=== PATIENT | male | born 1955 | race Caucasian/White ===

== ENCOUNTER → 2016-10-24 | Outpatient (CLI) | payer MEDICARE, OTHER ==
--- NOTE | 2016-10-24 15:46 | US ---
EXAMINATION TYPE: US bladder DATE OF EXAM: 10/24/2016 3:24 PM COMPARISON: US 2014 CLINICAL HISTORY: R35.0 FREQ URINATION. EXAM MEASUREMENTS: Post Void Residual Volume: 15.9 mL Color Doppler performed to assess ureteral jets. Bilateral Jets seen: small right jet was seen; prominent left jet seen Normal Post Void Residual (less than 50ml): Yes Incidental finding: prominent prostate is noted. IMPRESSION: 1. Prominent prostate. 2. Unremarkable incompletely distended urinary bladder.
== END | disposition home or self-care (01) ==
LOC: RADUSWWP 14:54
PROVIDERS: ATTEND Family Medicine
DX: R35.1 Nocturia (principal); R35.0 Frequency of micturition
CPT/HCPCS: 76857

== ENCOUNTER 2020-03-22 09:35 | Inpatient (IN) | payer MEDICARE ==
[2020-03-22 10:23] LABS: Basophils # (A) 0.1 k/uL (0-0.2); Basophils % (A) 1 %; Eosinophils # (A) 0.1 k/uL (0-0.7); Eosinophils % (A) 2 %; HCT 47.7 % (39.0-53.0); HGB 15.9 gm/dL (13.0-17.5); Lymphocytes # (A) 1.4 k/uL (1.0-4.8); Lymphocytes % (A) 19 %; MCH 34.4 pg (25.0-35.0); MCHC 33.3 g/dL (31.0-37.0); MCV 103.3 fL (80.0-100.0); Macrocytosis Slight; Mean Platelet Volume 6.8; Monocytes # (A) 0.5 k/uL (0-1.0); Monocytes % (A) 6 %; Neutrophils # (A) 5.4 k/uL (1.3-7.7); Neutrophils % (A) 71 %; Platelet Count 199 k/uL (150-450); RBC 4.61 m/uL (4.30-5.90); RDW 13.7 % (11.5-15.5); WBC 7.5 k/uL (3.8-10.6)
[2020-03-22 10:31] LABS: INR 1.1 (<1.2); Prothrombin Time 11.2 sec (9.0-12.0)
[2020-03-22 10:33] LABS: Calcium 9.5 mg/dL (8.4-10.2); Potassium 4.7 mmol/L (3.5-5.1)
--- NOTE | 2020-03-22 10:38 | XR ---
EXAMINATION TYPE: XR chest 2V DATE OF EXAM: 03/22/2020 COMPARISON: NONE HISTORY: Weakness. TECHNIQUE: Frontal and lateral views of the chest are obtained. FINDINGS: There is no focal air space opacity, pleural effusion, or pneumothorax seen. The cardiac silhouette size is enlarged. There is ectatic aortic knob causing right-sided tracheal deviation. Th e osseous structures are intact. IMPRESSION: Cardiomegaly without acute pulmonary process.
[2020-03-22] MEDS ORDERED: hydrALAZINE HCL 20 MG/ML 1 ML VIAL IVP STA (11:18)
[2020-03-22] MEDS ORDERED: amLODIPine 5 MG TAB PO STA (11:18)
[2020-03-22 11:20] LABS: Appearance,Urine Clear (Clear); Bacteria,Urine Rare /hpf; Bilirubin,Urine Negative (Negative); Blood,Urine Small (Negative); Color,Urine Yellow; Glucose,Urine (UA) Negative (Negative); Hyaline Casts,Urine 1 /lpf (0-2); Ketones,Urine Negative (Negative); Leukocyte Esterase,Urine Negative (Negative); Mucus,Urine Few /hpf; Nitrite,Urine Negative (Negative); Protein,Urine Trace (Negative); RBC,Urine 13 /hpf (0-5); Specific Gravity,Urine 1.023 (1.001-1.035); Squamous Epithelial Cell,Urine <1 /hpf (0-4); WBC,Urine 2 /hpf (0-5)
--- NOTE | 2020-03-22 11:23 | CT ---
EXAMINATION TYPE: CT brain wo con DATE OF EXAM: 03/22/2020 HISTORY: Off balance, AMS CT DLP: 1153.4 mGycm. Automated Exposure Control for Dose Reduction was Utilized. TECHNIQUE: CT scan of the head is performed without contrast. COMPARISON: None. FINDINGS: There is no acute intracranial hemorrhage or midline shift identified. There is diffuse v entricular and sulcal prominence consistent with diffuse age-related cerebral atrophy. Degree of vent ricular dilatation slightly out of proportion to degree of sulcal effacement. Fourth ventricle is not suspiciously prominent. Prominent CSF fossa inferiorly. Suspect evelyn cisterna magna. There is prominent nonspecific low-attenuation in the periventricular white matter. O ld lacunar infarct anterior medial left thalamus axial image 29. Hypoplastic left frontal sinus. The globes are intact and the visualized sinuses otherwise are clear. IMPRESSION: No acute intracranial hemorrhage or midline shift. There is mild to moderate diffuse ce rebral atrophy, cannot exclude underlying normal pressure hydrocephalus. Advanced nonspecific white matter changes present in the bases of proximal or proximal vessel ischemic change in patient this ag e. Other etiologies not excluded. Old anteromedial left thalamic lacunar infarct. Correlation with old outside CT or MRI would be beneficial to assess change.
--- NOTE | 2020-03-22 11:32 | ED ---
Weakness HPI - General Chief complaint: Weakness Stated complaint: off balance Time Seen by Provider: 03/22/20 09:47 Source: patient Mode of arrival: wheelchair Limitations: no limitations - History of Present Illness Initial comments: 64-year-old smoker with history of previous CVA, HTN presents emergency department today for chief complaint of off balance, bizarre behavior. Moist bedside states that patient seemed off balance today she states that he seemed wobbly when walking. She states that over the past week he has also been making bizarre comments that almost seems like he has dementia. She does not have specific examples very vague in detail she states does not appear lethargic patient has no complaints she states does not feel dizzy and nauseated [place] denies any vomiting or headaches. Patient denies any chest pain shortness of breath leg swelling patient denies visual changes or double vision. Patient is extremely hard of hearing but is able to read lips and answer questions appropriately. Patient family has no additional concerns. Patient pleasant appears in no distress on arrival. - Related Data Home Medications Medication Instructions Recorded Confirmed No Known Home Medications 03/22/20 03/22/20 Allergies Allergy/AdvReac Type Severity Reaction Status Date / Time No Known Allergies Allergy Verified 03/22/20 11:05 Review of Systems ROS Statement: Those systems with pertinent positive or pertinent negative responses have been documented in the HPI. ROS Other: All systems not noted in ROS Statement are negative. Past Medical History Past Medical History: Hypertension History of Any Multi-Drug Resistant Organisms: None Reported Past Surgical History: Unable to Obtain Past Psychological History: No Psychological Hx Reported Smoking Status: Current every day smoker Past Alcohol Use History: Rare Past Drug Use History: None Reported General Exam - General Exam Comments Initial Comments: General: The patient is awake and alert, in no distress Eye: +3 mm pupils are equal, round and reactive to light, extra-ocular movements are intact. No nystagmus. There is normal conjunctiva bilaterally. No signs of icterus. Ears, nose, mouth and throat: There are moist mucous membranes and no oral lesions. Neck: The neck is supple, there is no tenderness or JVD. Cardiovascular: There is a regular rate and rhythm. No murmur, rub or gallop is appreciated. Respiratory: Lungs are clear to auscultation, respirations are non-labored, breath sounds are equal. No wheezes, stridor, rales, or rhonchi. Gastrointestinal: Soft, non-distended, non-tender abdomen without masses or organomegaly noted. There is no rebound or guarding present. Musculoskeletal: Normal ROM, no tenderness. Strength 5/5 of the UE and LE equal in comparison b/l. Sensation intact of UE and LE b/l equal in comparison b/l. Radial pulses equal bilaterally 2+. Neurological: A&O x 3. CN II-XII intact grossly, There are no obvious motor or sensory deficits. Coordination appears grossly intact. Speech is normal. No pronator drift. Smooth and coordinated finger to nose, heel to ding. Skin: Skin is warm and dry and no rashes or lesions are noted. Psychiatric: Cooperative, appropriate mood & affect, normal judgment. Limitations: no limitations Course Vital Signs 03/22/20 03/22/20 03/22/20 09:36 11:18 12:00 Temperature 98.7 F Pulse Rate 80 72 77 Respiratory 16 18 18 Rate Blood Pressure 185/102 171/105 167/95 O2 Sat by Pulse 98 99 98 Oximetry Medical Decision Making - Medical Decision Making Labs stable. CT cannot rule out normal pressure hydrocephalus but otherwise no other definite findings aside from age related changed. Patient CXR clear. Lungs clear. Heart sounds within acceptable limits. No focal neurological deficits aside from patient appearing weakn/off balance with standing. UA within acceptable limits. Pt has no personal complaints. Patient case discussed with Dr. Sinclair who is agreeable to admission for neurological consultation. Ventricular rate 74 bpm, TN interval 186 pulse seconds, 2 taoist 72 ms, QT/QTC 386/428 ms. This is normal sinus there is no specific ST changes nonspecific T-wave abnormality. - Lab Data Result diagrams: 03/22/20 10:11 03/22/20 10:11 Lab Results 03/22/20 03/22/20 03/22/20 Range/Units 10:11 10:11 10:11 WBC 7.5 (3.8-10.6) k/uL RBC 4.61 (4.30-5.90) m/uL Hgb 15.9 (13.0-17.5) gm/dL Hct 47.7 (39.0-53.0) % MCV 103.3 H (80.0-100.0) fL MCH 34.4 (25.0-35.0) pg MCHC 33.3 (31.0-37.0) g/dL RDW 13.7 (11.5-15.5) % Plt Count 199 (150-450) k/uL Neutrophils % 71 % Lymphocytes % 19 % Monocytes % 6 % Eosinophils % 2 % Basophils % 1 % Neutrophils # 5.4 (1.3-7.7) k/uL Lymphocytes # 1.4 (1.0-4.8) k/uL Monocytes # 0.5 (0-1.0) k/uL Eosinophils # 0.1 (0-0.7) k/uL Basophils # 0.1 (0-0.2) k/uL Macrocytosis Slight PT 11.2 (9.0-12.0) sec INR 1.1 (<1.2) APTT 23.0 (22.0-30.0) sec Sodium (137-145) mmol/L Potassium (3.5-5.1) mmol/L Chloride (98-107) mmol/L Carbon Dioxide (22-30) mmol/L Anion Gap mmol/L BUN (9-20) mg/dL Creatinine (0.66-1.25) mg/dL Est GFR (CKD-EPI)AfAm (>60 ml/min/1.73 sqM) Est GFR (CKD-EPI)NonAf (>60 ml/min/1.73 sqM) Glucose (74-99) mg/dL Plasma Lactic Acid Kojo (0.7-2.0) mmol/L Calcium (8.4-10.2) mg/dL Magnesium (1.6-2.3) mg/dL Total Bilirubin (0.2-1.3) mg/dL AST (17-59) U/L ALT (4-49) U/L Alkaline Phosphatase (38-126) U/L Troponin I (0.000-0.034) ng/mL NT-Pro-B Natriuret Pep pg/mL Total Protein (6.3-8.2) g/dL Albumin (3.5-5.0) g/dL Urine Color Yellow Urine Appearance Clear (Clear) Urine pH 6.0 (5.0-8.0) Ur Specific [place] 1.023 (1.001-1.035) Urine Protein Trace H (Negative) Urine Glucose (UA) Negative (Negative) Urine Ketones Negative (Negative) Urine Blood Small H (Negative) Urine Nitrite Negative (Negative) Urine Bilirubin Negative (Negative) Urine Urobilinogen 6.0 (<2.0) mg/dL Ur Leukocyte Esterase Negative (Negative) Urine RBC 13 H (0-5) /hpf Urine WBC 2 (0-5) /hpf Ur Squamous Epith Cells <1 (0-4) /hpf Urine Bacteria Rare H (None) /hpf Hyaline Casts 1 (0-2) /lpf Urine Mucus Few H (None) /hpf 03/22/20 03/22/20 03/22/20 Range/Units 10:11 10:11 10:11 WBC (3.8-10.6) k/uL RBC (4.30-5.90) m/uL Hgb (13.0-17.5) gm/dL Hct (39.0-53.0) % MCV (80.0-100.0) fL MCH (25.0-35.0) pg MCHC (31.0-37.0) g/dL RDW (11.5-15.5) % Plt Count (150-450) k/uL Neutrophils % % Lymphocytes % % Monocytes % % Eosinophils % % Basophils % % Neutrophils # (1.3-7.7) k/uL Lymphocytes # (1.0-4.8) k/uL Monocytes # (0-1.0) k/uL Eosinophils # (0-0.7) k/uL Basophils # (0-0.2) k/uL Macrocytosis PT (9.0-12.0) sec INR (<1.2) APTT (22.0-30.0) sec Sodium 136 L (137-145) mmol/L Potassium 4.7 (3.5-5.1) mmol/L Chloride 105 (98-107) mmol/L Carbon Dioxide 26 (22-30) mmol/L Anion Gap 5 mmol/L BUN 20 (9-20) mg/dL Creatinine 1.15 (0.66-1.25) mg/dL Est GFR (CKD-EPI)AfAm 77 (>60 ml/min/1.73 sqM) Est GFR (CKD-EPI)NonAf 66 (>60 ml/min/1.73 sqM) Glucose 105 H (74-99) mg/dL Plasma Lactic Acid Kojo 0.8 (0.7-2.0) mmol/L Calcium 9.5 (8.4-10.2) mg/dL Magnesium 2.0 (1.6-2.3) mg/dL Total Bilirubin 1.0 (0.2-1.3) mg/dL AST 24 (17-59) U/L ALT 18 (4-49) U/L Alkaline Phosphatase 43 (38-126) U/L Troponin I <0.012 (0.000-0.034) ng/mL NT-Pro-B Natriuret Pep pg/mL Total Protein 7.0 (6.3-8.2) g/dL Albumin 4.0 (3.5-5.0) g/dL Urine Color Urine Appearance (Clear) Urine pH (5.0-8.0) Ur Specific [place] (1.001-1.035) Urine Protein (Negative) Urine Glucose (UA) (Negative) Urine Ketones (Negative) Urine Blood (Negative) Urine Nitrite (Negative) Urine Bilirubin (Negative) Urine Urobilinogen (<2.0) mg/dL Ur Leukocyte Esterase (Negative) Urine RBC (0-5) /hpf Urine WBC (0-5) /hpf Ur Squamous Epith Cells (0-4) /hpf Urine Bacteria (None) /hpf Hyaline Casts (0-2) /lpf Urine Mucus (None) /hpf 03/22/20 Range/Units 10:11 WBC (3.8-10.6) k/uL RBC (4.30-5.90) m/uL Hgb (13.0-17.5) gm/dL Hct (39.0-53.0) % MCV (80.0-100.0) fL MCH (25.0-35.0) pg MCHC (31.0-37.0) g/dL RDW (11.5-15.5) % Plt Count (150-450) k/uL Neutrophils % % Lymphocytes % % Monocytes % % Eosinophils % % Basophils % % Neutrophils # (1.3-7.7) k/uL Lymphocytes # (1.0-4.8) k/uL Monocytes # (0-1.0) k/uL Eosinophils # (0-0.7) k/uL Basophils # (0-0.2) k/uL Macrocytosis PT (9.0-12.0) sec INR (<1.2) APTT (22.0-30.0) sec Sodium (137-145) mmol/L Potassium (3.5-5.1) mmol/L Chloride (98-107) mmol/L Carbon Dioxide (22-30) mmol/L Anion Gap mmol/L BUN (9-20) mg/dL Creatinine (0.66-1.25) mg/dL Est GFR (CKD-EPI)AfAm (>60 ml/min/1.73 sqM) Est GFR (CKD-EPI)NonAf (>60 ml/min/1.73 sqM) Glucose (74-99) mg/dL Plasma Lactic Acid Kojo (0.7-2.0) mmol/L Calcium (8.4-10.2) mg/dL Magnesium (1.6-2.3) mg/dL Total Bilirubin (0.2-1.3) mg/dL AST (17-59) U/L ALT (4-49) U/L Alkaline Phosphatase (38-126) U/L Troponin I (0.000-0.034) ng/mL NT-Pro-B Natriuret Pep 104 pg/mL Total Protein (6.3-8.2) g/dL Albumin (3.5-5.0) g/dL Urine Color Urine Appearance (Clear) Urine pH (5.0-8.0) Ur Specific [place] (1.001-1.035) Urine Protein (Negative) Urine Glucose (UA) (Negative) Urine Ketones (Negative) Urine Blood (Negative) Urine Nitrite (Negative) Urine Bilirubin (Negative) Urine Urobilinogen (<2.0) mg/dL Ur Leukocyte Esterase (Negative) Urine RBC (0-5) /hpf Urine WBC (0-5) /hpf Ur Squamous Epith Cells (0-4) /hpf Urine Bacteria (None) /hpf Hyaline Casts (0-2) /lpf Urine Mucus (None) /hpf Disposition Clinical Impression: Generalized weakness, Altered mental status Disposition: ADMITTED IP TO THIS [facility] Condition: Stable Is patient prescribed a controlled substance at d/c from ED?: No Time of Disposition: 11:53 Decision to Admit Reason: Admit from EC Decision Date: 03/22/20 Decision Time: 11:53
[2020-03-22] MEDS ORDERED: NALOXONE 0.4 MG/ML 1 ML VIAL IV PRN (11:51)
[2020-03-22] MEDS: SODIUM CHLORIDE 0.9% 1,000 ML IV SCH (12:19)
[2020-03-22] MEDS ORDERED: NICOTINE 21MG/24HR PATCH TRANSDERM STA (12:22)
--- NOTE | 2020-03-22 17:26 | P.CNNES ---
History of Present Illness Consult date: 03/22/20 Requesting physician: Mariam Alcaraz Reason for Consult: Wobbly, acute behavioral changes past week. History of Present Illness: Patient is a 64-year-old male came to the hospital today at 9:30 AM for evaluation of balance issues, bizarre behavior. It was mentioned that patient was off balance today and was appearing wobbly when walking. Patient in the past week has been making bizarre commands that almost seems like has dementia. No dizziness or headache or nausea. Patient is extremely hard of hearing. Patient tells me that his balance has been off for last 3 days. Denies any focal symptoms. Patient states he had history of a stroke 3 years ago, that affected left side of the body. He feels his memory has been going downhill for last couple years. He is retired, lives with his . Patient's Vital signs on arrival was blood pressure 185/102, pulse rate 80, temperature 98.7. Computed tomography scan of head showed no acute intracranial hemorrhage or midline shift. There is mild to moderate diffuse cerebral atrophy, cannot exclude underlying normal pressure hydrocephalus. Advanced nonspecific white matter changes present. Old anterior medial left thalamic lacunar infarct. I reviewed the computed tomography scan on the computer, and agree with evidence of hydrocephalus. EKG shows normal sinus rhythm. Minimal voltage criteria for LVH. Chest x-ray showed cardiomegaly without acute pulmonary process. Patient's blood test shows normal CBC with elevated MCV 103.3, PT/PTT. Chem-20 is normal. UA showed 13 RBC and rare bacteria. Patient has smoked 1 pack per day for 20 years. Denies diabetes. Review of Systems As above in detail. Otherwise all 14 point review of systems reviewed and unremarkable. Patient does have some urgency. Patient denies any fever. Headaches states "not very often". Past Medical History Past Medical History: CVA/TIA, Hearing Disorder / Deafness, Hypertension, Renal Disease Additional Past Medical History / Comment(s): 2012 CVA with no residual, chronic kidney disease, occasional urinary incontinence/dribbles/frequent urination, occasional back pain. History of Any Multi-Drug Resistant Organisms: None Reported Past Surgical History: Appendectomy Additional Past Surgical History / Comment(s): colonoscopy Past Anesthesia/Blood Transfusion Reactions: No Reported Reaction Smoking Status: Current every day smoker - Past Family History Mother Family Medical History: Dementia, Hypertension Father Family Medical History: Cancer Additional Family Medical History / Comment(s): Lung cancer. Father was a smoker. Medications and Allergies Home Medications Medication Instructions Recorded Confirmed Type No Known Home Medications 03/22/20 03/22/20 History Allergies Allergy/AdvReac Type Severity Reaction Status Date / Time No Known Allergies Allergy Verified 03/22/20 11:05 Physical Examination - Vital Signs Vital Signs: Vital Signs Temp Pulse Pulse Pulse Resp BP BP 03/22/20 13:40 97.6 F 77 18 167/99 03/22/20 13:37 72 16 03/22/20 12:00 77 18 167/95 03/22/20 11:18 72 18 171/105 03/22/20 09:36 98.7 F 80 16 185/102 Pulse Ox 03/22/20 13:40 98 03/22/20 13:37 03/22/20 12:00 98 03/22/20 11:18 99 03/22/20 09:36 98 Intake and Output 03/21/20 03/22/20 03/22/20 22:59 06:59 14:59 Intake Total 780 Balance 780 Intake: Intake, IV Titration 60 Amount Sodium Chloride 0.9% 1, 60 000 ml @ 20 mls/hr IV . Q24H [facility] Rx#:[id number] Oral 720 Other: Voiding Method Bedside Commode Urinal # Voids 3 Weight 113.398 kg On examination patient is an elderly male, in no acute distress. Patient is alert and awake. He is very hard of hearing. Speech and language fu nctions are normal. Patient knows that it is March although states the year is 2021. He knows that he is in [facility] in [place]. Patient speaks with low volume. On cranial examination pupils are round and reacting to light, visual turner are full on confrontation extraocular muscles are intact with no nystagmus. Face is symmetric, tongue protrudes the midline. Palatal elevation and sensation normal. Hearing is severely decreased shoulder shrug normal on muscle strength testing there is no pronator drift and the strength is normal in arms and legs distally and proximally. Reflexes are 1 in the upper limbs, 3 at the knees 2 at ankles and plantars are up on the left but questionable up on the right. Sensory touch is equal. No ataxia for [id number] testing. Tone and bulk of muscles normal. Patient appears to have some truncal ataxia. According to the nursing report, when he sits on the edge of the bed, he tends to fall backwards. There is no obvious bruit, S1 and S2 audible abdomen soft nontender chest is clear. Peripheral pulses present. No edema Results - Laboratory Findings CBC and BMP: 03/22/20 10:11 03/22/20 10:11 Abnormal Lab Findings: Abnormal Labs 03/22/20 03/22/20 03/22/20 10:11 10:11 10:11 MCV 103.3 H Sodium 136 L Glucose 105 H Urine Protein Trace H Urine Blood Small H Urine RBC 13 H Urine Bacteria Rare H Urine Mucus Few H Assessment and Plan Assessment: * 64-year-old male admitted with a three-day history of gait imbalance, mental confusion. Computed tomography scan of the head revealed possibility of hydrocephalus. Rule out NPH. Rule out secondary causes. * Hypertension * Hard of hearing * Tobacco use Plan: * MRI of brain with and without contrast to evaluate for hydrocephalus, rule out mass. * Patient would need lumbar puncture with large volume tap, to assess if there is any clinical improvement. If his mentation and gait improves after lumbar puncture, then he would need neurosurgical consultation for consideration of ventricular paratonia shunt. We will also send spinal fluid to rule out any signs of infection. * EEG * B12, folate, TSH, A1c, RPR. * We will follow.
[2020-03-22 19:23] LABS: Hemoglobin A1C 5.3 % (4.0-6.0)
--- NOTE | 2020-03-22 21:37 | MR ---
EXAMINATION TYPE: MR brain wo con DATE OF EXAM: 03/22/2020 COMPARISON: None HISTORY: Hydrocephalus Multiplanar multiecho imaging of the brain was performed without contrast. There is enlargement of the lateral third and fourth ventricles. There is diffuse cerebral atrophy. T here is extensive increased signal in the periventricular white matter on the T2 and FLAIR images. Th ere is coalescent signal throughout the periventricular white matter. There is severe thinning of the corpus callosum. Diffusion images show no sign of an acute infarct. IMPRESSION: Moderately severe hydrocephalus with white matter signal changes consistent with transependymal edema and chronic small vessel ischemia.
[2020-03-22 23:11] LABS: Folate, Serum 2.8 ng/mL
[2020-03-23] MEDS: ASPIRIN 81 MG PO SCH (12:08)
[2020-03-23] MEDS ORDERED: LORazepam 2 MG/ML INJ IV STA (12:08)
[2020-03-23] MEDS: CLOPIDOGREL 75 MG TAB PO SCH (12:08)
[2020-03-23] MEDS: CYANOCOBALAMIN 1,000 MCG/ML 1 ML VIAL IM SCH (12:15)
[2020-03-23] MEDS: hydrALAZINE HCL 10 MG TAB PO SCH ×3 (14:38→22:24)
[2020-03-23] MEDS: SODIUM CHLORIDE 0.9% 1,000 ML IV SCH (14:39)
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
[2020-03-23] MEDS: FOLIC ACID 1 MG TAB PO SCH (16:37)
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
--- NOTE | 2020-03-23 16:55 | PN ---
PROGRESS NOTE CHIEF COMPLAINT: Mental status changes. HISTORY OF PRESENT ILLNESS: This gentleman remains awake and alert. His speech seems to be quite good. He is slightly confused, according to the family and he is more coherent than yesterday. I did not see him yesterday because I was not notified of his admission until this morning. PHYSICAL EXAMINATION: Chest is clear. Cardiac exam is normal. Abdomen is soft and nontender. Extremities are normal. Speech seems normal. He is alert to time, place, and person. He still has some weakness on the left. IMPRESSION: 1. Mental status changes. 2. Vascular dementia. 3. Hypertension. 4. Chronic obstructive pulmonary disease. 5. Presbycusis. PLAN: 1. Continue workup. 2. Control hypertension. 3. Physical, speech, and occupational therapies. 4. Discharge planning. MMKAITYL / IJN: [id number] /
[2020-03-23] MEDS: LORazepam 2 MG/ML INJ IV PRN (21:23)
[2020-03-24 11:04] LABS: Glucose,Whole Blood 97 mg/dL (75-99)
[2020-03-24] MEDS ORDERED: CLEVIDIPINE BUTYRATE 25 MG/50 ML VIAL IV ONE (11:22)
[2020-03-24] MEDS ORDERED: MIDAZOLAM 2 MG/2 ML VIAL ONE ×2 (11:25→11:30)
[2020-03-24] MEDS ORDERED: levETIRAcetam IV 1,000 MG in SALINE 1 100ML.BAG IVPB SCH (12:00)
[2020-03-24] MEDS ORDERED: ACYCLOVIR SODIUM 1,150 MG in SODIUM CHLORIDE 0.9% 250 ML IVPB SCH (12:00)
[2020-03-24] MEDS ORDERED: ACYCLOVIR SODIUM 1,000 MG in SODIUM CHLORIDE 0.9% 250 ML IVPB SCH (12:00)
[2020-03-24] MEDS ORDERED: ACETAMINOPHEN IV (For NPO) 1,000 MG in EMPTY BAG 1 BAG IVPB SCH (12:00)
[2020-03-24 12:01] VITALS: TEMP 100.7
[2020-03-24] MEDS: CYANOCOBALAMIN 1,000 MCG/ML 1 ML VIAL IM SCH (12:06)
[2020-03-24] MEDS: CLOPIDOGREL 75 MG TAB PO SCH (12:06)
[2020-03-24] MEDS: ASPIRIN 81 MG PO SCH (12:06)
[2020-03-24] MEDS: FOLIC ACID 1 MG TAB PO SCH (12:07)
[2020-03-24 12:49] LABS: Glucose,Whole Blood 96 mg/dL (75-99)
[2020-03-24] MEDS ORDERED: hydrALAZINE HCL 25 MG TAB PO SCH (13:00)
[2020-03-24] MEDS: hydrALAZINE HCL 10 MG TAB PO SCH (13:11)
[2020-03-24] MEDS ORDERED: CLEVIDIPINE BUTYRATE 25 MG in EMPTY BAG 1 BAG IV SCH (13:15)
[2020-03-24] MEDS: LORazepam 2 MG/ML INJ IV PRN (13:18)
[2020-03-24 13:59] LABS: Glucose,CSF 58 mg/dL (40-70); Total Protein,CSF 76 mg/dL (12-60)
[2020-03-24 14:05] LABS: Appearance,CSF Clear; CSF Tube Number 4; CSF Tube Volume 1.5; Nucleated Cells, CSF 1 u/L (0-5); Red Blood Cell,CSF 2 u/L (0-10)
[2020-03-24] MEDS: SODIUM CHLORIDE 0.9% 1,000 ML IV SCH (14:23)
--- NOTE | 2020-03-24 14:33 | P.CNPUL ---
History of Present Illness Consult date: 03/24/20 Chief complaint: altered mental status History of present illness: 64-year-old male patient who was admitted to the hospital because of an altered mental status. The patient apparently was off balance and he was having difficulties walking and an incentive was having balance issues and bizarre behavior. The patient denied having any headache. No neck stiffness. No focal neurological deficit. He has had a previous history of CVA around 3 years ago. This affected left side of his body. He is hard of hearing. The patient came into the hospital and he was hemodynamically stable. He was hypertensive initially. CAT scan of the brain showed no evidence of any tachycardia or hemorrhage or midline shift. There was mild to moderate diffuse cerebral atrophy and underlying normal pressure hydrocephalus was considered. He was seen by neurology. MRI of the brain was done that showed moderate to severe hydrocephalus with white matter signal changes consistent with transependymal edema and chronic small vessel ischemia.lumbar puncture was attempted by interventional radiology. This failure that the patient was quite restless and moving. Based on that, LP was not done. The patient a chest to the intensive care unit. Ultimately plan is to transfer this patient to [facility]. meanwhile, based on the diminished level of consciousness, the patient got transferred to the ICU. The patient will be started on IV acyclovir and Keppra pending results of the lumbar puncture and pending EEG. The patient was also started on Effexor for blood pressure control noting that the blood pressure was quite elevated.no history of head trauma. No history of substance abuse. Review of Systems ROS unobtainable: due to mental status Past Medical History Past Medical History: CVA/TIA, Hearing Disorder / Deafness, Hypertension Additional Past Medical History / Comment(s): 2013 CVA with no residual, occasional urinary incontinence/dribbles/frequent urination, occasional back pain. History of Any Multi-Drug Resistant Organisms: None Reported Past Surgical History: Appendectomy Additional Past Surgical History / Comment(s): colonoscopy Past Anesthesia/Blood Transfusion Reactions: No Reported Reaction Smoking Status: Current every day smoker - Past Family History Mother Family Medical History: Dementia, Hypertension Father Family Medical History: Cancer Additional Family Medical History / Comment(s): Lung cancer. Father was a smoker. Medications and Allergies Home Medications Medication Instructions Recorded Confirmed Type No Known Home Medications 03/22/20 03/22/20 History Allergies Allergy/AdvReac Type Severity Reaction Status Date / Time No Known Allergies Allergy Verified 03/22/20 11:05 Physical Exam Vitals: Vital Signs Temp Pulse Pulse Resp BP BP Pulse Ox 03/24/20 12:07 84 150/92 96 03/24/20 11:39 139/96 03/24/20 11:35 100.7 F H 100 16 184/86 178/85 98 03/24/20 00:00 104 H 85 24 03/23/20 20:42 24 03/23/20 20:41 104 H 24 170/101 94 L 03/23/20 16:29 100 22 160/94 94 L 03/23/20 15:00 70 22 144/100 95 Intake and Output 03/23/20 03/24/20 03/24/20 22:59 06:59 14:59 Intake Total 0 0 Balance 0 0 Intake: Intake, IV Titration 0 0 Amount Sodium Chloride 0.9% 1, 0 0 000 ml @ 20 mls/hr IV . Q24H [facility] Rx#:[id number] Other: Voiding Method Diaper Diaper Incontinent # Voids 0 0 # Bowel Movements 0 0 On examination patient is an elderly male, in no acute distress. patient is unresponsive. The patient is not following any commands. He is sometimes restless in bed and he thrashes. He cannot hold a conversation. He cannot speak. On cranial examination pupils are round and reacting to light, visual turner are full on confrontation extraocular muscles are intact with no nystagmus. Face is symmetric, tongue protrudes the midline. Palatal elevation and sensation normal. motor function cannot be assessed. The neurologic exam is nonfocal as the patient is moving all 4 extremities without any limitation. Reflexes are 1 in the upper limbs, 3 at the knees 2 at ankles and plantars are up on the left but questionable up on the right. Sensory touchcannot be assessed. gait cannot be assessed Tone and bulk of muscles normal. Head exam was generally normal. There was no scleral icterus or corneal arcus. Mucous membranes were moist. Neck was supple and without jugular venous distension, thyromegaly, or carotid bruits. Carotids were easily palpable bilaterally. There was no adenopathy. Lungs were clear to auscultation and percussion, and with normal diaphragmatic excursion. No wheezes or rales were noted. Cardiac exam revealed the PMI to be normally situated and sized. The rhythm was regular and no extrasystoles were noted during several minutes of auscultation. The first and second heart sounds were normal and physiologic splitting of the second heart sound was noted. There were no murmurs, rubs, clicks, or gallops. Abdominal exam revealed normal bowel sounds. The abdomen was soft, non-tender, and without masses, organomegaly, or appreciable enlargement of the abdominal aorta. Examination of the extremities revealed easily palpable radial, femoral and pedal pulses. There was no cyanosis, clubbing or edema. Examination of the skin revealed no evidence of significant rashes, suspicious appearing nevi or other concerning lesions. Results - Laboratory Findings CBC and BMP: 03/22/20 10:11 03/22/20 10:11 PT/INR, D-dimer PT 11.2 sec (9.0-12.0) 03/22/20 10:11 INR 1.1 (<1.2) 03/22/20 10:11 Abnormal lab findings: Abnormal Labs 03/22/20 03/22/20 03/22/20 10:11 10:11 10:11 MCV 103.3 H Sodium 136 L Glucose 105 H Urine Protein Trace H Urine Blood Small H Urine RBC 13 H Urine Bacteria Rare H Urine Mucus Few H CSF Total Protein 03/24/20 11:38 MCV Sodium Glucose Urine Protein Urine Blood Urine RBC Urine Bacteria Urine Mucus CSF Total Protein 76 H Assessment and Plan Plan: 1 altered mental status, on that investigation. The patient may have an underlying encephalitis and consider viral encephalitis. CAT scan of the brain and MRI of the brain showing hydrocephalus. Consider the possibility of normal pressure hydrocephalus. 2 Hypertension with elevated blood pressure 3 previous history of CVA, 2012 4 BPH 5 chronic back pain 6. Hearing impairment Plan Transfer the patient to the ICU for neurologic monitoring Lumbar puncture was done at the bedside. The patient was given a total of 4 mg of Versed and once he became more rested, a lumbar puncture wasn't without any complications. This will be sent for analysis. Agree on acyclovir Agree on Keppra Obtain an EEG throat positive seizure activity we'll utilize Cleviprex drip for blood pressure control for blood pressure control neurologist on the case. We'll continue to follow. Tentative plan is transfer this patient to [facility] for further neurologic investigation.
[2020-03-24 14:34] VITALS: BP 160/90; PULSE 90; RESP 21
[2020-03-24] MEDS ORDERED: THIAMINE 100 MG TAB PO SCH (15:00)
--- NOTE | 2020-03-24 15:11 | P.PCN ---
Date of Procedure: 03/24/20 Preoperative Diagnosis: altered mental status Postoperative Diagnosis: altered mental status Procedure(s) Performed: lumbar puncture Surgeon: Karyna Rodriguez Poultry Field Service Technician #1: Ana Nolan P[employer] Field Service Technician #2: Marimar Worthy Estimated Blood Loss (ml): 0 Pathology: other Condition: critical Disposition: ICU Indications for Procedure: altered mental status Operative Findings: PROCEDURE PERFORMED: Lumbar puncture. The procedure, benefits, risks including possible risks of infection were explained to the patient and his father, who is signing the consent form. Al ternatives were explained. They agreed to proceed with the lumbar puncture. Permit was signed and is on the chart. The indication was to rule out toxoplasmosis or any other DIE FITTER infection. DESCRIPTION: The area was prepped and draped in a sterile fashion. Lidocaine 1% of 5 mL was applied to the L3-L4 spinal space after the area had been prepped with Betadine three times. A 20-gauge spinal needle was then inserted into the L3-L4 space. Attempt was successful on the first try and 10 mLs of clear, colorless CSF were obtained. The spinal needle was then withdrawn and the area cleaned and dried and a Band-Aid applied to the clean, dry area. COMPLICATIONS: None. The patient was resting comfortably and tolerated the procedure well. ESTIMATED BLOOD LOSS: None. DISPOSITION: The patient was resting comfortably with nonlabored breathing and the incision was clean, dry, and intact. Labs and cultures were sent for the usual in addition to some extra tests that had been ordered.
--- NOTE | 2020-03-24 15:36 | EEG ---
ELECTROENCEPHALOGRAM REPORT DATE OF SERVICE: 03/24/2020 PREAMBLE: This is a 64-year-old male with history of altered mental status. This study is performed to evaluate for any epileptiform activity or encephalopathy. Patient was asleep during most of the study. EEG FINDINGS: This is a 21-channel routine EEG recording in a patient utilizing 10-20 international system with referential and bipolar montages. Background consists of moderately well developed, poorly regulated, moderate voltage activity in diffuse 1-2 hertz delta mixed with some 6 hertz theta activity. Background does not seem to be reactive to eye opening or closing. Intermittent right hemispheric sharply contoured waves were seen. No electrographic seizure was recorded. Photic driving response was not seen. IMPRESSION: This is an abnormal EEG due to: 1. Background slowing of moderate to severe degree. This is suggestive of generalized cerebral dysfunction as can be seen with toxic metabolic encephalopathy or due to diffuse structural brain abnormality. 2. Some sharply contoured right hemispheric waves were seen, which did not appear clearly epileptiform. Prolonged EEG is recommended to rule out underlying epileptiform activity. MMODL / IJN: [id number] / [facility] HOSPITALDesirae
--- NOTE | 2020-03-24 19:28 | P.PN ---
Subjective Progress Note Date: 03/24/20 Patient was seen for a follow-up. Patient continues to be very severely encephalopathic. Patient not following any commands. Patient was very lethargic. Gaze somewhat deviated to the left side. No seizures have been reported. Patient has received 0.5 mg of Ativan last night at 9:30 PM, nothing since then. Still very lethargic. Objective - Vital Signs Vital signs: Vital Signs Temp 100.7 F H 03/24/20 11:35 Pulse 90 03/24/20 14:00 Resp 21 03/24/20 14:00 BP 160/90 03/24/20 14:00 Pulse Ox 96 03/24/20 12:07 Intake & Output 03/23/20 03/24/20 03/24/20 18:59 06:59 18:59 Intake Total 0 3.133 Output Total 45 Balance 0 -41.867 Intake: Intake, IV Titration 0 3.133 Amount Clevidipine Butyrate 25 3.133 mg In Empty Bag 1 bag @ 1 MG/HR 2 mls/hr IV .Q24H [facility] Rx#:[id number] Sodium Chloride 0.9% 1, 0 000 ml @ 20 mls/hr IV . Q24H [facility] Rx#:[id number] Output: Urine 45 Other: Voiding Method Diaper Diaper Incontinent # Voids 4 0 # Bowel Movements 0 - Exam Patient is very lethargic, does not follow commands, or much opens eyes. Patient does grimace to painful stimuli. Pupils are round and reacting. Patient's gaze was noted to be deviated to the left side. Tone is equal bilaterally. Doesn't grimace to painful stimulation. Face appears symmetric. Muscle strength cannot be tested. Reflexes are symmetric and patient has bilateral Babinski. No obvious twitching or seizure activity noted. - Labs CBC & Chem 7: 03/22/20 10:11 03/22/20 10:11 Labs: Abnormal Lab Results - Last 24 Hours (Table) 03/24/20 Range/Units 11:38 CSF Total Protein 76 H (12-60) mg/dL Assessment and Plan Assessment: * Hydrocephalus, probable NPH. Rule out secondary causes. * Acute encephalopathy, progressively getting worse. Patient has developed low- grade fever. Rule out herpes encephalitis. * Hypertension * Hard of hearing * Tobacco use Plan: * A stat EEG was performed, which revealed background slowing of moderate to severe degree. This is suggestive of generalized cerebral dysfunction as can be seen with toxic metabolic encephalopathy, or due to diffuse structural brain abnormality. Some sharply contoured right hemispheric waves were seen, which did not appear clearly epileptiform. Prolonged EEG is recommended to rule out underlying epileptiform activity. Patient empirically started on Keppra 1000 mg twice a day. Patient also started on acyclovir 10 mg/kg IVPB every 8 hours, first dose stat to cover herpes encephalitis. * Lumbar puncture performed by Dr Rodriguez, which revealed 1 WBC, 2 RBC, glucose 58, protein 76. * MRI of brain without contrast revealed moderately severe hydrocephalus with white matter signal changes consistent with transependymal edema and chronic small vessel ischemia. * Recommend neurosurgical consultation. Patient to be transferred to [facility] for further care. * B12 is low 221, will start replacement, folate also very low 2.8, on replacement. TSH normal 0.800, A1c 5.3, RPR nonreactive. Empirically started thiamine 100 mg orally daily.
--- NOTE | 2020-03-25 21:04 | PN ---
PROGRESS NOTE DATE OF SERVICE: March 24, 2020. CHIEF COMPLAINT: Mental status changes. HISTORY OF PRESENT ILLNESS: This gentleman is quite lethargic this morning. He has been seen and evaluated by Neurology. Lumbar puncture was attempted without success because of his agitation. Planned again for this afternoon. Neurology is thinking about transferring him to a tertiary hospital to rule out and be possibly treated for high pressure hydrocephalus. It is more likely that this is low-pressure hydrocephalus. PHYSICAL EXAMINATION: Chest is clear. Cardiac exam is normal. He is difficult to arouse this morning. IMPRESSION: 1. Mental status changes. 2. Ischemic encephalopathy. 3. Vascular dementia. 4. Chronic obstructive pulmonary disease. 5. History of hypertension. PLAN: Continue to monitor and await results of spinal tap and further directions from Neurology. MMODL / IJN: [id number] /
--- NOTE | 2020-03-25 21:31 | DS ---
DISCHARGE SUMMARY DATE OF SERVICE: March 24, 2020. CHIEF COMPLAINT: Mental status changes and encephalopathy. HISTORY OF PRESENT ILLNESS AND PHYSICAL EXAMINATION: Details of this man's history and physical can be found in the initial workup. LABORATORY STUDIES: While he was in the hospital, he had laboratory studies, details of which can be found in the laboratory section of his chart. COURSE IN THE HOSPITAL: After admission, he was placed on bedrest and started on intravenous fluids. He was worked up for possible CVA. He was seen by Neurology. The CT demonstrated cerebral atrophy with enlarged ventricles. A lumbar puncture was attempted without success due to his agitation. Neurology felt that he should be transferred to the ICU. Apparently was there for several hours and arrangements were made for him to be transferred to a [facility] hospital. FINAL DIAGNOSES: 1. Acute mental status changes. 2. Ischemic encephalopathy. 3. Vascular dementia. 4. Atherosclerotic cardiovascular disease. 5. Hypertension. 6. Chronic obstructive pulmonary disease. 7. Presbycusis. OPERATIONS: None. CONSULTATIONS: Neurology and intensive medicine. MMODL / IJN: [id number] /
== END 2020-03-24 15:45 | disposition short-term general hospital (02) | DRG 71 ==
LOC: EC 09:35 → 6NMEDSUR 11:51 → OBSVTOIN 03-23 12:54 → 2SICU 03-24 12:39
PROVIDERS: ADMIT Family Medicine; ATTEND Family Medicine
PROC: 009U3ZX Drainage of Spinal Canal, Percutaneous Approach, Diagnostic (ICD-10-PCS; principal; 2020-03-24)
DX: G93.49 Other encephalopathy (principal); G91.9 Hydrocephalus, unspecified; F01.50 Vascular dementia, unspecified severity, without behavioral disturbance, psychotic disturbance, mood disturbance, and anxiety; I11.9 Hypertensive heart disease without heart failure; J44.9 Chronic obstructive pulmonary disease, unspecified; I69.334 Monoplegia of upper limb following cerebral infarction affecting left non-dominant side; E78.5 Hyperlipidemia, unspecified; H91.10 Presbycusis, unspecified ear; I25.10 Atherosclerotic heart disease of native coronary artery without angina pectoris; R40.2142 Coma scale, eyes open, spontaneous, at arrival to emergency department; R40.2362 Coma scale, best motor response, obeys commands, at arrival to emergency department; R40.2252 Coma scale, best verbal response, oriented, at arrival to emergency department; R26.89 Other abnormalities of gait and mobility; N40.1 Benign prostatic hyperplasia with lower urinary tract symptoms; N39.498 Other specified urinary incontinence; R35.0 Frequency of micturition; G89.29 Other chronic pain; M54.9 Dorsalgia, unspecified; F17.210 Nicotine dependence, cigarettes, uncomplicated; Z71.6 Tobacco abuse counseling; Z97.4 Presence of external hearing-aid; Z87.442 Personal history of urinary calculi; Z90.49 Acquired absence of other specified parts of digestive tract; Z87.19 Personal history of other diseases of the digestive system; Z87.448 Personal history of other diseases of urinary system; Z98.890 Other specified postprocedural states; Z82.49 Family history of ischemic heart disease and other diseases of the circulatory system; Z80.1 Family history of malignant neoplasm of trachea, bronchus and lung
CPT/HCPCS: 36415; 70450; 70551; 71046; 80053; 81001; 82607; 82746; 82945; 83036; 83605; 83735; 83880; 84157; 84443; 84484; 85025; 85610; 85730; 86592; 86780; 87070; 87205; 87252; 87327; 87496; 87498; 87529; 87798; 89050; 93005; 95819; 96374; 99285

== ENCOUNTER 2020-04-14 08:49 | Inpatient (IN) | payer MEDICARE ==
[2020-04-14] MEDS ORDERED: SODIUM CHLORIDE 0.9% 500 ML 500 ML IV ONE (08:53)
--- NOTE | 2020-04-14 09:07 | ED ---
General Adult HPI - General Stated complaint: Fall Time Seen by Provider: 04/14/20 08:49 Source: EMS, RN notes reviewed, old records reviewed - History of Present Illness Initial comments: This is a 64-year-old male who presents to the emergency department from the [facility]. Patient has a history of hydrocephalus and is typically at his baseline alert but not oriented at all. Patient was found on the floor who was a non-witnessed fall staff thought there might be a bump on the back of his head so they sent to the emergency department. Patient is unable to give us any history no staff came with the patient so the only history have is that he was found on the floor from an unwitnessed fall. - Related Data Home Medications Medication Instructions Recorded Confirmed Acetaminophen [Tylenol 8 Hour] 650 mg PEG/G-TUBE TID PRN 04/14/20 04/14/20 Aspirin [[place] Aspirin EC] 81 mg PEG/G-TUBE DAILY 04/14/20 04/14/20 Atorvastatin [Lipitor] 10 mg PEG/G-TUBE HS 04/14/20 04/14/20 Folic Acid 0.4 mg PEG/G-TUBE DAILY 04/14/20 04/14/20 Ipratropium-Albuterol Nebulize 3 ml INHALATION RT-Q4H PRN 04/14/20 04/14/20 [Duoneb 0.5 mg-3 mg/3 ml Soln] Jevity 1.5 Damián Liquid 1.5 box PEG/G-TUBE BID 04/14/20 04/14/20 Ondansetron HCl [Zofran] 4 mg PEG/G-TUBE Q6H PRN 04/14/20 04/14/20 Propranolol HCl 60 mg PEG/G-TUBE DAILY 04/14/20 04/14/20 QUEtiapine [SEROquel] 50 mg PEG/G-TUBE TID 04/14/20 04/14/20 Thiamine HCl [Vitamin B-1] 300 mg PEG/G-TUBE DAILY 04/14/20 04/14/20 amLODIPine [Norvasc] 10 mg PEG/G-TUBE DAILY 04/14/20 04/14/20 Allergies Allergy/AdvReac Type Severity Reaction Status Date / Time No Known Allergies Allergy Verified 03/22/20 11:05 Review of Systems ROS Statement: Those systems with pertinent positive or pertinent negative responses have been documented in the HPI. ROS Other: All systems not noted in ROS Statement are negative. Past Medical History Past Medical History: CVA/TIA, Hearing Disorder / Deafness, Hypertension Additional Past Medical History / Comment(s): 2013 CVA with no residual, occasional urinary incontinence/dribbles/frequent urination, occasional back pain. History of Any Multi-Drug Resistant Organisms: None Reported Past Surgical History: Appendectomy Additional Past Surgical History / Comment(s): colonoscopy Past Anesthesia/Blood Transfusion Reactions: No Reported Reaction Smoking Status: Current every day smoker - Past Family History Mother Family Medical History: Dementia, Hypertension Father Family Medical History: Cancer Additional Family Medical History / Comment(s): Lung cancer. Father was a smoker. General Exam - General Exam Comments Initial Comments: GENERAL: Patient is well-developed and well-nourished. Patient is nontoxic and well- hydrated and is in no acute distress. ENT: Neck is soft and supple. No significant lymphadenopathy is noted. Oropharynx is clear. Moist mucous membranes. Neck has full range of motion without eliciting any pain. EYES: The sclera were anicteric and conjunctiva were pink and moist. Extraocular movements were intact and pupils were equal round and reactive to light. Eyelids were unremarkable. PULMONARY: Unlabored respirations. Good breath sounds bilaterally. No audible rales rhonchi or wheezing was noted. CARDIOVASCULAR: There is a regular rate and rhythm without any murmurs gallops or rubs. ABDOMEN: Soft and nontender with normal bowel sounds. SKIN: Skin is clear with no lesions or rashes and otherwise unremarkable. NEUROLOGIC: Patient is alert and oriented 0. Cranial nerves II through XII are grossly intact. Motor and sensory are also intact. Normal speech, volume and content. Symmetrical smile. MUSCULOSKELETAL: Normal extremities with adequate strength and full range of motion. LYMPHATICS: No significant lymphadenopathy is noted PSYCHIATRIC: Normal psychiatric evaluation. Course Vital Signs 04/14/20 08:51 Temperature 99 F Pulse Rate 98 Respiratory 20 Rate Blood Pressure 153/94 O2 Sat by Pulse 95 Oximetry Medical Decision Making - Medical Decision Making EKG shows normal sinus rhythm at 90 bpm [place] interval is 164 QRS is 66 QT interval 340 QTC is 434. Patient's EKG shows no ST segment elevation or depression. CT of the brain and C-spine showed no acute abnormality. I spoke with Dr. Pate and he wanted to admit the patient for the leukocytosis as well as the hematuria. - Lab Data Result diagrams: 04/14/20 09:00 04/14/20 09:00 Lab Results 04/14/20 04/14/20 04/14/20 Range/Units 09:00 09:00 09:00 WBC 19.3 H (3.8-10.6) k/uL RBC 4.63 (4.30-5.90) m/uL Hgb 15.9 (13.0-17.5) gm/dL Hct 47.8 (39.0-53.0) % MCV 103.2 H (80.0-100.0) fL MCH 34.3 (25.0-35.0) pg MCHC 33.3 (31.0-37.0) g/dL RDW 13.8 (11.5-15.5) % Plt Count 217 (150-450) k/uL Neutrophils % 83 % Lymphocytes % 8 % Monocytes % 6 % Eosinophils % 3 % Basophils % 0 % Neutrophils # 16.0 H (1.3-7.7) k/uL Lymphocytes # 1.5 (1.0-4.8) k/uL Monocytes # 1.1 H (0-1.0) k/uL Eosinophils # 0.5 (0-0.7) k/uL Basophils # 0.1 (0-0.2) k/uL Macrocytosis Slight PT (9.0-12.0) sec INR (<1.2) APTT (22.0-30.0) sec Sodium 140 (137-145) mmol/L Potassium 5.4 H (3.5-5.1) mmol/L Chloride 107 (98-107) mmol/L Carbon Dioxide 26 (22-30) mmol/L Anion Gap 7 mmol/L BUN 36 H (9-20) mg/dL Creatinine 1.12 (0.66-1.25) mg/dL Est GFR (CKD-EPI)AfAm 79 (>60 ml/min/1.73 sqM) Est GFR (CKD-EPI)NonAf 68 (>60 ml/min/1.73 sqM) Glucose 163 H (74-99) mg/dL Calcium 9.7 (8.4-10.2) mg/dL Total Bilirubin 0.8 (0.2-1.3) mg/dL AST 29 (17-59) U/L ALT 48 (4-49) U/L Alkaline Phosphatase 90 (38-126) U/L Troponin I (0.000-0.034) ng/mL Total Protein 7.4 (6.3-8.2) g/dL Albumin 3.7 (3.5-5.0) g/dL Urine Color Yellow Urine Appearance Cloudy (Clear) Urine pH 5.0 (5.0-8.0) Ur Specific [place] 1.020 (1.001-1.035) Urine Protein 1+ H (Negative) Urine Glucose (UA) Negative (Negative) Urine Ketones Negative (Negative) Urine Blood Moderate H (Negative) Urine Nitrite Negative (Negative) Urine Bilirubin Negative (Negative) Urine Urobilinogen <2.0 (<2.0) mg/dL Ur Leukocyte Esterase Negative (Negative) Urine RBC >182 H (0-5) /hpf Urine WBC 2 (0-5) /hpf Urine Opiates Screen Not Detected (NotDetected) Ur Oxycodone Screen Not Detected (NotDetected) Urine Methadone Screen Not Detected (NotDetected) Ur Propoxyphene Screen Not Detected (NotDetected) Ur Barbiturates Screen Not Detected (NotDetected) U Tricyclic Antidepress Detected H (NotDetected) Ur Phencyclidine Scrn Not Detected (NotDetected) Ur Amphetamines Screen Not Detected (NotDetected) U Methamphetamines Scrn Not Detected (NotDetected) U Benzodiazepines Scrn Not Detected (NotDetected) Urine Cocaine Screen Not Detected (NotDetected) U Marijuana (THC) Screen Not Detected (NotDetected) 04/14/20 04/14/20 Range/Units 09:00 10:22 WBC (3.8-10.6) k/uL RBC (4.30-5.90) m/uL Hgb (13.0-17.5) gm/dL Hct (39.0-53.0) % MCV (80.0-100.0) fL MCH (25.0-35.0) pg MCHC (31.0-37.0) g/dL RDW (11.5-15.5) % Plt Count (150-450) k/uL Neutrophils % % Lymphocytes % % Monocytes % % Eosinophils % % Basophils % % Neutrophils # (1.3-7.7) k/uL Lymphocytes # (1.0-4.8) k/uL Monocytes # (0-1.0) k/uL Eosinophils # (0-0.7) k/uL Basophils # (0-0.2) k/uL Macrocytosis PT 10.6 (9.0-12.0) sec INR 1.0 (<1.2) APTT 23.9 (22.0-30.0) sec Sodium (137-145) mmol/L Potassium (3.5-5.1) mmol/L Chloride (98-107) mmol/L Carbon Dioxide (22-30) mmol/L Anion Gap mmol/L BUN (9-20) mg/dL Creatinine (0.66-1.25) mg/dL Est GFR (CKD-EPI)AfAm (>60 ml/min/1.73 sqM) Est GFR (CKD-EPI)NonAf (>60 ml/min/1.73 sqM) Glucose (74-99) mg/dL Calcium (8.4-10.2) mg/dL Total Bilirubin (0.2-1.3) mg/dL AST (17-59) U/L ALT (4-49) U/L Alkaline Phosphatase (38-126) U/L Troponin I <0.012 (0.000-0.034) ng/mL Total Protein (6.3-8.2) g/dL Albumin (3.5-5.0) g/dL Urine Color Urine Appearance (Clear) Urine pH (5.0-8.0) Ur Specific [place] (1.001-1.035) Urine Protein (Negative) Urine Glucose (UA) (Negative) Urine Ketones (Negative) Urine Blood (Negative) Urine Nitrite (Negative) Urine Bilirubin (Negative) Urine Urobilinogen (<2.0) mg/dL Ur Leukocyte Esterase (Negative) Urine RBC (0-5) /hpf Urine WBC (0-5) /hpf Urine Opiates Screen (NotDetected) Ur Oxycodone Screen (NotDetected) Urine Methadone Screen (NotDetected) Ur Propoxyphene Screen (NotDetected) Ur Barbiturates Screen (NotDetected) U Tricyclic Antidepress (NotDetected) Ur Phencyclidine Scrn (NotDetected) Ur Amphetamines Screen (NotDetected) U Methamphetamines Scrn (NotDetected) U Benzodiazepines Scrn (NotDetected) Urine Cocaine Screen (NotDetected) U Marijuana (THC) Screen (NotDetected) Disposition Clinical Impression: Fall, Hematuria, Leukocytosis Disposition: ADMITTED IP TO THIS HOSP Referrals: Khanh Sosa MD [Primary Care Provider] - 1-2 days Time of Disposition: 11:11
[2020-04-14 09:30] LABS: Appearance,Urine Cloudy (Clear); Bilirubin,Urine Negative (Negative); Blood,Urine Moderate (Negative); Color,Urine Yellow; Glucose,Urine (UA) Negative (Negative); Ketones,Urine Negative (Negative); Leukocyte Esterase,Urine Negative (Negative); Nitrite,Urine Negative (Negative); Protein,Urine 1+ (Negative); RBC,Urine >182 /hpf (0-5); Urobilinogen,Urine <2.0 mg/dL (<2.0); WBC,Urine 2 /hpf (0-5)
[2020-04-14 09:31] LABS: Albumin 3.7 g/dL (3.5-5.0); Calcium 9.7 mg/dL (8.4-10.2); Potassium 5.4 mmol/L (3.5-5.1); Total Bilirubin 0.8 mg/dL (0.2-1.3); Total Protein 7.4 g/dL (6.3-8.2)
[2020-04-14 09:36] LABS: Basophils # (A) 0.1 k/uL (0-0.2); Basophils % (A) 0 %; Eosinophils # (A) 0.5 k/uL (0-0.7); Eosinophils % (A) 3 %; HCT 47.8 % (39.0-53.0); HGB 15.9 gm/dL (13.0-17.5); Lymphocytes # (A) 1.5 k/uL (1.0-4.8); Lymphocytes % (A) 8 %; MCH 34.3 pg (25.0-35.0); MCHC 33.3 g/dL (31.0-37.0); MCV 103.2 fL (80.0-100.0); Macrocytosis Slight; Mean Platelet Volume 9.8; Monocytes # (A) 1.1 k/uL (0-1.0); Monocytes % (A) 6 %; Neutrophils % (A) 83 %; Platelet Count 217 k/uL (150-450); RBC 4.63 m/uL (4.30-5.90); RDW 13.8 % (11.5-15.5); WBC 19.3 k/uL (3.8-10.6)
[2020-04-14 09:42] LABS: Amphetamine Screen,Urine Not Detected (NotDetected); Barbiturate Screen,Urine Not Detected (NotDetected); Benzodiazepines Screen,Urine Not Detected (NotDetected); Cocaine Screen,Urine Not Detected (NotDetected); Methadone Screen, Urine Not Detected (NotDetected); Opiate Screen,Urine Not Detected (NotDetected); Oxycodone Screen, Urine Not Detected (NotDetected); Phencyclidine Screen,Urine Not Detected (NotDetected); Tricyclic Antidepressant,Urine Detected (NotDetected); Urn Cannabinoid Scrn Not Detected (NotDetected)
--- NOTE | 2020-04-14 09:44 | XR ---
EXAMINATION TYPE: XR chest 2V DATE OF EXAM: 04/14/2020 CLINICAL HISTORY: Altered mental status TECHNIQUE: Frontal and lateral views of the chest are obtained. COMPARISON: 03/22/2020 chest radiograph FINDINGS: Cardiac size normal with ectatic thoracic aorta. Mediastinal silhouette normal. Pulmonary vasculature is normal. There is no focal air space opacity, pleural effusion, or pneumothorax seen. T he osseous structures are intact. IMPRESSION: No acute cardiopulmonary process.
--- NOTE | 2020-04-14 10:14 | CT ---
EXAMINATION TYPE: CT brain cspine wo con DATE OF EXAM: 04/14/2020 COMPARISON: Prior CT 03/22/2020 HISTORY: Fall CT DLP: 1534 mGycm Automated exposure control for dose reduction was used. TECHNIQUE: CT scan of the head and cervical spine are performed without contrast. FINDINGS: The brain shows a stable appearance. Periventricular white matter shows patchy low attenua tion, there is lacunar infarct involving the thalamus on the left. Prominence of the ventricles is si milar. There is no acute intracranial hemorrhage, mass effect, or midline shift identified. The vent ricles and sulci are unchanged. The globes are intact and the visualized sinuses are clear. Cervical spine is visualized in its entirety from C1 through upper thoracic levels and demonstrates s atisfactory alignment without evidence of acute fracture or dislocation. Prevertebral soft tissue ap pears within normal limits. There is some motion on the exam. There is spondylosis, loss of disc heig ht C3-4 and C4-5, multilevel foraminal encroachment. The C1-C2 articulation is unremarkable. IMPRESSION: 1. There is no acute fracture or dislocation evident in the cervical spine. 2. No acute intracranial hemorrhage, mass effect, or midline shift is seen.
[2020-04-14 11:08] LABS: Partial Thromboplastin Time 23.9 sec (22.0-30.0); Prothrombin Time 10.6 sec (9.0-12.0)
[2020-04-14] MEDS ORDERED: SODIUM CHLORIDE 0.9% 1,000 ML IV ONE (11:11)
[2020-04-14] MEDS ORDERED: IPRATROPIUM-ALBUTEROL 3 ML NEB INHALATION PRN (16:28)
[2020-04-14] MEDS ORDERED: ONDANSETRON 4 MG TAB PEG/G-TUBE PRN (16:28)
[2020-04-14] MEDS ORDERED: ACETAMINOPHEN TAB 325 MG TAB PEG/G-TUBE PRN (16:28)
[2020-04-14] MEDS: amLODIPine 10 MG TAB PEG/G-TUBE SCH (17:47)
[2020-04-14] MEDS: FOLIC ACID 1 MG TAB PEG/G-TUBE SCH (17:47)
[2020-04-14] MEDS: ASPIRIN 81 MG PEG/G-TUBE SCH (17:47)
[2020-04-14] MEDS: QUEtiapine 50 MG TAB PEG/G-TUBE SCH ×2 (17:47→21:04)
[2020-04-14] MEDS: PROPRANOLOL 20 MG TAB PEG/G-TUBE SCH (18:09)
[2020-04-14] MEDS ORDERED: NON FORMULARY DRUG (Jevity 1.5 Cal Liquid 1,000 ML Liquid) PEG/G-TUBE SCH (21:00)
[2020-04-14] MEDS: ATORVASTATIN 10 MG TAB PEG/G-TUBE SCH (21:03)
[2020-04-15] MEDS: FOLIC ACID 1 MG TAB PEG/G-TUBE SCH (09:05)
[2020-04-15] MEDS: ASPIRIN 81 MG PEG/G-TUBE SCH (09:05)
[2020-04-15] MEDS: QUEtiapine 50 MG TAB PEG/G-TUBE SCH ×3 (09:05→21:03)
[2020-04-15] MEDS: THIAMINE 100 MG TAB PEG/G-TUBE SCH (09:05)
[2020-04-15] MEDS: amLODIPine 10 MG TAB PEG/G-TUBE SCH (09:05)
[2020-04-15] MEDS: PROPRANOLOL 20 MG TAB PEG/G-TUBE SCH (09:07)
[2020-04-15 13:43] LABS: Basophils # (A) 0.1 k/uL (0-0.2); Basophils % (A) 1 %; Eosinophils # (A) 0.4 k/uL (0-0.7); Eosinophils % (A) 4 %; HCT 40.1 % (39.0-53.0); HGB 13.7 gm/dL (13.0-17.5); Lymphocytes # (A) 1.7 k/uL (1.0-4.8); Lymphocytes % (A) 18 %; MCH 36.1 pg (25.0-35.0); MCHC 34.2 g/dL (31.0-37.0); MCV 105.7 fL (80.0-100.0); Macrocytosis Slight; Mean Platelet Volume 8.1; Monocytes # (A) 0.5 k/uL (0-1.0); Monocytes % (A) 6 %; Neutrophils # (A) 6.8 k/uL (1.3-7.7); Neutrophils % (A) 70 %; Platelet Count 230 k/uL (150-450); RDW 13.2 % (11.5-15.5); WBC 9.7 k/uL (3.8-10.6)
--- NOTE | 2020-04-15 16:03 | HP ---
HISTORY AND PHYSICAL CHIEF COMPLAINT: Encephalopathy, fall, leukocytosis, and hematuria. HISTORY OF PRESENT ILLNESS: This is another admission for this 64-year-old white male. He was recently admitted with sudden onset of dementia and delirium with a history of a previous CVA, hypertension, diabetes. At that time he was seen by neurology. Even though it was more probable that he had a low-pressure hydrocephalus, Neurology wanted him transferred to [facility]. He was treated there conservatively and eventually was discharged to rehab. He did not have high pressure hydrocephalus. He was returned to [facility] at a care home when he abruptly fell and was sent to the emergency room. It is not clear why he was sent. He did not have any injury. When he got to the emergency room, he was found to have an unexplained white count of around 19,000 with hematuria, which may have been from a previously indwelling catheter. He did not apparently have a seizure or hit his head and he had no other reported signs or symptoms of difficulty. REVIEW OF SYSTEMS: He cannot answer appropriately. Past medical history, family history and personal and social histories are either not obtainable or unchanged. PHYSICAL EXAMINATION: Blood pressure is 142/83 with a pulse of 89, respirations of 27. He is afebrile. In general, he appeared to be well developed, well nourished, in no acute distress. He was awake and alert, but he was difficult to communicate with. He is very hard of hearing and due to his dementia he is not appropriate. Head, ears, eyes, nose, mouth, and throat seemed to be normal. Carotids were normal. Chest demonstrated scattered rales, but was otherwise clear. The cardiac exam was normal sinus rhythm. The abdomen was soft and nontender. There was a feeding tube. Extremities were normal. Neurologically he had no focal deficits, but he was confused. IMPRESSION: 1. Fall, etiology unknown. 2. Leukocytosis, etiology unknown. 3. Hematuria. 4. Low-pressure hydrocephalus. 5. Dementia. 6. Delirium. 7. History of chronic obstructive pulmonary disease. 8. History of hypertension. PLAN: 1. Bed rest. 2. IV fluids. 3. Monitor his vital signs and neurologic status. MMODL / IJN: [id number] /
--- NOTE | 2020-04-15 16:06 | PN ---
PROGRESS NOTE CHIEF COMPLAINT: Fall with dementia, leukocytosis and hematuria. HISTORY OF PRESENT ILLNESS: This gentleman seems to be doing fairly well. He is awake and alert. He has had no other difficulties neurologically or with his vital signs. A catheter was placed and his urine is quite clear. REVIEW OF SYSTEMS: He cannot answer questions appropriately. PHYSICAL EXAMINATION: His color is good. Vital signs are normal. Chest is clear. Cardiac exam is normal. Abdomen is soft, nontender. IMPRESSION: 1. Fall. 2. Encephalopathy due to low-pressure hydrocephalus. 3. History of hypertension. 4. History of chronic obstructive pulmonary disease. PLAN: 1. Continue to monitor his urine for any further evidence of bleeding. 2. Follow his white blood cell count. 3. Physical therapy as well as occupational therapy and speech therapy. MMODL / IJN: [id number] /
--- NOTE | 2020-04-15 16:50 | XR ---
EXAMINATION TYPE: XR chest 2V DATE OF EXAM: 04/15/2020 COMPARISON: 04/14/2020 HISTORY: Cough TECHNIQUE: FINDINGS: Heart is normal. Lungs are clear of infiltrate. There is no heart failure. There are no hil ar masses. There is slight anterior wedging of mid thoracic vertebra with osteopenia. The pulmonary v ascularity is normal. IMPRESSION: No active cardiopulmonary disease. No change.
[2020-04-15 17:29] LABS: African American GFR (CKD) 90.5 (60.0-200.0); Albumin 3.1 g/dL (3.80-4.90); Albumin/Globulin Ratio 1.19 (1.60-3.17); Anion Gap 5.4 mmol/L (4.00-12.00); Calcium 8.4 mg/dL (8.7-10.3); Carbon Dioxide 28.6 mmol/L (21.6-31.8); Globulin 2.6 g/dL (1.6-3.3); Non-African American GFR(CKD) 78.1 (60.0-200.0); Potassium 4.8 mmol/L (3.5-5.5); Total Bilirubin 0.4 mg/dL (0.2-1.2); Total Protein 5.7 g/dL (6.2-8.2)
[2020-04-15] MEDS: ATORVASTATIN 10 MG TAB PEG/G-TUBE SCH (21:03)
[2020-04-16] MEDS: THIAMINE 100 MG TAB PEG/G-TUBE SCH ×2 (09:39→17:40)
[2020-04-16] MEDS: ASPIRIN 81 MG PEG/G-TUBE SCH (09:39)
[2020-04-16] MEDS: amLODIPine 10 MG TAB PEG/G-TUBE SCH (09:39)
[2020-04-16] MEDS: QUEtiapine 50 MG TAB PEG/G-TUBE SCH ×3 (09:39→22:48)
[2020-04-16] MEDS: FOLIC ACID 1 MG TAB PEG/G-TUBE SCH (09:40)
[2020-04-16] MEDS: PROPRANOLOL 20 MG TAB PEG/G-TUBE SCH (09:40)
--- NOTE | 2020-04-16 11:57 | PN ---
PROGRESS NOTE CHIEF COMPLAINT: Fall with hematuria, leukocytosis, encephalopathy. HISTORY OF PRESENT ILLNESS: This gentleman is stable at this time. Quinones catheter is in and there is no blood. He has had no other neurologic issues. His white count was high, but, now it is down significantly. LABORATORY STUDIES: His white count is down to 5600 with a hemoglobin of 8.4. BUN is 85, creatinine 1.9. His ammonia is slightly elevated. PHYSICAL EXAMINATION: He is awake and alert, but is confused, which is normal for him. Chest is clear. Cardiac exam is normal. Abdomen is soft, nontender. IMPRESSION: 1. Fall. 2. Leukocytosis. 3. Encephalopathy. 4. Vascular dementia with low-pressure hydrocephalus. 5. Hematuria. 6. Renal failure. PLAN: At this point, he could probably go back to the senior living tomorrow. MMROBERT / ROSELINEN: [id number] /
[2020-04-16] MEDS: ATORVASTATIN 10 MG TAB PEG/G-TUBE SCH (21:05)
[2020-04-17] MEDS: ASPIRIN 81 MG PEG/G-TUBE SCH (08:37)
[2020-04-17] MEDS: THIAMINE 100 MG TAB PEG/G-TUBE SCH (08:37)
[2020-04-17] MEDS: PROPRANOLOL 20 MG TAB PEG/G-TUBE SCH (08:38)
[2020-04-17] MEDS: FOLIC ACID 1 MG TAB PEG/G-TUBE SCH (08:38)
[2020-04-17] MEDS: amLODIPine 10 MG TAB PEG/G-TUBE SCH (08:38)
[2020-04-17] MEDS: QUEtiapine 50 MG TAB PEG/G-TUBE SCH ×3 (08:38→22:25)
--- NOTE | 2020-04-17 12:01 | DS ---
DISCHARGE SUMMARY CHIEF COMPLAINT: Syncope, leukocytosis, and hematuria. HISTORY OF PRESENT ILLNESS AND PHYSICAL EXAMINATION: Details of this man's history and physical can be found in the initial workup. LABORATORY STUDIES: While he was in a hospital he had laboratory studies, details of which can be found in the laboratory section of his chart. COURSE IN THE HOSPITAL: After admission he was placed on bedrest and he had no signs or symptoms related to trauma. He had no syncope and he had no development of focal neurologic deficits. He did demonstrate his profound dementia which has been going on for some time. In the hospital, hematuria cleared after catheter was inserted. White blood count came down to normal. He was stabilizing and doing well and it was felt [facility] and he will go back on his usual diet, activity, medication. Quinones catheter will be removed before discharge. FINAL DIAGNOSES: 1. Fall without trauma. 2. Vascular encephalopathy with low-pressure hydrocephalus. 3. History of hypertension. 4. History of COPD. 5. Hematuria, likely due to trauma. OPERATIONS: None. CONSULTATION: None. He is improved. MMODL / IJN: [id number] /
[2020-04-17] MEDS: ATORVASTATIN 10 MG TAB PEG/G-TUBE SCH (22:25)
[2020-04-18] MEDS: FOLIC ACID 1 MG TAB PEG/G-TUBE SCH (09:43)
[2020-04-18] MEDS: QUEtiapine 50 MG TAB PEG/G-TUBE SCH (09:43)
[2020-04-18] MEDS: amLODIPine 10 MG TAB PEG/G-TUBE SCH (09:44)
[2020-04-18] MEDS: THIAMINE 100 MG TAB PEG/G-TUBE SCH (09:44)
[2020-04-18] MEDS: ASPIRIN 81 MG PEG/G-TUBE SCH (09:44)
[2020-04-18] MEDS: PROPRANOLOL 20 MG TAB PEG/G-TUBE SCH (09:44)
[2020-04-18 12:36] VITALS: BP 127/77; PULSE 69; RESP 16; TEMP 98
[2020-04-18 13:31] VITALS: BMI 33.6
--- NOTE | 2020-04-19 13:49 | CDI ---
Documentation Clarification Form Date: 04/19/20 From: Eloisa Quiñonez CCS Phone: If you have a question about this query, please contact Carleen Hess, Production Proofreader at [phone] between 8am and 5pm. Admit Date: 04/17/20 Discharge Date:04/18/20 Patient Name: Jewel Mcintosh Visit Number: [id number] ATTENTION: The Clinical Documentation Specialists (CDI) and [facility] Coding Staff appreciate your assistance in clarifying documentation. Please respond to the clarification below the line at the bottom and electronically sign. The CDI & [facility] Coding staff will review the response and follow-up if needed. Please note: Queries are made part of the Legal Health Record. If you have any questions, please contact the author of this message via ITS. Dear Dr. Sosa, Renal failure was documented in the 04/16 Progress Note. History/Risk Factors: Hydrocephalus, Dementia, Hematuria, HTN, DM, COPD, Tobacco, Elevated WBC, PEG/ TF Clinical Indicators: Renal failure, Hematuria Current BUN/Cr/GFR: BUN 36, 32- Cr 1.12, 1.0- GFR 68, 78 Treatment: Monitor IVF: 500 ml IV 999 mls/hr In order to capture the severity of condition, please clarify if the condition signifies: Acute renal failure, Please specify etiology (if known): Acute kidney injury Acute on chronic renal failure CKD Stage 1 GFR >90 CKD Stage 2 GFR 60-89 CKD Stage 3 GFR 30-59 CKD Stage 4 GFR 15-29 CKD Stage 5 GFR <15 Chronic renal failure/Chronic Kidney disease (CKD) please stage (if known): CKD Stage 1 GFR >90 CKD Stage 2 GFR 60-89 CKD Stage 3 GFR 30-59 CKD Stage 4 GFR 15-29 CKD Stage 5 GFR <15 Other, please specify Unable to determine MTDD
--- NOTE | 2020-04-19 19:32 | PN ---
PROGRESS NOTE DATE OF SERVICE: 04/18/2020 CHIEF COMPLAINT: Fall with delirium and vascular dementia. HISTORY OF PRESENT ILLNESS: This gentleman is stable and is awaiting return to the custodial. PHYSICAL EXAMINATION: Her chest is clear. Cardiac exam is normal. Abdomen is soft, nontender. Extremities are normal. He is awake and alert. He is being fed through the PEG tube. IMPRESSION: 1. Vascular or ischemic encephalopathy with low-pressure hydrocephalus. 2. History of hypertension. 3. History of chronic obstructive pulmonary disease. PLAN: He awaits return to the custodial. MMODL / IJN: [id number] /
--- NOTE | 2020-04-25 20:57 | MISC ---
MISCELLANOUS REPORT Stage II CKD, chronic only. MMODL / IJN: [id number] /
== END 2020-04-18 14:01 | DRG 696 ==
LOC: EC 08:49 → 6NMEDSUR 11:27 → OBSVTOIN 04-17 07:27
PROVIDERS: ADMIT Family Medicine; ATTEND Family Medicine
PROC: 3E0G76Z Introduction of Nutritional Substance into Upper GI, Via Natural or Artificial Opening (ICD-10-PCS; principal; 2020-04-15)
DX: R31.9 Hematuria, unspecified (principal); Z43.1 Encounter for attention to gastrostomy; G91.2 (Idiopathic) normal pressure hydrocephalus; G93.49 Other encephalopathy; F01.50 Vascular dementia, unspecified severity, without behavioral disturbance, psychotic disturbance, mood disturbance, and anxiety; E11.9 Type 2 diabetes mellitus without complications; J44.9 Chronic obstructive pulmonary disease, unspecified; N18.2 Chronic kidney disease, stage 2 (mild); I10 Essential (primary) hypertension; R32 Unspecified urinary incontinence; D72.829 Elevated white blood cell count, unspecified; H91.90 Unspecified hearing loss, unspecified ear; F17.210 Nicotine dependence, cigarettes, uncomplicated; Z79.82 Long term (current) use of aspirin; Z79.899 Other long term (current) drug therapy; Z71.3 Dietary counseling and surveillance; Z86.73 Personal history of transient ischemic attack (TIA), and cerebral infarction without residual deficits; Z90.49 Acquired absence of other specified parts of digestive tract; Z87.19 Personal history of other diseases of the digestive system; Z98.890 Other specified postprocedural states; W19.XXXA Unspecified fall, initial encounter; Z82.49 Family history of ischemic heart disease and other diseases of the circulatory system; Z82.0 Family history of epilepsy and other diseases of the nervous system; Z80.1 Family history of malignant neoplasm of trachea, bronchus and lung
CPT/HCPCS: 36415; 70450; 71046; 72125; 80053; 80306; 81001; 84484; 85025; 85610; 85730; 93005; 96360; 96361; 99285

== ENCOUNTER 2020-04-19 11:33 | Emergency (ER) | payer MEDICARE ==
[2020-04-19 11:45] VITALS: RESP 20; TEMP 98.1
[2020-04-19 13:05] LABS: Appearance,Urine Cloudy (Clear); Bacteria,Urine Occasional /hpf; Bilirubin,Urine Negative (Negative); Blood,Urine Moderate (Negative); Color,Urine Yellow; Glucose,Urine (UA) Negative (Negative); Ketones,Urine Negative (Negative); Leukocyte Esterase,Urine Large (Negative); Mucus,Urine Occasional /hpf; Nitrite,Urine Positive (Negative); PH, Urine 6.5 (5.0-8.0); Protein,Urine Negative (Negative); RBC,Urine 29 /hpf (0-5); Specific Gravity,Urine 1.016 (1.001-1.035); Urobilinogen,Urine <2.0 mg/dL (<2.0); WBC,Urine 113 /hpf (0-5)
[2020-04-19] MEDS ORDERED: cefTRIAXone IN SWFI 1,000 MG/10 ML SYRINGE IVP STA (13:09)
--- NOTE | 2020-04-19 13:11 | ED ---
Male Urogenital HPI - General Chief complaint: Urogenital Stated complaint: urinary retention Time Seen by Provider: 04/19/20 11:37 Source: EMS Mode of arrival: EMS Limitations: altered mental status - History of Present Illness Initial comments: 64yo male with dementia, previous CVA currently residing at extended care facility presenting for urinary retention. Nursing staff, except for the catheter was removed yesterday. They state that this morning patient had 900 mL of urine in his bladder was unable to urinate. Nursing staff called EMS to transfer patient to the hospital for further evaluation and treatment. Otherwise denied noting any other abnormal behavior or concerns. Patient on arrival is pleasant, states he is not sure why he is here. History mostly obtained from nursing facility/ems. - Related Data Home Medications Medication Instructions Recorded Confirmed Acetaminophen [Tylenol 8 Hour] 650 mg PEG/G-TUBE TID PRN 04/14/20 04/14/20 Aspirin [[place] Aspirin EC] 81 mg PEG/G-TUBE DAILY 04/14/20 04/14/20 Atorvastatin [Lipitor] 10 mg PEG/G-TUBE HS 04/14/20 04/14/20 Folic Acid 0.4 mg PEG/G-TUBE DAILY 04/14/20 04/14/20 Ipratropium-Albuterol Nebulize 3 ml INHALATION RT-Q4H PRN 04/14/20 04/14/20 [Duoneb 0.5 mg-3 mg/3 ml Soln] Jevity 1.5 Damián Liquid 1.5 box PEG/G-TUBE BID 04/14/20 04/14/20 Ondansetron HCl [Zofran] 4 mg PEG/G-TUBE Q6H PRN 04/14/20 04/14/20 Propranolol HCl 60 mg PEG/G-TUBE DAILY 04/14/20 04/14/20 QUEtiapine [SEROquel] 50 mg PEG/G-TUBE TID 04/14/20 04/14/20 Thiamine HCl [Vitamin B-1] 300 mg PEG/G-TUBE DAILY 04/14/20 04/14/20 amLODIPine [Norvasc] 10 mg PEG/G-TUBE DAILY 04/14/20 04/14/20 Previous Rx's Medication Instructions Recorded Cephalexin [Keflex] 500 mg PO Q6HR 7 Days #28 cap 04/19/20 Allergies Allergy/AdvReac Type Severity Reaction Status Date / Time No Known Allergies Allergy Verified 03/22/20 11:05 Review of Systems ROS Statement: Those systems with pertinent positive or pertinent negative responses have been documented in the HPI. ROS Other: All systems not noted in ROS Statement are negative. Past Medical History Past Medical History: CVA/TIA, Hearing Disorder / Deafness, Hyperlipidemia, Hypertension, Prostate Disorder Additional Past Medical History / Comment(s): Pt recently admitted to [facility] on 03/23/20 with dicharge diagnosis of: AMS changes/ischemic encephalopathy/vascular dementia/CPD/ASHD/presbycusis. He had a LP performed and was transferred to [facility]. Discharge diagnosis from [facility] list: severe generalized intracranial leukoencephalopathy/cerebral ventriculomegaly/cerebral atrophy/neurogenic dysphagia/UTI/urinary retention/constipation/suspected dysautonomally, acute encephalopathy. [facility] states they were also told uncontrolled HTN/hydrocephalus/advance dementia/uti. Other hx: 2013 CVA without residual, [place] SUR bilaterally/speak in R ear, occasional urinary incontinence/frequency, CKD, nephrolithiasis, BPH, occasional back pain. History of Any Multi-Drug Resistant Organisms: None Reported Past Surgical History: Appendectomy Additional Past Surgical History / Comment(s): colonoscopy Past Anesthesia/Blood Transfusion Reactions: No Reported Reaction Past Psychological History: No Psychological Hx Reported Smoking Status: Former smoker Past Alcohol Use History: None Reported Past Drug Use History: None Reported - Past Family History Mother Family Medical History: Dementia, Hypertension Father Family Medical History: Cancer Additional Family Medical History / Comment(s): Lung cancer. Father was a smoker. General Exam - General Exam Comments Initial Comments: General: The patient is awake and alert, in no distress Eye: Pupils are equal, round and reactive to light, extra-ocular movements are intact. No nystagmus. There is normal conjunctiva bilaterally. No signs of icterus. Ears, nose, mouth and throat: There are moist mucous membranes and no oral lesions. Neck: The neck is supple, there is no tenderness or JVD. Cardiovascular: There is a regular rate and rhythm. No murmur, rub or gallop is appreciated. Respiratory: Lungs are clear to auscultation, respirations are non-labored, breath sounds are equal. No wheezes, stridor, rales, or rhonchi. Gastrointestinal: Soft, non-distended, non-tender abdomen without masses or organomegaly noted. There is no rebound or guarding present. Musculoskeletal: Normal ROM, no tenderness. Strength 5/5. Sensation intact. Radial pulses equal bilaterally 2+. Neurological: A&O x 1. CN II-XII intact, There are no obvious motor or sensory deficits. Coordination appears grossly intact. Speech is normal. Skin: Skin is warm and dry and no rashes or lesions are noted. Psychiatric: Cooperative Limitations: altered mental status Course Vital Signs 04/19/20 04/19/20 11:42 13:25 Temperature 98.1 F Pulse Rate 111 H 107 H Respiratory 20 20 Rate Blood Pressure 140/109 132/92 O2 Sat by Pulse 96 95 Oximetry Medical Decision Making - Medical Decision Making Quinones placed. UA concerning for infection. ABx initiated. Recommended urology f/u. Patient discharged apppearing well after discussing case with Dr. Monique - Lab Data Lab Results 04/19/20 Range/Units 11:56 Urine Color Yellow Urine Appearance Cloudy (Clear) Urine pH 6.5 (5.0-8.0) Ur Specific [place] 1.016 (1.001-1.035) Urine Protein Negative (Negative) Urine Glucose (UA) Negative (Negative) Urine Ketones Negative (Negative) Urine Blood Moderate H (Negative) Urine Nitrite Positive (Negative) Urine Bilirubin Negative (Negative) Urine Urobilinogen <2.0 (<2.0) mg/dL Ur Leukocyte Esterase Large H (Negative) Urine RBC 29 H (0-5) /hpf Urine WBC 113 H (0-5) /hpf Urine WBC Clumps Few H (None) /hpf Urine Bacteria Occasional H (None) /hpf Urine Mucus Occasional H (None) /hpf Disposition Clinical Impression: Urinary retention Disposition: HOME SELF-CARE Condition: Good Instructions (If sedation given, give patient instructions): Urinary Tract Infection in Men (ED) Additional Instructions: Please use medication as discussed. Please follow-up with family doctor in the next 2 days. Please return to emergency room if the symptoms increase or worsen or for any other concerns. Prescriptions: Cephalexin [Keflex] 500 mg PO Q6HR 7 Days #28 cap Is patient prescribed a controlled substance at d/c from ED?: No Referrals: Khanh Sosa MD [Primary Care Provider] - 1-2 days Time of Disposition: 13:11
[2020-04-19 13:26] VITALS: BP 132/92; PULSE 107
== END 2020-04-19 14:08 | disposition home or self-care (01) ==
LOC: EC 11:33
DX: R33.9 Retention of urine, unspecified (principal); E78.5 Hyperlipidemia, unspecified; N40.0 Benign prostatic hyperplasia without lower urinary tract symptoms; I25.10 Atherosclerotic heart disease of native coronary artery without angina pectoris; I12.9 Hypertensive chronic kidney disease with stage 1 through stage 4 chronic kidney disease, or unspecified chronic kidney disease; N18.9 Chronic kidney disease, unspecified; Z79.82 Long term (current) use of aspirin; Z79.899 Other long term (current) drug therapy; Z87.891 Personal history of nicotine dependence; Z86.73 Personal history of transient ischemic attack (TIA), and cerebral infarction without residual deficits
CPT/HCPCS: 99283; 96374; 51702; 81001; 87086; J0696; 87077; 87186

== ENCOUNTER 2020-04-27 16:45 | Emergency (ER) | payer MEDICARE ==
[2020-04-27 16:53] VITALS: RESP 18
--- NOTE | 2020-04-27 18:02 | ED ---
General Adult HPI - General Chief complaint: Recheck/Abnormal Lab/Rx Stated complaint: Dislodged Peg Tube Source: patient, family, EMS, RN notes reviewed, old records reviewed Mode of arrival: EMS Limitations: altered mental status, physical limitation - History of Present Illness Initial comments: 64 to male presenting with malfunctioning PEG tube. [facility], he is very hard of hearing, according to EMS patient's PEG tube was unable to be flushed. No reported fever. No pain complaints. Patient self has no complaints. - Related Data Home Medications Medication Instructions Recorded Confirmed Acetaminophen [Tylenol 8 Hour] 650 mg PEG/G-TUBE TID PRN 04/14/20 04/14/20 Aspirin [[place] Aspirin EC] 81 mg PEG/G-TUBE DAILY 04/14/20 04/14/20 Atorvastatin [Lipitor] 10 mg PEG/G-TUBE HS 04/14/20 04/14/20 Folic Acid 0.4 mg PEG/G-TUBE DAILY 04/14/20 04/14/20 Ipratropium-Albuterol Nebulize 3 ml INHALATION RT-Q4H PRN 04/14/20 04/14/20 [Duoneb 0.5 mg-3 mg/3 ml Soln] Jevity 1.5 Damián Liquid 1.5 box PEG/G-TUBE BID 04/14/20 04/14/20 Ondansetron HCl [Zofran] 4 mg PEG/G-TUBE Q6H PRN 04/14/20 04/14/20 Propranolol HCl 60 mg PEG/G-TUBE DAILY 04/14/20 04/14/20 QUEtiapine [SEROquel] 50 mg PEG/G-TUBE TID 04/14/20 04/14/20 Thiamine HCl [Vitamin B-1] 300 mg PEG/G-TUBE DAILY 04/14/20 04/14/20 amLODIPine [Norvasc] 10 mg PEG/G-TUBE DAILY 04/14/20 04/14/20 Previous Rx's Medication Instructions Recorded Cephalexin [Keflex] 500 mg PO Q6HR 7 Days #28 cap 04/19/20 Allergies Allergy/AdvReac Type Severity Reaction Status Date / Time No Known Allergies Allergy Verified 04/27/20 16:54 Review of Systems ROS Statement: Those systems with pertinent positive or pertinent negative responses have been documented in the HPI. ROS Other: All systems not noted in ROS Statement are negative. Past Medical History Past Medical History: CVA/TIA, Hearing Disorder / Deafness, Hyperlipidemia, Hypertension, Prostate Disorder Additional Past Medical History / Comment(s): Pt recently admitted to [facility] on 03/23/20 with dicharge diagnosis of: AMS changes/ischemic encephalopathy/vascular dementia/CPD/ASHD/presbycusis. He had a LP performed and was transferred to [facility]. Discharge diagnosis from [facility] list: severe generalized intracranial leukoencephalopathy/cerebral ventriculomegaly/cerebral atrophy/neurogenic dysphagia/UTI/urinary retention/constipation/suspected dysautonomally, acute encephalopathy. [facility] states they were also told uncontrolled HTN/hydrocephalus/advance dementia/uti. Other hx: 2013 CVA without residual, VIEJAS bilaterally/speak in R ear, occasional urinary incontinence/frequency, CKD, nephrolithiasis, BPH, occasional back pain. History of Any Multi-Drug Resistant Organisms: None Reported Past Surgical History: Appendectomy Additional Past Surgical History / Comment(s): colonoscopy Past Anesthesia/Blood Transfusion Reactions: No Reported Reaction Past Psychological History: No Psychological Hx Reported Smoking Status: Former smoker Past Alcohol Use History: None Reported Past Drug Use History: None Reported - Past Family History Mother Family Medical History: Dementia, Hypertension Father Family Medical History: Cancer Additional Family Medical History / Comment(s): Lung cancer. Father was a smoker. General Exam Limitations: altered mental status, physical limitation General appearance: alert, in no apparent distress Head exam: Present: atraumatic, normocephalic Eye exam: Present: normal appearance, PERRL ENT exam: Present: normal exam Neck exam: Present: normal inspection. Absent: tenderness, meningismus Respiratory exam: Present: normal lung sounds bilaterally. Absent: respiratory distress, wheezes Cardiovascular Exam: Present: regular rate, normal rhythm GI/Abdominal exam: Present: soft, other (Active has very mild circumferential erythema less than half a centimeter, no purulence. PEG tube appears in good position.). Absent: distended, tenderness, rebound, rigid Course Vital Signs 04/27/20 16:51 Temperature 99.1 F Pulse Rate 80 Respiratory 18 Rate Blood Pressure 156/92 O2 Sat by Pulse 97 Oximetry Medical Decision Making - Medical Decision Making 64 to male with nonfunctioning PEG tube. Multiple attempts are made to flush this PEG tube including warm water administration as well as soda. Ultimately PEG tube is unable to be flushed. PEG tube removed and found to have concretion. PEG tube is replaced with a 14-Bulgarian PRASHANTH tube. X-ray with contrast is obtained which shows no extravasation of contrast outside of the stomach. [facility]. Disposition Clinical Impression: PEG tube malfunction Disposition: HOME SELF-CARE Condition: Fair Instructions (If sedation given, give patient instructions): PEG Tube Insertion (DC), How to Use and Care for Your PEG Tube (ED) Is patient prescribed a controlled substance at d/c from ED?: No Referrals: Khanh Sosa MD [Primary Care Provider] - 1-2 days Time of Disposition: 18:34
--- NOTE | 2020-04-27 19:11 | XR ---
EXAMINATION TYPE: XR KUB single supine view DATE OF EXAM: 04/27/2020 6:48 PM CLINICAL HISTORY: NG tube placement TECHNIQUE: Single supine KUB image of the abdomen is obtained following 50 mL [id number]-370 G-tube injec tion. COMPARISON: None. FINDINGS: The contrast material opacifies the gastric tube and pools within the gastric fundus, with subtle partial opacification of the gastric body and antrum. There is no extraluminal contrast eviden t. Scattered gas is seen in non-distended small bowel loops. Gas and fecal material is seen in non-diste nded colon. There is no visceromegaly, pneumoperitoneum, or abnormal calcification appreciated. No acute skeletal findings. The visualized lung bases and pleural spaces are negative for acute findings. IMPRESSION: NEGATIVE EXAMINATION.
[2020-04-27 22:24] VITALS: BP 119/89; PULSE 98; TEMP 98
== END 2020-04-27 20:50 | disposition home or self-care (01) ==
LOC: EC 16:45
DX: K94.23 Gastrostomy malfunction (principal); S40.211A Abrasion of right shoulder, initial encounter; I12.9 Hypertensive chronic kidney disease with stage 1 through stage 4 chronic kidney disease, or unspecified chronic kidney disease; N18.9 Chronic kidney disease, unspecified; E78.5 Hyperlipidemia, unspecified; H91.93 Unspecified hearing loss, bilateral; Z79.899 Other long term (current) drug therapy; Z79.82 Long term (current) use of aspirin; Z86.73 Personal history of transient ischemic attack (TIA), and cerebral infarction without residual deficits; Z87.891 Personal history of nicotine dependence; W19.XXXA Unspecified fall, initial encounter
CPT/HCPCS: 74018; 99284; 43762; Q9967

== ENCOUNTER 2020-06-14 12:57 | Emergency (ER) | payer MEDICARE ==
[2020-06-14] MEDS ORDERED: LIDOCAINE URO-JET JELLY 2% 5 ML KIT URETHRAL ONE (13:23)
[2020-06-14 13:25] VITALS: PULSE 72; TEMP 98.9
--- NOTE | 2020-06-14 14:17 | ED ---
General Adult HPI - General Source: EMS, RN notes reviewed, old records reviewed Mode of arrival: EMS Limitations: no limitations <Jeanette Gagnon - Last Filed: 06/14/20 14:41> <Monique Boone - Last Filed: 06/19/20 19:07> - General Chief complaint: Recheck/Abnormal Lab/Rx Stated complaint: PEG tube problems Time Seen by Provider: 06/14/20 13:14 - History of Present Illness Initial comments: Patient 65-year-old male presents emergency department today from [facility] . Patient has a known diagnosis of COVID. He presents today for malfunctioning PEG tube. He reports that he had have this replaced a few months ago as it became blocked. senior living and attempted to unblock it with cola but was unsuccessful. Pt denies pain. (Jeanetet Gagnon) - Related Data Home Medications Medication Instructions Recorded Confirmed Atorvastatin [Lipitor] 10 mg PEG/G-TUBE HS 04/14/20 06/14/20 Folic Acid 0.4 mg PEG/G-TUBE DAILY 04/14/20 06/14/20 Ipratropium-Albuterol Nebulize 3 ml INHALATION RT-Q4H PRN 04/14/20 06/14/20 [Duoneb 0.5 mg-3 mg/3 ml Soln] Ondansetron HCl [Zofran] 4 mg PEG/G-TUBE Q6H PRN 04/14/20 06/14/20 Propranolol HCl 60 mg PEG/G-TUBE DAILY 04/14/20 06/14/20 QUEtiapine [SEROquel] 75 mg PEG/G-TUBE TID 04/14/20 06/14/20 Thiamine HCl [Vitamin B-1] 300 mg PEG/G-TUBE DAILY 04/14/20 06/14/20 amLODIPine [Norvasc] 10 mg PEG/G-TUBE DAILY 04/14/20 06/14/20 Acetaminophen Tab [Tylenol] 650 mg PEG/G-TUBE Q8H PRN 06/14/20 06/14/20 Aspirin 81 mg PEG/G-TUBE DAILY 06/14/20 06/14/20 Osmolite 1.5 1 dose PEG/G-TUBE QID@02,14,18,22 06/14/20 06/14/20 Z-Guard 1 applic TOPICAL BID 06/14/20 Allergies Allergy/AdvReac Type Severity Reaction Status Date / Time No Known Allergies Allergy Verified 06/14/20 13:52 Review of Systems ROS Other: All systems not noted in ROS Statement are negative. <Jeanette Gagnon - Last Filed: 06/14/20 14:41> ROS Other: All systems not noted in ROS Statement are negative. <DanielcleveMonique Josephine - Last Filed: 06/19/20 19:07> ROS Statement: Those systems with pertinent positive or pertinent negative responses have been documented in the HPI. Past Medical History Past Medical History: CVA/TIA, Hearing Disorder / Deafness, Hyperlipidemia, Hypertension, Prostate Disorder Additional Past Medical History / Comment(s): Pt recently admitted to [facility] on 03/23/20 with dicharge diagnosis of: AMS changes/ischemic encephalopathy/vascular dementia/CPD/ASHD/presbycusis. He had a LP performed and was transferred to [facility]. Discharge diagnosis from 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 [facility] states they were also told uncontrolled HTN/hydrocephalus/advance dementia/uti. 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 History of Any Multi-Drug Resistant Organisms: None Reported Past Surgical History: Appendectomy Additional Past Surgical History / Comment(s): colonoscopy Past Anesthesia/Blood Transfusion Reactions: No Reported Reaction Past Psychological History: No Psychological Hx Reported Smoking Status: Former smoker Past Alcohol Use History: None Reported Past Drug Use History: None Reported - Past Family History Mother Family Medical History: Dementia, Hypertension Father Family Medical History: Cancer Additional Family Medical History / Comment(s): Lung cancer. Father was a smoker. <Jeanette Gagnon - Last Filed: 06/14/20 14:41> General Exam Limitations: no limitations General appearance: alert, in no apparent distress Head exam: Present: atraumatic, normocephalic, normal inspection Eye exam: Present: normal appearance, PERRL, EOMI. Absent: scleral icterus, conjunctival injection, periorbital swelling ENT exam: Present: normal exam, mucous membranes moist Neck exam: Present: normal inspection. Absent: tenderness, meningismus, lymphadenopathy Respiratory exam: Present: normal lung sounds bilaterally. Absent: respiratory distress, wheezes, rales, rhonchi, stridor Cardiovascular Exam: Present: regular rate, normal rhythm, normal heart sounds. Absent: systolic murmur, diastolic murmur, rubs, gallop, clicks GI/Abdominal exam: Present: soft, normal bowel sounds, other (Patient has erythematous PEG tube site. The tube is obviously obstructed. Patient's PEG tube was removed without difficulty.). Absent: distended, tenderness, guarding, rebound, rigid Extremities exam: Present: normal inspection, full ROM, normal capillary refill. Absent: tenderness, pedal edema, joint swelling, calf tenderness Back exam: Present: normal inspection <Jeanette Gagnon - Last Filed: 06/14/20 14:41> - General Exam Comments Initial Comments: 65-year-old male. Alert and oriented. No distress. Patient is very hard of hearing. (Jeanette Gagnon) Course Vital Signs 06/14/20 06/14/20 13:20 16:27 Temperature 98.9 F Pulse Rate 72 Respiratory 20 18 Rate Blood Pressure 129/87 131/68 O2 Sat by Pulse 96 98 Oximetry Medical Decision Making - Radiology Data Radiology results: report reviewed <Jeanette Gagnon - Last Filed: 06/14/20 14:41> <Monique Boone - Last Filed: 06/19/20 19:07> - Medical Decision Making 65-year-old male presents for short stay for replacement for PEG tube. Patient resides at [facility] on the [place]. He has known diagnosis of: Covid, he Is not hypoxic. He otherwise appears well. He has had a few episodes of coughing. Patient has had this PEG tube in place for her years. He had 14-Sinhala PEG tube removed without difficulty and replaced with a new tube. Patient at this time had KUB showing no extravasation of contrast outside the stomach. Pt will be discharged back to [facility]. (Jeanette Gagnon) I was available for consultation in the emergency department. The history and physical exam were done by the midlevel provider. I was consulted for this patients care. I reviewed the case with the midlevel provider and based on their presentation of the patient, I agree with the assessment, medical decision making and plan of care as documented. Chart was dictated using [employer] dictation software. Attempts were made to correct any dictation errors however some typographical errors may persist. Patient was seen during a national state of emergency due to the Covid-19 pandemic. (Monique Boone) - Radiology Data X-ray does not show sensation of contrast signs symptoms. Patient's PEG tube is functioning well. (Jeanette Gagnon) Disposition Is patient prescribed a controlled substance at d/c from ED?: No Time of Disposition: 14:32 - Out of Hospital Transfer - Req. Specs Out of Hospital Transfer - Requested Specifics: Other Non-Acute ([facility] the [place]) <Jeanette Gagnon - Last Filed: 06/14/20 14:41> <Monique Boone - Last Filed: 06/19/20 19:07> Clinical Impression: PEG tube malfunction Disposition: DC/TRNS INTERMEDIATE CARE FAC Condition: Good Instructions (If sedation given, give patient instructions): How to Use and Care for Your PEG Tube (ED) Referrals: Khanh Sosa MD [Primary Care Provider] - 1-2 days
--- NOTE | 2020-06-14 15:01 | XR ---
EXAMINATION TYPE: XR KUB DATE OF EXAM: 06/14/2020 COMPARISON: 04/27/2020 INDICATION: PEG tube placement TECHNIQUE: Single view abdomen frontal projection FINDINGS: Contrast is within the stomach and duodenum and into the proximal most portion of the jejunum. There is a catheter present, balloon is not identified. This however does appear to be approximately 2.5 cm from the stomach. IMPRESSION: 1. Catheter is present on the left. Clear extension into the stomach however is not evident despite c ontrast being within the stomach and proximal duodenum and jejunum.
[2020-06-14 16:28] VITALS: BP 131/68; RESP 18
== END 2020-06-14 16:28 ==
LOC: EC 12:57
DX: K94.23 Gastrostomy malfunction (principal); U07.1 COVID-19; I12.9 Hypertensive chronic kidney disease with stage 1 through stage 4 chronic kidney disease, or unspecified chronic kidney disease; N18.9 Chronic kidney disease, unspecified; E78.5 Hyperlipidemia, unspecified; H91.93 Unspecified hearing loss, bilateral; Z79.899 Other long term (current) drug therapy; Z79.82 Long term (current) use of aspirin; Z86.73 Personal history of transient ischemic attack (TIA), and cerebral infarction without residual deficits; Z87.891 Personal history of nicotine dependence
CPT/HCPCS: 99285 ×2; 74018; Q9967

== ENCOUNTER 2020-06-25 08:25 | Emergency (ER) | payer MEDICARE ==
[2020-06-25 08:30] VITALS: RESP 16
--- NOTE | 2020-06-25 09:02 | ED ---
General Adult HPI - General Chief complaint: Recheck/Abnormal Lab/Rx Stated complaint: Peg tube blocked Time Seen by Provider: 06/25/20 08:26 Source: patient, RN notes reviewed, old records reviewed Mode of arrival: EMS Limitations: no limitations - History of Present Illness Initial comments: Patient is a 65-year-old male from [facility] care facility for complaints for blocked feeding tube. He's had this feeding tube placed for over a year and recently had have it replaced has month. Patient denies any pain or complaints at this time. - Related Data Home Medications Medication Instructions Recorded Confirmed Atorvastatin [Lipitor] 10 mg PEG/G-TUBE HS 04/14/20 06/14/20 Folic Acid 0.4 mg PEG/G-TUBE DAILY 04/14/20 06/14/20 Ipratropium-Albuterol Nebulize 3 ml INHALATION RT-Q4H PRN 04/14/20 06/14/20 [Duoneb 0.5 mg-3 mg/3 ml Soln] Ondansetron HCl [Zofran] 4 mg PEG/G-TUBE Q6H PRN 04/14/20 06/14/20 Propranolol HCl 60 mg PEG/G-TUBE DAILY 04/14/20 06/14/20 QUEtiapine [SEROquel] 75 mg PEG/G-TUBE TID 04/14/20 06/14/20 Thiamine HCl [Vitamin B-1] 300 mg PEG/G-TUBE DAILY 04/14/20 06/14/20 amLODIPine [Norvasc] 10 mg PEG/G-TUBE DAILY 04/14/20 06/14/20 Acetaminophen Tab [Tylenol] 650 mg PEG/G-TUBE Q8H PRN 06/14/20 06/14/20 Aspirin 81 mg PEG/G-TUBE DAILY 06/14/20 06/14/20 Osmolite 1.5 1 dose PEG/G-TUBE QID@02,14,18,22 06/14/20 06/14/20 Z-Guard 1 applic TOPICAL BID 06/14/20 Allergies Allergy/AdvReac Type Severity Reaction Status Date / Time No Known Allergies Allergy Verified 06/25/20 08:28 Review of Systems ROS Statement: Those systems with pertinent positive or pertinent negative responses have been documented in the HPI. ROS Other: All systems not noted in ROS Statement are negative. Past Medical History Past Medical History: CVA/TIA, Hearing Disorder / Deafness, Hyperlipidemia, Hypertension, Prostate Disorder Additional Past Medical History / Comment(s): Pt recently admitted to [facility] on 03/23/20 with dicharge diagnosis of: AMS changes/ischemic encephalopathy/vascular dementia/CPD/ASHD/presbycusis. He had a LP performed and was transferred to [facility]. Discharge diagnosis from [facility] list: severe generalized intracranial leukoencephalopathy/cerebral ventriculomegaly/cerebral atrophy/neurogenic dysphagia/UTI/urinary retention/constipation/suspected dysautonomally, acute encephalopathy. [facility] states they were also told uncontrolled HTN/hydrocephalus/advance dementia/uti. Other hx: 2013 CVA without residual, [place] bilaterally/speak in R ear, occasional urinary incontinence/frequency, CKD, nephrolithiasis, BPH, occasional back pain. History of Any Multi-Drug Resistant Organisms: None Reported Past Surgical History: Appendectomy Additional Past Surgical History / Comment(s): colonoscopy Past Anesthesia/Blood Transfusion Reactions: No Reported Reaction Past Psychological History: No Psychological Hx Reported Smoking Status: Former smoker Past Alcohol Use History: None Reported Past Drug Use History: None Reported - Past Family History Mother Family Medical History: Dementia, Hypertension Father Family Medical History: Cancer Additional Family Medical History / Comment(s): Lung cancer. Father was a smoker. General Exam - General Exam Comments Initial Comments: 65-year-old male. Alert and oriented 3. No distress. Limitations: no limitations General appearance: alert, in no apparent distress Head exam: Present: atraumatic, normocephalic, normal inspection Eye exam: Present: normal appearance, PERRL, EOMI. Absent: scleral icterus, conjunctival injection, periorbital swelling ENT exam: Present: normal exam, mucous membranes moist Neck exam: Present: normal inspection. Absent: tenderness, meningismus, lymphadenopathy Respiratory exam: Present: normal lung sounds bilaterally. Absent: respiratory distress, wheezes, rales, rhonchi, stridor Cardiovascular Exam: Present: regular rate, normal rhythm, normal heart sounds. Absent: systolic murmur, diastolic murmur, rubs, gallop, clicks GI/Abdominal exam: Present: soft, normal bowel sounds, other (Is minimal erythema surrounding PEG tube site. He is a 14-Moroccan PEG tube.). Absent: distended, tenderness, guarding, rebound, rigid Extremities exam: Present: normal inspection, full ROM, normal capillary refill. Absent: tenderness, pedal edema, joint swelling, calf tenderness Back exam: Present: normal inspection Neurological exam: Present: alert, oriented X3, CN II-XII intact Course Vital Signs 06/25/20 08:26 Temperature 98.2 F Pulse Rate 60 Respiratory 16 Rate Blood Pressure 143/80 O2 Sat by Pulse 96 Oximetry Procedures - Procedures Initial comment: Patient's PEG tube was replaced with another 14-Moroccan PEG tube. The original PEG tube was removed in 4 mL was removed from the catheter bag and Patient had no bleeding with removal.. No pain with replacement at this time and 4 mL of fluid was placed on the new catheter. Medical Decision Making - Medical Decision Making 65-year-old male presents for feeding tube replacement. He reports that is clogged. He's had this happen a few times in the past few months. Patient is a 14-Moroccan PEG tube. We did try to flush this initially however was continued to be blocked. Patient had replacement today with another 14-Moroccan PEG tube. This had minimal erythema around the PEG tube site but no significant severe induration or signs of cellulitis. Patient tolerated the procedure well. Patient's x-ray shows evidence of sigmoid appropriate placement of feeding tube. [facility] - Radiology Data Radiology results: report reviewed Appropriate placement of feeding tube noted. This is read by Dr. Estrada. Disposition Clinical Impression: PEG tube malfunction Disposition: HOME SELF-CARE Condition: Good Instructions (If sedation given, give patient instructions): PEG Tube Insertion (DC) Additional Instructions: Recommend following up with surgeon whom place the PEG tube, if continued malfunction and needing large size. Return to the emergency department if any alarming signs or symptoms occur. Is patient prescribed a controlled substance at d/c from ED?: No Referrals: Khanh Sosa MD [Primary Care Provider] - 1-2 days Time of Disposition: 09:12
--- NOTE | 2020-06-25 09:06 | XR ---
EXAMINATION TYPE: XR KUB DATE OF EXAM: 06/25/2020 COMPARISON: NONE HISTORY: gastrograffin feeding tube placement TECHNIQUE: Single supine KUB image of the abdomen is obtained quantitiy 35 ml Isovue 370 FINDINGS: Patient's feeding tube was injected. Contrast is seen within the stomach. There is no evidence for ex travasation. IMPRESSION: 1. Appropriate placement of feeding tube.
[2020-06-25 09:42] VITALS: BP 149/78; PULSE 89; TEMP 98
== END 2020-06-25 09:41 | disposition home or self-care (01) ==
LOC: EC 08:25
DX: K94.23 Gastrostomy malfunction (principal); E78.5 Hyperlipidemia, unspecified; I12.9 Hypertensive chronic kidney disease with stage 1 through stage 4 chronic kidney disease, or unspecified chronic kidney disease; Z79.899 Other long term (current) drug therapy; Z79.82 Long term (current) use of aspirin; Z86.73 Personal history of transient ischemic attack (TIA), and cerebral infarction without residual deficits; Z87.891 Personal history of nicotine dependence
CPT/HCPCS: 74018; 99284; 43762; Q9967

== ENCOUNTER 2020-06-26 10:10 | Emergency (ER) | payer MEDICARE ==
--- NOTE | 2020-06-26 11:04 | ED ---
General Adult HPI - General Chief complaint: Recheck/Abnormal Lab/Rx Stated complaint: PEG tube problem Time Seen by Provider: 06/26/20 10:28 Source: EMS Mode of arrival: EMS Limitations: physical limitation - History of Present Illness Initial comments: Dictation was produced using [employer] dictation software. please excuse any grammatical, word or spelling errors. This patient was cared for during a federal and state declared state of emergency secondary to Covid 19 Chief Complaint: 65-year-old male presents with clogged PEG tube History of Present Illness: And is a 65-year-old male he is brought in from [facility]. Patient's: Positive. Patient has a PEG tube. PEG tube was changed yesterday however got clogged again. Patient is a 14-Wallisian PEG tube. Staff sent him in for recurrent clogged PEG tube. They requested a larger PEG tube replaced. The ROS documented in this emergency department record has been reviewed and confirmed by me. Those systems with pertinent positive or negative responses have been documented in the HPI. All other systems are other negative and/or noncontributory. PHYSICAL EXAM: General Impression: Alert and oriented, not in acute distress HEENT: Normocephalic atraumatic, extra-ocular movements intact, pupils equal and reactive to light bilaterally, mucous membranes moist. Cardiovascular: Heart regular rate and rhythm Chest: Able to complete full sentences, no retractions, no tachypnea Abdomen: abdomen soft, non-tender, non-distended, no organomegaly, PEG tube in place Musculoskeletal: Pulses present and equal in all extremities, no peripheral edema Motor: no focal deficits noted Neurological: CN II-XII grossly intact, no focal motor or sensory deficits noted Skin: Intact with no visualized rashes ED course: 65-year-old male presents with clogged PEG tube. Vital signs upon arrival are within acceptable limits. PEG tube was placed with 16-Wallisian. X-ray shows good PEG tube placement. Patient discharged. - Related Data Home Medications Medication Instructions Recorded Confirmed Atorvastatin [Lipitor] 10 mg PEG/G-TUBE HS 04/14/20 06/14/20 Folic Acid 0.4 mg PEG/G-TUBE DAILY 04/14/20 06/14/20 Ipratropium-Albuterol Nebulize 3 ml INHALATION RT-Q4H PRN 04/14/20 06/14/20 [Duoneb 0.5 mg-3 mg/3 ml Soln] Ondansetron HCl [Zofran] 4 mg PEG/G-TUBE Q6H PRN 04/14/20 06/14/20 Propranolol HCl 60 mg PEG/G-TUBE DAILY 04/14/20 06/14/20 QUEtiapine [SEROquel] 75 mg PEG/G-TUBE TID 04/14/20 06/14/20 Thiamine HCl [Vitamin B-1] 300 mg PEG/G-TUBE DAILY 04/14/20 06/14/20 amLODIPine [Norvasc] 10 mg PEG/G-TUBE DAILY 04/14/20 06/14/20 Acetaminophen Tab [Tylenol] 650 mg PEG/G-TUBE Q8H PRN 06/14/20 06/14/20 Aspirin 81 mg PEG/G-TUBE DAILY 06/14/20 06/14/20 Osmolite 1.5 1 dose PEG/G-TUBE QID@02,14,18,22 06/14/20 06/14/20 Z-Guard 1 applic TOPICAL BID 06/14/20 Allergies Allergy/AdvReac Type Severity Reaction Status Date / Time No Known Allergies Allergy Verified 06/26/20 10:17 Review of Systems ROS Statement: Those systems with pertinent positive or pertinent negative responses have been documented in the HPI. ROS Other: All systems not noted in ROS Statement are negative. Past Medical History Past Medical History: CVA/TIA, Hearing Disorder / Deafness, Hyperlipidemia, Hypertension, Prostate Disorder Additional Past Medical History / Comment(s): Pt recently admitted to [facility] on 03/23/20 with dicharge diagnosis of: AMS changes/ischemic encephalopathy/vascular dementia/CPD/ASHD/presbycusis. He had a LP performed and was transferred to [facility]. Discharge diagnosis from [facility] list: severe generalized intracranial leukoencephalopathy/cerebral ventriculomegaly/cerebral atrophy/neurogenic dysphagia/UTI/urinary retention/constipation/suspected dysautonomally, acute encephalopathy. [facility] states they were also told uncontrolled HTN/hydrocephalus/advance dementia/uti. Other hx: 2012 CVA without residual, [place] bilaterally/speak in R ear, occasional urinary incontinence/frequency, CKD, nephrolithiasis, BPH, occasional back pain. History of Any Multi-Drug Resistant Organisms: None Reported Past Surgical History: Appendectomy Additional Past Surgical History / Comment(s): colonoscopy Past Anesthesia/Blood Transfusion Reactions: No Reported Reaction Past Psychological History: No Psychological Hx Reported Smoking Status: Former smoker Past Alcohol Use History: None Reported Past Drug Use History: None Reported - Past Family History Mother Family Medical History: Dementia, Hypertension Father Family Medical History: Cancer Additional Family Medical History / Comment(s): Lung cancer. Father was a smoker. General Exam Limitations: physical limitation Course Vital Signs 06/26/20 06/26/20 10:11 11:30 Temperature 98 F 98.1 F Pulse Rate 65 63 Respiratory 18 20 Rate Blood Pressure 122/80 127/89 O2 Sat by Pulse 96 Oximetry Disposition Clinical Impression: PEG tube malfunction Disposition: HOME SELF-CARE Condition: Good Instructions (If sedation given, give patient instructions): How to Use and Care for Your PEG Tube (ED) Additional Instructions: Please make sure that staff is adequately flushing and caring for your PEG tube to prevent recurrent clogging. Is patient prescribed a controlled substance at d/c from ED?: No Referrals: Khanh Sosa MD [Primary Care Provider] - 1-2 days Time of Disposition: 12:01
[2020-06-26 11:34] VITALS: BP 127/89; PULSE 63; RESP 20; TEMP 98.1
--- NOTE | 2020-06-26 11:52 | XR ---
EXAMINATION TYPE: XR abdomen 1V DATE OF EXAM: 06/26/2020 Comparison: 06/25/2020 Clinical History: 65-year-old male peg tube placement, PEGogram Findings: 50 mL Isovue 370 was injected through the patient's PEG tube to assess patency by the technologist. Contrast opacifies the gastric lumen and extends into the second portion of the duodenum. Oral contra st is present within the colon. No dilated small bowel loops. Impression: The previously injected contrast has made its way to the colon. Newly injected contrast into the ankit ent's PEG tube shows opacification of the stomach and second part of the duodenum.
== END 2020-06-26 13:16 | disposition home or self-care (01) ==
LOC: EC 10:10
DX: K94.23 Gastrostomy malfunction (principal); I12.9 Hypertensive chronic kidney disease with stage 1 through stage 4 chronic kidney disease, or unspecified chronic kidney disease; N18.9 Chronic kidney disease, unspecified; E78.5 Hyperlipidemia, unspecified; H91.93 Unspecified hearing loss, bilateral; Z79.899 Other long term (current) drug therapy; Z79.82 Long term (current) use of aspirin; Z87.891 Personal history of nicotine dependence; Z90.89 Acquired absence of other organs; Z86.73 Personal history of transient ischemic attack (TIA), and cerebral infarction without residual deficits
CPT/HCPCS: 74018; 99283; 43762; Q9967; 99284

== ENCOUNTER 2020-12-30 22:27 | Observation (INO) | payer MEDICARE ==
--- NOTE | 2020-12-30 23:17 | ED ---
Male Urogenital HPI - General Chief complaint: Urogenital Stated complaint: UTI Time Seen by Provider: 12/30/20 22:48 Source: patient, EMS Mode of arrival: EMS - Related Data Home Medications Medication Instructions Recorded Confirmed Atorvastatin [Lipitor] 10 mg PEG/G-TUBE HS 04/14/20 06/14/20 Folic Acid 0.4 mg PEG/G-TUBE DAILY 04/14/20 06/14/20 Ipratropium-Albuterol Nebulize 3 ml INHALATION RT-Q4H PRN 04/14/20 06/14/20 [Duoneb 0.5 mg-3 mg/3 ml Soln] Ondansetron HCl [Zofran] 4 mg PEG/G-TUBE Q6H PRN 04/14/20 06/14/20 Propranolol HCl 60 mg PEG/G-TUBE DAILY 04/14/20 06/14/20 QUEtiapine [SEROquel] 75 mg PEG/G-TUBE TID 04/14/20 06/14/20 Thiamine HCl [Vitamin B-1] 300 mg PEG/G-TUBE DAILY 04/14/20 06/14/20 amLODIPine [Norvasc] 10 mg PEG/G-TUBE DAILY 04/14/20 06/14/20 Acetaminophen Tab [Tylenol] 650 mg PEG/G-TUBE Q8H PRN 06/14/20 06/14/20 Aspirin 81 mg PEG/G-TUBE DAILY 06/14/20 06/14/20 Osmolite 1.5 1 dose PEG/G-TUBE QID@02,14,18,22 06/14/20 06/14/20 Z-Guard 1 applic TOPICAL BID 06/14/20 Allergies Allergy/AdvReac Type Severity Reaction Status Date / Time No Known Allergies Allergy Verified 06/26/20 10:17 Review of Systems ROS Statement: Those systems with pertinent positive or pertinent negative responses have been documented in the HPI. ROS Other: All systems not noted in ROS Statement are negative. Past Medical History Past Medical History: CVA/TIA, Hearing Disorder / Deafness, Hyperlipidemia, Hypertension, Prostate Disorder Additional Past Medical History / Comment(s): Pt recently admitted to [facility] on 03/23/20 with dicharge diagnosis of: AMS changes/ischemic encephalopathy/vascular dementia/CPD/ASHD/presbycusis. He had a LP performed and was transferred to [facility]. Discharge diagnosis from [facility] list: severe generalized intracranial leukoencephalopathy/cerebral ventriculomegaly/cerebral atrophy/neurogenic dysphagia/UTI/urinary retention/constipation/suspected dysautonomally, acute encephalopathy. [facility] states they were also told uncontrolled HTN/hydrocephalus/advance dementia/uti. Other hx: 2013 CVA without residual, [place] bilaterally/speak in R ear, occasional urinary incontinence/frequency, CKD, nephrolithiasis, BPH, occasional back pain. History of Any Multi-Drug Resistant Organisms: None Reported Past Surgical History: Appendectomy Additional Past Surgical History / Comment(s): colonoscopy Past Anesthesia/Blood Transfusion Reactions: No Reported Reaction Past Psychological History: No Psychological Hx Reported Smoking Status: Former smoker Past Alcohol Use History: None Reported Past Drug Use History: None Reported - Past Family History Mother Family Medical History: Dementia, Hypertension Father Family Medical History: Cancer Additional Family Medical History / Comment(s): Lung cancer. Father was a smoker. Course Vital Signs 12/30/20 22:29 Temperature 97.5 F L Pulse Rate 77 Respiratory 16 Rate Blood Pressure 123/70 O2 Sat by Pulse 97 Oximetry Medical Decision Making - Lab Data Result diagrams: 12/30/20 23:25 12/30/20 23:25 Lab Results 12/30/20 12/30/20 12/30/20 Range/Units 23:25 23:25 23:25 WBC 7.5 (3.8-10.6) k/uL RBC 4.25 L (4.30-5.90) m/uL Hgb 14.2 (13.0-17.5) gm/dL Hct 41.1 (39.0-53.0) % MCV 96.7 (80.0-100.0) fL MCH 33.4 (25.0-35.0) pg MCHC 34.5 (31.0-37.0) g/dL RDW 13.0 (11.5-15.5) % Plt Count 164 (150-450) k/uL MPV 7.7 Neutrophils % 58 % Lymphocytes % 26 % Monocytes % 8 % Eosinophils % 6 % Basophils % 1 % Neutrophils # 4.4 (1.3-7.7) k/uL Lymphocytes # 1.9 (1.0-4.8) k/uL Monocytes # 0.6 (0-1.0) k/uL Eosinophils # 0.5 (0-0.7) k/uL Basophils # 0.1 (0-0.2) k/uL Sodium 139 (137-145) mmol/L Potassium 4.7 (3.5-5.1) mmol/L Chloride 111 H (98-107) mmol/L Carbon Dioxide 22 (22-30) mmol/L Anion Gap 6 mmol/L BUN 24 H (9-20) mg/dL Creatinine 0.97 (0.66-1.25) mg/dL Est GFR (CKD-EPI)AfAm >90 (>60 ml/min/1.73 sqM) Est GFR (CKD-EPI)NonAf 81 (>60 ml/min/1.73 sqM) Glucose 95 (74-99) mg/dL Calcium 9.1 (8.4-10.2) mg/dL Phosphorus 3.2 (2.5-4.5) mg/dL Magnesium 1.9 (1.6-2.3) mg/dL Total Bilirubin 0.5 (0.2-1.3) mg/dL AST 22 (17-59) U/L ALT 13 (4-49) U/L Alkaline Phosphatase 41 (38-126) U/L Creatine Kinase 60 (55-170) U/L Total Protein 6.6 (6.3-8.2) g/dL Albumin 3.9 (3.5-5.0) g/dL Urine Color Yellow Urine Appearance Cloudy (Clear) Urine pH 7.0 (5.0-8.0) Ur Specific [place] 1.015 (1.001-1.035) Urine Protein 2+ H (Negative) Urine Glucose (UA) Negative (Negative) Urine Ketones Negative (Negative) Urine Blood Moderate H (Negative) Urine Nitrite Positive (Negative) Urine Bilirubin Negative (Negative) Urine Urobilinogen <2.0 (<2.0) mg/dL Ur Leukocyte Esterase Large H (Negative) Urine RBC 95 H (0-5) /hpf Urine WBC >182 H (0-5) /hpf Urine WBC Clumps Many H (None) /hpf Urine Bacteria Few H (None) /hpf - EKG Data -: EKG Interpreted by Me (EKG is sinus rhythm 75 AR 172 QRS 80 QTC 408) Disposition Clinical Impression: Generalized weakness, UTI (urinary tract infection), Urinary retention, Altered mental status Disposition: ADMITTED IP TO THIS HOSP Condition: Fair Is patient prescribed a controlled substance at d/c from ED?: No Referrals: Khanh Sosa MD [Primary Care Provider] - 1-2 days
[2020-12-30] MEDS ORDERED: HYDROmorphone 1 MG/ML 1 ML SYRINGE IVP STA (23:35)
[2020-12-30] MEDS ORDERED: LORazepam 2 MG/ML INJ IV STA (23:35)
[2020-12-30 23:46] LABS: Basophils # (A) 0.1 k/uL (0-0.2); Basophils % (A) 1 %; Eosinophils # (A) 0.5 k/uL (0-0.7); Eosinophils % (A) 6 %; HCT 41.1 % (39.0-53.0); HGB 14.2 gm/dL (13.0-17.5); Lymphocytes # (A) 1.9 k/uL (1.0-4.8); Lymphocytes % (A) 26 %; MCH 33.4 pg (25.0-35.0); MCHC 34.5 g/dL (31.0-37.0); MCV 96.7 fL (80.0-100.0); Mean Platelet Volume 7.7; Monocytes # (A) 0.6 k/uL (0-1.0); Monocytes % (A) 8 %; Neutrophils # (A) 4.4 k/uL (1.3-7.7); Neutrophils % (A) 58 %; Platelet Count 164 k/uL (150-450); RBC 4.25 m/uL (4.30-5.90); WBC 7.5 k/uL (3.8-10.6)
[2020-12-31] LABS: ALT 13 U/L (4-49); African American GFR (CKD) >90 (>60 ml/min/1.73 sqM); Albumin 3.9 g/dL (3.5-5.0); Anion Gap 6 mmol/L; Blood Urea Nitrogen 24 mg/dL (9-20); Calcium 9.1 mg/dL (8.4-10.2); Carbon Dioxide 22 mmol/L (22-30); Chloride 111 mmol/L (98-107); Creatine Kinase 60 U/L (55-170); Glucose 95 mg/dL (74-99); Non-African American GFR(CKD) 81 (>60 ml/min/1.73 sqM); Sodium 139 mmol/L (137-145); Total Bilirubin 0.5 mg/dL (0.2-1.3); Total Protein 6.6 g/dL (6.3-8.2)
[2020-12-31 00:04] LABS: AST 22 U/L (17-59); Alkaline Phosphatase 41 U/L (38-126); Appearance,Urine Cloudy (Clear); Bacteria,Urine Few /hpf; Bilirubin,Urine Negative (Negative); Blood,Urine Moderate (Negative); Color,Urine Yellow; Glucose,Urine (UA) Negative (Negative); Ketones,Urine Negative (Negative); Leukocyte Esterase,Urine Large (Negative); Magnesium 1.9 mg/dL (1.6-2.3); Nitrite,Urine Positive (Negative); Phosphorus 3.2 mg/dL (2.5-4.5); Potassium 4.7 mmol/L (3.5-5.1); Protein,Urine 2+ (Negative); RBC,Urine 95 /hpf (0-5); Specific Gravity,Urine 1.015 (1.001-1.035); Urobilinogen,Urine <2.0 mg/dL (<2.0); WBC,Urine >182 /hpf (0-5)
[2020-12-31] MEDS ORDERED: NALOXONE 0.4 MG/ML 1 ML VIAL IV PRN (01:37)
[2020-12-31] MEDS ORDERED: ONDANSETRON 4 MG/2 ML VIAL IVP PRN (01:37)
[2020-12-31] MEDS ORDERED: MORPHINE SULFATE 4 MG/ML SYRINGE IV PRN (01:37)
--- NOTE | 2020-12-31 13:25 | HP ---
HISTORY AND PHYSICAL CHIEF COMPLAINT: Mental status changes. HISTORY OF PRESENT ILLNESS: This is another admission for this 65-year-old white male, has a long history of severe hypertension, prior CVA and a more recent event about a year or so ago. He is now in a detention with dementia. He has an indwelling Quinones. Apparently he exhibited behavioral changes and was sent to the emergency room. It was felt that he had a urinary tract infection and his Quinones catheter was changed and he was started on antibiotics. REVIEW OF SYSTEMS: Is unreliable due to his dementia. Past medical history, family history and personal and social histories reveal that he is on atorvastatin, folic acid, propranolol, quetiapine, ( ), amlodipine and aspirin. He is not allergic to any medication. PHYSICAL EXAMINATION: Blood pressure 122/70, pulse 77, regular, respirations 16, temperature 97.5. In general, he appeared to be well developed, well nourished, and awake and alert, confused. Head, ears, eyes, nose, mouth and throat were normal. Chest is clear. Cardiac exam is normal. Abdomen is soft, nontender and extremities are normal. Neurologically, he is grossly intact, but confused, consistent with his dementia. Admitted to the hospital. DIAGNOSIS: 1. Urinary tract infection. 2. Indwelling Quinones catheter. 3. Atherosclerotic cardiovascular disease. 4. History of chronic obstructive pulmonary disease. 5. History of hypertension. 6. History of CVAs. PLAN: 1. Bedrest. 2. IV fluids. 3. Culture of the urine. 4. Replace Quinones catheter. 5. IV antibiotics. MMODL / IJN: [id number] /
[2020-12-31] MEDS: SODIUM CHLORIDE 0.9% 1,000 ML IV SCH (18:25)
[2020-12-31] MEDS ORDERED: LORazepam 2 MG/ML INJ IV STA (23:38)
[2021-01-01] MEDS: SODIUM CHLORIDE 0.9% 1,000 ML IV SCH (00:01)
[2021-01-01] MEDS ORDERED: HALOPERIDOL LACTATE 5 MG/ML 1 ML VIAL IM ONE (05:07)
--- NOTE | 2021-01-01 13:40 | DS ---
DISCHARGE SUMMARY CHIEF COMPLAINT: Mental status changes and delirium. HISTORY OF PRESENT ILLNESS AND PHYSICAL EXAMINATION: Details of this man's history and physical can be found in the initial workup. LABORATORY STUDIES: While he was in the hospital, he had laboratory studies, details of which can be found in the laboratory section of his chart. COURSE IN THE HOSPITAL: After admission, he was placed on bedrest, started on intravenous fluids and IV antibiotics. Quinones was replaced. He did well, but then he developed agitation and delirium during the night. He was stable enough it was felt he could go back to the alf on the . He will go there on his usual activity, diet and medications along with Augmentin 875 twice a day for 10 days. FINAL DIAGNOSES: 1. Urinary tract infection. 2. Delirium. 3. Post infarction dementia. 4. History of hypertension. 5. History of chronic obstructive pulmonary disease. 6. Delirium. OPERATIONS: None. CONSULTATION: None. He is improved. MMKAITYL / IJN: [id number] /
[2021-01-01 15:08] VITALS: BP 144/75; PULSE 85; RESP 17; TEMP 97.8
[2021-01-01] MEDS ORDERED: AMOXIC-POT CLAV 875-125MG 1 EACH TAB PO SCH (21:00)
== END 2021-01-01 18:20 ==
LOC: EC 22:27 → 4SSUR 12-31 01:37
PROVIDERS: ADMIT Family Medicine; ATTEND Family Medicine
DX: N39.0 Urinary tract infection, site not specified (principal); F01.50 Vascular dementia, unspecified severity, without behavioral disturbance, psychotic disturbance, mood disturbance, and anxiety; I10 Essential (primary) hypertension; J44.9 Chronic obstructive pulmonary disease, unspecified; I25.10 Atherosclerotic heart disease of native coronary artery without angina pectoris; E78.5 Hyperlipidemia, unspecified; H91.10 Presbycusis, unspecified ear; G93.89 Other specified disorders of brain; N42.9 Disorder of prostate, unspecified; Z79.82 Long term (current) use of aspirin; Z79.899 Other long term (current) drug therapy; Z87.891 Personal history of nicotine dependence; Z86.73 Personal history of transient ischemic attack (TIA), and cerebral infarction without residual deficits; Z80.1 Family history of malignant neoplasm of trachea, bronchus and lung; Z82.49 Family history of ischemic heart disease and other diseases of the circulatory system
CPT/HCPCS: 96376; 96366 ×2; 96372; 96365; 96375; 99285; 36415; 93005; 97162; 97166; 80053; 82550; 83735; 84100; 85025; 81001; 87086; 87635; G0378 ×2; J2060 ×2; J1630; J0696 ×3; J1170

== ENCOUNTER 2021-07-01 12:53 | Inpatient (IN) | payer MEDICARE ==
[2021-07-01] MEDS ORDERED: ACETAMINOPHEN TAB 500 MG TAB PO STA (13:02)
[2021-07-01] MEDS ORDERED: IBUPROFEN IV 600 MG in SODIUM CHLORIDE 0.9% 250 ML IV STA (13:02)
[2021-07-01] MEDS ORDERED: IPRATROPIUM-ALBUTEROL 3 ML NEB INHALATION STA (13:08)
--- NOTE | 2021-07-01 13:08 | ED ---
General Adult HPI - General Stated complaint: Catheter issue Time Seen by Provider: 07/01/21 12:53 Source: EMS, RN notes reviewed, old records reviewed - History of Present Illness Initial comments: This is a 66-year-old male who presents emergency Department via EMS from a alf. assisted sent him in because when they try to get his catheter out the patient refuses and it seemed to hurt him so they sent him to the emergency department. They also stated that when they try to urinate on the catheter they believe all he got was some pus. Patient is unable to give any history. At this time there is no other history available. - Related Data Home Medications Medication Instructions Recorded Confirmed Atorvastatin [Lipitor] 10 mg PO HS@2100 04/14/20 12/31/20 Folic Acid 0.4 mg PO DAILY@0904/14/20 12/31/20 Ipratropium-Albuterol Nebulize 3 ml INHALATION RT-Q4H PRN 04/14/20 12/31/20 [Duoneb 0.5 mg-3 mg/3 ml Soln] Ondansetron HCl [Zofran] 4 mg PO Q6H PRN 04/14/20 12/31/20 Propranolol HCl 60 mg PO DAILY@0900 04/14/20 12/31/20 Thiamine HCl [Vitamin B-1] 300 mg PO DAILY@0900 04/14/20 12/31/20 amLODIPine [Norvasc] 10 mg PO DAILY@0900 04/14/20 12/31/20 Acetaminophen Tab [Tylenol] 650 mg PO Q8H PRN 06/14/20 12/31/20 Aspirin 81 mg PO DAILY@0900 06/14/20 12/31/20 QUEtiapine [SEROquel] 25 mg PO TID@0900,1300,2100 12/31/20 12/31/20 Previous Rx's Medication Instructions Recorded Amoxic-Pot Clav 875-125Mg 1 each PO Q12HR #20 tab 01/01/21 [Augmentin 875-125] Allergies Allergy/AdvReac Type Severity Reaction Status Date / Time No Known Allergies Allergy Verified 12/31/20 07:53 Review of Systems ROS Statement: Those systems with pertinent positive or pertinent negative responses have been documented in the HPI. ROS Other: All systems not noted in ROS Statement are negative. Past Medical History Past Medical History: CVA/TIA, Hearing Disorder / Deafness, Hyperlipidemia, Hypertension, Prostate Disorder Additional Past Medical History / Comment(s): [facility] with dicharge diagnosis of: AMS changes/ischemic encephalopathy/vascular dementia/CPD/ASHD/presbycusis. He had a LP performed and was transferred to [facility]. Discharge diagnosis from [facility] list: severe generalized intracranial leukoencephalopathy/cerebral ventriculomegaly/cerebral atrophy/neurogenic dysphagia/UTI/urinary retention/constipation/suspected dysautonomally, acute encephalopathy. [facility] states they were also told uncontrolled HTN/hydrocephalu s/advance dementia/uti. Other hx: 2013 CVA without residual, [place] bilaterally/speak in R ear, occasional urinary incontinence/frequency, CKD, nephrolithiasis, BPH, occasional back pain. History of Any Multi-Drug Resistant Organisms: None Reported Past Surgical History: Appendectomy Additional Past Surgical History / Comment(s): colonoscopy Past Anesthesia/Blood Transfusion Reactions: No Reported Reaction Past Psychological History: No Psychological Hx Reported Smoking Status: Former smoker Past Alcohol Use History: None Reported Past Drug Use History: None Reported - Past Family History Mother Family Medical History: Dementia, Hypertension Father Family Medical History: Cancer Additional Family Medical History / Comment(s): Lung cancer. Father was a smoker. General Exam - General Exam Comments Initial Comments: GENERAL: Patient is well-developed and well-nourished. Patient is nontoxic and well-hydrated and is in no acute distress. ENT: Neck is soft and supple. No significant lymphadenopathy is noted. Oropharynx is clear. Moist mucous membranes. Neck has full range of motion without eliciting any pain. EYES: The sclera were anicteric and conjunctiva were pink and moist. Extraocular movements were intact and pupils were equal round and reactive to light. Eyelids were unremarkable. PULMONARY: Unlabored respirations. Good breath sounds bilaterally. No audible rales rhonchi or wheezing was noted. CARDIOVASCULAR: Patient has expiratory wheezing. ABDOMEN: Abdomen is tender in the suprapubic region and appears to be somewhat distended SKIN: Skin is clear with no lesions or rashes and otherwise unremarkable. NEUROLOGIC: Patient is alert and orientation cannot be assessed. Cranial nerves II through XII are grossly intact. MUSCULOSKELETAL: Patient moves his upper extremities with full range of motion but he does not understand because he is deaf and I can't get him to move his lower legs at this time. He does move all of them a little bilaterally but whether they're full range of motion I cannot tell at this time LYMPHATICS: No significant lymphadenopathy is noted PSYCHIATRIC: Unable to assess Course Vital Signs 07/01/21 07/01/21 07/01/21 12:56 13:43 13:55 Temperature 100.2 F H Pulse Rate 94 96 96 Respiratory 18 Rate Blood Pressure 142/91 O2 Sat by Pulse 96 Oximetry Medical Decision Making - Medical Decision Making EKG shows normal sinus rhythm at 93 bpm NE interval is 180 QRS is 72 QT interval 346 QTC is 4:30. Patient's EKG shows no ST segment elevation or depression. Dr. Limon came into the emergency department with the catheter as well as the urethral stone and place another catheter. I spoke with Dr. Pate and he agreed to admit the patient admitted the patient wrote admitting orders. Patient was assumed to have a urinary tract infection at the time the antibiotics were administered but we have yet to have a urin alysis results - Lab Data Result diagrams: 07/01/21 14:14 07/01/21 14:14 Lab Results 07/01/21 07/01/21 07/01/21 Range/Units 14:14 14:14 14:14 WBC 20.4 H (3.8-10.6) k/uL RBC 4.83 (4.30-5.90) m/uL Hgb 15.9 (13.0-17.5) gm/dL Hct 47.5 (39.0-53.0) % MCV 98.3 (80.0-100.0) fL MCH 32.9 (25.0-35.0) pg MCHC 33.4 (31.0-37.0) g/dL RDW 12.6 (11.5-15.5) % Plt Count 150 (150-450) k/uL MPV 8.1 Neutrophils % (Manual) 87 % Band Neuts % (Manual) 4 % Lymphocytes % (Manual) 4 % Monocytes % (Manual) 5 % Neutrophils # (Manual) 18.50 H (1.3-7.7) k/uL Lymphocytes # (Manual) 0.82 L (1.0-4.8) k/uL Monocytes # (Manual) 1.02 H (0-1.0) k/uL Nucleated RBCs 0 (0-0) /100 WBC Manual Slide Review Performed RBC Morphology Normal PT 12.0 (9.0-12.0) sec INR 1.1 (<1.2) APTT 23.8 (22.0-30.0) sec Sodium 134 L (137-145) mmol/L Potassium 5.7 H (3.5-5.1) mmol/L Chloride 102 (98-107) mmol/L Carbon Dioxide 19 L (22-30) mmol/L Anion Gap 13 mmol/L BUN 60 H (9-20) mg/dL Creatinine 4.36 H (0.66-1.25) mg/dL Est GFR (CKD-EPI)AfAm 15 (>60 ml/min/1.73 sqM) Est GFR (CKD-EPI)NonAf 13 (>60 ml/min/1.73 sqM) Glucose 178 H (74-99) mg/dL Plasma Lactic Acid [place] (0.7-2.0) mmol/L Calcium 9.1 (8.4-10.2) mg/dL Total Bilirubin 1.6 H (0.2-1.3) mg/dL AST 39 (17-59) U/L ALT 16 (4-49) U/L Alkaline Phosphatase 59 (38-126) U/L Total Protein 7.1 (6.3-8.2) g/dL Albumin 3.8 (3.5-5.0) g/dL 07/01/21 Range/Units 14:14 WBC (3.8-10.6) k/uL RBC (4.30-5.90) m/uL Hgb (13.0-17.5) gm/dL Hct (39.0-53.0) % MCV (80.0-100.0) fL MCH (25.0-35.0) pg MCHC (31.0-37.0) g/dL RDW (11.5-15.5) % Plt Count (150-450) k/uL MPV Neutrophils % (Manual) % Band Neuts % (Manual) % Lymphocytes % (Manual) % Monocytes % (Manual) % Neutrophils # (Manual) (1.3-7.7) k/uL Lymphocytes # (Manual) (1.0-4.8) k/uL Monocytes # (Manual) (0-1.0) k/uL Nucleated RBCs (0-0) /100 WBC Manual Slide Review RBC Morphology PT (9.0-12.0) sec INR (<1.2) APTT (22.0-30.0) sec Sodium (137-145) mmol/L Potassium (3.5-5.1) mmol/L Chloride (98-107) mmol/L Carbon Dioxide (22-30) mmol/L Anion Gap mmol/L BUN (9-20) mg/dL Creatinine (0.66-1.25) mg/dL Est GFR (CKD-EPI)AfAm (>60 ml/min/1.73 sqM) Est GFR (CKD-EPI)NonAf (>60 ml/min/1.73 sqM) Glucose (74-99) mg/dL Plasma Lactic Acid [place] 1.6 (0.7-2.0) mmol/L Calcium (8.4-10.2) mg/dL Total Bilirubin (0.2-1.3) mg/dL AST (17-59) U/L ALT (4-49) U/L Alkaline Phosphatase (38-126) U/L Total Protein (6.3-8.2) g/dL Albumin (3.5-5.0) g/dL Disposition Clinical Impression: Urethral stone, Malfunction of Quinones catheter, Urinary tract infection, Renal failure, acute Disposition: ADMITTED IP TO THIS HOSP Referrals: Khanh Sosa MD [Primary Care Provider] - 1-2 days Time of Disposition: 17:25
[2021-07-01] MEDS: SODIUM CHLORIDE 0.9% 500 ML 500 ML IV SCH ×2 (14:14→18:41)
[2021-07-01 14:37] LABS: INR 1.1 (<1.2); Partial Thromboplastin Time 23.8 sec (22.0-30.0)
[2021-07-01 14:39] LABS: Albumin 3.8 g/dL (3.5-5.0); Calcium 9.1 mg/dL (8.4-10.2); Total Bilirubin 1.6 mg/dL (0.2-1.3); Total Protein 7.1 g/dL (6.3-8.2)
[2021-07-01 14:43] LABS: HCT 47.5 % (39.0-53.0); HGB 15.9 gm/dL (13.0-17.5); MCH 32.9 pg (25.0-35.0); MCHC 33.4 g/dL (31.0-37.0); MCV 98.3 fL (80.0-100.0); Mean Platelet Volume 8.1; Platelet Count 150 k/uL (150-450); RBC 4.83 m/uL (4.30-5.90); RDW 12.6 % (11.5-15.5); WBC 20.4 k/uL (3.8-10.6)
[2021-07-01 14:51] LABS: Potassium 5.7 mmol/L (3.5-5.1)
[2021-07-01 14:53] LABS: Band Neutrophils % 4 %; Lymphocytes # (M) 0.82 k/uL (1.0-4.8); Monocytes # (M) 1.02 k/uL (0-1.0); Neutrophils % (M) 87 %; Nucleated Red Blood Cells 0 /100 WBC (0-0); Total Cells Counted 100
[2021-07-01] MEDS ORDERED: LORazepam 2 MG/ML INJ IV STA (15:16)
--- NOTE | 2021-07-01 16:21 | XR ---
EXAMINATION TYPE: XR chest 1V portable DATE OF EXAM: 07/01/2021 COMPARISON: Chest radiograph 04/15/2020 HISTORY: Fever TECHNIQUE: Single frontal view of the chest is obtained. FINDINGS: There is no focal air space opacity, pleural effusion, or pneumothorax seen. The cardiac silhouette size is within normal limits. The osseous structures are intact. IMPRESSION: No acute process.
--- NOTE | 2021-07-01 16:32 | CT ---
EXAMINATION TYPE: CT pelvis wo con DATE OF EXAM: 07/01/2021 COMPARISON: None available HISTORY: Unable to place catheter. TECHNIQUE: Multiple contiguous axial CT images of the pelvis were obtained without the administration of intravenous contrast. 2-D sagittal and coronal reformats were obtained. CT DLP: 921.1 mGycm Automated exposure control for dose reduction was used. FINDINGS: The penile catheter terminates within the mid penile urethra in the region of extensive dystrophic ca lcifications. There is dilatation of the remaining penile and posterior urethra to the level of the d ystrophic calcifications and catheter termination. Prostate appears severely enlarged. There is nonspecific calcification along the posterior aspect of the urinary bladder which may be within the urinary bladder lumen, along the urinary bladder wall, or associated with the prostate gland, which measures up to 3.1 cm in greatest dimension. Urinary bladder appears distended. Partially visualized rectum and sigmoid colons appear unremarkable. Partially visualized cecum appear s normal. There is fecal material outside the anus and within the gluteal cleft, as well as outside t he patient. There is partially visualized obstructing ureteral calculus within the mid left ureter measuring 5 mm and partially visualized left perinephric fat stranding inferiorly. IMPRESSION: 1. Penile catheter terminates within the mid penile urethra within the region of extensive dystrophic calcifications. There is dilatation of the remaining penile and posterior urethra to the level of th e calcifications and catheter termination. 2. Partially visualized 5 mm mid left ureteral calculus and partially visualized left perinephric fat stranding inferiorly. 3. Urinary bladder appears distended. Prostate gland appears severely enlarged. There is a 3.1 cm sebastian cification along the posterior aspect of the urinary bladder just left of midline, which may be withi n the urinary bladder lumen, urinary bladder wall, or the prostate gland.
[2021-07-01] MEDS ORDERED: cefTRIAXone IN SWFI 1,000 MG/10 ML SYRINGE IVP STA (16:39)
--- NOTE | 2021-07-01 17:08 | P.GSCN ---
History of Present Illness Consult date: 07/01/21 History of present illness: 66 yo male from an extended care facility with a chronic indwelling catheter. The facility was attempting to change the cath today because no urine output but were unable to do so. the er here at [facility] attempted but the cath wuldnt come. It is unknown when the last cath change was. The patient can give no history. I can see from the hospital records there was a cath change 12/2020. a ct scan of the pelvis shos the cath pulled to the bulbar urethra with alot of stone around the tip of the cath suggesting it hasnt been changed for some time. Review of Systems ROS unobtainable: due to mental status Past Medical History Past Medical History: CVA/TIA, Hearing Disorder / Deafness, Hyperlipidemia, Hypertension, Prostate Disorder Additional Past Medical History / Comment(s): Pt recently admitted to [facility] on 03/23/20 with dicharge diagnosis of: AMS changes/ischemic encephalopathy/vascular dementia/CPD/ASHD/presbycusis. He had a LP performed and was transferred to [facility]. Discharge diagnosis from [facility] list: severe generalized intracranial leukoencephalopathy/cerebral ventriculomegaly/cerebral atrophy/neurogenic dysphagia/UTI/urinary retention/constipation/suspected dysautonomally, acute encephalopathy. [facility] states they were also told uncontrolled HTN/hydrocephalus/advance dementia/uti. Other hx: 2013 CVA without residual, [place] bilaterally/speak in R ear, occasional urinary incontinence/frequency, CKD, nephrolithiasis, BPH, occasional back pain. History of Any Multi-Drug Resistant Organisms: None Reported Past Surgical History: Appendectomy Additional Past Surgical History / Comment(s): colonoscopy Past Anesthesia/Blood Transfusion Reactions: No Reported Reaction Past Psychological History: No Psychological Hx Reported Smoking Status: Former smoker Past Alcohol Use History: None Reported Past Drug Use History: None Reported - Past Family History Mother Family Medical History: Dementia, Hypertension Father Family Medical History: Cancer Additional Family Medical History / Comment(s): Lung cancer. Father was a smoker. Medications and Allergies Home Medications Medication Instructions Recorded Confirmed Type Atorvastatin [Lipitor] 10 mg PO HS@2100 04/14/20 12/31/20 History Folic Acid 0.4 mg PO DAILY@0900 04/14/20 12/31/20 History Ipratropium-Albuterol Nebulize 3 ml INHALATION RT-Q4H PRN 04/14/20 12/31/20 History [Duoneb 0.5 mg-3 mg/3 ml Soln] Ondansetron HCl [Zofran] 4 mg PO Q6H PRN 04/14/20 12/31/20 History Propranolol HCl 60 mg PO DAILY@0900 04/14/20 12/31/20 History Thiamine HCl [Vitamin B-1] 300 mg PO DAILY@0900 04/14/20 12/31/20 History amLODIPine [Norvasc] 10 mg PO DAILY@0900 04/14/20 12/31/20 History Acetaminophen Tab [Tylenol] 650 mg PO Q8H PRN 06/14/20 12/31/20 History Aspirin 81 mg PO DAILY@0900 06/14/20 12/31/20 History QUEtiapine [SEROquel] 25 mg PO TID@0900,1300,2100 12/31/20 12/31/20 History Amoxic-Pot Clav 875-125Mg 1 each PO Q12HR #20 tab 01/01/21 Rx [Augmentin 875-125] Allergies Allergy/AdvReac Type Severity Reaction Status Date / Time No Known Allergies Allergy Verified 12/31/20 07:53 Surgical - Exam Vital Signs Temp Pulse Resp BP Pulse Ox 100.2 F H 94 18 142/91 96 07/01/21 12:56 07/01/21 12:56 07/01/21 12:56 07/01/21 12:56 07/01/21 12:56 - General sedated uncooperative to stimulus well developed, well nourished - ENT decreased hearing - Respiratory normal respiratory effort - Cardiovascular Rhythm: regular - Abdomen bladder feels full Abdomen: soft - Genitourinary uncircumsized penis with indwelling cath out further than normally would be.. Questionable palpable calcification in the ure.thra palpated thru the perineum - Neurologic sedated combative Results - Labs 07/01/21 14:14 07/01/21 14:14 Abnormal Lab Results - Last 24 Hours (Table) 07/01/21 07/01/21 Range/Units 14:14 14:14 WBC 20.4 H (3.8-10.6) k/uL Neutrophils # (Manual) 18.50 H (1.3-7.7) k/uL Lymphocytes # (Manual) 0.82 L (1.0-4.8) k/uL Monocytes # (Manual) 1.02 H (0-1.0) k/uL Sodium 134 L (137-145) mmol/L Potassium 5.7 H (3.5-5.1) mmol/L Carbon Dioxide 19 L (22-30) mmol/L BUN 60 H (9-20) mg/dL Creatinine 4.36 H (0.66-1.25) mg/dL Glucose 178 H (74-99) mg/dL Total Bilirubin 1.6 H (0.2-1.3) mg/dL Diabetes panel 07/01/21 Range/Units 14:14 Sodium 134 L (137-145) mmol/L Potassium 5.7 H (3.5-5.1) mmol/L Chloride 102 (98-107) mmol/L Carbon Dioxide 19 L (22-30) mmol/L BUN 60 H (9-20) mg/dL Creatinine 4.36 H (0.66-1.25) mg/dL Glucose 178 H (74-99) mg/dL Calcium 9.1 (8.4-10.2) mg/dL AST 39 (17-59) U/L ALT 16 (4-49) U/L Alkaline Phosphatase 59 (38-126) U/L Total Protein 7.1 (6.3-8.2) g/dL Albumin 3.8 (3.5-5.0) g/dL Calcium panel 07/01/21 Range/Units 14:14 Calcium 9.1 (8.4-10.2) mg/dL Albumin 3.8 (3.5-5.0) g/dL Pituitary panel 07/01/21 Range/Units 14:14 Sodium 134 L (137-145) mmol/L Potassium 5.7 H (3.5-5.1) mmol/L Chloride 102 (98-107) mmol/L Carbon Dioxide 19 L (22-30) mmol/L BUN 60 H (9-20) mg/dL Creatinine 4.36 H (0.66-1.25) mg/dL Glucose 178 H (74-99) mg/dL Calcium 9.1 (8.4-10.2) mg/dL Adrenal panel 07/01/21 Range/Units 14:14 Sodium 134 L (137-145) mmol/L Potassium 5.7 H (3.5-5.1) mmol/L Chloride 102 (98-107) mmol/L Carbon Dioxide 19 L (22-30) mmol/L BUN 60 H (9-20) mg/dL Creatinine 4.36 H (0.66-1.25) mg/dL Glucose 178 H (74-99) mg/dL Calcium 9.1 (8.4-10.2) mg/dL Total Bilirubin 1.6 H (0.2-1.3) mg/dL AST 39 (17-59) U/L ALT 16 (4-49) U/L Alkaline Phosphatase 59 (38-126) U/L Total Protein 7.1 (6.3-8.2) g/dL Albumin 3.8 (3.5-5.0) g/dL - Imaging CT scan - pelvis: report reviewed, image reviewed Assessment and Plan Assessment: Impression: urine retention. Mental incapacity. multiple medical illnesses' Plan: cath removal and exchange
--- NOTE | 2021-07-01 17:18 | P.PCN ---
Date of Procedure: 07/01/21 Preoperative Diagnosis: urine retention, cath retention Postoperative Diagnosis: same secondary to catheter calcification Procedure(s) Performed: removal of old catheter[difficult]. dilation of urethra with f/f, placement of 12 fr cath with difficulty Anesthesia: none Indications for Procedure: The patient comes from an extended care facility where a catheter was being changed but the staff was unable to do so. The er staff here also couldnt change. A ct scan showed the cath in the bulbar urethra with alot of calcification around it. Description of Procedure: the patients cath is obviously not in the bladder based on the amount out of the urethra. It appears to be old. We continued tension I am able to remove the catheter. The balloon was broken and there is alot of calcium debris around the catheter. I then prep and drape the patient. With help from the nursing staff I attempt to pass a 16 coude tip cath. It fails due to obstruction in the bulbar urethra. I also fail with a 14 fr coude. I then pass a 5 fr spiral filiform thru the calcification in the urethra. I attach a 14 follower to displace the calcareous debris. I then am able to pass a 12 fr coude tip into the bladder with cludy urine return IOmpression: Difficult cath placement as described above. Stone in urethrand bladder. the patient will need an anesthetic cysto with laser litho to urethral and bladder stone in the future. He will be admitted for ivf and antibiotics due to his elevated wbc and urine retention
[2021-07-01] MEDS ORDERED: SODIUM CHLORIDE 0.9% 1,000 ML IV ONE (17:27)
[2021-07-01 19:28] LABS: Appearance,Urine Turbid (Clear); Color,Urine Brown
[2021-07-01 19:30] LABS: Bacteria,Urine Many /hpf; RBC,Urine >182 /hpf (0-5); WBC,Urine >182 /hpf (0-5)
[2021-07-01] MEDS ORDERED: ONDANSETRON 4 MG TAB PO PRN (22:13)
[2021-07-01] MEDS ORDERED: IPRATROPIUM-ALBUTEROL 3 ML NEB INHALATION PRN (22:13)
[2021-07-01] MEDS ORDERED: LORazepam 2 MG/ML INJ IV PRN (22:15)
[2021-07-01] MEDS: QUEtiapine 50 MG TAB PO SCH (22:36)
[2021-07-01] MEDS: QUEtiapine 25 MG TAB PO SCH (22:36)
[2021-07-02] MEDS: ASPIRIN 81 MG PO SCH (08:29)
[2021-07-02] MEDS: PROPRANOLOL 20 MG TAB PO SCH (08:29)
[2021-07-02] MEDS: QUEtiapine 50 MG TAB PO SCH ×3 (08:29→20:55)
[2021-07-02] MEDS: FOLIC ACID 1 MG TAB PO SCH (08:30)
[2021-07-02] MEDS: QUEtiapine 25 MG TAB PO SCH ×3 (08:30→20:55)
[2021-07-02] MEDS: THIAMINE 100 MG TAB PO SCH (08:30)
[2021-07-02] MEDS: amLODIPine 10 MG TAB PO SCH (08:31)
[2021-07-02] MEDS ORDERED: ACETAMINOPHEN TAB 325 MG TAB PO PRN (10:45)
[2021-07-02] MEDS: DEXTROSE 5%-0.45% NACL 1,000 ML IV SCH ×2 (11:09→20:55)
--- NOTE | 2021-07-02 15:53 | PN ---
PROGRESS NOTE CHIEF COMPLAINT: Sepsis. HISTORY OF PRESENT ILLNESS: This gentleman is awake and alert and seems to be doing well. Temperature has been down. PHYSICAL EXAMINATION: His chest is clear. The cardiac exam is normal. The abdomen is soft and nontender. IMPRESSION: 1. Obstructive uropathy. 2. Purulent urethritis. 3. Hypertension. 4. Previous cerebrovascular accident. PLAN: Continue with IV fluids and antibiotics. MMODL / IJN: [id number] /
--- NOTE | 2021-07-02 15:53 | HP ---
HISTORY AND PHYSICAL CHIEF COMPLAINT: Fever and urinary obstruction. HISTORY OF PRESENT ILLNESS: This is another admission for this 66-year-old white male with a history of post- infarct dementia. He has an indwelling Quinones catheter and apparently started to run a fever. Nurses at the half-way inspected him and found that he had purulent drainage around his indwelling Quinones. They attempted to remove it and could not, and he was sent to the hospital. At that point the catheter was able to be extracted and puslike discharge was admitted from the penis. Because of the patient's stroke and his dementia, he is not a good historian. Past medical history, family history, and personal and social histories reveal that he has had a history of severe hypertension in the past and a CVA. PHYSICAL EXAMINATION: Blood pressure is 142/85 with a pulse of 90, respirations of 30 and temperature of 100. In general he appeared to be in no acute distress. Skin color was normal. Skin was warm and dry. Head, ears, eyes, nose, mouth and throat were normal. The chest was clear. Cardiac exam was normal. The abdomen was soft and nontender. Quinones catheter was in place with a purulent discharge. Extremities were normal. Neurologically he is intact except for his dementia. He is admitted to the hospital with diagnoses: 1. Urethritis. 2. Infected Quinones catheter. 3. Obstructive uropathy. 4. Previous cerebrovascular accident. 5. Hypertension. PLAN: 1. Bedrest. 2. IV fluids. 3. IV antibiotics. 4. Consult with the Urology. JORGE / DESI: [id number] /
[2021-07-02] MEDS: ACETAMINOPHEN TAB 325 MG TAB PO PRN ×2 (16:04→20:54)
[2021-07-02] MEDS: ATORVASTATIN 10 MG TAB PO SCH (20:54)
[2021-07-03] MEDS: DEXTROSE 5%-0.45% NACL 1,000 ML IV SCH ×2 (04:37→13:15)
[2021-07-03] MEDS: QUEtiapine 25 MG TAB PO SCH ×3 (08:49→20:49)
[2021-07-03] MEDS: amLODIPine 10 MG TAB PO SCH (08:49)
[2021-07-03] MEDS: QUEtiapine 50 MG TAB PO SCH ×3 (08:49→20:49)
[2021-07-03] MEDS: FOLIC ACID 1 MG TAB PO SCH (08:49)
[2021-07-03] MEDS: THIAMINE 100 MG TAB PO SCH (08:49)
[2021-07-03] MEDS: ASPIRIN 81 MG PO SCH (08:50)
[2021-07-03] MEDS: PROPRANOLOL 20 MG TAB PO SCH (08:52)
[2021-07-03 11:44] LABS: Basophils % (A) 0 %; Eosinophils # (A) 0.1 k/uL (0-0.7); Eosinophils % (A) 1 %; HCT 42.1 % (39.0-53.0); HGB 13.9 gm/dL (13.0-17.5); Lymphocytes # (A) 0.6 k/uL (1.0-4.8); Lymphocytes % (A) 5 %; MCH 33.1 pg (25.0-35.0); MCV 100.4 fL (80.0-100.0); Mean Platelet Volume 8.8; Monocytes # (A) 0.5 k/uL (0-1.0); Monocytes % (A) 5 %; Neutrophils # (A) 9.2 k/uL (1.3-7.7); Neutrophils % (A) 87 %; Platelet Count 105 k/uL (150-450); RBC 4.19 m/uL (4.30-5.90); RDW 13.2 % (11.5-15.5); WBC 10.6 k/uL (3.8-10.6)
[2021-07-03 12:07] LABS: ALT 14 U/L (4-49); AST 25 U/L (17-59); African American GFR (CKD) 49 (>60 ml/min/1.73 sqM); Albumin 2.8 g/dL (3.5-5.0); Alkaline Phosphatase 68 U/L (38-126); Anion Gap 8 mmol/L; Blood Urea Nitrogen 38 mg/dL (9-20); Calcium 8.4 mg/dL (8.4-10.2); Carbon Dioxide 23 mmol/L (22-30); Chloride 108 mmol/L (98-107); Globulin 2.9 g/dL; Glucose 150 mg/dL (74-99); Non-African American GFR(CKD) 42 (>60 ml/min/1.73 sqM); Potassium 3.8 mmol/L (3.5-5.1); Sodium 139 mmol/L (137-145); Total Bilirubin 0.4 mg/dL (0.2-1.3); Total Protein 5.7 g/dL (6.3-8.2)
[2021-07-03] MEDS: ATORVASTATIN 10 MG TAB PO SCH (20:49)
--- NOTE | 2021-07-03 21:56 | P.PN ---
Progress Note - Text Progress Note Date: 07/03/21 No acute overnight event, mancia in place draining cloudy urine. Urine culture showing gram negative bacilli. -F/U on final urine culture -Well need outpatient cystolithalopaxy as an outpatient to address his bladder stones.
[2021-07-04] MEDS: DEXTROSE 5%-0.45% NACL 1,000 ML IV SCH ×3 (03:26→13:33)
[2021-07-04] MEDS: ASPIRIN 81 MG PO SCH (09:03)
[2021-07-04] MEDS: amLODIPine 10 MG TAB PO SCH (09:03)
[2021-07-04] MEDS: FOLIC ACID 1 MG TAB PO SCH (09:04)
[2021-07-04] MEDS: THIAMINE 100 MG TAB PO SCH (09:05)
[2021-07-04] MEDS: QUEtiapine 50 MG TAB PO SCH ×3 (09:05→20:10)
[2021-07-04] MEDS: QUEtiapine 25 MG TAB PO SCH ×3 (09:05→20:10)
[2021-07-04] MEDS: PROPRANOLOL 20 MG TAB PO SCH (09:05)
--- NOTE | 2021-07-04 14:56 | CDI ---
Documentation Clarification Form Date: 07/04/2021 02:33:32 PM From: Rebeca Xie RN CCDS Admit Date: 07/01/2021 05:29:00 PM Patient Name: Jewel Mcintosh Visit Number: [id number] Discharge Date: ATTENTION: The Clinical Documentation Specialists (CDI) and [facility] Coding Staff appreciate your assistance in clarifying documentation. Please respond to the clarification below the line at the bottom and electronically sign. The CDI & [facility] Coding staff will review the response and follow-up if needed. Please note: Queries are made part of the Legal Health Record. If you have any questions, please contact the author of this message via ITS. Dr. Khanh Sosa Sepsis is documented Medicine progress note, 07/02, but is not noted in subsequent documentation. Clarification is requested. History/Risk Factors: 66-year-old male presents to the ED via EMS from [facility] when the staff was unable to do a catheter exchange. Medical History : Chronic indwelling mancia catheter. 07/01, Urology consult. Clinical Indicators: VSS 07/01: B/P 142/91; HR 94; Temp 100.2 F Oral; RR 18; SpO2 96% room air LABS 07/01: Wbc 20.4; Neutrophils 18.50, UA: appearance turbid, Wbc>182, Wbc Clumps Many. UA Culture 07/01: Escherichia Coli Blood Culture 07/01: Escherichia Coli 07/01, Urology consult: It is unknown when the last cath exchange was. A ct scan of the pelvis shows the cath pulled to the bulbar urethra with a lot of stone around the tip of the cath suggesting it hasnt been changed in some time. 07/01, H&P: Infected mancia Catheter. Treatment: IV Fluids: 07/01 0.9NS 500cc/bolus x 2. Antibiotics 07/01 Ceftriaxone 2gm IVPB x 1; 07/01 Ceftriaxone 1,00Omg IVP x 1; 07/02 current Ceftriaxone 2gm IVPB Q24H. Please clarify if the [insert diagnosis] is: [ ] Sepsis POA confirmed, remains under treatment [ ] Sepsis POA confirmed, resolved [ ] Sepsis ruled out [ ] Other condition, please specify [ ] Unable to determine (Template Last Revised: September 2020) MTDD
--- NOTE | 2021-07-04 15:06 | CDI ---
Documentation Clarification Form Date: 07/04/2021 02:58:15 PM From: Rebeca Xie Admit Date: 07/01/2021 05:29:00 PM Patient Name: Jewel Mcintosh Visit Number: [id number] Discharge Date: ATTENTION: The Clinical Documentation Specialists (CDI) and [facility] Coding Staff appreciate your assistance in clarifying documentation. Please respond to the clarification below the line at the bottom and electronically sign. The CDI & [facility] Coding staff will review the response and follow-up if needed. Please note: Queries are made part of the Legal Health Record. If you have any questions, please contact the author of this message via ITS. Dr. Khanh Sosa Infected mancia catheter 07/02, H&P. Additional clarification regarding the infected mancia catheter is requested. History/Risk Factors: 66-year-old male presents to the ED via EMS [facility] when the staff was unable to do a catheter exchange. Medical History : Chronic indwelling mancia catheter and UTI 07/01, Urology consult. VSS 07/01: B/P 142/91; HR 94; Temp 100.2 F Oral; RR 18; SpO2 96% room air LABS 07/01: Wbc 20.4; Neutrophils 18.50, UA: appearance turbid, Wbc>182, Wbc Clumps Many. UA Culture 07/01: Escherichia Coli Blood Culture 07/01: Escherichia Coli 07/01, Urology consult: It is unknown when the last cath exchange was. A ct scan of the pelvis shows the cath pulled to the bulbar urethra with a lot of stone around the tip of the cath suggesting it hasnt been changed in some time. Treatment: 07/01 Ceftriaxone 2gm IVPB x 1; 07/01 Ceftriaxone 1,00Omg IVP x 1; 07/02 current Ceftriaxone 2gm IVPB Q24H. Procedure 07/01: Removal of old catheter [difficult]. Dilation of urethra with f/f, placement of 12 fr cath with difficulty. Urology Consult: Please clarify the infected mancia catheter, if known: [ ] UTI due Mancia catheter [ ] UTI not related to catheter [ ] Other condition, please specify [ ] Unable to determine (Template Last Revised: September 2020) MTDD
[2021-07-04] MEDS: ATORVASTATIN 10 MG TAB PO SCH (20:10)
[2021-07-05] MEDS: DEXTROSE 5%-0.45% NACL 1,000 ML IV SCH ×3 (04:34→12:26)
[2021-07-05] MEDS: FOLIC ACID 1 MG TAB PO SCH (08:49)
[2021-07-05] MEDS: QUEtiapine 25 MG TAB PO SCH ×2 (08:49→13:09)
[2021-07-05] MEDS: PROPRANOLOL 20 MG TAB PO SCH (08:49)
[2021-07-05] MEDS: QUEtiapine 50 MG TAB PO SCH ×2 (08:49→13:09)
[2021-07-05] MEDS: THIAMINE 100 MG TAB PO SCH (08:49)
[2021-07-05] MEDS: amLODIPine 10 MG TAB PO SCH (08:49)
[2021-07-05] MEDS: ASPIRIN 81 MG PO SCH (08:50)
[2021-07-05 12:50] VITALS: BP 124/72; PULSE 66; RESP 16; TEMP 98.2
--- NOTE | 2021-07-05 13:01 | DS ---
DISCHARGE SUMMARY CHIEF COMPLAINT: Fever, purulent urethral discharge and obstructive uropathy. HISTORY OF PRESENT ILLNESS AND PHYSICAL EXAMINATION: Details of this man's history and physical can be found in the initial workup. LABORATORY STUDIES: While he was in the hospital he had laboratory studies, details of which can be found in the laboratory section of his chart. COURSE IN THE HOSPITAL: After admission, he was placed on bedrest, started on intravenous fluids and IV antibiotics. He was seen by Urology and the catheter was removed. A fairly large amount of purulence was expressed. There was an obstruction in the Quinones catheter. It was replaced. He was started on IV antibiotics and did well. He was doing well and it was felt he could be returned to the custodial on July 05. He will go there on his usual activity, diet and medication along with Augmentin 875 twice a day for 10 days. FINAL DIAGNOSES: 1. Urethritis. 2. Obstructive uropathy. 3. Dehydration. 4. Post-infarction encephalopathy. 5. Hypertension. OPERATIONS: None. CONSULTATIONS: 1. Urology. 2. Infectious Disease. He is improved. MMODL / IJN: [id number] /
--- NOTE | 2021-07-05 19:11 | PN ---
PROGRESS NOTE DATE OF SERVICE: 07/03/2021. CHIEF COMPLAINT: Obstructive uropathy with urethritis, cystitis and sepsis. HISTORY OF PRESENT ILLNESS: This gentleman is doing well. Temperature has been down. Catheter is draining well. Antibiotics continue. PHYSICAL EXAMINATION: He is awake and alert. Chest is clear. Cardiac exam is normal. Abdomen is soft, nontender. IMPRESSION: Obstructive uropathy with purulent urethritis and cystitis. PLAN: Continue with IV fluids and antibiotics. He is doing well and will probably be able to go back to the long-term in the next few days. MMODL / IJN: [id number] /
--- NOTE | 2021-07-05 19:20 | PN ---
PROGRESS NOTE DATE OF SERVICE: 07/04/2021 CHIEF COMPLAINT: Septicemia secondary to purulent urethritis, cystitis and obstructive uropathy. HISTORY OF PRESENT ILLNESS: This gentleman continues to do well. He is not febrile and remains awake and alert. He is eating and antibiotics continue. PHYSICAL EXAM: Hydration and color good. Chest is clear. Cardiac exam is normal. Abdomen is soft, nontender. Quinones is in place. IMPRESSION: Septicemia secondary to obstructive uropathy and purulent urethritis. PLAN: Continue with IV antibiotics. He can probably go back to the custodial soon. MMODL / IJN: [id number] /
[2021-07-05] MEDS ORDERED: AMOXIC-POT CLAV 875-125MG 1 EACH TAB PO SCH (21:00)
--- NOTE | 2021-07-06 13:12 | MISC ---
MISCELLANOUS REPORT QUERY: Urinary tract infection due to Quinones catheter. JORGE / ROSELINEN: [id number] /
--- NOTE | 2021-07-06 13:12 | MISC ---
MISCELLANOUS REPORT QUERY: Sepsis confirmed. MMODL / IJN: [id number] /
== END 2021-07-05 15:07 | DRG 698 ==
LOC: EC 12:53 → EEVIPCON 12:53 → 5NMEDONC 17:29
PROVIDERS: ADMIT Family Medicine; ATTEND Family Medicine
DX: T83.511A Infection and inflammatory reaction due to indwelling urethral catheter, initial encounter (principal); A41.9 Sepsis, unspecified organism; B37.49 Other urogenital candidiasis; N17.9 Acute kidney failure, unspecified; G93.49 Other encephalopathy; E78.5 Hyperlipidemia, unspecified; E86.0 Dehydration; F01.50 Vascular dementia, unspecified severity, without behavioral disturbance, psychotic disturbance, mood disturbance, and anxiety; H91.10 Presbycusis, unspecified ear; I10 Essential (primary) hypertension; I25.10 Atherosclerotic heart disease of native coronary artery without angina pectoris; N13.9 Obstructive and reflux uropathy, unspecified; N21.0 Calculus in bladder; N21.1 Calculus in urethra; N30.90 Cystitis, unspecified without hematuria; N34.2 Other urethritis; Z80.1 Family history of malignant neoplasm of trachea, bronchus and lung; T83.091A Other mechanical complication of indwelling urethral catheter, initial encounter; Z20.822 Contact with and (suspected) exposure to COVID-19; Y84.6 Urinary catheterization as the cause of abnormal reaction of the patient, or of later complication, without mention of misadventure at the time of the procedure; Z79.82 Long term (current) use of aspirin; Z79.899 Other long term (current) drug therapy; Z82.49 Family history of ischemic heart disease and other diseases of the circulatory system; Z87.891 Personal history of nicotine dependence; I69.398 Other sequelae of cerebral infarction
CPT/HCPCS: 36415; 71045; 72192; 80053; 81001; 83605; 85025; 85610; 85730; 87040; 87077; 87086; 87186; 87635; 93005; 94640; 96365; 96366; 96375; 99285

== ENCOUNTER 2021-09-06 17:26 | Emergency (ER) | payer MEDICARE, OTHER ==
[2021-09-06 18:38] VITALS: RESP 16; TEMP 98.5
--- NOTE | 2021-09-06 18:44 | ED ---
Male Urogenital HPI - General Chief complaint: Urogenital Stated complaint: Hematuria Time Seen by Provider: 09/06/21 18:36 Source: EMS, RN notes reviewed Mode of arrival: EMS - History of Present Illness Initial comments: This is a pleasant 66-year-old male who arise from a local nursing facility for urinary retention. Apparently they are trying to replace the patient's chronic indwelling Quinnoes catheter and could not pass it. He then had some bleeding and has been unable to void since. The patient himself is actually complaining of no significant pain. Patient has a history of previous CVA, hypertension, hyperlipidemia, and BPH. Patient also has a remote history of acute renal failure. Patient denies any headache. No difficulty swallowing. No shortness breath or chest pain. No abdominal pain. No back pain. No fever or chills. No difficulty with bowel movements. No testicular pain. - Related Data Home Medications Medication Instructions Recorded Confirmed Atorvastatin [Lipitor] 10 mg PO HS@209904/14/20 09/06/21 Folic Acid 0.4 mg PO DAILY@89904/14/20 09/06/21 Ipratropium-Albuterol Nebulize 3 ml INHALATION RT-Q4H PRN 04/14/20 09/06/21 [Duoneb 0.5 mg-3 mg/3 ml Soln] Propranolol HCl 60 mg PO DAILY@89904/14/20 09/06/21 Thiamine HCl [Vitamin B-1] 300 mg PO DAILY@89904/14/20 09/06/21 amLODIPine [Norvasc] 10 mg PO DAILY@89904/14/20 09/06/21 ondansetron HCL [Zofran] 4 mg PO Q6H PRN 04/14/20 09/06/21 Acetaminophen Tab [Tylenol] 650 mg PO Q8H PRN 06/14/20 09/06/21 Aspirin 81 mg PO DAILY@89906/14/20 09/06/21 QUEtiapine [SEROquel] 25 mg PO TID@0900,1300,2100 12/31/20 09/06/21 QUEtiapine [SEROquel] 50 mg PO TID@0900,1300,2100 07/01/21 09/06/21 Previous Rx's Medication Instructions Recorded Cefdinir 300 mg PO Q12HR #14 cap 09/06/21 Allergies Allergy/AdvReac Type Severity Reaction Status Date / Time No Known Allergies Allergy Verified 09/06/21 19:01 Review of Systems ROS Statement: Those systems with pertinent positive or pertinent negative responses have been documented in the HPI. ROS Other: All systems not noted in ROS Statement are negative. Past Medical History Past Medical History: CVA/TIA, Hearing Disorder / Deafness, Hyperlipidemia, Hypertension, Prostate Disorder Additional Past Medical History / Comment(s): AMS changes/ischemic encephalopathy/vascular dementia/CPD/ASHD/presbycusis. He had a LP performed and was transferred to [facility]. Discharge diagnosis from [facility] list: severe generalized intracranial leukoencephalopathy/cerebral ventriculomegaly/cerebral atrophy/neurogenic dysphagia/UTI/urinary retention/constipation/suspected dysautonomally, acute encephalopathy. [facility] states they were also told uncontrolled HTN/hydrocephalus/advance dementia/uti. Other hx: 2012 CVA without residual, TELLER bilaterally/speak in R ear, occasional urinary incontinenc e/frequency, CKD, nephrolithiasis, BPH, occasional back pain. History of Any Multi-Drug Resistant Organisms: None Reported Past Surgical History: Appendectomy Additional Past Surgical History / Comment(s): colonoscopy Past Anesthesia/Blood Transfusion Reactions: No Reported Reaction Past Psychological History: No Psychological Hx Reported Smoking Status: Former smoker Past Alcohol Use History: None Reported Past Drug Use History: None Reported - Past Family History Mother Family Medical History: Dementia, Hypertension Father Family Medical History: Cancer Additional Family Medical History / Comment(s): Lung cancer. Father was a smoker. General Exam General appearance: alert, in no apparent distress Head exam: Present: atraumatic, normocephalic, normal inspection Eye exam: Present: normal appearance, PERRL, EOMI. Absent: scleral icterus, conjunctival injection, periorbital swelling ENT exam: Present: normal exam, mucous membranes moist Neck exam: Present: normal inspection. Absent: tenderness, meningismus, lymphadenopathy Respiratory exam: Present: normal lung sounds bilaterally. Absent: respiratory distress, wheezes, rales, rhonchi, stridor Cardiovascular Exam: Present: regular rate, normal rhythm, normal heart sounds. Absent: systolic murmur, diastolic murmur, rubs, gallop, clicks GI/Abdominal exam: Present: soft, normal bowel sounds. Absent: distended, tenderness, guarding, rebound, rigid Extremities exam: Present: normal inspection, full ROM, normal capillary refill. Absent: tenderness, pedal edema, joint swelling, calf tenderness Back exam: Present: normal inspection Neurological exam: Present: alert, CN II-XII intact, other (Patient very hard of hearing. Does not appear to be in any acute distress. Neurologically intact) Psychiatric exam: Present: normal affect, normal mood Skin exam: Present: warm, dry, intact, normal color. Absent: rash Course Vital Signs 09/06/21 09/06/21 17:42 22:00 Temperature 98.5 F Pulse Rate 78 65 Respiratory 16 16 Rate Blood Pressure 135/82 132/54 O2 Sat by Pulse 97 96 Oximetry Medical Decision Making - Medical Decision Making Patient presented with urinary retention secondary to having his chronic Quinones removed. We were able to pass a Quinones here. Patient's urinalysis did show evidence of infectious process. Urine culture was sent. I'm going to cover the patient with antibiotics. Was in no distress at discharge. He went after stable. Afebrile. Patient was told to return to the ER for any signs or symptoms worsen. Told to return immediately if any other problems arise. All questions answered. Treatment plan discussed. Patient in agreement Every effort has been made to ensure accuracy of this dictation. However, due to the limitations of electronic medical records and dictation devices, errors in charting still occur. - Lab Data Result diagrams: 09/06/21 19:28 09/06/21 19:18 Lab Results 09/06/21 09/06/21 09/06/21 Range/Units 19:18 19:18 19:18 WBC (3.8-10.6) k/uL RBC (4.30-5.90) m/uL Hgb (13.0-17.5) gm/dL Hct (39.0-53.0) % MCV (80.0-100.0) fL MCH (25.0-35.0) pg MCHC (31.0-37.0) g/dL RDW (11.5-15.5) % Plt Count (150-450) k/uL MPV Neutrophils % % Lymphocytes % % Monocytes % % Eosinophils % % Basophils % % Neutrophils # (1.3-7.7) k/uL Lymphocytes # (1.0-4.8) k/uL Monocytes # (0-1.0) k/uL Eosinophils # (0-0.7) k/uL Basophils # (0-0.2) k/uL PT 11.3 (9.0-12.0) sec INR 1.1 (<1.2) APTT 23.0 (22.0-30.0) sec Sodium 139 (137-145) mmol/L Potassium 4.4 (3.5-5.1) mmol/L Chloride 106 (98-107) mmol/L Carbon Dioxide 25 (22-30) mmol/L Anion Gap 8 mmol/L BUN 20 (9-20) mg/dL Creatinine 1.19 (0.66-1.25) mg/dL Est GFR (CKD-EPI)AfAm 72 (>60 ml/min/1.73 sqM) Est GFR (CKD-EPI)NonAf 63 (>60 ml/min/1.73 sqM) Glucose 100 H (74-99) mg/dL Calcium 9.1 (8.4-10.2) mg/dL Urine Color Red Urine Appearance Bloody (Clear) Urine RBC 59 H (0-5) /hpf Urine WBC 3 (0-5) /hpf Urine Bacteria Many H (None) /hpf 09/06/21 Range/Units 19:28 WBC 12.2 H (3.8-10.6) k/uL RBC 4.59 (4.30-5.90) m/uL Hgb 14.7 (13.0-17.5) gm/dL Hct 45.0 (39.0-53.0) % MCV 98.1 (80.0-100.0) fL MCH 32.0 (25.0-35.0) pg MCHC 32.6 (31.0-37.0) g/dL RDW 13.2 (11.5-15.5) % Plt Count 169 D (150-450) k/uL MPV 7.5 Neutrophils % 84 % Lymphocytes % 6 % Monocytes % 8 % Eosinophils % 2 % Basophils % 1 % Neutrophils # 10.2 H (1.3-7.7) k/uL Lymphocytes # 0.7 L (1.0-4.8) k/uL Monocytes # 1.0 (0-1.0) k/uL Eosinophils # 0.2 (0-0.7) k/uL Basophils # 0.1 (0-0.2) k/uL PT (9.0-12.0) sec INR (<1.2) APTT (22.0-30.0) sec Sodium (137-145) mmol/L Potassium (3.5-5.1) mmol/L Chloride (98-107) mmol/L Carbon Dioxide (22-30) mmol/L Anion Gap mmol/L BUN (9-20) mg/dL Creatinine (0.66-1.25) mg/dL Est GFR (CKD-EPI)AfAm (>60 ml/min/1.73 sqM) Est GFR (CKD-EPI)NonAf (>60 ml/min/1.73 sqM) Glucose (74-99) mg/dL Calcium (8.4-10.2) mg/dL Urine Color Urine Appearance (Clear) Urine RBC (0-5) /hpf Urine WBC (0-5) /hpf Urine Bacteria (None) /hpf Disposition Clinical Impression: Urinary retention, Quinones catheter problem, Urinary tract infection Disposition: HOME SELF-CARE Condition: Stable Instructions (If sedation given, give patient instructions): Urinary Retention in Men (ED), Urinary Tract Infection in Men (ED), Quinones Catheter Placement and Care (ED) Additional Instructions: Make sure the patient has his urine rechecked in a few days by the primary care physician. Continue the antibiotics until the urine culture is obtained. Follow-up with the urologist or the primary care physician within 48 hours. Follow-up with your regular physician as directed. Return to the ER immediately if any symptoms worsen, new symptoms arise, or any other problems develop. Prescriptions: Cefdinir 300 mg PO Q12HR #14 cap Is patient prescribed a controlled substance at d/c from ED?: No Referrals: Khanh Sosa MD [Primary Care Provider] - 1-2 days Time of Disposition: 21:31
[2021-09-06 19:54] LABS: Calcium 9.1 mg/dL (8.4-10.2); Potassium 4.4 mmol/L (3.5-5.1)
[2021-09-06 19:57] LABS: INR 1.1 (<1.2)
[2021-09-06 19:58] LABS: Prothrombin Time 11.3 sec (9.0-12.0)
[2021-09-06 20:01] LABS: Basophils # (A) 0.1 k/uL (0-0.2); Basophils % (A) 1 %; Eosinophils # (A) 0.2 k/uL (0-0.7); Eosinophils % (A) 2 %; HGB 14.7 gm/dL (13.0-17.5); Lymphocytes # (A) 0.7 k/uL (1.0-4.8); Lymphocytes % (A) 6 %; MCHC 32.6 g/dL (31.0-37.0); MCV 98.1 fL (80.0-100.0); Mean Platelet Volume 7.5; Monocytes % (A) 8 %; Neutrophils # (A) 10.2 k/uL (1.3-7.7); Neutrophils % (A) 84 %; RBC 4.59 m/uL (4.30-5.90); RDW 13.2 % (11.5-15.5); WBC 12.2 k/uL (3.8-10.6)
[2021-09-06 20:05] LABS: Bacteria,Urine Many /hpf; RBC,Urine 59 /hpf (0-5); WBC,Urine 3 /hpf (0-5)
[2021-09-06 20:07] LABS: Platelet Count 169 k/uL (150-450)
[2021-09-06 20:10] LABS: Appearance,Urine Bloody (Clear)
[2021-09-06 20:11] LABS: Color,Urine Red
[2021-09-06] MEDS ORDERED: CEFDINIR 300 MG CAP PO STA (21:29)
[2021-09-06 22:03] VITALS: BP 132/54; PULSE 65
== END 2021-09-06 22:35 | disposition home or self-care (01) ==
LOC: EC 17:26
DX: N39.0 Urinary tract infection, site not specified (principal); R31.9 Hematuria, unspecified; T83.098A Other mechanical complication of other urinary catheter, initial encounter; I10 Essential (primary) hypertension; E78.5 Hyperlipidemia, unspecified; Z87.891 Personal history of nicotine dependence; Z79.899 Other long term (current) drug therapy
CPT/HCPCS: 36415; 80048; 81001; 85025; 85610; 85730; 99283

== ENCOUNTER 2021-10-01 09:03 | Observation (INO) | payer MEDICARE, OTHER ==
[2021-10-01] MEDS ORDERED: SODIUM CHLORIDE 0.9% 1,000 ML IV ONE (09:40)
[2021-10-01 09:57] LABS: Basophils # (A) 0.1 k/uL (0-0.2); Basophils % (A) 1 %; Eosinophils # (A) 0.2 k/uL (0-0.7); Eosinophils % (A) 3 %; HCT 45.2 % (39.0-53.0); Lymphocytes # (A) 1.8 k/uL (1.0-4.8); Lymphocytes % (A) 21 %; MCH 32.7 pg (25.0-35.0); MCHC 33.1 g/dL (31.0-37.0); MCV 98.6 fL (80.0-100.0); Mean Platelet Volume 8.1; Monocytes # (A) 0.5 k/uL (0-1.0); Monocytes % (A) 6 %; Neutrophils # (A) 5.7 k/uL (1.3-7.7); Neutrophils % (A) 68 %; Platelet Count 188 k/uL (150-450); RBC 4.59 m/uL (4.30-5.90); RDW 13.5 % (11.5-15.5); WBC 8.3 k/uL (3.8-10.6)
[2021-10-01 09:58] LABS: Glucose,Whole Blood 96 mg/dL (75-99)
[2021-10-01 10:03] LABS: Lactic Acid, Venous 1.6 mmol/L (0.7-2.0)
[2021-10-01 10:08] LABS: Partial Thromboplastin Time 22.1 sec (22.0-30.0)
--- NOTE | 2021-10-01 10:15 | ED ---
General Adult HPI - General Chief complaint: Fall Stated complaint: Fall Time Seen by Provider: 10/01/21 09:13 Source: EMS, RN notes reviewed, old records reviewed Mode of arrival: EMS Limitations: language barrier, altered mental status - History of Present Illness Initial comments: Patient is a 66-year-old male with past medical history remarkable for dementia, hypertension, prostate disorder who presents emergency Department after being sent from his fdc over concern for possible injury. I think he may have a bump on the side. He is having some mild worsening gait, as he seems unsteady her EMS. Patient does have a chronically catheter in place. He otherwise is also hard of hearing. Otherwise has been acting normally. Patient denies any acute complaints at this time. - Related Data Home Medications Medication Instructions Recorded Confirmed Atorvastatin [Lipitor] 10 mg PO HS 04/14/20 10/01/21 Folic Acid 0.4 mg PO DAILY 04/14/20 10/01/21 Ipratropium-Albuterol Nebulize 3 ml INHALATION RT-Q4H PRN 04/14/20 10/01/21 [Duoneb 0.5 mg-3 mg/3 ml Soln] Propranolol HCl 60 mg PO DAILY 04/14/20 10/01/21 Thiamine HCl [Vitamin B-1] 300 mg PO DAILY 04/14/20 10/01/21 amLODIPine [Norvasc] 10 mg PO DAILY 04/14/20 10/01/21 ondansetron HCL [Zofran] 4 mg PO Q6H PRN 04/14/20 10/01/21 Acetaminophen Tab [Tylenol] 650 mg PO Q8H PRN 06/14/20 10/01/21 Aspirin 81 mg PO DAILY 06/14/20 10/01/21 QUEtiapine [SEROquel] 25 mg PO TID@0900,1300,2100 12/31/20 10/01/21 QUEtiapine [SEROquel] 50 mg PO TID@0900,1300,2100 07/01/21 10/01/21 Allergies Allergy/AdvReac Type Severity Reaction Status Date / Time No Known Allergies Allergy Verified 10/01/21 11:29 Review of Systems ROS Statement: Those systems with pertinent positive or pertinent negative responses have been documented in the HPI. Review of Systems: CONST: Denies fever EYES: Denies blurry vision ENT: Denies nasal congestion C/V: Denies Chest pain RESP: Denies shortness of breath GI: Denies abdominal pain : Denies dysuria SKIN: Denies rash. MSK: Denies joint pain. NEURO: Denies headache ROS Other: All systems not noted in ROS Statement are negative. Past Medical History Past Medical History: CVA/TIA, Hearing Disorder / Deafness, Hyperlipidemia, Hypertension, Prostate Disorder Additional Past Medical History / Comment(s): AMS changes/ischemic encephalopathy/vascular dementia/CPD/ASHD/presbycusis. He had a LP performed and was transferred to [facility]. Discharge diagnosis from [facility] list: severe generalized intracranial leukoencephalopathy/cerebral ventriculomegaly/cerebral atrophy/neurogenic dysphagia/UTI/urinary retention/constipation/suspected dysautonomally, acute encephalopathy. [facility] states they were also told uncontrolled HTN/hydrocephalus/advance dementia/uti. Other hx: 2013 CVA without residual, HO-CHUNK bilaterally/speak in R ear, occasional urinary incontinence/frequency, CKD, nephrolithiasis, BPH, occasional back pain. History of Any Multi-Drug Resistant Organisms: None Reported Past Surgical History: Appendectomy Additional Past Surgical History / Comment(s): colonoscopy Past Anesthesia/Blood Transfusion Reactions: No Reported Reaction Past Psychological History: No Psychological Hx Reported Smoking Status: Former smoker Past Alcohol Use History: None Reported Past Drug Use History: None Reported - Past Family History Mother Family Medical History: Dementia, Hypertension Father Family Medical History: Cancer Additional Family Medical History / Comment(s): Lung cancer. Father was a smoker. General Exam - General Exam Comments Initial Comments: General: Appears in no acute distress. HEAD: Normal with no signs of head trauma. EYES: PERRLA, EOMI, conjunctiva normal, no discharge. Pupils are 3 mm and equal bilaterally. ENT: Hearing grossly intact, normal oropharynx. RESPIRATORY: Clear breath sounds bilaterally. No wheezes, rales, or rhonchi. C/V: Regular rate and rhythm. S1 and S2 auscultated, no edema, peripheral pulses 2+ and intact throughout ABD: Abd is soft, nontender, nondistended EXT: Normal range of motion, no obvious deformity SKIN: No rashes or lesions observed on exposed skin. NEURO: Alert and oriented x 2-3. Cranial nerves II-XII intact. No focal sensory or strength deficits. NIH is 0. GCS is 15. Patient is hard of hearing, however does appear to be at his baseline per EMS Limitations: language barrier, altered mental status Course Vital Signs 10/01/21 09:08 Temperature 97.8 F Pulse Rate 74 Respiratory 16 Rate Blood Pressure 148/75 O2 Sat by Pulse 97 Oximetry Medical Decision Making - Medical Decision Making Based on the patient's presentation and physical exam, I'm concerned for possible fall. Cerebellar function appears to be within normal limits at this time for the patient. However patient does have dark urine as well as a chronically catheter. We will obtain a urinalysis in addition to additional altered mental status laboratory studies. This appeared to be mentally at his baseline at this time. He is a history of dementia. Patient also has a guardian who will be contacted and updated results return. EKG showed no signs of acute ischemia.Patient's chest x-ray reveals no acute cardiopulmonary process. CT brain reveals no acute intracranial process. There is no hemorrhage or midline shift. There is severe atrophy as well as chronic disease. No significant change from prior CTs. Laboratory studies were remarkable for a negative troponin. UDS is positive for TCAs. Urinalysis shows urinary tract infection. Remainder of the labs are unremarkable.I requested mancia catheter be replaced. On reevaluation, did update the patient. I would like to admit him to the hospital for antibiotics. Patient was in agreement with this plan. I discussed with the patient's PCP, Dr. Sosa who accepted the patient. Patient was admitted in stable condition. Patient's power of assistant district attorney was consulted and guardian, and is splinting 3 individuals. He was able to contact one that was out of state, however patient's guardian Mariluz Villalpando presented to the emergency department and I updated her and person. Her phone number is home: [phone]. . I answered all questions that she had. She did request a urology consult to evaluate the patient's Mancia catheter she is new to guardianship and is uncertain if the patient still requires it. I agreed to place his consult. They can evaluate the patient the morning. I updated her on the negative workup for the patient. He remained stable and within normal set this time. Vital signs have remained stable and within normal limits since he arrived. Patient was therefore admitted in stable condition. - Lab Data Result diagrams: 10/01/21 09:47 10/01/21 11:00 Lab Results 10/01/21 10/01/21 10/01/21 Range/Units 09:47 09:47 09:47 WBC 8.3 (3.8-10.6) k/uL RBC 4.59 (4.30-5.90) m/uL Hgb 15.0 (13.0-17.5) gm/dL Hct 45.2 (39.0-53.0) % MCV 98.6 (80.0-100.0) fL MCH 32.7 (25.0-35.0) pg MCHC 33.1 (31.0-37.0) g/dL RDW 13.5 (11.5-15.5) % Plt Count 188 (150-450) k/uL MPV 8.1 Neutrophils % 68 % Lymphocytes % 21 % Monocytes % 6 % Eosinophils % 3 % Basophils % 1 % Neutrophils # 5.7 (1.3-7.7) k/uL Lymphocytes # 1.8 (1.0-4.8) k/uL Monocytes # 0.5 (0-1.0) k/uL Eosinophils # 0.2 (0-0.7) k/uL Basophils # 0.1 (0-0.2) k/uL PT 11.0 (9.0-12.0) sec INR 1.0 (<1.2) APTT 22.1 (22.0-30.0) sec Sodium (137-145) mmol/L Potassium (3.5-5.1) mmol/L Chloride (98-107) mmol/L Carbon Dioxide (22-30) mmol/L Anion Gap mmol/L BUN (9-20) mg/dL Creatinine (0.66-1.25) mg/dL Est GFR (CKD-EPI)AfAm (>60 ml/min/1.73 sqM) Est GFR (CKD-EPI)NonAf (>60 ml/min/1.73 sqM) Glucose (74-99) mg/dL POC Glucose (mg/dL) (75-99) mg/dL POC Glu Crossing Guard ID Plasma Lactic Acid Kojo (0.7-2.0) mmol/L Calcium (8.4-10.2) mg/dL Total Bilirubin (0.2-1.3) mg/dL AST (17-59) U/L ALT (4-49) U/L Alkaline Phosphatase (38-126) U/L Ammonia (<30) umol/L Troponin I <0.012 (0.000-0.034) ng/mL Total Protein (6.3-8.2) g/dL Albumin (3.5-5.0) g/dL Urine Color Urine Appearance (Clear) Urine pH (5.0-8.0) Ur Specific [place] (1.001-1.035) Urine Protein (Negative) Urine Glucose (UA) (Negative) Urine Ketones (Negative) Urine Blood (Negative) Urine Nitrite (Negative) Urine Bilirubin (Negative) Urine Urobilinogen (<2.0) mg/dL Ur Leukocyte Esterase (Negative) Urine RBC (0-5) /hpf Urine WBC (0-5) /hpf Urine WBC Clumps (None) /hpf Amorphous Sediment (None) /hpf Urine Bacteria (None) /hpf Urine Opiates Screen (NotDetected) Ur Oxycodone Screen (NotDetected) Urine Methadone Screen (NotDetected) Ur Propoxyphene Screen (NotDetected) Ur Barbiturates Screen (NotDetected) U Tricyclic Antidepress (NotDetected) Ur Phencyclidine Scrn (NotDetected) Ur Amphetamines Screen (NotDetected) U Methamphetamines Scrn (NotDetected) U Benzodiazepines Scrn (NotDetected) Urine Cocaine Screen (NotDetected) U Marijuana (THC) Screen (NotDetected) Serum Alcohol mg/dL 10/01/21 10/01/21 10/01/21 Range/Units 09:47 09:56 10:09 WBC (3.8-10.6) k/uL RBC (4.30-5.90) m/uL Hgb (13.0-17.5) gm/dL Hct (39.0-53.0) % MCV (80.0-100.0) fL MCH (25.0-35.0) pg MCHC (31.0-37.0) g/dL RDW (11.5-15.5) % Plt Count (150-450) k/uL MPV Neutrophils % % Lymphocytes % % Monocytes % % Eosinophils % % Basophils % % Neutrophils # (1.3-7.7) k/uL Lymphocytes # (1.0-4.8) k/uL Monocytes # (0-1.0) k/uL Eosinophils # (0-0.7) k/uL Basophils # (0-0.2) k/uL PT (9.0-12.0) sec INR (<1.2) APTT (22.0-30.0) sec Sodium (137-145) mmol/L Potassium (3.5-5.1) mmol/L Chloride (98-107) mmol/L Carbon Dioxide (22-30) mmol/L Anion Gap mmol/L BUN (9-20) mg/dL Creatinine (0.66-1.25) mg/dL Est GFR (CKD-EPI)AfAm (>60 ml/min/1.73 sqM) Est GFR (CKD-EPI)NonAf (>60 ml/min/1.73 sqM) Glucose (74-99) mg/dL POC Glucose (mg/dL) 96 (75-99) mg/dL POC Glu Crossing Guard ID Effie Lemus Plasma Lactic Acid Kojo 1.6 (0.7-2.0) mmol/L Calcium (8.4-10.2) mg/dL Total Bilirubin (0.2-1.3) mg/dL AST (17-59) U/L ALT (4-49) U/L Alkaline Phosphatase (38-126) U/L Ammonia <9 (<30) umol/L Troponin I (0.000-0.034) ng/mL Total Protein (6.3-8.2) g/dL Albumin (3.5-5.0) g/dL Urine Color Yellow Urine Appearance Turbid (Clear) Urine pH 7.5 (5.0-8.0) Ur Specific [place] 1.016 (1.001-1.035) Urine Protein Trace H (Negative) Urine Glucose (UA) Negative (Negative) Urine Ketones Negative (Negative) Urine Blood Moderate H (Negative) Urine Nitrite Positive (Negative) Urine Bilirubin Negative (Negative) Urine Urobilinogen <2.0 (<2.0) mg/dL Ur Leukocyte Esterase Large H (Negative) Urine RBC >182 H (0-5) /hpf Urine WBC >182 H (0-5) /hpf Urine WBC Clumps Few H (None) /hpf Amorphous Sediment Few H (None) /hpf Urine Bacteria Occasional H (None) /hpf Urine Opiates Screen Not Detected (NotDetected) Ur Oxycodone Screen Not Detected (NotDetected) Urine Methadone Screen Not Detected (NotDetected) Ur Propoxyphene Screen Not Detected (NotDetected) Ur Barbiturates Screen Not Detected (NotDetected) U Tricyclic Antidepress Detected H (NotDetected) Ur Phencyclidine Scrn Not Detected (NotDetected) Ur Amphetamines Screen Not Detected (NotDetected) U Methamphetamines Scrn Not Detected (NotDetected) U Benzodiazepines Scrn Not Detected (NotDetected) Urine Cocaine Screen Not Detected (NotDetected) U Marijuana (THC) Screen Not Detected (NotDetected) Serum Alcohol mg/dL 10/01/21 Range/Units 11:00 WBC (3.8-10.6) k/uL RBC (4.30-5.90) m/uL Hgb (13.0-17.5) gm/dL Hct (39.0-53.0) % MCV (80.0-100.0) fL MCH (25.0-35.0) pg MCHC (31.0-37.0) g/dL RDW (11.5-15.5) % Plt Count (150-450) k/uL MPV Neutrophils % % Lymphocytes % % Monocytes % % Eosinophils % % Basophils % % Neutrophils # (1.3-7.7) k/uL Lymphocytes # (1.0-4.8) k/uL Monocytes # (0-1.0) k/uL Eosinophils # (0-0.7) k/uL Basophils # (0-0.2) k/uL PT (9.0-12.0) sec INR (<1.2) APTT (22.0-30.0) sec Sodium 139 (137-145) mmol/L Potassium 4.7 (3.5-5.1) mmol/L Chloride 107 (98-107) mmol/L Carbon Dioxide 25 (22-30) mmol/L Anion Gap 7 mmol/L BUN 19 (9-20) mg/dL Creatinine 1.17 (0.66-1.25) mg/dL Est GFR (CKD-EPI)AfAm 74 (>60 ml/min/1.73 sqM) Est GFR (CKD-EPI)NonAf 64 (>60 ml/min/1.73 sqM) Glucose 108 H (74-99) mg/dL POC Glucose (mg/dL) (75-99) mg/dL POC Glu Crossing Guard ID Plasma Lactic Acid Kojo (0.7-2.0) mmol/L Calcium 9.2 (8.4-10.2) mg/dL Total Bilirubin 0.7 (0.2-1.3) mg/dL AST 19 (17-59) U/L ALT 16 (4-49) U/L Alkaline Phosphatase 56 (38-126) U/L Ammonia (<30) umol/L Troponin I (0.000-0.034) ng/mL Total Protein 7.5 (6.3-8.2) g/dL Albumin 4.0 (3.5-5.0) g/dL Urine Color Urine Appearance (Clear) Urine pH (5.0-8.0) Ur Specific [place] (1.001-1.035) Urine Protein (Negative) Urine Glucose (UA) (Negative) Urine Ketones (Negative) Urine Blood (Negative) Urine Nitrite (Negative) Urine Bilirubin (Negative) Urine Urobilinogen (<2.0) mg/dL Ur Leukocyte Esterase (Negative) Urine RBC (0-5) /hpf Urine WBC (0-5) /hpf Urine WBC Clumps (None) /hpf Amorphous Sediment (None) /hpf Urine Bacteria (None) /hpf Urine Opiates Screen (NotDetected) Ur Oxycodone Screen (NotDetected) Urine Methadone Screen (NotDetected) Ur Propoxyphene Screen (NotDetected) Ur Barbiturates Screen (NotDetected) U Tricyclic Antidepress (NotDetected) Ur Phencyclidine Scrn (NotDetected) Ur Amphetamines Screen (NotDetected) U Methamphetamines Scrn (NotDetected) U Benzodiazepines Scrn (NotDetected) Urine Cocaine Screen (NotDetected) U Marijuana (THC) Screen (NotDetected) Serum Alcohol <10 mg/dL - EKG Data -: EKG Interpreted by Me EKG Comments: 12-lead Electrocardiogram Interpretation Note EKG was reviewed and interpreted by myself. 12-lead ECG performed at 0938 is interpreted by me as revealing normal sinus rhythm at a rate of 66 beats per minute. [place] is normal. SD interval is 210 ms, QRS duration is 81 ms, QTc is 370 ms.. There were no ST or T wave abnormalities to suggest myocardial ischemia or injury. R wave progression across the precordium was satisfactory. By my interpretation this EKG is non-diagnostic for acute ischemia. Disposition Clinical Impression: UTI (urinary tract infection), AMS (altered mental status), History of dementia, Mancia catheter in place Disposition: ADMITTED IP TO THIS HOSP Condition: Stable
[2021-10-01 10:26] LABS: Amorphous Sediment,Urine Few /hpf; Appearance,Urine Turbid (Clear); Bacteria,Urine Occasional /hpf; Bilirubin,Urine Negative (Negative); Blood,Urine Moderate (Negative); Color,Urine Yellow; Glucose,Urine (UA) Negative (Negative); Ketones,Urine Negative (Negative); Leukocyte Esterase,Urine Large (Negative); Nitrite,Urine Positive (Negative); PH, Urine 7.5 (5.0-8.0); Protein,Urine Trace (Negative); RBC,Urine >182 /hpf (0-5); Specific Gravity,Urine 1.016 (1.001-1.035); Urobilinogen,Urine <2.0 mg/dL (<2.0); WBC,Urine >182 /hpf (0-5)
--- NOTE | 2021-10-01 10:55 | CT ---
EXAMINATION TYPE: CT brain wo con DATE OF EXAM: 10/01/2021 HISTORY: AMS CT DLP: 1177.4 mGycm. Automated Exposure Control for Dose Reduction was Utilized. TECHNIQUE: CT scan of the head is performed without contrast. COMPARISON: CT brain April 14, 2020. FINDINGS: There is no acute intracranial hemorrhage or midline shift identified. There is mild-to-m oderate diffuse ventricular and sulcal prominence redemonstrated. Degree of ventricular dilatation re robert more prominent in degree of sulcal effacement. Fourth ventricle is not dilated. There is marked low-attenuation in the deep and periventricular white matter redemonstrated. Soft tissue density miguel ateral external peristalsis but reflects cerumen, correlate clinically with direct visual examination . The globes are intact and the visualized sinuses are clear. IMPRESSION: No acute intracranial hemorrhage or midline shift. There is mild to moderate diffuse ce rebral atrophy and severe nonspecific white matter changes favored product of chronic small vessel is chemic change in patient of this age. Possible mild to moderate underlying normal pressure hydroceph alus. No significant change from prior CT.
--- NOTE | 2021-10-01 10:57 | XR ---
EXAMINATION TYPE: XR chest 2V DATE OF EXAM: 10/01/2021 COMPARISON: X-ray dated 07/01/2021 HISTORY: Altered mental status TECHNIQUE: Frontal and lateral views of the chest are obtained. FINDINGS: Increased density of the lateral aspects of the midlung zones, likely artifactual from the overlying prominent chest wall soft tissue. Grossly unremarkable lungs otherwise. No sizable pleural effusion or definite pneumothorax. Slightly increased cardiac transverse diameter. Osteopenia. IMPRESSION: No definite acute pulmonary abnormality identified.
[2021-10-01 11:18] LABS: Amphetamine Screen,Urine Not Detected (NotDetected); Barbiturate Screen,Urine Not Detected (NotDetected); Benzodiazepines Screen,Urine Not Detected (NotDetected); Cocaine Screen,Urine Not Detected (NotDetected); Methadone Screen, Urine Not Detected (NotDetected); Opiate Screen,Urine Not Detected (NotDetected); Oxycodone Screen, Urine Not Detected (NotDetected); Phencyclidine Screen,Urine Not Detected (NotDetected); Tricyclic Antidepressant,Urine Detected (NotDetected); Urn Cannabinoid Scrn Not Detected (NotDetected)
[2021-10-01] MEDS ORDERED: SODIUM CHLORIDE 0.9% 1,000 ML IV STA (11:25)
[2021-10-01 11:39] LABS: ALT 16 U/L (4-49); AST 19 U/L (17-59); African American GFR (CKD) 74 (>60 ml/min/1.73 sqM); Alcohol <10 mg/dL; Alkaline Phosphatase 56 U/L (38-126); Anion Gap 7 mmol/L; Blood Urea Nitrogen 19 mg/dL (9-20); Calcium 9.2 mg/dL (8.4-10.2); Carbon Dioxide 25 mmol/L (22-30); Chloride 107 mmol/L (98-107); Glucose 108 mg/dL (74-99); Non-African American GFR(CKD) 64 (>60 ml/min/1.73 sqM); Potassium 4.7 mmol/L (3.5-5.1); Sodium 139 mmol/L (137-145); Total Bilirubin 0.7 mg/dL (0.2-1.3); Total Protein 7.5 g/dL (6.3-8.2)
[2021-10-01] MEDS ORDERED: SODIUM CHLORIDE 0.9% 1,000 ML IV SCH (11:45)
[2021-10-01] MEDS ORDERED: NALOXONE 0.4 MG/ML 1 ML VIAL IV PRN (11:45)
[2021-10-01] MEDS ORDERED: ONDANSETRON 4 MG TAB PO PRN (15:56)
--- NOTE | 2021-10-01 17:04 | HP ---
HISTORY AND PHYSICAL CHIEF COMPLAINT: Agitation and mental status changes. HISTORY OF PRESENT ILLNESS: This is another admission for this gentleman who comes from [facility]. He is there because of vascular dementia. He has had prior CVAs. He has a history of malignant hypertension. He is deaf. Apparently he was noted to be more lethargic than usual and was sent to the emergency room. He has an indwelling Quinones and frequently develops urethritis with systemic signs and symptoms. [facility]. REVIEW OF SYSTEMS: Unobtainable. Past medical history, family history, and personal and social histories are otherwise unremarkable or unchanged from his admission earlier this year. PHYSICAL EXAMINATION: Blood pressure is 142/90 with a pulse of 88, respirations of 35, and he had a temperature 99.2. In general he appeared to be well developed, well nourished, in no acute distress. He was slightly dehydrated. Head, ears, eyes, nose, mouth and throat were normal. Neck was supple. Neck veins were not distended. Chest was clear to auscultation and percussion. Cardiac exam demonstrated normal sinus rhythm. The abdomen was soft and nontender without any masses. Bowel sounds were present. Extremities were normal. Neurologically he was intact in terms of his sensorimotor exam, but he was demented. He had no focal sensorimotor findings. He is admitted to the hospital with the diagnoses: 1. Mental status changes. 2. Cystitis. 3. Urethritis. 4. Previous cerebrovascular accident. 5. Atherosclerotic central nervous system disease. 6. History of hypertension. PLAN: 1. Bedrest. 2. IV fluids. 3. IV antibiotics. MMODL / ROSELINEN: [id number] /
[2021-10-01] MEDS: QUEtiapine 25 MG TAB PO SCH (20:55)
[2021-10-01] MEDS: ATORVASTATIN 10 MG TAB PO SCH (20:55)
[2021-10-01] MEDS ORDERED: QUEtiapine 50 MG TAB PO SCH (21:00)
--- NOTE | 2021-10-02 07:43 | P.GSCN ---
History of Present Illness Consult date: 10/01/21 History of present illness: 66 yo male, resident of [facility] with vascular dementia. Admitted to hospital because of worsening mental status. Apparently the catheter is chronic. we have been asked to assess its status. I donot know when or why the catheter was placed. The patient is deaf and can give me no history. Review of Systems ROS unobtainable: due to mental status Past Medical History Past Medical History: CVA/TIA, Hearing Disorder / Deafness, Hyperlipidemia, Hyp ertension, Prostate Disorder Additional Past Medical History / Comment(s): AMS changes/ischemic encephalopathy/vascular dementia/CPD/ASHD/presbycusis. He had a LP performed a nd was transferred to [facility]. Discharge diagnosis from [facility] list: severe generalized intracranial leukoencephalopathy/cerebral ventriculomegaly/cerebral atrophy/neurogenic dysphagia/UTI/urinary retention/constipation/suspected dysautonomally, acute encephalopathy. [facility] states they were also told uncontr olled HTN/hydrocephalus/advance dementia/uti. Other hx: 2013 CVA without residual, [place] bilaterally/speak in R ear, occasional urinary incontinence/frequency, CKD, nephrolithiasis, BPH, occasional back pain. History of Any Multi-Drug Resistant Organisms: None Reported Past Surgical History: Appendectomy Additional Past Surgical History / Comment(s): colonoscopy Past Anesthesia/Blood Transfusion Reactions: No Reported Reaction Past Psychological History: No Psychological Hx Reported Smoking Status: Former smoker Past Alcohol Use History: None Reported Past Drug Use History: None Reported - Past Family History Mother Family Medical History: Dementia, Hypertension Father Family Medical History: Cancer Additional Family Medical History / Comment(s): Lung cancer. Father was a marysol. Medications and Allergies Home Medications Medication Instructions Recorded Confirmed Type Atorvastatin [Lipitor] 10 mg PO HS 04/14/20 10/01/21 History Folic Acid 0.4 mg PO DAILY 04/14/20 10/01/21 History Ipratropium-Albuterol Nebulize 3 ml INHALATION RT-Q4H PRN 04/14/20 10/01/21 History [Duoneb 0.5 mg-3 mg/3 ml Soln] Propranolol HCl 60 mg PO DAILY 04/14/20 10/01/21 History Thiamine HCl [Vitamin B-1] 300 mg PO DAILY 04/14/20 10/01/21 History amLODIPine [Norvasc] 10 mg PO DAILY 04/14/20 10/01/21 History ondansetron HCL [Zofran] 4 mg PO Q6H PRN 04/14/20 10/01/21 History Acetaminophen Tab [Tylenol] 650 mg PO Q8H PRN 06/14/20 10/01/21 History Aspirin 81 mg PO DAILY 06/14/20 10/01/21 History QUEtiapine [SEROquel] 25 mg PO TID@0900,1300,2100 12/31/20 10/01/21 History QUEtiapine [SEROquel] 50 mg PO TID@0900,1300,2100 07/01/21 10/01/21 History Allergies Allergy/AdvReac Type Severity Reaction Status Date / Time No Known Allergies Allergy Verified 10/01/21 11:29 Surgical - Exam Vital Signs Temp Pulse Resp BP Pulse Ox 97.8 F 74 16 148/75 97 10/01/21 09:08 10/01/21 09:08 10/01/21 09:08 10/01/21 09:08 10/01/21 09:08 - General well developed, well nourished, no distress - Eyes PERRL - ENT decreased hearing - Neck trachea midline - Respiratory normal expansion, normal respiratory effort - Cardiovascular Rhythm: regular - Abdomen Abdomen: soft, non tender - Genitourinary Indwelling catheter. Results - Labs 10/01/21 09:47 10/01/21 11:00 Abnormal Lab Results - Last 24 Hours (Table) 10/01/21 10/01/21 Range/Units 10:09 11:00 Glucose 108 H (74-99) mg/dL Urine Protein Trace H (Negative) Urine Blood Moderate H (Negative) Ur Leukocyte Esterase Large H (Negative) Urine RBC >182 H (0-5) /hpf Urine WBC >182 H (0-5) /hpf Urine WBC Clumps Few H (None) /hpf Amorphous Sediment Few H (None) /hpf Urine Bacteria Occasional H (None) /hpf U Tricyclic Antidepress Detected H (NotDetected) Microbiology - Last 24 Hours (Table) 10/01/21 10:09 Urine Culture - Preliminary Urine,Voided Diabetes panel 10/01/21 Range/Units 11:00 Sodium 139 (137-145) mmol/L Potassium 4.7 (3.5-5.1) mmol/L Chloride 107 (98-107) mmol/L Carbon Dioxide 25 (22-30) mmol/L BUN 19 (9-20) mg/dL Creatinine 1.17 (0.66-1.25) mg/dL Glucose 108 H (74-99) mg/dL Calcium 9.2 (8.4-10.2) mg/dL AST 19 (17-59) U/L ALT 16 (4-49) U/L Alkaline Phosphatase 56 (38-126) U/L Total Protein 7.5 (6.3-8.2) g/dL Albumin 4.0 (3.5-5.0) g/dL Calcium panel 10/01/21 Range/Units 11:00 Calcium 9.2 (8.4-10.2) mg/dL Albumin 4.0 (3.5-5.0) g/dL Pituitary panel 10/01/21 Range/Units 11:00 Sodium 139 (137-145) mmol/L Potassium 4.7 (3.5-5.1) mmol/L Chloride 107 (98-107) mmol/L Carbon Dioxide 25 (22-30) mmol/L BUN 19 (9-20) mg/dL Creatinine 1.17 (0.66-1.25) mg/dL Glucose 108 H (74-99) mg/dL Calcium 9.2 (8.4-10.2) mg/dL Adrenal panel 10/01/21 Range/Units 11:00 Sodium 139 (137-145) mmol/L Potassium 4.7 (3.5-5.1) mmol/L Chloride 107 (98-107) mmol/L Carbon Dioxide 25 (22-30) mmol/L BUN 19 (9-20) mg/dL Creatinine 1.17 (0.66-1.25) mg/dL Glucose 108 H (74-99) mg/dL Calcium 9.2 (8.4-10.2) mg/dL Total Bilirubin 0.7 (0.2-1.3) mg/dL AST 19 (17-59) U/L ALT 16 (4-49) U/L Alkaline Phosphatase 56 (38-126) U/L Total Protein 7.5 (6.3-8.2) g/dL Albumin 4.0 (3.5-5.0) g/dL Assessment and Plan Assessment: Impression: vascular dementia, chronic indwelling catheter for indeterminate reason. Recommendations: Given I can get no history from him and there is no other history of the chart I do not know why the catheter is in. The patient's legal guardian is questioning whether we can remove the catheter. I have no problem attempting this during the hospitalization to see if he can void. I will leave that up to the medical doctors based on the rest of his medical status.
[2021-10-02 09:12] LABS: Basophils # (A) 0.05 X 10*3/uL (0.00-0.10); Basophils % (A) 0.6 %; Eosinophils % (A) 3.6 %; HCT 41.4 % (39.6-50.0); HGB 13.5 g/dL (13.0-17.0); Immature Grans, Automated 0.5 %; Lymphocytes # (A) 2.31 X 10*3/uL (0.90-5.00); Lymphocytes % (A) 27.9 %; MCH 31.5 pg (27.0-32.0); MCHC 32.6 g/dL (32.0-37.0); MCV 96.7 fL (80.0-97.0); Mean Platelet Volume 10.1 fL (9.5-12.2); Monocytes # (A) 0.64 X 10*3/uL (0.20-1.00); Monocytes % (A) 7.7 %; NRBC Per 100 WBC 0 /100 WBCS (0.0-0.0); Neutrophils # (A) 4.94 X 10*3/uL (1.80-7.70); Neutrophils % (A) 59.7 %; Platelet Count 189 X 10*3/uL (140-440); RBC 4.28 X 10*6/uL (4.40-5.60); RDW 13.3 % (11.5-14.5); WBC 8.28 X 10*3/uL (4.50-10.00)
[2021-10-02] MEDS: amLODIPine 10 MG TAB PO SCH (09:19)
[2021-10-02] MEDS: ASPIRIN 81 MG PO SCH (09:19)
[2021-10-02] MEDS: QUEtiapine 25 MG TAB PO SCH ×3 (09:20→20:36)
[2021-10-02] MEDS: PROPRANOLOL 20 MG TAB PO SCH (09:20)
[2021-10-02] MEDS: THIAMINE 100 MG TAB PO SCH (09:21)
[2021-10-02 09:43] LABS: African American GFR (CKD) 71.6 (60.0-200.0); Albumin 3.8 g/dL (3.8-4.9); Albumin/Globulin Ratio 1.52 (1.60-3.17); Anion Gap 9.8 mmol/L (10.00-18.00); BUN/Creat Ratio 12.5 Ratio (12.00-20.00); Carbon Dioxide 25.2 mmol/L (20.0-27.5); Globulin 2.5 g/dL (1.6-3.3); Non-African American GFR(CKD) 61.8 (60.0-200.0); Potassium 4.5 mmol/L (3.5-5.5); Total Bilirubin 0.6 mg/dL (0.30-1.20); Total Protein 6.3 g/dL (6.2-8.2)
[2021-10-02] MEDS ORDERED: ACETAMINOPHEN TAB 325 MG TAB PO PRN (10:51)
[2021-10-02] MEDS ORDERED: IPRATROPIUM-ALBUTEROL 3 ML NEB INHALATION PRN (10:51)
--- NOTE | 2021-10-02 20:29 | PN ---
PROGRESS NOTE DATE OF SERVICE: 10/02/2021 CHIEF COMPLAINT: Urinary tract infection with fever. HISTORY OF PRESENT ILLNESS: This gentleman seems to be stable. Temperature is down. He is awake and alert. PHYSICAL EXAMINATION: His color and hydration are good. Chest is clear. Cardiac exam is normal. Abdomen is soft, nontender. IMPRESSION: 1. Urethritis and cystitis. 2. Previous cerebrovascular accident. 3. Possible sepsis. PLAN: Continue with IV fluids and antibiotics. MMODL / IJN: [id number] /
[2021-10-02] MEDS: ATORVASTATIN 10 MG TAB PO SCH (20:36)
[2021-10-03 03:43] VITALS: RESP 18
[2021-10-03 06:19] VITALS: TEMP 98.2
[2021-10-03] MEDS: QUEtiapine 25 MG TAB PO SCH ×2 (07:58→13:12)
[2021-10-03] MEDS: THIAMINE 100 MG TAB PO SCH (07:59)
[2021-10-03] MEDS: ASPIRIN 81 MG PO SCH (07:59)
[2021-10-03] MEDS: PROPRANOLOL 20 MG TAB PO SCH (07:59)
[2021-10-03] MEDS: amLODIPine 10 MG TAB PO SCH (07:59)
[2021-10-03] MEDS ORDERED: FOLIC ACID 1 MG TAB PO SCH (09:00)
[2021-10-03 13:36] VITALS: BP 111/71; PULSE 96
--- NOTE | 2021-10-03 14:01 | DS ---
DISCHARGE SUMMARY CHIEF COMPLAINT: Mental status changes, agitation, fever and infected Quinones catheter. HISTORY OF PRESENT ILLNESS AND PHYSICAL EXAMINATION: Details of this man's history and physical can be found in the initial workup. LABORATORY STUDIES: While he was in the hospital he had laboratory studies, details of which can be found in the laboratory section of his chart. COURSE IN THE HOSPITAL: After admission he was placed on bedrest, started intravenous fluids and IV antibiotics. Quinones catheter was changed. He remained essentially asymptomatic. He was doing well and it was felt that [facility] could [facility]. He will go there on his usual activity, diet and medication. Amoxil 250 t.i.d. will be added for 10 days. FINAL DIAGNOSIS: 1. Urethritis. 2. Previous cerebrovascular accident. 3. Neurogenic bladder. 4. History of hypertension. OPERATIONS: None. CONSULTATION: Urology. He is improved. MMODL / ROSELINEN: [id number] /
[2021-10-03] MEDS ORDERED: AMOXICILLIN 250 MG CAP PO SCH (16:00)
== END 2021-10-03 15:45 ==
LOC: EC 09:03 → 6NMEDSUR 11:45
PROVIDERS: ADMIT Family Medicine; ATTEND Family Medicine
DX: N34.2 Other urethritis (principal); N30.90 Cystitis, unspecified without hematuria; F01.50 Vascular dementia, unspecified severity, without behavioral disturbance, psychotic disturbance, mood disturbance, and anxiety; G93.49 Other encephalopathy; R41.82 Altered mental status, unspecified; H91.10 Presbycusis, unspecified ear; N31.9 Neuromuscular dysfunction of bladder, unspecified; I10 Essential (primary) hypertension; Y92.129 Unspecified place in nursing home as the place of occurrence of the external cause; Z86.73 Personal history of transient ischemic attack (TIA), and cerebral infarction without residual deficits; H91.90 Unspecified hearing loss, unspecified ear; E78.5 Hyperlipidemia, unspecified; N42.9 Disorder of prostate, unspecified; R29.6 Repeated falls; I25.10 Atherosclerotic heart disease of native coronary artery without angina pectoris; G93.89 Other specified disorders of brain; G31.9 Degenerative disease of nervous system, unspecified; R13.10 Dysphagia, unspecified; Z87.440 Personal history of urinary (tract) infections; N18.9 Chronic kidney disease, unspecified; N40.0 Benign prostatic hyperplasia without lower urinary tract symptoms; Z87.442 Personal history of urinary calculi; Z87.891 Personal history of nicotine dependence; Z81.8 Family history of other mental and behavioral disorders; Z82.49 Family history of ischemic heart disease and other diseases of the circulatory system; Z80.1 Family history of malignant neoplasm of trachea, bronchus and lung; Z90.49 Acquired absence of other specified parts of digestive tract; Z98.890 Other specified postprocedural states; Z79.82 Long term (current) use of aspirin; Z79.899 Other long term (current) drug therapy
CPT/HCPCS: 96361 ×3; 96366 ×2; 96365; 99285; 36415; 93005; 97162; 97166; 80053 ×2; 82140; 83605; 84484; 85025 ×2; 85610; 85730; 81001; 87040; 80306; 87086; 87077; 87186; 71046; 70450; G0378 ×3; G0480; J0696 ×3; 80320

== ENCOUNTER 2021-11-03 17:57 | Emergency (ER) | payer MEDICARE, OTHER ==
[2021-11-03 18:13] VITALS: RESP 18; TEMP 98.2
--- NOTE | 2021-11-03 18:23 | ED ---
General Adult HPI - General Chief complaint: Urogenital Stated complaint: Catheter placement Time Seen by Provider: 11/03/21 18:05 Source: patient, EMS, RN notes reviewed Mode of arrival: EMS Limitations: language barrier, altered mental status - History of Present Illness Initial comments: Patient is a pleasant 66-year-old male presenting to emergency department for Quinones catheter placement. Patient is very hard of hearing and provides no additional history. Patient denies other complaints. Patient was found today not having the catheter when he is supposed to have one secondary to history of urinary retention - Related Data Home Medications Medication Instructions Recorded Confirmed Atorvastatin [Lipitor] 10 mg PO HS 04/14/20 10/01/21 Folic Acid 0.4 mg PO DAILY 04/14/20 10/01/21 Ipratropium-Albuterol Nebulize 3 ml INHALATION RT-Q4H PRN 04/14/20 10/01/21 [Duoneb 0.5 mg-3 mg/3 ml Soln] Propranolol HCl 60 mg PO DAILY 04/14/20 10/01/21 Thiamine HCl [Vitamin B-1] 300 mg PO DAILY 04/14/20 10/01/21 amLODIPine [Norvasc] 10 mg PO DAILY 04/14/20 10/01/21 ondansetron HCL [Zofran] 4 mg PO Q6H PRN 04/14/20 10/01/21 Acetaminophen Tab [Tylenol] 650 mg PO Q8H PRN 06/14/20 10/01/21 Aspirin 81 mg PO DAILY 06/14/20 10/01/21 QUEtiapine [SEROquel] 25 mg PO TID@0900,1300,2100 12/31/20 10/01/21 QUEtiapine [SEROquel] 50 mg PO TID@0900,1300,2100 07/01/21 10/01/21 Previous Rx's Medication Instructions Recorded Amoxicillin 250 mg PO Q8HR #30 cap 10/03/21 Allergies Allergy/AdvReac Type Severity Reaction Status Date / Time No Known Allergies Allergy Verified 11/03/21 18:07 Review of Systems ROS Statement: Those systems with pertinent positive or pertinent negative responses have been documented in the HPI. Limitations: ROS unobtainable due to patients medical condition Genitourinary: Reports: as per HPI Past Medical History Past Medical History: CVA/TIA, Dementia, Hearing Disorder / Deafness, Hyperlipidemia, Hypertension, Prostate Disorder Additional Past Medical History / Comment(s): AMS changes/ischemic encephalopathy/vascular dementia/CPD/ASHD/presbycusis. He had a LP performed and was transferred to [facility]. Discharge diagnosis from [facility] list: severe generalized intracranial leukoencephalopathy/cerebral ventriculomegaly/cerebral atrophy/neurogenic dysphagia/UTI/urinary retention/constipation/suspected dysautonomally, acute encephalopathy. [facility] states they were also told uncontrolled HTN/hydrocephalus/advance dementia/uti. Other hx: 2013 CVA without residual, [place] bilaterally/speak in R ear, occasional urinary incontinence/frequency, CKD, nephrolithiasis, BPH, occasional back pain. History of Any Multi-Drug Resistant Organisms: None Reported Past Surgical History: Appendectomy Additional Past Surgical History / Comment(s): colonoscopy Past Anesthesia/Blood Transfusion Reactions: No Reported Reaction Past Psychological History: No Psychological Hx Reported Smoking Status: Former smoker Past Alcohol Use History: None Reported Past Drug Use History: None Reported - Past Family History Mother Family Medical History: Dementia, Hypertension Father Family Medical History: Cancer Additional Family Medical History / Comment(s): Lung cancer. Father was a smoker. General Exam Limitations: altered mental status General appearance: alert, in no apparent distress Head exam: Present: atraumatic Eye exam: Present: normal appearance Respiratory exam: Present: normal lung sounds bilaterally Cardiovascular Exam: Present: regular rate, normal rhythm GI/Abdominal exam: Present: soft. Absent: tenderness exam: Present: normal inspection Neurological exam: Present: alert Psychiatric exam: Present: normal affect, normal mood Skin exam: Present: normal color Course Vital Signs 11/03/21 18:03 Temperature 98.2 F Pulse Rate 69 Respiratory 18 Rate Blood Pressure 150/92 O2 Sat by Pulse 96 Oximetry Medical Decision Making - Medical Decision Making Quinones catheter placed by nursing staff without difficulty Disposition Clinical Impression: Urinary retention Disposition: HOME SELF-CARE Condition: Stable Instructions (If sedation given, give patient instructions): Urinary Retention in Men (ED) Additional Instructions: Please do follow-up with primary care physician within the next couple days for recheck. Return for problems with catheter, not passing urine, worsening symptoms or other concerns. Is patient prescribed a controlled substance at d/c from ED?: No Referrals: Lalo Tubbs MD [Primary Care Provider] - 1-2 days Time of Disposition: 18:22
[2021-11-03 18:53] VITALS: BP 141/83; PULSE 70
== END 2021-11-03 19:10 | disposition home or self-care (01) ==
LOC: EC 17:57
DX: R33.9 Retention of urine, unspecified (principal); I12.9 Hypertensive chronic kidney disease with stage 1 through stage 4 chronic kidney disease, or unspecified chronic kidney disease; N18.9 Chronic kidney disease, unspecified; E78.5 Hyperlipidemia, unspecified; I25.10 Atherosclerotic heart disease of native coronary artery without angina pectoris; F01.50 Vascular dementia, unspecified severity, without behavioral disturbance, psychotic disturbance, mood disturbance, and anxiety; Z79.82 Long term (current) use of aspirin; Z86.73 Personal history of transient ischemic attack (TIA), and cerebral infarction without residual deficits; Z87.891 Personal history of nicotine dependence
CPT/HCPCS: 51702; 99283

== ENCOUNTER 2022-04-11 09:24 | Emergency (ER) | payer MEDICARE, OTHER ==
[2022-04-11 09:30] VITALS: RESP 18; TEMP 98.6
--- NOTE | 2022-04-11 11:48 | ED ---
Male Urogenital HPI - General Chief complaint: Urogenital Stated complaint: Catheter placement Time Seen by Provider: 04/11/22 09:28 Source: patient, EMS, RN notes reviewed Mode of arrival: EMS Limitations: no limitations - History of Present Illness Initial comments: 66-year-old male presents to emergency department with chief complaint of needing Quinones catheter exchange. Patient was at [facility] on a blade seems fully There is unsure how long this is been on her reports of at least 2-3 months. Patient denies any fevers chills he states he has to urinate but unable to urinate secondary catheter not flowing. - Related Data Home Medications Medication Instructions Recorded Confirmed Atorvastatin [Lipitor] 10 mg PO HS 04/14/20 10/01/21 Folic Acid 0.4 mg PO DAILY 04/14/20 10/01/21 Ipratropium-Albuterol Nebulize 3 ml INHALATION RT-Q4H PRN 04/14/20 10/01/21 [Duoneb 0.5 mg-3 mg/3 ml Soln] Propranolol HCl [Inderal] 60 mg PO DAILY 04/14/20 10/01/21 Thiamine HCl [Vitamin B-1] 300 mg PO DAILY 04/14/20 10/01/21 amLODIPine [Norvasc] 10 mg PO DAILY 04/14/20 10/01/21 ondansetron HCL [Zofran] 4 mg PO Q6H PRN 04/14/20 10/01/21 Acetaminophen Tab [Tylenol] 650 mg PO Q8H PRN 06/14/20 10/01/21 Aspirin 81 mg PO DAILY 06/14/20 10/01/21 QUEtiapine [SEROquel] 25 mg PO TID@0900,1300,2100 12/31/20 10/01/21 QUEtiapine [SEROquel] 50 mg PO TID@0900,1300,2100 07/01/21 10/01/21 Previous Rx's Medication Instructions Recorded Amoxicillin 250 mg PO Q8HR #30 cap 10/03/21 Cephalexin [Keflex] 500 mg PO Q8HR #30 cap 04/11/22 Allergies Allergy/AdvReac Type Severity Reaction Status Date / Time No Known Allergies Allergy Verified 04/11/22 09:30 Review of Systems ROS Statement: Those systems with pertinent positive or pertinent negative responses have been documented in the HPI. ROS Other: All systems not noted in ROS Statement are negative. Past Medical History Past Medical History: CVA/TIA, Hearing Disorder / Deafness, Hyperlipidemia, Hypertension, Prostate Disorder Additional Past Medical History / Comment(s): AMS changes/ischemic encephalopathy/vascular dementia/CPD/ASHD/presbycusis. He had a LP performed and was transferred to [facility]. Discharge diagnosis from [facility] list: severe generalized intracranial leukoencephalopathy/cerebral ventriculomegaly/cerebral atrophy/neurogenic dysphagia/UTI/urinary retention/constipation/suspected dysautonomally, acute encephalopathy. [facility] states they were also told uncontrolled HTN/hydrocephalus/advance dementia/uti. Other hx: 2013 CVA without residual, [place] bilaterally/speak in R ear, occasional urinary incontinence/frequency, CKD, nephrolithiasis, BPH, occasional back pain. History of Any Multi-Drug Resistant Organisms: None Reported Past Surgical History: Appendectomy Additional Past Surgical History / Comment(s): colonoscopy Past Anesthesia/Blood Transfusion Reactions: No Reported Reaction Past Psychological History: No Psychological Hx Reported Smoking Status: Former smoker Past Alcohol Use History: None Reported Past Drug Use History: None Reported - Past Family History Mother Family Medical History: Dementia, Hypertension Father Family Medical History: Cancer Additional Family Medical History / Comment(s): Lung cancer. Father was a smoker. General Exam Limitations: no limitations General appearance: alert, in no apparent distress Head exam: Present: atraumatic, normocephalic, normal inspection Respiratory exam: Present: normal lung sounds bilaterally. Absent: respiratory distress, wheezes, rales, rhonchi, stridor Cardiovascular Exam: Present: regular rate, normal rhythm, normal heart sounds. Absent: systolic murmur, diastolic murmur, rubs, gallop, clicks GI/Abdominal exam: Present: soft, distended, tenderness, normal bowel sounds. Absent: guarding, rebound, rigid Course Vital Signs 04/11/22 04/11/22 09:26 12:49 Temperature 98.6 F Pulse Rate 82 80 Respiratory 18 18 Rate Blood Pressure 143/81 126/78 O2 Sat by Pulse 97 100 Oximetry Medical Decision Making - Medical Decision Making Quinones catheter was unable to be removed, multiple attempts, fluid was removed from ballom, appears to be calcified discussed with Dr. barnett who came and evaluated the patient and was able to pull the catheter and placed a catheter in the emergency department. Disposition Clinical Impression: Indwelling Quinones catheter calcification, Complication, blocked Quinones catheter Disposition: HOME SELF-CARE Condition: Stable Instructions (If sedation given, give patient instructions): Quinones Catheter Placement and Care (ED) Additional Instructions: Please return to the Emergency Department if symptoms worsen or any other concerns. Prescriptions: Cephalexin [Keflex] 500 mg PO Q8HR #30 cap Is patient prescribed a controlled substance at d/c from ED?: No Referrals: Lalo Tubbs MD [Primary Care Provider] - 1-2 days Time of Disposition: 11:48
--- NOTE | 2022-04-11 12:04 | P.GSCN ---
History of Present Illness Consult date: 04/11/22 Reason for Consult: Urinary retention, catheter malfunction History of present illness: This is a 66-year-old male with history of chronic urinary retention. [facility], thus he was transferred to the emergency department. The ER team attempted to remove the catheter but resistance was met. . Patient is a poor historian, a history could not be obtained. Patient was last seen by Dr. Blackwell while he was in the hospital in September for retention. It's unknown when the patient catheter was exchanged last Review of Systems ROS unobtainable: due to mental status Past Medical History Past Medical History: CVA/TIA, Hearing Disorder / Deafness, Hyperlipidemia, Hypertension, Prostate Disorder Additional Past Medical History / Comment(s): AMS changes/ischemic encephalopathy/vascular dementia/CPD/ASHD/presbycusis. He had a LP performed and was transferred to [facility]. Discharge diagnosis from [facility] list: severe generalized intracranial leukoencephalopathy/cerebral ventriculomegaly/cerebral atrophy/neurogenic dysphagia/UTI/urinary retention/constipation/suspected dysautonomally, acute encephalopathy. [facility] states they were also told uncontrolled HTN/hydrocephalus/advance dementia/uti. Other hx: 2012 CVA without residual, [place] bilaterally/speak in R ear, occasional urinary incontinen ce/frequency, CKD, nephrolithiasis, BPH, occasional back pain. History of Any Multi-Drug Resistant Organisms: None Reported Past Surgical History: Appendectomy Additional Past Surgical History / Comment(s): colonoscopy Past Anesthesia/Blood Transfusion Reactions: No Reported Reaction Past Psychological History: No Psychological Hx Reported Smoking Status: Former smoker Past Alcohol Use History: None Reported Past Drug Use History: None Reported - Past Family History Mother Family Medical History: Dementia, Hypertension Father Family Medical History: Cancer Additional Family Medical History / Comment(s): Lung cancer. Father was a smoker. Medications and Allergies Home Medications Medication Instructions Recorded Confirmed Type Atorvastatin [Lipitor] 10 mg PO HS 04/14/20 10/01/21 History Folic Acid 0.4 mg PO DAILY 04/14/20 10/01/21 History Ipratropium-Albuterol Nebulize 3 ml INHALATION RT-Q4H PRN 04/14/20 10/01/21 History [Duoneb 0.5 mg-3 mg/3 ml Soln] Propranolol HCl [Inderal] 60 mg PO DAILY 04/14/20 10/01/21 History Thiamine HCl [Vitamin B-1] 300 mg PO DAILY 04/14/20 10/01/21 History amLODIPine [Norvasc] 10 mg PO DAILY 04/14/20 10/01/21 History ondansetron HCL [Zofran] 4 mg PO Q6H PRN 04/14/20 10/01/21 History Acetaminophen Tab [Tylenol] 650 mg PO Q8H PRN 06/14/20 10/01/21 History Aspirin 81 mg PO DAILY 06/14/20 10/01/21 History QUEtiapine [SEROquel] 25 mg PO TID@0900,1300,2100 12/31/20 10/01/21 History QUEtiapine [SEROquel] 50 mg PO TID@0900,1300,2100 07/01/21 10/01/21 History Amoxicillin 250 mg PO Q8HR #30 cap 10/03/21 Rx Cephalexin [Keflex] 500 mg PO Q8HR #30 cap 04/11/22 Rx Allergies Allergy/AdvReac Type Severity Reaction Status Date / Time No Known Allergies Allergy Verified 04/11/22 09:30 Surgical - Exam Vital Signs Temp Pulse Resp BP Pulse Ox 98.6 F 82 18 143/81 97 04/11/22 09:26 04/11/22 09:26 04/11/22 09:26 04/11/22 09:26 04/11/22 09:26 - General no distress, moderate pain - ENT normal nares, normal mucosa - Respiratory normal expansion, normal respiratory effort - Abdomen Abdomen: soft, non tender - Psychiatric oriented to time, oriented to person, oriented to place Assessment and Plan Assessment: 66-year-old male with chronic urinary retention managed with a Quinones catheter. Attempted to remove the Quinones catheter by ED was unsuccessful to secondary to encrustation. I was able to remove the catheter, the catheter and the balloon was intact upon removal. -New 16-Bulgarian coud catheter was placed with return of cloudy urine -Continue with [facility] the [facility]
--- NOTE | 2022-04-11 12:05 | P.PCN ---
Date of Procedure: 04/11/22 Preoperative Diagnosis: Urinary retention Postoperative Diagnosis: Same Description of Procedure: The previous catheter was removed intact, there was encrustation on the catheter tip. A new 16-Turkish coud catheter was placed sterilly with return of cloudy urine. Balloon inflated with 10 mL. Patient tolerated procedure well
[2022-04-11 12:50] VITALS: BP 126/78; PULSE 80
== END 2022-04-11 12:50 | disposition home or self-care (01) ==
LOC: EC 09:24
DX: T83.098A Other mechanical complication of other urinary catheter, initial encounter (principal); I10 Essential (primary) hypertension; E78.5 Hyperlipidemia, unspecified; Z86.73 Personal history of transient ischemic attack (TIA), and cerebral infarction without residual deficits; Z87.891 Personal history of nicotine dependence; Z79.899 Other long term (current) drug therapy
CPT/HCPCS: 87086; 99283

== ENCOUNTER 2022-05-12 07:48 | Emergency (ER) | payer MEDICARE, OTHER ==
[2022-05-12 08:18] LABS: Appearance,Urine Turbid (Clear); Bacteria,Urine Rare /hpf; Bilirubin,Urine Negative (Negative); Blood,Urine Moderate (Negative); Color,Urine Yellow; Glucose,Urine (UA) Negative (Negative); Ketones,Urine Negative (Negative); Leukocyte Esterase,Urine Large (Negative); Mucus,Urine Occasional /hpf; Nitrite,Urine Negative (Negative); Protein,Urine 1+ (Negative); RBC,Urine 60 /hpf (0-5); Specific Gravity,Urine 1.014 (1.001-1.035); Urobilinogen,Urine <2.0 mg/dL (<2.0); WBC,Urine >182 /hpf (0-5)
--- NOTE | 2022-05-12 08:51 | ED ---
General Adult HPI - General Chief complaint: Urogenital Stated complaint: Cathater issues Time Seen by Provider: 05/12/22 07:55 Source: patient, RN notes reviewed, old records reviewed Mode of arrival: EMS Limitations: no limitations - History of Present Illness Initial comments: This is a 66-year-old male who has indwelling Quinones catheter in place. [facility] because he is on a schedule replacement. But they were unable to pull the catheter out so they sent the patient to the emergency department. Patient himself has no complaints. There's been no fever chills. There's been no abdominal pain is been no nausea vomiting diarrhea. - Related Data Home Medications Medication Instructions Recorded Confirmed Atorvastatin [Lipitor] 10 mg PO HS 04/14/20 10/01/21 Folic Acid 0.4 mg PO DAILY 04/14/20 10/01/21 Ipratropium-Albuterol Nebulize 3 ml INHALATION RT-Q4H PRN 04/14/20 10/01/21 [Duoneb 0.5 mg-3 mg/3 ml Soln] Propranolol HCl [Inderal] 60 mg PO DAILY 04/14/20 10/01/21 Thiamine HCl [Vitamin B-1] 300 mg PO DAILY 04/14/20 10/01/21 amLODIPine [Norvasc] 10 mg PO DAILY 04/14/20 10/01/21 ondansetron HCL [Zofran] 4 mg PO Q6H PRN 04/14/20 10/01/21 Acetaminophen Tab [Tylenol] 650 mg PO Q8H PRN 06/14/20 10/01/21 Aspirin 81 mg PO DAILY 06/14/20 10/01/21 QUEtiapine [SEROquel] 25 mg PO TID@0900,1300,2100 12/31/20 10/01/21 QUEtiapine [SEROquel] 50 mg PO TID@0900,1300,2100 07/01/21 10/01/21 Previous Rx's Medication Instructions Recorded Amoxicillin 250 mg PO Q8HR #30 cap 10/03/21 Cephalexin [Keflex] 500 mg PO Q8HR #30 cap 04/11/22 Sulfamethox-Tmp 800-160Mg [Bactrim 1 each PO Q12HR #14 tab 05/12/22 DS 800-160 mg] Allergies Allergy/AdvReac Type Severity Reaction Status Date / Time No Known Allergies Allergy Verified 05/12/22 07:59 Review of Systems ROS Statement: Those systems with pertinent positive or pertinent negative responses have been documented in the HPI. ROS Other: All systems not noted in ROS Statement are negative. Past Medical History Past Medical History: CVA/TIA, Hearing Disorder / Deafness, Hyperlipidemia, Hypertension, Prostate Disorder Additional Past Medical History / Comment(s): AMS changes/ischemic encephalopathy/vascular dementia/CPD/ASHD/presbycusis. He had a LP performed and was transferred to [facility]. Discharge diagnosis from [facility] list: severe generalized intracranial leukoencephalopathy/cerebral ventriculomegaly/cerebral atrophy/neurogenic dysphagia/UTI/urinary retention/constipation/suspected dysaut onomally, acute encephalopathy. [facility] states they were also told uncontrolled HTN/hydrocephalus/advance dementia/uti. Other hx: 2013 CVA without residual, [place] bilaterally/speak in R ear, occasional urinary incontinence/frequency, CKD, nephrolithiasis, BPH, occasional back pain. History of Any Multi-Drug Resistant Organisms: None Reported Past Surgical History: Appendectomy Additional Past Surgical History / Comment(s): colonoscopy Past Anesthesia/Blood Transfusion Reactions: No Reported Reaction Past Psychological History: No Psychological Hx Reported Smoking Status: Former smoker Past Alcohol Use History: None Reported Past Drug Use History: None Reported - Past Family History Mother Family Medical History: Dementia, Hypertension Father Family Medical History: Cancer Additional Family Medical History / Comment(s): Lung cancer. Father was a smoker. General Exam - General Exam Comments Initial Comments: GENERAL: Patient is well-developed and well-nourished. Patient is nontoxic and well- hydrated and is in no acute distress. ENT: Neck is soft and supple. EYES: The sclera were anicteric and conjunctiva were pink and moist. Extraocular movements were intact and pupils were equal round and reactive to light. Eyelids were unremarkable. SKIN: Skin is clear with no lesions or rashes and otherwise unremarkable. NEUROLOGIC: Patient is alert and oriented difficult to assess since he is so hard appearing. Cranial nerves II through XII are grossly intact. MUSCULOSKELETAL: Normal extremities with adequate strength and full range of motion. LYMPHATICS: No significant lymphadenopathy is noted PSYCHIATRIC: Normal psychiatric evaluation. Limitations: no limitations Course Vital Signs 05/12/22 07:56 Temperature 98.4 F Pulse Rate 78 Respiratory 16 Rate Blood Pressure 152/43 O2 Sat by Pulse 97 Oximetry Medical Decision Making - Medical Decision Making Patient has a urinary tract infection patient received 2 g of Rocephin. - Lab Data Lab Results 05/12/22 05/12/22 Range/Units 07:59 08:43 Urine Color Yellow Light Yellow Urine Appearance Turbid Cloudy (Clear) Urine pH 7.0 7.5 (5.0-8.0) Ur Specific [place] 1.014 1.011 (1.001-1.035) Urine Protein 1+ H 1+ H (Negative) Urine Glucose (UA) Negative Negative (Negative) Urine Ketones Negative Negative (Negative) Urine Blood Moderate H Moderate H (Negative) Urine Nitrite Negative Negative (Negative) Urine Bilirubin Negative Negative (Negative) Urine Urobilinogen <2.0 <2.0 (<2.0) mg/dL Ur Leukocyte Esterase Large H Large H (Negative) Urine RBC 60 H 64 H (0-5) /hpf Urine WBC >182 H >182 H (0-5) /hpf Urine WBC Clumps Many H Many H (None) /hpf Urine Bacteria Rare H (None) /hpf Urine Mucus Occasional H Rare H (None) /hpf Urine Yeast (Budding) Moderate H (None) /hpf Disposition Clinical Impression: Catheter (urine) change required, Urinary tract infection Disposition: HOME SELF-CARE Condition: Good Instructions (If sedation given, give patient instructions): Urinary Tract Infection in Men (ED) Prescriptions: Sulfamethox-Tmp 800-160Mg [Bactrim DS 800-160 mg] 1 each PO Q12HR #14 tab Is patient prescribed a controlled substance at d/c from ED?: No Referrals: Lalo Tubbs MD [Primary Care Provider] - 1-2 days Time of Disposition: 09:14
[2022-05-12 08:56] LABS: Appearance,Urine Cloudy (Clear); Bilirubin,Urine Negative (Negative); Blood,Urine Moderate (Negative); Budding Yeast,Urine Moderate /hpf; Color,Urine Light Yellow; Glucose,Urine (UA) Negative (Negative); Ketones,Urine Negative (Negative); Leukocyte Esterase,Urine Large (Negative); Mucus,Urine Rare /hpf; Nitrite,Urine Negative (Negative); PH, Urine 7.5 (5.0-8.0); Protein,Urine 1+ (Negative); RBC,Urine 64 /hpf (0-5); Specific Gravity,Urine 1.011 (1.001-1.035); Urobilinogen,Urine <2.0 mg/dL (<2.0); WBC,Urine >182 /hpf (0-5)
[2022-05-12] MEDS ORDERED: cefTRIAXone IN SWFI 1,000 MG/10 ML SYRINGE IVP STA (09:12)
[2022-05-12] MEDS ORDERED: cefTRIAXone 1,000 MG VIAL (IM USE) IM STA (09:18)
[2022-05-12 10:22] VITALS: BP 149/70; PULSE 71; RESP 18; TEMP 98
== END 2022-05-12 11:13 | disposition home or self-care (01) ==
LOC: EC 07:48
DX: T83.091A Other mechanical complication of indwelling urethral catheter, initial encounter (principal); N39.0 Urinary tract infection, site not specified; Z86.73 Personal history of transient ischemic attack (TIA), and cerebral infarction without residual deficits; E78.5 Hyperlipidemia, unspecified; I10 Essential (primary) hypertension; Z87.891 Personal history of nicotine dependence; Z79.82 Long term (current) use of aspirin; Z79.899 Other long term (current) drug therapy
CPT/HCPCS: 81001; 87086; 87077; 87186; 99284; 96372; J0696

== ENCOUNTER 2022-07-25 07:22 | Day surgery (SDC) | payer MEDICARE ==
[2022-07-22 11:46] VITALS: BMI 32.9
--- NOTE | 2022-07-25 06:40 | P.GSHP ---
History of Present Illness H&P Date: 07/25/22 Chief Complaint: Urinary retention The patient is a 67-year-old white male with known BPH. He sustained 2 previous strokes, in 2012 and 2019. Following the latter, he underwent placement of a feeding tube and an indwelling Quinones catheter is being used. Difficulty has been experienced removing the catheter due to bladder calculi. - Constitutional Constitutional: Denies chills, Denies fever - Genitourinary (Male) Genitourinary: Reports as per HPI Past Medical History Past Medical History: COPD, CVA/TIA, Dementia, Hearing Disorder / Deafness, Hyperlipidemia, Hypertension, Prostate Disorder Additional Past Medical History / Comment(s): AMS changes/ischemic encephalopathy/vascular dementia/CPD/ASHD/presbycusis. He had a LP performed and was transferred to [facility]. Discharge diagnosis from [facility] list: severe generalized intracranial leukoencephalopathy/cerebral ventriculomegaly/cerebral atrophy/neurogenic dysphagia/UTI/urinary retention/constipation/suspected dysautonomally, acute encephalopathy. [facility] states they were also told uncontrolled HTN/hydrocephalus/advance dementia/uti. Other hx: 2013 CVA without residual, [place] bilaterally/speak in R ear, occasional urinary incontinence/frequency, CKD, nephrolithiasis, BPH, occasional back pain. History of Any Multi-Drug Resistant Organisms: None Reported Past Surgical History: Appendectomy Additional Past Surgical History / Comment(s): colonoscopy Past Anesthesia/Blood Transfusion Reactions: No Reported Reaction Past Psychological History: Anxiety, Depression Additional Psychological History / Comment(s): Pt has legal guardians/document on chart. Pt currently at [facility]. He uses a walker occasionally. He takes his pills crushed. He is on aspiration and fall precautions. [facility] diagnosis list states psychiatric disorder. Smoking Status: Former smoker Past Alcohol Use History: None Reported Additional Past Alcohol Use History / Comment(s): Pt started smoking as a teen and was a ppd smoker. Pt has not smoked since 03/23/20. Past Drug Use History: None Reported - Past Family History Mother Family Medical History: Dementia, Hypertension Father Family Medical History: Cancer Additional Family Medical History / Comment(s): Lung cancer. Father was a smoker. Medications and Allergies Home Medications Medication Instructions Recorded Confirmed Type Atorvastatin [Lipitor] 10 mg PO HS 04/14/20 07/22/22 History Folic Acid 0.4 mg PO DAILY 04/14/20 07/22/22 History Propranolol HCl [Inderal] 60 mg PO DAILY 04/14/20 07/22/22 History Thiamine HCl [Vitamin B-1] 100 mg PO DAILY 04/14/20 07/22/22 History amLODIPine [Norvasc] 10 mg PO DAILY 04/14/20 07/22/22 History ondansetron HCL [Zofran] 4 mg PO Q8H PRN 04/14/20 07/22/22 History Acetaminophen Tab [Tylenol] 650 mg PO Q8H PRN 06/14/20 07/22/22 History Aspirin 81 mg PO DAILY 06/14/20 07/22/22 History QUEtiapine [SEROquel] 50 mg PO TID 07/01/21 07/22/22 History Allergies Allergy/AdvReac Type Severity Reaction Status Date / Time No Known Allergies Allergy Verified 07/22/22 11:28 Surgical - Exam - General well developed, well nourished, no distress - Respiratory normal respiratory effort - Abdomen Abdomen: soft, non tender, no guarding, no rigid, no rebound - Genitourinary normal penis with no external lesions, testicles non-tender - Psychiatric oriented to time, oriented to person, oriented to place, speech is normal, memory intact Assessment and Plan (1) Calculus in bladder Status: Acute Code(s): N21.0 - CALCULUS IN BLADDER SNOMED Code(s): 14836023 Plan: Cystoscopy with cystolithotripsy will be performed to remove any bladder calculi. The procedure has been reviewed with the patient. He is aware of potential risks, which include anesthesia, bleeding, infection, bladder perforation. Once he recovers, he will be given a voiding trial.
[~2022-07-25 07:22] MED LIST: DEXAMETHASONE SOD PHOSPHATE 4 MG/ML 1 ML VIAL IV ONE; GENTAMICIN 140 MG in SODIUM CHLORIDE 0.9% 100 ML IVPB PRN; HYDROmorphone 0.5 MG/0.5 ML SYRINGE IVP PRN; LACTATED RINGERS 1,000 ML IV SCH; LIDOCAINE 1% (10MG/ML) FOR IV START INTRADERMA PRN; MIDAZOLAM 2 MG/2 ML VIAL IV PRN; ONDANSETRON 4 MG/2 ML VIAL IVP ONE
[2022-07-25] MEDS ORDERED: LACTATED RINGERS 1,000 ML IV ONE ×2 (08:11→10:36)
[2022-07-25 08:22] LABS: Basophils # (A) 0.1 k/uL (0-0.2); Basophils % (A) 1 %; Eosinophils # (A) 0.2 k/uL (0-0.7); Eosinophils % (A) 3 %; HCT 42.2 % (39.0-53.0); HGB 14.4 gm/dL (13.0-17.5); Lymphocytes # (A) 1.3 k/uL (1.0-4.8); Lymphocytes % (A) 17 %; MCH 32.3 pg (25.0-35.0); MCHC 34.2 g/dL (31.0-37.0); MCV 94.6 fL (80.0-100.0); Mean Platelet Volume 7.4; Monocytes # (A) 0.7 k/uL (0-1.0); Monocytes % (A) 9 %; Neutrophils # (A) 5.3 k/uL (1.3-7.7); Neutrophils % (A) 69 %; Platelet Count 217 k/uL (150-450); RBC 4.46 m/uL (4.30-5.90); RDW 12.9 % (11.5-15.5); WBC 7.7 k/uL (3.8-10.6)
--- NOTE | 2022-07-25 08:28 | XR ---
EXAMINATION TYPE: XR KUB DATE OF EXAM: 07/25/2022 7:44 AM INDICATION: Patient age:Male; 67 years old; Reason for study: N21.0 bladder calculi; COMPARISON: 07/01/2021 TECHNIQUE: One radiographic view of the abdomen was obtained. FINDINGS: Large bladder stone projects over the pelvis measuring up to 4.1 x 2.3 cm. Degeneration juanito nges in the spine and hips. Nonspecific bowel gas pattern. IMPRESSION: 1. Large bladder stone. 2. Nonspecific bowel gas pattern without radiographic evidence for acute process.
[2022-07-25 08:30] LABS: Calcium 8.8 mg/dL (8.4-10.2); Potassium 4.1 mmol/L (3.5-5.1)
[2022-07-25] MEDS ORDERED: GLYCOPYRROLATE 0.2 MG/ML 2 ML VIAL ONE (09:38)
[2022-07-25] MEDS ORDERED: fentaNYL (PF) 50 MCG/ML 2 ML AMP ONE (09:38)
[2022-07-25] MEDS ORDERED: NEOSTIGMINE 1 MG/ML 10 ML VIAL ONE (09:38)
[2022-07-25] MEDS ORDERED: PROPOFOL 10 MG/ML 20 ML VIAL IV ONE (09:38)
[2022-07-25] MEDS ORDERED: LIDOCAINE 2% INJ 20 MG/ML (2 ML VIAL) ONE (09:38)
[2022-07-25] MEDS ORDERED: MIDAZOLAM 2 MG/2 ML VIAL ONE (09:38)
[2022-07-25] MEDS ORDERED: ROCURONIUM 10 MG/ML (5 ML VIAL) IV ONE (09:38)
--- NOTE | 2022-07-25 11:27 | P.OP ---
Date of Procedure: 07/25/22 Preoperative Diagnosis: Bladder calculi Postoperative Diagnosis: Same Procedure(s) Performed: Cystoscopy with cystolithotripsy, fulguration of bleeders Anesthesia: CARLENE Surgeon: Alex Sanford Estimated Blood Loss (ml): 20 Pathology: other (Bladder calculus fragments) Condition: stable Disposition: PACU Indications for Procedure: The patient is a 67-year-old white male with known BPH. He sustained 2 previous strokes, in 2012 and 2019. Following the latter, he underwent placement of a feeding tube and an indwelling Quinones catheter is being used. Difficulty has been experienced removing the catheter due to bladder calculi. Operative Findings: Multiple bladder calculi measuring up to 2 cm in size. Description of Procedure: The patient was taken to the operating room and placed in the dorsal lithotomy position, with legs supported in Mic stirrups. The Quinones catheter was removed. The tip of the Quinones catheter was heavily calcified. The external genitalia was prepped and draped sterilely. The 30 lens was used to introduce the 21-Bel[place] Conrad cystoscopic sheath through the urethra and into the bladder under direct vision. The urethra appeared normal. The prostate showed evidence of considerable lateral lobe enlargement which was visually occlusive. The bladder was examined in its entirety. The ureteral orifices appeared normal. Several calculi were seen measuring up to 2 cm in size. 2 of the calculi were visualized within the prostatic urethra. No tumors were seen. No diverticuli were seen. Using the 1000 micron Holmium laser probe, lithotripsy was performed. Lithotripsy was continued until all calculus fragments could be removed using the Ellik evacuator. Once this was completed, the bladder was inspected. There was no evidence of bladder perforation. Some oozing was seen from the prostatic urethra, particularly posteriorly on the right side. The Bugbee electrode was used to fulgurate these bleeders, attaining hemostasis. The cystoscope was removed, and an 18-[place] Quinones catheter was placed. The return was essentially clear. The patient tolerated the procedure well was taken to the recovery room in stable condition.
[2022-07-25 11:43] VITALS: RESP 16; TEMP 97.3
[2022-07-25 13:11] VITALS: PULSE 76
[2022-07-25 13:15] VITALS: BP 148/69
== END 2022-07-25 13:51 | disposition home or self-care (01) ==
LOC: OR 07:22
PROVIDERS: ATTEND Urology
DX: N21.0 Calculus in bladder (principal); R33.8 Other retention of urine; J44.9 Chronic obstructive pulmonary disease, unspecified; I25.10 Atherosclerotic heart disease of native coronary artery without angina pectoris; I12.9 Hypertensive chronic kidney disease with stage 1 through stage 4 chronic kidney disease, or unspecified chronic kidney disease; N18.9 Chronic kidney disease, unspecified; E78.5 Hyperlipidemia, unspecified; F01.50 Vascular dementia, unspecified severity, without behavioral disturbance, psychotic disturbance, mood disturbance, and anxiety; F41.9 Anxiety disorder, unspecified; F32.A Depression, unspecified; Z87.440 Personal history of urinary (tract) infections; Z86.73 Personal history of transient ischemic attack (TIA), and cerebral infarction without residual deficits; Z90.49 Acquired absence of other specified parts of digestive tract; Z87.891 Personal history of nicotine dependence; Z82.49 Family history of ischemic heart disease and other diseases of the circulatory system; Z80.1 Family history of malignant neoplasm of trachea, bronchus and lung; Z79.899 Other long term (current) drug therapy; Z79.82 Long term (current) use of aspirin
CPT/HCPCS: 80048; 85025; 82365; 74018; 52317; 52234; J2250; J1100; J2710; J0690; J2405; J3010; J1580; J2704; J2001

== ENCOUNTER 2023-02-19 23:25 | Inpatient (IN) | payer MEDICARE, OTHER ==
[2023-02-20 01:34] LABS: Basophils % (A) 0 %; Eosinophils # (A) 0.2 k/uL (0-0.7); Eosinophils % (A) 2 %; HCT 43.2 % (39.0-53.0); HGB 14.6 gm/dL (13.0-17.5); Lymphocytes # (A) 1.2 k/uL (1.0-4.8); Lymphocytes % (A) 13 %; MCH 32.5 pg (25.0-35.0); MCHC 33.7 g/dL (31.0-37.0); MCV 96.4 fL (80.0-100.0); Mean Platelet Volume 7.8; Monocytes # (A) 0.5 k/uL (0-1.0); Monocytes % (A) 6 %; Neutrophils # (A) 7.1 k/uL (1.3-7.7); Neutrophils % (A) 78 %; Platelet Count 210 k/uL (150-450); RBC 4.49 m/uL (4.30-5.90); RDW 12.8 % (11.5-15.5); WBC 9.1 k/uL (3.8-10.6)
--- NOTE | 2023-02-20 01:44 | ED ---
General Adult HPI - General Chief complaint: Fall Stated complaint: Fall Time Seen by Provider: 02/19/23 23:46 Source: EMS Mode of arrival: EMS Limitations: no limitations - History of Present Illness Initial comments: This is a 67-year-old male with an extensive past medical history including deafness, urinary retention, hypertension presents emergency department via EMS from his nursing facility for a unwitnessed, possible fall. The patient re portedly may have fallen and may have hit his head however this was on verified by EMS and the nursing facility. The patient is completely deaf and unable to communicate but was awake and alert. The patient was unable to provide any history and was difficult to obtain a history from even with writing out his questions. On evaluation, the patient did have abdominal distention and fullness as well as pain over the right femur however there was no obvious deformities noted. The patient cannot provide any further history at this time. - Related Data Home Medications Medication Instructions Recorded Confirmed Atorvastatin [Lipitor] 10 mg PO HS 04/14/20 07/22/22 Folic Acid 0.4 mg PO DAILY 04/14/20 07/22/22 Propranolol HCl [Inderal] 60 mg PO DAILY 04/14/20 07/22/22 Thiamine HCl [Vitamin B-1] 100 mg PO DAILY 04/14/20 07/22/22 amLODIPine [Norvasc] 10 mg PO DAILY 04/14/20 07/22/22 ondansetron HCL [Zofran] 4 mg PO Q8H PRN 04/14/20 07/22/22 Acetaminophen Tab [Tylenol] 650 mg PO Q8H PRN 06/14/20 07/22/22 Aspirin 81 mg PO DAILY 06/14/20 07/22/22 QUEtiapine [SEROquel] 50 mg PO TID 07/01/21 07/22/22 Previous Rx's Medication Instructions Recorded Sulfamethox-Tmp 800-160Mg [Bactrim 1 tab PO Q12HR #20 tab 07/25/22 DS 800-160 mg] Allergies Allergy/AdvReac Type Severity Reaction Status Date / Time No Known Allergies Allergy Verified 07/22/22 11:28 Review of Systems ROS Statement: Those systems with pertinent positive or pertinent negative responses have been documented in the HPI. ROS Other: All systems not noted in ROS Statement are negative. Past Medical History Past Medical History: COPD, CVA/TIA, Dementia, Hearing Disorder / Deafness, Hyperlipidemia, Hypertension, Prostate Disorder Additional Past Medical History / Comment(s): AMS changes/ischemic encephalopathy/vascular dementia/CPD/ASHD/presbycusis. He had a LP performed and was transferred to [facility]. Discharge diagnosis from [facility] list: severe generalized intracranial leukoencephalopathy/cerebral ventriculomegaly/cerebral atrophy/neurogenic dysphagia/UTI/urinary retention/constipation/suspected dysautonomally, acute encephalopathy. [facility] states they were also told uncontrolled HTN/hydrocephalus/advance dementia/uti. Other hx: 2013 CVA without residual, [place] bilaterally/speak in R ear, occasional urinary incontinence/frequency, CKD, nephrolithiasis, BPH, occasional back pain. History of Any Multi-Drug Resistant Organisms: None Reported Past Surgical History: Appendectomy Additional Past Surgical History / Comment(s): colonoscopy Past Anesthesia/Blood Transfusion Reactions: No Reported Reaction Past Psychological History: Anxiety, Depression Smoking Status: Former smoker Past Alcohol Use History: None Reported Past Drug Use History: None Reported - Past Family History Mother Family Medical History: Dementia, Hypertension Father Family Medical History: Cancer Additional Family Medical History / Comment(s): Lung cancer. Father was a smoker. General Exam Limitations: language barrier (Deaf), altered mental status (ANOx0, at baseline according to NH), physical limitation General appearance: alert, in no apparent distress, obese Head exam: Present: atraumatic, normocephalic, normal inspection Eye exam: Present: normal appearance, PERRL Pupils: Present: normal accommodation ENT exam: Present: normal exam, normal oropharynx, mucous membranes moist Neck exam: Present: normal inspection, full ROM Respiratory exam: Present: normal lung sounds bilaterally. Absent: respiratory distress, wheezes Cardiovascular Exam: Present: regular rate, normal rhythm, normal heart sounds GI/Abdominal exam: Present: soft, distended, tenderness (TTP in all quadrants) Extremities exam: Present: normal inspection, full ROM Back exam: Present: normal inspection, full ROM Neurological exam: Present: alert, oriented X3, CN II-XII intact Psychiatric exam: Present: normal affect, normal mood Skin exam: Present: warm, dry Course Vital Signs 02/20/23 02/20/23 02/20/23 00:00 01:00 02:08 Temperature 97.3 F L Pulse Rate 101 H 92 112 H Respiratory 18 18 18 Rate Blood Pressure 151/95 156/101 155/110 O2 Sat by Pulse 95 92 L 96 Oximetry 02/20/23 02/20/23 04:41 05:38 Temperature Pulse Rate 108 H 111 H Respiratory 19 19 Rate Blood Pressure 146/101 150/122 O2 Sat by Pulse 93 L 94 L Oximetry Medical Decision Making - Medical Decision Making Was pt. sent in by a medical professional or institution (, PA, CRUSHER AND BLENDER OPERATOR, urgent care, hospital, or prison...) When possible be specific @ -No Did you speak to anyone other than the patient for history (EMS, parent, family, police, friend...)? What history was obtained from this source @ -No Did you review nursing and triage notes (agree or disagree)? Why? @ -I reviewed and agree with nursing and triage notes Were old charts reviewed (outside hosp., previous admission, EMS record, old EKG, old radiological studies, urgent care reports/EKG's, prison records)? Report findings @ -No old charts were reviewed Differential Diagnosis (chest pain, altered mental status, abdominal pain women, abdominal pain men, vaginal bleeding, weakness, fever, dyspnea, syncope, headache, dizziness, GI bleed, back pain, seizure, CVA, palpatations, mental health)? @ -Acute urinary retention, hip fracture, closed head injury EKG interpreted by me (3pts min.). @ -As above X-rays interpreted by me (1pt min.). @ -X-ray of the right femur was obtained and was interpreted by myself showing valgus impacted right femoral neck fracture. There was remote right inferior pubic ramus fracture. Chest x-ray was obtained and was interpreted by myself showing low lung volumes a generalized hazy appearance CT interpreted by me (1pt min.). @ -CT head was obtained and was interpreted by myself showing no acute intracranial process. There was nonspecific white matter changes. There was no evidence of cervical spine fracture. There was however motion limited exam secondary to patient motion. CT of the abdomen and pelvis with contrast was obtained and was interpreted by myself showing valgus impacted right femoral neck fracture. There is positive megaly. . U/S interpreted by me (1pt. min.). @ -None done What testing was considered but not performed or refused? (CT, X-rays, U/S, labs)? Why? @ -None What meds were considered but not given or refused? Why? @ -None Did you discuss the management of the patient with other professionals (professionals i.e. , PA, CRUSHER AND BLENDER OPERATOR, lab, RT, psych nurse, social media strategist, oakes machine operator, teacher, home lending officer, keycase assembler)? Give summary @ -Yes, Dr. Walter was contacted regarding patient findings and agreed to accept the patient for admission. Was smoking cessation discussed for >3mins.? @ -No Was critical care preformed (if so, how long)? @ -No Were there social determinants of health that impacted care today? How? (Homelessness, low income, unemployed, alcoholism, drug addiction, tra nsportation, low edu. Level, literacy, decrease access to med. care, alf, rehab)? @ -No Was there de-escalation of care discussed even if they declined (Discuss DNR or withdrawal of care, Hospice)? DNR status @ -No What co-morbidities impacted this encounter? (DM, HTN, Smoking, COPD, CAD, Cancer, CVA, ARF, Chemo, Hep., AIDS, mental health diagnosis, sleep apnea, morbid obesity)? @ -Significant past medical history including clinical deafness, hypertension, and lipidemia Was patient admitted / discharged? Hospital course, mention meds given and route, prescriptions, significant lab abnormalities, going to OR and other pertinent info. @ -The patient was seen and evaluated emergency department. Physical exam, the patient was resting in bed, with difficulty with 3 indicating as the patient is deaf. Vital signs however were stable. The patient had some tenderness to palpation of the right femur and therefore imaging or laboratory workup was obtained. All laboratory workup was largely within normal limits and imaging showed right hip fracture. In order to get the imaging, the patient did receive multiple pain medications and Ativan to calm the patient down. Dr. Walter was contacted and accepted the patient for admission. She did request medicine on consult. The patient was admitted in stable condition. Undiagnosed new problem with uncertain prognosis? @ -No Drug Therapy requiring intensive monitoring for toxicity (Heparin, Nitro, Insulin, Cardizem)? @ -No Were any procedures done? @ -No Diagnosis/symptom? @ -Right hip fracture Acute, or Chronic, or Acute on Chronic? @ -Acute Uncomplicated (without systemic symptoms) or Complicated (systemic symptoms)? @ -Complicated Side effects of treatment? @ -No Exacerbation, Progression, or Severe Exacerbation? @ -No Poses a threat to life or bodily function? How? (Chest pain, [place], [place], pneumonia, PE, COPD, DKA, ARF, appy, cholecystitis, CVA, Diverticulitis, Homicidal, [place] fer[place], threat to staff... and all critical care pts) @ -No - Lab Data Result diagrams: 02/20/23 01:19 02/20/23 01:19 Lab Results 02/20/23 02/20/23 Range/Units 01:19 01:19 WBC 9.1 (3.8-10.6) k/uL RBC 4.49 (4.30-5.90) m/uL Hgb 14.6 (13.0-17.5) gm/dL Hct 43.2 (39.0-53.0) % MCV 96.4 (80.0-100.0) fL MCH 32.5 (25.0-35.0) pg MCHC 33.7 (31.0-37.0) g/dL RDW 12.8 (11.5-15.5) % Plt Count 210 (150-450) k/uL MPV 7.8 Neutrophils % 78 % Lymphocytes % 13 % Monocytes % 6 % Eosinophils % 2 % Basophils % 0 % Neutrophils # 7.1 (1.3-7.7) k/uL Lymphocytes # 1.2 (1.0-4.8) k/uL Monocytes # 0.5 (0-1.0) k/uL Eosinophils # 0.2 (0-0.7) k/uL Basophils # 0.0 (0-0.2) k/uL Sodium 137 (137-145) mmol/L Potassium 4.6 (3.5-5.1) mmol/L Chloride 104 (98-107) mmol/L Carbon Dioxide 26 (22-30) mmol/L Anion Gap 7 mmol/L BUN 25 H (9-20) mg/dL Creatinine 1.28 H (0.66-1.25) mg/dL Est GFR (CKD-EPI)AfAm 66 (>60 ml/min/1.73 sqM) Est GFR (CKD-EPI)NonAf 57 (>60 ml/min/1.73 sqM) Glucose 134 H (74-99) mg/dL Calcium 8.9 (8.4-10.2) mg/dL Magnesium 2.0 (1.6-2.3) mg/dL Total Bilirubin 0.7 (0.2-1.3) mg/dL AST 25 (17-59) U/L ALT 25 (4-49) U/L Alkaline Phosphatase 77 (38-126) U/L Total Protein 7.2 (6.3-8.2) g/dL Albumin 3.8 (3.5-5.0) g/dL Lipase 136 (23-300) U/L Disposition Clinical Impression: Closed right hip fracture Disposition: ADMITTED IP TO THIS [facility] Condition: Stable Is patient prescribed a controlled substance at d/c from ED?: No Referrals: Lalo Tubbs MD [Primary Care Provider] - 1-2 days Time of Disposition: 06:00 Decision to Admit Reason: Admit from EC Decision Date: 02/20/23 Decision Time: 06:00
[2023-02-20 01:51] LABS: ALT 25 U/L (4-49); AST 25 U/L (17-59); African American GFR (CKD) 66 (>60 ml/min/1.73 sqM); Albumin 3.8 g/dL (3.5-5.0); Alkaline Phosphatase 77 U/L (38-126); Anion Gap 7 mmol/L; Blood Urea Nitrogen 25 mg/dL (9-20); Calcium 8.9 mg/dL (8.4-10.2); Carbon Dioxide 26 mmol/L (22-30); Chloride 104 mmol/L (98-107); Glucose 134 mg/dL (74-99); Lipase 136 U/L (23-300); Non-African American GFR(CKD) 57 (>60 ml/min/1.73 sqM); Potassium 4.6 mmol/L (3.5-5.1); Sodium 137 mmol/L (137-145); Total Bilirubin 0.7 mg/dL (0.2-1.3); Total Protein 7.2 g/dL (6.3-8.2)
[2023-02-20] MEDS ORDERED: LORazepam 2 MG/ML INJ IV STA (02:18)
[2023-02-20] MEDS ORDERED: fentaNYL (PF) 50 MCG/ML 2 ML AMP IVP STA (02:18)
[2023-02-20] MEDS ORDERED: MORPHINE SULFATE 4 MG/ML SYRINGE IVP STA (05:20)
--- NOTE | 2023-02-20 05:53 | CT ---
EXAMINATION TYPE: CT brain cspine wo con CT DLP: mGycm, Automated exposure control for dose reduction was used. DATE OF EXAM: 02/20/2023 2:49 AM COMPARISON: 09/23/2021 CLINICAL INDICATION:Male, 67 years old with history of Trauma; TECHNIQUE: Brain: Multiple axial CT images of the brain were obtained without IV contrast. Cspine: Axial CT images from the skull base to the inferior aspect of T2 we obtained without intraven ous contrast. Coronal and sagittal reformatted images were also reviewed. FINDINGS: Brain: Extra-axial spaces: No abnormal extra-axial fluid collections. Ventricular system: Dilatation in proportion to cerebral atrophy. Cerebral parenchyma: Cerebral atrophy. No acute intraparenchymal hemorrhage or mass effect. The dee -white junction is well differentiated. Scattered hypoattenuating areas are seen within the white mat ter. Cerebellum: Unremarkable. Mass effect: No evidence of midline shift. Intracranial vasculature: unremarkable Soft tissues: Normal. Calvarium/osseous structures: No depressed skull fracture. Paranasal sinuses and mastoid air cells: Clear. Visualized orbits: Bilateral aphakia Cervical spine: Fracture: None. Osseous structures: Multilevel degenerative disc disease changes with endplate spurring and disc oste ophyte complex's. Vertebral alignment: Within normal limits. Spinal canal/Neural Foramina: Disc osteophyte complexes at C3-C4 and C4-C5. With at least mild spinal canal stenosis. No evidence for significant neural foraminal stenosis. Neck soft tissues: Prevertebral soft tissues are within normal limits. Other: The airway is patent. The lung apices are clear. Atherosclerosis of the carotid bifurcations. Mild paraseptal emphysema. IMPRESSION: Motion limited exam. 1. No acute intracranial process. 2. Nonspecific white matter changes, likely secondary to chronic small vessel ischemic disease. 3. No evidence of cervical spine fracture. 4. Mild multilevel degenerative disc disease.
--- NOTE | 2023-02-20 05:58 | CT ---
EXAMINATION TYPE: CT abdomen pelvis w con CT DLP: 3475 mGycm, Automated exposure control for dose reduction was used. DATE OF EXAM: 02/20/2023 2:51 AM COMPARISON: CT abdomen pelvis most recent from 07/01/2021 CLINICAL INDICATION:Male, 67 years old with history of Acute abdominal pain; TECHNIQUE: Axial CT of the abdomen and pelvis. Sagittal and coronal reformats were created on a [employer] workstation. Contrast used: mL of , 100 cc of Isovue 300. (none if empty) Oral contrast used: (none if empty) FINDINGS: LOWER CHEST: Unremarkable ABDOMEN LIVER: Unremarkable GALLBLADDER AND BILE DUCTS: Unremarkable. PANCREAS: Unremarkable. SPLEEN: Unremarkable. ADRENAL GLANDS: Unremarkable. KIDNEYS AND URETERS: No evidence of hydronephrosis or renal calculus. The ureters are unremarkable. PELVIS BLADDER: Unremarkable REPRODUCTIVE: Prostate is enlarged in size measuring 5.9 cm in transverse dimension. ABDOMEN & PELVIS STOMACH AND BOWEL: No evidence of bowel obstruction. PERITONEUM/RETROPERITONEUM: No evidence of pneumoperitoneum or free fluid. VASCULATURE: No evidence of aortic aneurysm. MUSCULOSKELETAL: Proximal right femoral neck fracture with out significant displacement. There is kapil zelalem impaction. Remote appearing right inferior pubic ramus fracture. LYMPH NODES: No gross evidence f or lymphadenopathy. SOFT TISSUE/ABDOMINAL WALL: Fat-containing inguinal hernias. Fat-containing umbilical hernia. IMPRESSION: 1. Valgus impacted right femoral neck fracture. 2. Prostatomegaly, correlate with serum PSA.
--- NOTE | 2023-02-20 05:59 | XR ---
EXAMINATION TYPE: XR femur RT DATE OF EXAM: 02/20/2023 3:03 AM INDICATION: Patient age:Male; 67 years old; Reason for study: Fall, trauma; COMPARISON: CT same day TECHNIQUE: The right femur was examined in Frontal and lateral projections. FINDINGS/IMPRESSION: Valgus impacted right femoral neck fracture. Injury of the osseous structures appear intact. Remote r ight inferior pubic ramus fracture.
--- NOTE | 2023-02-20 06:00 | XR ---
EXAMINATION TYPE: XR chest 1V DATE OF EXAM: 02/20/2023 3:03 AM COMPARISON: Chest radiographs from 09/23/2021 TECHNIQUE: XR chest 1V Frontal view of the chest. CLINICAL INDICATION:Male, 67 years old with history of Fall, trauma; FINDINGS: Lungs/Pleura: There is no evidence of pleural effusion, focal consolidation, or pneumothorax. Pulmonary vascularity: Unremarkable. Heart/mediastinum: Cardiomediastinal silhouette is enlarged and stable. Musculoskeletal: No acute osseous pathology. IMPRESSION: Low lung volumes with a generalized hazy appearance which could represent atelectasis versus pulmonar y edema correlate with serum BNP.
[2023-02-20] MEDS ORDERED: NALOXONE 0.4 MG/ML 1 ML VIAL IV PRN (06:08)
[2023-02-20 06:51] LABS: Appearance,Urine Clear (Clear); Bacteria,Urine Rare /hpf; Bilirubin,Urine Negative (Negative); Blood,Urine Large (Negative); Color,Urine Light Red; Glucose,Urine (UA) 2+ (Negative); Ketones,Urine Negative (Negative); Leukocyte Esterase,Urine Large (Negative); Nitrite,Urine Negative (Negative); Protein,Urine Trace (Negative); RBC,Urine >182 /hpf (0-5); Specific Gravity,Urine 1.029 (1.001-1.035); Squamous Epithelial Cell,Urine <1 /hpf (0-4); Urobilinogen,Urine <2.0 mg/dL (<2.0); WBC,Urine 55 /hpf (0-5)
[2023-02-20] MEDS ORDERED: HYDROcodone/APAP 5-325MG 1 EACH TAB PO PRN (08:03)
--- NOTE | 2023-02-20 09:13 | XR ---
EXAMINATION TYPE: XR Hip RT and AP Pelvis DATE OF EXAM: 02/20/2023 9:01 AM INDICATION: Patient age:Male; 67 years old; Reason for study: hip fracture; PHH. COMPARISON: Right femur radiograph 02/20/2023 CT abdomen pelvis 02/20/2023 TECHNIQUE: The right hip was examined in the frontal and lateral projections and a AP pelvis. FINDINGS: Acute valgus impacted right femoral neck fracture redemonstrated from prior CT. Remote righ t inferior pubic ramus fracture is better appreciated on prior CT. Prostate calcification. IMPRESSION: Acute valgus impacted right femoral neck fracture redemonstrated from prior CT today.
[2023-02-20] MEDS ORDERED: ONDANSETRON 4 MG/2 ML VIAL IVP PRN (09:42)
[2023-02-20] MEDS: MORPHINE SULFATE 4 MG/ML SYRINGE IVP PRN ×4 (10:08→22:45)
[2023-02-20 11:15] LABS: Partial Thromboplastin Time 24.7 sec (22.0-30.0)
--- NOTE | 2023-02-20 13:08 | P.HPOR ---
History of Present Illness H&P Date: 02/20/23 Patient is a 67-year-old male with multiple medical problems including prior CVA, vascular dementia, who is nonverbal but resides at a half-way that presented to [facility] emergency department today with complaints of right hip pain following a fall. Patient is nonverbal and history is unable to be obtained from the patient. History is obtained from nursing, and prior trading. Apparently the patient had an unwitnessed fall at his nursing facility. He was found to have pain in the right hip. X-rays and CT scan obtained in the emergency department revealed a right femoral neck fracture. Patient is admitted under the care of orthopedic surgery with a consult placed to internal medicine for preoperative medical evaluation. Patient is evaluated bedside in the emergency department this morning. He is nonverbal but appears uncomfortable. Past Medical History Past Medical History: COPD, CVA/TIA, Dementia, Hearing Disorder / Deafness, H yperlipidemia, Hypertension, Prostate Disorder Additional Past Medical History / Comment(s): AMS changes/ischemic encephalopathy/vascular dementia/CPD/ASHD/presbycusis. He had a LP performed and was transferred to [facility]. 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 [facility] states they were also told uncontrolled HTN/hydrocephalus/advance dementia/uti. Other hx: 2013 CVA without residual, [place] bilaterally/speak in R ear, occasional urinary incontinence/frequency, CKD, nephrolithiasis, BPH, occasional back pain. History of Any Multi-Drug Resistant Organisms: None Reported Past Surgical History: Appendectomy Additional Past Surgical History / Comment(s): colonoscopy Past Anesthesia/Blood Transfusion Reactions: No Reported Reaction Past Psychological History: Anxiety, Depression Smoking Status: Former smoker Past Alcohol Use History: None Reported Past Drug Use History: None Reported - Past Family History Mother Family Medical History: Dementia, Hypertension Father Family Medical History: Cancer Additional Family Medical History / Comment(s): Lung cancer. Father was a smoker. Medications and Allergies Home Medications Medication Instructions Recorded Confirmed Type Atorvastatin [Lipitor] 10 mg PO HS 04/14/20 02/20/23 History Folic Acid 0.4 mg PO DAILY 04/14/20 02/20/23 History Propranolol HCl [Inderal] 60 mg PO DAILY 04/14/20 02/20/23 History Thiamine HCl [Vitamin B-1] 100 mg PO DAILY 04/14/20 02/20/23 History amLODIPine [Norvasc] 10 mg PO DAILY 04/14/20 02/20/23 History Acetaminophen Tab [Tylenol] 650 mg PO Q8H PRN 06/14/20 02/20/23 History Aspirin 81 mg PO DAILY 06/14/20 02/20/23 History QUEtiapine [SEROquel] 100 mg PO TID@0900,1300,2100 02/20/23 02/20/23 History Sertraline [Zoloft] 25 mg PO DAILY 02/20/23 02/20/23 History Allergies Allergy/AdvReac Type Severity Reaction Status Date / Time No Known Allergies Allergy Verified 02/20/23 07:02 Physical Examination On examination, patient is lying on the gurney. He appears uncomfortable. His head appears normocephalic and atraumatic. His breathing appears nonlabored. On inspection of his bilateral upper extremities, there are no obvious deformities or signs of trauma. On inspection of the left lower extremity, no obvious deformities or signs of trauma. No pain with palpation of the left hip, thigh, knee, lower leg, ankle, foot. There is no pain with passive range of motion of the left hip. There is diffuse, severe pain with palpation of the right hip. No pain on palpation of the right knee, lower leg, ankle, foot. Severe pain with any attempts at logrolling of the right hip. The right lower extremity is warm and well perfused, the dorsalis pedis pulse easily palpable. Motor and sensory function is grossly intact. Results Right hip and pelvis x-ray 02/20/23: Acute right femoral neck fracture CT scan pelvis 02/20/23: Acute right femoral neck fracture - Labs Labs: Abnormal Lab Results - Last 24 Hours (Table) 02/20/23 02/20/23 Range/Units 01:19 06:27 BUN 25 H (9-20) mg/dL Creatinine 1.28 H (0.66-1.25) mg/dL Glucose 134 H (74-99) mg/dL Urine Protein Trace H (Negative) Urine Glucose (UA) 2+ H (Negative) Urine Blood Large H (Negative) Ur Leukocyte Esterase Large H (Negative) Urine RBC >182 H (0-5) /hpf Urine WBC 55 H (0-5) /hpf Urine WBC Clumps Few H (None) /hpf Urine Bacteria Rare H (None) /hpf H & H 02/20/23 Range/Units 01:19 Hgb 14.6 (13.0-17.5) gm/dL Hct 43.2 (39.0-53.0) % Coagulation 02/20/23 Range/Units 10:52 INR 1.0 (<1.2) Result Diagrams: 02/20/23 01:19 02/20/23 01:19 Assessment and Plan Assessment: Right acute femoral neck fracture Plan: - Clinical findings were discussed with the patient and his nurse. Recommend a right hip hemiarthroplasty for patient's right femoral neck fracture tomorrow. We will await evaluation by internal medicine to obtain preoperative medical clearance prior to surgery. Patient will be made NPO at midnight. Patient's guardian will be contacted to further discuss surgery to obtain consent. - Bed rest. Strict nonweightbearing right lower extremity. Pain management as needed. - NPO diet at midnight.
[2023-02-20] MEDS: QUEtiapine 100 MG TAB PO SCH ×2 (14:10→21:42)
--- NOTE | 2023-02-20 14:38 | P.CONS ---
History of Present Illness - Reason for Consult Consult date: 02/20/23 Medical management - History of Present Illness History of present illness; patient is a 67-year-old gentleman with past medical history significant for deafness, hypertension, urinary retention who presented to the ER from the [place] [facility] after a fall. Unable to obtain a detailed review of systems or history from the patient, most of the history is taken from EMR, according to records, patient had unwitnessed fall. Patient never lost consciousness. Patient was worked up in the ER. Initial lab work done in the ER showed wbCs 9.1, hemoglobin 14.6, platelet count 210, sodium 137 potassium 4.6, BUN 25, creatinine 1.28 CT head done showed no acute intra cranial process CT cervical spine showed no evidence of cervical spine fracture CT abdominal and pelvis done showed valgus impacted right femoral neck fracture, prostatomegaly X-ray femur showed right femoral neck fracture Chest x-ray done in the ER showed low lung volumes generalized hazy appearance could represent atelectasis REVIEW OF SYSTEMS: review of systems cannot be obtained because the patient a poor historian PHYSICAL EXAMINATION: GENERAL: The patient is alert , not in any acute distress. Well developed, well nourished. HEENT: Pupils are round and equally reacting to light. EOMI. No scleral icterus. No conjunctival pallor. Normocephalic, atraumatic. No pharyngeal erythema. No thyromegaly. CARDIOVASCULAR: S1 and S2 present. No murmurs, rubs, or gallops. PULMONARY: Chest is clear to auscultation, no wheezing or crackles. ABDOMEN: Soft, nontender, nondistended, normoactive bowel sounds. No palpable organomegaly. MUSCULOSKELETAL: Right hip externally rotated, tenderness EXTREMITIES: No cyanosis, clubbing, or pedal edema. NEUROLOGICAL: Gross neurological examination did not reveal any focal deficits. SKIN: No rashes. Assessment and plan right femoral neck fracture Fall Acute kidney injury hypertension Dementia Monitor vital signs Monitor CBC Monitor Ordered EKG Ordered troponin Continue pain management per orthopedics DVT prophylaxis per orthopedics Resume home meds Continue same treatment. Continue with symptomatic treatment. Resume home medication. Monitor labs and vitals. DVT and GI prophylaxis. Further recommendations as per clinical course of the patient Dictation was produced using [employer] dictation software. please excuse any grammatical, word or spelling errors. Past Medical History Past Medical History: COPD, CVA/TIA, Dementia, Hearing Disorder / Deafness, Hyperlipidemia, Hypertension, Prostate Disorder Additional Past Medical History / Comment(s): AMS changes/ischemic encephalopathy/vascular dementia/CPD/ASHD/presbycusis. He had a LP performed and was transferred to [facility]. Discharge diagnosis from [facility] list: severe generalized intracranial leukoencephalopathy/cerebral ventriculomegaly/cerebral atrophy/neurogenic dysphagia/UTI/urinary retention/constipation/suspected dysautonomally, acute encephalopathy. [facility] states they were also told uncontrolled HTN/hydrocephalus/advance dementia/uti. Other hx: 2013 CVA without residual, [place] bilaterally/speak in R ear, occasional urinary incontinence/frequency, CKD, nephrolithiasis, BPH, occasional back pain. History of Any Multi-Drug Resistant Organisms: None Reported Past Surgical History: Appendectomy Additional Past Surgical History / Comment(s): colonoscopy Past Anesthesia/Blood Transfusion Reactions: No Reported Reaction Past Psychological History: Anxiety, Depression Smoking Status: Former smoker Past Alcohol Use History: None Reported Past Drug Use History: None Reported - Past Family History Mother Family Medical History: Dementia, Hypertension Father Family Medical History: Cancer Additional Family Medical History / Comment(s): Lung cancer. Father was a smoker. Medications and Allergies Home Medications Medication Instructions Recorded Confirmed Type Atorvastatin [Lipitor] 10 mg PO HS 04/14/20 02/20/23 History Folic Acid 0.4 mg PO DAILY 04/14/20 02/20/23 History Propranolol HCl [Inderal] 60 mg PO DAILY 04/14/20 02/20/23 History Thiamine HCl [Vitamin B-1] 100 mg PO DAILY 04/14/20 02/20/23 History amLODIPine [Norvasc] 10 mg PO DAILY 04/14/20 02/20/23 History Acetaminophen Tab [Tylenol] 650 mg PO Q8H PRN 06/14/20 02/20/23 History Aspirin 81 mg PO DAILY 06/14/20 02/20/23 History QUEtiapine [SEROquel] 100 mg PO TID@0900,1300,2100 02/20/23 02/20/23 History Sertraline [Zoloft] 25 mg PO DAILY 02/20/23 02/20/23 History Allergies Allergy/AdvReac Type Severity Reaction Status Date / Time No Known Allergies Allergy Verified 02/20/23 07:02 Physical Exam Vitals: Vital Signs Temp Pulse Resp BP Pulse Ox 02/20/23 10:06 18 165/91 95 02/20/23 07:52 98.1 F 100 18 156/102 92 L 02/20/23 06:36 106 H 19 151/105 92 L 02/20/23 05:38 111 H 19 150/122 94 L 02/20/23 04:41 108 H 19 146/101 93 L 02/20/23 02:08 97.3 F L 112 H 18 155/110 96 02/20/23 01:00 92 18 156/101 92 L 02/20/23 00:00 101 H 18 151/95 95 Intake and Output 02/19/23 02/20/23 02/20/23 22:59 06:59 14:59 Other: Weight 117.934 kg Results CBC & Chem 7: 02/20/23 01:19 02/20/23 01:19 Labs: Abnormal Lab Results - Last 24 Hours (Table) 02/20/23 02/20/23 Range/Units 01:19 06:27 BUN 25 H (9-20) mg/dL Creatinine 1.28 H (0.66-1.25) mg/dL Glucose 134 H (74-99) mg/dL Urine Protein Trace H (Negative) Urine Glucose (UA) 2+ H (Negative) Urine Blood Large H (Negative) Ur Leukocyte Esterase Large H (Negative) Urine RBC >182 H (0-5) /hpf Urine WBC 55 H (0-5) /hpf Urine WBC Clumps Few H (None) /hpf Urine Bacteria Rare H (None) /hpf
[2023-02-20] MEDS: ATORVASTATIN 10 MG TAB PO SCH (21:42)
[2023-02-21] MEDS ORDERED: TRANEXAMIC ACID 1,000 MG in SODIUM CHLORIDE 0.9% 100 ML IVPB PRN ×4 (06:00)
[2023-02-21] MEDS: MORPHINE SULFATE 4 MG/ML SYRINGE IVP PRN ×2 (06:09→10:16)
[2023-02-21] MEDS: FOLIC ACID 1 MG TAB PO SCH (09:16)
[2023-02-21] MEDS: THIAMINE 100 MG TAB PO SCH (09:16)
[2023-02-21] MEDS: QUEtiapine 100 MG TAB PO SCH ×3 (09:57→21:39)
[2023-02-21] MEDS: SERTRALINE 25 MG TAB PO SCH (09:58)
[2023-02-21] MEDS ORDERED: SODIUM CHLORIDE 0.9% 1,000 ML IV SCH (10:00)
[2023-02-21] MEDS ORDERED: IV FLUID CONTINUATION 1,000 ML IV ONE (10:30)
[2023-02-21] MEDS ORDERED: LACTATED RINGERS 1,000 ML IV ONE (10:30)
[2023-02-21] MEDS ORDERED: ONDANSETRON 4 MG/2 ML VIAL IVP ONE (10:47)
[2023-02-21] MEDS ORDERED: NEOSTIGMINE 1 MG/ML 10 ML VIAL ONE (10:48)
[2023-02-21] MEDS ORDERED: DEXAMETHASONE SOD PHOSPHATE 4 MG/ML 1 ML VIAL IVP ONE (10:48)
[2023-02-21] MEDS ORDERED: ROCURONIUM 10 MG/ML (5 ML VIAL) IV ONE (10:48)
[2023-02-21] MEDS ORDERED: ESMOLOL 100 MG/10 ML VIAL ONE (10:48)
[2023-02-21] MEDS ORDERED: hydrALAZINE HCL 20 MG/ML 1 ML VIAL ONE (10:48)
[2023-02-21] MEDS ORDERED: LIDOCAINE 2% INJ 20 MG/ML (2 ML VIAL) ONE (10:48)
[2023-02-21] MEDS ORDERED: TRANEXAMIC 1,000 MG/100ML-NACL PREMIX BAG ONE (10:48)
[2023-02-21] MEDS ORDERED: GLYCOPYRROLATE 0.2 MG/ML 2 ML VIAL ONE (10:48)
[2023-02-21] MEDS ORDERED: PROPOFOL 10 MG/ML 20 ML VIAL IV ONE (10:48)
[2023-02-21] MEDS ORDERED: fentaNYL (PF) 50 MCG/ML 2 ML AMP ONE (10:48)
[2023-02-21] MEDS: ROPIVACAINE/EPI/CLONIDINE/KET 50 ML SYRINGE MISCELLANE PRN ×2 (11:41→12:45)
--- NOTE | 2023-02-21 12:17 | P.PN ---
Subjective Progress Note Date: 02/21/23 patient is a 67-year-old gentleman with past medical history significant for deafness, hypertension, urinary retention who presented to the ER from the alf after a fall. Unable to obtain a detailed review of systems or history from the patient, most of the history is taken from EMR, according to records, patient had unwitnessed fall. Patient never lost consciousness. Patie nt was worked up in the ER. Initial lab work done in the ER showed wbCs 9.1, hemoglobin 14.6, platelet count 210, sodium 137 potassium 4.6, BUN 25, creatinine 1.28 CT head done showed no acute intra cranial process CT cervical spine showed no evidence of cervical spine fracture CT abdominal and pelvis done showed valgus impacted right femoral neck fracture, prostatomegaly X-ray femur showed right femoral neck fracture Chest x-ray done in the ER showed low lung volumes generalized hazy appearance could represent atelectasis 02/21. Patient seen and examined. Troponin and proBNP are normal. EKG reviewed, no evidence of any ST segment elevation or T-wave inversions. Patient is medically cleared for surgery with moderate risk of complications. Patient is not the best historian, he refuses to answer REVIEW OF SYSTEMS: Review of systems cannot be obtained because of patient's current mental status PHYSICAL EXAMINATION: GENERAL: The patient is alert , not in any acute distress. Well developed, well nourished. HEENT: Pupils are round and equally reacting to light. EOMI. No scleral icterus. No conjunctival pallor. Normocephalic, atraumatic. No pharyngeal erythema. No thyromegaly. CARDIOVASCULAR: S1 and S2 present. No murmurs, rubs, or gallops. PULMONARY: Chest is clear to auscultation, no wheezing or crackles. ABDOMEN: Soft, nontender, nondistended, normoactive bowel sounds. No palpable organomegaly. MUSCULOSKELETAL: Right hip tenderness, externally rotated EXTREMITIES: No cyanosis, clubbing, or pedal edema. NEUROLOGICAL: Gross neurological examination did not reveal any focal deficits. SKIN: No rashes. Assessment and plan right femoral neck fracture Fall Acute kidney injury hypertension Dementia Monitor vital signs Monitor CBC Monitor CMP Continue IV fluids Continue pain management per orthopedics DVT prophylaxis per orthopedics Troponin and proBNP are normal. EKG reviewed, no evidence of any ST segment e levation or T-wave inversions. Patient is medically cleared for surgery with moderate risk of complications. Labs and medication were reviewed.. Continue same treatment. Continue with symptomatic treatment. Resume home medication. Monitor labs and vitals. DVT and GI prophylaxis. Further recommendations as per clinical course of the patient Dictation was produced using [employer] dictation software. please excuse any grammatical, word or spelling errors. Objective - Vital Signs Vital signs: Vital Signs Temp 99.8 F H 02/21/23 10:33 Pulse 107 H 02/21/23 10:35 Resp 21 02/21/23 10:35 BP 164/97 02/21/23 10:33 Pulse Ox 94 L 02/21/23 10:35 FiO2 Intake & Output 02/20/23 02/21/23 02/21/23 18:59 06:59 18:59 Intake Total 50 Output Total 200 500 Balance -200 -500 50 Weight 117.934 kg Intake: IV 50 Output: Urine 200 500 Other: Voiding Method Indwelling Catheter Indwelling Catheter - Labs CBC & Chem 7: 02/20/23 01:19 02/20/23 01:19
[2023-02-21] MEDS ORDERED: hydrOXYzine pamoate 25 MG CAP PO PRN (13:21)
--- NOTE | 2023-02-21 13:21 | P.OP ---
Date of Procedure: 02/21/23 Preoperative Diagnosis: 1. Right displaced subcapital femoral neck fracture 2. Dementia 3. Legally deaf 4. COPD, former smoker 5. History of stroke 6. BMI 37 Postoperative Diagnosis: Same Procedure(s) Performed: Right direct anterior hip hemiarthroplasty Implants: Aidan accolade C size #5 standard offset, 54 mm outer diameter bipolar head, 28 mm inner diameter +0 bipolar head Anesthesia: GETA Surgeon: Alonso Roy History Card Clerk #1: Don Godwin Estimated Blood Loss (ml): 200 IV fluids (ml): 600 Urine output (ml): 200 Pathology: none sent Condition: stable Disposition: PACU Indications for Procedure: I met with the patient and their family to discuss treatment options. The patient has a displaced femoral neck fracture and based on their age, activity level, and medical comorbidities I recommended a hip hemiarthroplasty to facilitate early mobilization. My recommendation was to perform the hemiarthroplasty through a direct anterior approach to help lower the risk of dislocation and improve postoperative recovery and use cemented fixation of the femoral component to reduce the risk of fracture and postoperative thigh pain. We discussed the potential risks and complications of a hemiarthroplasty for displaced femoral neck fracture at length. Risks discussed include are certainly not limited to risks from anesthesia, superficial infection requiring local wound care and possibly surgical debridement, deep periprosthetic joint infection and the treatment for this, damage to local blood vessels or nerves particularly the lateral femoral cutaneous nerve, intraoperative fracture, postoperative periprosthetic fracture, leg length discrepancy, hip dislocation, aseptic loosening, groin pain, thigh pain, progression of arthritis requiring conversion to total hip arthroplasty, complications related to cementing the component, an inability to regain preinjury level of function, DVT, PE, acute coronary event, stroke, pneumonia, urinary tract infection, failure to thrive, and possibly . The patient and their family understand that while these are the most common complications other less common complications are possible. They provided their verbal and written consent to go forward with surgery. Operative Findings: Displaced subcapital femoral neck fracture with large hemarthrosis consistent with an acute femoral neck fracture Description of Procedure: The patient was identified in the preoperative holding area and the correct hip was marked with my initials. I reviewed the procedure and consent with the patient. All of their questions were answered. The patient was then brought back into the operating room by anesthesia. While on the [facility] anesthesia was administered by the anesthesia team. Preoperative antibiotics and tranexamic acid were also given. After the patient was under anesthesia I examined their ankles to determine their preoperative leg length discrepancy. The skin over the anterior aspect of the hip was shaved to remove hair over the site of planned incision. Both feet and ankles were padded with webril and boots for the [place] were applied. The patient was then carefully transferred onto the [place] table. A perineal post was immediately placed. The arms were placed on arm holders and were well-padded. Both boots were secured to the spars on the [place] table. The patient was positioned so that the pelvis was centered over the post. Nonsterile drapes were applied. A timeout was performed identifying the correct patient, operative extremity, and procedure. At this point fluoroscopy was brought in to take preoperative images of the pelvis and operative hip. A metallic bar was used to create a bi-ischial line for use as a reference to leg length adjustments during the procedure. Global offset was also measured on both the operative and nonoperative leg. Fluoroscopy was then brought out and a pre-scrub using a chlorhexidine scrub brush was performed. The operative limb was then prepped and draped in the standard sterile fashion. An anterior longitudinal incision was made lateral and distal to the ASIS. The skin and subcutaneous tissues were incised sharply. The underlying tensor fascia was identified and incised in its midportion. The fascia was dissected free from the underlying muscle and the muscle belly was retracted. A blunt tipped cobra retractor was placed over the superior neck under the muscle fibers of the gluteus minimus. The deep enveloping fascia of the tensor was incised. The anterior leash of vessels were then identified and cauterized. The fascia between the rectus and the capsule was then incised and the pre-capsular fat was excised. A second Cobra was placed inferior to the neck. The interval between the rectus and iliocapsularis and the hip capsule was developed and a retractor was placed carefully over the anterior rim of the acetabulum. A T-shaped anterior capsulotomy was performed. A hemarthrosis consistent with a femoral neck fracture was identified. The superior capsular leaflet was left in place in the inferior capsular flap was excised. The Cobra retractors were placed intracapsularly. A displaced femoral neck fracture was then identified. We then made a femoral neck osteotomy according to preoperative and intraoperative templating and confirmed the level of the osteotomy using fluoroscopic imaging. The femoral head was removed, passed off to the back table, and sized. The superior capsular flap was excised. On inspection of the acetabulum there were minimal degenerative changes with intact cartilage. Attention was then turned to the femur. The remnant dorsal lateral capsule was excised. The short external rotators were visible and protected. A bone hook was used to confirm appropriate translation of the trochanter away from the acetabulum. The leg was then extended and adducted and the bone hook was used to elevate the femur for broaching. A box osteotome and blunt tipped canal sound was then utilized to gain access to the femoral canal. We then sequentially broached the femur in appropriate anteversion until torsional stability was achieved and the implant was felt to have reached the appropriate size to allow trialing. The neck cut was brought flush to the trial broach with a calcar planar. A trial neck and head were then placed onto the broach and the hip was atraumatically reduced under direct visualization. External rotation to 90 was performed to assess stability. Fluoroscopy was brought in. An AP and lateral fluoroscopic image of the proximal femur was obtained to assess position and fill of the trial broach. An AP of the pelvis was then obtained and matched to the preoperative image taken. A bi-ischial bar was then placed and measurements were taken to assess changes in length and offset. The hip was then carefully dislocated, the proximal femur was exposed, and the trial implants were removed. The proximal femur was then prepared for cementing. The canal was thoroughly irrigated with pulsatile lavage to remove blood and marrow contents. A cement restrictor was placed to a depth just distal to the tip of the final implant. Epinephrine-soaked gauze was then packed into the proximal femur. 2 bags of cement with antibiotics were then mixed using a centrifuge and placed into a cement gun. Anesthesia was notified that cementing was about to commence to make sure the patient was appropriately ventilated and hydrated. Once the cement had reached appropriate consistency, the cement gun was used to fill the canal in a retrograde fashion starting at the restrictor. Cement was then pressurized into the canal with a blue tipped audio visual collections coordinator. The stem was then carefully introduced into the cement taking care to guide the implant into appropriate version. The stem was held in position until the cement had fully set. All extra cement was removed while the cement was hardening. The trunnion was cleansed and the final head was tapped into place to engage the Tolentino taper. The acetabulum was irrigated and visualized to be free of debris. The hip was carefully reduced. Stability was checked clinically with external rotation to 90 and there was no evidence of instability. Final fluoroscopic images were taken. The wound was then thoroughly irrigated with Irrisept. 3 L of sterile saline was irrigated through the wound using pulsatile lavage. Local anesthetic cocktail was injected into the soft tissues around the surgical field. The wound was then closed in layers. A sterile dressing was placed over the surgical incision. The drapes were taken down and the patient was carefully transferred off of the [place] table. Following removal of the boots the leg lengths felt acceptable. The patient was then taken to recovery room having tolerated the procedure well. Don Godwin PA-C was required as a skilled accounts receivable assistant for patient positioning, surgical exposure, retraction, placement of implants, and closure of the surgical wound. PLAN: The patient can weight-bear as tolerated on the operative extremity. 2 doses of postoperative antibiotics and will discharge the patient home on doxycycline given his hygiene status and obesity. DVT prophylaxis with aspirin 81 mg twice a day based on preoperative risk stratification. Physical therapy for gait training.
[2023-02-21] MEDS ORDERED: LACTATED RINGERS 1,000 ML IV SCH (13:30)
--- NOTE | 2023-02-21 14:10 | FL ---
Fluoroscopy INDICATION: Pain FINDINGS: Fluoroscopy time: 27 seconds. Total dose area product (DAP) in uGy*m?, mGy*cm? (or similar): 1.4987 Images obtained: 0. IMPRESSIONS: 1. Documentation of fluoroscopy.
--- NOTE | 2023-02-21 14:27 | XR ---
Fluoroscopy INDICATION: Pain FINDINGS: Fluoroscopy time: 27 seconds. Total dose area product (DAP) in uGy*m?, mGy*cm? (or similar): 1.4987 Images obtained: 7. IMPRESSIONS: 1. Documentation of fluoroscopy.
[2023-02-21 15:17] LABS: Glucose,Whole Blood 213 mg/dL (70-110)
[2023-02-21] MEDS ORDERED: METOPROLOL TARTRATE 5 MG/5 ML VIAL IVP ONE (15:28)
[2023-02-21 15:59] LABS: HCT 45.3 % (39.0-53.0); HGB 14.2 gm/dL (13.0-17.5); Hypochromasia Moderate; MCH 32.1 pg (25.0-35.0); MCHC 31.4 g/dL (31.0-37.0); Macrocytosis Slight; Mean Platelet Volume 7.9; Platelet Count 299 k/uL (150-450); RBC 4.44 m/uL (4.30-5.90); RDW 12.9 % (11.5-15.5); WBC 27.6 k/uL (3.8-10.6)
[2023-02-21 16:08] LABS: AST 37 U/L (17-59); African American GFR (CKD) 43 (>60 ml/min/1.73 sqM); Albumin 3.7 g/dL (3.5-5.0); Albumin/Globulin Ratio 1.1; Alkaline Phosphatase 90 U/L (38-126); Anion Gap 22 mmol/L; Blood Urea Nitrogen 24 mg/dL (9-20); Calcium 8.8 mg/dL (8.4-10.2); Carbon Dioxide 14 mmol/L (22-30); Chloride 106 mmol/L (98-107); Globulin 3.4 g/dL; Glucose 226 mg/dL (74-99); Non-African American GFR(CKD) 37 (>60 ml/min/1.73 sqM); Potassium 4.6 mmol/L (3.5-5.1); Sodium 142 mmol/L (137-145); Total Bilirubin 0.7 mg/dL (0.2-1.3); Total Protein 7.1 g/dL (6.3-8.2)
[2023-02-21 16:11] LABS: Glucose,Whole Blood 218 mg/dL (70-110)
[2023-02-21] MEDS: LACTATED RINGERS 1,000 ML IV SCH ×3 (16:12→17:18)
[2023-02-21] MEDS ORDERED: NALOXONE 0.4 MG/ML 1 ML VIAL IV PRN (16:17)
[2023-02-21 16:18] LABS: ALT 41 U/L (4-49)
[2023-02-21 16:22] LABS: MCV 102.2 fL (80.0-100.0)
[2023-02-21 16:45] LABS: ABG Base Excess -7.6 mmol/L; ABG HCO3 20 mmol/L (21-25); ABG Oxygen Saturation 99.1 % (94-97); ABG PCO2 44 mmHg (35-45); ABG PH 7.26 (7.35-7.45); ABG PO2 276 mmHg (83-108); ABG TCO2 21 mmol/L (19-24); Allen Test Performed? Yes
--- NOTE | 2023-02-21 16:45 | XR ---
EXAMINATION TYPE: XR chest 1V portable DATE OF EXAM: 02/21/2023 4:39 PM COMPARISON: Chest radiographs from TECHNIQUE: XR chest 1V portable Frontal view of the chest. CLINICAL INDICATION:Male, 67 years old with history of Tube placement; FINDINGS: Lungs/Pleura: There is no evidence of pleural effusion, focal consolidation, or pneumothorax. Pulmonary vascularity: Pulmonary vascular congestion. Heart/mediastinum: Cardiomediastinal silhouette is unremarkable. Musculoskeletal: No acute osseous pathology. Other findings: None Lines/Tubes: Endotracheal tube with distal tip 5.4 cm above the ritesh. Nasogastric tube with its distal tip and side-port projecting under the diaphragm. IMPRESSION: 1. Support tubes in appropriate position. 2. Pulmonary vascular congestion.
--- NOTE | 2023-02-21 17:05 | P.PN ---
Progress Note - Text Progress Note Date: 02/21/23 Anesthesiology Update After surgery and recovery room upon getting the patient ready for transfer to floor, the patient appeared to have a seizure with extension of the left side of the body contraction of the right side of the body. This occurred about 1508 hrs. At this time patient appeared to have some respiratory distress and increase in respiratory rate to the mid 30s. Increased work of breathing. Heart rate also jumped to the 140s. Patient was unresponsive at this time. Assisted ventilations were given via Ambu bag for a few minutes and then patient was placed on a simple mask. Patient main obtained 92-94% on 5-7 L simple mask. Still nonresponsive to verbal stimuli minimally responsive to physical stimulus. New IV was started labs were drawn. Blood sugar was over 200. EKG was sinus tachycardia. Metoprolol 2.5 mg was given heart rate came down to 105- 110. With the increased oxygen requirement and requiring simple mask to maintain a stat over 90 decision was made to elevate level of care. JESUS was then paged and then charge nurse Cony came to the recovery room. Decision was made to intubate for airway protection and then transferred to the ICU. LUHA aware, family aware, Manuela aware. Report given to nurse
[2023-02-21 17:23] LABS: Magnesium 2.3 mg/dL (1.6-2.3)
[2023-02-21] MEDS: PANTOPRAZOLE 40 MG/10 ML VIAL IV SCH (18:54)
[2023-02-21] MEDS: IPRATROPIUM-ALBUTEROL 3 ML NEB INHALATION SCH ×2 (20:14→23:18)
[2023-02-21] MEDS: ATORVASTATIN 10 MG TAB PO SCH (21:39)
[2023-02-21] MEDS: SENNOSIDES-DOCUSATE SODIUM 1 EACH TAB PO SCH (21:39)
[2023-02-21] MEDS: CHLORHEXIDINE GLUCONATE 15 ML CUP MUCOUS MEM SCH (21:40)
[2023-02-21] MEDS: ASPIRIN 81 MG PO SCH (21:40)
[2023-02-21] MEDS: levETIRAcetam IV 500 MG/5 ML VIAL IVP SCH (21:40)
[2023-02-21 22:44] LABS: Glucose,Whole Blood 150 mg/dL (70-110)
[2023-02-22 00:17] LABS: Glucose,Whole Blood 167 mg/dL (70-110)
[2023-02-22] MEDS: INSULIN ASPART (NovoLOG) 100 UNIT/ML VIAL SQ SCH ×4 (00:59→17:57)
[2023-02-22 04:27] LABS: Basophils % (A) 0 %; Eosinophils # (A) 0.2 k/uL (0-0.7); Eosinophils % (A) 1 %; HCT 38.6 % (39.0-53.0); HGB 12.6 gm/dL (13.0-17.5); Lymphocytes # (A) 0.9 k/uL (1.0-4.8); Lymphocytes % (A) 6 %; MCHC 32.5 g/dL (31.0-37.0); MCV 98.4 fL (80.0-100.0); Monocytes # (A) 1.2 k/uL (0-1.0); Monocytes % (A) 7 %; Neutrophils # (A) 13.1 k/uL (1.3-7.7); Neutrophils % (A) 85 %; Platelet Count 170 k/uL (150-450); RBC 3.93 m/uL (4.30-5.90); RDW 13.1 % (11.5-15.5); WBC 15.5 k/uL (3.8-10.6)
[2023-02-22] MEDS: IPRATROPIUM-ALBUTEROL 3 ML NEB INHALATION SCH ×6 (04:29→20:16)
[2023-02-22 04:55] LABS: ALT 20 U/L (4-49); AST 27 U/L (17-59); African American GFR (CKD) 44 (>60 ml/min/1.73 sqM); Albumin 2.8 g/dL (3.5-5.0); Alkaline Phosphatase 71 U/L (38-126); Anion Gap 7 mmol/L; Blood Urea Nitrogen 34 mg/dL (9-20); Calcium 8.2 mg/dL (8.4-10.2); Carbon Dioxide 23 mmol/L (22-30); Chloride 105 mmol/L (98-107); Glucose 146 mg/dL (74-99); Magnesium 2.6 mg/dL (1.6-2.3); Non-African American GFR(CKD) 38 (>60 ml/min/1.73 sqM); Potassium 4.6 mmol/L (3.5-5.1); Sodium 135 mmol/L (137-145); Total Bilirubin 0.4 mg/dL (0.2-1.3); Total Protein 5.8 g/dL (6.3-8.2)
[2023-02-22 06:07] LABS: Glucose,Whole Blood 151 mg/dL (70-110)
[2023-02-22 06:13] LABS: ABG Base Excess -0.3 mmol/L; ABG HCO3 25 mmol/L (21-25); ABG Oxygen Saturation 98.9 % (94-97); ABG PCO2 44 mmHg (35-45); ABG PH 7.36 (7.35-7.45); ABG PO2 156 mmHg (83-108); ABG TCO2 26 mmol/L (19-24); Allen Test Performed? Yes
[2023-02-22] MEDS: LACTATED RINGERS 1,000 ML IV SCH ×2 (06:17→18:33)
--- NOTE | 2023-02-22 07:01 | XR ---
EXAMINATION TYPE: XR chest 1V portable DATE OF EXAM: 02/22/2023 5:28 AM COMPARISON: Chest radiographs from TECHNIQUE: XR chest 1V portable Portable AP radiograph of the chest. CLINICAL INDICATION:Male, 67 years old with history of Tube placement; FINDINGS: Patient is rotated which limits evaluation. Lungs/Pleura: There is no evidence of pleural effusion, focal consolidation, or pneumothorax. Chroni c senescent parenchymal change. Pulmonary vascularity: Mild pulmonary vascular congestion. Heart/mediastinum: Cardiomediastinal silhouette is prominent in size. Musculoskeletal: No acute osseous pathology. Other findings: None Lines/Tubes: Stable position of endotracheal and enteric tubes. IMPRESSION: 1. Stable position of support tubes. 2. Mild pulmonary vascular congestion.
--- NOTE | 2023-02-22 08:27 | P.PN ---
Subjective Progress Note Date: 02/22/23 Events from yesterday postoperatively noted as well as discussion with nurse at bedside. Following an uncomplicated surgery the patient became tachypneic in the recovery room prior to transfer to the floor. He was also suspected to have had a seizure. Given his respiratory distress decision was made by anesthesia to intubate the patient and transfer him to the ICU. He is been intubated and sedated overnight. No acute events overnight per nursing. This morning the patient remains intubated and sedated on a ventilator. Objective - Vital Signs Vital signs: Vital Signs Temp 97.8 F 02/22/23 04:00 Pulse 75 02/22/23 08:00 Resp 14 02/22/23 07:00 BP 108/72 02/22/23 07:00 Pulse Ox 97 02/22/23 07:00 FiO2 40 02/22/23 07:42 Intake & Output 02/21/23 02/22/23 02/22/23 18:59 06:59 18:59 Intake Total 785 1076.709 75 Output Total 430 447 45 Balance 355 629.709 30 Weight 117.934 kg 113.7 kg Intake: IV 785 930 75 Invasive Line 1 10 30 Lactated Ringers 1,000 ml 75 900 75 @ 75 mls/hr IV .[id number] SKINNY Rx#:[id number] Intake, IV Titration 146.709 Amount propofoL 1,000 mg In 146.709 Empty Bag 1 bag @ 15 MCG/ KG/MIN 10.614 mls/hr IV . [id number] [facility]INNY Rx#:[id number] Output: Urine 230 447 45 Estimated Blood Loss 200 Other: Voiding Method Indwelling Catheter Indwelling Catheter - Exam The patient is intubated and sedated in his bed in the ICU. A focused exam of the right lower extremity was conducted. On inspection there is a clean- appearing dressing over the anterior aspect of the hip. There is no strikethrough or drainage. His thigh is mildly swollen and soft. Distally there is a palpable pulse in the right foot. - Labs CBC & Chem 7: 02/22/23 04:06 02/22/23 04:06 Labs: Abnormal Lab Results - Last 24 Hours (Table) 02/21/23 02/21/23 02/21/23 Range/Units 15:15 15:23 15:23 WBC 27.6 H (3.8-10.6) k/uL RBC (4.30-5.90) m/uL Hgb (13.0-17.5) gm/dL Hct (39.0-53.0) % MCV 102.2 H D (80.0-100.0) fL Neutrophils # (1.3-7.7) k/uL Lymphocytes # (1.0-4.8) k/uL Monocytes # (0-1.0) k/uL ABG pH (7.35-7.45) ABG pO2 (83-108) mmHg ABG HCO3 (21-25) mmol/L ABG Total CO2 (19-24) mmol/L ABG O2 Saturation (94-97) % Sodium (137-145) mmol/L Carbon Dioxide 14 L (22-30) mmol/L BUN 24 H (9-20) mg/dL Creatinine 1.82 H (0.66-1.25) mg/dL Glucose 226 H (74-99) mg/dL POC Glucose (mg/dL) 213 H (70-110) mg/dL Calcium (8.4-10.2) mg/dL Magnesium (1.6-2.3) mg/dL Total Protein (6.3-8.2) g/dL Albumin (3.5-5.0) g/dL 02/21/23 02/21/23 02/21/23 Range/Units 16:09 16:43 22:42 WBC (3.8-10.6) k/uL RBC (4.30-5.90) m/uL Hgb (13.0-17.5) gm/dL Hct (39.0-53.0) % MCV (80.0-100.0) fL Neutrophils # (1.3-7.7) k/uL Lymphocytes # (1.0-4.8) k/uL Monocytes # (0-1.0) k/uL ABG pH 7.26 L (7.35-7.45) ABG pO2 276 H (83-108) mmHg ABG HCO3 20 L (21-25) mmol/L ABG Total CO2 (19-24) mmol/L ABG O2 Saturation 99.1 H (94-97) % Sodium (137-145) mmol/L Carbon Dioxide (22-30) mmol/L BUN (9-20) mg/dL Creatinine (0.66-1.25) mg/dL Glucose (74-99) mg/dL POC Glucose (mg/dL) 218 H 150 H (70-110) mg/dL Calcium (8.4-10.2) mg/dL Magnesium (1.6-2.3) mg/dL Total Protein (6.3-8.2) g/dL Albumin (3.5-5.0) g/dL 02/22/23 02/22/23 02/22/23 Range/Units 00:16 04:06 04:06 WBC 15.5 H (3.8-10.6) k/uL RBC 3.93 L (4.30-5.90) m/uL Hgb 12.6 L (13.0-17.5) gm/dL Hct 38.6 L (39.0-53.0) % MCV (80.0-100.0) fL Neutrophils # 13.1 H (1.3-7.7) k/uL Lymphocytes # 0.9 L (1.0-4.8) k/uL Monocytes # 1.2 H (0-1.0) k/uL ABG pH (7.35-7.45) ABG pO2 (83-108) mmHg ABG HCO3 (21-25) mmol/L ABG Total CO2 (19-24) mmol/L ABG O2 Saturation (94-97) % Sodium 135 L (137-145) mmol/L Carbon Dioxide (22-30) mmol/L BUN 34 H (9-20) mg/dL Creatinine 1.78 H (0.66-1.25) mg/dL Glucose 146 H (74-99) mg/dL POC Glucose (mg/dL) 167 H (70-110) mg/dL Calcium 8.2 L (8.4-10.2) mg/dL Magnesium 2.6 H (1.6-2.3) mg/dL Total Protein 5.8 L (6.3-8.2) g/dL Albumin 2.8 L (3.5-5.0) g/dL 02/22/23 02/22/23 Range/Units 06:06 06:12 WBC (3.8-10.6) k/uL RBC (4.30-5.90) m/uL Hgb (13.0-17.5) gm/dL Hct (39.0-53.0) % MCV (80.0-100.0) fL Neutrophils # (1.3-7.7) k/uL Lymphocytes # (1.0-4.8) k/uL Monocytes # (0-1.0) k/uL ABG pH (7.35-7.45) ABG pO2 156 H (83-108) mmHg ABG HCO3 (21-25) mmol/L ABG Total CO2 26 H (19-24) mmol/L ABG O2 Saturation 98.9 H (94-97) % Sodium (137-145) mmol/L Carbon Dioxide (22-30) mmol/L BUN (9-20) mg/dL Creatinine (0.66-1.25) mg/dL Glucose (74-99) mg/dL POC Glucose (mg/dL) 151 H (70-110) mg/dL Calcium (8.4-10.2) mg/dL Magnesium (1.6-2.3) mg/dL Total Protein (6.3-8.2) g/dL Albumin (3.5-5.0) g/dL Assessment and Plan Assessment: Postoperative day #1 status post right hip hemiarthroplasty Multiple medical problems Acute postoperative respiratory distress requiring intubation and transfer to the ICU Plan: 1. Weightbearing as tolerated right lower extremity 2. Leave dressing in place 3. 2 doses postoperative Ancef 4. We have ordered aspirin for DVT prophylaxis but given the patient's multiple medical problems and current respiratory status will defer to internal medicine if they would like stronger anticoagulation 5. Given the patient's multiple pre-existing medical issues as well as his current medical state and likely need for longer hospitalization, I would like the patient transferred to internal medicine to take over as primary service. We will continue to follow while the patient is in the hospital.
[2023-02-22] MEDS: CHLORHEXIDINE GLUCONATE 15 ML CUP MUCOUS MEM SCH (09:03)
[2023-02-22] MEDS: levETIRAcetam IV 500 MG/5 ML VIAL IVP SCH ×2 (09:03→21:18)
[2023-02-22] MEDS: PANTOPRAZOLE 40 MG/10 ML VIAL IV SCH (09:03)
[2023-02-22] MEDS: FOLIC ACID 1 MG TAB PO SCH (09:04)
[2023-02-22] MEDS: ASPIRIN 81 MG PO SCH ×2 (09:04→21:18)
[2023-02-22] MEDS: THIAMINE 100 MG TAB PO SCH (09:04)
[2023-02-22] MEDS: QUEtiapine 100 MG TAB PO SCH ×3 (09:04→22:50)
[2023-02-22] MEDS: SERTRALINE 25 MG TAB PO SCH (09:04)
--- NOTE | 2023-02-22 09:50 | P.CNPUL ---
History of Present Illness Consult date: 02/22/23 Requesting physician: Alonso Roy Reason for consult: other Chief complaint: Respiratory failure. History of present illness: Pulmonary consult dated 02/22/2023. 67-year-old male seen in the emergency department, on February 19, having [facility], repeat CBC, and having a right hip fracture. The patient is postop day #1, right hip hemiarthroplasty. The patient was successfully extubated in the recovery area, but had a mental status change, and required reintubation according to anesthesia. The patient was transferred to the intensive care unit, for further monitoring and management. [facility]. The patient is quite limited, mostly in a wheelchair, and very hard of hearing or . The patient can do basic activities of daily living, but cannot shower himself. He spends most of his days in a wheelchair. Current vent settings include assist control, rate 14, tidal volume 450, FiO2 40%, and PEEP of 5. Arterial blood gases on 50% showed pO2 156, pCO2 44, pH is 7.36. The patient's on propofol at 25 mcg/kg/m, lactated Ringer's at 75 mL an hour, and vital high protein at 10 mL an hour. We will attempt a daily interruption of sedation. The respiratory therapist may or may not be able to get weaning parameters. He certainly will get a cuff leak. The patient should also probably have a blood gas prior to extubation. White count 15.5, hemoglobin 12.6, hematocrit 38.6, and platelet count 170,000. Sodium 135, potassium 4.6, chlorides 105, CO2 23, BUN 34, and the creatinine is 1.78. Chest x-ray shows very mild pulmonary vascular congestion. Review of Systems No review of systems could be obtained. The patient is essentially nonverbal at this time given the fact he is getting oral endotracheal tube, and is sedated. No history could be obtained from the anesthesiologist other than the fact that the patient was alert and oriented 2, initially, and then had a mental status change, requiring reintubation. Past Medical History Past Medical History: COPD, CVA/TIA, Dementia, Hearing Disorder / Deafness, Hyperlipidemia, Hypertension, Prostate Disorder Additional Past Medical History / Comment(s): AMS changes/ischemic encephalopathy/vascular dementia/CPD/ASHD/presbycusis. He had a LP performed and was transferred to [facility]. 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 [facility] states they were also told unco ntrolled HTN/hydrocephalus/advance dementia/uti. Other hx: 2013 CVA without residual, [place] bilaterally/speak in R ear, occasional urinary incontinence/frequency, CKD, nephrolithiasis, BPH, occasional back pain. History of Any Multi-Drug Resistant Organisms: None Reported Past Surgical History: Appendectomy Additional Past Surgical History / Comment(s): colonoscopy, urology surgery Past Anesthesia/Blood Transfusion Reactions: No Reported Reaction Past Psychological History: Anxiety, Depression Additional Psychological History / Comment(s): Pt has legal guardians/document on chart. Pt currently at [facility]. He uses a walker occasionally. He takes his pills crushed. He is on aspiration and fall precautions. [facility] diagnosis list states psychiatric disorder. Smoking Status: Former smoker Past Alcohol Use History: None Reported Additional Past Alcohol Use History / Comment(s): Pt started smoking as a teen and was a ppd smoker. Pt has not smoked since 03/23/20. Past Drug Use History: None Reported - Past Family History Mother Family Medical History: Dementia, Hypertension Father Family Medical History: Cancer Additional Family Medical History / Comment(s): Lung cancer. Father was a smoker. Medications and Allergies Home Medications Medication Instructions Recorded Confirmed Type Atorvastatin [Lipitor] 10 mg PO HS 04/14/20 02/20/23 History Folic Acid 0.4 mg PO DAILY 04/14/20 02/20/23 History Propranolol HCl [Inderal] 60 mg PO DAILY 04/14/20 02/20/23 History Thiamine HCl [Vitamin B-1] 100 mg PO DAILY 04/14/20 02/20/23 History amLODIPine [Norvasc] 10 mg PO DAILY 04/14/20 02/20/23 History Acetaminophen Tab [Tylenol] 650 mg PO Q8H PRN 06/14/20 02/20/23 History Aspirin 81 mg PO DAILY 06/14/20 02/20/23 History QUEtiapine [SEROquel] 100 mg PO TID@0900,1300,2100 02/20/23 02/20/23 History Sertraline [Zoloft] 25 mg PO DAILY 02/20/23 02/20/23 History Aspirin 81 mg PO BID 30 Days #60 tab 02/21/23 Rx Docusate [Colace] 100 mg PO BID #60 capsule 02/21/23 Rx Doxycycline Monohydrate 100 mg PO BID 14 Days #28 cap 02/21/23 Rx HYDROcodone/APAP 5-325MG [[place] 1 tab PO Q6HR PRN 7 Days #28 tab 02/21/23 Rx 5-325] Omeprazole 40 mg PO DAILY 30 Days #30 cap 02/21/23 Rx Allergies Allergy/AdvReac Type Severity Reaction Status Date / Time No Known Allergies Allergy Verified 02/20/23 07:02 Physical Exam Osteopathic Statement: *. No significant issues noted on an osteopathic structural exam other than those noted in the History and Physical/Consult. Vitals: Vital Signs Temp Pulse Pulse Pulse Resp BP BP 02/22/23 09:30 86 14 02/22/23 09:00 85 14 124/75 02/22/23 08:30 85 14 121/82 02/22/23 08:00 97.6 F 81 14 107/71 02/22/23 07:50 75 02/22/23 07:42 02/22/23 07:30 75 14 120/74 02/22/23 07:00 77 14 108/72 02/22/23 06:45 77 14 108/72 02/22/23 06:30 76 14 108/78 02/22/23 06:15 77 14 108/78 02/22/23 06:00 77 11 L 124/76 02/22/23 05:45 78 11 L 124/76 02/22/23 05:30 79 11 L 110/66 02/22/23 05:15 78 11 L 110/66 02/22/23 05:00 78 10 L 107/70 02/22/23 04:45 78 11 L 107/70 02/22/23 04:38 75 02/22/23 04:30 74 11 L 111/72 02/22/23 04:15 77 14 111/72 02/22/23 04:00 97.8 F 78 14 111/74 02/22/23 03:45 80 14 119/82 02/22/23 03:30 79 14 02/22/23 03:15 85 14 109/72 02/22/23 03:00 76 14 107/72 02/22/23 02:45 80 12 105/70 02/22/23 02:30 80 12 104/71 02/22/23 02:15 79 14 108/72 02/22/23 02:00 81 14 106/73 02/22/23 01:45 82 14 108/70 02/22/23 01:30 82 14 105/72 02/22/23 01:15 81 14 106/74 02/22/23 01:00 84 14 108/74 02/22/23 00:45 84 14 110/72 02/22/23 00:30 84 13 106/73 02/22/23 00:15 85 12 107/72 02/22/23 00:00 98.3 F 86 14 107/75 02/21/23 23:45 87 14 110/74 02/21/23 23:30 86 14 108/72 02/21/23 23:27 85 02/21/23 23:19 84 02/21/23 23:15 84 14 107/76 02/21/23 23:00 85 14 112/74 02/21/23 22:45 84 14 109/74 02/21/23 22:38 86 12 109/74 02/21/23 22:30 87 12 108/76 02/21/23 22:15 87 10 L 105/72 02/21/23 22:00 88 10 L 112/76 02/21/23 21:45 88 12 111/72 02/21/23 21:30 88 11 L 109/73 02/21/23 21:15 88 11 L 102/75 02/21/23 21:00 89 11 L 116/72 02/21/23 20:45 90 12 113/71 02/21/23 20:30 89 10 L 106/72 02/21/23 20:28 86 02/21/23 20:19 02/21/23 20:18 86 02/21/23 20:15 87 14 122/81 02/21/23 20:00 98.1 F 90 14 123/84 02/21/23 19:45 86 14 115/77 02/21/23 19:30 88 14 113/76 02/21/23 19:15 87 12 119/81 08/18/23 19:00 93 14 108/74 08/18/23 18:49 02/21/23 18:45 90 14 113/73 02/21/23 18:30 91 14 127/84 02/21/23 18:15 101 H 14 115/76 02/21/23 18:00 96 14 111/74 02/21/23 17:45 98 14 108/73 02/21/23 17:30 99 14 106/71 02/21/23 17:15 100 14 105/70 02/21/23 17:00 102 H 11 L 105/66 02/21/23 16:49 02/21/23 16:45 104 H 12 99/68 02/21/23 16:30 112 H 14 109/73 02/21/23 16:18 02/21/23 16:15 98.9 F 118 H 17 156/87 02/21/23 15:43 99.3 F 02/21/23 15:30 110 H 27 H 98/52 02/21/23 15:00 107 H 17 140/66 02/21/23 14:30 112 H 17 158/65 02/21/23 14:16 118 H 15 147/77 02/21/23 14:00 117 H 16 135/74 02/21/23 13:45 120 H 16 129/68 02/21/23 13:33 125 H 16 132/70 02/21/23 13:21 98.7 F 118 H 14 134/74 02/21/23 10:35 107 H 21 02/21/23 10:33 99.8 F H 112 H 20 164/97 Pulse Ox FiO2 02/22/23 09:30 97 02/22/23 09:00 97 02/22/23 08:30 97 02/22/23 08:00 97 40 02/22/23 07:50 02/22/23 07:42 40 02/22/23 07:30 97 02/22/23 07:00 97 02/22/23 06:45 97 02/22/23 06:30 02/22/23 06:15 98 40 02/22/23 06:00 98 02/22/23 05:45 97 02/22/23 05:30 98 02/22/23 05:15 97 02/22/23 05:00 98 02/22/23 04:45 98 02/22/23 04:38 08/19/23 04:30 50 02/22/23 04:15 98 02/22/23 04:00 98 50 02/22/23 03:45 02/22/23 03:30 98 02/22/23 03:15 02/22/23 03:00 02/22/23 02:45 02/22/23 02:30 97 02/22/23 02:15 02/22/23 02:00 97 02/22/23 01:45 97 02/22/23 01:30 97 02/22/23 01:15 97 02/22/23 01:00 97 02/22/23 00:45 97 02/22/23 00:30 97 02/22/23 00:15 97 02/22/23 00:00 97 50 02/21/23 23:45 97 02/21/23 23:30 97 02/21/23 23:27 02/21/23 23:19 50 02/21/23 23:15 97 02/21/23 23:00 97 02/21/23 22:45 97 02/21/23 22:38 97 02/21/23 22:30 97 02/21/23 22:15 97 02/21/23 22:00 97 02/21/23 21:45 97 02/21/23 21:30 97 02/21/23 21:15 97 02/21/23 21:00 97 02/21/23 20:45 97 02/21/23 20:30 97 02/21/23 20:28 02/21/23 20:19 50 02/21/23 20:18 02/21/23 20:15 97 02/21/23 20:00 97 50 02/21/23 19:45 97 02/21/23 19:30 97 02/21/23 19:15 97 02/21/23 19:00 96 02/21/23 18:49 50 02/21/23 18:45 96 02/21/23 18:30 97 02/21/23 18:15 98 02/21/23 18:00 98 02/21/23 17:45 98 02/21/23 17:30 98 02/21/23 17:15 98 02/21/23 17:00 98 60 02/21/23 16:49 50 02/21/23 16:45 98 100 02/21/23 16:30 97 100 02/21/23 16:18 100 02/21/23 16:15 98 100 02/21/23 15:43 02/21/23 15:30 94 L 02/21/23 15:00 92 L 02/21/23 14:30 91 L 02/21/23 14:16 96 02/21/23 14:00 96 02/21/23 13:45 96 02/21/23 13:33 96 02/21/23 13:21 96 02/21/23 10:35 94 L 02/21/23 10:33 88 L Intake and Output 02/21/23 02/22/23 02/22/23 22:59 06:59 14:59 Intake Total 510.630 701.079 235 Output Total 162 315 165 Balance 348.630 386.079 70 Intake: IV 445 620 235 Invasive Line 1 20 20 10 Lactated Ringers 1,000 ml 375 600 225 @ 75 mls/hr IV .[id number] [facility] Rx#:[id number] Intake, IV Titration 65.630 81.079 Amount propofoL 1,000 mg In 65.630 81.079 Empty Bag 1 bag @ 15 MCG/ KG/MIN 10.614 mls/hr IV . [id number] [facility] Rx#:[id number] Output: Urine 162 315 165 Other: Voiding Method Indwelling Catheter Indwelling Catheter Indwelling Catheter Weight 113.7 kg No acute distress, sedated, with an orally placed endotracheal tube and NG tube. HEENT examination is grossly unremarkable. Neck supple. Full range of motion. No adenopathy thyromegaly or neck vein distention. Cardiovascular examination reveals regular rhythm rate. S1-S2 normal. No S3 or S4. No discernible murmur noted. Heart rate is 86 bpm. Heart sounds are distant. Lungs reveal scattered bilateral rhonchi. No wheezes or crackles. Breath sounds are equal bilaterally. Saturations are 97%. Abdomen soft, without bowel sounds. No masses or tenderness. Extremities are intact. No cyanosis clubbing or edema. Skin is without rash or lesion. Neurologic examination cannot be adequately evaluated. Results - Laboratory Findings CBC and BMP: 02/22/23 04:06 02/22/23 04:06 ABG ABG pH 7.36 (7.35-7.45) 02/22/23 06:12 ABG pCO2 44 mmHg (35-45) 02/22/23 06:12 ABG pO2 156 mmHg (83-108) H 02/22/23 06:12 ABG O2 Saturation 98.9 % (94-97) H 02/22/23 06:12 PT/INR, D-dimer PT 11.0 sec (9.0-12.0) 02/20/23 10:52 INR 1.0 (<1.2) 02/20/23 10:52 Abnormal lab findings: Abnormal Labs 02/20/23 02/20/23 02/21/23 01:19 06:27 15:15 WBC RBC Hgb Hct MCV Neutrophils # Lymphocytes # Monocytes # ABG pH ABG pO2 ABG HCO3 ABG Total CO2 ABG O2 Saturation Sodium Carbon Dioxide BUN 25 H Creatinine 1.28 H Glucose 134 H POC Glucose (mg/dL) 213 H Calcium Magnesium Total Protein Albumin Urine Protein Trace H Urine Glucose (UA) 2+ H Urine Blood Large H Ur Leukocyte Esterase Large H Urine RBC >182 H Urine WBC 55 H Urine WBC Clumps Few H Urine Bacteria Rare H 02/21/23 02/21/23 02/21/23 15:23 15:23 16:09 WBC 27.6 H RBC Hgb Hct MCV 102.2 H D Neutrophils # Lymphocytes # Monocytes # ABG pH ABG pO2 ABG HCO3 ABG Total CO2 ABG O2 Saturation Sodium Carbon Dioxide 14 L BUN 24 H Creatinine 1.82 H Glucose 226 H POC Glucose (mg/dL) 218 H Calcium Magnesium Total Protein Albumin Urine Protein Urine Glucose (UA) Urine Blood Ur Leukocyte Esterase Urine RBC Urine WBC Urine WBC Clumps Urine Bacteria 02/21/23 02/21/23 02/22/23 16:43 22:42 00:16 WBC RBC Hgb Hct MCV Neutrophils # Lymphocytes # Monocytes # ABG pH 7.26 L ABG pO2 276 H ABG HCO3 20 L ABG Total CO2 ABG O2 Saturation 99.1 H Sodium Carbon Dioxide BUN Creatinine Glucose POC Glucose (mg/dL) 150 H 167 H Calcium Magnesium Total Protein Albumin Urine Protein Urine Glucose (UA) Urine Blood Ur Leukocyte Esterase Urine RBC Urine WBC Urine WBC Clumps Urine Bacteria 02/22/23 02/22/23 02/22/23 04:06 04:06 06:06 WBC 15.5 H RBC 3.93 L Hgb 12.6 L Hct 38.6 L MCV Neutrophils # 13.1 H Lymphocytes # 0.9 L Monocytes # 1.2 H ABG pH ABG pO2 ABG HCO3 ABG Total CO2 ABG O2 Saturation Sodium 135 L Carbon Dioxide BUN 34 H Creatinine 1.78 H Glucose 146 H POC Glucose (mg/dL) 151 H Calcium 8.2 L Magnesium 2.6 H Total Protein 5.8 L Albumin 2.8 L Urine Protein Urine Glucose (UA) Urine Blood Ur Leukocyte Esterase Urine RBC Urine WBC Urine WBC Clumps Urine Bacteria 02/22/23 06:12 WBC RBC Hgb Hct MCV Neutrophils # Lymphocytes # Monocytes # ABG pH ABG pO2 156 H ABG HCO3 ABG Total CO2 26 H ABG O2 Saturation 98.9 H Sodium Carbon Dioxide BUN Creatinine Glucose POC Glucose (mg/dL) Calcium Magnesium Total Protein Albumin Urine Protein Urine Glucose (UA) Urine Blood Ur Leukocyte Esterase Urine RBC Urine WBC Urine WBC Clumps Urine Bacteria - Diagnostic Findings Chest x-ray: image reviewed Assessment and Plan Assessment: Postop day #1, status post right hip hemiarthroplasty, secondary to fall. Post extubation mental status change, in the recovery area, requiring reintubation, 02/21/2023. History of COPD. History of CVA. History of dementia. Deafness. Hyperlipidemia. Hypertension. History of multiple medical problems and comorbidities. Plan: Plan dated 02/22/2023. The patient will have a daily interruption of sedation, and possibly a spontaneous breathing trial. I'm not sure what parameters will be able to achieve from this patient. We will try a cuff leak for sure. The patient should benefit from a blood gas prior to extubation. It may be that we just take a chance and extubate him, rather than prolonged weaning attempts. In addition, we talked to his caretakers, and determined that the patient should be a DO NOT RESUSCITATE. Additional recommendations and suggestions are forthcoming. Prognosis is certainly guarded. Labs, x-rays, and medications are all reviewed. Time with Patient: Greater than 30
[2023-02-22] MEDS: DEXMEDETOMIDINE/0.9% NACL(PMX) 400 MCG in EMPTY BAG 1 BAG IV SCH (10:09)
[2023-02-22] MEDS: HYDROmorphone 0.5 MG/0.5 ML SYRINGE IVP PRN ×3 (10:10→18:33)
[2023-02-22 11:20] LABS: Glucose,Whole Blood 139 mg/dL (70-110)
--- NOTE | 2023-02-22 12:19 | P.CNNES ---
History of Present Illness Consult date: 02/22/23 Requesting physician: Adeel Valencia Reason for Consult: New onset witnessed seizure History of Present Illness: Patient is a 67-year-old male came to the hospital by ambulance on 02/19/2023 As per EMS flow sheet, when they arrived, patient was in the bed, and according to [facility] staff, patient fell unwitnessed and was found behind his door which was sharp. Patient is very hard of hearing and and unable to communicate, unless handwritten notes are made. Patient complained of pain in the right groin and upper right thigh area. Patient unable to ambulate although prior to 4 was capable. Patient's vitals at the scene was blood pressure 147/85, pulse rate 97, respiration 14, saturation 95%. CT head and cervical spine showed no acute process. Nonspecific white matter changes, likely secondary to chronic small vessel ischemic disease. No evidence of cervical spine fracture. Mild multilevel degenerative disc disease. I personally review CT head, agree with the findings. Significant small vessel disease, but there is some prominence of the ventricles, concern for possible NPH. There is possible chronic hypodensity in the left thalamus, which was present also in the CT head from 10/01/2021. CT of abdomen and pelvis showed valgus impacted right femoral neck fracture. Prostatomegaly. Correlate with serum PSA. Patient's blood test shows a BBC 15.5, hemoglobin 12.6, platelets 170. Sodium 135 potassium 4.6, BUN 34, creatinine 1.78. Hepatic panel is normal. UA shows large amount of leukocyte esterase and 55 WBC. Patient underwent right hip surgery yesterday, was extubated post surgery. P selvin was getting unhooked to go back to the floor when suddenly at around 3:08 PM, he clenched his hands and arms and grimaced his face. After 15 seconds he relaxed and became blue in color. Anesthesia was called stat and patient hooked back up to vital signs. Patient was reintubated. Patient was started on Keppra 500 mg twice a day. No further seizures have been reported. No previous hist ory of seizures. Home medications include thiamine 100 mg, amlodipine 10 mg, propranolol, folic acid, Lipitor 10 mg, aspirin 81 mg, Seroquel 100 mg 3 times a day and Zoloft 25 mg daily. Patient has been seen by myself on 03/22/2024 probable NPH. Patient also had encephalopathy at that time, low-grade fever, hypertension. EEG revealed background slowing of moderate to severe degree. Lumbar puncture revealed WBC 1, RBC 2, glucose 58 and protein 76. Patient was transferred to [facility] for hydrocephalus. B12 was low 221, started on replacement, folic acid. RPR nonreactive. Apparently patient has not received any ventriculoperitoneal shunting. Discharge diagnosis from [facility] list: severe generalized intracranial leukoencephalopathy/cerebral ventriculomegaly/cerebral atrophy/neurogenic dysphagia/UTI/urinary retention/constipation/suspected dysautonomally, acute encephalopathy. [facility] states they were also told uncontrolled HTN/hydrocephalus/advance dementia/uti. Other hx: 2013 CVA without residual deficits. Patient was considered not a candidate for ventriculoperitoneal shunting it appears. Family states that since then, he has been residing in the [facility]. Initially he had some dysphagia, but that he recovered. He was able to eat and swallow. He still has retained catheter. Review of Systems ROS unobtainable: due to endotracheal tube, due to mental status Past Medical History Past Medical History: COPD, CVA/TIA, Dementia, Hearing Disorder / Deafness, Hyperlipidemia, Hypertension, Prostate Disorder Additional Past Medical History / Comment(s): AMS changes/ischemic encephalopathy/vascular dementia/CPD/ASHD/presbycusis. He had a LP performed and was transferred to [facility]. Discharge diagnosis from [facility] list: severe generalized intracranial leukoencephalopathy/cerebral ventriculomegaly/cerebral atrophy/neurogenic dysphagia/UTI/urinary retention/constipation/suspected dysautonomally, acute encephalopathy. [facility] states they were also told uncontrol led HTN/hydrocephalus/advance dementia/uti. Other hx: 2013 CVA without residual, TAKOTNA bilaterally/speak in R ear, occasional urinary incontinence/frequency, CKD, nephrolithiasis, BPH, occasional back pain. History of Any Multi-Drug Resistant Organisms: None Reported Past Surgical History: Appendectomy Additional Past Surgical History / Comment(s): colonoscopy, urology surgery Past Anesthesia/Blood Transfusion Reactions: No Reported Reaction Past Psychological History: Anxiety, Depression Additional Psychological History / Comment(s): Pt has legal guardians/document on chart. Pt currently at [facility]. He uses a walker occasionally. He takes his pills crushed. He is on aspiration and fall precautions. [facility] diagnosis list states psychiatric disorder. Smoking Status: Former smoker Past Alcohol Use History: None Reported Additional Past Alcohol Use History / Comment(s): Pt started smoking as a teen and was a ppd smoker. Pt has not smoked since 03/23/20. Past Drug Use History: None Reported - Past Family History Mother Family Medical History: Dementia, Hypertension Father Family Medical History: Cancer Additional Family Medical History / Comment(s): Lung cancer. Father was a smoker. Medications and Allergies Home Medications Medication Instructions Recorded Confirmed Type Atorvastatin [Lipitor] 10 mg PO HS 04/14/20 02/20/23 History Folic Acid 0.4 mg PO DAILY 04/14/20 02/20/23 History Propranolol HCl [Inderal] 60 mg PO DAILY 04/14/20 02/20/23 History Thiamine HCl [Vitamin B-1] 100 mg PO DAILY 04/14/20 02/20/23 History amLODIPine [Norvasc] 10 mg PO DAILY 04/14/20 02/20/23 History Acetaminophen Tab [Tylenol] 650 mg PO Q8H PRN 06/14/20 02/20/23 History Aspirin 81 mg PO DAILY 06/14/20 02/20/23 History QUEtiapine [SEROquel] 100 mg PO TID@0900,1300,2100 02/20/23 02/20/23 History Sertraline [Zoloft] 25 mg PO DAILY 02/20/23 02/20/23 History Aspirin 81 mg PO BID 30 Days #60 tab 02/21/23 Rx Docusate [Colace] 100 mg PO BID #60 capsule 02/21/23 Rx Doxycycline Monohydrate 100 mg PO BID 14 Days #28 cap 02/21/23 Rx HYDROcodone/APAP 5-325MG [[place] 1 tab PO Q6HR PRN 7 Days #28 tab 02/21/23 Rx 5-325] Omeprazole 40 mg PO DAILY 30 Days #30 cap 02/21/23 Rx Allergies Allergy/AdvReac Type Severity Reaction Status Date / Time No Known Allergies Allergy Verified 02/20/23 07:02 Physical Examination - Vital Signs Vital Signs: Vital Signs Temp Pulse Pulse Resp BP BP Pulse Ox 02/22/23 10:29 02/22/23 10:00 84 18 112/74 97 02/22/23 09:30 86 14 97 02/22/23 09:00 85 14 124/75 97 02/22/23 08:30 85 14 121/82 97 02/22/23 08:00 97.6 F 81 14 107/71 97 02/22/23 07:50 75 02/22/23 07:42 02/22/23 07:30 75 14 120/74 97 02/22/23 07:00 77 14 108/72 97 02/22/23 06:45 77 14 108/72 97 02/22/23 06:30 76 14 108/78 02/22/23 06:15 77 14 108/78 98 02/22/23 06:00 77 11 L 124/76 98 02/22/23 05:45 78 11 L 124/76 97 02/22/23 05:30 79 11 L 110/66 98 02/22/23 05:15 78 11 L 110/66 97 02/22/23 05:00 78 10 L 107/70 98 02/22/23 04:45 78 11 L 107/70 98 02/22/23 04:38 75 02/22/23 04:30 74 11 L 111/72 02/22/23 04:15 77 14 111/72 98 02/22/23 04:00 97.8 F 78 14 111/74 98 02/22/23 03:45 80 14 119/82 02/22/23 03:30 79 14 98 02/22/23 03:15 85 14 109/72 02/22/23 03:00 76 14 107/72 02/22/23 02:45 80 12 105/70 02/22/23 02:30 80 12 104/71 97 02/22/23 02:15 79 14 108/72 02/22/23 02:00 81 14 106/73 97 02/22/23 01:45 82 14 108/70 97 02/22/23 01:30 82 14 105/72 97 02/22/23 01:15 81 14 106/74 97 02/22/23 01:00 84 14 108/74 97 02/22/23 00:45 84 14 110/72 97 02/22/23 00:30 84 13 106/73 97 02/22/23 00:15 85 12 107/72 97 02/22/23 00:00 98.3 F 86 14 107/75 97 02/21/23 23:45 87 14 110/74 97 02/21/23 23:30 86 14 108/72 97 02/21/23 23:27 85 02/21/23 23:19 84 02/21/23 23:15 84 14 107/76 97 02/21/23 23:00 85 14 112/74 97 02/21/23 22:45 84 14 109/74 97 02/21/23 22:38 86 12 109/74 97 02/21/23 22:30 87 12 108/76 97 02/21/23 22:15 87 10 L 105/72 97 02/21/23 22:00 88 10 L 112/76 97 02/21/23 21:45 88 12 111/72 97 02/21/23 21:30 88 11 L 109/73 97 02/21/23 21:15 88 11 L 102/75 97 02/21/23 21:00 89 11 L 116/72 97 02/21/23 20:45 90 12 113/71 97 02/21/23 20:30 89 10 L 106/72 97 02/21/23 20:28 86 02/21/23 20:19 02/21/23 20:18 86 02/21/23 20:15 87 14 122/81 97 02/21/23 20:00 98.1 F 90 14 123/84 97 02/21/23 19:45 86 14 115/77 97 02/21/23 19:30 88 14 113/76 97 02/21/23 19:15 87 12 119/81 97 02/21/23 19:00 93 14 108/74 96 02/21/23 18:49 02/21/23 18:45 90 14 113/73 96 02/21/23 18:30 91 14 127/84 97 02/21/23 18:15 101 H 14 115/76 98 02/21/23 18:00 96 14 111/74 98 02/21/23 17:45 98 14 108/73 98 02/21/23 17:30 99 14 106/71 98 02/21/23 17:15 100 14 105/70 98 02/21/23 17:00 102 H 11 L 105/66 98 02/21/23 16:49 02/21/23 16:45 104 H 12 99/68 98 02/21/23 16:30 112 H 14 109/73 97 02/21/23 16:18 02/21/23 16:15 98.9 F 118 H 17 156/87 98 02/21/23 15:43 99.3 F 02/21/23 15:30 110 H 27 H 98/52 94 L 02/21/23 15:00 107 H 17 140/66 92 L 02/21/23 14:30 112 H 17 158/65 91 L 02/21/23 14:16 118 H 15 147/77 96 02/21/23 14:00 117 H 16 135/74 96 02/21/23 13:45 120 H 16 129/68 96 02/21/23 13:33 125 H 16 132/70 96 02/21/23 13:21 98.7 F 118 H 14 134/74 96 FiO2 02/22/23 10:29 40 02/22/23 10:00 02/22/23 09:30 02/22/23 09:00 02/22/23 08:30 02/22/23 08:00 40 02/22/23 07:50 02/22/23 07:42 40 02/22/23 07:30 02/22/23 07:00 02/22/23 06:45 02/22/23 06:30 02/22/23 06:15 40 02/22/23 06:00 02/22/23 05:45 02/22/23 05:30 02/22/23 05:15 02/22/23 05:00 02/22/23 04:45 02/22/23 04:38 02/22/23 04:30 50 02/22/23 04:15 02/22/23 04:00 50 02/22/23 03:45 02/22/23 03:30 02/22/23 03:15 02/22/23 03:00 02/22/23 02:45 02/22/23 02:30 02/22/23 02:15 02/22/23 02:00 02/22/23 01:45 02/22/23 01:30 02/22/23 01:15 02/22/23 01:00 02/22/23 00:45 02/22/23 00:30 02/22/23 00:15 02/22/23 00:00 50 02/21/23 23:45 02/21/23 23:30 02/21/23 23:27 02/21/23 23:19 50 02/21/23 23:15 02/21/23 23:00 02/21/23 22:45 02/21/23 22:38 02/21/23 22:30 02/21/23 22:15 02/21/23 22:00 02/21/23 21:45 02/21/23 21:30 02/21/23 21:15 02/21/23 21:00 02/21/23 20:45 02/21/23 20:30 02/21/23 20:28 02/21/23 20:19 50 02/21/23 20:18 02/21/23 20:15 02/21/23 20:00 50 02/21/23 19:45 02/21/23 19:30 02/21/23 19:15 02/21/23 19:00 02/21/23 18:49 50 02/21/23 18:45 02/21/23 18:30 02/21/23 18:15 02/21/23 18:00 02/21/23 17:45 02/21/23 17:30 02/21/23 17:15 02/21/23 17:00 60 02/21/23 16:49 50 02/21/23 16:45 100 02/21/23 16:30 100 02/21/23 16:18 100 02/21/23 16:15 100 02/21/23 15:43 02/21/23 15:30 02/21/23 15:00 02/21/23 14:30 02/21/23 14:16 02/21/23 14:00 02/21/23 13:45 02/21/23 13:33 02/21/23 13:21 Intake and Output 02/21/23 02/22/23 02/22/23 22:59 06:59 14:59 Intake Total 510.630 701.079 415.246 Output Total 162 315 210 Balance 348.630 386.079 205.246 Intake: IV 445 620 310 Invasive Line 1 20 20 10 Lactated Ringers 1,000 ml 375 600 300 @ 75 mls/hr IV .[id number] [facility] Rx#:[id number] Intake, IV Titration 65.630 81.079 105.246 Amount Dexmedetomidine/0.9% NaCl 2.179 (Pmx) 400 mcg In Empty Bag 1 bag @ 0.2 MCG/KG/HR 5.685 mls/hr IV .[id number] [facility] Rx#:[id number] propofoL 1,000 mg In 65.630 81.079 103.067 Empty Bag 1 bag @ 15 MCG/ KG/MIN 10.614 mls/hr IV . [id number] [facility] Rx#:[id number] Output: Urine 162 315 210 Other: Voiding Method Indwelling Catheter Indwelling Catheter Indwelling Catheter Weight 113.7 kg 113.7 kg Patient is an elderly male, in no acute distress. His intubated. Patient is off sedation since 10:37 AM. Prior to that he was on propofol 25 mcg/kg per minute. Precedex was also discontinued at 11:20 AM. Current time is 12:10 PM. Patient was slightly somnolent, but did wake up on calling his name. He then became quite alert and awake. He was moving both upper extremities very well, trying to sit up. Speech and language functions cannot be assessed. Patient is very hard of hearing. He was able to understand directions much better on a writing board. Other speech functions cannot be assessed. Attention, concentration is impaired and fund of knowledge cannot be assessed. No obvious seizure type activity noted. On cranial nerve examination, pupils are equal, round and reacting to light, visual turner cannot be assessed, although he does blink to visual threat bilaterally. Extraocular muscles are intact with no nystagmus. Face is symmetric, lower cranial nerves cannot be assessed because patient is intubated. Patient is very hard of hearing. On muscle strength testing, patient strength is very normal in both hands. 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 He does wiggle his toes, but more withdrawal response to plantar stimulation bilaterally. Deep tendon reflexes are symmetric 1+ in the biceps, 1+ brachioradialis, 2+ at the knees, plantar is possible down on the right, up on the left. Sensory to touch is equal. Cerebellar functions cannot be assessed because of patient being on 2 point restraint. Tone and bulk of muscles normal. Gait deferred.. On general examination, there is no carotid bruit or murmur, S1-S2 audible. Chest is clear on consultation. Abdomen is soft nontender. No organomegaly, bowel sounds present. Peripheral pulses are present. No edema. Patient does have some dry skin, and some darkening of the skin of the feet. Results - Laboratory Findings CBC and BMP: 02/22/23 04:06 02/22/23 04:06 Abnormal Lab Findings: Abnormal Labs 02/20/23 02/20/23 02/21/23 01:19 06:27 15:15 WBC RBC Hgb Hct MCV Neutrophils # Lymphocytes # Monocytes # ABG pH ABG pO2 ABG HCO3 ABG Total CO2 ABG O2 Saturation Sodium Carbon Dioxide BUN 25 H Creatinine 1.28 H Glucose 134 H POC Glucose (mg/dL) 213 H Calcium Magnesium Total Protein Albumin Urine Protein Trace H Urine Glucose (UA) 2+ H Urine Blood Large H Ur Leukocyte Esterase Large H Urine RBC >182 H Urine WBC 55 H Urine WBC Clumps Few H Urine Bacteria Rare H 02/21/23 02/21/23 02/21/23 15:23 15:23 16:09 WBC 27.6 H RBC Hgb Hct MCV 102.2 H D Neutrophils # Lymphocytes # Monocytes # ABG pH ABG pO2 ABG HCO3 ABG Total CO2 ABG O2 Saturation Sodium Carbon Dioxide 14 L BUN 24 H Creatinine 1.82 H Glucose 226 H POC Glucose (mg/dL) 218 H Calcium Magnesium Total Protein Albumin Urine Protein Urine Glucose (UA) Urine Blood Ur Leukocyte Esterase Urine RBC Urine WBC Urine WBC Clumps Urine Bacteria 02/21/23 02/21/23 02/22/23 16:43 22:42 00:16 WBC RBC Hgb Hct MCV Neutrophils # Lymphocytes # Monocytes # ABG pH 7.26 L ABG pO2 276 H ABG HCO3 20 L ABG Total CO2 ABG O2 Saturation 99.1 H Sodium Carbon Dioxide BUN Creatinine Glucose POC Glucose (mg/dL) 150 H 167 H Calcium Magnesium Total Protein Albumin Urine Protein Urine Glucose (UA) Urine Blood Ur Leukocyte Esterase Urine RBC Urine WBC Urine WBC Clumps Urine Bacteria 02/22/23 02/22/23 02/22/23 04:06 04:06 06:06 WBC 15.5 H RBC 3.93 L Hgb 12.6 L Hct 38.6 L MCV Neutrophils # 13.1 H Lymphocytes # 0.9 L Monocytes # 1.2 H ABG pH ABG pO2 ABG HCO3 ABG Total CO2 ABG O2 Saturation Sodium 135 L Carbon Dioxide BUN 34 H Creatinine 1.78 H Glucose 146 H POC Glucose (mg/dL) 151 H Calcium 8.2 L Magnesium 2.6 H Total Protein 5.8 L Albumin 2.8 L Urine Protein Urine Glucose (UA) Urine Blood Ur Leukocyte Esterase Urine RBC Urine WBC Urine WBC Clumps Urine Bacteria 02/22/23 06:12 WBC RBC Hgb Hct MCV Neutrophils # Lymphocytes # Monocytes # ABG pH ABG pO2 156 H ABG HCO3 ABG Total CO2 26 H ABG O2 Saturation 98.9 H Sodium Carbon Dioxide BUN Creatinine Glucose POC Glucose (mg/dL) Calcium Magnesium Total Protein Albumin Urine Protein Urine Glucose (UA) Urine Blood Ur Leukocyte Esterase Urine RBC Urine WBC Urine WBC Clumps Urine Bacteria Assessment and Plan Assessment: * New-onset seizure occurred postoperatively, unclear cause * Status post fall with right femoral neck fracture, status post arthroplasty * Abnormal CT head, with evidence of possible NPH. * Rule out UTI, earlier temperature 100.1, but now afebrile. * Acute renal insufficiency * Dementia * COPD * Hyperlipidemia * History of CVA * Hypertension * Hard of hearing * History of tobacco use. Plan: * Patient has been started on Keppra 500 mg twice a day, which will be continued for now. * Check EEG. * If the EEG does not reveal any epileptiform activity, we will rapidly taper off Keppra. Otherwise may continue Keppra if EEG shows epileptiform activity. * Patient is being considered for extubation. * Neurology will follow clinically. * Discussed with patient's nurse and patient's family in detail. Thank you for the consult.
[2023-02-22 13:05] LABS: ABG HCO3 25 mmol/L (21-25); ABG Oxygen Saturation 97.8 % (94-97); ABG PCO2 42 mmHg (35-45); ABG PH 7.38 (7.35-7.45); ABG PO2 103 mmHg (83-108); ABG TCO2 26 mmol/L (19-24); Allen Test Performed? Yes
--- NOTE | 2023-02-22 14:53 | P.PN ---
Subjective Progress Note Date: 02/22/23 patient is a 67-year-old gentleman with past medical history significant for deafness, hypertension, urinary retention who presented to the ER from the senior care after a fall. Unable to obtain a detailed review of systems or history from the patient, most of the history is taken from EMR, according to records, patient had unwitnessed fall. Patient never lost consciousness. Patie nt was worked up in the ER. Initial lab work done in the ER showed wbCs 9.1, hemoglobin 14.6, platelet count 210, sodium 137 potassium 4.6, BUN 25, creatinine 1.28 CT head done showed no acute intra cranial process CT cervical spine showed no evidence of cervical spine fracture CT abdominal and pelvis done showed valgus impacted right femoral neck fracture, prostatomegaly X-ray femur showed right femoral neck fracture Chest x-ray done in the ER showed low lung volumes generalized hazy appearance could represent atelectasis 02/21. Patient seen and examined. Troponin and proBNP are normal. EKG reviewed, no evidence of any ST segment elevation or T-wave inversions. Patient is medically cleared for surgery with moderate risk of complications. Patient is not the best historian, he refuses to answer 02/22. Patient seen and examined. Currently in ICU, intubated. Patient had surgery done yesterday, postoperatively patient developed mental status changes requiring intubation. REVIEW OF SYSTEMS: Review of systems cannot be obtained because of patient's being intubated PHYSICAL EXAMINATION: GENERAL: The patient is intubated HEENT: Pupils are round and equally reacting to light. EOMI. No scleral icterus. No conjunctival pallor. Normocephalic, atraumatic. No pharyngeal erythema. No thyromegaly. CARDIOVASCULAR: S1 and S2 present. No murmurs, rubs, or gallops. PULMONARY: Chest is clear to auscultation, no wheezing or crackles. ABDOMEN: Soft, nontender, nondistended, normoactive bowel sounds. No palpable organomegaly. MUSCULOSKELETAL: Right hip tenderness, externally rotated EXTREMITIES: No cyanosis, clubbing, or pedal edema. NEUROLOGICAL: Intubated SKIN: No rashes. Assessment and plan right femoral neck fracture status post right hip hemiarthroplasty on 02/21 Post extubation mental status change, in the recovery area, requiring reintubation, 02/21/2023. History of COPD. History of CVA. History of dementia. Deafness. Hyperlipidemia. Hypertension. Fall Acute kidney injury hypertension Monitor vital signs Monitor CBC Monitor CMP Continue vent management per ICU Aggressive bronchopulmonary hygiene Continue IV fluids EEG ordered Continue pain management per orthopedics DVT prophylaxis per orthopedics Critical care following Neurology consulted Labs and medication were reviewed.. Continue same treatment. Continue with symptomatic treatment. Resume home medication. Monitor labs and vitals. DVT and GI prophylaxis. Further recommendations as per clinical course of the patient Dictation was produced using [employer] dictation software. please excuse any grammatical, word or spelling errors. Objective - Vital Signs Vital signs: Vital Signs Temp 97.6 F 02/22/23 08:00 Pulse 86 02/22/23 09:30 Resp 14 02/22/23 09:30 BP 124/75 02/22/23 09:00 Pulse Ox 97 02/22/23 09:30 FiO2 40 02/22/23 08:00 Intake & Output 02/21/23 02/22/23 02/22/23 18:59 06:59 18:59 Intake Total 785 1076.709 335 Output Total 430 447 165 Balance 355 629.709 170 Weight 117.934 kg 113.7 kg Intake: IV 785 930 235 Invasive Line 1 10 30 10 Lactated Ringers 1,000 ml 75 900 225 @ 75 mls/hr IV .[id number] [facility] Rx#:[id number] Intake, IV Titration 146.709 100 Amount propofoL 1,000 mg In 146.709 100 Empty Bag 1 bag @ 15 MCG/ KG/MIN 10.614 mls/hr IV . [id number] [facility] Rx#:[id number] Output: Urine 230 447 165 Estimated Blood Loss 200 Other: Voiding Method Indwelling Catheter Indwelling Catheter Indwelling Catheter - Labs CBC & Chem 7: 02/22/23 04:06 02/22/23 04:06 Labs: Abnormal Lab Results - Last 24 Hours (Table) 02/21/23 02/21/23 02/21/23 Range/Units 15:15 15:23 15:23 WBC 27.6 H (3.8-10.6) k/uL RBC (4.30-5.90) m/uL Hgb (13.0-17.5) gm/dL Hct (39.0-53.0) % MCV 102.2 H D (80.0-100.0) fL Neutrophils # (1.3-7.7) k/uL Lymphocytes # (1.0-4.8) k/uL Monocytes # (0-1.0) k/uL ABG pH (7.35-7.45) ABG pO2 (83-108) mmHg ABG HCO3 (21-25) mmol/L ABG Total CO2 (19-24) mmol/L ABG O2 Saturation (94-97) % Sodium (137-145) mmol/L Carbon Dioxide 14 L (22-30) mmol/L BUN 24 H (9-20) mg/dL Creatinine 1.82 H (0.66-1.25) mg/dL Glucose 226 H (74-99) mg/dL POC Glucose (mg/dL) 213 H (70-110) mg/dL Calcium (8.4-10.2) mg/dL Magnesium (1.6-2.3) mg/dL Total Protein (6.3-8.2) g/dL Albumin (3.5-5.0) g/dL 02/21/23 02/21/23 02/21/23 Range/Units 16:09 16:43 22:42 WBC (3.8-10.6) k/uL RBC (4.30-5.90) m/uL Hgb (13.0-17.5) gm/dL Hct (39.0-53.0) % MCV (80.0-100.0) fL Neutrophils # (1.3-7.7) k/uL Lymphocytes # (1.0-4.8) k/uL Monocytes # (0-1.0) k/uL ABG pH 7.26 L (7.35-7.45) ABG pO2 276 H (83-108) mmHg ABG HCO3 20 L (21-25) mmol/L ABG Total CO2 (19-24) mmol/L ABG O2 Saturation 99.1 H (94-97) % Sodium (137-145) mmol/L Carbon Dioxide (22-30) mmol/L BUN (9-20) mg/dL Creatinine (0.66-1.25) mg/dL Glucose (74-99) mg/dL POC Glucose (mg/dL) 218 H 150 H (70-110) mg/dL Calcium (8.4-10.2) mg/dL Magnesium (1.6-2.3) mg/dL Total Protein (6.3-8.2) g/dL Albumin (3.5-5.0) g/dL 02/22/23 02/22/23 02/22/23 Range/Units 00:16 04:06 04:06 WBC 15.5 H (3.8-10.6) k/uL RBC 3.93 L (4.30-5.90) m/uL Hgb 12.6 L (13.0-17.5) gm/dL Hct 38.6 L (39.0-53.0) % MCV (80.0-100.0) fL Neutrophils # 13.1 H (1.3-7.7) k/uL Lymphocytes # 0.9 L (1.0-4.8) k/uL Monocytes # 1.2 H (0-1.0) k/uL ABG pH (7.35-7.45) ABG pO2 (83-108) mmHg ABG HCO3 (21-25) mmol/L ABG Total CO2 (19-24) mmol/L ABG O2 Saturation (94-97) % Sodium 135 L (137-145) mmol/L Carbon Dioxide (22-30) mmol/L BUN 34 H (9-20) mg/dL Creatinine 1.78 H (0.66-1.25) mg/dL Glucose 146 H (74-99) mg/dL POC Glucose (mg/dL) 167 H (70-110) mg/dL Calcium 8.2 L (8.4-10.2) mg/dL Magnesium 2.6 H (1.6-2.3) mg/dL Total Protein 5.8 L (6.3-8.2) g/dL Albumin 2.8 L (3.5-5.0) g/dL 02/22/23 02/22/23 Range/Units 06:06 06:12 WBC (3.8-10.6) k/uL RBC (4.30-5.90) m/uL Hgb (13.0-17.5) gm/dL Hct (39.0-53.0) % MCV (80.0-100.0) fL Neutrophils # (1.3-7.7) k/uL Lymphocytes # (1.0-4.8) k/uL Monocytes # (0-1.0) k/uL ABG pH (7.35-7.45) ABG pO2 156 H (83-108) mmHg ABG HCO3 (21-25) mmol/L ABG Total CO2 26 H (19-24) mmol/L ABG O2 Saturation 98.9 H (94-97) % Sodium (137-145) mmol/L Carbon Dioxide (22-30) mmol/L BUN (9-20) mg/dL Creatinine (0.66-1.25) mg/dL Glucose (74-99) mg/dL POC Glucose (mg/dL) 151 H (70-110) mg/dL Calcium (8.4-10.2) mg/dL Magnesium (1.6-2.3) mg/dL Total Protein (6.3-8.2) g/dL Albumin (3.5-5.0) g/dL
[2023-02-22 17:45] LABS: Glucose,Whole Blood 120 mg/dL (70-110)
[2023-02-22] MEDS: SENNOSIDES-DOCUSATE SODIUM 1 EACH TAB PO SCH (21:15)
[2023-02-22] MEDS: ATORVASTATIN 10 MG TAB PO SCH (21:16)
[2023-02-23 00:11] LABS: Glucose,Whole Blood 125 mg/dL (70-110)
[2023-02-23] MEDS: INSULIN ASPART (NovoLOG) 100 UNIT/ML VIAL SQ SCH ×6 (01:31→21:34)
[2023-02-23] MEDS: DEXMEDETOMIDINE/0.9% NACL(PMX) 400 MCG in EMPTY BAG 1 BAG IV SCH (01:31)
[2023-02-23] MEDS: HYDROmorphone 0.5 MG/0.5 ML SYRINGE IVP PRN ×4 (03:07→15:10)
[2023-02-23 05:37] LABS: Basophils % (A) 0 %; Eosinophils # (A) 0.6 k/uL (0-0.7); Eosinophils % (A) 5 %; HGB 11.5 gm/dL (13.0-17.5); Lymphocytes # (A) 1.3 k/uL (1.0-4.8); Lymphocytes % (A) 11 %; MCH 32.4 pg (25.0-35.0); MCHC 32.9 g/dL (31.0-37.0); MCV 98.4 fL (80.0-100.0); Monocytes # (A) 0.9 k/uL (0-1.0); Monocytes % (A) 8 %; Neutrophils # (A) 8.2 k/uL (1.3-7.7); Neutrophils % (A) 74 %; Platelet Count 157 k/uL (150-450); RBC 3.56 m/uL (4.30-5.90); RDW 13.1 % (11.5-15.5); WBC 11.1 k/uL (3.8-10.6)
[2023-02-23 05:47] LABS: African American GFR (CKD) 51 (>60 ml/min/1.73 sqM); Anion Gap 8 mmol/L; Blood Urea Nitrogen 34 mg/dL (9-20); Calcium 8.2 mg/dL (8.4-10.2); Carbon Dioxide 24 mmol/L (22-30); Chloride 106 mmol/L (98-107); Glucose 129 mg/dL (74-99); Non-African American GFR(CKD) 44 (>60 ml/min/1.73 sqM); Potassium 4.7 mmol/L (3.5-5.1); Sodium 138 mmol/L (137-145)
[2023-02-23 06:24] LABS: Glucose,Whole Blood 138 mg/dL (70-110)
[2023-02-23] MEDS: LACTATED RINGERS 1,000 ML IV SCH (07:08)
[2023-02-23] MEDS: levETIRAcetam IV 500 MG/5 ML VIAL IVP SCH ×2 (07:33→21:33)
[2023-02-23] MEDS: PANTOPRAZOLE 40 MG/10 ML VIAL IV SCH (07:34)
[2023-02-23] MEDS: IPRATROPIUM-ALBUTEROL 3 ML NEB INHALATION SCH ×4 (07:38→20:51)
--- NOTE | 2023-02-23 08:01 | P.PN ---
Subjective Progress Note Date: 02/23/23 Patient's course was reviewed with the nurse was at bedside. The patient was extubated yesterday. No acute events overnight. Objective - Vital Signs Vital signs: Vital Signs Temp 98.4 F 02/23/23 04:00 Pulse 86 02/23/23 07:00 Resp 12 02/23/23 07:00 BP 137/84 02/23/23 07:00 Pulse Ox 95 02/23/23 07:00 FiO2 40 02/22/23 12:00 Intake & Output 02/22/23 02/23/23 02/23/23 18:59 06:59 18:59 Intake Total 1120.100 950.609 160 Output Total 710 585 115 Balance 410.100 365.609 45 Weight 113.7 kg 117.3 kg Intake: IV 1005 855 160 Invasive Line 1 30 30 10 Lactated Ringers 1,000 ml 975 825 150 @ 75 mls/hr IV .[id number] [facility] Rx#:[id number] Intake, IV Titration 115.100 95.609 Amount Dexmedetomidine/0.9% NaCl 12.033 95.609 (Pmx) 400 mcg In Empty Bag 1 bag @ 0.2 MCG/KG/HR 5.685 mls/hr IV .[id number] [facility] Rx#:[id number] propofoL 1,000 mg In 103.067 Empty Bag 1 bag @ 15 MCG/ KG/MIN 10.614 mls/hr IV . [id number] [facility] Rx#:[id number] Output: Urine 710 585 115 Other: Voiding Method Indwelling Catheter Indwelling Catheter - Exam The patient is sleeping in his bed. He is arousable and appears to be at his baseline mental status. On inspection of the right hip there is a clean dressing over the anterior aspect of the hip. There is no drainage or strike through. His thigh is soft and compressible. He has some pain with passive range of motion of the hip. - Labs CBC & Chem 7: 02/23/23 04:50 02/23/23 04:50 Labs: Abnormal Lab Results - Last 24 Hours (Table) 02/22/23 02/22/23 02/22/23 Range/Units 11:17 13:03 17:42 WBC (3.8-10.6) k/uL RBC (4.30-5.90) m/uL Hgb (13.0-17.5) gm/dL Hct (39.0-53.0) % Neutrophils # (1.3-7.7) k/uL ABG Total CO2 26 H (19-24) mmol/L ABG O2 Saturation 97.8 H (94-97) % BUN (9-20) mg/dL Creatinine (0.66-1.25) mg/dL Glucose (74-99) mg/dL POC Glucose (mg/dL) 139 H 120 H (70-110) mg/dL Calcium (8.4-10.2) mg/dL 02/23/23 02/23/23 02/23/23 Range/Units 00:10 04:50 04:50 WBC 11.1 H (3.8-10.6) k/uL RBC 3.56 L (4.30-5.90) m/uL Hgb 11.5 L (13.0-17.5) gm/dL Hct 35.0 L (39.0-53.0) % Neutrophils # 8.2 H (1.3-7.7) k/uL ABG Total CO2 (19-24) mmol/L ABG O2 Saturation (94-97) % BUN 34 H (9-20) mg/dL Creatinine 1.58 H (0.66-1.25) mg/dL Glucose 129 H (74-99) mg/dL POC Glucose (mg/dL) 125 H (70-110) mg/dL Calcium 8.2 L (8.4-10.2) mg/dL 02/23/23 Range/Units 06:23 WBC (3.8-10.6) k/uL RBC (4.30-5.90) m/uL Hgb (13.0-17.5) gm/dL Hct (39.0-53.0) % Neutrophils # (1.3-7.7) k/uL ABG Total CO2 (19-24) mmol/L ABG O2 Saturation (94-97) % BUN (9-20) mg/dL Creatinine (0.66-1.25) mg/dL Glucose (74-99) mg/dL POC Glucose (mg/dL) 138 H (70-110) mg/dL Calcium (8.4-10.2) mg/dL Assessment and Plan Assessment: Postoperative day 2 status post right direct anterior hip hemiarthroplasty Multiple medical problems Plan: Continue treatment as outlined yesterday. Leave surgical dressing in place. If the patient is able, I would recommend mobilization to a chair. I appreciate ICU, neurology and internal medicine's assistance with perioperative medical management, particularly taking the patient over as primary service. We will continue to follow while the patient is an inpatient.
[2023-02-23] MEDS ORDERED: ACETAMINOPHEN IV (For NPO) 1,000 MG in EMPTY BAG 1 BAG IVPB PRN (08:07)
--- NOTE | 2023-02-23 09:49 | P.PN ---
Subjective Progress Note Date: 02/23/23 Principal diagnosis: Respiratory failure. Pulmonary consult dated 02/22/2023. 67-year-old male seen in the emergency department, on February 19, having fallen at the group home, repeat CBC, and having a right hip fracture. The patient is postop day #1, right hip hemiarthroplasty. The patient was successfully extubated in the recovery area, but had a mental status change, and required reintubation according to anesthesia. The patient was transferred to the intensive care unit, for further monitoring and management. The patient has been resident at the group home for 3 years. The patient is quite limited, mostly in a wheelchair, and very hard of hearing or . The patient can do basic activities of daily living, but cannot shower himself. He spends most of his days in a wheelchair. Current vent settings include assist control, rate 14, tidal volume 450, FiO2 40%, and PEEP of 5. Arterial blood gases on 50% showed pO2 156, pCO2 44, pH is 7.36. The patient's on propofol at 25 mcg/kg/m, lactated Ringer's at 75 mL an hour, and vital high protein at 10 mL an hour. We will attempt a daily interruption of sedation. The respiratory therapist may or may not be able to get weaning parameters. He certainly will get a cuff leak. The patient should also probably have a blood gas prior to extubation. White count 15.5, hemoglobin 12.6, hematocrit 38.6, and platelet count 170,000. Sodium 135, potassium 4.6, chlorides 105, CO2 23, BUN 34, and the creatinine is 1.78. Chest x-ray shows very mild pulmonary vascular congestion. Progress note dated 02/23/2023. 67-year-old male who is postop day #2, status post right hip hemiarthroplasty. After surgery, the patient had issues with his respiratory status, and had to be reintubated. The patient was successfully extubated yesterday. He still in the intensive care unit, room 266. He's currently on 2 L by nasal cannula. He is getting lactated Ringer's at 75 mL an hour. He was on dexmedetomidine after extubation, until about 6:00 this morning. He never required BiPAP after extubation. White count 11.1, hemoglobin 1.5, hematocrit 35, and platelet count normal. Sodium 138, potassium 4.7, chlorides 106, CO2 24, BUN 34, and creatinine 1.5 . Calcium is 8.2. No chest x-ray today. Objective - Vital Signs Vital signs: Vital Signs Temp 99.4 F 02/23/23 08:00 Pulse 83 02/23/23 08:00 Resp 19 02/23/23 08:00 BP 129/66 02/23/23 09:00 Pulse Ox 96 02/23/23 09:00 FiO2 40 02/22/23 12:00 Intake & Output 02/22/23 02/23/23 02/23/23 18:59 06:59 18:59 Intake Total 1120.100 950.609 160 Output Total 710 585 115 Balance 410.100 365.609 45 Weight 113.7 kg 117.3 kg Intake: IV 1005 855 160 Invasive Line 1 30 30 10 Lactated Ringers 1,000 ml 975 825 150 @ 75 mls/hr IV .[id number] [facility] Rx#:[id number] Intake, IV Titration 115.100 95.609 Amount Dexmedetomidine/0.9% NaCl 12.033 95.609 (Pmx) 400 mcg In Empty Bag 1 bag @ 0.2 MCG/KG/HR 5.685 mls/hr IV .[id number] [facility] Rx#:[id number] propofoL 1,000 mg In 103.067 Empty Bag 1 bag @ 15 MCG/ KG/MIN 10.614 mls/hr IV . [id number] [facility] Rx#:[id number] Output: Urine 710 585 115 Other: Voiding Method Indwelling Catheter Indwelling Catheter Indwelling Catheter - Exam No acute distress, currently on 2 L nasal cannula. Saturations are excellent. HEENT examination is grossly unremarkable. Mucous membranes are moist. No oral lesions. Neck supple. Full range of motion. No adenopathy thyromegaly or neck vein distention. Cardiovascular examination reveals regular rhythm rate. S1-S2 normal. No S3 or S4. No discernible murmur noted. Heart rate 83 bpm. Heart sounds are distant. Lungs reveal mostly clear breath sounds. Scattered rhonchi. No wheezes or crackles. 2 L saturation is 96%. Abdomen soft bowel sounds are heard. No masses or tenderness. Extremities are intact. No cyanosis clubbing or edema. Skin is without rash or lesion. Neurologic examination is brief but nonfocal. - Labs CBC & Chem 7: 02/23/23 04:50 02/23/23 04:50 Labs: Abnormal Lab Results - Last 24 Hours (Table) 02/22/23 02/22/23 02/22/23 Range/Units 11:17 13:03 17:42 WBC (3.8-10.6) k/uL RBC (4.30-5.90) m/uL Hgb (13.0-17.5) gm/dL Hct (39.0-53.0) % Neutrophils # (1.3-7.7) k/uL ABG Total CO2 26 H (19-24) mmol/L ABG O2 Saturation 97.8 H (94-97) % BUN (9-20) mg/dL Creatinine (0.66-1.25) mg/dL Glucose (74-99) mg/dL POC Glucose (mg/dL) 139 H 120 H (70-110) mg/dL Calcium (8.4-10.2) mg/dL 02/23/23 02/23/23 02/23/23 Range/Units 00:10 04:50 04:50 WBC 11.1 H (3.8-10.6) k/uL RBC 3.56 L (4.30-5.90) m/uL Hgb 11.5 L (13.0-17.5) gm/dL Hct 35.0 L (39.0-53.0) % Neutrophils # 8.2 H (1.3-7.7) k/uL ABG Total CO2 (19-24) mmol/L ABG O2 Saturation (94-97) % BUN 34 H (9-20) mg/dL Creatinine 1.58 H (0.66-1.25) mg/dL Glucose 129 H (74-99) mg/dL POC Glucose (mg/dL) 125 H (70-110) mg/dL Calcium 8.2 L (8.4-10.2) mg/dL 02/23/23 Range/Units 06:23 WBC (3.8-10.6) k/uL RBC (4.30-5.90) m/uL Hgb (13.0-17.5) gm/dL Hct (39.0-53.0) % Neutrophils # (1.3-7.7) k/uL ABG Total CO2 (19-24) mmol/L ABG O2 Saturation (94-97) % BUN (9-20) mg/dL Creatinine (0.66-1.25) mg/dL Glucose (74-99) mg/dL POC Glucose (mg/dL) 138 H (70-110) mg/dL Calcium (8.4-10.2) mg/dL Microbiology - Last 24 Hours (Table) 02/21/23 20:15 Urine Culture - Final Urine,Catheterized Assessment and Plan Assessment: Postop day #2, status post right hip hemiarthroplasty, secondary to fall. Post extubation mental status change, in the recovery area, requiring reintubation, 02/21/2023. History of COPD. History of CVA. History of dementia. Deafness. Hyperlipidemia. Hypertension. History of multiple medical problems and comorbidities. Plan: Plan dated 02/22/2023. The patient will have a daily interruption of sedation, and possibly a spontaneous breathing trial. I'm not sure what parameters will be able to achieve from this patient. We will try a cuff leak for sure. The patient should benefit from a blood gas prior to extubation. It may be that we just take a chance and extubate him, rather than prolonged weaning attempts. In addition, we talked to his caretakers, and determined that the patient should be a DO NOT RESUSCITATE. Additional recommendations and suggestions are fo rthcoming. Prognosis is certainly guarded. Labs, x-rays, and medications are all reviewed. Progress note dated 02/23/2023. The patient is currently on oxygen at 2 L. The patient was successfully extubated yesterday. He was extubated to dexmedetomidine, but that was turned off at 6 AM. The patient is getting lactated Ringer's at 75 mL an hour. Labs, x-rays, medications unit. The patient's overall prognosis remains very guarded. The patient is a DO NOT RESUSCITATE. We did clarify that with the family members yesterday, and his medical decision-maker's. Time with Patient: Greater than 30
[2023-02-23] MEDS: QUEtiapine 100 MG TAB PO SCH ×3 (10:47→21:33)
[2023-02-23] MEDS: SERTRALINE 25 MG TAB PO SCH (10:47)
[2023-02-23] MEDS: ASPIRIN 81 MG PO SCH ×2 (10:55→21:34)
[2023-02-23] MEDS: THIAMINE 100 MG TAB PO SCH (10:55)
[2023-02-23] MEDS: FOLIC ACID 1 MG TAB PO SCH (10:55)
--- NOTE | 2023-02-23 13:07 | P.PN ---
Subjective Progress Note Date: 02/23/23 patient is a 67-year-old gentleman with past medical history significant for deafness, hypertension, urinary retention who [facility]. Unable to obtain a detailed review of systems or history from the patient, most of the history is taken from EMR, according to records, patient had unwitnessed fall. Patient never lost consciousness. Patie nt was worked up in the ER. Initial lab work done in the ER showed wbCs 9.1, hemoglobin 14.6, platelet count 210, sodium 137 potassium 4.6, BUN 25, creatinine 1.28 CT head done showed no acute intra cranial process CT cervical spine showed no evidence of cervical spine fracture CT abdominal and pelvis done showed valgus impacted right femoral neck fracture, prostatomegaly X-ray femur showed right femoral neck fracture Chest x-ray done in the ER showed low lung volumes generalized hazy appearance could represent atelectasis 02/21. Patient seen and examined. Troponin and proBNP are normal. EKG reviewed, no evidence of any ST segment elevation or T-wave inversions. Patient is medically cleared for surgery with moderate risk of complications. Patient is not the best historian, he refuses to answer 02/22. Patient seen and examined. Currently in ICU, intubated. Patient had surgery done yesterday, postoperatively patient developed mental status changes requiring intubation. 02/23. Patient seen and examined. Patient extubated, currently on room air. Not the best of historian. REVIEW OF SYSTEMS: Review of systems cannot be obtained because of patient's being intubated PHYSICAL EXAMINATION: GENERAL: The patient is alert HEENT: Pupils are round and equally reacting to light. EOMI. No scleral icterus. No conjunctival pallor. Normocephalic, atraumatic. No pharyngeal erythema. No thyromegaly. CARDIOVASCULAR: S1 and S2 present. No murmurs, rubs, or gallops. PULMONARY: Chest is clear to auscultation, no wheezing or crackles. ABDOMEN: Soft, nontender, nondistended, normoactive bowel sounds. No palpable organomegaly. MUSCULOSKELETAL: Right hip tenderness, externally rotated EXTREMITIES: No cyanosis, clubbing, or pedal edema. NEUROLOGICAL: Moving all extremities SKIN: No rashes. Assessment and plan right femoral neck fracture status post right hip hemiarthroplasty on 02/21 Post extubation mental status change, in the recovery area, requiring reintubation, 02/21/2023. History of COPD. History of CVA. History of dementia. Deafness. Hyperlipidemia. Hypertension. Fall Acute kidney injury hypertension Monitor vital signs Monitor CBC Monitor CMP Aggressive bronchopulmonary hygiene Continue IV fluids EEG ordered Continue pain management per orthopedics DVT prophylaxis per orthopedics Critical care following Neurology following Orthopedic following Labs and medication were reviewed.. Continue same treatment. Continue with symptomatic treatment. Resume home medication. Monitor labs and vitals. DVT and GI prophylaxis. Further recommendations as per clinical course of the patient Dictation was produced using [employer] dictation software. please excuse any grammatical, word or spelling errors. Objective - Vital Signs Vital signs: Vital Signs Temp 99.4 F 02/23/23 08:00 Pulse 83 02/23/23 08:00 Resp 19 02/23/23 08:00 BP 129/66 02/23/23 09:00 Pulse Ox 96 02/23/23 09:00 FiO2 40 02/22/23 12:00 Intake & Output 02/22/23 02/23/23 02/23/23 18:59 06:59 18:59 Intake Total 1120.100 950.609 170 Output Total 710 585 115 Balance 410.100 365.609 55 Weight 113.7 kg 117.3 kg Intake: IV 1005 855 170 Invasive Line 1 30 30 20 Lactated Ringers 1,000 ml 975 825 150 @ 75 mls/hr IV .[id number] [facility] Rx#:[id number] Intake, IV Titration 115.100 95.609 Amount Dexmedetomidine/0.9% NaCl 12.033 95.609 (Pmx) 400 mcg In Empty Bag 1 bag @ 0.2 MCG/KG/HR 5.685 mls/hr IV .[id number] [facility] Rx#:[id number] propofoL 1,000 mg In 103.067 Empty Bag 1 bag @ 15 MCG/ KG/MIN 10.614 mls/hr IV . [id number] [facility] Rx#:[id number] Output: Urine 710 585 115 Other: Voiding Method Indwelling Catheter Indwelling Catheter Indwelling Catheter - Labs CBC & Chem 7: 02/23/23 04:50 02/23/23 04:50 Labs: Abnormal Lab Results - Last 24 Hours (Table) 02/22/23 02/22/23 02/23/23 Range/Units 13:03 17:42 00:10 WBC (3.8-10.6) k/uL RBC (4.30-5.90) m/uL Hgb (13.0-17.5) gm/dL Hct (39.0-53.0) % Neutrophils # (1.3-7.7) k/uL ABG Total CO2 26 H (19-24) mmol/L ABG O2 Saturation 97.8 H (94-97) % BUN (9-20) mg/dL Creatinine (0.66-1.25) mg/dL Glucose (74-99) mg/dL POC Glucose (mg/dL) 120 H 125 H (70-110) mg/dL Calcium (8.4-10.2) mg/dL 02/23/23 02/23/23 02/23/23 Range/Units 04:50 04:50 06:23 WBC 11.1 H (3.8-10.6) k/uL RBC 3.56 L (4.30-5.90) m/uL Hgb 11.5 L (13.0-17.5) gm/dL Hct 35.0 L (39.0-53.0) % Neutrophils # 8.2 H (1.3-7.7) k/uL ABG Total CO2 (19-24) mmol/L ABG O2 Saturation (94-97) % BUN 34 H (9-20) mg/dL Creatinine 1.58 H (0.66-1.25) mg/dL Glucose 129 H (74-99) mg/dL POC Glucose (mg/dL) 138 H (70-110) mg/dL Calcium 8.2 L (8.4-10.2) mg/dL Microbiology - Last 24 Hours (Table) 02/21/23 20:15 Urine Culture - Final Urine,Catheterized
[2023-02-23 21:28] LABS: Glucose,Whole Blood 109 mg/dL (70-110)
[2023-02-23] MEDS: ATORVASTATIN 10 MG TAB PO SCH (21:33)
[2023-02-23] MEDS: SENNOSIDES-DOCUSATE SODIUM 1 EACH TAB PO SCH (21:33)
[2023-02-24 04:25] LABS: Basophils % (A) 0 %; Eosinophils # (A) 0.5 k/uL (0-0.7); Eosinophils % (A) 6 %; HCT 33.8 % (39.0-53.0); HGB 11.2 gm/dL (13.0-17.5); Lymphocytes # (A) 1.3 k/uL (1.0-4.8); Lymphocytes % (A) 15 %; MCH 32.6 pg (25.0-35.0); MCV 98.7 fL (80.0-100.0); Mean Platelet Volume 7.8; Monocytes # (A) 0.6 k/uL (0-1.0); Monocytes % (A) 7 %; Neutrophils # (A) 6.3 k/uL (1.3-7.7); Neutrophils % (A) 70 %; Platelet Count 158 k/uL (150-450); RBC 3.43 m/uL (4.30-5.90); RDW 13.1 % (11.5-15.5)
[2023-02-24 04:43] LABS: African American GFR (CKD) 76 (>60 ml/min/1.73 sqM); Blood Urea Nitrogen 29 mg/dL (9-20); Calcium 8.3 mg/dL (8.4-10.2); Carbon Dioxide 25 mmol/L (22-30); Glucose 102 mg/dL (74-99); Non-African American GFR(CKD) 66 (>60 ml/min/1.73 sqM)
[2023-02-24 05:23] LABS: Anion Gap 7 mmol/L; Chloride 106 mmol/L (98-107); Potassium 3.9 mmol/L (3.5-5.1); Sodium 138 mmol/L (137-145)
[2023-02-24 06:52] LABS: Glucose,Whole Blood 113 mg/dL (70-110)
[2023-02-24] MEDS: INSULIN ASPART (NovoLOG) 100 UNIT/ML VIAL SQ SCH ×4 (07:31→20:36)
[2023-02-24] MEDS: LACTATED RINGERS 1,000 ML IV SCH ×2 (07:42→12:09)
[2023-02-24] MEDS: IPRATROPIUM-ALBUTEROL 3 ML NEB INHALATION SCH ×4 (08:19→19:22)
[2023-02-24] MEDS: PANTOPRAZOLE 40 MG/10 ML VIAL IV SCH (09:21)
[2023-02-24] MEDS: levETIRAcetam IV 500 MG/5 ML VIAL IVP SCH (09:21)
[2023-02-24] MEDS: FOLIC ACID 1 MG TAB PO SCH (09:21)
[2023-02-24] MEDS: ASPIRIN 81 MG PO SCH ×2 (09:22→20:25)
[2023-02-24] MEDS: QUEtiapine 100 MG TAB PO SCH ×3 (09:22→20:25)
[2023-02-24] MEDS: SERTRALINE 25 MG TAB PO SCH (09:22)
[2023-02-24] MEDS: THIAMINE 100 MG TAB PO SCH (09:22)
[2023-02-24] MEDS ORDERED: MAGNESIUM HYDROXIDE 2,400 MG/30 ML CUP PO PRN (09:47)
--- NOTE | 2023-02-24 09:48 | P.PN ---
Subjective Progress Note Date: 02/24/23 67-year-old male seen in the emergency department, on February 19, having fallen at the [facility], repeat CBC, and having a right hip fracture. The patient is postop day #1, right hip hemiarthroplasty. The patient was successfully extubated in the recovery area, but had a mental status change, and required reintubation according to anesthesia. The patient was transferred to the intensive care unit, for further monitoring and management. The [facility] has been resident [facility] the [facility] for 3 years. The patient is quite limited, mostly in a wheelchair, and very hard of hearing or . The patient can do basic activities of daily living, but cannot shower himself. He spends most of his days in a wheelchair. Current vent settings include assist control, rate 14, tidal volume 450, FiO2 40%, and PEEP of 5. Arterial blood gases on 50% showed pO2 156, pCO2 44, pH is 7.36. The patient's on propofol at 25 mcg/kg/m, lactated Ringer's at 75 mL an hour, and vital high protein at 10 mL an hour. We will attempt a daily interruption of sedation. The respiratory therapist may or may not be able to get weaning parameters. He certainly will get a cuff leak. The patient should also probably have a blood gas prior to extubation. White count 15.5, hemoglobin 12.6, hematocrit 38.6, and platelet count 170,000. Sodium 135, potassium 4.6, chlorides 105, CO2 23, BUN 34, and the creatinine is 1.78. Chest x-ray shows very mild pulmonary vascular congestion. Progress note dated 02/23/2023. 67-year-old male who is postop day #2, status post right hip hemiarthroplasty. After surgery, the patient had issues with his respiratory status, and had to be reintubated. The patient was successfully extubated yesterday. He still in the intensive care unit, room 266. He's currently on 2 L by nasal cannula. He is getting lactated Ringer's at 75 mL an hour. He was on dexmedetomidine after extubation, until about 6:00 this morning. He never required BiPAP after extubation. White count 11.1, hemoglobin 1.5, hematocrit 35, and platelet count normal. Sodium 138, potassium 4.7, chlorides 106, CO2 24, BUN 34, and creatinine 1.5 . Calcium is 8.2. No chest x-ray today. On today's evaluation of a 2022, the patient is postop day #3. The patient is extubated and the patient is seizure-free. Is postop day #3 following his right hip hemiarthroplasty. He is doing well. Is hemodynamically stable. He is on room air oxygen. He is tolerating diet. He is communicating. No sig nificant education at this point in time he has a sitter at the bedside. He has obvious difficulties with healing and clinical deafness. His white cell count today's of 9 with a hemoglobin of 11.2 and a platelet count of 158. BUN is at 29 with a creatinine of 1.1 and his sodium level is at 138 and the glucose is 102. His surgical one-sided dry clean and intact. His current blood pressure is 162/92 and his current cardiac rhythm is sinus. EEG was completed today. The patient is on IV Keppra. Objective - Vital Signs Vital signs: Vital Signs Temp 98.3 F 02/24/23 08:00 Pulse 93 02/24/23 08:00 Resp 20 02/24/23 08:00 BP 164/92 02/24/23 08:00 Pulse Ox 94 L 02/24/23 08:14 FiO2 40 02/22/23 12:00 Intake & Output 02/23/23 02/24/23 02/24/23 18:59 06:59 18:59 Intake Total 930 825 225 Output Total 565 850 350 Balance 365 -25 -125 Weight 116 kg Intake: IV 930 825 225 Invasive Line 1 30 Lactated Ringers 1,000 ml 900 825 225 @ 75 mls/hr IV .[id number] [facility] Rx#:[id number] Output: Urine 565 850 350 Other: Voiding Method Indwelling Catheter Indwelling Catheter - Exam No acute distress, currently on RA . No signs of any respiratory distress, very difficult to medicate with the patient has the patient is a deaf HEENT examination is grossly unremarkable. Mucous membranes are moist. No oral lesions. Neck supple. Full range of motion. No adenopathy thyromegaly or neck vein distention. Cardiac exam revealed the PMI to be normally situated and sized. The rhythm was regular and no extrasystoles were noted during several minutes of auscultation. The first and second heart sounds were normal and physiologic splitting of the second heart sound was noted. There were no murmurs, rubs, clicks, or gallops. Lungs reveal mostly clear breath sounds. Scattered rhonchi. No wheezes or crackles. Abdominal exam revealed normal bowel sounds. The abdomen was soft, non-tender, and without masses, organomegaly, or appreciable enlargement of the abdominal aorta. Extremities are intact. No cyanosis clubbing or edema. The surgical wound on the right side is currently clean and intact. Skin is without rash or lesion. Neurologic examination is brief but nonfocal. - Labs CBC & Chem 7: 02/24/23 03:56 02/24/23 03:56 Labs: Abnormal Lab Results - Last 24 Hours (Table) 02/24/23 02/24/23 02/24/23 Range/Units 03:56 03:56 06:51 RBC 3.43 L (4.30-5.90) m/uL Hgb 11.2 L (13.0-17.5) gm/dL Hct 33.8 L (39.0-53.0) % BUN 29 H (9-20) mg/dL Glucose 102 H (74-99) mg/dL POC Glucose (mg/dL) 113 H (70-110) mg/dL Calcium 8.3 L (8.4-10.2) mg/dL Microbiology - Last 24 Hours (Table) 02/21/23 20:15 Urine Culture - Final Urine,Catheterized Assessment and Plan Plan: Postop day #3, status post right hip hemiarthroplasty, secondary to fall. Post extubation mental status change, in the recovery area, requiring reintubation, 02/21/2023. Single episode of seizure, being worked up by neurology. EEG was completed today and the patient is currently on IV Keppra. No focal neurological deficits. History of COPD. History of CVA. History of dementia. Deafness. Hyperlipidemia. Hypertension. History of multiple medical problems and comorbidities. Plan: Clinically stable Hemodynamically stable Currently on room air oxygen and utilizing an incentive spirometer Pain is under adequate control We'll give him milk of magnesia along with senna 2 facilitate his bowel movement Lovenox 40 mg subcu for DVT prophylaxis The wound over the right hip is dry clean and intact Start Norvasc 10 mg by mouth daily for a tighter blood pressure control Rest of the medications was reviewed. Continue Keppra per neurology pending EEG results
[2023-02-24] MEDS: ENOXAPARIN 40 MG/0.4 ML SYRINGE SQ SCH (09:53)
[2023-02-24] MEDS: amLODIPine 10 MG TAB PO SCH (09:53)
--- NOTE | 2023-02-24 10:21 | P.PN ---
Subjective Progress Note Date: 02/23/23 Patient was seen for a follow-up. Patient has been extubated. Patient is laying comfortably in the bed. Offers no complaints. Patient is on 2 point restraints. States he is feeling "okay". Denies dizziness. Denies headache. Objective - Vital Signs Vital signs: Vital Signs Temp 98.3 F 02/24/23 08:00 Pulse 93 02/24/23 08:00 Resp 20 02/24/23 08:00 BP 164/92 02/24/23 08:00 Pulse Ox 94 L 02/24/23 08:14 FiO2 40 02/22/23 12:00 Intake & Output 02/23/23 02/24/23 02/24/23 18:59 06:59 18:59 Intake Total 930 825 225 Output Total 565 850 350 Balance 365 -25 -125 Weight 116 kg Intake: IV 930 825 225 Invasive Line 1 30 Lactated Ringers 1,000 ml 900 825 225 @ 75 mls/hr IV .[id number] [facility] Rx#:[id number] Output: Urine 565 850 350 Other: Voiding Method Indwelling Catheter Indwelling Catheter - Exam Exam as above. Patient did not cooperate with examination in detail. Operations Intelligence Superintendent are equal. - Labs CBC & Chem 7: 02/24/23 03:56 02/24/23 03:56 Labs: Abnormal Lab Results - Last 24 Hours (Table) 02/24/23 02/24/23 02/24/23 Range/Units 03:56 03:56 06:51 RBC 3.43 L (4.30-5.90) m/uL Hgb 11.2 L (13.0-17.5) gm/dL Hct 33.8 L (39.0-53.0) % BUN 29 H (9-20) mg/dL Glucose 102 H (74-99) mg/dL POC Glucose (mg/dL) 113 H (70-110) mg/dL Calcium 8.3 L (8.4-10.2) mg/dL Microbiology - Last 24 Hours (Table) 02/21/23 20:15 Urine Culture - Final Urine,Catheterized Assessment and Plan Assessment: * New-onset seizure occurred postoperatively, unclear cause * Status post fall with right femoral neck fracture, status post arthroplasty * Abnormal CT head, with evidence of possible NPH. * Rule out UTI, earlier temperature 100.1, but now afebrile. * Acute renal insufficiency * Dementia * COPD * Hyperlipidemia * History of CVA * Hypertension * Hard of hearing * History of tobacco use. Plan: * Patient has been started on Keppra 500 mg twice a day, which will be continued for now. * Await EEG. * If the EEG does not reveal any epileptiform activity, we will rapidly taper off Keppra. Otherwise may continue Keppra if EEG shows epileptiform activity. * Patient is status post extubation doing well. * Neurology will follow clinically.
[2023-02-24 11:26] LABS: Glucose,Whole Blood 99 mg/dL (70-110)
[2023-02-24 13:39] VITALS: BMI 35.6
--- NOTE | 2023-02-24 14:38 | P.PN ---
Subjective Progress Note Date: 02/24/23 Patient was seen for a follow-up. Patient is laying comfortably in the bed. Denies any headache. No further seizures reported. Sitter was also present. Objective - Vital Signs Vital signs: Vital Signs Temp 98.3 F 02/24/23 12:00 Pulse 91 02/24/23 12:00 Resp 18 02/24/23 12:00 BP 135/76 02/24/23 12:00 Pulse Ox 94 L 02/24/23 12:00 FiO2 40 02/22/23 12:00 Intake & Output 02/23/23 02/24/23 02/24/23 18:59 06:59 18:59 Intake Total 930 825 525 Output Total 565 850 685 Balance 365 -25 -160 Weight 116 kg 116 kg Intake: IV 930 825 525 Invasive Line 1 30 Lactated Ringers 1,000 ml 900 825 525 @ 75 mls/hr IV .[id number] Rx#:[id number] Output: Urine 565 850 685 Other: Voiding Method Indwelling Catheter Indwelling Catheter Indwelling Catheter - Exam Patient keeps his eyes closed. He does wake up on calling his name, and speaks appropriately. 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 Pupils are equal, round and reacting, face is symmetric. Patient moves his feet. - Labs CBC & Chem 7: 02/24/23 03:56 02/24/23 03:56 Labs: Abnormal Lab Results - Last 24 Hours (Table) 02/24/23 02/24/23 02/24/23 Range/Units 03:56 03:56 06:51 RBC 3.43 L (4.30-5.90) m/uL Hgb 11.2 L (13.0-17.5) gm/dL Hct 33.8 L (39.0-53.0) % BUN 29 H (9-20) mg/dL Glucose 102 H (74-99) mg/dL POC Glucose (mg/dL) 113 H (70-110) mg/dL Calcium 8.3 L (8.4-10.2) mg/dL Assessment and Plan Assessment: * New-onset seizure occurred postoperatively, unclear cause * Status post fall with right femoral neck fracture, status post arthroplasty * Abnormal CT head, with evidence of possible NPH. * Rule out UTI, earlier temperature 100.1, but now afebrile. * Acute renal insufficiency * Dementia * COPD * Hyperlipidemia * History of CVA * Hypertension * Hard of hearing * History of tobacco use. Plan: * Patient has not had any further seizures. * EEG was performed, which was abnormal due to background slowing and disorganization suggestive of moderate encephalopathy. No epileptiform activity was seen. * We will decrease Keppra down to 250 mg twice a day for 3 days and then stop. * Other medical management as per IM and other specialties. * Neurology will follow clinically.
--- NOTE | 2023-02-24 14:41 | EEG ---
ELECTROENCEPHALOGRAM REPORT PREAMBLE: This is a 67-year-old male with new onset seizure. EEG FINDINGS: This is a 21-channel digital EEG recorded with video component, utilizing 10/20 international system with referential and bipolar montages. Background consists of well-developed, but somewhat disorganized background consists of mixed frequencies of some alpha, and some theta and some sporadic delta activity in bihemispheric region. Background does not seem to be reactive to eye opening or closing. Photic stimulation or hyperventilation was not done. Different stages of sleep were not seen. No focal or generalized epileptiform activity was seen. IMPRESSION: This is an abnormal EEG due to background slowing and disorganization of moderate degree. This is suggestive of generalized cerebral dysfunction as can be seen with various causes of toxic metabolic encephalopathy. Clinical correlation is recommended. No epileptiform activity was seen. MMODL / IJN: [id number] / MTDD
[2023-02-24 18:04] LABS: Glucose,Whole Blood 119 mg/dL (70-110)
[2023-02-24] MEDS ORDERED: ACETAMINOPHEN TAB 325 MG TAB PO PRN (18:56)
--- NOTE | 2023-02-24 20:10 | P.PN ---
Subjective Progress Note Date: 02/24/23 patient is a 67-year-old gentleman with past medical history significant for deafness, hypertension, urinary retention who presented to the ER from the assisted after a fall. Unable to obtain a detailed review of systems or history from the patient, most of the history is taken from EMR, according to records, patient had unwitnessed fall. Patient never lost consciousness. Patient was worked up in the ER. Initial lab work done in the ER showed wbCs 9.1, hemoglobin 14.6, platelet count 210, sodium 137 potassium 4.6, BUN 25, creatinine 1.28 CT head done showed no acute intra cranial process CT cervical spine showed no evidence of cervical spine fracture CT abdominal and pelvis done showed valgus impacted right femoral neck fracture, prostatomegaly X-ray femur showed right femoral neck fracture Chest x-ray done in the ER showed low lung volumes generalized hazy appearance could represent atelectasis 02/21. Patient seen and examined. Troponin and proBNP are normal. EKG reviewed, no evidence of any ST segment elevation or T-wave inversions. Patient is medically cleared for surgery with moderate risk of complications. Patient is not the best historian, he refuses to answer 02/22. Patient seen and examined. Currently in ICU, intubated. Patient had surgery done yesterday, postoperatively patient developed mental status changes requiring intubation. 02/23. Patient seen and examined. Patient extubated, currently on room air. Not the best of historian. 02/24/2023 Patient is seen and evaluated in follow-up today continues to be in the ICU was recently extubated yesterday and doing well on room air. Patient was noted to have an episode of seizure-like postoperatively after right hip hemiarthroplasty and remains in the ICU. EEG is ordered and pending with neurology following closely undergoing further neurological workup. Patient continues on IV Keppra and will continue. Patient does have manager security and safety at the bedside as patient is known to have dementia. Patient is currently afebrile with no reported chest pain or shortness of breath. Tolerating diet with no reported nausea or vomiting. Recommend PT/OT therapy evaluation. REVIEW OF SYSTEMS: Review of systems cannot be obtained as patient remains lethargic PHYSICAL EXAMINATION: GENERAL: The patient is lethargic although arousable, well-developed, well- nourished, obese HEENT: Pupils are round and equally reacting to light. EOMI. No scleral icterus. No conjunctival pallor. Normocephalic, atraumatic. No pharyngeal erythema. No thyromegaly. CARDIOVASCULAR: S1 and S2 present. No murmurs, rubs, or gallops. PULMONARY: Chest is clear to auscultation, no wheezing or crackles. ABDOMEN: Soft, nontender, nondistended, normoactive bowel sounds. No palpable organomegaly. MUSCULOSKELETAL: Right hip surgical site dressing is dry and intact with no significant swelling or erythema noted EXTREMITIES: No cyanosis, clubbing, or pedal edema. NEUROLOGICAL: Moving all extremities SKIN: No rashes. Assessment: right femoral neck fracture from a fall, status post right hip hemiarthroplasty on 02/21 Post extubation mental status change, in the recovery area, requiring reintubation, 02/21/2023. Successfully extubated on 02/23/2023 Acute episode of seizure, new onset, neurology following History of COPD. not in exacerbation Chronic kidney disease history History of CVA. History of dementia. Deafness. Hyperlipidemia. Hypertension. Plan: Patient remains in the ICU and was recently extubated yesterday successfully Patient with sitter at bedside for safety as patient does have dementia Neurology following and patient is maintained on IV Keppra and the dose is being decreased and monitor for any further seizure-like activity. EEG is ordered for today. Patient lives at an [facility] and will be returning there once stabilized discharge Orthopedics following and patient is status post right hip hemiarthroplasty. Right surgical site is dry and intact with continued surgical dressing Follow-up on repeat labs in the a.m. The impression and plan of care has been dictated by Christianne Gonzales, Nurse Practitioner as directed. MD Aleyda I have performed a history and examination and MDM of this patient, discussed the same with the dictator, and agree with the dictator's assessment and plan as written ,documented as a scribe. Based on total visit time, I have performed more than 50% of the visit. Objective - Vital Signs Vital signs: Vital Signs Temp 98.3 F 02/24/23 08:00 Pulse 93 02/24/23 08:00 Resp 20 02/24/23 08:00 BP 164/92 02/24/23 08:00 Pulse Ox 94 L 02/24/23 08:14 FiO2 40 02/22/23 12:00 Intake & Output 02/23/23 02/24/23 02/24/23 18:59 06:59 18:59 Intake Total 930 825 225 Output Total 565 850 350 Balance 365 -25 -125 Weight 116 kg Intake: IV 930 825 225 Invasive Line 1 30 Lactated Ringers 1,000 ml 900 825 225 @ 75 mls/hr IV .[id number] [facility] Rx#:[id number] Output: Urine 565 850 350 Other: Voiding Method Indwelling Catheter Indwelling Catheter - Labs CBC & Chem 7: 02/24/23 03:56 02/24/23 03:56 Labs: Abnormal Lab Results - Last 24 Hours (Table) 02/24/23 02/24/23 02/24/23 Range/Units 03:56 03:56 06:51 RBC 3.43 L (4.30-5.90) m/uL Hgb 11.2 L (13.0-17.5) gm/dL Hct 33.8 L (39.0-53.0) % BUN 29 H (9-20) mg/dL Glucose 102 H (74-99) mg/dL POC Glucose (mg/dL) 113 H (70-110) mg/dL Calcium 8.3 L (8.4-10.2) mg/dL Microbiology - Last 24 Hours (Table) 02/21/23 20:15 Urine Culture - Final Urine,Catheterized
[2023-02-24 20:12] LABS: Glucose,Whole Blood 147 mg/dL (70-110)
[2023-02-24] MEDS: SENNOSIDES-DOCUSATE SODIUM 1 EACH TAB PO SCH (20:25)
[2023-02-24] MEDS: ATORVASTATIN 10 MG TAB PO SCH (20:25)
[2023-02-24] MEDS: levETIRAcetam 250 MG TAB PO SCH (20:25)
[2023-02-25] MEDS: LACTATED RINGERS 1,000 ML IV SCH ×2 (02:34→15:12)
[2023-02-25 06:33] LABS: Glucose,Whole Blood 112 mg/dL (70-110)
[2023-02-25] MEDS: INSULIN ASPART (NovoLOG) 100 UNIT/ML VIAL SQ SCH ×2 (06:33→12:19)
[2023-02-25 06:50] LABS: Basophils % (A) 0 %; Eosinophils # (A) 0.5 k/uL (0-0.7); Eosinophils % (A) 5 %; HCT 35.6 % (39.0-53.0); HGB 11.8 gm/dL (13.0-17.5); Lymphocytes # (A) 1.1 k/uL (1.0-4.8); Lymphocytes % (A) 12 %; MCH 32.5 pg (25.0-35.0); MCHC 33.3 g/dL (31.0-37.0); MCV 97.7 fL (80.0-100.0); Mean Platelet Volume 8.1; Monocytes # (A) 0.6 k/uL (0-1.0); Monocytes % (A) 7 %; Neutrophils # (A) 6.7 k/uL (1.3-7.7); Neutrophils % (A) 74 %; Platelet Count 191 k/uL (150-450); RBC 3.64 m/uL (4.30-5.90); RDW 13.1 % (11.5-15.5); WBC 8.9 k/uL (3.8-10.6)
[2023-02-25 07:03] LABS: ALT 19 U/L (4-49); AST 26 U/L (17-59); African American GFR (CKD) 87 (>60 ml/min/1.73 sqM); Albumin 2.9 g/dL (3.5-5.0); Alkaline Phosphatase 65 U/L (38-126); Anion Gap 5 mmol/L; Blood Urea Nitrogen 22 mg/dL (9-20); Calcium 8.3 mg/dL (8.4-10.2); Carbon Dioxide 28 mmol/L (22-30); Chloride 106 mmol/L (98-107); Glucose 118 mg/dL (74-99); Non-African American GFR(CKD) 75 (>60 ml/min/1.73 sqM); Potassium 4.2 mmol/L (3.5-5.1); Sodium 139 mmol/L (137-145); Total Bilirubin 0.7 mg/dL (0.2-1.3); Total Protein 5.9 g/dL (6.3-8.2)
[2023-02-25] MEDS: IPRATROPIUM-ALBUTEROL 3 ML NEB INHALATION SCH ×3 (09:04→15:50)
[2023-02-25 09:28] VITALS: BP 151/78; RESP 16; TEMP 98.7
[2023-02-25] MEDS: PANTOPRAZOLE 40 MG/10 ML VIAL IV SCH (09:28)
[2023-02-25] MEDS: FOLIC ACID 1 MG TAB PO SCH (09:28)
[2023-02-25] MEDS: amLODIPine 10 MG TAB PO SCH (09:28)
[2023-02-25] MEDS: ENOXAPARIN 40 MG/0.4 ML SYRINGE SQ SCH (09:28)
[2023-02-25] MEDS: ASPIRIN 81 MG PO SCH (09:28)
[2023-02-25] MEDS: THIAMINE 100 MG TAB PO SCH (09:29)
[2023-02-25] MEDS: levETIRAcetam 250 MG TAB PO SCH (09:29)
[2023-02-25] MEDS: QUEtiapine 100 MG TAB PO SCH ×2 (09:29→12:44)
[2023-02-25] MEDS: SERTRALINE 25 MG TAB PO SCH (09:29)
--- NOTE | 2023-02-25 10:02 | P.PN ---
Subjective Progress Note Date: 02/25/23 67-year-old male seen in the emergency department, on February 19, [facility], repeat CBC, and having a right hip fracture. The patient is postop day #1, right hip hemiarthroplasty. The patient was successfully extubated in the recovery area, but had a mental status change, and required reintubation according to anesthesia. The patient was transferred to the intensive care unit, for further monitoring and management. [facility]. The patient is quite limited, mostly in a wheelchair, and very hard of hearing or . The patient can do basic activities of daily living, but cannot shower himself. He spends most of his days in a wheelchair. Current vent settings include assist control, rate 14, tidal volume 450, FiO2 40%, and PEEP of 5. Arterial blood gases on 50% showed pO2 156, pCO2 44, pH is 7.36. The patient's on propofol at 25 mcg/kg/m, lactated Ringer's at 75 mL an hour, and vital high protein at 10 mL an hour. We will attempt a daily interruption of sedation. The respiratory therapist may or may not be able to get weaning parameters. He certainly will get a cuff leak. The patient should also probably have a blood gas prior to extubation. White count 15.5, hemoglobin 12.6, hematocrit 38.6, and platelet count 170,000. Sodium 135, potassium 4.6, chlorides 105, CO2 23, BUN 34, and the creatinine is 1.78. Chest x-ray shows very mild pulmonary vascular congestion. Progress note dated 02/23/2023. 67-year-old male who is postop day #2, status post right hip hemiarthroplasty. After surgery, the patient had issues with his respiratory status, and had to be reintubated. The patient was successfully extubated yesterday. He still in the intensive care unit, room 266. He's currently on 2 L by nasal cannula. He is getting lactated Ringer's at 75 mL an hour. He was on dexmedetomidine after extubation, until about 6:00 this morning. He never required BiPAP after extubation. White count 11.1, hemoglobin 1.5, hematocrit 35, and platelet count normal. Sodium 138, potassium 4.7, chlorides 106, CO2 24, BUN 34, and creatinine 1.5 . Calcium is 8.2. No chest x-ray today. On today's evaluation of a 2022, the patient is postop day #3. The patient is extubated and the patient is seizure-free. Is postop day #3 following his right hip hemiarthroplasty. He is doing well. Is hemodynamically stable. He is on room air oxygen. He is tolerating diet. He is communicating. No sig nificant education at this point in time he has a sitter at the bedside. He has obvious difficulties with healing and clinical deafness. His white cell count today's of 9 with a hemoglobin of 11.2 and a platelet count of 158. BUN is at 29 with a creatinine of 1.1 and his sodium level is at 138 and the glucose is 102. His surgical one-sided dry clean and intact. His current blood pressure is 162/92 and his current cardiac rhythm is sinus. EEG was completed today. The patient is on IV Keppra. On 2022, the patient is postop day #4 following his right hip hemiarthroplasty. The patient is still in the intensive care unit. The patient is clinically deaf and it's particularly care with the patient. There is still a sitter the bedside. The patient remains on room air oxygen. No signs of any significant respiratory distress. No issues with pain. No issues with agitation. The blood work from today shows edematous count 8.9 with a hemoglobin of 11.8 and a platelet count of 191. BUN is 22 with a creatinine of 1 and a sodium level is at 139 with a potassium level of 4.2. Glucose at 118. Calcium level is at 8.3. LFTs are normal. There is medications include Lovenox for DVT prophylaxis 40 mg subcu. The patient is also on an aspirin. Dilaudid for pain control. The patient remains on Keppra for seizures and is currently on to 50 mg by mouth twice a day. Rest of the medications were noted. Objective - Vital Signs Vital signs: Vital Signs Temp 98.7 F 02/25/23 09:00 Pulse 81 02/25/23 09:00 Resp 16 02/25/23 09:00 BP 151/78 02/25/23 09:00 Pulse Ox 98 02/25/23 09:00 FiO2 40 02/22/23 12:00 Intake & Output 02/24/23 02/25/23 02/25/23 18:59 06:59 18:59 Intake Total 825 925 300 Output Total 1160 950 385 Balance -335 -25 -85 Weight 116 kg 115 kg Intake: IV 825 825 150 Lactated Ringers 1,000 ml 825 825 150 @ 75 mls/hr IV .[id number] [facility] Rx#:[id number] Oral 100 150 Output: Urine 1160 950 385 Other: Voiding Method Indwelling Catheter Indwelling Catheter # Bowel Movements 1 1 - Exam No acute distress, currently on RA . No signs of any respiratory distress, naomie y difficult to medicate with the patient has the patient is a deaf HEENT examination is grossly unremarkable. Mucous membranes are moist. No oral lesions. Neck supple. Full range of motion. No adenopathy thyromegaly or neck vein distention. Cardiac exam revealed the PMI to be normally situated and sized. The rhythm was regular and no extrasystoles were noted during several minutes of auscultation. The first and second heart sounds were normal and physiologic splitting of the second heart sound was noted. There were no murmurs, rubs, clicks, or gallops. Lungs reveal mostly clear breath sounds. Scattered rhonchi. No wheezes or crackles. Abdominal exam revealed normal bowel sounds. The abdomen was soft, non-tender, and without masses, organomegaly, or appreciable enlargement of the abdominal aorta. Extremities are intact. No cyanosis clubbing or edema. The surgical wound on the right side is currently clean and intact. Skin is without rash or lesion. Neurologic examination is brief but nonfocal. - Labs CBC & Chem 7: 02/25/23 06:34 02/25/23 06:34 Labs: Abnormal Lab Results - Last 24 Hours (Table) 02/24/23 02/24/23 02/25/23 Range/Units 18:03 20:11 06:32 RBC (4.30-5.90) m/uL Hgb (13.0-17.5) gm/dL Hct (39.0-53.0) % BUN (9-20) mg/dL Glucose (74-99) mg/dL POC Glucose (mg/dL) 119 H 147 H 112 H (70-110) mg/dL Calcium (8.4-10.2) mg/dL Total Protein (6.3-8.2) g/dL Albumin (3.5-5.0) g/dL 02/25/23 02/25/23 Range/Units 06:34 06:34 RBC 3.64 L (4.30-5.90) m/uL Hgb 11.8 L (13.0-17.5) gm/dL Hct 35.6 L (39.0-53.0) % BUN 22 H (9-20) mg/dL Glucose 118 H (74-99) mg/dL POC Glucose (mg/dL) (70-110) mg/dL Calcium 8.3 L (8.4-10.2) mg/dL Total Protein 5.9 L (6.3-8.2) g/dL Albumin 2.9 L (3.5-5.0) g/dL Assessment and Plan Plan: Postop day #7, status post right hip hemiarthroplasty, secondary to fall. Post extubation mental status change, in the recovery area, requiring reintubation, 02/21/2023. Single episode of seizure, being worked up by neurology. EEG was completed today and the patient is currently on po Keppra. No focal neurological deficits. EEG was completed is no seizure activity History of COPD. History of CVA. History of dementia. Deafness. Hyperlipidemia. Hypertension. History of multiple medical problems and comorbidities. Plan: Clinically stable Hemodynamically stable Currently on room air oxygen and utilizing an incentive spirometer Pain is under adequate control We'll give him milk of magnesia along with senna 2 facilitate his bowel movement Lovenox 40 mg subcu for DVT prophylaxis The wound over the right hip is dry clean and intact COntinue Norvasc 10 mg by mouth daily for a tighter blood pressure control Rest of the medications was reviewed. Continue Keppra Results of the EEG was noted Transferred to a medical surgical floor
[2023-02-25 11:36] LABS: Glucose,Whole Blood 120 mg/dL (70-110)
[2023-02-25 14:23] VITALS: PULSE 92
[2023-02-25] MEDS ORDERED: TAMSULOSIN 0.4 MG CAP.ER.24H PO STA (14:59)
--- NOTE | 2023-02-25 15:13 | P.DS ---
Providers Date of admission: 02/20/23 06:08 Expected date of discharge: 02/25/23 Attending physician: Ric Diaz MD Consults: 02/20/23 06:08 Consult Physician Routine Consulting Provider: Leroy Cassidy Consult Reason/Comments: Medical clearance Do you want consulting provider notified?: Yes, Notify in am 02/21/23 17:04 Consult Physician Routine Consulting Provider: Adeel Valencia Consult Reason/Comments: icu management Do you want consulting provider notified?: Already Contacted 02/21/23 18:43 Consult Physician Urgent Consulting Provider: Sixto Valencia Consult Reason/Comments: New onset witnessed seizure Do you want consulting provider notified?: Already Contacted Primary care physician: Lalo Tubbs Hospital Course: Final diagnosis right femoral neck fracture from a fall, status post right hip hemiarthroplasty on 02/21 Post extubation mental status change, in the recovery area, requiring reintubation, 02/21/2023. Successfully extubated on 02/23/2023 Acute episode of seizure, new onset, neurology following, no further episodes History of COPD. not in exacerbation Chronic kidney disease history History of CVA. History of dementia. Deafness. Hyperlipidemia. Hypertension. Discharge disposition Patient is being discharged in a stable condition with guarded prognosis to [facility] on the [address]. Patient will follow-up with Dr. Tubbs in the outpatient setting upon discharge. Patient is to continue with Flomax daily for the next few days and monitor for any signs of urinary retention. Patient follow-up with orthopedics outpatient as scheduled. Total time taken is greater than 35 minutes. Hospital course This is a 67-year-old male who was recently admitted admitted under orthopedic services for right hip fracture. Patient underwent right hip hemiarthroplasty and was orthopedically cleared. Patient developed some altered mentation after surgery requiring reintubation within the ICU. Patient was successfully extubated and was also noted to have one acute episode of seizure with neurology undergoing workup. Patient was continued on Keppra low-dose which has been titrated and no further seizure-like activity. Patient did have an abnormal EEG with some background slowing with no epileptiform discharges noted. Patient has been cleared by consultations for discharge to [facility]. Please refer to other consultation notes for further HPI. Currently no reports of chest pain, shortness of breath, or palpitations. Patient is afebrile. No reports of nausea or vomiting and patient is tolerating diet. Had indwelling Quinones catheter removed today and due to void, I have added Flomax 0.4 mg daily and would recommend continuing for the next 1 week. Monitor for any retention and may require straight catheterization if bladder scan is over 400. Patient had indwelling Quinones catheter for surgical procedure. Patient will be going to [facility] on the [place] today. Physical exam: Gen: This is a 67-year-old male who is awake, alert and oriented 1-2, baseline, dementia, well-developed, well-nourished, obese, deaf HEENT: Head is atraumatic, normocephalic. Pupils equal, round. Sclerae is anicteric. NECK: Supple. No JVD. No lymphadenopathy. No thyromegaly. LUNGS: Diminished breath sounds bilaterally with some scattered rhonchi. No intercostal retractions. HEART: Regular rate and rhythm. No murmur. ABDOMEN: Soft. Obese Bowel sounds are present. No masses. No tenderness. EXTREMITIES: No pedal edema. No calf tenderness. Right hip surgical dressing dry and intact NEUROLOGICAL: Patient is awake, alert and oriented x1-2. Cranial nerves 2 through 12 are grossly intact. Diffusely weak Please refer to medication reconciliation sheet for a list of medications. The impression and plan of care has been dictated by Christianne Gonzales, Nurse Practitioner as directed. Dr. Josh MD I have performed a history and examination and MDM of this patient, discussed the same with the dictator, and agree with the dictator's assessment and plan as written ,documented as a scribe. Based on total visit time, I have performed more than 50% of the visit. Patient Condition at Discharge: Stable Plan - Discharge Summary Discharge Rx Participant: No New Discharge Prescriptions: New HYDROcodone/APAP 5-325MG [[place] 5-325] 1 tab PO Q6HR PRN 7 Days #28 tab PRN Reason: Pain Doxycycline Monohydrate 100 mg PO BID 14 Days #28 cap Omeprazole 40 mg PO DAILY 30 Days #30 cap Ipratropium-Albuterol Nebulize [Duoneb 0.5 mg-3 mg/3 ml Soln] 3 ml INHALATION RT-QID each Tamsulosin [Flomax] 0.4 mg PO DAILY 7 Days #7 cap Enoxaparin [Lovenox] 40 mg SQ DAILY each Docusate [Colace] 100 mg PO BID #60 capsule Sennosides-Docusate Sodium [Senokot-S] 2 each PO HS tab Continue Thiamine HCl [Vitamin B-1] 100 mg PO DAILY amLODIPine [Norvasc] 10 mg PO DAILY Folic Acid 0.4 mg PO DAILY Atorvastatin [Lipitor] 10 mg PO HS Acetaminophen Tab [Tylenol] 650 mg PO Q8H PRN PRN Reason: Pain Aspirin 81 mg PO DAILY QUEtiapine [SEROquel] 100 mg PO TID@0900,1300,2100 Sertraline [Zoloft] 25 mg PO DAILY Discontinued Propranolol HCl [Inderal] 60 mg PO DAILY Discharge Medication List Atorvastatin [Lipitor] 10 mg PO HS 04/14/20 [History] Folic Acid 0.4 mg PO DAILY 04/14/20 [History] Thiamine HCl [Vitamin B-1] 100 mg PO DAILY 04/14/20 [History] amLODIPine [Norvasc] 10 mg PO DAILY 04/14/20 [History] Acetaminophen Tab [Tylenol] 650 mg PO Q8H PRN 06/14/20 [History] Aspirin 81 mg PO DAILY 06/14/20 [History] QUEtiapine [SEROquel] 100 mg PO TID@0900,1300,2100 02/20/23 [History] Sertraline [Zoloft] 25 mg PO DAILY 02/20/23 [History] Docusate [Colace] 100 mg PO BID #60 capsule 02/21/23 [Rx] Doxycycline Monohydrate 100 mg PO BID 14 Days #28 cap 02/21/23 [Rx] HYDROcodone/APAP 5-325MG [[place] 5-325] 1 tab PO Q6HR PRN 7 Days #28 tab 02/21/23 [Rx] Omeprazole 40 mg PO DAILY 30 Days #30 cap 02/21/23 [Rx] Enoxaparin [Lovenox] 40 mg SQ DAILY each 02/25/23 [Rx] Ipratropium-Albuterol Nebulize [Duoneb 0.5 mg-3 mg/3 ml Soln] 3 ml INHALATION RT-QID each 02/25/23 [Rx] Sennosides-Docusate Sodium [Senokot-S] 2 each PO HS tab 02/25/23 [Rx] Tamsulosin [Flomax] 0.4 mg PO DAILY 7 Days #7 cap 02/25/23 [Rx] Follow up Appointment(s)/Referral(s): Lalo Tubbs MD [Primary Care Provider] - 1-2 days Alonso Roy MD [Medical Doctor] - 2 Weeks Activity/Diet/Wound Care/Special Instructions: Orthopedic instructions: Weight bear to tolerance on operative extremity with a walker. Up with assistance only. Fall precautions. Keep operative dressing in place until follow-up appointment in the office. Call the office if dressing becomes saturated or falls off. May shower over dressing. Take pain medication as needed. Take aspirin 81mg twice a day x 4 weeks for bl ood clot prevention. Take antibiotics as prescribed. Follow-up in the office in two weeks at [facility]. Call the office with any questions or concerns, Discharge Disposition: TRANSFER TO SNF/ECF
== END 2023-02-25 16:26 | DRG 521 ==
LOC: EC 23:25 → 4SSUR 02-20 06:08 → 2SICU 02-21 15:54
PROVIDERS: ADMIT Internal Medicine; ATTEND Internal Medicine
PROC: 0SRR0J9 Replacement of Right Hip Joint, Femoral Surface with Synthetic Substitute, Cemented, Open Approach (ICD-10-PCS; principal; 2023-02-21 10:00)
DX: S72.011A Unspecified intracapsular fracture of right femur, initial encounter for closed fracture (principal); J96.90 Respiratory failure, unspecified, unspecified whether with hypoxia or hypercapnia; N17.9 Acute kidney failure, unspecified; K57.92 Diverticulitis of intestine, part unspecified, without perforation or abscess without bleeding; G93.49 Other encephalopathy; G91.9 Hydrocephalus, unspecified; F01.53 Vascular dementia, unspecified severity, with mood disturbance; W19.XXXA Unspecified fall, initial encounter; Z66 Do not resuscitate; N40.0 Benign prostatic hyperplasia without lower urinary tract symptoms; I25.10 Atherosclerotic heart disease of native coronary artery without angina pectoris; I10 Essential (primary) hypertension; K59.00 Constipation, unspecified; E78.5 Hyperlipidemia, unspecified; R13.19 Other dysphagia; R56.9 Unspecified convulsions; J44.9 Chronic obstructive pulmonary disease, unspecified; H91.3 Deaf nonspeaking, not elsewhere classified; Y92.129 Unspecified place in nursing home as the place of occurrence of the external cause; Z68.37 Body mass index [BMI] 37.0-37.9, adult; Z78.1 Physical restraint status; Z79.82 Long term (current) use of aspirin; Z79.899 Other long term (current) drug therapy; Z80.1 Family history of malignant neoplasm of trachea, bronchus and lung; Z82.49 Family history of ischemic heart disease and other diseases of the circulatory system; Z86.73 Personal history of transient ischemic attack (TIA), and cerebral infarction without residual deficits; Z87.891 Personal history of nicotine dependence
CPT/HCPCS: 36415; 36600; 51702; 51798; 70450; 71045; 72125; 73501; 73502; 74177; 80048; 80053; 81001; 82805; 83690; 83735; 83880; 84484; 85025; 85027; 85610; 85730; 86850; 86900; 86901; 87086; 94002; 94003; 94640; 95816; 96374; 96375; 96376; 99285

== ENCOUNTER 2023-03-08 07:42 | Emergency (ER) | payer MEDICARE, OTHER ==
[2023-03-08 07:50] VITALS: RESP 18; TEMP 98.2
[2023-03-08] MEDS ORDERED: DIPH,PERTUS(ACELL)TETVAC-LF 0.5 ML VIAL IM ONE (08:00)
--- NOTE | 2023-03-08 08:10 | ED ---
General Adult HPI - General Chief complaint: Fall Stated complaint: Fall, No Thinners Time Seen by Provider: 03/08/23 07:50 Source: patient, EMS, RN notes reviewed, old records reviewed Mode of arrival: EMS Limitations: no limitations - History of Present Illness Initial comments: This is a 67-year-old male who presents to the emergency department because he rolled out of bed and was found in the ground. Patient states she just rolled over and fell out of bed and hit his head he denies any loss of consciousness he denies neck pain. Patient denies headache. Patient is not on any blood thinners. Patient denies chest pain or back pain. Patient denies any abdominal pain patient denies nausea vomiting diarrhea. Patient denies any other pain at all. - Related Data Home Medications Medication Instructions Recorded Confirmed Atorvastatin [Lipitor] 10 mg PO HS 04/14/20 02/20/23 Folic Acid 0.4 mg PO DAILY 04/14/20 02/20/23 Thiamine HCl [Vitamin B-1] 100 mg PO DAILY 04/14/20 02/20/23 amLODIPine [Norvasc] 10 mg PO DAILY 04/14/20 02/20/23 Acetaminophen Tab [Tylenol] 650 mg PO Q8H PRN 06/14/20 02/20/23 QUEtiapine [SEROquel] 100 mg PO TID@0900,1300,2100 02/20/23 02/20/23 Sertraline [Zoloft] 25 mg PO DAILY 02/20/23 02/20/23 Previous Rx's Medication Instructions Recorded Docusate [Colace] 100 mg PO BID #60 capsule 02/21/23 Doxycycline Monohydrate 100 mg PO BID 14 Days #28 cap 02/21/23 HYDROcodone/APAP 5-325MG [[place] 1 tab PO Q6HR PRN 7 Days #28 tab 02/21/23 5-325] Omeprazole 40 mg PO DAILY 30 Days #30 cap 02/21/23 Aspirin 81 mg PO BID tab 02/25/23 Ipratropium-Albuterol Nebulize 3 ml INHALATION RT-QID each 02/25/23 [Duoneb 0.5 mg-3 mg/3 ml Soln] Sennosides-Docusate Sodium 2 each PO HS tab 02/25/23 [Senokot-S] Tamsulosin [Flomax] 0.4 mg PO DAILY 7 Days #7 cap 02/25/23 Allergies Allergy/AdvReac Type Severity Reaction Status Date / Time No Known Allergies Allergy Verified 03/08/23 07:50 Review of Systems ROS Statement: Those systems with pertinent positive or pertinent negative responses have been documented in the HPI. ROS Other: All systems not noted in ROS Statement are negative. Past Medical History Past Medical History: COPD, CVA/TIA, Dementia, Hearing Disorder / Deafness, Hyperlipidemia, Hypertension, Prostate Disorder Additional Past Medical History / Comment(s): AMS changes/ischemic encephalopathy/vascular dementia/CPD/ASHD/presbycusis. He had a LP performed and was transferred to [facility]. Discharge diagnosis from [facility] list: severe generali zed intracranial leukoencephalopathy/cerebral ventriculomegaly/cerebral atrophy/neurogenic dysphagia/UTI/urinary retention/constipation/suspected dysautonomally, acute encephalopathy. [facility] states they were also told uncontrolled HTN/hydrocephalus/advance dementia/uti. Other hx: 2013 CVA without residual, CRAIG bilaterally/speak in R ear, occasional urinary incontinence/frequency, CKD, nephrolithiasis, BPH, occasional back pain. History of Any Multi-Drug Resistant Organisms: None Reported Past Surgical History: Appendectomy Additional Past Surgical History / Comment(s): colonoscopy, urology surgery Past Anesthesia/Blood Transfusion Reactions: No Reported Reaction Past Psychological History: Anxiety, Depression Smoking Status: Former smoker Past Alcohol Use History: None Reported Past Drug Use History: None Reported - Past Family History Mother Family Medical History: Dementia, Hypertension Father Family Medical History: Cancer Additional Family Medical History / Comment(s): Lung cancer. Father was a smoker. General Exam - General Exam Comments Initial Comments: GENERAL: Patient is well-developed and well-nourished. Patient is nontoxic and well- hydrated and is in no acute distress. ENT: Neck is soft and supple. No significant lymphadenopathy is noted. Oropharynx is clear. Moist mucous membranes. Neck has full range of motion without eliciting any pain. EYES: The sclera were anicteric and conjunctiva were pink and moist. Extraocular movements were intact and pupils were equal round and reactive to light. Eyelids were unremarkable. PULMONARY: Unlabored respirations. Good breath sounds bilaterally. No audible rales rhonchi or wheezing was noted. CARDIOVASCULAR: There is a regular rate and rhythm without any murmurs gallops or rubs. ABDOMEN: Soft and nontender with normal bowel sounds. SKIN: There is a half a centimeter laceration to the lateral aspect of the left eyebrow NEUROLOGIC: Patient is alert and oriented 2. Cranial nerves II through XII are grossly intact. Motor and sensory are also intact. Normal speech, volume and content. Symmetrical smile. MUSCULOSKELETAL: Normal extremities with adequate strength and full range of motion. LYMPHATICS: No significant lymphadenopathy is noted PSYCHIATRIC: Normal psychiatric evaluation. Limitations: no limitations Course Vital Signs 03/08/23 03/08/23 03/08/23 07:47 08:00 09:00 Temperature 98.2 F Pulse Rate 78 72 74 Respiratory 18 18 18 Rate Blood Pressure 120/85 120/85 142/84 O2 Sat by Pulse 97 97 98 Oximetry Procedures - Laceration Laceration #1 Consent Obtained: verbal consent Indication: laceration Site: face Description: linear Depth: simple, single layer Type of Sutures: other (Exofin) Patient Tolerated Procedure: well, no complications Medical Decision Making - Medical Decision Making Was pt. sent in by a medical professional or institution (, PA, TILE LAYER, urgent care, hospital, or prison...) When possible be specific @ -Patient was sent in by the prison Did you speak to anyone other than the patient for history (EMS, parent, family, police, friend...)? What history was obtained from this source @ -EMS gave us all of the history on this patient Did you review nursing and triage notes (agree or disagree)? Why? @ -I reviewed and agree with nursing and triage notes Were old charts reviewed (outside hosp., previous admission, EMS record, old EKG, old radiological studies, urgent care reports/EKG's, prison records)? Report findings @ -I reviewed prior charts by her lab work Differential Diagnosis (chest pain, altered mental status, abdominal pain women, abdominal pain men, vaginal bleeding, weakness, fever, dyspnea, syncope, headache, dizziness, GI bleed, back pain, seizure, CVA, palpatations, mental health, musculoskeletal)? @ -Differential Musculoskeletal Muscular strain, contusion, ligament sprain, fracture, arthritis, septic arthritis, bursitis, cellulitis, muscle spasm, nerve compression, DVT, arterial occlusion, herpes zoster, electrolyte abnormality, tumor.... This is not meant to be in all inclusive list EKG interpreted by me (3pts min.). @ -As above X-rays interpreted by me (1pt min.). @ -None done CT interpreted by me (1pt min.). @ -CT of the brain and C-spine showed no acute abnormality U/S interpreted by me (1pt. min.). @ -None done What testing was considered but not performed or refused? (CT, X-rays, U/S, labs)? Why? @ -None What meds were considered but not given or refused? Why? @ -None Did you discuss the management of the patient with other professionals (professionals i.e. DrYaz, PA, TILE L[employer]ER, lab, RT, psych nurse, social insurance analyst, living supervisor, teacher, small business banking officer, outpatient case manager)? Give summary @ -No Was smoking cessation discussed for >3mins.? @ -No Was critical care preformed (if so, how long)? @ -No Were there social determinants of health that impacted care today? How? (Homelessness, low income, unemployed, alcoholism, drug addiction, transportation, low edu. Level, literacy, decrease access to med. care, [facility], rehab)? @ -No Was there de-escalation of care discussed even if they declined (Discuss DNR or withdrawal of care, Hospice)? DNR status @ -No What co-morbidities impacted this encounter? (DM, HTN, Smoking, COPD, CAD, Cancer, CVA, ARF, Chemo, Hep., AIDS, mental health diagnosis, sleep apnea, morbid obesity)? @ -None Was patient admitted / discharged? Hospital course, mention meds given and route, prescriptions, significant lab abnormalities, going to OR and other pertinent info. @ -2 small 1 cm laceration to the lateral aspect of the left eyebrow and I used Exofin to close that. Patient also received a tetanus shot. CAT scans were normal. Patient was at his baseline patient be discharged home. Undiagnosed new problem with uncertain prognosis? @ -No Drug Therapy requiring intensive monitoring for toxicity (Heparin, Nitro, Insulin, Cardizem)? @ -No Were any procedures done? @ -No Diagnosis/symptom? @ -Laceration forehead Acute, or Chronic, or Acute on Chronic? @ -Acute Uncomplicated (without systemic symptoms) or Complicated (systemic symptoms)? @ -Uncomplicated Side effects of treatment? @ -No Exacerbation, Progression, or Severe Exacerbation? @ -No Poses a threat to life or bodily function? How? (Chest pain, USA, [place], pneumonia, PE, COPD, DKA, ARF, appy, cholecystitis, CVA, Diverticulitis, Homicidal, Suicidal, threat to staff... and all critical care pts) @ -No Diagnosis/symptom? @ -Head injury Acute, or Chronic, or Acute on Chronic? @ -Acute Uncomplicated (without systemic symptoms) or Complicated (systemic symptoms)? @ -Complicated Side effects of treatment? @ -none Exacerbation, Progression, or Severe Exacerbation] @ -no Poses a threat to life or bodily function? @ -no Disposition Clinical Impression: Forehead laceration, Head injury Disposition: HOME SELF-CARE Instructions (If sedation given, give patient instructions): Fall Prevention for Older Adults (ED), Laceration (ED) Is patient prescribed a controlled substance at d/c from ED?: No Referrals: Lalo Tubbs MD [Primary Care Provider] - 1-2 days Time of Disposition: 09:56
--- NOTE | 2023-03-08 08:36 | CT ---
EXAMINATION TYPE: CT brain cspine wo con CT DLP: 60125 mGycm, Automated exposure control for dose reduction was used. DATE OF EXAM: 03/08/2023 8:26 AM COMPARISON: CT brain C-spine 02/20/2023. CLINICAL INDICATION:Male, 67 years old with history of Trauma; Fall TECHNIQUE: Brain: Multiple axial CT images of the brain were obtained without IV contrast. Cspine: Axial CT images from the skull base to the inferior aspect of T2 we obtained without intraven ous contrast. Coronal and sagittal reformatted images were also reviewed. FINDINGS: Brain: Extra-axial spaces: No abnormal extra-axial fluid collections. Ventricular system: Dilatation in proportion to cerebral atrophy. Cerebral parenchyma: Cerebral atrophy. No acute intraparenchymal hemorrhage or mass effect. Remote le ft thalamus lacunar injury. The dee-white junction is well differentiated. Confluent hypoattenuating areas are seen within the white matter. Cerebellum: Unremarkable. Mass effect: No evidence of midline shift. Intracranial vasculature: Atherosclerotic calcifications of the intracranial vessels. Soft tissues: Normal. Calvarium/osseous structures: No depressed skull fracture. Paranasal sinuses and mastoid air cells: Clear. Visualized orbits: Bilateral aphakia Cervical spine: Fracture: None. Osseous structures: Multilevel degenerative disc disease changes with endplate spurring and disc oste ophyte complex's. Vertebral alignment: Within normal limits. Spinal canal/Neural Foramina: Disc osteophyte complexes at C3-C4 and C4-C5. With at least mild spinal canal stenosis. Facet joint uncovertebral joint arthropathy scattered throughout the cervical spine with varying degrees of neural foraminal stenosis. Neck soft tissues: Prevertebral soft tissues are within normal limits. Other: The airway is patent. The lung apices are clear. Atherosclerosis of the carotid bifurcations. Mild paraseptal emphysema. IMPRESSION: 1. No acute intracranial process. 2. Remote left thalamic lacunar injury along with nonspecific white matter changes likely secondary to chronic microangiopathy. 3. No evidence of cervical spine fracture. 4. Mild multilevel degenerative disc disease.
[2023-03-08] MEDS ORDERED: TOPICAL SKIN ADHESIVE 1 EACH AMP TOPICAL ONE (08:50)
[2023-03-08 09:08] VITALS: BP 142/84; PULSE 74
== END 2023-03-08 10:10 | disposition home or self-care (01) ==
LOC: EEVIPCON 07:42 → EC 07:42
DX: S01.81XA Laceration without foreign body of other part of head, initial encounter (principal); I12.9 Hypertensive chronic kidney disease with stage 1 through stage 4 chronic kidney disease, or unspecified chronic kidney disease; J44.9 Chronic obstructive pulmonary disease, unspecified; E78.5 Hyperlipidemia, unspecified; F41.9 Anxiety disorder, unspecified; F32.A Depression, unspecified; N18.9 Chronic kidney disease, unspecified; Z87.891 Personal history of nicotine dependence; Z79.899 Other long term (current) drug therapy; Z90.49 Acquired absence of other specified parts of digestive tract; Z23 Encounter for immunization; W06.XXXA Fall from bed, initial encounter
CPT/HCPCS: 12011; 70450; 72125; 90471; 90715; 99285

== ENCOUNTER 2024-01-03 22:14 | Inpatient (IN) | payer MEDICARE ==
--- NOTE | 2024-01-03 23:05 | ED ---
Lower Extremity Injury HPI - General Chief Complaint: Extremity Injury, Lower Stated Complaint: Left hip fracture Time Seen by Provider: 01/03/24 22:18 Source: patient, EMS Mode of arrival: ambulatory Limitations: language barrier (Is deaf) - History of Present Illness Initial Comments: Patient is a 68-year-old man, [facility] pain. The patient reportedly fell 2 days ago. It is reported that he had x-ray showing left hip fracture. The patient is extremely hard of hearing and required me to write out questions for him which she is able to verbally answer. Patient declined analgesic at initial history and physical. Denies other injury related to the fall. MD Complaint: hip injury Onset/Timin -: days(s) Injury: Thigh: Left Type of Injury: blunt Place: SNF Severity: moderate Improves With: nothing Worsens With: movement, palpation Context: fall Associated Symptoms: unable to bear weight - Related Data Home Medications Medication Instructions Recorded Confirmed Atorvastatin [Lipitor] 10 mg PO HS 04/14/20 01/04/24 Folic Acid 0.4 mg PO DAILY 04/14/20 01/04/24 Thiamine HCl [Vitamin B-1] 100 mg PO DAILY 04/14/20 01/04/24 Acetaminophen Tab [Tylenol] 650 mg PO Q6H PRN 06/14/20 01/04/24 QUEtiapine [SEROquel] 100 mg PO HS 02/20/23 01/04/24 Sertraline [Zoloft] 25 mg PO DAILY 02/20/23 01/04/24 HYDROcodone/APAP 5-325MG [[place] 1 tab PO BID PRN 01/04/24 01/04/24 5-325] HYDROcodone/APAP 5-325MG [[place] 1 tab PO Q8H 01/04/24 01/04/24 5-325] Lactose-Reduced Food [Ensure Plus] 237 ml PO DAILY 01/04/24 01/04/24 Magnesium Hydroxide [Milk of 2,400 mg PO DAILY PRN 01/04/24 01/04/24 Magnesia] Na Phos,M-B/Na Phos,Di-Ba [Fleet 133 ml RECTAL DAILY PRN 01/04/24 01/04/24 Adult] Omeprazole [PriLOSEC] 20 mg PO DAILY 01/04/24 01/04/24 QUEtiapine [SEROquel] 50 mg PO BID@0900,1400 01/04/24 01/04/24 Sennosides/Docusate Sodium [[place] 2 tab PO HS 01/04/24 01/04/24 Plus 8.6-50 mg Tablet] Sertraline HCl [Zoloft] 50 mg PO DAILY 01/04/24 01/04/24 bisacodyL [Dulcolax] 10 mg RECTAL DAILY PRN 01/04/24 01/04/24 metFORMIN HCL ER [Glucophage XR] 500 mg PO DAILY 01/04/24 01/04/24 Previous Rx's Medication Instructions Recorded Docusate [Colace] 100 mg PO BID #60 capsule 02/21/23 Aspirin 81 mg PO BID #60 tab 01/08/24 Docusate [Colace] 100 mg PO BID #60 capsule 01/08/24 HYDROcodone/APAP 5-325MG [[place] 1 - 2 tab PO Q6HR PRN #32 tab 01/08/24 5-325] Aspirin 81 mg PO DAILY #0 01/12/24 Famotidine [Pepcid] 20 mg PO BID tab 01/12/24 levETIRAcetam [Keppra] 500 mg PO Q12HR #60 tab 01/12/24 Allergies Allergy/AdvReac Type Severity Reaction Status Date / Time No Known Allergies Allergy Verified 01/05/24 18:16 Review of Systems ROS Statement: Those systems with pertinent positive or pertinent negative responses have been documented in the HPI. ROS Other: All systems not noted in ROS Statement are negative. Past Medical History Past Medical History: COPD, CVA/TIA, Dementia, Hearing Disorder / Deafness, Hyperlipidemia, Hypertension, Prostate Disorder Additional Past Medical History / Comment(s): AMS changes/ischemic encephalopa thy/vascular dementia/CPD/ASHD/presbycusis. He had a LP performed and was transferred to [facility]. Discharge diagnosis from [facility] list: severe generalized intracranial leukoencephalopathy/cerebral ventriculomegaly/cerebral atrophy/neurogenic dysphagia/UTI/urinary retention/constipation/suspected dysautonomally, acute encephalopathy. [facility] states they were also told uncontrolled HTN/hydrocephalus/advance dementia/uti. Other hx: 2013 CVA without residual, [place] bilaterally/speak in R ear, occasional urinary incontinence/frequency, CKD, nephrolithiasis, BPH, occasional back pain. History of Any Multi-Drug Resistant Organisms: None Reported Past Surgical History: Appendectomy Additional Past Surgical History / Comment(s): colonoscopy, urology surgery Past Anesthesia/Blood Transfusion Reactions: No Reported Reaction Past Psychological History: Anxiety, Depression Smoking Status: Former smoker Past Alcohol Use History: None Reported Past Drug Use History: None Reported - Past Family History Mother Family Medical History: Dementia, Hypertension Father Family Medical History: Cancer Additional Family Medical History / Comment(s): Lung cancer. Father was a smoker. General Exam Limitations: no limitations General appearance: alert, in no apparent distress Head exam: Present: atraumatic, normocephalic Neck exam: Present: normal inspection, full ROM. Absent: tenderness Respiratory exam: Present: normal lung sounds bilaterally. Absent: respiratory distress, wheezes, rales, rhonchi, stridor, chest wall tenderness, accessory muscle use Cardiovascular Exam: Present: regular rate, normal rhythm, normal heart sounds. Absent: systolic murmur, diastolic murmur, rubs, gallop GI/Abdominal exam: Present: soft. Absent: distended, tenderness, guarding, rebound, rigid, mass Extremities exam: Present: normal inspection, normal capillary refill. Absent: pedal edema, calf tenderness Back exam: Present: normal inspection. Absent: CVA tenderness (R), CVA tenderness (L) Neurological exam: Present: alert Skin exam: Present: warm, dry, intact, normal color. Absent: rash Course Vital Signs 01/03/24 01/04/24 01/04/24 22:21 01:53 02:55 Temperature 98.9 F Pulse Rate 79 82 76 Respiratory 16 18 18 Rate Blood Pressure 138/87 139/80 139/80 O2 Sat by Pulse 97 95 94 L Oximetry 01/04/24 04:10 Temperature 97.9 F Pulse Rate 82 Respiratory 20 Rate Blood Pressure 137/88 O2 Sat by Pulse 93 L Oximetry Medical Decision Making - Medical Decision Making The patient had a hip x-ray that I interpreted as not showing definite bony injury. The patient remained unable to bear weight due to significant pain and therefore he is sent for CT scan which I interpreted as showing subcapital femoral fracture. The case is discussed with orthopedic surgery, patient will be admitted for probable surgical repair. Was pt. sent in by a medical professional or institution (, PA, GIVING OFFICER, urgent care, hospital, or [facility]...) When possible be specific @ -[No] Did you speak to anyone other than the patient for history (EMS, parent, family, police, friend...)? What history was obtained from this source @ -[No] Did you review nursing and triage notes (agree or disagree)? Why? @ -[I reviewed and agree with nursing and triage notes] Were old charts reviewed (outside hosp., previous admission, EMS record, old EKG, old radiological studies, urgent care reports/EKG's, [facility] records)? Report findings @ -[No old charts were reviewed] Differential Diagnosis (chest pain, altered mental status, abdominal pain women, abdominal pain men, vaginal bleeding, weakness, fever, dyspnea, syncope, headache, dizziness, GI bleed, back pain, seizure, CVA, palpatations, mental health, musculoskeletal)? @ -Differential Musculoskeletal Muscular strain, contusion, ligament sprain, fracture, arthritis, septic arthritis, bursitis, cellulitis, muscle spasm, nerve compression, DVT, arterial occlusion, herpes zoster, electrolyte abnormality, tumor.... This is not meant to be in all inclusive list EKG interpreted by me (3pts min.). @ -[I interpreted as above] X-rays interpreted by me (1pt min.). @ -[I interpreted as above CT interpreted by me (1pt min.). @ -[I interpreted as above U/S interpreted by me (1pt. min.). @ -[None done] What testing was considered but not performed or refused? (CT, X-rays, U/S, labs)? Why? @ -[None] What meds were considered but not given or refused? Why? @ -[None] Did you discuss the management of the patient with other professionals (professionals i.e. , RALF, GIVING OFFICER, lab, RT, psych nurse, social services manager, metal gauge maker, te acher, district resource officer, skilled nursing case manager)? Give summary @ -[No] Was smoking cessation discussed for >3mins.? @ -[No] Was critical care preformed (if so, how long)? @ -[No] Were there social determinants of health that impacted care today? How? (Homelessness, low income, unemployed, alcoholism, drug addiction, transportation, low edu. Level, literacy, decrease access to med. care, correction, rehab)? @ -[No] Was there de-escalation of care discussed even if they declined (Discuss DNR or withdrawal of care, Hospice)? DNR status @ -[No] What co-morbidities impacted this encounter? (DM, HTN, Smoking, COPD, CAD, Cancer, CVA, ARF, Chemo, Hep., AIDS, mental health diagnosis, sleep apnea, morbid obesity)? @ -[None] Was patient admitted / discharged? Hospital course, mention meds given and route, prescriptions, significant lab abnormalities, going to OR and other pertinent info. @ -[See above Undiagnosed new problem with uncertain prognosis? @ -[No] Drug Therapy requiring intensive monitoring for toxicity (Heparin, Nitro, Insulin, Cardizem)? @ -[No] Were any procedures done? @ -[No] Diagnosis/symptom? @ -[Acute hip fracture Acute, or Chronic, or Acute on Chronic? @ -Acute Uncomplicated (without systemic symptoms) or Complicated (systemic symptoms)? @ -[Uncomplicated Side effects of treatment? @ -[No] Exacerbation, Progression, or Severe Exacerbation? @ -[No] Poses a threat to life or bodily function? How? (Chest pain, [place], [place], pneumonia, PE, COPD, DKA, ARF, appy, cholecystitis, CVA, Diverticulitis, Homicidal, Suicidal, threat to staff... and all critical care pts) @ -[Yes, there is significant morbidity and mortality associated with hip fracture in elderly patients - Lab Data Result diagrams: 01/07/24 20:49 01/06/24 05:36 Lab Results 01/03/24 01/03/24 01/03/24 Range/Units 22:50 22:50 22:50 WBC 8.2 (3.8-10.6) k/uL RBC 4.90 (4.30-5.90) m/uL Hgb 15.4 (13.0-17.5) gm/dL Hct 48.7 (39.0-53.0) % MCV 99.5 (80.0-100.0) fL MCH 31.5 (25.0-35.0) pg MCHC 31.7 (31.0-37.0) g/dL RDW 13.5 (11.5-15.5) % Plt Count 155 (150-450) k/uL MPV 8.4 Neutrophils % 67 % Lymphocytes % 17 % Monocytes % 9 % Eosinophils % 5 % Basophils % 0 % Neutrophils # 5.5 (1.3-7.7) k/uL Lymphocytes # 1.4 (1.0-4.8) k/uL Monocytes # 0.7 (0-1.0) k/uL Eosinophils # 0.4 (0-0.7) k/uL Basophils # 0.0 (0-0.2) k/uL PT 11.0 (10.0-12.5) sec INR 1.0 (<1.2) APTT 21.5 L (22.0-30.0) sec Sodium 137 (137-145) mmol/L Potassium 5.1 (3.5-5.1) mmol/L Chloride 106 (98-107) mmol/L Carbon Dioxide 27 (22-30) mmol/L Anion Gap 4 mmol/L BUN 25 H (9-20) mg/dL Creatinine 1.03 (0.66-1.25) mg/dL Est GFR (CKD-EPI)AfAm 85 (>60 ml/min/1.73 sqM) Est GFR (CKD-EPI)NonAf 74 (>60 ml/min/1.73 sqM) Glucose 98 (74-99) mg/dL Calcium 9.1 (8.4-10.2) mg/dL Total Bilirubin 0.9 (0.2-1.3) mg/dL AST 22 (17-59) U/L ALT 20 (4-49) U/L Alkaline Phosphatase 49 (38-126) U/L Total Protein 6.6 (6.3-8.2) g/dL Albumin 3.7 (3.5-5.0) g/dL - EKG Data -: EKG Interpreted by [facility] EKG shows normal: sinus rhythm, axis (Normal), intervals (Normal), QRS complexes (Normal) Rate: normal (Rate 77 bpm) Interpretation: nonspecific ST-T wave changes Disposition Clinical Impression: Subcapital fracture of hip Disposition: ADMITTED IP TO THIS [facility] Condition: Fair Is patient prescribed a controlled substance at d/c from ED?: No
[2024-01-03 23:06] LABS: Basophils % (A) 0 %; Eosinophils # (A) 0.4 k/uL (0-0.7); Eosinophils % (A) 5 %; HCT 48.7 % (39.0-53.0); HGB 15.4 gm/dL (13.0-17.5); Lymphocytes # (A) 1.4 k/uL (1.0-4.8); Lymphocytes % (A) 17 %; MCH 31.5 pg (25.0-35.0); MCHC 31.7 g/dL (31.0-37.0); MCV 99.5 fL (80.0-100.0); Mean Platelet Volume 8.4; Monocytes # (A) 0.7 k/uL (0-1.0); Monocytes % (A) 9 %; Neutrophils # (A) 5.5 k/uL (1.3-7.7); Neutrophils % (A) 67 %; Platelet Count 155 k/uL (150-450); RDW 13.5 % (11.5-15.5); WBC 8.2 k/uL (3.8-10.6)
--- NOTE | 2024-01-03 23:17 | XR ---
EXAMINATION TYPE: XR Hip Complete LT DATE OF EXAM: 01/03/2024 CLINICAL HISTORY: Fall injury TECHNIQUE: AP and frogleg views of the left hip are obtained. COMPARISON: CT abdomen and pelvis February 20, 2023 FINDINGS: There is no acute displaced fracture in the left hip clearly seen. Moderate axial joint sp marisel loss and left hip is redemonstrated. Overlying soft tissue is unremarkable IMPRESSION: There is no acute displaced fracture clearly seen in the left hip.
[2024-01-03 23:22] LABS: ALT 20 U/L (4-49); African American GFR (CKD) 85 (>60 ml/min/1.73 sqM); Anion Gap 4 mmol/L; Blood Urea Nitrogen 25 mg/dL (9-20); Calcium 9.1 mg/dL (8.4-10.2); Carbon Dioxide 27 mmol/L (22-30); Chloride 106 mmol/L (98-107); Glucose 98 mg/dL (74-99); Non-African American GFR(CKD) 74 (>60 ml/min/1.73 sqM); Sodium 137 mmol/L (137-145); Total Bilirubin 0.9 mg/dL (0.2-1.3)
[2024-01-03 23:24] LABS: AST 22 U/L (17-59); Albumin 3.7 g/dL (3.5-5.0); Alkaline Phosphatase 49 U/L (38-126); Potassium 5.1 mmol/L (3.5-5.1); Total Protein 6.6 g/dL (6.3-8.2)
[2024-01-03 23:51] LABS: Partial Thromboplastin Time 21.5 sec (22.0-30.0)
--- NOTE | 2024-01-04 01:19 | CT ---
EXAMINATION TYPE: CT hip LT wo con DATE OF EXAM: 01/04/2024 COMPARISON: CT abdomen and pelvis February 20, 2023. Left hip x-ray one day earlier HISTORY: fall injury. R/O FX CT DLP: 1194.9 mGycm Automated exposure control for dose reduction was used. FINDINGS: Seen better on CT versus plain films there is slight cortical disruption and linear lucency along the superior aspect of the left femoral neck consistent with nondisplaced acute fracture at this level. No hip joint dislocation. No additional acute displaced fracture in the visualized portion of the lef t pelvis. Moderate axial joint space loss redemonstrated. No groin hernia or adenopathy is seen. No f ree fluid in the pelvis is noted. Partial visualization of enlarged prostate gland is incidentally no sarkis. IMPRESSION: CONFIRMATION OF ACUTE NONDISPLACED FRACTURE THROUGH THE SUBCAPITAL LEVEL OF THE LEFT HIP.
[2024-01-04] MEDS ORDERED: MAG HYDROX/AL HYDROX/SIMETH 30 ML CUP PO PRN (03:13)
[2024-01-04 06:24] LABS: Amorphous Sediment,Urine Moderate /hpf; Appearance,Urine Turbid (Clear); Bilirubin,Urine Negative (Negative); Blood,Urine Negative (Negative); Color,Urine Colorless; Glucose,Urine (UA) Negative (Negative); Ketones,Urine Negative (Negative); Leukocyte Esterase,Urine Negative (Negative); Nitrite,Urine Negative (Negative); PH, Urine 7.5 (5.0-8.0); Protein,Urine Negative (Negative); Specific Gravity,Urine 1.016 (1.001-1.035); Squamous Epithelial Cell,Urine 1 /hpf (0-4); Urobilinogen,Urine <2.0 mg/dL (<2.0); WBC,Urine 1 /hpf (0-5)
[2024-01-04] MEDS: FAMOTIDINE 20 MG TAB PO SCH (08:21)
--- NOTE | 2024-01-04 09:35 | P.HPOR ---
History of Present Illness H&P Date: 01/04/24 Chief Complaint: Left hip pain Patient is a 68-year-old male who resides in nursing facility due to significant cognitive chronic changes and history of encephalopathy and vascular dementia, who presented to the ER from the nursing facility due to his left hip pain reportedly stemming from a fall 2 days ago at the nursing facility. Patient is a very limited historian but is alert and will attempt to follow some simple commands. He is very hard of hearing but can understand and read and answer simple questions that are written for him. While he is in bed he denies any specific pain or new change. When he tries to move he localizes pain over his hips particularly to the left side. His history is very difficult to obtain from him but he is cooperative and tries to follow simple commands and answer simple questions. I am unable to determine his baseline level of activity. I discussed with the nurse as well and we are not sure if he normally walks on his own, or how much she does his own self-care in general. Per the ER he had reports of a fall 2 days ago and has been having decreased mobility since then and localizing pain toward his left hip. He had evaluation and was found to have an impacted subcapital fracture at the left femoral neck. Review of Systems As per HPI. He localizes pain to the left hip in particular when we try to move. He denies other pains currently. He is a very poor historian. Past Medical History Past Medical History: Unable to Obtain, COPD, CVA/TIA, Dementia, Hearing Disorder / Deafness, Hyperlipidemia, Hypertension, Prostate Disorder Additional Past Medical History / Comment(s): AMS changes/ischemic encephalopathy/vascular dementia/CPD/ASHD/presbycusis. He had a LP performed and was transferred to [facility]. 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 [facility] states they were also told uncontrolled HTN/hydrocephalus/advance dementia/uti. Other hx: 2012 CVA without residual, [place] bilaterally/speak in R ear, occasional urinary incontine nce/frequency, CKD, nephrolithiasis, BPH, occasional back pain. History of Any Multi-Drug Resistant Organisms: None Reported Past Surgical History: Appendectomy Additional Past Surgical History / Comment(s): colonoscopy, urology surgery Past Anesthesia/Blood Transfusion Reactions: No Reported Reaction Past Psychological History: Anxiety, Depression Smoking Status: Former smoker Past Alcohol Use History: None Reported Past Drug Use History: None Reported - Past Family History Mother Family Medical History: Dementia, Hypertension Father Family Medical History: Cancer Additional Family Medical History / Comment(s): Lung cancer. Father was a smoker. Medications and Allergies Home Medications Medication Instructions Recorded Confirmed Type Atorvastatin [Lipitor] 10 mg PO HS 04/14/20 02/20/23 History Folic Acid 0.4 mg PO DAILY 04/14/20 02/20/23 History Thiamine HCl [Vitamin B-1] 100 mg PO DAILY 04/14/20 02/20/23 History amLODIPine [Norvasc] 10 mg PO DAILY 04/14/20 02/20/23 History Acetaminophen Tab [Tylenol] 650 mg PO Q8H PRN 06/14/20 02/20/23 History QUEtiapine [SEROquel] 100 mg PO TID@0900,1300,2100 02/20/23 02/20/23 History Sertraline [Zoloft] 25 mg PO DAILY 02/20/23 02/20/23 History Docusate [Colace] 100 mg PO BID #60 capsule 02/21/23 Rx Doxycycline Monohydrate 100 mg PO BID 14 Days #28 cap 02/21/23 Rx HYDROcodone/APAP 5-325MG [[place] 1 tab PO Q6HR PRN 7 Days #28 tab 02/21/23 Rx 5-325] Omeprazole 40 mg PO DAILY 30 Days #30 cap 02/21/23 Rx Aspirin 81 mg PO BID tab 02/25/23 Rx Ipratropium-Albuterol Nebulize 3 ml INHALATION RT-QID each 02/25/23 Rx [Duoneb 0.5 mg-3 mg/3 ml Soln] Sennosides-Docusate Sodium 2 each PO HS tab 02/25/23 Rx [Senokot-S] Tamsulosin [Flomax] 0.4 mg PO DAILY 7 Days #7 cap 02/25/23 Rx Allergies Allergy/AdvReac Type Severity Reaction Status Date / Time No Known Allergies Allergy Verified 03/08/23 07:50 Physical Examination Osteopathic Statement: *. No significant issues noted on an osteopathic structural exam other than those noted in the History and Physical/Consult. - Hip left Gait: other (We are not able to move him out of bed) Tenderness with palpation: anterior, lateral (He has tenderness to palpation around his left hip. His thighs and calf soft.) Pain with motion: internal rotation and hip flexion (He has pain with any motion around his left hip. His knee is nontender his ankle and foot are nontender. His calf is soft. He is unable to move his left leg on his own.) Results - Labs Labs: Abnormal Lab Results - Last 24 Hours (Table) 01/03/24 01/03/24 01/04/24 Range/Units 22:50 22:50 05:30 APTT 21.5 L (22.0-30.0) sec BUN 25 H (9-20) mg/dL Amorphous Sediment Moderate H (None) /hpf H & H 01/03/24 Range/Units 22:50 Hgb 15.4 (13.0-17.5) gm/dL Hct 48.7 (39.0-53.0) % Coagulation 01/03/24 Range/Units 22:50 INR 1.0 (<1.2) Result Diagrams: 01/03/24 22:50 01/03/24 22:50 - Diagnostic results Hip x-ray: report reviewed, image reviewed Hip CT: report reviewed, image reviewed (X-rays and CT of his left hip are reviewed. There is an prior right hip hemiarthroplasty from February 2023. His CT is also reviewed. He has a impacted subcapital left femoral neck fracture) Assessment and Plan Assessment: Acute left hip subcapital femoral neck fracture status post fall History of dementia and encephalopathy, residing in a nursing facility chronically History of right hip fracture status post hemiarthroplasty from February 2023 Severe hard of hearing Plan: Acute left hip subcapital femoral neck fracture status post fall History of dementia and encephalopathy, residing in a nursing facility chronically History of right hip fracture status post hemiarthroplasty from February 2023 Severe hard of hearing The patient has a new left hip femoral neck impacted fracture. He has significant history with encephalopathy but is alert and responding adequately on visit. He is not providing much history but his imaging shows left hip fracture and he localizes pain to that area. He did have a new fall just a couple of days ago and I think this is representing an acute fracture. I think that the patient can do well with surgical intervention in the form of left hip hemiarthroplasty. I tried to discuss that with him today. He has been through this process just last year for the other right hip. We will have medical management and appropriate clearance for him. He has gotten preoperative labs. He is not on any blood thinners at this point. I think that we can plan on surgical intervention for the right hip tomorrow. Will make him n.p.o. and schedule for right hip hemiarthroplasty. I tried discussed the risk complications alternatives with him. It is difficult to determine how much she can understand. Will obtain appropriate consent.
--- NOTE | 2024-01-04 13:20 | P.CONS ---
History of Present Illness - Reason for Consult Consult date: 01/04/24 Medical management - History of Present Illness History of present illness; patient is 68-year-old gentleman with past medical history significant for hypertension, hyperlipidemia who is currently resident of skilled nursing brought to the ER after a fall. Patient has been having left hip pain for the last 2 days after having a fall couple days ago. Patient denies any chest pain or shortness of breath. There is no complaint of orthopnea or PND. There is no complaint of loss of consciousness. There is no complaint of nausea, vomiting abdominal pain. Initial lab work done in the ER showed WBC 8.2, hemoglobin 15.4, platelet count 155, sodium 137, potassium 5.1, BUN 29, creatinine 1.03, UA negative for any infection EKG done in the ER showed heart rate of 77, no ST segment elevation or depression seen, no T-wave inversions seen. X-ray left hip done showed no acute displaced fracture CT left hip done showed acute nondisplaced fracture throughout the subcapital level of left hip Patient admitted to orthopedic service REVIEW OF SYSTEMS: CONSTITUTIONAL: No fever, no malaise, no fatigue. HEENT: No recent visual problems or hearing problems. Denied any sore throat. CARDIOVASCULAR: No chest pain, orthopnea, PND, no palpitations, no syncope. PULMONARY: No shortness of breath, no cough, no hemoptysis. GASTROINTESTINAL: No diarrhea, no nausea, no vomiting, no abdominal pain. NEUROLOGICAL: No headaches, no weakness, no numbness. HEMATOLOGICAL: Denies any bleeding or petechiae. GENITOURINARY: Denies any burning micturition, frequency, or urgency. MUSCULOSKELETAL/RHEUMATOLOGICAL: As mentioned above ENDOCRINE: Denies any polyuria or polydipsia. The rest of the 14-point review of systems is negative. PHYSICAL EXAMINATION: GENERAL: The patient is alert and oriented x3, not in any acute distress. Ill looking HEENT: Pupils are round and equally reacting to light. EOMI. No scleral icterus. Bilateral hearing grossly reduced CARDIOVASCULAR: S1 and S2 present. No murmurs, rubs, or gallops. PULMONARY: Chest is clear to auscultation, no wheezing or crackles. ABDOMEN: Soft, nontender, nondistended, normoactive bowel sounds. No palpable organomegaly. MUSCULOSKELETAL: No joint swelling or deformity. Left hip tenderness EXTREMITIES: No cyanosis, clubbing, or pedal edema. NEUROLOGICAL: Gross neurological examination did not reveal any focal deficits. SKIN: No rashes. Assessment and plan Fall Left hip fracture Hypertension Hyperlipidemia BPH Monitor vital signs Monitor CBC Monitor CMP Continue pain management per orthopedics Continue DVT prophylaxis per orthopedics Resume home meds, hold off blood pressure medication at this time as patient is normotensive PT and OT consulted Patient is medically stable to undergo surgical intervention with moderate risk of complications Labs and medication were reviewed.. Continue same treatment. Continue with symptomatic treatment. Resume home medication. Monitor labs and vitals. DVT and GI prophylaxis. Further recommendations as per clinical course of the patient Dictation was produced using [employer] dictation software. please excuse any grammatical, word or spelling errors. Past Medical History Past Medical History: Unable to Obtain, COPD, CVA/TIA, Dementia, Hearing Disorder / Deafness, Hyperlipidemia, Hypertension, Prostate Disorder Additional Past Medical History / Comment(s): AMS changes/ischemic encephalopathy/vascular dementia/CPD/ASHD/presbycusis. He had a LP performed and was transferred to [facility]. Discharge diagnosis from [facility] list: severe generali zed intracranial leukoencephalopathy/cerebral ventriculomegaly/cerebral atrophy/neurogenic dysphagia/UTI/urinary retention/constipation/suspected dysautonomally, acute encephalopathy. [facility] states they were also told uncontrolled HTN/hydrocephalus/advance dementia/uti. Other hx: 2013 CVA without residual, [place] bilaterally/speak in R ear, occasional urinary incontinence/frequency, CKD, nephrolithiasis, BPH, occasional back pain. History of Any Multi-Drug Resistant Organisms: None Reported Past Surgical History: Appendectomy Additional Past Surgical History / Comment(s): colonoscopy, urology surgery Past Anesthesia/Blood Transfusion Reactions: No Reported Reaction Past Psychological History: Anxiety, Depression Smoking Status: Former smoker Past Alcohol Use History: None Reported Past Drug Use History: None Reported - Past Family History Mother Family Medical History: Dementia, Hypertension Father Family Medical History: Cancer Additional Family Medical History / Comment(s): Lung cancer. Father was a smoker. Medications and Allergies Home Medications Medication Instructions Recorded Confirmed Type Atorvastatin [Lipitor] 10 mg PO HS 04/14/20 02/20/23 History Folic Acid 0.4 mg PO DAILY 04/14/20 02/20/23 History Thiamine HCl [Vitamin B-1] 100 mg PO DAILY 04/14/20 02/20/23 History amLODIPine [Norvasc] 10 mg PO DAILY 04/14/20 02/20/23 History Acetaminophen Tab [Tylenol] 650 mg PO Q8H PRN 06/14/20 02/20/23 History QUEtiapine [SEROquel] 100 mg PO TID@0900,1300,2100 02/20/23 02/20/23 History Sertraline [Zoloft] 25 mg PO DAILY 02/20/23 02/20/23 History Docusate [Colace] 100 mg PO BID #60 capsule 02/21/23 Rx Doxycycline Monohydrate 100 mg PO BID 14 Days #28 cap 02/21/23 Rx HYDROcodone/APAP 5-325MG [[place] 1 tab PO Q6HR PRN 7 Days #28 tab 02/21/23 Rx 5-325] Omeprazole 40 mg PO DAILY 30 Days #30 cap 02/21/23 Rx Aspirin 81 mg PO BID tab 02/25/23 Rx Ipratropium-Albuterol Nebulize 3 ml INHALATION RT-QID each 02/25/23 Rx [Duoneb 0.5 mg-3 mg/3 ml Soln] Sennosides-Docusate Sodium 2 each PO HS tab 02/25/23 Rx [Senokot-S] Tamsulosin [Flomax] 0.4 mg PO DAILY 7 Days #7 cap 02/25/23 Rx Allergies Allergy/AdvReac Type Severity Reaction Status Date / Time No Known Allergies Allergy Verified 03/08/23 07:50 Physical Exam Vitals: Vital Signs Temp Pulse Pulse Resp BP BP Pulse Ox 01/04/24 08:00 98.6 F 79 16 110/67 93 L 01/04/24 04:10 97.9 F 82 20 137/88 93 L 01/04/24 02:55 76 18 139/80 94 L 01/04/24 01:53 82 18 139/80 95 01/03/24 22:21 98.9 F 79 16 138/87 97 Intake and Output 01/03/24 01/04/24 01/04/24 22:59 06:59 14:59 Output Total 700 Balance -700 Output: Urine 700 Other: Voiding Method External Catheter # Bowel Movements 1 Weight 114.759 kg 114.759 kg Results CBC & Chem 7: 01/03/24 22:50 01/03/24 22:50 Labs: Abnormal Lab Results - Last 24 Hours (Table) 01/03/24 01/03/24 01/04/24 Range/Units 22:50 22:50 05:30 APTT 21.5 L (22.0-30.0) sec BUN 25 H (9-20) mg/dL Amorphous Sediment Moderate H (None) /hpf
[2024-01-04] MEDS: MORPHINE SULFATE 4 MG/ML SYRINGE IV PRN (14:33)
[2024-01-04] MEDS: SODIUM CHLORIDE 0.9% 1,000 ML IV SCH (20:51)
[2024-01-04] MEDS: HYDROcodone/APAP 5-325MG 1 EACH TAB PO PRN (21:24)
--- NOTE | 2024-01-05 13:12 | P.PN ---
Subjective Progress Note Date: 01/05/24 patient is 68-year-old gentleman with past medical history significant for hypertension, hyperlipidemia who is currently resident of retirement brought to the ER after a fall. Patient has been having left hip pain for the last 2 days after having a fall couple days ago. Patient denies any chest pain or shortness of breath. There is no complaint of orthopnea or PND. There is no complaint of loss of consciousness. There is no complaint of nausea, vomiting abdominal pain. Initial lab work done in the ER showed WBC 8.2, hemoglobin 15.4, platelet count 155, sodium 137, potassium 5.1, BUN 29, creatinine 1.03, UA negative for any infection EKG done in the ER showed heart rate of 77, no ST segment elevation or depression seen, no T-wave inversions seen. X-ray left hip done showed no acute displaced fracture CT left hip done showed acute nondisplaced fracture throughout the subcapital level of left hip Patient admitted to orthopedic service 01/04. Patient seen and examined. Currently n.p.o., going for procedure today. Complaining of left hip pain REVIEW OF SYSTEMS: CONSTITUTIONAL: No fever, no malaise,. CARDIOVASCULAR: No chest pain, no palpitations, no syncope. PULMONARY: No shortness of breath, no cough, GASTROINTESTINAL: No diarrhea, no nausea, no vomiting, no abdominal pain. NEUROLOGICAL: No headaches, no weakness, PHYSICAL EXAMINATION: GENERAL: The patient is alert and oriented x3, not in any acute distress. Ill looking HEENT: Pupils are round and equally reacting to light. EOMI. No scleral icterus. Bilateral hearing grossly reduced CARDIOVASCULAR: S1 and S2 present. No murmurs, rubs, or gallops. PULMONARY: Chest is clear to auscultation, no wheezing or crackles. ABDOMEN: Soft, nontender, nondistended, normoactive bowel sounds. No palpable organomegaly. MUSCULOSKELETAL: No joint swelling or deformity. Left hip tenderness EXTREMITIES: No cyanosis, clubbing, or pedal edema. NEUROLOGICAL: Gross neurological examination did not reveal any focal deficits. SKIN: No rashes. Assessment and plan Fall Left hip fracture Hypertension Hyperlipidemia BPH Monitor vital signs Monitor CBC Monitor CMP Continue pain management per orthopedics Continue DVT prophylaxis per orthopedics Resume home meds, hold off blood pressure medication at this time as patient is normotensive PT and OT consulted, will see patient after surgery Patient is medically stable to undergo surgical intervention with moderate risk of complications Orthopedic following, planning surgery today, right hip hemiarthroplasty today Labs and medication were reviewed.. Continue same treatment. Continue with symptomatic treatment. Resume home medication. Monitor labs and vitals. DVT and GI prophylaxis. Further recommendations as per clinical course of the patient Dictation was produced using [employer] dictation software. please excuse any grammatical, word or spelling errors. Objective - Vital Signs Vital signs: Vital Signs Temp 98.2 F 01/05/24 07:46 Pulse 71 01/05/24 07:46 Resp 17 01/05/24 07:46 BP 161/83 01/05/24 07:46 Pulse Ox 95 01/05/24 07:46 FiO2 Intake & Output 01/04/24 01/05/24 01/05/24 18:59 06:59 18:59 Output Total 1600 800 Balance -1600 -800 Output: Urine 1600 800 Other: Voiding Method External Catheter Diaper Incontinent # Voids 1 # Bowel Movements 1 - Labs CBC & Chem 7: 01/03/24 22:50 01/03/24 22:50
[2024-01-05] MEDS: IV FLUID CONTINUATION 1,000 ML IV ONE (18:05)
[2024-01-05] MEDS: DEXAMETHASONE SOD PHOSPHATE 4 MG/ML 1 ML VIAL IVP STA (18:27)
[2024-01-05] MEDS: ONDANSETRON 4 MG/2 ML VIAL IVP PRN (18:27)
[2024-01-05] MEDS ORDERED: fentaNYL (PF) 50 MCG/ML 2 ML AMP ONE (18:44)
[2024-01-05] MEDS ORDERED: SUCCINYLCHOLINE CHLORIDE 200 MG/10 ML VIAL IV ONE (18:44)
[2024-01-05] MEDS ORDERED: PROPOFOL 10 MG/ML 20 ML VIAL IV ONE (18:44)
[2024-01-05] MEDS ORDERED: NEOSTIGMINE 1 MG/ML 10 ML VIAL ONE (18:44)
[2024-01-05] MEDS ORDERED: ROCURONIUM 10 MG/ML (5 ML VIAL) IV ONE (18:44)
[2024-01-05] MEDS ORDERED: TRANEXAMIC 1,000 MG/100ML-NACL PREMIX BAG ONE (18:44)
[2024-01-05] MEDS ORDERED: GLYCOPYRROLATE 0.2 MG/ML 2 ML VIAL ONE (18:44)
[2024-01-05] MEDS: ROPIVACAINE 5 MG/ML 30 ML VIAL MISCELLANE ONE (19:22)
[2024-01-05] MEDS: LACTATED RINGERS 1,000 ML IV ONE (20:46)
--- NOTE | 2024-01-05 21:05 | XR ---
Fluoroscopic spot films and fluoroscopy. HISTORY: Placement of a left hip prosthesis. TECHNIQUE: 5 fluoroscopic spot films in 29.1 seconds of fluoroscopic scapular view was provided for t he placement of a left hip prosthesis. FINDINGS: There is near anatomic alignment of the left hip prosthesis. IMPRESSION: Successful placement of a left hip prosthesis.
[2024-01-05] MEDS ORDERED: NALOXONE 0.4 MG/ML 1 ML VIAL IV PRN (21:09)
[2024-01-05] MEDS ORDERED: MAGNESIUM HYDROXIDE 2,400 MG/30 ML CUP PO PRN (21:09)
--- NOTE | 2024-01-05 21:09 | P.OP ---
Date of Procedure: 01/05/24 Preoperative Diagnosis: left femoral neck fracture Postoperative Diagnosis: same Procedure(s) Performed: left direct anterior hip hemiarthroplasty Implants: Aidan accolade C size #5 127, bipolar head 56 mm outer diameter, 28 mm inner diameter +0 neck Anesthesia: JOANNA Surgeon: Alonso Roy Biometrician #1: Robin Avelar Estimated Blood Loss (ml): 500 IV fluids (ml): 1,000 Pathology: none sent Condition: stable Disposition: PACU Indications for Procedure: I met with the patient and their family to discuss treatment options. The patient has a displaced femoral neck fracture and based on their age, activity level, and medical comorbidities I recommended a hip hemiarthroplasty to facilitate early mobilization. My recommendation was to perform the hemiarthroplasty through a direct anterior approach to help lower the risk of dislocation and improve postoperative recovery and use cemented fixation of the femoral component to reduce the risk of fracture and postoperative thigh pain. We discussed the potential risks and complications of a hemiarthroplasty for displaced femoral neck fracture at length. Risks discussed include are certainly not limited to risks from anesthesia, superficial infection requiring local wound care and possibly surgical debridement, deep periprosthetic joint infection and the treatment for this, damage to local blood vessels or nerves particularly the lateral femoral cutaneous nerve, intraoperative fracture, postoperative periprosthetic fracture, leg length discrepancy, hip dislocation, aseptic loosening, groin pain, thigh pain, progression of arthritis requiring conversion to total hip arthroplasty, complications related to cementing the component, an inability to regain preinjury level of function, DVT, PE, acute coronary event, stroke, pneumonia, urinary tract infection, failure to thrive, and possibly . The patient and their family understand that while these are the most common complications other less common complications are possible. They provided their verbal and written consent to go forward with surgery. Operative Findings: large hemarthrosis consistent with an acute femoral neck fracture. There was a partially displaced subcapital femoral neck fracture. Description of Procedure: The patient was identified in the preoperative holding area and the correct hip was marked with my initials. I reviewed the procedure and consent with the patient. All of their questions were answered. The patient was then brought back into the operating room by anesthesia. While on the [facility] anesthesia was administered by the anesthesia team. Preoperative antibiotics and tranexamic acid were also given. After the patient was under anesthesia I examined their ankles to determine their preoperative leg length discrepancy. The skin over the anterior aspect of the hip was shaved to remove hair over the site of planned incision. Both feet and ankles were padded with webril and boots for the [place] were applied. The patient was then carefully transferred onto the [place] table. A perineal post was immediately placed. The arms were placed on arm holders and were well-padded. Both boots were secured to the spars on the [place] table. The patient was positioned so that the pelvis was centered over the post. Nonsterile drapes were applied. A timeout was performed identifying the correct patient, operative extremity, and procedure. At this point fluoroscopy was brought in to take preoperative images of the pelvis and operative hip. A metallic bar was used to create a bi-ischial line for use as a reference to leg length adjustments during the procedure. Global offset was also measured on both the operative and nonoperative leg. Fluoroscopy was then brought out and a pre-scrub using a chlorhexidine scrub brush was performed. The operative limb was then prepped and draped in the standard sterile fashion. An anterior longitudinal incision was made lateral and distal to the ASIS. The skin and subcutaneous tissues were incised sharply. The underlying tensor fascia was identified and incised in its midportion. The fascia was dissected free from the underlying muscle and the muscle belly was retracted. A blunt tipped cobra retractor was placed over the superior neck under the muscle fibers of the gluteus minimus. The deep enveloping fascia of the tensor was incised. The anterior leash of vessels were then identified and cauterized. The fascia between the rectus and the capsule was then incised and the pre-capsular fat was excised. A second Cobra was placed inferior to the neck. The interval between the rectus and iliocapsularis and the hip capsule was developed and a retractor was placed carefully over the anterior rim of the acetabulum. A T-shaped anterior capsulotomy was performed. A hemarthrosis consistent with a femoral neck fracture was identified. The superior capsular leaflet was left in place in the inferior capsular flap was excised. The Cobra retractors were placed intracapsularly. A displaced femoral neck fracture was then identified. We then made a femoral neck osteotomy according to preoperative and intraoperative templating and confirmed the level of the osteotomy using fluoroscopic imaging. The femoral head was removed, passed off to the back table, and sized. The superior capsular flap was excised. On inspection of the acetabulum there were minimal degenerative changes with intact cartilage. Attention was then turned to the femur. The remnant dorsal lateral capsule was excised. The short external rotators were visible and protected. A bone hook was used to confirm appropriate translation of the trochanter away from the acetabulum. The leg was then extended and adducted and the bone hook was used to elevate the femur for broaching. A box osteotome and blunt tipped canal sound was then utilized to gain access to the femoral canal. We then sequentially broached the femur in appropriate anteversion until torsional stability was achieved and the implant was felt to have reached the appropriate size to allow trialing. The neck cut was brought flush to the trial broach with a calcar planar. A trial neck and head were then placed onto the broach and the hip was atraumatically reduced under direct visualization. External rotation to 90 was performed to assess stability. Fluoroscopy was brought in. An AP and lateral fluoroscopic image of the proximal femur was obtained to assess position and fill of the trial broach. An AP of the pelvis was then obtained and matched to the preoperative image taken. A bi-ischial bar was then placed and measurements were taken to assess changes in length and offset. The hip was then carefully dislocated, the proximal femur was exposed, and the trial implants were removed. The proximal femur was then prepared for cementing. The canal was thoroughly irrigated with pulsatile lavage to remove blood and marrow contents. A cement restrictor was placed to a depth just distal to the tip of the final implant. Epinephrine-soaked gauze was then packed into the proximal femur. 2 bags of cement with antibiotics were then mixed using a centrifuge and placed into a cement gun. Anesthesia was notified that cementing was about to commence to make sure the patient was appropriately ventilated and hydrated. Once the cement had reached appropriate consistency, the cement gun was used to fill the canal in a retrograde fashion starting at the restrictor. Cement was then pressurized into the canal with a blue tipped division merchandise manager. The stem was then carefully introduced into the cement taking care to guide the implant into appropriate version. The stem was held in position until the cement had fully set. All extra cement was removed while the cement was hardening. The trunnion was cleansed and the final head was tapped into place to engage the [place] taper. The acetabulum was irrigated and visualized to be free of debris. The hip was carefully reduced. Stability was checked clinically with external rotation to 90 and there was no evidence of instability. Final fluoroscopic images were taken. The wound was then thoroughly irrigated with Irrisept. 3 L of sterile saline was irrigated through the wound using pulsatile lavage. Local anesthetic cocktail was injected into the soft tissues around the surgical field. The wound was then closed in layers. A sterile dressing was placed over the surgical incision. The drapes were taken down and the patient was carefully transferred off of the [place] table. Following removal of the boots the leg lengths felt acceptable. The patient was then taken to recovery room having tolerated the procedure well. Robin Avelar PA-C required as a skilled oral surgery assistant due to the complexity of surgery for patient positioning, draping, exposure, retraction, closure of wound, and application of dressing PLAN: The patient can weight-bear as tolerated on the operative extremity. 2 doses of postoperative antibiotics. DVT prophylaxis with aspirin 81 mg twice a day based on preoperative risk stratification. Physical therapy for gait training.
[2024-01-05] MEDS: SODIUM CHLORIDE 0.9% 1,000 ML IV SCH (21:53)
[2024-01-05] MEDS: HYDROmorphone 0.5 MG/0.5 ML SYRINGE IVP PRN (22:06)
[2024-01-05 22:54] LABS: Basophils % (A) 0 %; Eosinophils # (A) 0.1 k/uL (0-0.7); Eosinophils % (A) 1 %; HCT 47.6 % (39.0-53.0); HGB 14.8 gm/dL (13.0-17.5); Lymphocytes # (A) 0.6 k/uL (1.0-4.8); Lymphocytes % (A) 4 %; MCH 31.7 pg (25.0-35.0); MCHC 31.1 g/dL (31.0-37.0); MCV 101.8 fL (80.0-100.0); Macrocytosis Slight; Mean Platelet Volume 7.3; Monocytes # (A) 0.4 k/uL (0-1.0); Monocytes % (A) 3 %; Neutrophils # (A) 12.3 k/uL (1.3-7.7); Neutrophils % (A) 91 %; Platelet Count 143 k/uL (150-450); RBC 4.67 m/uL (4.30-5.90); RDW 13.3 % (11.5-15.5); WBC 13.5 k/uL (3.8-10.6)
[2024-01-05 23:34] LABS: Glucose,Whole Blood 139 mg/dL (70-110)
[2024-01-05] MEDS: NALOXONE 0.4 MG/ML 1 ML VIAL IV PRN (23:39)
[2024-01-05 23:40] LABS: Allen Test Performed? Yes
[2024-01-05 23:41] LABS: ABG Base Excess -14.8 mmol/L; ABG HCO3 14 mmol/L (21-25); ABG PCO2 44 mmHg (35-45); ABG PO2 167 mmHg (83-108); ABG TCO2 16 mmol/L (19-24)
[2024-01-06 00:06] LABS: Glucose,Whole Blood 170 mg/dL (70-110)
[2024-01-06 00:30] LABS: ABG Base Excess -8.5 mmol/L; ABG HCO3 18 mmol/L (21-25); ABG Oxygen Saturation 96.8 % (94-97); ABG PCO2 37 mmHg (35-45); ABG PH 7.28 (7.35-7.45); ABG PO2 90 mmHg (83-108); ABG TCO2 19 mmol/L (19-24); Allen Test Performed? Yes
[2024-01-06 01:02] LABS: ABG PH 7.12 (7.35-7.45)
[2024-01-06] MEDS: SODIUM CHLORIDE 0.9% 1,000 ML IV ONE (01:19)
--- NOTE | 2024-01-06 01:22 | XR ---
EXAMINATION TYPE: XR chest 1V portable DATE OF EXAM: 01/06/2024 CLINICAL HISTORY: Acute hypoxemic respiratory failure TECHNIQUE: Single AP portable frontal upright view of the chest is obtained. COMPARISON: Chest x-ray February 22, 2023 FINDINGS: There is mild bilateral interstitial prominence. There is no focal air space opacity, pleu ral effusion, or pneumothorax seen. The cardiac silhouette size is mildly enlarged. The osseous st ructures are intact. IMPRESSION: Mild cardiomegaly with mild bilateral interstitial edema. Correlate for CHF exacerbation/ fluid overload state.
[2024-01-06 01:42] LABS: Appearance,Urine Clear (Clear); Bilirubin,Urine Negative (Negative); Blood,Urine Moderate (Negative); Color,Urine Light Yellow; Glucose,Urine (UA) 3+ (Negative); Hyaline Casts,Urine 5 /lpf (0-2); Leukocyte Esterase,Urine Small (Negative); Mucus,Urine Rare /hpf; Nitrite,Urine Negative (Negative); Protein,Urine Trace (Negative); RBC,Urine 51 /hpf (0-5); Specific Gravity,Urine 1.022 (1.001-1.035); Urobilinogen,Urine <2.0 mg/dL (<2.0); WBC,Urine 17 /hpf (0-5)
[2024-01-06 01:57] LABS: Ketones,Urine 2+ (Negative)
[2024-01-06 02:15] LABS: ALT 21 U/L (4-49); AST 29 U/L (17-59); African American GFR (CKD) 73 (>60 ml/min/1.73 sqM); Albumin 3.7 g/dL (3.5-5.0); Alkaline Phosphatase 66 U/L (38-126); Anion Gap 18 mmol/L; Blood Urea Nitrogen 23 mg/dL (9-20); Calcium 8.7 mg/dL (8.4-10.2); Carbon Dioxide 10 mmol/L (22-30); Chloride 109 mmol/L (98-107); Glucose 184 mg/dL (74-99); Non-African American GFR(CKD) 63 (>60 ml/min/1.73 sqM); Potassium 4.8 mmol/L (3.5-5.1); Sodium 137 mmol/L (137-145); Total Bilirubin 0.9 mg/dL (0.2-1.3); Total Protein 6.4 g/dL (6.3-8.2)
[2024-01-06] MEDS ORDERED: DEXTROSE 50% SYRINGE 50 ML IVP PRN ×2 (02:23)
--- NOTE | 2024-01-06 02:37 | P.CNPUL ---
History of Present Illness Consult date: 01/06/24 Requesting physician: Gee Lester Reason for consult: other (ICU management) Chief complaint: Fall; hip fracture History of present illness: Patient is 68-year-old white male with past medical history significant for chronic confusion/advanced dementia, frequent falls, previous displaced right subcapital femoral neck fracture and anterior hip hemiarthroplasty. Also, has past medical history of COPD, CVA/TIA, hyperlipidemia, hypertension, diabetes mellitus, and prostate disorder. Patient presented to our emergency department on January 02 from a group home after falling 2 days prior and having left hip pain. CT of the left hip demonstrated acute nondisplaced fracture through the subcapital level of the left hip. Patient did go undergo left direct anterior hip hemiarthroplasty yesterday evening on 01/05/2024. No intraoperative complications were reported. Patient was initially transferred to the medical surgical unit for recovery. He was found to be minimally responsive, and in A team was called overhead. Did receive a dose of Dilaudid earlier, and responded favorably to Narcan IV push. He did reportedly briefly have some nonpurposeful movements, but no obvious seizure-like activity. Patient also had a ABG consistent with profound metabolic acidosis. With a PO2 of 167, pCO2 of 44, pH of 7.12. I recommended that the patient be worked up in the intensive care unit . On my evaluation, he is alert but it is very difficult to communicate. Patient is hard of hearing and I am told he has some baseline dementia. He can only communicate with written messages. Not particularly in any distress. Left hip incision site appears approximated without any obvious bleeding. On review of patient's medical record, he had a similar presentation approximately 1 year ago following a right femoral neck fracture and hemiarthroplasty. He was worked up by our inpatient neurology group, thought to have an isolated episode of seizure-like activity. Patient is currently not on any antiepileptic medications. He currently does not have any seizure-like activity. Neurologi sebastian exam is nonfocal. No muscle rigidity. Reportedly received combination of rocuronium, propofol and fentanyl in the operating room. More labs are back. CBC: WBC count 13.5, hemoglobin 14.8, hematocrit 47.6, platelets 143. CMP: Sodium 137, potassium 4.8, chloride 109, serum bicarb 10, BUN 23, creatinine 1.17, glucose 184. Normal saline is infusing at 100 MLS per hour. Lactic acid level was elevated at 6.7. No recent doses of metformin since hospital admission. creatinine kinase 293. There is a indwelling urinary catheter with concentrated urine. Urinalysis reportedly positive for ketones and glucose. Consider euglycemic DKA. He was given a liter of normal saline bolus. No fevers. Tachycardic on bedside monitor, 112 bpm. Blood pressure is 148/98 mmHg. He is on 4 L/min nasal cannula. SpO2 95%. No respiratory distress. No tachypnea. Repeat ABG shows significant improvement in his metabolic acidosis. Seems to be clinically improving back to baseline. Review of Systems ROS unobtainable: due to mental status Past Medical History Past Medical History: Unable to Obtain, COPD, CVA/TIA, Dementia, Hearing Disorder / Deafness, Hyperlipidemia, Hypertension, Prostate Disorder Additional Past Medical History / Comment(s): AMS changes/ischemic encephalopathy/vascular dementia/CPD/ASHD/presbycusis. He had a LP performed and was transferred to [facility]. Discharge diagnosis from [facility] list: severe generalized intracranial leukoencephalopathy/cerebral ventriculomegaly/cerebral atrophy/neurogenic dysphagia/UTI/urinary retention/constipation/suspected dysautonomally, acute encephalopathy. [facility] states they were also told uncontrolled HTN/hydrocephalus/advance dementia/uti. Other hx: 2013 CVA without residual, [place] bilaterally/speak in R ear, occasional urinary incontinenc e/frequency, CKD, nephrolithiasis, BPH, occasional back pain. History of Any Multi-Drug Resistant Organisms: None Reported Past Surgical History: Appendectomy Additional Past Surgical History / Comment(s): colonoscopy, urology surgery Past Anesthesia/Blood Transfusion Reactions: No Reported Reaction Past Psychological History: Anxiety, Depression Smoking Status: Former smoker Past Alcohol Use History: None Reported Past Drug Use History: None Reported - Past Family History Mother Family Medical History: Dementia, Hypertension Father Family Medical History: Cancer Additional Family Medical History / Comment(s): Lung cancer. Father was a smoker. Medications and Allergies Home Medications Medication Instructions Recorded Confirmed Type Atorvastatin [Lipitor] 10 mg PO HS 04/14/20 01/04/24 History Folic Acid 0.4 mg PO DAILY 04/14/20 01/04/24 History Thiamine HCl [Vitamin B-1] 100 mg PO DAILY 04/14/20 01/04/24 History amLODIPine [Norvasc] 10 mg PO DAILY 04/14/20 01/04/24 History Acetaminophen Tab [Tylenol] 650 mg PO Q6H PRN 06/14/20 01/04/24 History QUEtiapine [SEROquel] 100 mg PO HS 02/20/23 01/04/24 History Sertraline [Zoloft] 25 mg PO DAILY 02/20/23 01/04/24 History Docusate [Colace] 100 mg PO BID #60 capsule 02/21/23 01/04/24 Rx Aspirin 81 mg PO DAILY 01/04/24 01/04/24 History HYDROcodone/APAP 5-325MG [[place] 1 tab PO BID PRN 01/04/24 01/04/24 History 5-325] HYDROcodone/APAP 5-325MG [[place] 1 tab PO Q8H 01/04/24 01/04/24 History 5-325] Lactose-Reduced Food [Ensure Plus] 237 ml PO DAILY 01/04/24 01/04/24 History Magnesium Hydroxide [Milk of 2,400 mg PO DAILY PRN 01/04/24 01/04/24 History Magnesia] Na Phos,M-B/Na Phos,Di-Ba [[place] 133 ml RECTAL DAILY PRN 01/04/24 01/04/24 History Adult] Omeprazole [PriLOSEC] 20 mg PO DAILY 01/04/24 01/04/24 History QUEtiapine [SEROquel] 50 mg PO BID@0900,1400 01/04/24 01/04/24 History Sennosides/Docusate Sodium [[place] 2 tab PO HS 01/04/24 01/04/24 History Plus 8.6-50 mg Tablet] Sertraline HCl [Zoloft] 50 mg PO DAILY 01/04/24 01/04/24 History bisacodyL [Dulcolax] 10 mg RECTAL DAILY PRN 01/04/24 01/04/24 History metFORMIN HCL ER [Glucophage XR] 500 mg PO DAILY 01/04/24 01/04/24 History Allergies Allergy/AdvReac Type Severity Reaction Status Date / Time No Known Allergies Allergy Verified 01/05/24 18:16 Physical Exam Vitals: Vital Signs Temp Pulse Pulse Pulse Resp BP BP 01/06/24 01:00 114 H 16 148/98 01/06/24 00:50 111 H 16 148/98 01/06/24 00:41 115 H 11 L 01/06/24 00:40 112 H 23 148/98 01/06/24 00:30 112 H 9 L 148/98 01/06/24 00:20 22 148/98 01/06/24 00:10 124 H 15 148/98 01/06/24 00:05 21 01/05/24 23:48 126 H 162/82 01/05/24 23:43 126 H 144/90 01/05/24 23:39 8 L 01/05/24 23:37 123 H 161/90 01/05/24 23:33 114 H 167/88 01/05/24 23:32 114 H 179/91 01/05/24 23:19 103 H 153/83 01/05/24 23:03 103 H 148/93 01/05/24 22:49 100 156/91 01/05/24 22:33 130 H 162/90 01/05/24 22:20 98 134/103 01/05/24 22:03 101 H 120/68 01/05/24 21:58 100 20 163/90 01/05/24 21:32 97 16 143/74 01/05/24 21:17 84 16 135/69 01/05/24 21:02 97 F L 84 16 132/63 01/05/24 18:05 98.2 F 79 15 147/81 01/05/24 14:36 98.2 F 75 16 152/79 01/05/24 07:46 98.2 F 71 17 161/83 01/05/24 01:40 98.2 F 78 18 137/76 Pulse Ox 01/06/24 01:00 95 01/06/24 00:50 95 01/06/24 00:41 01/06/24 00:40 94 L 01/06/24 00:30 95 01/06/24 00:20 96 01/06/24 00:10 95 01/06/24 00:05 01/05/24 23:48 95 01/05/24 23:43 95 01/05/24 23:39 01/05/24 23:37 97 01/05/24 23:33 96 01/05/24 23:32 97 01/05/24 23:19 93 L 01/05/24 23:03 89 L 01/05/24 22:49 91 L 01/05/24 22:33 85 L 01/05/24 22:20 93 L 01/05/24 22:03 97 01/05/24 21:58 95 01/05/24 21:32 93 L 01/05/24 21:17 98 01/05/24 21:02 96 01/05/24 18:05 94 L 01/05/24 14:36 93 L 01/05/24 07:46 95 01/05/24 01:40 94 L Intake and Output 01/05/24 01/05/24 01/06/24 14:59 22:59 06:59 Intake Total 1775 100 Output Total 600 100 Balance 1175 0 Intake: IV 1775 Sodium Chloride 0.9% 1, 825 000 ml @ 75 mls/hr IV . [id number] SKINNY Rx#:[id number] Intake, IV Titration 100 Amount Sodium Chloride 0.9% 1, 100 000 ml @ 100 mls/hr IV . Q10H SKINNY Rx#:[id number] Output: Urine 100 100 Estimated Blood Loss 500 Other: Voiding Method Diaper Indwelling Catheter Indwelling Catheter Incontinent # Voids 1 GENERAL EXAM: Alert, 68-year-old white male, restless pulling at equipment, moves all 4 extremities, no seizure-like activity. HEAD: Normocephalic and atraumatic EYES: Normal reaction of pupils, equal size. NOSE: Clear with pink turbinates. THROAT: No erythema or exudates. NECK: No masses, no JVD. CHEST: No chest wall deformity. LUNGS: Equal air entry with diminished lung sounds bilaterally. No crackles, wheeze, rhonchi. On 4 L/min nasal cannula. No conversational dyspnea or accessory muscle use.. CVS: S1 and S2 normal with no audible murmur, regular rhythm. No extra heart sounds ABDOMEN: No hepatosplenomegaly, active bowel sounds, no guarding or rigidity. SPINE: No scoliosis or deformity SKIN: No rashes CENTRAL NERVOUS SYSTEM: No focal deficits, tone is normal in all 4 extremities. EXTREMITIES: There is no peripheral edema, clubbing, or cyanosis. Peripheral pulses are intact. Left hip incisional dressing is intact. No obvious bleeding or shadowing. Results - Laboratory Findings CBC and BMP: 01/06/24 05:36 01/06/24 05:36 ABG ABG pH 7.28 (7.35-7.45) L 01/06/24 00:25 ABG pCO2 37 mmHg (35-45) 01/06/24 00:25 ABG pO2 90 mmHg (83-108) 01/06/24 00:25 ABG O2 Saturation 96.8 % (94-97) 01/06/24 00:25 PT/INR, D-dimer PT 11.0 sec (10.0-12.5) 01/03/24 22:50 INR 1.0 (<1.2) 01/03/24 22:50 Abnormal lab findings: Abnormal Labs 01/03/24 01/03/24 01/04/24 22:50 22:50 05:30 WBC MCV Plt Count Neutrophils # Lymphocytes # APTT 21.5 L ABG pH ABG pO2 ABG HCO3 ABG Total CO2 ABG O2 Saturation BUN 25 H POC Glucose (mg/dL) Plasma Lactic Acid Kojo Creatine Kinase Amorphous Sediment Moderate H 01/05/24 01/05/24 01/05/24 22:44 23:33 23:39 WBC 13.5 H MCV 101.8 H Plt Count 143 L Neutrophils # 12.3 H Lymphocytes # 0.6 L APTT ABG pH 7.12 L* ABG pO2 167 H ABG HCO3 14 L ABG Total CO2 16 L ABG O2 Saturation 99.0 H BUN POC Glucose (mg/dL) 139 H Plasma Lactic Acid Kojo Creatine Kinase Amorphous Sediment 01/06/24 01/06/24 01/06/24 00:05 00:06 00:13 WBC MCV Plt Count Neutrophils # Lymphocytes # APTT ABG pH ABG pO2 ABG HCO3 ABG Total CO2 ABG O2 Saturation BUN POC Glucose (mg/dL) 170 H Plasma Lactic Acid Kojo 6.7 H* Creatine Kinase 293 H Amorphous Sediment 01/06/24 00:25 WBC MCV Plt Count Neutrophils # Lymphocytes # APTT ABG pH 7.28 L ABG pO2 ABG HCO3 18 L ABG Total CO2 ABG O2 Saturation BUN POC Glucose (mg/dL) Plasma Lactic Acid Kojo Creatine Kinase Amorphous Sediment Assessment and Plan Assessment: Left femoral neck fracture status post left direct anterior hip hemiarthroplasty done on 01/05/2024 Fall Worsening altered mental status, possibly secondary to opiate pain medications. He did receive a dose of Dilaudid approximately 1 hour earlier, responded favorably to Narcan IV push. I am told patient has some baseline dementia. History of dementia Anion gap metabolic acidosis and lactic acidosis, lactic acidosis, improving Positive glucosuria and ketonuria, consider euglycemic DKA Acute leukocytosis, likely reactive to surgery, no obvious infectious process identified. Acute hypoxemic respiratory failure, currently on 4 L/min nasal cannula, follow- up chest x-ray shows mild cardiomegaly with mild bilateral interstitial edema. History of COPD, stable History of CVA/TIA History of hyperlipidemia History of hypertension History of diabetes mellitus, type II History of dementia History of seizure activity, not routinely on antiepileptic medications ECF resident Hearing impairment Plan: Patient's medications, labs, imaging were reviewed Mental status changes under investigation. Reportedly briefly had some nonpurposeful movements during the rapid response, however, no obvious seizure- like activity reported. Patient's altered mental status seems to have improved after Narcan IV push. Continue to monitor for any deterioration in mental status. Obtain CT of the brain without contrast Repeat ABG shows a PaO2 of 90, pCO2 of 37, pH of 7.28 Trend lactic acid Doubt infection/sepsis. Patient is prophylactically covered on Keflex postoperatively Check urinalysis Add sliding scale insulin Prognosis is guarded secondary to multiple medical comorbidities. Patient is a DO NOT RESUSCITATE/DO NOT INTUBATE. Patient has been transferred to room 253 in the intensive care unit. I have personally seen and examined the patient, performed the documentation and the assessment and plan as written. Number of minutes spent on the visit:20 This is a joint evaluation that was done along with the nurse petitioner. This evaluation was done and more than 30 minutes. In summary, the patient advanced dementia. The patient has had previous episodes of seizure and. The patient following his hip surgery, encountered another seizure episode. The patient came into the ICU, and the post ictal state and he was acidotic. The overall condition is stable. Follow-up blood gas showed improvement in his metabolic acidosis. Most recent blood gas showed a pH of 7.28 with a pCO2 of 37 and pO2 of 90 and the patient is currently on 3 L of oxygen by nasal cannula. Moving all 4 extremities without any limitation. Surgical wound site is dry clean and intact. Neurology is on the case. The patient is currently on Keppra 5 mg IV every 12 hours. IV fluids are in the form of normal saline at rate of 100 cc an hour. Blood work is stable. His lactic acid level was at 8.9 dropped down to 1.8. Patient states related to his generalized tonic-clonic seizures. Doing well. No other active issues for now. Will monitor. May transfer to medical surgical floor at a later stage based on his progress. EEG is to follow. Neurology consultation is to follow., Time with Patient: Greater than 30
[2024-01-06 02:39] LABS: Glucose,Whole Blood 199 mg/dL (70-110)
[2024-01-06] MEDS ORDERED: LORazepam 2 MG/ML INJ IV PRN (02:42)
[2024-01-06] MEDS: LORazepam 2 MG/ML INJ IV STA (02:54)
[2024-01-06] MEDS: INSULIN ASPART (NovoLOG) 100 UNIT/ML VIAL SQ SCH ×2 (03:07→18:16)
[2024-01-06] MEDS: levETIRAcetam IV 500 MG/5 ML VIAL IVP SCH (03:07)
--- NOTE | 2024-01-06 03:23 | CT ---
EXAM: CT Head Without Intravenous Contrast CLINICAL HISTORY: ITS.REASON CT Reason: AMS TECHNIQUE: Axial computed tomography images of the head/brain without intravenous contrast. CTDI is 49.2 mGy and DLP is 1360.4 mGy-cm. This CT exam was performed using one or more of the following dose reduction techniques: automated exposure control, adjustment of the mA and/or kV according to patient size, and/or use of iterative reconstruction technique. COMPARISON: 2022 FINDINGS: Brain: No hemorrhage, herniation, or mass effect. Chronic microvascular ischemic changes. Ventricles: Similar ventriculomegaly Bones/joints: Unremarkable. Soft tissues: Unremarkable. Sinuses: No air fluid levels. Mastoid air cells: Clear. IMPRESSION: No acute hemorrhage, or mass effect. Similar ventriculomegaly
[2024-01-06 06:29] LABS: Basophils % (A) 0 %; Eosinophils % (A) 0 %; HCT 41.4 % (39.0-53.0); HGB 13.7 gm/dL (13.0-17.5); Lymphocytes # (A) 0.5 k/uL (1.0-4.8); Lymphocytes % (A) 3 %; MCHC 33.2 g/dL (31.0-37.0); MCV 99.4 fL (80.0-100.0); Mean Platelet Volume 8.1; Monocytes # (A) 1.4 k/uL (0-1.0); Monocytes % (A) 9 %; Neutrophils # (A) 13.7 k/uL (1.3-7.7); Neutrophils % (A) 87 %; Platelet Count 172 k/uL (150-450); RBC 4.16 m/uL (4.30-5.90); RDW 13.6 % (11.5-15.5); WBC 15.7 k/uL (3.8-10.6)
[2024-01-06 06:39] LABS: African American GFR (CKD) 74 (>60 ml/min/1.73 sqM); Anion Gap 9 mmol/L; Blood Urea Nitrogen 23 mg/dL (9-20); Calcium 8.4 mg/dL (8.4-10.2); Carbon Dioxide 17 mmol/L (22-30); Chloride 111 mmol/L (98-107); Glucose 200 mg/dL (74-99); Non-African American GFR(CKD) 64 (>60 ml/min/1.73 sqM); Potassium 4.8 mmol/L (3.5-5.1); Sodium 137 mmol/L (137-145)
--- NOTE | 2024-01-06 07:58 | FL ---
EXAMINATION TYPE: FL guidance operating room DATE OF EXAM: 01/05/2024 HISTORY: Fluoroscopy time Total dose area product (DAP) in uGy*m?, mGy*cm? (or similar): 1.4322 IMPRESSION: 1. Fluoroscopy time.
[2024-01-06] MEDS: ASPIRIN 81 MG PO SCH (08:38)
[2024-01-06 08:39] LABS: Glucose,Whole Blood 162 mg/dL (70-110)
--- NOTE | 2024-01-06 09:28 | P.PN ---
Subjective Progress Note Date: 01/06/24 patient is admitted to the ICU overnight after being found unresponsive. He transiently responded to Narcan. He had a computed tomography scan which was negative. This morning he is more awake. Objective - Vital Signs Vital signs: Vital Signs Temp 97.8 F 01/06/24 04:00 Pulse 112 H 01/06/24 07:00 Resp 19 01/06/24 07:00 BP 145/88 01/06/24 07:00 Pulse Ox 89 L 01/06/24 07:00 FiO2 Intake & Output 01/05/24 01/06/24 01/06/24 18:59 06:59 18:59 Intake Total 1725 1750 100 Output Total 1190 60 Balance 1725 560 40 Weight 107.3 kg Intake: IV 1725 650 100 Sodium Chloride 0.9% 1, 600 100 000 ml @ 100 mls/hr IV . Q10H [facility] Rx#:[id number] Sodium Chloride 0.9% 1, 825 000 ml @ 75 mls/hr IV . [id number] [facility] Rx#:[id number] Intake, IV Titration 1100 Amount Sodium Chloride 0.9% 1, 100 000 ml @ 100 mls/hr IV . Q10H [facility] Rx#:[id number] Sodium Chloride 0.9% 1, 1000 000 ml @ 999 mls/hr IV . Q1H1M ONE Rx#:[id number] Output: Urine 690 60 Estimated Blood Loss 500 Other: Voiding Method Diaper Indwelling Catheter Incontinent # Voids 1 - Exam patient is awake. He is extremely hard of hearing and has baseline dementia. The dressing over his left hip is intact with no drainage or strike through. There is mild swelling throughout the thigh. He appears to be actively moving his toes. - Labs CBC & Chem 7: 01/06/24 05:36 01/06/24 05:36 Labs: Abnormal Lab Results - Last 24 Hours (Table) 01/05/24 01/05/24 01/05/24 Range/Units 22:44 23:33 23:39 WBC 13.5 H (3.8-10.6) k/uL RBC (4.30-5.90) m/uL MCV 101.8 H (80.0-100.0) fL Plt Count 143 L (150-450) k/uL Neutrophils # 12.3 H (1.3-7.7) k/uL Lymphocytes # 0.6 L (1.0-4.8) k/uL Monocytes # (0-1.0) k/uL ABG pH 7.12 L* (7.35-7.45) ABG pO2 167 H (83-108) mmHg ABG HCO3 14 L (21-25) mmol/L ABG Total CO2 16 L (19-24) mmol/L ABG O2 Saturation 99.0 H (94-97) % Chloride (98-107) mmol/L Carbon Dioxide (22-30) mmol/L BUN (9-20) mg/dL Glucose (74-99) mg/dL POC Glucose (mg/dL) 139 H (70-110) mg/dL Plasma Lactic Acid Kojo (0.7-2.0) mmol/L Creatine Kinase (55-170) U/L Urine Protein (Negative) Urine Glucose (UA) (Negative) Urine Ketones (Negative) Urine Blood (Negative) Ur Leukocyte Esterase (Negative) Urine RBC (0-5) /hpf Urine WBC (0-5) /hpf Hyaline Casts (0-2) /lpf Urine Mucus (None) /hpf 01/06/24 01/06/24 01/06/24 Range/Units 00:05 00:06 00:13 WBC (3.8-10.6) k/uL RBC (4.30-5.90) m/uL MCV (80.0-100.0) fL Plt Count (150-450) k/uL Neutrophils # (1.3-7.7) k/uL Lymphocytes # (1.0-4.8) k/uL Monocytes # (0-1.0) k/uL ABG pH (7.35-7.45) ABG pO2 (83-108) mmHg ABG HCO3 (21-25) mmol/L ABG Total CO2 (19-24) mmol/L ABG O2 Saturation (94-97) % Chloride (98-107) mmol/L Carbon Dioxide (22-30) mmol/L BUN (9-20) mg/dL Glucose (74-99) mg/dL POC Glucose (mg/dL) 170 H (70-110) mg/dL Plasma Lactic Acid Kojo 6.7 H* (0.7-2.0) mmol/L Creatine Kinase 293 H (55-170) U/L Urine Protein (Negative) Urine Glucose (UA) (Negative) Urine Ketones (Negative) Urine Blood (Negative) Ur Leukocyte Esterase (Negative) Urine RBC (0-5) /hpf Urine WBC (0-5) /hpf Hyaline Casts (0-2) /lpf Urine Mucus (None) /hpf 01/06/24 01/06/24 01/06/24 Range/Units 00:25 01:02 01:51 WBC (3.8-10.6) k/uL RBC (4.30-5.90) m/uL MCV (80.0-100.0) fL Plt Count (150-450) k/uL Neutrophils # (1.3-7.7) k/uL Lymphocytes # (1.0-4.8) k/uL Monocytes # (0-1.0) k/uL ABG pH 7.28 L (7.35-7.45) ABG pO2 (83-108) mmHg ABG HCO3 18 L (21-25) mmol/L ABG Total CO2 (19-24) mmol/L ABG O2 Saturation (94-97) % Chloride 109 H (98-107) mmol/L Carbon Dioxide 10 L (22-30) mmol/L BUN 23 H (9-20) mg/dL Glucose 184 H (74-99) mg/dL POC Glucose (mg/dL) (70-110) mg/dL Plasma Lactic Acid Kojo (0.7-2.0) mmol/L Creatine Kinase (55-170) U/L Urine Protein Trace H (Negative) Urine Glucose (UA) 3+ H (Negative) Urine Ketones 2+ H (Negative) Urine Blood Moderate H (Negative) Ur Leukocyte Esterase Small H (Negative) Urine RBC 51 H (0-5) /hpf Urine WBC 17 H (0-5) /hpf Hyaline Casts 5 H (0-2) /lpf Urine Mucus Rare H (None) /hpf 01/06/24 01/06/24 01/06/24 Range/Units 02:37 03:28 05:36 WBC (3.8-10.6) k/uL RBC (4.30-5.90) m/uL MCV (80.0-100.0) fL Plt Count (150-450) k/uL Neutrophils # (1.3-7.7) k/uL Lymphocytes # (1.0-4.8) k/uL Monocytes # (0-1.0) k/uL ABG pH (7.35-7.45) ABG pO2 (83-108) mmHg ABG HCO3 (21-25) mmol/L ABG Total CO2 (19-24) mmol/L ABG O2 Saturation (94-97) % Chloride 111 H (98-107) mmol/L Carbon Dioxide 17 L (22-30) mmol/L BUN 23 H (9-20) mg/dL Glucose 200 H (74-99) mg/dL POC Glucose (mg/dL) 199 H (70-110) mg/dL Plasma Lactic Acid Kojo 8.9 H* (0.7-2.0) mmol/L Creatine Kinase (55-170) U/L Urine Protein (Negative) Urine Glucose (UA) (Negative) Urine Ketones (Negative) Urine Blood (Negative) Ur Leukocyte Esterase (Negative) Urine RBC (0-5) /hpf Urine WBC (0-5) /hpf Hyaline Casts (0-2) /lpf Urine Mucus (None) /hpf 01/06/24 01/06/24 Range/Units 05:36 08:37 WBC 15.7 H (3.8-10.6) k/uL RBC 4.16 L (4.30-5.90) m/uL MCV (80.0-100.0) fL Plt Count (150-450) k/uL Neutrophils # 13.7 H (1.3-7.7) k/uL Lymphocytes # 0.5 L (1.0-4.8) k/uL Monocytes # 1.4 H (0-1.0) k/uL ABG pH (7.35-7.45) ABG pO2 (83-108) mmHg ABG HCO3 (21-25) mmol/L ABG Total CO2 (19-24) mmol/L ABG O2 Saturation (94-97) % Chloride (98-107) mmol/L Carbon Dioxide (22-30) mmol/L BUN (9-20) mg/dL Glucose (74-99) mg/dL POC Glucose (mg/dL) 162 H (70-110) mg/dL Plasma Lactic Acid Kojo (0.7-2.0) mmol/L Creatine Kinase (55-170) U/L Urine Protein (Negative) Urine Glucose (UA) (Negative) Urine Ketones (Negative) Urine Blood (Negative) Ur Leukocyte Esterase (Negative) Urine RBC (0-5) /hpf Urine WBC (0-5) /hpf Hyaline Casts (0-2) /lpf Urine Mucus (None) /hpf Assessment and Plan Assessment: postoperative day #1 status post left hip hemiarthroplasty for femoral neck fracture Multiple medical problems Plan: 1. Weight bear as tolerated on the operative extremity, up with assistance and a walker when medically stable 2. DVT prophylaxis with aspirin 81 mg BID, unless IM/ICU would like stronger chemoprophylaxis 3. 2 doses of post operative antibiotics followed by doxycycline until incision heals given multiple risk factors 4. Leave surgical dressing in place 5. Internal medicine, ICU and pulmonology for tobi-operative medical management. I appreciate medical assistance. 6. Physical therapy for gait training and mobilization 7. Dispo: Likely d/c back to ECF when medically stable.
[2024-01-06 12:08] LABS: Glucose,Whole Blood 161 mg/dL (70-110)
--- NOTE | 2024-01-06 13:32 | P.PN ---
Subjective patient is 68-year-old gentleman with past medical history significant for hypertension, hyperlipidemia who is currently resident of [facility] brought to the ER after a fall. Patient has been having left hip pain for the last 2 days after having a fall couple days ago. Patient denies any chest pain or shortness of breath. There is no complaint of orthopnea or PND. There is no complaint of loss of consciousness. There is no complaint of nausea, vomiting abdominal pain. Initial lab work done in the ER showed WBC 8.2, hemoglobin 15.4, platelet count 155, sodium 137, potassium 5.1, BUN 29, creatinine 1.03, UA negative for any infection EKG done in the ER showed heart rate of 77, no ST segment elevation or depression seen, no T-wave inversions seen. X-ray left hip done showed no acute displaced fracture CT left hip done showed acute nondisplaced fracture throughout the subcapital level of left hip Patient admitted to orthopedic service 01/04. Patient seen and examined. Currently n.p.o., going for procedure today. Complaining of left hip pain 01/05. Patient seen examined. Patient was transferred to ICU for seizure-like activity. Currently back to baseline, answering questions. REVIEW OF SYSTEMS: CONSTITUTIONAL: No fever, no malaise,. CARDIOVASCULAR: No chest pain, no palpitations, no syncope. PULMONARY: No shortness of breath, no cough, GASTROINTESTINAL: No diarrhea, no nausea, no vomiting, no abdominal pain. NEUROLOGICAL: No headaches, no weakness, PHYSICAL EXAMINATION: GENERAL: The patient is alert . Ill looking HEENT: Pupils are round and equally reacting to light. EOMI. No scleral icterus. Bilateral hearing grossly reduced CARDIOVASCULAR: S1 and S2 present. No murmurs, rubs, or gallops. PULMONARY: Chest is clear to auscultation, no wheezing or crackles. ABDOMEN: Soft, nontender, nondistended, normoactive bowel sounds. No palpable organomegaly. MUSCULOSKELETAL: No joint swelling or deformity. Left hip surgical incision seen EXTREMITIES: No cyanosis, clubbing, or pedal edema. NEUROLOGICAL: Gross neurological examination did not reveal any focal deficits. SKIN: No rashes. Assessment and plan Fall Left hip fracture Acute metabolic encephalopathy Seizure-like activity Hypertension Hyperlipidemia BPH Monitor vital signs Monitor CBC Monitor CMP Continue pain management per orthopedics Continue DVT prophylaxis per orthopedics Seizure precautions Judicious use of pain medication Orthopedic following Neurology consulted Labs and medication were reviewed.. Continue same treatment. Continue with symptomatic treatment. Resume home medication. Monitor labs and vitals. DVT and GI prophylaxis. Further recommendations as per clinical course of the patient Dictation was produced using [employer] dictation software. please excuse any grammatical, word or spelling errors. Objective - Vital Signs Vital signs: Vital Signs Temp 97.8 F 01/06/24 04:00 Pulse 112 H 01/06/24 07:00 Resp 19 01/06/24 07:00 BP 145/88 01/06/24 07:00 Pulse Ox 89 L 01/06/24 07:00 FiO2 Intake & Output 01/05/24 01/06/24 01/06/24 18:59 06:59 18:59 Intake Total 1725 1750 100 Output Total 1190 60 Balance 1725 560 40 Weight 107.3 kg Intake: IV 1725 650 100 Sodium Chloride 0.9% 1, 600 100 000 ml @ 100 mls/hr IV . Q10H [facility] Rx#:[id number] Sodium Chloride 0.9% 1, 825 000 ml @ 75 mls/hr IV . [id number] [facility] Rx#:[id number] Intake, IV Titration 1100 Amount Sodium Chloride 0.9% 1, 100 000 ml @ 100 mls/hr IV . Q10H [facility] Rx#:[id number] Sodium Chloride 0.9% 1, 1000 000 ml @ 999 mls/hr IV . Q1H1M ONE Rx#:[id number] Output: Urine 690 60 Estimated Blood Loss 500 Other: Voiding Method Diaper Indwelling Catheter Incontinent # Voids 1 - Labs CBC & Chem 7: 01/06/24 05:36 01/06/24 05:36 Labs: Abnormal Lab Results - Last 24 Hours (Table) 01/05/24 01/05/24 01/05/24 Range/Units 22:44 23:33 23:39 WBC 13.5 H (3.8-10.6) k/uL RBC (4.30-5.90) m/uL MCV 101.8 H (80.0-100.0) fL Plt Count 143 L (150-450) k/uL Neutrophils # 12.3 H (1.3-7.7) k/uL Lymphocytes # 0.6 L (1.0-4.8) k/uL Monocytes # (0-1.0) k/uL ABG pH 7.12 L* (7.35-7.45) ABG pO2 167 H (83-108) mmHg ABG HCO3 14 L (21-25) mmol/L ABG Total CO2 16 L (19-24) mmol/L ABG O2 Saturation 99.0 H (94-97) % Chloride (98-107) mmol/L Carbon Dioxide (22-30) mmol/L BUN (9-20) mg/dL Glucose (74-99) mg/dL POC Glucose (mg/dL) 139 H (70-110) mg/dL Plasma Lactic Acid Kojo (0.7-2.0) mmol/L Creatine Kinase (55-170) U/L Urine Protein (Negative) Urine Glucose (UA) (Negative) Urine Ketones (Negative) Urine Blood (Negative) Ur Leukocyte Esterase (Negative) Urine RBC (0-5) /hpf Urine WBC (0-5) /hpf Hyaline Casts (0-2) /lpf Urine Mucus (None) /hpf 01/06/24 01/06/24 01/06/24 Range/Units 00:05 00:06 00:13 WBC (3.8-10.6) k/uL RBC (4.30-5.90) m/uL MCV (80.0-100.0) fL Plt Count (150-450) k/uL Neutrophils # (1.3-7.7) k/uL Lymphocytes # (1.0-4.8) k/uL Monocytes # (0-1.0) k/uL ABG pH (7.35-7.45) ABG pO2 (83-108) mmHg ABG HCO3 (21-25) mmol/L ABG Total CO2 (19-24) mmol/L ABG O2 Saturation (94-97) % Chloride (98-107) mmol/L Carbon Dioxide (22-30) mmol/L BUN (9-20) mg/dL Glucose (74-99) mg/dL POC Glucose (mg/dL) 170 H (70-110) mg/dL Plasma Lactic Acid Kojo 6.7 H* (0.7-2.0) mmol/L Creatine Kinase 293 H (55-170) U/L Urine Protein (Negative) Urine Glucose (UA) (Negative) Urine Ketones (Negative) Urine Blood (Negative) Ur Leukocyte Esterase (Negative) Urine RBC (0-5) /hpf Urine WBC (0-5) /hpf Hyaline Casts (0-2) /lpf Urine Mucus (None) /hpf 01/06/24 01/06/24 01/06/24 Range/Units 00:25 01:02 01:51 WBC (3.8-10.6) k/uL RBC (4.30-5.90) m/uL MCV (80.0-100.0) fL Plt Count (150-450) k/uL Neutrophils # (1.3-7.7) k/uL Lymphocytes # (1.0-4.8) k/uL Monocytes # (0-1.0) k/uL ABG pH 7.28 L (7.35-7.45) ABG pO2 (83-108) mmHg ABG HCO3 18 L (21-25) mmol/L ABG Total CO2 (19-24) mmol/L ABG O2 Saturation (94-97) % Chloride 109 H (98-107) mmol/L Carbon Dioxide 10 L (22-30) mmol/L BUN 23 H (9-20) mg/dL Glucose 184 H (74-99) mg/dL POC Glucose (mg/dL) (70-110) mg/dL Plasma Lactic Acid Kojo (0.7-2.0) mmol/L Creatine Kinase (55-170) U/L Urine Protein Trace H (Negative) Urine Glucose (UA) 3+ H (Negative) Urine Ketones 2+ H (Negative) Urine Blood Moderate H (Negative) Ur Leukocyte Esterase Small H (Negative) Urine RBC 51 H (0-5) /hpf Urine WBC 17 H (0-5) /hpf Hyaline Casts 5 H (0-2) /lpf Urine Mucus Rare H (None) /hpf 01/06/24 01/06/24 01/06/24 Range/Units 02:37 03:28 05:36 WBC (3.8-10.6) k/uL RBC (4.30-5.90) m/uL MCV (80.0-100.0) fL Plt Count (150-450) k/uL Neutrophils # (1.3-7.7) k/uL Lymphocytes # (1.0-4.8) k/uL Monocytes # (0-1.0) k/uL ABG pH (7.35-7.45) ABG pO2 (83-108) mmHg ABG HCO3 (21-25) mmol/L ABG Total CO2 (19-24) mmol/L ABG O2 Saturation (94-97) % Chloride 111 H (98-107) mmol/L Carbon Dioxide 17 L (22-30) mmol/L BUN 23 H (9-20) mg/dL Glucose 200 H (74-99) mg/dL POC Glucose (mg/dL) 199 H (70-110) mg/dL Plasma Lactic Acid Kojo 8.9 H* (0.7-2.0) mmol/L Creatine Kinase (55-170) U/L Urine Protein (Negative) Urine Glucose (UA) (Negative) Urine Ketones (Negative) Urine Blood (Negative) Ur Leukocyte Esterase (Negative) Urine RBC (0-5) /hpf Urine WBC (0-5) /hpf Hyaline Casts (0-2) /lpf Urine Mucus (None) /hpf 01/06/24 01/06/24 Range/Units 05:36 08:37 WBC 15.7 H (3.8-10.6) k/uL RBC 4.16 L (4.30-5.90) m/uL MCV (80.0-100.0) fL Plt Count (150-450) k/uL Neutrophils # 13.7 H (1.3-7.7) k/uL Lymphocytes # 0.5 L (1.0-4.8) k/uL Monocytes # 1.4 H (0-1.0) k/uL ABG pH (7.35-7.45) ABG pO2 (83-108) mmHg ABG HCO3 (21-25) mmol/L ABG Total CO2 (19-24) mmol/L ABG O2 Saturation (94-97) % Chloride (98-107) mmol/L Carbon Dioxide (22-30) mmol/L BUN (9-20) mg/dL Glucose (74-99) mg/dL POC Glucose (mg/dL) 162 H (70-110) mg/dL Plasma Lactic Acid Kojo (0.7-2.0) mmol/L Creatine Kinase (55-170) U/L Urine Protein (Negative) Urine Glucose (UA) (Negative) Urine Ketones (Negative) Urine Blood (Negative) Ur Leukocyte Esterase (Negative) Urine RBC (0-5) /hpf Urine WBC (0-5) /hpf Hyaline Casts (0-2) /lpf Urine Mucus (None) /hpf
--- NOTE | 2024-01-06 14:24 | P.CNNES ---
History of Present Illness Consult date: 01/06/24 Requesting physician: Saman Butcher Reason for Consult: seizures History of Present Illness: This is a 68-year-old gentleman with history of advanced dementia, stroke, seizure, frequent falls, very hard of hearing who presented emergency department on 01/03/2024 from his nursing facility after a fall having left leg. Neurology is consulted for seizure. Patient had images of the left hip which demonstrated acute nondisplaced fracture through the subcapital level of the left hip and he underwent left direct anterior hip hemiarthroplasty surgery on 01/05/2024. Patient was initially transferred to the medical surgical unit for recovery and it seems the patient was minimally responsive there and a team was called overhead he did receive dose of Dilaudid earlier and responded after Narcan. It seems that the patient had some nonpurposeful movement but no obvious seizure- like activity. Patient had ABG which showed profound metabolic acidosis. As a result the patient was transferred to ICU. It seems that the patient was taken 7 to had overnight and the patient had seizure-like activity and according to e nurse he had functional posterior of the arms with eyes deviated upwards but he had tonic-clonic seizure and his seizure overnight was around 2:30-3:20ish am. He was given 2mg of Ativan.started on Keppra 500 mg twice daily. Reported seizure activity afterwards. Of note, patient was seen in past by Dr. Bansal on 02/24/2023 and here in his note he stated the patient has new onset seizure occurred postoperatively and unclear cause. He also had status post fall with right femoral neck fracture status post arthroplasty. It seems that the patient was on Keppra but then Dr. Bansal titrated his Keppra and eventually stopped it. He had the EEG and no seizure was noted on the EEG. Dr. Bansal felt abnormal CT of the head with evidence of possible NPH. Please refer to his note for further details. Some of the Workup during this hospital visit consisted of: Plasma lactic acid vein was as high as 8.9 during this admission and that has resolved to 1.8 Most recent serum glucose is 200 Calcium is 8.4 I reviewed the left rest of the lab testing. Head is reported as no acute hemorrhage or mass effect. Similar ventriculomegaly. I personally reviewed the CT and I agree with the report. Review of Systems Limited but positive and negative as per HPI. Past Medical History Past Medical History: Unable to Obtain, COPD, CVA/TIA, Dementia, Hearing Disorder / Deafness, Hyperlipidemia, Hypertension, Prostate Disorder Additional Past Medical History / Comment(s): AMS changes/ischemic encephalopathy/vascular dementia/CPD/ASHD/presbycusis. He had a LP performed and was transferred to [facility]. Discharge diagnosis from 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 [facility] states they were also told uncontrolled HTN/hydrocephalus/advance dementia/uti. Other hx: 2013 CVA without residual, [place] bilaterally/speak in R ear, occasional urinary incontinence/frequency, CKD, nephrolithiasis, BPH, occasional back pain. History of Any Multi-Drug Resistant Organisms: None Reported Past Surgical History: Appendectomy Additional Past Surgical History / Comment(s): colonoscopy, urology surgery Past Anesthesia/Blood Transfusion Reactions: No Reported Reaction Past Psychological History: Anxiety, Depression Smoking Status: Former smoker Past Alcohol Use History: None Reported Past Drug Use History: None Reported - Past Family History Mother Family Medical History: Dementia, Hypertension Father Family Medical History: Cancer Additional Family Medical History / Comment(s): Lung cancer. Father was a smoker. Medications and Allergies Home Medications Medication Instructions Recorded Confirmed Type Atorvastatin [Lipitor] 10 mg PO HS 04/14/20 01/04/24 History Folic Acid 0.4 mg PO DAILY 04/14/20 01/04/24 History Thiamine HCl [Vitamin B-1] 100 mg PO DAILY 04/14/20 01/04/24 History amLODIPine [Norvasc] 10 mg PO DAILY 04/14/20 01/04/24 History Acetaminophen Tab [Tylenol] 650 mg PO Q6H PRN 06/14/20 01/04/24 History QUEtiapine [SEROquel] 100 mg PO HS 02/20/23 01/04/24 History Sertraline [Zoloft] 25 mg PO DAILY 02/20/23 01/04/24 History Docusate [Colace] 100 mg PO BID #60 capsule 02/21/23 01/04/24 Rx Aspirin 81 mg PO DAILY 01/04/24 01/04/24 History HYDROcodone/APAP 5-325MG [[place] 1 tab PO BID PRN 01/04/24 01/04/24 History 5-325] HYDROcodone/APAP 5-325MG [[place] 1 tab PO Q8H 01/04/24 01/04/24 History 5-325] Lactose-Reduced Food [Ensure Plus] 237 ml PO DAILY 01/04/24 01/04/24 History Magnesium Hydroxide [Milk of 2,400 mg PO DAILY PRN 01/04/24 01/04/24 History Magnesia] Na Phos,M-B/Na Phos,Di-Ba [Fleet 133 ml RECTAL DAILY PRN 01/04/24 01/04/24 History Adult] Omeprazole [PriLOSEC] 20 mg PO DAILY 01/04/24 01/04/24 History QUEtiapine [SEROquel] 50 mg PO BID@0900,1400 01/04/24 01/04/24 History Sennosides/Docusate Sodium [Senna 2 tab PO HS 01/04/24 01/04/24 History Plus 8.6-50 mg Tablet] Sertraline HCl [Zoloft] 50 mg PO DAILY 01/04/24 01/04/24 History bisacodyL [Dulcolax] 10 mg RECTAL DAILY PRN 01/04/24 01/04/24 History metFORMIN HCL ER [Glucophage XR] 500 mg PO DAILY 01/04/24 01/04/24 History Allergies Allergy/AdvReac Type Severity Reaction Status Date / Time No Known Allergies Allergy Verified 01/05/24 18:16 Physical Examination - Vital Signs Vital Signs: Vital Signs Temp Pulse Pulse Pulse Resp BP BP 01/06/24 11:06 112 H 22 153/82 01/06/24 10:00 107 H 22 01/06/24 09:00 117 H 22 157/91 01/06/24 08:00 98.7 F 114 H 24 135/92 01/06/24 07:00 112 H 19 145/88 01/06/24 06:50 117 H 16 145/88 01/06/24 06:40 118 H 20 145/88 01/06/24 06:30 118 H 13 145/88 01/06/24 06:20 120 H 17 145/88 01/06/24 06:10 124 H 19 145/88 01/06/24 06:00 111 H 16 141/86 01/06/24 05:50 120 H 26 H 141/86 07 05:40 24 01/06/24 05:30 121 H 14 141/86 01/06/24 05:20 117 H 19 141/86 01/06/24 05:10 116 H 21 141/86 01/06/24 05:00 24 144/87 01/06/24 04:50 122 H 15 144/87 01/06/24 04:40 122 H 23 144/87 01/06/24 04:30 124 H 18 144/87 01/06/24 04:20 121 H 17 144/87 01/06/24 04:10 122 H 14 144/87 01/06/24 04:00 97.8 F 121 H 126 H 24 131/94 /08/30 03:50 16 131/94 01/06/24 03:40 129 H 22 131/94 01/06/24 03:30 20 131/94 /08/30 03:20 19 131/94 01/06/24 03:10 134 H 16 131/94 01/06/24 03:00 133 H 13 163/99 /02 02:50 134 H 18 163/99 07/02 02:40 131 H 21 163/99 07/02 02:30 163/99 /02 02:20 163/99 /02 02:10 111 H 9 L 163/99 /02 02:00 13 153/91 /02 01:50 101 H 11 L 153/91 /08/30 01:40 101 H 15 153/91 /02 01:30 105 H 13 153/91 /08/30 01:20 107 H 12 153/91 /08/30 01:10 118 H 39 H 153/91 /08/30 01:00 114 H 16 148/98 07/02 00:50 111 H 16 148/98 /02 00:41 115 H 11 L /08/30 00:40 112 H 23 148/98 /08/30 00:30 112 H 9 L 148/98 /02/ 00:20 22 148/98 /08/30 00:10 124 H 15 148/98 /08/30 00:05 21 01/05/24 23:48 126 H 162/82 01/05/24 23:43 126 H 144/90 01/05/24 23:39 8 L 01/05/24 23:37 123 H 161/90 01/05/24 23:33 114 H 167/88 01/05/24 23:32 114 H 179/91 01/05/24 23:19 103 H 153/83 01/05/24 23:03 103 H 148/93 01/05/24 22:49 100 156/91 01/05/24 22:33 130 H 162/90 01/05/24 22:20 98 134/103 01/05/24 22:03 101 H 120/68 01/05/24 21:58 100 20 163/90 01/05/24 21:32 97 16 143/74 01/05/24 21:17 84 16 135/69 01/05/24 21:02 97 F L 84 16 132/63 01/05/24 18:05 98.2 F 79 15 147/81 01/05/24 14:36 98.2 F 75 16 152/79 Pulse Ox 01/06/24 11:06 93 L 01/06/24 10:00 01/06/24 09:00 90 L 01/06/24 08:00 91 L 01/06/24 07:00 89 L 01/06/24 06:50 90 L 01/06/24 06:40 92 L 01/06/24 06:30 91 L 01/06/24 06:20 91 L 01/06/24 06:10 95 01/06/24 06:00 94 L 01/06/24 05:50 89 L 01/06/24 05:40 91 L 01/06/24 05:30 94 L 01/06/24 05:20 94 L 01/06/24 05:10 93 L 01/06/24 05:00 87 L 01/06/24 04:50 93 L 01/06/24 04:40 94 L 01/06/24 04:30 93 L 01/06/24 04:20 93 L 01/06/24 04:10 93 L 01/06/24 04:00 94 L 01/06/24 03:50 93 L 01/06/24 03:40 94 L 01/06/24 03:30 94 L 01/06/24 03:20 93 L 01/06/24 03:10 94 L 01/06/24 03:00 94 L 01/06/24 02:50 94 L 01/06/24 02:40 94 L 01/06/24 02:30 01/06/24 02:20 01/06/24 02:10 91 L 01/06/24 02:00 95 01/06/24 01:50 94 L 01/06/24 01:40 92 L 01/06/24 01:30 94 L 01/06/24 01:20 94 L 01/06/24 01:10 95 01/06/24 01:00 95 01/06/24 00:50 95 01/06/24 00:41 01/06/24 00:40 94 L 01/06/24 00:30 95 01/06/24 00:20 96 01/06/24 00:10 95 01/06/24 00:05 01/05/24 23:48 95 01/05/24 23:43 95 01/05/24 23:39 01/05/24 23:37 97 01/05/24 23:33 96 01/05/24 23:32 97 01/05/24 23:19 93 L 01/05/24 23:03 89 L 01/05/24 22:49 91 L 01/05/24 22:33 85 L 01/05/24 22:20 93 L 01/05/24 22:03 97 01/05/24 21:58 95 01/05/24 21:32 93 L 01/05/24 21:17 98 01/05/24 21:02 96 01/05/24 18:05 94 L 01/05/24 14:36 93 L Intake and Output 01/05/24 01/06/24 01/06/24 22:59 06:59 14:59 Intake Total 1775 1700 980 Output Total 600 590 535 Balance 1175 1110 445 Intake: IV 1775 600 700 Sodium Chloride 0.9% 1, 600 700 000 ml @ 100 mls/hr IV . Q10H [facility] Rx#:[id number] Sodium Chloride 0.9% 1, 825 000 ml @ 75 mls/hr IV . [id number] [facility] Rx#:[id number] Intake, IV Titration 1100 100 Amount Sodium Chloride 0.9% 1, 100 000 ml @ 100 mls/hr IV . Q10H [facility] Rx#:[id number] Sodium Chloride 0.9% 1, 1000 000 ml @ 999 mls/hr IV . Q1H1M [facility] Rx#:[id number] ceFAZolin 2 gm In Sodium 100 Chloride 0.9% 50 ml @ 100 mls/hr IVPB Q8HR [facility] Rx# :[id number] Oral 180 Output: Urine 100 590 535 Estimated Blood Loss 500 Other: Voiding Method Indwelling Catheter Indwelling Catheter Indwelling Catheter Weight 107.3 kg General: Lying in bed and does not appear in acute distress. HENT: Supple neck. Neuro: Very Limited. He is very hard of hearing. He open his eyes to verbal stimuli but does not follow commands. He states "what" when nurses were trying to move them and getting very upset. Puplis are round, equal and reactive to light. Pupils are 4mm bilaterally and reactive to light. He is tracking. No facial weakness. Motor: Strength is limited in assessment. He moves the right side spontaneous move than left. He does moves the left upper extremity as well but hard to assess individual muscle strength. The left lower extremity upon movement he was in pain (side of fall and surgery around the hip). Results - Laboratory Findings CBC and BMP: 01/06/24 05:36 01/06/24 05:36 Abnormal Lab Findings: Abnormal Labs 01/03/24 01/03/24 01/04/24 22:50 22:50 05:30 WBC RBC MCV Plt Count Neutrophils # Lymphocytes # Monocytes # APTT 21.5 L ABG pH ABG pO2 ABG HCO3 ABG Total CO2 ABG O2 Saturation Chloride Carbon Dioxide BUN 25 H Glucose POC Glucose (mg/dL) Plasma Lactic Acid Kojo Creatine Kinase Urine Protein Urine Glucose (UA) Urine Ketones Urine Blood Ur Leukocyte Esterase Urine RBC Urine WBC Amorphous Sediment Moderate H Hyaline Casts Urine Mucus 01/05/24 01/05/24 01/05/24 22:44 23:33 23:39 WBC 13.5 H RBC MCV 101.8 H Plt Count 143 L Neutrophils # 12.3 H Lymphocytes # 0.6 L Monocytes # APTT ABG pH 7.12 L* ABG pO2 167 H ABG HCO3 14 L ABG Total CO2 16 L ABG O2 Saturation 99.0 H Chloride Carbon Dioxide BUN Glucose POC Glucose (mg/dL) 139 H Plasma Lactic Acid Kojo Creatine Kinase Urine Protein Urine Glucose (UA) Urine Ketones Urine Blood Ur Leukocyte Esterase Urine RBC Urine WBC Amorphous Sediment Hyaline Casts Urine Mucus 01/06/24 01/06/24 01/06/24 00:05 00:06 00:13 WBC RBC MCV Plt Count Neutrophils # Lymphocytes # Monocytes # APTT ABG pH ABG pO2 ABG HCO3 ABG Total CO2 ABG O2 Saturation Chloride Carbon Dioxide BUN Glucose POC Glucose (mg/dL) 170 H Plasma Lactic Acid Kojo 6.7 H* Creatine Kinase 293 H Urine Protein Urine Glucose (UA) Urine Ketones Urine Blood Ur Leukocyte Esterase Urine RBC Urine WBC Amorphous Sediment Hyaline Casts Urine Mucus 01/06/24 01/06/24 01/06/24 00:25 01:02 01:51 WBC RBC MCV Plt Count Neutrophils # Lymphocytes # Monocytes # APTT ABG pH 7.28 L ABG pO2 ABG HCO3 18 L ABG Total CO2 ABG O2 Saturation Chloride 109 H Carbon Dioxide 10 L BUN 23 H Glucose 184 H POC Glucose (mg/dL) Plasma Lactic Acid Kojo Creatine Kinase Urine Protein Trace H Urine Glucose (UA) 3+ H Urine Ketones 2+ H Urine Blood Moderate H Ur Leukocyte Esterase Small H Urine RBC 51 H Urine WBC 17 H Amorphous Sediment Hyaline Casts 5 H Urine Mucus Rare H 01/06/24 01/06/24 01/06/24 02:37 03:28 05:36 WBC RBC MCV Plt Count Neutrophils # Lymphocytes # Monocytes # APTT ABG pH ABG pO2 ABG HCO3 ABG Total CO2 ABG O2 Saturation Chloride 111 H Carbon Dioxide 17 L BUN 23 H Glucose 200 H POC Glucose (mg/dL) 199 H Plasma Lactic Acid Kojo 8.9 H* Creatine Kinase Urine Protein Urine Glucose (UA) Urine Ketones Urine Blood Ur Leukocyte Esterase Urine RBC Urine WBC Amorphous Sediment Hyaline Casts Urine Mucus 01/06/24 01/06/24 01/06/24 05:36 08:37 12:06 WBC 15.7 H RBC 4.16 L MCV Plt Count Neutrophils # 13.7 H Lymphocytes # 0.5 L Monocytes # 1.4 H APTT ABG pH ABG pO2 ABG HCO3 ABG Total CO2 ABG O2 Saturation Chloride Carbon Dioxide BUN Glucose POC Glucose (mg/dL) 162 H 161 H Plasma Lactic Acid [place] Creatine Kinase Urine Protein Urine Glucose (UA) Urine Ketones Urine Blood Ur Leukocyte Esterase Urine RBC Urine WBC Amorphous Sediment Hyaline Casts Urine Mucus Assessment and Plan Assessment: This is a 68-year-old gentleman with history of advanced dementia, stroke, very hard of hearing, seizure and fall with right femoral neck fracture s/p arthoplasty in 02/[address] Bansal who states new onset seizure and took him off Keppra who presents back to our facility because of fall with left hip pain who was found to have left hip fracture and had arthroplasty on 01/05/2024 who yesterday had episode of confusion which he responded to narcan while on floor and ABG showed metabolic acidosis the overnight while getting CT brain he had tonic-clonic seizure. Breakthrough seizure: Due to not on antiepileptic drugs. Fall with left hip fracture s/ arthroplasty on 01/05/2024. Fall probable due to seizure vs NPH Had new onset seizure on 02/2023 with fall and had right hip fracture s/p arthroplasty Dilated ventricles on imaging seems possible due to NPH (CT finding same as past) Advance dementia History of stroke Very hard of hearing Hypertension Hyperlipidemia Underlying history of COPD Plan: I agree with starting Keppra 500mg IV every 12 hours. If patient become too agitated with medication will switch to Vimpat 50mg bid. Ordered routine EEG. Today the tech attempted to perform the exam but unable since patient was agitated and uncooperative. Will attempt again tomorrow. Seizure precaution and pads Recommend the patient to follow-up with neurosurgeon as outpatient for this concern of NPH to consider INDUSTRIAL SOCIOLOGIST shunt. Recommend first as outpatient to obtain large volume tap and if improvement to consider INDUSTRIAL SOCIOLOGIST shunt. Will defer the rest of medical management to primary team and other specialist. The plan is discussed with his ICU nurse. Thank you for the consultation. Time with Patient: Greater than 30
[2024-01-06] MEDS: amLODIPine 10 MG TAB PO SCH (17:01)
[2024-01-06 18:11] LABS: Glucose,Whole Blood 143 mg/dL (70-110)
[2024-01-06] MEDS: SENNOSIDES-DOCUSATE SODIUM 1 EACH TAB PO SCH (21:16)
[2024-01-06] MEDS: QUEtiapine 100 MG TAB PO SCH (21:16)
[2024-01-07] MEDS: HYDROcodone/APAP 7.5-325MG 1 EACH TAB PO PRN (02:07)
[2024-01-07 05:49] LABS: Glucose,Whole Blood 123 mg/dL (70-110)
[2024-01-07] MEDS: SERTRALINE 25 MG TAB PO SCH (09:50)
[2024-01-07] MEDS: QUEtiapine 50 MG TAB PO SCH (09:50)
[2024-01-07] MEDS: SERTRALINE 50 MG TAB PO SCH (09:50)
[2024-01-07 12:10] LABS: Glucose,Whole Blood 135 mg/dL (70-110)
--- NOTE | 2024-01-07 14:27 | P.PN ---
Subjective Progress Note Date: 01/07/24 patient is 68-year-old gentleman with past medical history significant for hypertension, hyperlipidemia who is currently resident of long term brought to the ER after a fall. Patient has been having left hip pain for the last 2 days after having a fall couple days ago. Patient denies any chest pain or shortness of breath. There is no complaint of orthopnea or PND. There is no complaint of loss of consciousness. There is no complaint of nausea, vomiting abdominal pain. Initial lab work done in the ER showed WBC 8.2, hemoglobin 15.4, platelet count 155, sodium 137, potassium 5.1, BUN 29, creatinine 1.03, UA negative for any infection EKG done in the ER showed heart rate of 77, no ST segment elevation or depression seen, no T-wave inversions seen. X-ray left hip done showed no acute displaced fracture CT left hip done showed acute nondisplaced fracture throughout the subcapital level of left hip Patient admitted to orthopedic service 01/04. Patient seen and examined. Currently n.p.o., going for procedure today. Complaining of left hip pain 01/05. Patient seen examined. Patient was transferred to ICU for seizure-like activity. Currently back to baseline, answering questions. 01/06. Patient seen and examined. Patient evaluated by neurology, started patient on Keppra. Currently patient out of ICU on stepdown unit. Patient not very compliant with treatment, refused EEG REVIEW OF SYSTEMS: Review of system cannot be obtained as patient is agitated PHYSICAL EXAMINATION: GENERAL: The patient is alert . Ill looking HEENT: Pupils are round and equally reacting to light. EOMI. No scleral icterus. Bilateral hearing grossly reduced CARDIOVASCULAR: S1 and S2 present. No murmurs, rubs, or gallops. PULMONARY: Chest is clear to auscultation, no wheezing or crackles. ABDOMEN: Soft, nontender, nondistended, normoactive bowel sounds. No palpable organomegaly. MUSCULOSKELETAL: No joint swelling or deformity. Left hip surgical incision seen EXTREMITIES: No cyanosis, clubbing, or pedal edema. NEUROLOGICAL: Gross neurological examination did not reveal any focal deficits. SKIN: No rashes. Assessment and plan Fall Left hip fracture Acute metabolic encephalopathy Seizure-like activity Hypertension Hyperlipidemia BPH Monitor vital signs Monitor CBC Monitor CMP Continue pain management per orthopedics Continue DVT prophylaxis per orthopedics Seizure precautions Continue Keppra Judicious use of pain medication Orthopedic following Neurology following Labs and medication were reviewed.. Continue same treatment. Continue with symptomatic treatment. Resume home medication. Monitor labs and vitals. DVT and GI prophylaxis. Further recommendations as per clinical course of the patient Dictation was produced using [employer] dictation software. please excuse any grammatical, word or spelling errors. Objective - Vital Signs Vital signs: Vital Signs Temp 98 F 01/07/24 08:00 Pulse 110 H 01/07/24 08:00 Resp 14 01/07/24 08:00 BP 117/83 01/07/24 08:00 Pulse Ox 92 L 01/07/24 08:00 FiO2 Intake & Output 01/06/24 01/07/24 01/07/24 18:59 06:59 18:59 Intake Total 980 240 Output Total 535 Balance 445 240 Weight 85 kg Intake: IV 700 Sodium Chloride 0.9% 1, 700 000 ml @ 100 mls/hr IV . Q10H [facility] Rx#:[id number] Intake, IV Titration 100 Amount ceFAZolin 2 gm In Sodium 100 Chloride 0.9% 50 ml @ 100 mls/hr IVPB Q8HR [facility] Rx# :[id number] Oral 180 240 Output: Urine 535 Other: Voiding Method Diaper Diaper # Voids 5 2 - Labs CBC & Chem 7: 01/06/24 05:36 01/06/24 05:36 Labs: Abnormal Lab Results - Last 24 Hours (Table) 01/06/24 01/06/24 01/07/24 Range/Units 12:06 18:10 05:46 POC Glucose (mg/dL) 161 H 143 H 123 H (70-110) mg/dL
[2024-01-07 18:16] LABS: Glucose,Whole Blood 132 mg/dL (70-110)
--- NOTE | 2024-01-07 18:35 | P.PN ---
Subjective Progress Note Date: 01/07/24 Patient is 68-year-old white male with past medical history significant for chronic confusion/advanced dementia, frequent falls, previous displaced right subcapital femoral neck fracture and anterior hip hemiarthroplasty. Also, has past medical history of COPD, CVA/TIA, hyperlipidemia, hypertension, diabetes mellitus, and prostate disorder. Patient presented to our emergency department on January 02 from a long term after falling 2 days prior and having left hip pain. CT of the left hip demonstrated acute nondisplaced fracture through the subcapital level of the left hip. Patient did go undergo left direct anterior hip hemiarthroplasty yesterday evening on 01/05/2024. No intraoperative com plications were reported. Patient was initially transferred to the medical surgical unit for recovery. He was found to be minimally responsive, and in A team was called overhead. Did receive a dose of Dilaudid earlier, and responded favorably to Narcan IV push. He did reportedly briefly have some nonpurposeful movements, but no obvious seizure-like activity. Patient also had a ABG consistent with profound metabolic acidosis. With a PO2 of 167, pCO2 of 44, pH of 7.12. I recommended that the patient be worked up in the intensive care unit. On my evaluation, he is alert but it is very difficult to communicate. Patient is hard of hearing and I am told he has some baseline dementia. He can only communicate with written messages. Not particularly in any distress. Left hip incision site appears approximated without any obvious bleeding. On review of patient's medical record, he had a similar presentation approximately 1 year ago following a right femoral neck fracture and hemiarthroplasty. He was worked up by our inpatient neurology group, thought to have an isolated episode of seizure-like activity. Patient is currently not on any antiepileptic medications. He currently does not have any seizure-like activity. Neurological exam is nonfocal. No muscle rigidity. Reportedly received combination of rocuronium, propofol and fentanyl in the operating room. More labs are back. CBC: WBC count 13.5, hemoglobin 14.8, hematocrit 47.6, platelets 143. CMP: Sodium 137, potassium 4.8, chloride 109, serum bicarb 10, BUN 23, creatinine 1.17, glucose 184. Normal saline is infusing at 100 MLS per hour. Lactic acid level was elevated at 6.7. No recent doses of metformin since hospital admission. creatinine kinase 293. There is a indwelling urinary catheter with concentrated urine. Urinalysis reportedly positive for ketones and glucose. Consider euglycemic DKA. He was given a liter of normal saline bolus. No fevers. Tachycardic on bedside monitor, 112 bpm. Blood pressure is 148/98 mmHg. He is on 4 L/min nasal cannula. SpO2 95%. No respiratory distress. No tachypnea. Repeat ABG shows significant improvement in his metabolic acidosis. Seems to be clinically improving back to baseline. On 02/03/2024, the patient is being seen for a follow-up. Patient is stable. The patient has dementia and difficult to communicate with. The patient underwent a left hip hemiarthroplasty on 01/05/2024. Surgical wound is dry clean and intact. No agitation. He does have cognitive impairment related to his underlying dementia. Hemodynamically stable and the patient is currently on room air oxygen. No other specific events over the past 24 hours. Rest of the medications were reviewed. The patient remains on Keppra for seizure activity and the patient is free of any seizure at this point in time. The patient remains on aspirin. He remains on Seroquel. Dilaudid for pain control to be used on a sodium basis. The patient was also seen by neurology regarding seizure activity and the patient was advised to continue Keppra for now. EEG has been ordered. Unable to perform as the patient was quite restless and agitated and uncooperative. This will be attempted again. Sedation is also being given for normal pressure hydrocephalus. Outpatient neurosurgical evaluation will be done at a later stage. Objective - Vital Signs Vital signs: Vital Signs Temp 97.6 F 01/07/24 11:40 Pulse 99 01/07/24 11:40 Resp 16 01/07/24 11:40 BP 144/76 01/07/24 11:40 Pulse Ox 94 L 01/07/24 11:40 FiO2 Intake & Output 01/06/24 01/07/24 01/07/24 18:59 06:59 18:59 Intake Total 980 490 Output Total 535 Balance 445 490 Weight 85 kg Intake: IV 700 10 Invasive Line 4 10 Sodium Chloride 0.9% 1, 700 000 ml @ 100 mls/hr IV . Q10H [facility] Rx#:[id number] Intake, IV Titration 100 Amount ceFAZolin 2 gm In Sodium 100 Chloride 0.9% 50 ml @ 100 mls/hr IVPB Q8HR [facility] Rx# :[id number] Oral 180 480 Output: Urine 535 Other: Voiding Method Diaper Diaper Diaper # Voids 5 2 2 - Exam GENERAL EXAM: Alert, 68-year-old white male, restless pulling at equipment, moves all 4 extremities, currently on room air oxygen. Calm and comfortable. HEAD: Normocephalic and atraumatic EYES: Normal reaction of pupils, equal size. NOSE: Clear with pink turbinates. THROAT: No erythema or exudates. NECK: No masses, no JVD. CHEST: No chest wall deformity. LUNGS: Equal air entry with diminished lung sounds bilaterally. No crackles, wheeze, rhonchi. No conversational dyspnea or accessory muscle use.. CVS: S1 and S2 normal with no audible murmur, regular rhythm. No extra heart sounds ABDOMEN: No hepatosplenomegaly, active bowel sounds, no guarding or rigidity. SPINE: No scoliosis or deformity SKIN: No rashes CENTRAL NERVOUS SYSTEM: No focal deficits, tone is normal in all 4 extremities. The surgical wound site over the left hip areas are clean and intact. EXTREMITIES: There is no peripheral edema, clubbing, or cyanosis. Peripheral pulses are intact. Left hip incisional dressing is intact. No obvious bleeding or shadowing. - Labs CBC & Chem 7: 01/06/24 05:36 01/06/24 05:36 Labs: Abnormal Lab Results - Last 24 Hours (Table) 01/06/24 01/07/24 01/07/24 Range/Units 18:10 05:46 12:08 POC Glucose (mg/dL) 143 H 123 H 135 H (70-110) mg/dL Assessment and Plan Assessment: Left femoral neck fracture status post left direct anterior hip hemiarthroplasty done on 01/05/2024, surgical wound site is clean and the patient is hemodynamically stable. Fall Chronic dementia with impairment of the cognitive functions, consider the possibility of normal pressure hydrocephalus and outpatient neurosurgical evaluation will be done on the patient for the need for a SPRAY GUN OPERATOR shunt. Breakthrough seizures, currently on IV Keppra, unable to obtain EEG. Acute leukocytosis, likely reactive to surgery, no obvious infectious process identified. Likely reactive. Follow-up white cell count we will obtain for lamont good. Acute hypoxemic respiratory failure, currently on room air oxygen History of COPD, stable History of CVA/TIA History of hyperlipidemia History of hypertension History of diabetes mellitus, type II History of dementia History of seizure activity, not routinely on antiepileptic medications ECF resident Hearing impairment Plan: Respiratory status is stable and the patient is currently on room air oxygen Neurologic functions are stable and the patient is free of any seizures on IV Keppra Continue Seroquel No agitation Attempt another EEG Neurology input is well-appreciated Monitor the white cell count Surgical scar over the left hip area is dry clean and intact Prognosis is guarded secondary to multiple medical comorbidities. Patient is a DO NOT RESUSCITATE/DO NOT INTUBATE. Patient is currently on the medical floor and the patient has been transferred out of the intensive care unit.
--- NOTE | 2024-01-07 18:52 | P.PN ---
Subjective Progress Note Date: 01/07/24 I am following-up with patient and no further seizure-like activity per the nurse. The EEG was attempted again and patient was agitated and restless again when attempting so EEG was aborted. He has sitter at bedside. Objective - Vital Signs Vital signs: Vital Signs Temp 100.4 F H 01/07/24 16:38 Pulse 108 H 01/07/24 16:38 Resp 20 01/07/24 16:38 BP 167/63 01/07/24 16:38 Pulse Ox 94 L 01/07/24 16:38 FiO2 Intake & Output 01/06/24 01/07/24 01/07/24 18:59 06:59 18:59 Intake Total 980 618 Output Total 535 Balance 445 618 Weight 85 kg Intake: IV 700 20 Invasive Line 4 10 Invasive Line 5 10 Sodium Chloride 0.9% 1, 700 000 ml @ 100 mls/hr IV . Q10H [facility] Rx#:[id number] Intake, IV Titration 100 Amount ceFAZolin 2 gm In Sodium 100 Chloride 0.9% 50 ml @ 100 mls/hr IVPB Q8HR [facility] Rx# :[id number] Oral 180 598 Output: Urine 535 Other: Voiding Method Diaper Diaper Diaper # Voids 5 2 3 - Exam General: Lying in bed and does not appear in acute distress. Neuro: Very limited because of cooperation. He was sleeping but would open eyes to verbal stimuli and would not follow commands or respond. Some of the Workup during this hospital visit consisted of: Plasma lactic acid vein was as high as 8.9 during this admission and that has resolved to 1.8 HbA1c: 5.[address] head is reported No acute hemorrhage or mass effect. Similar ventriculomegaly. - Labs CBC & Chem 7: 01/06/24 05:36 01/06/24 05:36 Labs: Abnormal Lab Results - Last 24 Hours (Table) 01/07/24 01/07/24 01/07/24 Range/Units 05:46 12:08 18:15 POC Glucose (mg/dL) 123 H 135 H 132 H (70-110) mg/dL Assessment and Plan Assessment: This is a 68-year-old gentleman with history of advanced dementia, stroke, very hard of hearing, seizure and fall with right femoral neck fracture s/p arthoplasty in 02/[address] Bansal who states new onset seizure and took him off Keppra who presents back to our facility because of fall with left hip pain who was found to have left hip fracture and had arthroplasty on 01/05/2024 who yesterday had episode of confusion which he responded to narcan while on floor and ABG showed metabolic acidosis the overnight while getting CT brain he had tonic-clonic seizure. Breakthrough seizure: Due to not being on antiepileptic drugs---no further seizure. Fall with left hip fracture s/ arthroplasty on 01/05/2024. Fall probable due to seizure vs NPH Had new onset seizure on 02/2023 with fall and had right hip fracture s/p arthroplasty. Possible was taken off antiepileptic drugs possible due to only one seizure. Dilated ventricles on imaging seems possible due to NPH (CT finding same as past) Advance dementia History of stroke Very hard of hearing Hypertension Hyperlipidemia Underlying history of COPD Plan: Continue Keppra 500mg IV every 12 hours. If patient become too agitated with medication will switch to Vimpat 50mg bid. At this time, patient seems to be at baseline. EEG pending. Again was reattempted today but was too agitated and restless so was aborted. The EEG will no roving changer so if no further seizure and continues to be at baseline can be considered as outpatient. Seizure precaution and pads Recommend the patient to follow-up with neurosurgeon as outpatient for this concern of NPH to consider SPARE FIXER shunt. Recommend first as outpatient to obtain large volume tap and if improvement to consider SPARE FIXER shunt. Will defer the rest of medical management to primary team and other specialist. The plan is discussed with his nurse. Time with Patient: Less than 30
[2024-01-07] MEDS: ACETAMINOPHEN TAB 325 MG TAB PO PRN (19:10)
[2024-01-07 21:28] LABS: Basophils % (A) 0 %; Eosinophils # (A) 0.3 k/uL (0-0.7); Eosinophils % (A) 2 %; HCT 39.1 % (39.0-53.0); Lymphocytes # (A) 1.2 k/uL (1.0-4.8); Lymphocytes % (A) 11 %; MCH 32.5 pg (25.0-35.0); MCHC 33.3 g/dL (31.0-37.0); MCV 97.8 fL (80.0-100.0); Monocytes # (A) 1.2 k/uL (0-1.0); Monocytes % (A) 11 %; Neutrophils # (A) 7.5 k/uL (1.3-7.7); Neutrophils % (A) 72 %; Platelet Count 137 k/uL (150-450); RBC 3.99 m/uL (4.30-5.90); RDW 13.5 % (11.5-15.5); WBC 10.4 k/uL (3.8-10.6)
[2024-01-07 23:03] LABS: Glucose,Whole Blood 126 mg/dL (70-110)
[2024-01-08 06:00] LABS: Glucose,Whole Blood 111 mg/dL (70-110)
--- NOTE | 2024-01-08 11:21 | P.PN ---
Subjective Progress Note Date: 01/08/24 Patient was seen this morning at bedtime. According to nursing he is been combative at times but is otherwise doing well. Objective - Vital Signs Vital signs: Vital Signs Temp 99.0 F 01/08/24 09:19 Pulse 97 01/08/24 10:06 Resp 18 01/08/24 10:06 BP 140/65 01/08/24 09:19 Pulse Ox 97 01/08/24 09:19 FiO2 Intake & Output 01/07/24 01/08/24 01/08/24 18:59 06:59 18:59 Intake Total 618 10 0 Balance 618 10 0 Weight 77.5 kg Intake: IV 20 10 Invasive Line 4 10 Invasive Line 5 10 10 Oral 598 0 Other: Voiding Method Diaper Diaper Diaper # Voids 3 1 # Bowel Movements 0 - Exam The patient is resting in bed. He is alert but doesn't respond to questions. Surgical dressing over his left hip was changed. His incision was intact with no drainage. His thigh and calf are soft. - Labs CBC & Chem 7: 01/07/24 20:49 01/06/24 05:36 Labs: Abnormal Lab Results - Last 24 Hours (Table) 01/07/24 01/07/24 01/07/24 Range/Units 12:08 18:15 20:49 RBC 3.99 L (4.30-5.90) m/uL Plt Count 137 L (150-450) k/uL Monocytes # 1.2 H (0-1.0) k/uL POC Glucose (mg/dL) 135 H 132 H (70-110) mg/dL 01/07/24 01/08/24 Range/Units 23:02 05:59 RBC (4.30-5.90) m/uL Plt Count (150-450) k/uL Monocytes # (0-1.0) k/uL POC Glucose (mg/dL) 126 H 111 H (70-110) mg/dL Assessment and Plan Assessment: Postoperative day #3 status post left hip hemiarthroplasty Multiple medical problems Plan: Continue treatment as outlined previously. The patient can weight-bear as tolerated on his left hip. I would encourage mobilization with assistance out of bed into a chair. We've surgical dressing in place. The patient is cleared from an orthopaedic standpoint for discharge back to his extended care facility when medically stable. If medical reasons require a longer hospitalization (more than 1-2 days from today) I'd like to transfer the patient to internal medicine given his multiple medical issues.
[2024-01-08 11:35] LABS: Glucose,Whole Blood 120 mg/dL (70-110)
--- NOTE | 2024-01-08 14:17 | P.PN ---
Subjective Progress Note Date: 01/08/24 patient is 68-year-old gentleman with past medical history significant for hypertension, hyperlipidemia who is currently resident of senior living brought to the ER after a fall. Patient has been having left hip pain for the last 2 days after having a fall couple days ago. Patient denies any chest pain or shortness of breath. There is no complaint of orthopnea or PND. There is no complaint of loss of consciousness. There is no complaint of nausea, vomiting abdominal pain. Initial lab work done in the ER showed WBC 8.2, hemoglobin 15.4, platelet count 155, sodium 137, potassium 5.1, BUN 29, creatinine 1.03, UA negative for any infection EKG done in the ER showed heart rate of 77, no ST segment elevation or depression seen, no T-wave inversions seen. X-ray left hip done showed no acute displaced fracture CT left hip done showed acute nondisplaced fracture throughout the subcapital level of left hip Patient admitted to orthopedic service 01/04. Patient seen and examined. Currently n.p.o., going for procedure today. Complaining of left hip pain 01/05. Patient seen examined. Patient was transferred to ICU for seizure-like activity. Currently back to baseline, answering questions. 01/06. Patient seen and examined. Patient evaluated by neurology, started patient on Keppra. Currently patient out of ICU on stepdown unit. Patient not very compliant with treatment, refused EEG. 01/07. Patient seen and examined. No acute issues overnight. Vital signs stable REVIEW OF SYSTEMS: Review of system cannot be obtained as patient is agitated PHYSICAL EXAMINATION: GENERAL: The patient is alert . Ill looking HEENT: Pupils are round and equally reacting to light. EOMI. No scleral icterus. Bilateral hearing grossly reduced CARDIOVASCULAR: S1 and S2 present. No murmurs, rubs, or gallops. PULMONARY: Chest is clear to auscultation, no wheezing or crackles. ABDOMEN: Soft, nontender, nondistended, normoactive bowel sounds. No palpable organomegaly. MUSCULOSKELETAL: No joint swelling or deformity. Left hip surgical incision seen EXTREMITIES: No cyanosis, clubbing, or pedal edema. NEUROLOGICAL: Gross neurological examination did not reveal any focal deficits. SKIN: No rashes. Assessment and plan Fall Left hip fracture Acute metabolic encephalopathy Seizure-like activity Hypertension Hyperlipidemia BPH Monitor vital signs Monitor CBC Monitor CMP Continue pain management per orthopedics Continue DVT prophylaxis per orthopedics Seizure precautions Continue Keppra Judicious use of pain medication Orthopedic following Neurology following Labs and medication were reviewed.. Continue same treatment. Continue with symptomatic treatment. Resume home medication. Monitor labs and vitals. DVT and GI prophylaxis. Further recommendations as per clinical course of the patient Dictation was produced using [employer] dictation software. please excuse any grammatical, word or spelling errors. Objective - Vital Signs Vital signs: Vital Signs Temp 99.0 F 01/08/24 09:19 Pulse 97 01/08/24 10:06 Resp 18 01/08/24 10:06 BP 140/65 01/08/24 09:19 Pulse Ox 97 01/08/24 09:19 FiO2 Intake & Output 01/07/24 01/08/24 01/08/24 18:59 06:59 18:59 Intake Total 618 10 0 Balance 618 10 0 Weight 77.5 kg Intake: IV 20 10 Invasive Line 4 10 Invasive Line 5 10 10 Oral 598 0 Other: Voiding Method Diaper Diaper Diaper # Voids 3 1 # Bowel Movements 0 - Labs CBC & Chem 7: 01/07/24 20:49 01/06/24 05:36 Labs: Abnormal Lab Results - Last 24 Hours (Table) 01/07/24 01/07/24 01/07/24 Range/Units 12:08 18:15 20:49 RBC 3.99 L (4.30-5.90) m/uL Plt Count 137 L (150-450) k/uL Monocytes # 1.2 H (0-1.0) k/uL POC Glucose (mg/dL) 135 H 132 H (70-110) mg/dL 01/07/24 01/08/24 Range/Units 23:02 05:59 RBC (4.30-5.90) m/uL Plt Count (150-450) k/uL Monocytes # (0-1.0) k/uL POC Glucose (mg/dL) 126 H 111 H (70-110) mg/dL
--- NOTE | 2024-01-08 15:41 | P.PN ---
Subjective Progress Note Date: 01/08/24 I am following-up with patient and no further events overnight. Upon asking him how he was he used his hand and placed it in the middle with small wave. Objective - Vital Signs Vital signs: Vital Signs Temp 98.7 F 01/08/24 11:34 Pulse 107 H 01/08/24 13:36 Resp 18 01/08/24 13:36 BP 138/67 01/08/24 11:34 Pulse Ox 94 L 01/08/24 11:34 FiO2 Intake & Output 01/07/24 01/08/24 01/08/24 18:59 06:59 18:59 Intake Total 618 10 220 Balance 618 10 220 Weight 77.5 kg Intake: IV 20 10 Invasive Line 4 10 Invasive Line 5 10 10 Oral 598 220 Other: Voiding Method Diaper Diaper Diaper # Voids 3 1 # Bowel Movements 0 - Exam General: Lying in bed and does not appear in acute distress. Neuro: Very limited because of cooperation. He is more awake today. He followed minimal simple commands. Not verbalizing. No facial weakness. Motor: Hard to assess since cooperation. But lifted bilateral uppers sponatenously. Some of the Workup during this hospital visit consisted of: Plasma lactic acid vein was as high as 8.9 during this admission and that has resolved to 1.8 HbA1c: 5.[address] head is reported No acute hemorrhage or mass effect. Similar ventriculomegaly. - Labs CBC & Chem 7: 01/07/24 20:49 01/06/24 05:36 Labs: Abnormal Lab Results - Last 24 Hours (Table) 01/07/24 01/07/24 01/07/24 Range/Units 18:15 20:49 23:02 RBC 3.99 L (4.30-5.90) m/uL Plt Count 137 L (150-450) k/uL Monocytes # 1.2 H (0-1.0) k/uL POC Glucose (mg/dL) 132 H 126 H (70-110) mg/dL 01/08/24 01/08/24 Range/Units 05:59 11:34 RBC (4.30-5.90) m/uL Plt Count (150-450) k/uL Monocytes # (0-1.0) k/uL POC Glucose (mg/dL) 111 H 120 H (70-110) mg/dL Assessment and Plan Assessment: This is a 68-year-old gentleman with history of advanced dementia, stroke, very hard of hearing, seizure and fall with right femoral neck fracture s/p arthoplasty in 02/[address] Bansal who states new onset seizure and took him off Keppra who presents back to our facility because of fall with left hip pain who was found to have left hip fracture and had arthroplasty on 01/05/2024 who yesterday had episode of confusion which he responded to narcan while on floor and ABG showed metabolic acidosis the overnight while getting CT brain he had tonic-clonic seizure. Breakthrough seizure: Due to not being on antiepileptic drugs---no further seizure. Fall with left hip fracture s/ arthroplasty on 01/05/2024. Fall probable due to seizure vs NPH Had new onset seizure on 02/2023 with fall and had right hip fracture s/p arthroplasty. Possible was taken off antiepileptic drugs possible due to only one seizure. Dilated ventricles on imaging seems possible due to NPH (CT finding same as past) Advance dementia History of stroke Very hard of hearing Hypertension Hyperlipidemia Underlying history of COPD Plan: Continue Keppra 500mg IV every 12 hours. If patient become too agitated with medication will switch to Vimpat 50mg bid. At this time, patient seems to be at baseline. EEG was attempted twice but uncooperative and agitated so aborted. 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 Seizure precaution and pads Recommend the patient to follow-up with neurosurgeon as outpatient for this concern of NPH to consider EDGE GLUER shunt. Recommend first as outpatient to obtain large volume tap and if improvement to consider EDGE GLUER shunt. Will defer the rest of medical management to primary team and other specialist. The plan is discussed primary attending. Time with Patient: Less than 30
--- NOTE | 2024-01-08 17:00 | P.PN ---
Subjective Progress Note Date: 01/08/24 Patient is 68-year-old white male with past medical history significant for chronic confusion/advanced dementia, frequent falls, previous displaced right subcapital femoral neck fracture and anterior hip hemiarthroplasty. Also, has past medical history of COPD, CVA/TIA, hyperlipidemia, hypertension, diabetes mellitus, and prostate disorder. Patient presented to our emergency department on January 02 from a alf after falling 2 days prior and having left hip pain. CT of the left hip demonstrated acute nondisplaced fracture through the subcapital level of the left hip. Patient did go undergo left direct anterior hip hemiarthroplasty yesterday evening on 01/05/2024. No intraoperative com plications were reported. Patient was initially transferred to the medical surgical unit for recovery. He was found to be minimally responsive, and in A team was called overhead. Did receive a dose of Dilaudid earlier, and responded favorably to Narcan IV push. He did reportedly briefly have some nonpurposeful movements, but no obvious seizure-like activity. Patient also had a ABG consistent with profound metabolic acidosis. With a PO2 of 167, pCO2 of 44, pH of 7.12. I recommended that the patient be worked up in the intensive care unit. On my evaluation, he is alert but it is very difficult to communicate. Patient is hard of hearing and I am told he has some baseline dementia. He can only communicate with written messages. Not particularly in any distress. Left hip incision site appears approximated without any obvious bleeding. On review of patient's medical record, he had a similar presentation approximately 1 year ago following a right femoral neck fracture and hemiarthroplasty. He was worked up by our inpatient neurology group, thought to have an isolated episode of seizure-like activity. Patient is currently not on any antiepileptic medications. He currently does not have any seizure-like activity. Neurological exam is nonfocal. No muscle rigidity. Reportedly received combination of rocuronium, propofol and fentanyl in the operating room. More labs are back. CBC: WBC count 13.5, hemoglobin 14.8, hematocrit 47.6, platelets 143. CMP: Sodium 137, potassium 4.8, chloride 109, serum bicarb 10, BUN 23, creatinine 1.17, glucose 184. Normal saline is infusing at 100 MLS per hour. Lactic acid level was elevated at 6.7. No recent doses of metformin since hospital admission. creatinine kinase 293. There is a indwelling urinary catheter with concentrated urine. Urinalysis reportedly positive for ketones and glucose. Consider euglycemic DKA. He was given a liter of normal saline bolus. No fevers. Tachycardic on bedside monitor, 112 bpm. Blood pressure is 148/98 mmHg. He is on 4 L/min nasal cannula. SpO2 95%. No respiratory distress. No tachypnea. Repeat ABG shows significant improvement in his metabolic acidosis. Seems to be clinically improving back to baseline. On 02/03/2024, the patient is being seen for a follow-up. Patient is stable. The patient has dementia and difficult to communicate with. The patient underwent a left hip hemiarthroplasty on 01/05/2024. Surgical wound is dry clean and intact. No agitation. He does have cognitive impairment related to his underlying dementia. Hemodynamically stable and the patient is currently on room air oxygen. No other specific events over the past 24 hours. Rest of the medications were reviewed. The patient remains on Keppra for seizure activity and the patient is free of any seizure at this point in time. The patient remains on aspirin. He remains on Seroquel. Dilaudid for pain control to be used on a sodium basis. The patient was also seen by neurology regarding seizure activity and the patient was advised to continue Keppra for now. EEG has been ordered. Unable to perform as the patient was quite restless and agitated and uncooperative. This will be attempted again. Sedation is also being given for normal pressure hydrocephalus. Outpatient neurosurgical evaluation will be done at a later stage. On 01/08/2024, the patient is being seen for a follow-up. On room air oxygen. No specific complaints. No significant events overnight. No issues with pain. No fever or chills and the surgical wound site is dry clean and intact. No new labs are available from today. Neurology is on the case. The patient remains on Keppra 500 mg IV every 12 hours and there is no further evidence of seizure activity. He remains on Seroquel 50 mg p.o. twice a day and 100 mg at bedtime. Remains on aspirin. Remains on [place] for pain control. Objective - Vital Signs Vital signs: Vital Signs Temp 99.0 F 01/08/24 09:19 Pulse 97 01/08/24 10:06 Resp 18 01/08/24 10:06 BP 140/65 01/08/24 09:19 Pulse Ox 97 01/08/24 09:19 FiO2 Intake & Output 01/07/24 01/08/24 01/08/24 18:59 06:59 18:59 Intake Total 618 10 0 Balance 618 10 0 Weight 77.5 kg Intake: IV 20 10 Invasive Line 4 10 Invasive Line 5 10 10 Oral 598 0 Other: Voiding Method Diaper Diaper Diaper # Voids 3 1 # Bowel Movements 0 - Exam GENERAL EXAM: Alert, 68-year-old white male, restless pulling at equipment, moves all 4 extremities, currently on room air oxygen. Calm and comfortable. HEAD: Normocephalic and atraumatic EYES: Normal reaction of pupils, equal size. NOSE: Clear with pink turbinates. THROAT: No erythema or exudates. NECK: No masses, no JVD. CHEST: No chest wall deformity. LUNGS: Equal air entry with diminished lung sounds bilaterally. No crackles, wheeze, rhonchi. No conversational dyspnea or accessory muscle use.. CVS: S1 and S2 normal with no audible murmur, regular rhythm. No extra heart sounds ABDOMEN: No hepatosplenomegaly, active bowel sounds, no guarding or rigidity. SPINE: No scoliosis or deformity SKIN: No rashes CENTRAL NERVOUS SYSTEM: No focal deficits, tone is normal in all 4 extremities. The surgical wound site over the left hip areas are clean and intact. EXTREMITIES: There is no peripheral edema, clubbing, or cyanosis. Peripheral pulses are intact. Left hip incisional dressing is intact. No obvious bleeding or shadowing. - Labs CBC & Chem 7: 01/07/24 20:49 01/06/24 05:36 Labs: Abnormal Lab Results - Last 24 Hours (Table) 01/07/24 01/07/24 01/07/24 Range/Units 12:08 18:15 20:49 RBC 3.99 L (4.30-5.90) m/uL Plt Count 137 L (150-450) k/uL Monocytes # 1.2 H (0-1.0) k/uL POC Glucose (mg/dL) 135 H 132 H (70-110) mg/dL 01/07/24 01/08/24 Range/Units 23:02 05:59 RBC (4.30-5.90) m/uL Plt Count (150-450) k/uL Monocytes # (0-1.0) k/uL POC Glucose (mg/dL) 126 H 111 H (70-110) mg/dL Assessment and Plan Assessment: Left femoral neck fracture status post left direct anterior hip hemiarthroplasty done on 01/05/2024, surgical wound site is clean and the patient is hemody namically stable. Fall Chronic dementia with impairment of the cognitive functions, consider the p ossibility of normal pressure hydrocephalus and outpatient neurosurgical evaluation will be done on the patient for the need for a STRATEGIC MARKETING ASSOCIATE shunt. Breakthrough seizures, currently on IV Keppra, unable to obtain EEG. The patient is currently free of any seizures and neurology is on the case Acute leukocytosis, likely reactive to surgery, no obvious infectious process identified. Likely reactive. Follow-up white cell count we will obtain for tomorrow. Acute hypoxemic respiratory failure, currently on room air oxygen History of COPD, stable History of CVA/TIA History of hyperlipidemia History of hypertension History of diabetes mellitus, type II History of dementia History of seizure activity, not routinely on antiepileptic medications ECF resident Hearing impairment Plan: Respiratory status is stable and the patient is currently on room air oxygen Neurologic functions are stable and the patient is free of any seizures on IV Keppra 500 mg IV every 12 hours Continue Seroquel 50 mg p.o. twice daily and 100 mg at bedtime No agitation Neurology input is well-appreciated Monitor the white cell count Surgical scar over the left hip area is dry clean and intact Prognosis is guarded secondary to multiple medical comorbidities. Patient is a DO NOT RESUSCITATE/DO NOT INTUBATE.
[2024-01-08 18:15] LABS: Glucose,Whole Blood 114 mg/dL (70-110)
[2024-01-08 20:16] LABS: Glucose,Whole Blood 116 mg/dL (70-110)
[2024-01-09 00:29] LABS: Glucose,Whole Blood 111 mg/dL (70-110)
[2024-01-09 06:31] LABS: Glucose,Whole Blood 124 mg/dL (70-110)
[2024-01-09 12:07] LABS: Glucose,Whole Blood 145 mg/dL (70-110)
--- NOTE | 2024-01-09 13:26 | P.PN ---
Subjective Progress Note Date: 01/09/24 Per the nurse he is at baseline. The EEG attempted to perform the EEG but got agitated so it was aborted. Objective - Vital Signs Vital signs: Vital Signs Temp 97.9 F 01/09/24 10:50 Pulse 106 H 01/09/24 10:50 Resp 18 01/09/24 10:50 BP 156/81 01/09/24 10:50 Pulse Ox 93 L 01/09/24 10:50 FiO2 Intake & Output 01/08/24 01/09/24 01/09/24 18:59 06:59 18:59 Intake Total 440 Balance 440 Weight 83.5 kg Intake: Oral 440 Other: Voiding Method Diaper Diaper Diaper # Voids 1 1 1 # Bowel Movements 1 - Exam General: Lying in bed and does not appear in acute distress. Neuro: Very limited because of cooperation. He is more awake today. He followed minimal simple commands. Not verbalizing. No facial weakness. Motor: Hard to assess since cooperation. But lifted bilateral uppers sponatenously. Some of the Workup during this hospital visit consisted of: Plasma lactic acid vein was as high as 8.9 during this admission and that has resolved to 1.8 HbA1c: 5.[address] head is reported No acute hemorrhage or mass effect. Similar ventriculomegaly. - Labs CBC & Chem 7: 01/07/24 20:49 01/06/24 05:36 Labs: Abnormal Lab Results - Last 24 Hours (Table) 01/08/24 01/08/24 01/09/24 Range/Units 18:14 20:14 00:28 POC Glucose (mg/dL) 114 H 116 H 111 H (70-110) mg/dL 01/09/24 01/09/24 Range/Units 06:28 12:06 POC Glucose (mg/dL) 124 H 145 H (70-110) mg/dL Assessment and Plan Assessment: This is a 68-year-old gentleman with history of advanced dementia, stroke, very hard of hearing, seizure and fall with right femoral neck fracture s/p arthoplasty in 02/[address] Bansal who states new onset seizure and took him off Keppra who presents back to our facility because of fall with left hip pain who was found to have left hip fracture and had arthroplasty on 01/05/2024 who yesterday had episode of confusion which he responded to narcan while on floor and ABG showed metabolic acidosis the overnight while getting CT brain he had tonic-clonic seizure. Breakthrough seizure: Due to not being on antiepileptic drugs---no further seizure. Fall with left hip fracture s/ arthroplasty on 01/05/2024. Fall probable due to seizure vs NPH Had new onset seizure on 02/2023 with fall and had right hip fracture s/p arthroplasty. Possible was taken off antiepileptic drugs possible due to only one seizure. Dilated ventricles on imaging seems possible due to NPH (CT finding same as past) Advance dementia History of stroke Very hard of hearing Hypertension Hyperlipidemia Underlying history of COPD Plan: Continue Keppra 500mg IV every 12 hours. If patient become too agitated with medication will switch to Vimpat 50mg bid. At this time, patient seems to be at baseline. EEG was attempted three time during this admission but uncooperative and agitated so aborted. The EEG will no spinning frame changer so if no further seizure and continues to be at baseline can be considered as outpatient. Seizure precaution and pads Recommend the patient to follow-up with neurosurgeon as outpatient for this concern of NPH to consider WIRE LOOP MACHINE OPERATOR shunt. Recommend first as outpatient to obtain large volume tap and if improvement to consider WIRE LOOP MACHINE OPERATOR shunt. Will defer the rest of medical management to primary team and other specialist. The plan is discussed with his nurse. There is no further neurological work-up. Will sign off. Please reconsult if needed. Time with Patient: Less than 30
--- NOTE | 2024-01-09 13:55 | P.PN ---
Subjective Progress Note Date: 01/09/24 patient is 68-year-old gentleman with past medical history significant for hypertension, hyperlipidemia who is currently resident of [facility] brought to the ER after a fall. Patient has been having left hip pain for the last 2 days after having a fall couple days ago. Patient denies any chest pain or shortness of breath. There is no complaint of orthopnea or PND. There is no complaint of loss of consciousness. There is no complaint of nausea, vomiting abdominal pain. Initial lab work done in the ER showed WBC 8.2, hemoglobin 15.4, platelet count 155, sodium 137, potassium 5.1, BUN 29, creatinine 1.03, UA negative for any infection EKG done in the ER showed heart rate of 77, no ST segment elevation or depression seen, no T-wave inversions seen. X-ray left hip done showed no acute displaced fracture CT left hip done showed acute nondisplaced fracture throughout the subcapital level of left hip Patient admitted to orthopedic service 01/04. Patient seen and examined. Currently n.p.o., going for procedure today. Complaining of left hip pain 01/05. Patient seen examined. Patient was transferred to ICU for seizure-like activity. Currently back to baseline, answering questions. 01/06. Patient seen and examined. Patient evaluated by neurology, started patient on Keppra. Currently patient out of ICU on stepdown unit. Patient not very compliant with treatment, refused EEG. 01/07. Patient seen and examined. No acute issues overnight. Vital signs stable 01/08. Patient seen and examined. No episode of seizure-like activity. EEG could not be completed, neurology recommended keeping patient on Keppra. REVIEW OF SYSTEMS: Review of system cannot be obtained as patient is agitated PHYSICAL EXAMINATION: GENERAL: The patient is alert . Ill looking HEENT: Pupils are round and equally reacting to light. EOMI. No scleral icterus. Bilateral hearing grossly reduced CARDIOVASCULAR: S1 and S2 present. No murmurs, rubs, or gallops. PULMONARY: Chest is clear to auscultation, no wheezing or crackles. ABDOMEN: Soft, nontender, nondistended, normoactive bowel sounds. No palpable organomegaly. MUSCULOSKELETAL: No joint swelling or deformity. Left hip surgical incision seen EXTREMITIES: No cyanosis, clubbing, or pedal edema. NEUROLOGICAL: Gross neurological examination did not reveal any focal deficits. SKIN: No rashes. Assessment and plan Fall Left hip fracture Acute metabolic encephalopathy Seizure-like activity Hypertension Hyperlipidemia BPH Monitor vital signs Monitor CBC Monitor CMP Continue pain management per orthopedics Continue DVT prophylaxis per orthopedics Seizure precautions Continue Keppra Judicious use of pain medication Orthopedic following Neurology following, do not recommend further attempts for EEG to be done, recommend outpatient follow Labs and medication were reviewed.. Continue same treatment. Continue with symptomatic treatment. Resume home medication. Monitor labs and vitals. DVT and GI prophylaxis. Further recommendations as per clinical course of the patient Dictation was produced using [email or web address] dictation software. please excuse any grammatical, word or spelling errors. Objective - Vital Signs Vital signs: Vital Signs Temp 97.9 F 01/09/24 10:50 Pulse 106 H 01/09/24 10:50 Resp 18 01/09/24 10:50 BP 156/81 01/09/24 10:50 Pulse Ox 93 L 01/09/24 10:50 FiO2 Intake & Output 01/08/24 01/09/24 01/09/24 18:59 06:59 18:59 Intake Total 440 Balance 440 Weight 83.5 kg Intake: Oral 440 Other: Voiding Method Diaper Diaper Diaper # Voids 1 1 1 # Bowel Movements 1 - Labs CBC & Chem 7: 01/07/24 20:49 01/06/24 05:36 Labs: Abnormal Lab Results - Last 24 Hours (Table) 01/08/24 01/08/24 01/09/24 Range/Units 18:14 20:14 00:28 POC Glucose (mg/dL) 114 H 116 H 111 H (70-110) mg/dL 01/09/24 01/09/24 Range/Units 06:28 12:06 POC Glucose (mg/dL) 124 H 145 H (70-110) mg/dL
--- NOTE | 2024-01-09 14:42 | P.PN ---
Subjective Progress Note Date: 01/09/24 Patient is 68-year-old white male with past medical history significant for chronic confusion/advanced dementia, frequent falls, previous displaced right subcapital femoral neck fracture and anterior hip hemiarthroplasty. Also, has past medical history of COPD, CVA/TIA, hyperlipidemia, hypertension, diabetes mellitus, and prostate disorder. Patient presented to our emergency department on January 02 from a snf after falling 2 days prior and having left hip pain. CT of the left hip demonstrated acute nondisplaced fracture through the subcapital level of the left hip. Patient did go undergo left direct anterior hip hemiarthroplasty yesterday evening on 01/05/2024. No intraoperative com plications were reported. Patient was initially transferred to the medical surgical unit for recovery. He was found to be minimally responsive, and in A team was called overhead. Did receive a dose of Dilaudid earlier, and responded favorably to Narcan IV push. He did reportedly briefly have some nonpurposeful movements, but no obvious seizure-like activity. Patient also had a ABG consistent with profound metabolic acidosis. With a PO2 of 167, pCO2 of 44, pH of 7.12. I recommended that the patient be worked up in the intensive care unit. On my evaluation, he is alert but it is very difficult to communicate. Patient is hard of hearing and I am told he has some baseline dementia. He can only communicate with written messages. Not particularly in any distress. Left hip incision site appears approximated without any obvious bleeding. On review of patient's medical record, he had a similar presentation approximately 1 year ago following a right femoral neck fracture and hemiarthroplasty. He was worked up by our inpatient neurology group, thought to have an isolated episode of seizure-like activity. Patient is currently not on any antiepileptic medications. He currently does not have any seizure-like activity. Neurological exam is nonfocal. No muscle rigidity. Reportedly received combination of rocuronium, propofol and fentanyl in the operating room. More labs are back. CBC: WBC count 13.5, hemoglobin 14.8, hematocrit 47.6, platelets 143. CMP: Sodium 137, potassium 4.8, chloride 109, serum bicarb 10, BUN 23, creatinine 1.17, glucose 184. Normal saline is infusing at 100 MLS per hour. Lactic acid level was elevated at 6.7. No recent doses of metformin since hospital admission. creatinine kinase 293. There is a indwelling urinary catheter with concentrated urine. Urinalysis reportedly positive for ketones and glucose. Consider euglycemic DKA. He was given a liter of normal saline bolus. No fevers. Tachycardic on bedside monitor, 112 bpm. Blood pressure is 148/98 mmHg. He is on 4 L/min nasal cannula. SpO2 95%. No respiratory distress. No tachypnea. Repeat ABG shows significant improvement in his metabolic acidosis. Seems to be clinically improving back to baseline. On 02/03/2024, the patient is being seen for a follow-up. Patient is stable. The patient has dementia and difficult to communicate with. The patient underwent a left hip hemiarthroplasty on 01/05/2024. Surgical wound is dry clean and intact. No agitation. He does have cognitive impairment related to his underlying dementia. Hemodynamically stable and the patient is currently on room air oxygen. No other specific events over the past 24 hours. Rest of the medications were reviewed. The patient remains on Keppra for seizure activity and the patient is free of any seizure at this point in time. The patient remains on aspirin. He remains on Seroquel. Dilaudid for pain control to be used on a sodium basis. The patient was also seen by neurology regarding seizure activity and the patient was advised to continue Keppra for now. EEG has been ordered. Unable to perform as the patient was quite restless and agitated and uncooperative. This will be attempted again. Sedation is also being given for normal pressure hydrocephalus. Outpatient neurosurgical evaluation will be done at a later stage. On 01/08/2024, the patient is being seen for a follow-up. On room air oxygen. No specific complaints. No significant events overnight. No issues with pain. No fever or chills and the surgical wound site is dry clean and intact. No new labs are available from today. Neurology is on the case. The patient remains on Keppra 500 mg IV every 12 hours and there is no further evidence of seizure activity. He remains on Seroquel 50 mg p.o. twice a day and 100 mg at bedtime. Remains on aspirin. Remains on [place] for pain control. On 01/09/2024, the patient is being seen for a follow-up. The patient is calm and comfortable. No significant complaints. No significant issues overnight. Surgical incisions are clean and intact. Resting comfortably in bed. Suffers from advanced dementia. Maintains on Seroquel to milligrams twice a day and 100 mg overnight. No seizure activity has been noted and the patient remains on Keppra. Rest of the medications remain unchanged. Objective - Vital Signs Vital signs: Vital Signs Temp 97.4 F L 01/09/24 08:40 Pulse 110 H 01/09/24 08:40 Resp 18 01/09/24 08:40 BP 152/57 01/09/24 08:40 Pulse Ox 94 L 01/09/24 08:40 FiO2 Intake & Output 01/08/24 01/09/24 01/09/24 18:59 06:59 18:59 Intake Total 440 Balance 440 Weight 83.5 kg Intake: Oral 440 Other: Voiding Method Diaper Diaper Diaper # Voids 1 1 1 # Bowel Movements 1 - Exam GENERAL EXAM: Alert, 68-year-old white male, restless pulling at equipment, moves all 4 extremities, currently on room air oxygen. Calm and comfortable. HEAD: Normocephalic and atraumatic EYES: Normal reaction of pupils, equal size. NOSE: Clear with pink turbinates. THROAT: No erythema or exudates. NECK: No masses, no JVD. CHEST: No chest wall deformity. LUNGS: Equal air entry with diminished lung sounds bilaterally. No crackles, wheeze, rhonchi. No conversational dyspnea or accessory muscle use.. CVS: S1 and S2 normal with no audible murmur, regular rhythm. No extra heart sounds ABDOMEN: No hepatosplenomegaly, active bowel sounds, no guarding or rigidity. SPINE: No scoliosis or deformity SKIN: No rashes CENTRAL NERVOUS SYSTEM: No focal deficits, tone is normal in all 4 extremities. The surgical wound site over the left hip areas are clean and intact. EXTREMITIES: There is no peripheral edema, clubbing, or cyanosis. Peripheral pulses are intact. Left hip incisional dressing is intact. No obvious bleeding or shadowing. - Labs CBC & Chem 7: 01/07/24 20:49 01/06/24 05:36 Labs: Abnormal Lab Results - Last 24 Hours (Table) 01/08/24 01/08/24 01/08/24 Range/Units 11:34 18:14 20:14 POC Glucose (mg/dL) 120 H 114 H 116 H (70-110) mg/dL 01/09/24 01/09/24 Range/Units 00:28 06:28 POC Glucose (mg/dL) 111 H 124 H (70-110) mg/dL Assessment and Plan Assessment: Left femoral neck fracture status post left direct anterior hip hemiarthroplasty done on 01/05/2024, surgical wound site is clean and the patient is hemodynamically stable. Fall Chronic dementia with impairment of the cognitive functions, consider the possibility of normal pressure hydrocephalus and outpatient neurosurgical evaluation will be done on the patient for the need for a ASSISTANT CHILD CARE TEACHER shunt. Breakthrough seizures, currently on IV Keppra, unable to obtain EEG. The ankit ent is currently free of any seizures and neurology is on the case Acute leukocytosis, likely reactive to surgery, no obvious infectious process identified. Likely reactive. Follow-up white cell count we will obtain for tomorrow. Acute hypoxemic respiratory failure, currently on room air oxygen History of COPD, stable History of CVA/TIA History of hyperlipidemia History of hypertension History of diabetes mellitus, type II History of dementia History of seizure activity, not routinely on antiepileptic medications ECF resident Hearing impairment Plan: Clinically stable and unchanged compared to yesterday and the patient remains on room air oxygen. No seizure activity has been noted. Neurologic functions are stable and the patient is free of any seizures on IV Keppra 500 mg IV every 12 hours Continue Seroquel 50 mg p.o. twice daily and 100 mg at bedtime No agitation Neurology input is well-appreciated Monitor the white cell count Surgical scar over the left hip area is dry clean and intact Prognosis is guarded secondary to multiple medical comorbidities. Patient is a DO NOT RESUSCITATE/DO NOT INTUBATE.
--- NOTE | 2024-01-09 17:04 | P.PN ---
Subjective No acute events per nursing Objective - Vital Signs Vital signs: Vital Signs Temp 98.5 F 01/09/24 14:35 Pulse 106 H 01/09/24 14:35 Resp 18 01/09/24 14:35 BP 132/68 01/09/24 14:35 Pulse Ox 93 L 01/09/24 14:35 FiO2 Intake & Output 01/08/24 01/09/24 01/09/24 18:59 06:59 18:59 Intake Total 440 Balance 440 Weight 83.5 kg Intake: Oral 440 Other: Voiding Method Diaper Diaper Diaper # Voids 1 1 2 # Bowel Movements 1 - Exam Patient is resting in bed. Dressing over the anterior aspect of his left hip is intact. Calf are soft. - Labs CBC & Chem 7: 01/07/24 20:49 01/06/24 05:36 Labs: Abnormal Lab Results - Last 24 Hours (Table) 01/08/24 01/08/24 01/09/24 Range/Units 18:14 20:14 00:28 POC Glucose (mg/dL) 114 H 116 H 111 H (70-110) mg/dL 01/09/24 01/09/24 Range/Units 06:28 12:06 POC Glucose (mg/dL) 124 H 145 H (70-110) mg/dL Assessment and Plan Assessment: Postoperative day #4 status post left hip hemiarthroplasty for femoral neck fracture Multiple medical problems Plan: The patient is stable from an orthopedic standpoint. Due to the patient's multiple medical problems we will transfer care to internal medicine. The patient is clear for discharge from an orthopedic standpoint.
[2024-01-09 17:14] LABS: Glucose,Whole Blood 133 mg/dL (70-110)
[2024-01-10 00:18] LABS: Glucose,Whole Blood 131 mg/dL (70-110)
[2024-01-10 01:00] LABS: Glucose,Whole Blood 130 mg/dL (70-110)
[2024-01-10 06:11] LABS: Glucose,Whole Blood 127 mg/dL (70-110)
--- NOTE | 2024-01-10 09:13 | P.PN ---
Progress Note - Text No acute issues. Patient is back to his baseline. Weight bear as tolerated on the left lower extremity. Up with assistance. Leave surgical dressing in place. The patient is okay to discharge from an orthopedic standpoint.
[2024-01-10 12:18] LABS: Glucose,Whole Blood 135 mg/dL (70-110)
--- NOTE | 2024-01-10 12:24 | P.PN ---
Subjective Progress Note Date: 01/10/24 Patient is 68-year-old white male with past medical history significant for chronic confusion/advanced dementia, frequent falls, previous displaced right subcapital femoral neck fracture and anterior hip hemiarthroplasty. Also, has past medical history of COPD, CVA/TIA, hyperlipidemia, hypertension, diabetes mellitus, and prostate disorder. Patient presented to our emergency department on January 02 from a intermediate after falling 2 days prior and having left hip pain. CT of the left hip demonstrated acute nondisplaced fracture through the subcapital level of the left hip. Patient did go undergo left direct anterior hip hemiarthroplasty yesterday evening on 01/05/2024. No intraoperative com plications were reported. Patient was initially transferred to the medical surgical unit for recovery. He was found to be minimally responsive, and in A team was called overhead. Did receive a dose of Dilaudid earlier, and responded favorably to Narcan IV push. He did reportedly briefly have some nonpurposeful movements, but no obvious seizure-like activity. Patient also had a ABG consistent with profound metabolic acidosis. With a PO2 of 167, pCO2 of 44, pH of 7.12. I recommended that the patient be worked up in the intensive care unit. On my evaluation, he is alert but it is very difficult to communicate. Patient is hard of hearing and I am told he has some baseline dementia. He can only communicate with written messages. Not particularly in any distress. Left hip incision site appears approximated without any obvious bleeding. On review of patient's medical record, he had a similar presentation approximately 1 year ago following a right femoral neck fracture and hemiarthroplasty. He was worked up by our inpatient neurology group, thought to have an isolated episode of seizure-like activity. Patient is currently not on any antiepileptic medications. He currently does not have any seizure-like activity. Neurological exam is nonfocal. No muscle rigidity. Reportedly received combination of rocuronium, propofol and fentanyl in the operating room. More labs are back. CBC: WBC count 13.5, hemoglobin 14.8, hematocrit 47.6, platelets 143. CMP: Sodium 137, potassium 4.8, chloride 109, serum bicarb 10, BUN 23, creatinine 1.17, glucose 184. Normal saline is infusing at 100 MLS per hour. Lactic acid level was elevated at 6.7. No recent doses of metformin since hospital admission. creatinine kinase 293. There is a indwelling urinary catheter with concentrated urine. Urinalysis reportedly positive for ketones and glucose. Consider euglycemic DKA. He was given a liter of normal saline bolus. No fevers. Tachycardic on bedside monitor, 112 bpm. Blood pressure is 148/98 mmHg. He is on 4 L/min nasal cannula. SpO2 95%. No respiratory distress. No tachypnea. Repeat ABG shows significant improvement in his metabolic acidosis. Seems to be clinically improving back to baseline. On 02/03/2024, the patient is being seen for a follow-up. Patient is stable. The patient has dementia and difficult to communicate with. The patient underwent a left hip hemiarthroplasty on 01/05/2024. Surgical wound is dry clean and intact. No agitation. He does have cognitive impairment related to his underlying dementia. Hemodynamically stable and the patient is currently on room air oxygen. No other specific events over the past 24 hours. Rest of the medications were reviewed. The patient remains on Keppra for seizure activity and the patient is free of any seizure at this point in time. The patient remains on aspirin. He remains on Seroquel. Dilaudid for pain control to be used on a sodium basis. The patient was also seen by neurology regarding seizure activity and the patient was advised to continue Keppra for now. EEG has been ordered. Unable to perform as the patient was quite restless and agitated and uncooperative. This will be attempted again. Sedation is also being given for normal pressure hydrocephalus. Outpatient neurosurgical evaluation will be done at a later stage. On 01/08/2024, the patient is being seen for a follow-up. On room air oxygen. No specific complaints. No significant events overnight. No issues with pain. No fever or chills and the surgical wound site is dry clean and intact. No new labs are available from today. Neurology is on the case. The patient remains on Keppra 500 mg IV every 12 hours and there is no further evidence of seizure activity. He remains on Seroquel 50 mg p.o. twice a day and 100 mg at bedtime. Remains on aspirin. Remains on [place] for pain control. On 01/09/2024, the patient is being seen for a follow-up. The patient is calm and comfortable. No significant complaints. No significant issues overnight. Surgical incisions are clean and intact. Resting comfortably in bed. Suffers from advanced dementia. Maintains on Seroquel to milligrams twice a day and 100 mg overnight. No seizure activity has been noted and the patient remains on Keppra. Rest of the medications remain unchanged. 01/10/2024, clinical status is stable and unchanged compared to yesterday. No significant events overnight. Patient is calm and comfortable. Resting comfortably in bed. Surgical wound is dry clean and intact. Tolerating his diet. No other significant events overnight. Objective - Vital Signs Vital signs: Vital Signs Temp 98.0 F 01/10/24 07:05 Pulse 90 01/10/24 07:05 Resp 18 01/10/24 07:05 BP 112/72 01/10/24 07:05 Pulse Ox 96 01/10/24 07:05 FiO2 Intake & Output 01/09/24 01/10/24 01/10/24 18:59 06:59 18:59 Intake Total 100 Balance 100 Intake: Oral 100 Other: Voiding Method Diaper Diaper # Voids 2 2 # Bowel Movements 1 - Exam GENERAL EXAM: Alert, 68-year-old white male, restless pulling at equipment, moves all 4 extremities, currently on room air oxygen. Calm and comfortable. HEAD: Normocephalic and atraumatic EYES: Normal reaction of pupils, equal size. NOSE: Clear with pink turbinates. THROAT: No erythema or exudates. NECK: No masses, no JVD. CHEST: No chest wall deformity. LUNGS: Equal air entry with diminished lung sounds bilaterally. No crackles, wheeze, rhonchi. No conversational dyspnea or accessory muscle use.. CVS: S1 and S2 normal with no audible murmur, regular rhythm. No extra heart sounds ABDOMEN: No hepatosplenomegaly, active bowel sounds, no guarding or rigidity. SPINE: No scoliosis or deformity SKIN: No rashes CENTRAL NERVOUS SYSTEM: No focal deficits, tone is normal in all 4 extremities. The surgical wound site over the left hip areas are clean and intact. EXTREMITIES: There is no peripheral edema, clubbing, or cyanosis. Peripheral pulses are intact. Left hip incisional dressing is intact. No obvious bleeding or shadowing. - Labs CBC & Chem 7: 01/07/24 20:49 01/06/24 05:36 Labs: Abnormal Lab Results - Last 24 Hours (Table) 01/09/24 01/09/24 01/10/24 Range/Units 12:06 17:12 00:17 POC Glucose (mg/dL) 145 H 133 H 131 H (70-110) mg/dL 01/10/24 01/10/24 Range/Units 00:58 06:10 POC Glucose (mg/dL) 130 H 127 H (70-110) mg/dL Assessment and Plan Assessment: Left femoral neck fracture status post left direct anterior hip hemiarthroplasty done on 01/05/2024, surgical wound site is clean and the patient is hemodynamically stable. Fall Chronic dementia with impairment of the cognitive functions, consider the possibility of normal pressure hydrocephalus and outpatient neurosurgical maria d luation will be done on the patient for the need for a MOONER shunt. Breakthrough seizures, currently on IV Keppra, unable to obtain EEG. The patient is currently free of any seizures and neurology is on the case Acute leukocytosis, likely reactive to surgery, no obvious infectious process identified. Likely reactive. Follow-up white cell count we will obtain for tomorrow. Acute hypoxemic respiratory failure, currently on room air oxygen History of COPD, stable History of CVA/TIA History of hyperlipidemia History of hypertension History of diabetes mellitus, type II History of dementia History of seizure activity, not routinely on antiepileptic medications ECF resident Hearing impairment Plan: Clinically stable and the patient should be able to get discharged if cleared by orthopedic surgery. No seizure activity Neurologic functions are stable and the patient is free of any seizures on IV Keppra 500 mg IV every 12 hours, this can be switched to oral Keppra. Continue Seroquel 50 mg p.o. twice daily and 100 mg at bedtime No agitation Neurology input is well-appreciated Monitor the white cell count Surgical scar over the left hip area is dry clean and intact Prognosis is guarded secondary to multiple medical comorbidities. Patient is a DO NOT RESUSCITATE/DO NOT INTUBATE.
[2024-01-10 12:40] VITALS: BMI 25.0
--- NOTE | 2024-01-10 14:13 | P.PN ---
Subjective Progress Note Date: 01/10/24 patient is 68-year-old gentleman with past medical history significant for hypertension, hyperlipidemia who is [facility] after a fall. Patient has been having left hip pain for the last 2 days after having a fall couple days ago. Patient denies any chest pain or shortness of breath. There is no complaint of orthopnea or PND. There is no complaint of loss of consciousness. There is no complaint of nausea, vomiting abdominal pain. Initial lab work done in the ER showed WBC 8.2, hemoglobin 15.4, platelet count 155, sodium 137, potassium 5.1, BUN 29, creatinine 1.03, UA negative for any infection EKG done in the ER showed heart rate of 77, no ST segment elevation or depression seen, no T-wave inversions seen. X-ray left hip done showed no acute displaced fracture CT left hip done showed acute nondisplaced fracture throughout the subcapital level of left hip Patient admitted to orthopedic service 01/04. Patient seen and examined. Currently n.p.o., going for procedure today. Complaining of left hip pain 01/05. Patient seen examined. Patient was transferred to ICU for seizure-like activity. Currently back to baseline, answering questions. 01/06. Patient seen and examined. Patient evaluated by neurology, started patient on Keppra. Currently patient out of ICU on stepdown unit. Patient not very compliant with treatment, refused EEG. 01/07. Patient seen and examined. No acute issues overnight. Vital signs stable 01/08. Patient seen and examined. No episode of seizure-like activity. EEG could not be completed, neurology recommended keeping patient on Keppra. 01/09. Patient seen and examined. Patient medically stable for discharge to [facility] facility REVIEW OF SYSTEMS: Review of system cannot be obtained as patient is agitated PHYSICAL EXAMINATION: GENERAL: The patient is alert . Ill looking HEENT: Pupils are round and equally reacting to light. EOMI. No scleral icterus. Bilateral hearing grossly reduced CARDIOVASCULAR: S1 and S2 present. No murmurs, rubs, or gallops. PULMONARY: Chest is clear to auscultation, no wheezing or crackles. ABDOMEN: Soft, nontender, nondistended, normoactive bowel sounds. No palpable organomegaly. MUSCULOSKELETAL: No joint swelling or deformity. Left hip surgical incision seen EXTREMITIES: No cyanosis, clubbing, or pedal edema. NEUROLOGICAL: Gross neurological examination did not reveal any focal deficits. SKIN: No rashes. Assessment and plan Fall Left hip fracture Acute metabolic encephalopathy Seizure-like activity Hypertension Hyperlipidemia BPH Monitor vital signs Monitor CBC Monitor CMP Continue pain management per orthopedics Continue DVT prophylaxis per orthopedics Seizure precautions Continue Keppra Judicious use of pain medication Orthopedic following Neurology following, do not recommend further attempts for EEG to be done, recommend outpatient follow Labs and medication were reviewed.. Continue same treatment. Continue with symptomatic treatment. Resume home medication. Monitor labs and vitals. DVT and GI prophylaxis. Further recommendations as per clinical course of the patient Dictation was produced using [employer] dictation software. please excuse any grammatical, word or spelling errors. Objective - Vital Signs Vital signs: Vital Signs Temp 98.0 F 01/10/24 07:05 Pulse 90 01/10/24 07:25 Resp 18 01/10/24 07:25 BP 112/72 01/10/24 07:05 Pulse Ox 96 01/10/24 07:05 FiO2 Intake & Output 01/09/24 01/10/24 01/10/24 18:59 06:59 18:59 Intake Total 100 Balance 100 Weight 83.5 kg Intake: Oral 100 Other: Voiding Method Diaper Diaper Diaper # Voids 2 2 # Bowel Movements 1 - Labs CBC & Chem 7: 01/07/24 20:49 01/06/24 05:36 Labs: Abnormal Lab Results - Last 24 Hours (Table) 01/09/24 01/10/24 01/10/24 Range/Units 17:12 00:17 00:58 POC Glucose (mg/dL) 133 H 131 H 130 H (70-110) mg/dL 01/10/24 01/10/24 Range/Units 06:10 12:15 POC Glucose (mg/dL) 127 H 135 H (70-110) mg/dL
[2024-01-10 16:45] LABS: Glucose,Whole Blood 136 mg/dL (70-110)
[2024-01-10 20:45] LABS: Glucose,Whole Blood 214 mg/dL (70-110)
[2024-01-11 05:56] LABS: Glucose,Whole Blood 114 mg/dL (70-110)
--- NOTE | 2024-01-11 08:37 | P.PN ---
Progress Note - Text No acute events. Continue treatment as outlined. Discharge planning process.
[2024-01-11 11:22] LABS: Glucose,Whole Blood 146 mg/dL (70-110)
--- NOTE | 2024-01-11 12:41 | P.PN ---
Subjective Progress Note Date: 01/11/24 Patient is 68-year-old white male with past medical history significant for chronic confusion/advanced dementia, frequent falls, previous displaced right subcapital femoral neck fracture and anterior hip hemiarthroplasty. Also, has past medical history of COPD, CVA/TIA, hyperlipidemia, hypertension, diabetes mellitus, and prostate disorder. Patient presented to our emergency department on January 02 from a [place] [facility] after falling 2 days prior and having left hip pain. CT of the left hip demonstrated acute nondisplaced fracture through the subcapital level of the left hip. Patient did go undergo left direct anterior hip hemiarthroplasty yesterday evening on 01/05/2024. No intraoperative com plications were reported. Patient was initially transferred to the medical surgical unit for recovery. He was found to be minimally responsive, and in A team was called overhead. Did receive a dose of Dilaudid earlier, and responded favorably to Narcan IV push. He did reportedly briefly have some nonpurposeful movements, but no obvious seizure-like activity. Patient also had a ABG consistent with profound metabolic acidosis. With a PO2 of 167, pCO2 of 44, pH of 7.12. I recommended that the patient be worked up in the intensive care unit. On my evaluation, he is alert but it is very difficult to communicate. Patient is hard of hearing and I am told he has some baseline dementia. He can only communicate with written messages. Not particularly in any distress. Left hip incision site appears approximated without any obvious bleeding. On review of patient's medical record, he had a similar presentation approximately 1 year ago following a right femoral neck fracture and hemiarthroplasty. He was worked up by our inpatient neurology group, thought to have an isolated episode of seizure-like activity. Patient is currently not on any antiepileptic medications. He currently does not have any seizure-like activity. Neurological exam is nonfocal. No muscle rigidity. Reportedly received combination of rocuronium, propofol and fentanyl in the operating room. More labs are back. CBC: WBC count 13.5, hemoglobin 14.8, hematocrit 47.6, platelets 143. CMP: Sodium 137, potassium 4.8, chloride 109, serum bicarb 10, BUN 23, creatinine 1.17, glucose 184. Normal saline is infusing at 100 MLS per hour. Lactic acid level was elevated at 6.7. No recent doses of metformin since hospital admission. creatinine kinase 293. There is a indwelling urinary catheter with concentrated urine. Urinalysis reportedly positive for ketones and glucose. Consider euglycemic DKA. He was given a liter of normal saline bolus. No fevers. Tachycardic on bedside monitor, 112 bpm. Blood pressure is 148/98 mmHg. He is on 4 L/min nasal cannula. SpO2 95%. No respiratory distress. No tachypnea. Repeat ABG shows significant improvement in his metabolic acidosis. Seems to be clinically improving back to baseline. On 02/03/2024, the patient is being seen for a follow-up. Patient is stable. The patient has dementia and difficult to communicate with. The patient underwent a left hip hemiarthroplasty on 01/05/2024. Surgical wound is dry clean and intact. No agitation. He does have cognitive impairment related to his underlying dementia. Hemodynamically stable and the patient is currently on room air oxygen. No other specific events over the past 24 hours. Rest of the medications were reviewed. The patient remains on Keppra for seizure activity and the patient is free of any seizure at this point in time. The patient remains on aspirin. He remains on Seroquel. Dilaudid for pain control to be used on a sodium basis. The patient was also seen by neurology regarding seizure activity and the patient was advised to continue Keppra for now. EEG has been ordered. Unable to perform as the patient was quite restless and agitated and uncooperative. This will be attempted again. Sedation is also being given for normal pressure hydrocephalus. Outpatient neurosurgical evaluation will be done at a later stage. On 01/08/2024, the patient is being seen for a follow-up. On room air oxygen. No specific complaints. No significant events overnight. No issues with pain. No fever or chills and the surgical wound site is dry clean and intact. No new labs are available from today. Neurology is on the case. The patient remains on Keppra 500 mg IV every 12 hours and there is no further evidence of seizure activity. He remains on Seroquel 50 mg p.o. twice a day and 100 mg at bedtime. Remains on aspirin. Remains on [place] for pain control. On 01/09/2024, the patient is being seen for a follow-up. The patient is calm and comfortable. No significant complaints. No significant issues overnight. Surgical incisions are clean and intact. Resting comfortably in bed. Suffers from advanced dementia. Maintains on Seroquel to milligrams twice a day and 100 mg overnight. No seizure activity has been noted and the patient remains on Keppra. Rest of the medications remain unchanged. 01/10/2024, clinical status is stable and unchanged compared to yesterday. No significant events overnight. Patient is calm and comfortable. Resting comfortably in bed. Surgical wound is dry clean and intact. Tolerating his diet. No other significant events overnight. 01/11/2024, the patient is stable. No specific complaints. Resting comfortably in bed. No new labs. Surgical scar is dry clean and intact. No significant events overnight. Medication remains unchanged. No issues with pain. He is calm and comfortable. No other significant events overnight. No seizure activity has been noted. Objective - Vital Signs Vital signs: Vital Signs Temp 98.0 F 01/11/24 07:05 Pulse 98 01/11/24 07:42 Resp 18 01/11/24 07:42 BP 107/73 01/11/24 07:05 Pulse Ox 94 L 01/11/24 07:05 FiO2 Intake & Output 01/10/24 01/11/24 01/11/24 18:59 06:59 18:59 Weight 83.5 kg 73 kg Other: Voiding Method Diaper Diaper Diaper # Voids 2 4 - Exam GENERAL EXAM: Alert, 68-year-old white male, restless pulling at equipment, mov es all 4 extremities, currently on room air oxygen. Calm and comfortable. HEAD: Normocephalic and atraumatic EYES: Normal reaction of pupils, equal size. NOSE: Clear with pink turbinates. THROAT: No erythema or exudates. NECK: No masses, no JVD. CHEST: No chest wall deformity. LUNGS: Equal air entry with diminished lung sounds bilaterally. No crackles, wheeze, rhonchi. No conversational dyspnea or accessory muscle use.. CVS: S1 and S2 normal with no audible murmur, regular rhythm. No extra heart sounds ABDOMEN: No hepatosplenomegaly, active bowel sounds, no guarding or rigidity. SPINE: No scoliosis or deformity SKIN: No rashes CENTRAL NERVOUS SYSTEM: No focal deficits, tone is normal in all 4 extremities. The surgical wound site over the left hip areas are clean and intact. EXTREMITIES: There is no peripheral edema, clubbing, or cyanosis. Peripheral pulses are intact. Left hip incisional dressing is intact. No obvious bleeding or shadowing. - Labs CBC & Chem 7: 01/07/24 20:49 01/06/24 05:36 Labs: Abnormal Lab Results - Last 24 Hours (Table) 01/10/24 01/10/24 01/10/24 Range/Units 12:15 16:44 20:43 POC Glucose (mg/dL) 135 H 136 H 214 H (70-110) mg/dL 01/11/24 Range/Units 05:52 POC Glucose (mg/dL) 114 H (70-110) mg/dL Assessment and Plan Assessment: Left femoral neck fracture status post left direct anterior hip hemiarthroplasty done on 01/05/2024, surgical wound site is clean and the patient is hemodynamically stable. Fall Chronic dementia with impairment of the cognitive functions, consider the possibility of normal pressure hydrocephalus and outpatient neurosurgical evaluation will be done on the patient for the need for a RESIDENT[employer]ILDER shunt. Breakthrough seizures, currently on IV Keppra, unable to obtain EEG. The patient is currently free of any seizures and neurology is on the case Acute leukocytosis, likely reactive to surgery, no obvious infectious process identified. Likely reactive. Follow-up white cell count we will obtain for tomorrow. Acute hypoxemic respiratory failure, currently on room air oxygen History of COPD, stable History of CVA/TIA History of hyperlipidemia History of hypertension History of diabetes mellitus, type II History of dementia History of seizure activity, not routinely on antiepileptic medications ECF resident Hearing impairment Plan: Clinically stable and the patient should be able to get discharged if cleared by orthopedic surgery. No reported aspiration. Oxygenation is stable and the patient is on room air oxygen No seizure activity Neurologic functions are stable and the patient is free of any seizures on IV Keppra 500 mg IV every 12 hours, this can be switched to oral Keppra. Continue Seroquel 50 mg p.o. twice daily and 100 mg at bedtime No agitation Neurology input is well-appreciated Monitor the white cell count Surgical scar over the left hip area is dry clean and intact Prognosis is guarded secondary to multiple medical comorbidities. Patient is a DO NOT RESUSCITATE/DO NOT INTUBATE. Will sign off the case. Discharge planning in progress.
--- NOTE | 2024-01-11 13:14 | P.PN ---
Subjective Progress Note Date: 01/11/24 patient is 68-year-old gentleman with past medical history significant for hypertension, hyperlipidemia who is [facility] brought to the ER after a fall. Patient has been having left hip pain for the last 2 days after having a fall couple days ago. Patient denies any chest pain or shortness of breath. There is no complaint of orthopnea or PND. There is no complaint of loss of consciousness. There is no complaint of nausea, vomiting abdominal pain. Initial lab work done in the ER showed WBC 8.2, hemoglobin 15.4, platelet count 155, sodium 137, potassium 5.1, BUN 29, creatinine 1.03, UA negative for any infection EKG done in the ER showed heart rate of 77, no ST segment elevation or depression seen, no T-wave inversions seen. X-ray left hip done showed no acute displaced fracture CT left hip done showed acute nondisplaced fracture throughout the subcapital level of left hip Patient admitted to orthopedic service 01/04. Patient seen and examined. Currently n.p.o., going for procedure today. Complaining of left hip pain 01/05. Patient seen examined. Patient was transferred to ICU for seizure-like activity. Currently back to baseline, answering questions. 01/06. Patient seen and examined. Patient evaluated by neurology, started patient on Keppra. Currently patient out of ICU on stepdown unit. Patient not very compliant with treatment, refused EEG. 01/07. Patient seen and examined. No acute issues overnight. Vital signs stable 01/08. Patient seen and examined. No episode of seizure-like activity. EEG could not be completed, neurology recommended keeping patient on Keppra. 01/09. Patient seen and examined. Patient medically stable for discharge to r ab facility 01/10. Patient seen and examined. Review of system cannot be obtained as patient does not answer questions. Patient is medically stable for discharge to rehab facility REVIEW OF SYSTEMS: Review of system cannot be obtained as patient is agitated PHYSICAL EXAMINATION: GENERAL: The patient is alert . Ill looking HEENT: Pupils are round and equally reacting to light. EOMI. No scleral icterus. Bilateral hearing grossly reduced CARDIOVASCULAR: S1 and S2 present. No murmurs, rubs, or gallops. PULMONARY: Chest is clear to auscultation, no wheezing or crackles. ABDOMEN: Soft, nontender, nondistended, normoactive bowel sounds. No palpable organomegaly. MUSCULOSKELETAL: No joint swelling or deformity. Left hip surgical incision seen EXTREMITIES: No cyanosis, clubbing, or pedal edema. NEUROLOGICAL: Gross neurological examination did not reveal any focal deficits. SKIN: No rashes. Assessment and plan Fall Left hip fracture Acute metabolic encephalopathy Seizure-like activity Hypertension Hyperlipidemia BPH Monitor vital signs Monitor CBC Monitor CMP Continue pain management per orthopedics Continue DVT prophylaxis per orthopedics Seizure precautions Continue Keppra Judicious use of pain medication Orthopedic following Neurology following, do not recommend further attempts for EEG to be done, recommend outpatient follow Labs and medication were reviewed.. Continue same treatment. Continue with symptomatic treatment. Resume home medication. Monitor labs and vitals. DVT and GI prophylaxis. Further recommendations as per clinical course of the patient Dictation was produced using [employer] dictation software. please excuse any grammatical, word or spelling errors. Objective - Vital Signs Vital signs: Vital Signs Temp 98.0 F 01/11/24 07:05 Pulse 98 01/11/24 07:42 Resp 18 01/11/24 07:42 BP 107/73 01/11/24 07:05 Pulse Ox 94 L 01/11/24 07:05 FiO2 Intake & Output 01/10/24 01/11/24 01/11/24 18:59 06:59 18:59 Weight 83.5 kg 73 kg Other: Voiding Method Diaper Diaper Diaper # Voids 2 4 - Labs CBC & Chem 7: 01/07/24 20:49 01/06/24 05:36 Labs: Abnormal Lab Results - Last 24 Hours (Table) 01/10/24 01/10/24 01/10/24 Range/Units 12:15 16:44 20:43 POC Glucose (mg/dL) 135 H 136 H 214 H (70-110) mg/dL 01/11/24 Range/Units 05:52 POC Glucose (mg/dL) 114 H (70-110) mg/dL
[2024-01-11 16:46] LABS: Glucose,Whole Blood 154 mg/dL (70-110)
[2024-01-11 20:41] LABS: Glucose,Whole Blood 139 mg/dL (70-110)
[2024-01-11] MEDS ORDERED: DEXTROSE 50% SYRINGE 50 ML IVP PRN ×2 (21:44)
[2024-01-12] MEDS: INSULIN ASPART (NovoLOG) 100 UNIT/ML VIAL SQ SCH (06:09)
[2024-01-12 06:21] LABS: Glucose,Whole Blood 104 mg/dL (70-110)
--- NOTE | 2024-01-12 08:06 | P.DS ---
Providers Date of admission: 01/04/24 03:15 Attending physician: Alonso Roy Consults: 01/04/24 03:13 Consult Physician Routine Consulting Provider: Gee Lester Consult Reason/Comments: medical management Do you want consulting provider notified?: Yes 01/06/24 00:34 Consult Physician Urgent Consulting Provider: Karyna Rodriguez Consult Reason/Comments: ICU management Do you want consulting provider notified?: Already Contacted 01/06/24 03:00 Consult Physician Stat Consulting Provider: Meliza Bansal Consult Reason/Comments: seizures Do you want consulting provider notified?: Yes Primary care physician: [facility] Hospital Course: The patient is a 68 year old male with multiple medical problems. He was admitted under my care with a hip fracture last week and underwent a hip he miarthroplasty last Friday. He had 2 doses of antibiotics. He was started on Aspirin for DVT prophylaxis. He had a dressing change on POD#3 due to the dressing coming off. He had multiple medical issues managed by IM and ICU. He was cleared for discharge from an orthopaedic standpoint last week. Please see IM discharge documentation for summary of medical issues. Patient Condition at Discharge: Fair Plan - Discharge Summary Discharge Rx Participant: No New Discharge Prescriptions: New HYDROcodone/APAP 5-325MG [[place] 5-325] 1 - 2 tab PO Q6HR PRN #32 tab PRN Reason: Pain Aspirin 81 mg PO BID #60 tab Docusate [Colace] 100 mg PO BID #60 capsule No Action Thiamine HCl [Vitamin B-1] 100 mg PO DAILY amLODIPine [Norvasc] 10 mg PO DAILY Folic Acid 0.4 mg PO DAILY Atorvastatin [Lipitor] 10 mg PO HS Acetaminophen Tab [Tylenol] 650 mg PO Q6H PRN PRN Reason: Pain QUEtiapine [SEROquel] 100 mg PO HS Sertraline [Zoloft] 25 mg PO DAILY Na Phos,M-B/Na Phos,Di-Ba [Fleet Adult] 133 ml RECTAL DAILY PRN PRN Reason: Constipation HYDROcodone/APAP 5-325MG [[place] 5-325] 1 tab PO BID PRN PRN Reason: Pain Magnesium Hydroxide [Milk of Magnesia] 2,400 mg PO DAILY PRN PRN Reason: Constipation metFORMIN HCL ER [Glucophage XR] 500 mg PO DAILY Sennosides/Docusate Sodium [Senna Plus 8.6-50 mg Tablet] 2 tab PO HS Sertraline HCl [Zoloft] 50 mg PO DAILY Aspirin 81 mg PO DAILY Docusate [Colace] 100 mg PO BID #60 capsule bisacodyL [Dulcolax] 10 mg RECTAL DAILY PRN PRN Reason: Constipation Lactose-Reduced Food [Ensure Plus] 237 ml PO DAILY Omeprazole [PriLOSEC] 20 mg PO DAILY QUEtiapine [SEROquel] 50 mg PO BID@0900,1400 HYDROcodone/APAP 5-325MG [[place] 5-325] 1 tab PO Q8H Discharge Medication List Atorvastatin [Lipitor] 10 mg PO HS 04/14/20 [History] Folic Acid 0.4 mg PO DAILY 04/14/20 [History] Thiamine HCl [Vitamin B-1] 100 mg PO DAILY 04/14/20 [History] amLODIPine [Norvasc] 10 mg PO DAILY 04/14/20 [History] Acetaminophen Tab [Tylenol] 650 mg PO Q6H PRN 06/14/20 [History] QUEtiapine [SEROquel] 100 mg PO HS 02/20/23 [History] Sertraline [Zoloft] 25 mg PO DAILY 02/20/23 [History] Docusate [Colace] 100 mg PO BID #60 capsule 02/21/23 [Rx] Aspirin 81 mg PO DAILY 01/04/24 [History] HYDROcodone/APAP 5-325MG [[place] 5-325] 1 tab PO BID PRN 01/04/24 [History] HYDROcodone/APAP 5-325MG [[place] 5-325] 1 tab PO Q8H 01/04/24 [History] Lactose-Reduced Food [Ensure Plus] 237 ml PO DAILY 01/04/24 [History] Magnesium Hydroxide [Milk of Magnesia] 2,400 mg PO DAILY PRN 01/04/24 [History] Na Phos,M-B/Na Phos,Di-Ba [Fleet Adult] 133 ml RECTAL DAILY PRN 01/04/24 [History] Omeprazole [PriLOSEC] 20 mg PO DAILY 01/04/24 [History] QUEtiapine [SEROquel] 50 mg PO BID@0900,1400 01/04/24 [History] Sennosides/Docusate Sodium [Senna Plus 8.6-50 mg Tablet] 2 tab PO HS 01/04/24 [History] Sertraline HCl [Zoloft] 50 mg PO DAILY 01/04/24 [History] bisacodyL [Dulcolax] 10 mg RECTAL DAILY PRN 01/04/24 [History] metFORMIN HCL ER [Glucophage XR] 500 mg PO DAILY 01/04/24 [History] Aspirin 81 mg PO BID #60 tab 01/08/24 [Rx] Docusate [Colace] 100 mg PO BID #60 capsule 01/08/24 [Rx] HYDROcodone/APAP 5-325MG [[place] 5-325] 1 - 2 tab PO Q6HR PRN #32 tab 01/08/24 [Rx] Follow up Appointment(s)/Referral(s): Lalo Tubbs MD [Primary Care Provider] - 1-2 days Alonso Roy MD [Medical Doctor] - 2 Weeks Activity/Diet/Wound Care/Special Instructions: Orthopaedic Surgery Discharge Instructions (please see internal medicine instructions for general medical care following discharge) 1. Weight-bear as tolerated on your operative extremity unless instructed otherwise. Use a walker or other assistive device to ambulate. 2. Leave surgical dressing in place. If your dressing becomes saturated with blood, there is drainage, or the dressing becomes loose please contact the office. 3. It is okay to shower with your surgical dressing, but do not submerge in water (no hot tubs, bath's, swimming etc.) 4. Make sure to take her blood clot prevention medication as prescribed (aspirin, Eliquis, Xarelto, and Plavix are commonly prescribed medications for blood clot prevention) 5. While taking [place] or Percocet for pain make sure you're taking a stool softener (Colace) and drink lots of water. 6. Keep all follow-up appointments as scheduled. You will usually be seen in 1-2 weeks following surgery. 7. Please contact the office with any questions or concerns [phone] Discharge Disposition: TRANSFER TO SNF/F
[2024-01-12 08:10] VITALS: BP 117/78; PULSE 60; RESP 17; TEMP 98
[2024-01-12 11:48] LABS: Glucose,Whole Blood 137 mg/dL (70-110)
--- NOTE | 2024-01-12 15:05 | P.PN ---
Subjective Progress Note Date: 01/12/24 Patient is 68-year-old white male with past medical history significant for chronic confusion/advanced dementia, frequent falls, previous displaced right subcapital femoral neck fracture and anterior hip hemiarthroplasty. Also, has past medical history of COPD, CVA/TIA, hyperlipidemia, hypertension, diabetes mellitus, and prostate disorder. Patient presented to our emergency department on January 02 from a [facility] after falling 2 days prior and having left hip pain. CT of the left hip demonstrated acute nondisplaced fracture through the subcapital level of the left hip. Patient did go undergo left direct anterior hip hemiarthroplasty yesterday evening on 01/05/2024. No intraoperative comp lications were reported. Patient was initially transferred to the medical surgical unit for recovery. He was found to be minimally responsive, and in A team was called overhead. Did receive a dose of Dilaudid earlier, and responded favorably to Narcan IV push. He did reportedly briefly have some nonpurposeful movements, but no obvious seizure-like activity. Patient also had a ABG consistent with profound metabolic acidosis. With a PO2 of 167, pCO2 of 44, pH of 7.12. I recommended that the patient be worked up in the intensive care unit. On my evaluation, he is alert but it is very difficult to communicate. Patient is hard of hearing and I am told he has some baseline dementia. He can only communicate with written messages. Not particularly in any distress. Left hip incision site appears approximated without any obvious bleeding. On review of patient's medical record, he had a similar presentation approximately 1 year ago following a right femoral neck fracture and hemiarthroplasty. He was worked up by our inpatient neurology group, thought to have an isolated episode of seizure-like activity. Patient is currently not on any antiepileptic medications. He currently does not have any seizure-like activity. Neurological exam is nonfocal. No muscle rigidity. Reportedly received combination of rocuronium, propofol and fentanyl in the operating room. More labs are back. CBC: WBC count 13.5, hemoglobin 14.8, hematocrit 47.6, platelets 143. CMP: Sodium 137, potassium 4.8, chloride 109, serum bicarb 10, BUN 23, creatinine 1.17, glucose 184. Normal saline is infusing at 100 MLS per hour. Lactic acid level was elevated at 6.7. No recent doses of metformin since hospital admission. creatinine kinase 293. There is a indwelling urinary catheter with concentrated urine. Urinalysis reportedly positive for ketones and glucose. Consider euglycemic DKA. He was given a liter of normal saline bolus. No fevers. Tachycardic on bedside monitor, 112 bpm. Blood pressure is 148/98 mmHg. He is on 4 L/min nasal cannula. SpO2 95%. No respiratory distress. No tachypnea. Repeat ABG shows significant improvement in his metabolic acidosis. Seems to be clinically improving back to baseline. On 02/03/2024, the patient is being seen for a follow-up. Patient is stable. The patient has dementia and difficult to communicate with. The patient underwent a left hip hemiarthroplasty on 01/05/2024. Surgical wound is dry clean and intact. No agitation. He does have cognitive impairment related to his underlying dementia. Hemodynamically stable and the patient is currently on room air oxygen. No other specific events over the past 24 hours. Rest of the medications were reviewed. The patient remains on Keppra for seizure activity and the patient is free of any seizure at this point in time. The patient remains on aspirin. He remains on Seroquel. Dilaudid for pain control to be used on a sodium basis. The patient was also seen by neurology regarding seizure activity and the patient was advised to continue Keppra for now. EEG has been ordered. Unable to perform as the patient was quite restless and agitated and uncooperative. This will be attempted again. Sedation is also being given for normal pressure hydrocephalus. Outpatient neurosurgical evaluation will be done at a later stage. On 01/08/2024, the patient is being seen for a follow-up. On room air oxygen. No specific complaints. No significant events overnight. No issues with pain. No fever or chills and the surgical wound site is dry clean and intact. No new labs are available from today. Neurology is on the case. The patient remains on Keppra 500 mg IV every 12 hours and there is no further evidence of seizure activity. He remains on Seroquel 50 mg p.o. twice a day and 100 mg at bedtime. Remains on aspirin. Remains on [place] for pain control. On 01/09/2024, the patient is being seen for a follow-up. The patient is calm and comfortable. No significant complaints. No significant issues overnight. Surgical incisions are clean and intact. Resting comfortably in bed. Suffers from advanced dementia. Maintains on Seroquel to milligrams twice a day and 100 mg overnight. No seizure activity has been noted and the patient remains on Keppra. Rest of the medications remain unchanged. 01/10/2024, clinical status is stable and unchanged compared to yesterday. No significant events overnight. Patient is calm and comfortable. Resting comfortably in bed. Surgical wound is dry clean and intact. Tolerating his diet. No other significant events overnight. 01/11/2024, the patient is stable. No specific complaints. Resting comfortably in bed. No new labs. Surgical scar is dry clean and intact. No significant events overnight. Medication remains unchanged. No issues with pain. He is calm and comfortable. No other significant events overnight. No seizure activity has been noted. The patient is seen today January 12, 2024 in follow-up on the regular medical floor. He is currently resting in bed. No acute distress. Maintaining good O2 saturations in the 90s on room air. Glucose 137. No seizure activity noted. Objective - Vital Signs Vital signs: Vital Signs Temp 98.0 F 01/12/24 07:21 Pulse 60 01/12/24 07:21 Resp 17 01/12/24 07:21 BP 117/78 01/12/24 07:21 Pulse Ox 99 01/12/24 07:21 FiO2 Intake & Output 01/11/24 01/12/24 01/12/24 18:59 06:59 18:59 Intake Total 440 Balance 440 Weight 85 kg Intake: Oral 440 Other: Voiding Method Diaper Diaper Diaper # Voids 2 3 # Bowel Movements 1 1 - Exam GENERAL EXAM: Alert, 68-year-old male, sitting in bed. Seizure precautions. Currently on room air oxygen. Calm and comfortable. HEAD: Normocephalic and atraumatic EYES: Normal reaction of pupils, equal size. NOSE: Clear with pink turbinates. THROAT: No erythema or exudates. NECK: No masses, no JVD. CHEST: No chest wall deformity. LUNGS: Equal air entry with diminished lung sounds bilaterally. No crackles, wheeze, rhonchi. No conversational dyspnea or accessory muscle use.. CVS: S1 and S2 normal with no audible murmur, regular rhythm. No extra heart so unds ABDOMEN: No hepatosplenomegaly, active bowel sounds, no guarding or rigidity. SPINE: No scoliosis or deformity SKIN: No rashes CENTRAL NERVOUS SYSTEM: No focal deficits, tone is normal in all 4 extremities. The surgical wound site over the left hip areas are clean and intact. EXTREMITIES: There is no peripheral edema, clubbing, or cyanosis. Peripheral pulses are intact. Left hip incisional dressing is intact. No obvious bleeding or shadowing. - Labs CBC & Chem 7: 01/07/24 20:49 01/06/24 05:36 Labs: Abnormal Lab Results - Last 24 Hours (Table) 01/11/24 01/11/24 01/12/24 Range/Units 16:44 20:39 11:46 POC Glucose (mg/dL) 154 H 139 H 137 H (70-110) mg/dL Assessment and Plan Assessment: Left femoral neck fracture secondary to a fall, status post left direct anterior hip hemiarthroplasty done on 01/05/2024, surgical wound site is clean and the patient is hemodynamically stable. Chronic dementia with impairment of the cognitive functions, consider the possibility of normal pressure hydrocephalus and outpatient neurosurgical evaluation will be done on the patient for the need for a [employer] shunt. Breakthrough seizures, currently on IV Keppra, unable to obtain EEG. The patient is currently free of any seizures and neurology is on the case Acute leukocytosis, likely reactive to surgery, no obvious infectious process identified. Likely reactive. Follow-up white cell count we will obtain for tomorrow. Acute hypoxemic respiratory failure, currently on room air oxygen History of COPD, stable History of CVA/TIA History of hyperlipidemia History of hypertension History of diabetes mellitus, type II History of dementia History of seizure activity, not routinely on antiepileptic medications ECF resident Hearing impairment Plan: The patient was seen and evaluated Currently stable and on room air No seizure activity noted Plan is to return to [facility] at discharge I have personally seen and examined the patient, performed the documentation and the assessment and plan as written. Number of minutes spent on the visit: 10.
[2024-01-12] MEDS ORDERED: INSULIN ASPART (NovoLOG) 100 UNIT/ML VIAL SQ SCH (22:00)
--- NOTE | 2024-01-16 00:25 | P.PN ---
Subjective Progress Note Date: 01/12/24 patient is 68-year-old gentleman with past medical history significant for hypertension, hyperlipidemia who [facility] to [facility] after a [facility]. Patient has been having left hip pain for the last 2 days after having a fall couple days ago. Patient denies any chest pain or shortness of breath. There is no complaint of orthopnea or PND. There is no complaint of loss of consciousness. There is no complaint of nausea, vomiting abdominal pain. Initial lab work done in the ER showed WBC 8.2, hemoglobin 15.4, platelet count 155, sodium 137, potassium 5.1, BUN 29, creatinine 1.03, UA negative for any infection EKG done in the ER showed heart rate of 77, no ST segment elevation or depression seen, no T-wave inversions seen. X-ray left hip done showed no acute displaced fracture CT left hip done showed acute nondisplaced fracture throughout the subcapital level of left hip Patient admitted to orthopedic service 01/04. Patient seen and examined. Currently n.p.o., going for procedure today. Complaining of left hip pain 01/05. Patient seen examined. Patient was transferred to ICU for seizure-like activity. Currently back to baseline, answering questions. 01/06. Patient seen and examined. Patient evaluated by neurology, started patient on Keppra. Currently patient out of ICU on stepdown unit. Patient not very compliant with treatment, refused EEG. 01/07. Patient seen and examined. No acute issues overnight. Vital signs stable 01/08. Patient seen and examined. No episode of seizure-like activity. EEG could not be completed, neurology recommended keeping patient on Keppra. 01/09. Patient seen and examined. Patient medically stable for discharge to r ehab facility 01/10. Patient seen and examined. Review of system cannot be obtained as patient does not answer questions. Patient is medically stable for discharge to rehab facility 01/11/2023 Patient evaluated today at the bedside. Sitting up in the chair. Does not appear to be in any acute distress at this time. EEG was attempted today and unable to complete again due to patients cooperativeness. Neurology recommending keppra on discharge and to follow up with a neurologist outpatient. Medically patient is cleared for discharge to subacute rehab today and insurance authorization has been attained. REVIEW OF SYSTEMS: Review of system cannot be obtained as patient is agitated PHYSICAL EXAMINATION: GENERAL: The patient is alert . Ill looking HEENT: Pupils are round and equally reacting to light. EOMI. No scleral icterus. Bilateral hearing grossly reduced CARDIOVASCULAR: S1 and S2 present. No murmurs, rubs, or gallops. PULMONARY: Chest is clear to auscultation, no wheezing or crackles. ABDOMEN: Soft, nontender, nondistended, normoactive bowel sounds. No palpable organomegaly. MUSCULOSKELETAL: No joint swelling or deformity. Left hip surgical incision seen EXTREMITIES: No cyanosis, clubbing, or pedal edema. NEUROLOGICAL: Gross neurological examination did not reveal any focal deficits. SKIN: No rashes. Assessment and plan Fall Left hip fracture Acute metabolic encephalopathy Seizure-like activity Hypertension Hyperlipidemia BPH GI prophylaxis DVT prophylaxis Plan Monitor vital signs Continue pain management per orthopedics Continue DVT prophylaxis per orthopedics Seizure precautions Continue Keppra Judicious use of pain medication Orthopedic following Neurology following, do not recommend further attempts for EEG to be done, recommend outpatient follow Medically patient is stable for discharge to subacute rehab. Patient will continue on aspirin 81 mg po twice a day for 30 days than recommend to continue aspirin 81 mg daily. Patient will continue on keppra 500 mg BID. Labs and medication were reviewed.. Continue same treatment. Continue with symptomatic treatment. Resume home medication. Monitor labs and vitals. DVT and GI prophylaxis. Further recommendations as per clinical course of the patient The impression and plan of care has been dictated by Sayra Dowling Nurse Practitioner as directed. Dr. Josh MD I have performed a history and physical examination and medical decision making of this patient, discussed the same with the dictator, and agree with the dictators assessment and plan as written, documented as a scribe. Based on total visit time, I have performed more than 50% of this visit. Objective - Vital Signs Vital signs: Vital Signs Temp 98.0 F 01/12/24 07:21 Pulse 60 01/12/24 07:21 Resp 17 01/12/24 07:21 BP 117/78 01/12/24 07:21 Pulse Ox 99 01/12/24 07:21 FiO2 - Labs CBC & Chem 7: 01/07/24 20:49 01/06/24 05:36 Assessment and Plan Time with Patient: Less than 30
== END 2024-01-12 13:59 | DRG 521 ==
LOC: EC 22:14 → 4SSUR 01-04 03:15 → 2SICU 01-06 00:05 → 3SCARD 01-06 14:59 → 4SSUR 01-09 10:30
PROVIDERS: ADMIT Orthopaedic Surgery; ATTEND Orthopaedic Surgery
PROC: 0SRS0J9 Replacement of Left Hip Joint, Femoral Surface with Synthetic Substitute, Cemented, Open Approach (ICD-10-PCS; principal; 2024-01-05 09:10)
DX: S72.012A Unspecified intracapsular fracture of left femur, initial encounter for closed fracture (principal); G93.41 Metabolic encephalopathy; J96.01 Acute respiratory failure with hypoxia; E87.20 Acidosis, unspecified; G91.2 (Idiopathic) normal pressure hydrocephalus; W18.30XA Fall on same level, unspecified, initial encounter; D72.829 Elevated white blood cell count, unspecified; G93.89 Other specified disorders of brain; H91.10 Presbycusis, unspecified ear; I25.10 Atherosclerotic heart disease of native coronary artery without angina pectoris; I51.7 Cardiomegaly; J44.9 Chronic obstructive pulmonary disease, unspecified; N40.0 Benign prostatic hyperplasia without lower urinary tract symptoms; G40.909 Epilepsy, unspecified, not intractable, without status epilepticus; F01.50 Vascular dementia, unspecified severity, without behavioral disturbance, psychotic disturbance, mood disturbance, and anxiety; F32.A Depression, unspecified; E11.9 Type 2 diabetes mellitus without complications; E78.5 Hyperlipidemia, unspecified; Z66 Do not resuscitate; I10 Essential (primary) hypertension; Z79.82 Long term (current) use of aspirin; Z79.84 Long term (current) use of oral hypoglycemic drugs; Z79.899 Other long term (current) drug therapy; Z86.73 Personal history of transient ischemic attack (TIA), and cerebral infarction without residual deficits; Z87.891 Personal history of nicotine dependence; Z91.199 Patient's noncompliance with other medical treatment and regimen due to unspecified reason
CPT/HCPCS: 36415; 36600; 70450; 71045; 73501; 73502; 80048; 80053; 81001; 82550; 82805; 83036; 83605; 84146; 85025; 85610; 85730; 86850; 86900; 86901; 93005; 99285

== ENCOUNTER 2024-03-26 17:35 | Emergency (ER) | payer MEDICARE ==
[2024-03-26 17:54] VITALS: PULSE 66; TEMP 98.5
--- NOTE | 2024-03-26 19:09 | ED ---
Male Urogenital HPI - General Chief complaint: Urogenital Stated complaint: Cath Issue Time Seen by Provider: 03/26/24 17:39 Source: EMS, RN notes reviewed Mode of arrival: EMS Limitations: physical limitation - History of Present Illness Initial comments: This is a 68-year-old male who presents to the emergency department for problems with his urinary catheter. Patient has a chronic indwelling Quinones urinary catheter. He has a history of severe advanced dementia and other medical problems limiting his ability to provide much of any history. He lives in a nursing facility and the staff noticed blood coming around the penis at the site of catheter insertion as well as blood clots in the catheter bag. Patient not currently voicing any complaints. - Related Data Home Medications Medication Instructions Recorded Confirmed Atorvastatin [Lipitor] 10 mg PO HS 04/14/20 01/04/24 Folic Acid 0.4 mg PO DAILY 04/14/20 01/04/24 Thiamine HCl [Vitamin B-1] 100 mg PO DAILY 04/14/20 01/04/24 Acetaminophen Tab [Tylenol] 650 mg PO Q6H PRN 06/14/20 01/04/24 QUEtiapine [SEROquel] 100 mg PO HS 02/20/23 01/04/24 Sertraline [Zoloft] 25 mg PO DAILY 02/20/23 01/04/24 HYDROcodone/APAP 5-325MG [[place] 1 tab PO BID PRN 01/04/24 01/04/24 5-325] HYDROcodone/APAP 5-325MG [[place] 1 tab PO Q8H 01/04/24 01/04/24 5-325] Lactose-Reduced Food [Ensure Plus] 237 ml PO DAILY 01/04/24 01/04/24 Magnesium Hydroxide [Milk of 2,400 mg PO DAILY PRN 01/04/24 01/04/24 Magnesia] Na Phos,M-B/Na Phos,Di-Ba [Fleet 133 ml RECTAL DAILY PRN 01/04/24 01/04/24 Adult] Omeprazole [PriLOSEC] 20 mg PO DAILY 01/04/24 01/04/24 QUEtiapine [SEROquel] 50 mg PO BID@0900,1400 01/04/24 01/04/24 Sennosides/Docusate Sodium [Senna 2 tab PO HS 01/04/24 01/04/24 Plus 8.6-50 mg Tablet] Sertraline HCl [Zoloft] 50 mg PO DAILY 01/04/24 01/04/24 bisacodyL [Dulcolax] 10 mg RECTAL DAILY PRN 01/04/24 01/04/24 metFORMIN HCL ER [Glucophage XR] 500 mg PO DAILY 01/04/24 01/04/24 Previous Rx's Medication Instructions Recorded Docusate [Colace] 100 mg PO BID #60 capsule 02/21/23 Aspirin 81 mg PO BID #60 tab 01/08/24 Docusate [Colace] 100 mg PO BID #60 capsule 01/08/24 HYDROcodone/APAP 5-325MG [[place] 1 - 2 tab PO Q6HR PRN #32 tab 01/08/24 5-325] Aspirin 81 mg PO DAILY #0 01/12/24 Famotidine [Pepcid] 20 mg PO BID tab 01/12/24 levETIRAcetam [Keppra] 500 mg PO Q12HR #60 tab 01/12/24 Allergies Allergy/AdvReac Type Severity Reaction Status Date / Time No Known Allergies Allergy Verified 03/26/24 17:54 Review of Systems ROS Statement: Those systems with pertinent positive or pertinent negative responses have been documented in the HPI. ROS Other: All systems not noted in ROS Statement are negative. Past Medical History Past Medical History: Unable to Obtain, COPD, CVA/TIA, Dementia, Hearing Disorder / Deafness, Hyperlipidemia, Hypertension, Prostate Disorder Additional Past Medical History / Comment(s): AMS changes/ischemic encephalopathy/vascular dementia/CPD/ASHD/presbycusis. He had a LP performed and was transferred to [facility]. Discharge diagnosis from [facility] list: severe generalized intracranial leukoencephalopathy/cerebral ventriculomegaly/cerebral atrophy/neurogenic dysphagia/UTI/urinary retention/constipation/suspected dysautonomally, acute encephalopathy. [facility] states they were also told uncontrolled HTN/hydrocephalus/advance dementia/uti. 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 History of Any Multi-Drug Resistant Organisms: None Reported Past Surgical History: Appendectomy Additional Past Surgical History / Comment(s): colonoscopy, urology surgery Past Anesthesia/Blood Transfusion Reactions: No Reported Reaction Past Psychological History: Anxiety, Depression Smoking Status: Former smoker Past Alcohol Use History: None Reported Past Drug Use History: None Reported - Past Family History Mother Family Medical History: Dementia, Hypertension Father Family Medical History: Cancer Additional Family Medical History / Comment(s): Lung cancer. Father was a smoker. General Exam Limitations: physical limitation General appearance: alert, in no apparent distress Head exam: Present: atraumatic, normocephalic, normal inspection Respiratory exam: Present: normal lung sounds bilaterally. Absent: respiratory distress, wheezes, rales, rhonchi, stridor Cardiovascular Exam: Present: regular rate, normal rhythm, normal heart sounds. Absent: systolic murmur, diastolic murmur, rubs, gallop, clicks GI/Abdominal exam: Present: soft Neurological exam: Present: alert Skin exam: Present: warm, dry, intact, normal color. Absent: rash Course Vital Signs 03/26/24 03/26/24 17:48 21:20 Temperature 98.5 F Pulse Rate 66 66 Respiratory 17 18 Rate Blood Pressure 137/78 150/79 O2 Sat by Pulse 96 97 Oximetry Medical Decision Making - Medical Decision Making This is a 68 year old male who presents to the emergency department for problems with his Quinones catheter. Was pt. sent in by a medical professional or institution? @ -No Did you speak to anyone other than the patient for history? @ -Nursing facility provided all of the history. Did you review nursing and triage notes? @ -Yes, and I agree, it is accurate with regards to the patient's symptoms. Were old charts reviewed? @ -No Differential Diagnosis? @ -Differential Quinones Catheter Problems: Malposition, incorrect size, UTI, injury, this is not meant to be an all- inclusive list. EKG interpreted by me (3pts min.)? @ -Not obtained X-rays interpreted by me (1pt min.)? @ -Not obtained CT interpreted by me (1pt min.)? @ -Not obtained U/S interpreted by me (1pt. min.)? @ -Not obtained What testing was considered but not performed? (CT, X-rays, U/S, labs)? Why? @ -None What meds were considered but not given? Why? @ -None Did you discuss the management of the patient with other professionals? @ -No Did you reconcile home meds? @ -No Was smoking cessation discussed for >3mins.? @ -No Was critical care preformed (if so, how long)? @ -No Were there social determinants of health that impacted care today? How? (Homelessness, low income, unemployed, alcoholism, drug addiction, transportation, low edu. Level, literacy, decrease access to med. care, alf, rehab)? @ -No Was there de-escalation of care discussed even if they declined? (Discuss DNR or withdrawal of care, Hospice)? @ -No What co-morbidities impacted this encounter? (DM, HTN, Smoking, COPD, CAD, Cancer, CVA, Hep., AIDS, mental health diagnosis, sleep apnea, morbid obesity)? @ -Dementia, prostate disorder Was patient admitted / discharged? @ -Discharged. Nursing staff attempted to flush the Quinones catheter, however they were not successful and there appeared to be a blood clot causing a blockage. Quinones catheter was removed and replaced with a larger size to see if the clots could pass. Quinones catheter was found to be patent and flowing when it was replaced and patient expressed that his discomfort had improved. Urinalysis demonstrates a large amount of blood. He had some elevation in white blood cells but this was not overtly suggestive of infection. Urine was sent for culture. Patient discharged back to nursing facility via EMS in stable condition. Case discussed with ED attending Dr. Phillips. Undiagnosed new problem with uncertain prognosis? @ -None Drug Therapy requiring intensive monitoring for toxicity (Heparin, Nitro, Insulin, Cardizem)? @ -None Were any procedures done? @ -None Diagnosis/symptom? @ -Hematuria, Quinones catheter malfunction Acute, or Chronic, or Acute on Chronic? @ -Acute Uncomplicated (without systemic symptoms) or Complicated (systemic symptoms)? @ -Uncomplicated Side effects of treatment? @ -None Exacerbation, Progression, or Severe Exacerbation] @ -Not applicable Poses a threat to life or bodily function? @ -No - Lab Data Lab Results 03/26/24 Range/Units 18:59 Urine Color Red Urine Appearance Cloudy (Clear) Urine RBC >182 H (0-5) /hpf Urine WBC 39 H (0-5) /hpf Urine Bacteria Rare H (None) /hpf Urine Mucus Rare H (None) /hpf Disposition Clinical Impression: Hematuria, Malfunction of Quinones catheter Disposition: HOME SELF-CARE Additional Instructions: Return to the emergency department with any new, worsening, or concerning symptoms. Follow up with your primary care provider in 1-2 days. Is patient prescribed a controlled substance at d/c from ED?: No Referrals: Lalo Tubbs MD [Primary Care Provider] - 1-2 days Time of Disposition: 20:41
[2024-03-26 19:23] LABS: Appearance,Urine Cloudy (Clear); Bacteria,Urine Rare /hpf; Mucus,Urine Rare /hpf; RBC,Urine >182 /hpf (0-5); WBC,Urine 39 /hpf (0-5)
[2024-03-26 19:24] LABS: Color,Urine Red
[2024-03-26] MEDS: MORPHINE SULFATE 2 MG/ML SYRINGE IM STA (19:31)
[2024-03-26 21:20] VITALS: BP 150/79; RESP 18
== END 2024-03-27 00:02 | disposition home or self-care (01) ==
LOC: EC 17:35
CPT/HCPCS: 51798; 81001; 87077; 87086; 87186; 99283

== ENCOUNTER 2024-04-17 00:22 | Inpatient (IN) | payer MEDICARE ==
--- NOTE | 2024-04-17 00:34 | ED ---
Fever HPI - General Chief Complaint: Fever Stated Complaint: Sepsis Time Seen by Provider: 04/17/24 00:27 Source: EMS, RN notes reviewed, old records reviewed Mode of arrival: EMS Limitations: no limitations - History of Present Illness Initial Comments: This is a 68-year-old male to the ER for evaluation patient presents today for evaluation regards to altered mental status history of dementia with fever normally able to provide history and does have a fever here in the ER is unable to give complaint MD Complaint: fever -: unknown Temperature Source: subjective Context: sick contacts, multiple patients with similar symptoms Associated Symptoms: chills, rigors, myalgias, confusion Treatments Prior to Arrival: none - Related Data Home Medications Medication Instructions Recorded Confirmed Atorvastatin [Lipitor] 10 mg PO HS 04/14/20 04/17/24 Folic Acid 0.4 mg PO DAILY 04/14/20 04/17/24 Thiamine HCl [Vitamin B-1] 300 mg PO DAILY 04/14/20 04/17/24 Acetaminophen Tab [Tylenol] 650 mg PO Q6H PRN 06/14/20 04/17/24 QUEtiapine [SEROquel] 100 mg PO HS 02/20/23 04/17/24 Sertraline [Zoloft] 25 mg PO DAILY 02/20/23 04/17/24 Lactose-Reduced Food [Ensure Plus] 237 ml PO DAILY 01/04/24 04/17/24 Omeprazole [PriLOSEC] 20 mg PO DAILY@0600 01/04/24 04/17/24 QUEtiapine [SEROquel] 50 mg PO BID 01/04/24 04/17/24 Sennosides/Docusate Sodium [Senna 2 tab PO HS 01/04/24 04/17/24 Plus 8.6-50 mg Tablet] Sertraline HCl [Zoloft] 50 mg PO DAILY 01/04/24 04/17/24 metFORMIN HCL ER [Glucophage XR] 500 mg PO DAILY 01/04/24 04/17/24 Docusate [Colace] 100 mg PO Q12H 04/17/24 04/17/24 Famotidine [Pepcid] 20 mg PO BID@0600,2100 04/17/24 04/17/24 Previous Rx's Medication Instructions Recorded HYDROcodone/APAP 5-325MG [[place] 1 - 2 tab PO Q6HR PRN #32 tab 01/08/24 5-325] Aspirin 81 mg PO DAILY #0 01/12/24 levETIRAcetam [Keppra] 500 mg PO Q12HR #60 tab 01/12/24 Allergies Allergy/AdvReac Type Severity Reaction Status Date / Time No Known Allergies Allergy Verified 04/17/24 13:41 Review of Systems ROS Statement: Those systems with pertinent positive or pertinent negative responses have been documented in the HPI. ROS Other: All systems not noted in ROS Statement are negative. Past Medical History Past Medical History: Unable to Obtain, COPD, CVA/TIA, Dementia, Hearing Disorder / Deafness, Hyperlipidemia, Hypertension, Prostate Disorder Additional Past Medical History / Comment(s): AMS changes/ischemic encephalopathy/vascular dementia/CPD/ASHD/presbycusis. He had a LP performed and was transferred to [facility]. Discharge diagnosis from [facility] list: severe generalized intracranial leukoencephalopathy/cerebral ventriculomegaly/cerebral atrophy/neurogenic dysphagia/UTI/urinary retention/constipation/suspected dysautonomally, acute encephalopathy. [facility] states they were also told uncontrolled HTN/hydrocephalus/advance dementia/uti. Other hx: 2013 CVA without residual, [place] bilaterally/speak in R ear, occasional urinary incontinen ce/frequency, CKD, nephrolithiasis, BPH, occasional back pain. History of Any Multi-Drug Resistant Organisms: None Reported Past Surgical History: Appendectomy Additional Past Surgical History / Comment(s): colonoscopy, urology surgery Past Anesthesia/Blood Transfusion Reactions: No Reported Reaction Past Psychological History: Anxiety, Depression Smoking Status: Former smoker Past Alcohol Use History: None Reported Past Drug Use History: None Reported - Past Family History Mother Family Medical History: Dementia, Hypertension Father Family Medical History: Cancer Additional Family Medical History / Comment(s): Lung cancer. Father was a smoker. General Exam General appearance: alert, in no apparent distress Head exam: Present: atraumatic, normocephalic, normal inspection Eye exam: Present: normal appearance, PERRL, EOMI. Absent: scleral icterus, conjunctival injection, periorbital swelling ENT exam: Present: normal exam, mucous membranes moist Neck exam: Present: normal inspection. Absent: tenderness, meningismus, lymphadenopathy Respiratory exam: Present: normal lung sounds bilaterally. Absent: respiratory distress, wheezes, rales, rhonchi, stridor Cardiovascular Exam: Present: regular rate, normal rhythm, normal heart sounds. Absent: systolic murmur, diastolic murmur, rubs, gallop, clicks GI/Abdominal exam: Present: soft, normal bowel sounds. Absent: distended, tenderness, guarding, rebound, rigid Extremities exam: Present: normal inspection, full ROM, normal capillary refill. Absent: tenderness, pedal edema, joint swelling, calf tenderness Back exam: Present: normal inspection Neurological exam: Present: alert, oriented X3, CN II-XII intact Psychiatric exam: Present: normal affect, normal mood Skin exam: Present: warm, dry, intact, normal color. Absent: rash Course Vital Signs 04/17/24 04/17/24 04/17/24 00:23 00:49 01:00 Temperature 99.9 F H Pulse Rate 133 H 130 H 133 H Respiratory 19 17 18 Rate Blood Pressure 85/72 74/47 85/64 O2 Sat by Pulse 94 L 95 95 Oximetry 04/17/24 04/17/24 04/17/24 01:15 01:30 01:50 Temperature Pulse Rate 130 H 130 H 129 H Respiratory 17 18 14 Rate Blood Pressure 99/65 84/65 91/57 O2 Sat by Pulse 92 L 92 L 92 L Oximetry 04/17/24 04/17/24 04/17/24 02:00 02:10 02:40 Temperature 99.2 F Pulse Rate 130 H 126 H 122 H Respiratory 14 15 17 Rate Blood Pressure 91/57 82/61 110/64 O2 Sat by Pulse 91 L 92 L 92 L Oximetry 04/17/24 04/17/24 04/17/24 02:50 03:00 03:20 Temperature Pulse Rate 120 H 118 H 113 H Respiratory 18 19 19 Rate Blood Pressure 88/62 73/55 83/58 O2 Sat by Pulse 90 L 92 L 95 Oximetry 04/17/24 04/17/24 04/17/24 03:30 03:42 04:00 Temperature Pulse Rate 113 H 112 H 112 H Respiratory 19 17 16 Rate Blood Pressure 86/56 98/52 99/71 O2 Sat by Pulse 95 93 L 95 Oximetry 04/17/24 04/17/24 04:30 05:00 Temperature 97.8 F Pulse Rate 112 H 111 H Respiratory 16 15 Rate Blood Pressure 114/71 107/65 O2 Sat by Pulse 95 95 Oximetry - Reevaluation(s) Reevaluation #1: 04/17/24 02:00 Medical records reviewed Reevaluation #2: 04/17/24 02:00 Patient symptoms improved here in the ER Reevaluation #3: 04/17/24 02:00 Patient informed of results and questions answered Reevaluation #4: Was pt. sent in by a medical professional or institution (, PA, AUTOMATIC I THREADING MACHINE FEEDER, urgent care, hospital, or group home...) When possible be specific @ -no Did you speak to anyone other than the patient for history (EMS, parent, family, police, friend...)? What history was obtained from this source @ -no Did you review nursing and triage notes (agree or disagree)? Why? @ -agree Are old charts reviewed (outside hosp., previous admission, EMS record, old EKG, old radiological studies, urgent care reports/EKG's, group home records)? Report findings @ -yes Differential Diagnosis (chest pain, altered mental status, abdominal pain women, abdominal pain men, vaginal bleeding, weakness, fever, dyspnea, syncope, headache, dizziness, GI bleed, back pain, seizure, CVA, palpatations, mental health, musculoskeletal)? @ -prior EKG interpreted by me (3pts min.). @ -yes X-rays interpreted by me (1pt min.). @ -yes negative for acute disease CT interpreted by me (1pt min.). @ -no U/S interpreted by me (1pt. min.). @ -no What testing was considered but not performed or refused? (CT, X-rays, U/S, labs)? Why? @ -none What meds were considered but not given or refused? Why? @ -none Did you discuss the management of the patient with other professionals (professionals i.e. , RALF, AUTOMATIC I THREADING MACHINE FEEDER, lab, RT, psych nurse, socially responsible investment adviser, machine cell tuber, teacher, property utilization officer, rn case mgr)? Give summary @ -no Was smoking cessation discussed for >3mins.? @ -no Was critical care preformed (if so, how long)? @ -no Were there social determinants of health that impacted care today? How? (Homelessness, low income, unemployed, alcoholism, drug addiction, transportation, low edu. Level, literacy, decrease access to med. care, correction, rehab)? @ -none Was there de-escalation of care discussed even if they declined (Discuss DNR or withdrawal of care, Hospice)? DNR status @ -no What co-morbidities impacted this encounter? (DM, HTN, Smoking, COPD, CAD, Cancer, CVA, ARF, Chemo, Hep., AIDS, mental health diagnosis, sleep apnea, morbid obesity)? @ -none Was patient admitted / discharged? Hospital course, mention meds given and route, prescriptions, significant lab abnormalities, going to OR and other pertinent info. @ - 68 male to ER for evaluation of dementia and altered mental status complicated with fever. UTI with urinary retention acute renal failure Admitted Undiagnosed new problem with uncertain prognosis? @ -no Drug Therapy requiring intensive monitoring for toxicity (Heparin, Nitro, Insulin, Cardizem)? @ -no Were any procedures done? @ -no Diagnosis/symptom? @ -UTI renal failure altered mental status and fever Acute, or Chronic, or Acute on Chronic? @ -Acute Uncomplicated (without systemic symptoms) or Complicated (systemic symptoms)? @ -Complicated Side effects of treatment? @ -no Exacerbation, Progression, or Severe Exacerbation? @ -exacerbation Poses a threat to life or bodily function? How? (Chest pain, [place], [place], pneumonia, PE, COPD, DKA, ARF, appy, cholecystitis, CVA, Diverticulitis, Homicidal, Suicidal, threat to staff... and all critical care pts) @ -yes extremes of age Reevaluation #5: Differential Fever: Pneumonia, viral URI, endocarditis, myocarditis, pericarditis, otitis, sinusitis, peritonsillar Abscess, retropharyngeal Abscess, epiglottitis, peritonitis, appendicitis, Natasha cystitis, diverticulitis, hepatitis, colitis, UTI, PID, TOA, pyelonephritis, prostatitis, epididymitis, meningitis, encephalitis, pulmonary embolism, CVA, thyroid storm, pancreatitis, adrenal crisis, cavernous sinus thrombosis, this is not meant to be an all-inclusive list. - Consultations Consultation #1: Spoke with admitting physicians who agreed to admit this patient Medical Decision Making - Medical Decision Making 68 male to ER for evaluation of dementia and altered mental status complicated with fever. UTI with urinary retention acute renal failure - Lab Data Result diagrams: 04/18/24 05:39 04/18/24 05:39 Lab Results 04/17/24 04/17/24 04/17/24 Range/Units 00:47 00:47 00:47 WBC 39.3 H (3.8-10.6) k/uL RBC 5.04 (4.30-5.90) m/uL Hgb 15.5 (13.0-17.5) gm/dL Hct 47.3 (39.0-53.0) % MCV 93.9 (80.0-100.0) fL MCH 30.9 (25.0-35.0) pg MCHC 32.8 (31.0-37.0) g/dL RDW 13.6 (11.5-15.5) % Plt Count 291 (150-450) k/uL MPV 7.8 Neutrophils % 93 % Lymphocytes % 2 % Monocytes % 4 % Eosinophils % 0 % Basophils % 0 % Neutrophils # 36.7 H (1.3-7.7) k/uL Lymphocytes # 0.6 L (1.0-4.8) k/uL Monocytes # 1.6 H (0-1.0) k/uL Eosinophils # 0.1 (0-0.7) k/uL Basophils # 0.1 (0-0.2) k/uL ESR (0-20) mm/Hr Sodium 134 L (137-145) mmol/L Potassium 5.0 (3.5-5.1) mmol/L Chloride 106 (98-107) mmol/L Carbon Dioxide 16 L (22-30) mmol/L Anion Gap 12 mmol/L BUN 30 H (9-20) mg/dL Creatinine 3.44 H (0.66-1.25) mg/dL Est GFR (CKD-EPI)AfAm 20 (>60 ml/min/1.73 sqM) Est GFR (CKD-EPI)NonAf 17 (>60 ml/min/1.73 sqM) Glucose 161 H (74-99) mg/dL Plasma Lactic Acid Kojo 2.9 H* (0.7-2.0) mmol/L Calcium 9.6 (8.4-10.2) mg/dL Total Bilirubin 0.8 (0.2-1.3) mg/dL AST 30 (17-59) U/L ALT 21 (4-49) U/L Alkaline Phosphatase 86 (38-126) U/L Total Protein 6.6 (6.3-8.2) g/dL Albumin 3.7 (3.5-5.0) g/dL Procalcitonin (0.02-0.50) ng/mL 04/17/24 04/17/24 Range/Units 00:47 00:47 WBC (3.8-10.6) k/uL RBC (4.30-5.90) m/uL Hgb (13.0-17.5) gm/dL Hct (39.0-53.0) % MCV (80.0-100.0) fL MCH (25.0-35.0) pg MCHC (31.0-37.0) g/dL RDW (11.5-15.5) % Plt Count (150-450) k/uL MPV Neutrophils % % Lymphocytes % % Monocytes % % Eosinophils % % Basophils % % Neutrophils # (1.3-7.7) k/uL Lymphocytes # (1.0-4.8) k/uL Monocytes # (0-1.0) k/uL Eosinophils # (0-0.7) k/uL Basophils # (0-0.2) k/uL ESR 61 H (0-20) mm/Hr Sodium (137-145) mmol/L Potassium (3.5-5.1) mmol/L Chloride (98-107) mmol/L Carbon Dioxide (22-30) mmol/L Anion Gap mmol/L BUN (9-20) mg/dL Creatinine (0.66-1.25) mg/dL Est GFR (CKD-EPI)AfAm (>60 ml/min/1.73 sqM) Est GFR (CKD-EPI)NonAf (>60 ml/min/1.73 sqM) Glucose (74-99) mg/dL Plasma Lactic Acid Kojo (0.7-2.0) mmol/L Calcium (8.4-10.2) mg/dL Total Bilirubin (0.2-1.3) mg/dL AST (17-59) U/L ALT (4-49) U/L Alkaline Phosphatase (38-126) U/L Total Protein (6.3-8.2) g/dL Albumin (3.5-5.0) g/dL Procalcitonin 1.41 H (0.02-0.50) ng/mL - EKG Data -: EKG Interpreted by Me (EKG is sinus tachycardia 131 [place] 155 QRS 76 QTc 373) - Radiology Data Radiology results: report reviewed (Chest x-ray is negative for acute disease), image reviewed Disposition Clinical Impression: Sepsis, Fever, Urinary retention, UTI (urinary tract infection), Leukocytosis, Acute renal failure (ARF) Disposition: ADMITTED IP TO THIS HOSP Condition: Serious Is patient prescribed a controlled substance at d/c from ED?: No Time of Disposition: 02:30
[2024-04-17] MEDS: SODIUM CHLORIDE 0.9% 1,000 ML IV STA ×2 (00:51→02:44)
[2024-04-17] MEDS: SODIUM CHLORIDE 0.9% 500 ML 500 ML IV STA (00:53)
[2024-04-17] MEDS: ACETAMINOPHEN IV (For NPO) 1,000 MG in EMPTY BAG 1 BAG IVPB ONE (01:19)
[2024-04-17 01:22] LABS: Basophils # (A) 0.1 k/uL (0-0.2); Basophils % (A) 0 %; Eosinophils # (A) 0.1 k/uL (0-0.7); Eosinophils % (A) 0 %; HCT 47.3 % (39.0-53.0); HGB 15.5 gm/dL (13.0-17.5); Lymphocytes # (A) 0.6 k/uL (1.0-4.8); Lymphocytes % (A) 2 %; MCH 30.9 pg (25.0-35.0); MCHC 32.8 g/dL (31.0-37.0); MCV 93.9 fL (80.0-100.0); Mean Platelet Volume 7.8; Monocytes # (A) 1.6 k/uL (0-1.0); Monocytes % (A) 4 %; Neutrophils # (A) 36.7 k/uL (1.3-7.7); Neutrophils % (A) 93 %; Platelet Count 291 k/uL (150-450); RBC 5.04 m/uL (4.30-5.90); RDW 13.6 % (11.5-15.5); WBC 39.3 k/uL (3.8-10.6)
[2024-04-17] MEDS: IBUPROFEN IV 800 MG in SODIUM CHLORIDE 0.9% 250 ML IV ONE (01:39)
[2024-04-17 02:10] LABS: ALT 21 U/L (4-49); AST 30 U/L (17-59); African American GFR (CKD) 20 (>60 ml/min/1.73 sqM); Albumin 3.7 g/dL (3.5-5.0); Alkaline Phosphatase 86 U/L (38-126); Anion Gap 12 mmol/L; Blood Urea Nitrogen 30 mg/dL (9-20); Calcium 9.6 mg/dL (8.4-10.2); Carbon Dioxide 16 mmol/L (22-30); Chloride 106 mmol/L (98-107); Glucose 161 mg/dL (74-99); Non-African American GFR(CKD) 17 (>60 ml/min/1.73 sqM); Sodium 134 mmol/L (137-145); Total Bilirubin 0.8 mg/dL (0.2-1.3); Total Protein 6.6 g/dL (6.3-8.2)
[2024-04-17] MEDS ORDERED: MORPHINE SULFATE 4 MG/ML SYRINGE IV PRN (02:25)
[2024-04-17] MEDS ORDERED: NALOXONE 0.4 MG/ML 1 ML VIAL IV PRN (02:25)
[2024-04-17 03:11] LABS: Appearance,Urine Turbid (Clear); Bacteria,Urine Many /hpf; Bilirubin,Urine Negative (Negative); Blood,Urine Moderate (Negative); Color,Urine Light Orange; Glucose,Urine (UA) Negative (Negative); Ketones,Urine Negative (Negative); Leukocyte Esterase,Urine Large (Negative); Mucus,Urine Occasional /hpf; Nitrite,Urine Negative (Negative); Protein,Urine 3+ (Negative); RBC,Urine >182 /hpf (0-5); Urobilinogen,Urine <2.0 mg/dL (<2.0); WBC,Urine >182 /hpf (0-5)
[2024-04-17] MEDS: SODIUM CHLORIDE 0.9% 1,500 ML IV ONE (03:26)
[2024-04-17] MEDS: SODIUM CHLORIDE 0.9% 1,000 ML IV SCH (03:26)
--- NOTE | 2024-04-17 03:41 | XR ---
EXAM: XR Chest, 1 View CLINICAL HISTORY: ITS.REASON XR Reason: cough TECHNIQUE: Frontal view of the chest. COMPARISON: No relevant prior studies available. FINDINGS: Lungs: No consolidation or mass. Prominent interstitial markings Pleural space: No acute findings. Heart: cardiomegaly. Bones/joints: No acute findings. IMPRESSION: Prominent interstitial markings
[2024-04-17] MEDS: PANTOPRAZOLE 40 MG/10 ML VIAL IV SCH (07:45)
[2024-04-17 11:27] LABS: Glucose,Whole Blood 136 mg/dL (70-110)
[2024-04-17] MEDS: INSULIN ASPART (NovoLOG) 100 UNIT/ML VIAL SQ SCH (11:27)
--- NOTE | 2024-04-17 12:36 | US ---
EXAMINATION TYPE: US kidneys/renal and bladder DATE OF EXAM: 04/17/2024 COMPARISON: NONE CLINICAL INDICATION: Male, 68 years old with history of Spring; SPRING septic. TECHNIQUE: Grayscale and color Doppler imaging of the bilateral kidneys and urinary bladder: FINDINGS: EXAM MEASUREMENTS: Right Kidney: 8.6 x 6.3 x 3.8 cm Left Kidney: 9.7 x 5.1 x 4.4 cm Incidental finding gallstones visualized. Right Kidney: Atrophic limited due to bowel gas. Left Kidney: Mild amount of hydronephrosis visualized. Bladder: Cather visualized. IMPRESSION: 1. Mild renal atrophy. 2. Limited evaluation the right kidney. 3. Cholelithiasis. 4. Mild left-sided hydronephrosis without renal calcification. [facility], , 04/17/2024 12:34 PM
--- NOTE | 2024-04-17 12:36 | P.NPCON ---
History of Present Illness - Reason for Consult Consult date: 04/17/24 acute renal failure - Chief Complaint Fever - History of Present Illness This is a 68-year-old male to the ER for evaluation patient presents today for evaluation regards to altered mental status history of dementia with fever. Patient unable to provide history which was obtained from chart. Vital signs - reviewed General: no acute distress. HEENT: Head exam is unremarkable. On nasal cannula. LUNGS: No audible rhonchi or wheezes. HEART: Regular rate and rhythm. ABDOMEN: Nontender. EXTREMITITES: no edema. Review of Systems ROS unobtainable: due to mental status Past Medical History Past Medical History: Unable to Obtain, COPD, CVA/TIA, Dementia, Hearing Disorder / Deafness, Hyperlipidemia, Hypertension, Prostate Disorder Additional Past Medical History / Comment(s): AMS changes/ischemic encephalopathy/vascular dementia/CPD/ASHD/presbycusis. He had a LP performed and was transferred to [facility]. Discharge diagnosis from [facility] list: severe generalized intracranial leukoencephalopathy/cerebral ventriculomegaly/cerebral atrophy/neurogenic dysphagia/UTI/urinary retention/constipation/suspected dysautonomally, acute encephalopathy. [facility] states they were also told uncontrolled HTN/hydrocephalus/advance dementia/uti. Other hx: 2013 CVA without residual, [place] bilaterally/speak in R ear, occasional urinary incontinence/frequency, CKD, nephrolithiasis, BPH, occasional back pain. History of Any Multi-Drug Resistant Organisms: None Reported Past Surgical History: Appendectomy Additional Past Surgical History / Comment(s): colonoscopy, urology surgery Past Anesthesia/Blood Transfusion Reactions: No Reported Reaction Past Psychological History: Anxiety, Depression Additional Psychological History / Comment(s): Pt has legal guardians/document on chart. Pt currently at [facility]. He uses a walker occasionally. He takes his pills crushed. He is on aspiration and fall precautions. [facility] diagnosis list states psychiatric disorder. Smoking Status: Former smoker Past Alcohol Use History: None Reported Additional Past Alcohol Use History / Comment(s): Pt started smoking as a teen and was a ppd smoker. Pt has not smoked since 03/23/20. Past Drug Use History: None Reported - Past Family History Mother Family Medical History: Dementia, Hypertension Father Family Medical History: Cancer Additional Family Medical History / Comment(s): Lung cancer. Father was a smoker. Medications and Allergies Home Medications Medication Instructions Recorded Confirmed Type Atorvastatin [Lipitor] 10 mg PO HS 04/14/20 01/04/24 History Folic Acid 0.4 mg PO DAILY 04/14/20 01/04/24 History Thiamine HCl [Vitamin B-1] 100 mg PO DAILY 04/14/20 01/04/24 History Acetaminophen Tab [Tylenol] 650 mg PO Q6H PRN 06/14/20 01/04/24 History QUEtiapine [SEROquel] 100 mg PO HS 02/20/23 01/04/24 History Sertraline [Zoloft] 25 mg PO DAILY 02/20/23 01/04/24 History Docusate [Colace] 100 mg PO BID #60 capsule 02/21/23 01/04/24 Rx HYDROcodone/APAP 5-325MG [Story 1 tab PO BID PRN 01/04/24 01/04/24 History 5-325] HYDROcodone/APAP 5-325MG [Story 1 tab PO Q8H 01/04/24 01/04/24 History 5-325] Lactose-Reduced Food [Ensure Plus] 237 ml PO DAILY 01/04/24 01/04/24 History Magnesium Hydroxide [Milk of 2,400 mg PO DAILY PRN 01/04/24 01/04/24 History Magnesia] Na Phos,M-B/Na Phos,Di-Ba [Fleet 133 ml RECTAL DAILY PRN 01/04/24 01/04/24 History Adult] Omeprazole [PriLOSEC] 20 mg PO DAILY 01/04/24 01/04/24 History QUEtiapine [SEROquel] 50 mg PO BID@0900,1400 01/04/24 01/04/24 History Sennosides/Docusate Sodium [Senna 2 tab PO HS 01/04/24 01/04/24 History Plus 8.6-50 mg Tablet] Sertraline HCl [Zoloft] 50 mg PO DAILY 01/04/24 01/04/24 History bisacodyL [Dulcolax] 10 mg RECTAL DAILY PRN 01/04/24 01/04/24 History metFORMIN HCL ER [Glucophage XR] 500 mg PO DAILY 01/04/24 01/04/24 History Aspirin 81 mg PO BID #60 tab 01/08/24 Rx Docusate [Colace] 100 mg PO BID #60 capsule 01/08/24 Rx HYDROcodone/APAP 5-325MG [Story 1 - 2 tab PO Q6HR PRN #32 tab 01/08/24 Rx 5-325] Aspirin 81 mg PO DAILY #0 01/12/24 01/04/24 Rx Famotidine [Pepcid] 20 mg PO BID tab 01/12/24 Rx levETIRAcetam [Keppra] 500 mg PO Q12HR #60 tab 01/12/24 Rx Allergies Allergy/AdvReac Type Severity Reaction Status Date / Time No Known Allergies Allergy Verified 04/17/24 00:30 Physical Exam Vitals: Vital Signs Temp Pulse Pulse Resp BP BP Pulse Ox 04/17/24 07:39 97.6 F 99 18 102/60 93 L 04/17/24 05:40 97.6 F 100 20 92/58 95 04/17/24 05:00 97.8 F 111 H 15 107/65 95 04/17/24 04:30 112 H 16 114/71 95 04/17/24 04:00 112 H 16 99/71 95 04/17/24 03:42 112 H 17 98/52 93 L 04/17/24 03:30 113 H 19 86/56 95 04/17/24 03:20 113 H 19 83/58 95 04/17/24 03:00 118 H 19 73/55 92 L 04/17/24 02:50 120 H 18 88/62 90 L 04/17/24 02:40 122 H 17 110/64 92 L 04/17/24 02:10 99.2 F 126 H 15 82/61 92 L 04/17/24 02:00 130 H 14 91/57 91 L 04/17/24 01:50 129 H 14 91/57 92 L 04/17/24 01:30 130 H 18 84/65 92 L 04/17/24 01:15 130 H 17 99/65 92 L 04/17/24 01:00 133 H 18 85/64 95 04/17/24 00:49 130 H 17 74/47 95 04/17/24 00:23 99.9 F H 133 H 19 85/72 94 L Intake and Output 04/16/24 04/17/24 04/17/24 22:59 06:59 14:59 Other: Voiding Method Indwelling Catheter Weight 103.419 kg Results - Lab Results Most recent lab results Calcium 9.6 mg/dL (8.4-10.2) 04/17/24 00:47 04/17/24 00:47 04/17/24 00:47 Assessment and Plan Assessment: 1. HARMEET secondary to ATN from sepsis. Baseline creatinine 0.9, presented 3.4. UA concerning for UTI. 2. Metabolic Acidosis due to HARMEET and lactic acidosis 3. Sepsis with UTI 4. Metabolic Encephalopathy 5. Hypotension Plan: Continue IVF and ABX Currently with Quinones, strict I/O's Daily BMP, supportive care No indication for HD If acidosis worsens will consider bicarb drip
--- NOTE | 2024-04-17 14:21 | CT ---
EXAMINATION TYPE: CT abdomen pelvis wo con DATE OF EXAM: 04/17/2024 COMPARISON: None INDICATION: Abdominal pain DLP: 1324.4 mGycm, Automated exposure control for dose reduction was used. CONTRAST: 0 mL of Isovue 300. Study performed without Oral Contrast TECHNIQUE: Axial images were obtained from above the diaphragm to the pubic rami in the axial plane a t 5 mm thick sections. Reconstructed images are reviewed on the computer in the coronal plane. FINDINGS: Limited CT sections are obtained the lung bases. There is a minimal bilateral pleural effusions.. CT ABDOMEN: Liver: Normal Spleen: Normal Pancreas: Normal Adrenal glands: The adrenal glands are normal. Gallbladder: There is some nodularity of the gallbladder wall. Consider workup for neoplasm. Polyps a nd noncalcified stones are within the differential. No significant inflammatory changes are adjacent. Very minimal inflammatory changes may be along the anterior border. Kidneys: No masses are evident. There is moderate right hydronephrosis and moderate right hydroureter . Hydroureter extends to the pelvis. The insertion on the urinary bladder is poorly visualized due to beam hardening artifact from right hip prosthesis. There is mild left hydronephrosis. Scattered punc farias nonobstructing renal stones are in the superior pole left kidney. Mild to moderate left hydroure ter is present extending to the distal pelvis. The insertion is not well-visualized due to hip prosth esis. No cysts are present. Aorta: Vascular calcification is within the aorta. Inferior vena cava: Normal. CT PELVIS: Loops of bowel within the abdomen and pelvis are unremarkable.. This study is without oral contra st limiting bowel evaluation. Appendix: Not identified. No suspicious dilated tubular structure or inflammatory change is evident Urinary bladder: Decompressed with a catheter. There is very limited evaluation due to significant be am hardening artifact through this level from bilateral hip prostheses Genitourinary structures: The prostate is not well visualized. Osseous structures: No suspicious lytic or sclerotic lesions. IMPRESSION: 1. Moderate right and mild to moderate left hydronephrosis with moderate bilateral hydroureter. Obst ructing etiology is not identified at the level of the urinary bladder due to limitation from bilater al hip prostheses. Urinary bladder is decompressed with a catheter. 2. There is some apparent nodularity of the gallbladder wall. Minimal adjacent inflammatory change ma y be present. Additional evaluation with ultrasound is recommended to evaluate for neoplasm. Polyps and noncalcified gallstones within the differential. 3. Nonobstructing punctate left renal stones [facility], Workstation: [facility], 04/17/2024 2:18 PM
[2024-04-17] MEDS ORDERED: ACETAMINOPHEN TAB 325 MG TAB PO PRN (15:04)
--- NOTE | 2024-04-17 15:51 | P.HPIM ---
History of Present Illness History of present illness; 68-year-old male with a past medical history of type 2 diabetes, seizure disorder, mood disorder, hyperlipidemia, and GERD presents for evaluation of altered mental status. Patient is sleeping and not arousable during time of interview. Per the [facility] (where the patient normally stays) the patient typically is A&O x 2 and almost fully deaf so normally communicates through whiteboard. Per the patient's [id number] he has an extensive history of urinary retention and UTIs that have been a big issue in the past. Per the [id number] the patient has had a catheter for about 3 years which she has hospitalized in the past due to inability to remove or replace catheter. Initial lab work from the ER was significant for WBC 39.3, neutrophils 36.7, sodium 134, creatinine 3.44, glucose 161, lactic acid 2.9--> 1.5, UA showed large leukocyte esterase, greater than 182 RBC and WBC, many urine bacteria, 3+ protein. EKG done in the ER showed heart rate of 131 bpm, no ST segment elevation or depression seen, no T-wave inversions seen. Sinus tachycardia with occasional supraventricular premature complexes. ER CXR: Prominent interstitial markings. ER CT ABD: Moderate right and mild to moderate left hydronephrosis with moderate bilateral hydroureter. Some apparent nodularity of the gallbladder wall. Minimal adjacent inflammatory change may be present. Patient admitted to internal medicine service REVIEW OF SYSTEMS: Unable to get at time of interview as patient was sleeping and not arousable. PHYSICAL EXAMINATION: GENERAL: The patient is alert and oriented x3, not in any acute distress. Well developed, well nourished. HEENT: Pupils are round and equally reacting to light. EOMI. No scleral icterus. No conjunctival pallor. Normocephalic, atraumatic. No pharyngeal erythema. No thyromegaly. CARDIOVASCULAR: S1 and S2 present. No murmurs, rubs, or gallops. PULMONARY: Chest is clear to auscultation b/l, no wheezing or crackles. ABDOMEN: Soft, nontender, nondistended, normoactive bowel sounds. No palpable organomegaly. MUSCULOSKELETAL: No joint swelling or deformity. EXTREMITIES: No cyanosis, clubbing, or pedal edema. NEUROLOGICAL: Gross neurological examination did not reveal any focal deficits. SKIN: No rashes. Assessment & Plan: Active: #Sepsis and UTI: Continue aggressive fluid resuscitation Received Rocephin 2 g in the ED (04/17), will continue with Rocephin 2 g tomorrow ID on consult, appreciate further recommendations Continue to monitor for worsening signs of infection #HARMEET: Likely in the setting of hypotension versus sepsis/UTI versus nephrosclerosis versus diabetic nephropathy Baseline creatinine 0.951.17 Continue NS 130 cc/h Nephrology on consult, appreciate further recommendations CT abdomen shows bilateral hydronephrosis and hydroureter #Abnormal CT finding showing nodularity of the gallbladder wall: Ordered gallbladder ultrasound Follow-up results Continue to monitor Chronic: #Type 2 diabetes: Continue sliding scale Accu-Cheks #Seizure disorder: Continue home medication #Hyperlipidemia: Continue home medication #GERD: Continue home medication #Mood disorder: Continue home medication F: NS 130 cc/h E: None N: Clear liquid diet DVT ppx: Lovenox 40 mg SQ daily GI ppx: Protonix 40 mg IV daily Dispo: Pending clinical course Tram William MD PGY-1 FM Attestation I have seen and examined this patient with my resident , discussed the same with the resident/ABDOULAYE, and agree with the dictator's assessment and plan as written Dr. Ric guerrero Dictation was produced using [employer] dictation software. please excuse any grammatical, word or spelling errors. Past Medical History Past Medical History: Unable to Obtain, COPD, CVA/TIA, Dementia, Hearing Disorder / Deafness, Hyperlipidemia, Hypertension, Prostate Disorder Additional Past Medical History / Comment(s): AMS changes/ischemic encephalopathy/vascular dementia/CPD/ASHD/presbycusis. He had a LP performed and was transferred to [facility]. Discharge diagnosis from [facility] list: severe generalized intracranial leukoencephalopathy/cerebral ventriculomegaly/cerebral atrophy/neurogenic dysphagia/UTI/urinary retention/constipation/suspected dysautonomally, acute encephalopathy. [facility] states they were also told uncontrolled HTN/hydrocephalus/advance dementia/uti. Other hx: 2013 CVA without residual, [place] bilaterally/speak in R ear, occasional urinary incontinence/frequency, CKD, nephrolithiasis, BPH, occasional back pain. History of Any Multi-Drug Resistant Organisms: None Reported Past Surgical History: Appendectomy Additional Past Surgical History / Comment(s): colonoscopy, urology surgery Past Anesthesia/Blood Transfusion Reactions: No Reported Reaction Past Psychological History: Anxiety, Depression Additional Psychological History / Comment(s): Pt has legal guardians/document on chart. Pt currently at [facility]. He uses a walker occasionally. He takes his pills crushed. He is on aspiration and fall precautions. [facility] diagnosis list states psychiatric disorder. Smoking Status: Former smoker Past Alcohol Use History: None Reported Additional Past Alcohol Use History / Comment(s): Pt started smoking as a teen and was a ppd smoker. Pt has not smoked since 03/23/20. Past Drug Use History: None Reported - Past Family History Mother Family Medical History: Dementia, Hypertension Father Family Medical History: Cancer Additional Family Medical History / Comment(s): Lung cancer. Father was a smoker. Medications and Allergies Home Medications Medication Instructions Recorded Confirmed Type Atorvastatin [Lipitor] 10 mg PO HS 04/14/20 04/17/24 History Folic Acid 0.4 mg PO DAILY 04/14/20 04/17/24 History Thiamine HCl [Vitamin B-1] 300 mg PO DAILY 04/14/20 04/17/24 History Acetaminophen Tab [Tylenol] 650 mg PO Q6H PRN 06/14/20 04/17/24 History QUEtiapine [SEROquel] 100 mg PO HS 02/20/23 04/17/24 History Sertraline [Zoloft] 25 mg PO DAILY 02/20/23 04/17/24 History Lactose-Reduced Food [Ensure Plus] 237 ml PO DAILY 01/04/24 04/17/24 History Omeprazole [PriLOSEC] 20 mg PO DAILY@0600 01/04/24 04/17/24 History QUEtiapine [SEROquel] 50 mg PO BID 01/04/24 04/17/24 History Sennosides/Docusate Sodium [Senna 2 tab PO HS 01/04/24 04/17/24 History Plus 8.6-50 mg Tablet] Sertraline HCl [Zoloft] 50 mg PO DAILY 01/04/24 04/17/24 History metFORMIN HCL ER [Glucophage XR] 500 mg PO DAILY 01/04/24 04/17/24 History HYDROcodone/APAP 5-325MG [[place] 1 - 2 tab PO Q6HR PRN #32 tab 01/08/24 04/17/24 Rx 5-325] Aspirin 81 mg PO DAILY #0 01/12/24 04/17/24 Rx levETIRAcetam [Keppra] 500 mg PO Q12HR #60 tab 01/12/24 04/17/24 Rx Docusate [Colace] 100 mg PO Q12H 04/17/24 04/17/24 History Famotidine [Pepcid] 20 mg PO BID@0600,2100 04/17/24 04/17/24 History Allergies Allergy/AdvReac Type Severity Reaction Status Date / Time No Known Allergies Allergy Verified 04/17/24 13:41 Physical Exam Vitals: Vital Signs Temp Pulse Pulse Resp BP BP Pulse Ox 04/17/24 07:39 97.6 F 99 18 102/60 93 L 04/17/24 05:40 97.6 F 100 20 92/58 95 04/17/24 05:00 97.8 F 111 H 15 107/65 95 04/17/24 04:30 112 H 16 114/71 95 04/17/24 04:00 112 H 16 99/71 95 04/17/24 03:42 112 H 17 98/52 93 L 04/17/24 03:30 113 H 19 86/56 95 04/17/24 03:20 113 H 19 83/58 95 04/17/24 03:00 118 H 19 73/55 92 L 04/17/24 02:50 120 H 18 88/62 90 L 04/17/24 02:40 122 H 17 110/64 92 L 04/17/24 02:10 99.2 F 126 H 15 82/61 92 L 04/17/24 02:00 130 H 14 91/57 91 L 04/17/24 01:50 129 H 14 91/57 92 L 04/17/24 01:30 130 H 18 84/65 92 L 04/17/24 01:15 130 H 17 99/65 92 L 04/17/24 01:00 133 H 18 85/64 95 04/17/24 00:49 130 H 17 74/47 95 04/17/24 00:23 99.9 F H 133 H 19 85/72 94 L Intake and Output 04/16/24 04/17/24 04/17/24 22:59 06:59 14:59 Other: Weight 103.419 kg Results CBC & Chem 7: 04/18/24 05:39 04/18/24 05:39 Labs: Abnormal Lab Results - Last 24 Hours (Table) 04/17/24 04/17/24 04/17/24 Range/Units 00:47 00:47 00:47 WBC 39.3 H (3.8-10.6) k/uL Neutrophils # 36.7 H (1.3-7.7) k/uL Lymphocytes # 0.6 L (1.0-4.8) k/uL Monocytes # 1.6 H (0-1.0) k/uL Sodium 134 L (137-145) mmol/L Carbon Dioxide 16 L (22-30) mmol/L BUN 30 H (9-20) mg/dL Creatinine 3.44 H (0.66-1.25) mg/dL Glucose 161 H (74-99) mg/dL Plasma Lactic Acid Kojo 2.9 H* (0.7-2.0) mmol/L Urine Protein (Negative) Urine Blood (Negative) Ur Leukocyte Esterase (Negative) Urine RBC (0-5) /hpf Urine WBC (0-5) /hpf Urine Bacteria (None) /hpf Urine Mucus (None) /hpf 04/17/24 Range/Units 02:48 WBC (3.8-10.6) k/uL Neutrophils # (1.3-7.7) k/uL Lymphocytes # (1.0-4.8) k/uL Monocytes # (0-1.0) k/uL Sodium (137-145) mmol/L Carbon Dioxide (22-30) mmol/L BUN (9-20) mg/dL Creatinine (0.66-1.25) mg/dL Glucose (74-99) mg/dL Plasma Lactic Acid Kojo (0.7-2.0) mmol/L Urine Protein 3+ H (Negative) Urine Blood Moderate H (Negative) Ur Leukocyte Esterase Large H (Negative) Urine RBC >182 H (0-5) /hpf Urine WBC >182 H (0-5) /hpf Urine Bacteria Many H (None) /hpf Urine Mucus Occasional H (None) /hpf Thrombosis Risk Factor Assmnt - Choose All That Apply Any of the Below Risk Factors Present?: Yes Each Factor Represents 1 point: Abnormal pulmonary function (COPD), Medical pt on bed rest, Obesity (BMI >25), Sepsis (< 1month) Each Risk Factor Represents 2 Points: Age 61-74 years Other congenital or acquired thrombophilia - If yes, enter type in comment: No Thrombosis Risk Factor Assessment Total Risk Factor Score: 6 Thrombosis Risk Factor Assessment Level: High Risk
[2024-04-17 16:22] LABS: Glucose,Whole Blood 108 mg/dL (70-110)
[2024-04-17] MEDS: DOCUSATE 100 MG CAP PO SCH (17:30)
[2024-04-17] MEDS: QUEtiapine 50 MG TAB PO SCH (19:21)
[2024-04-17] MEDS: levETIRAcetam 500 MG TAB PO SCH (19:21)
[2024-04-17] MEDS: ATORVASTATIN 10 MG TAB PO SCH (19:21)
[2024-04-17] MEDS: FAMOTIDINE 20 MG TAB PO SCH (19:23)
[2024-04-17] MEDS: QUEtiapine 100 MG TAB PO SCH (19:30)
[2024-04-17 19:46] LABS: Glucose,Whole Blood 109 mg/dL (70-110)
[2024-04-18] MEDS: PANTOPRAZOLE 40 MG TABLET PO SCH (04:40)
[2024-04-18 06:24] LABS: Basophils % (A) 0 %; Eosinophils # (A) 0.2 k/uL (0-0.7); Eosinophils % (A) 1 %; HCT 40.9 % (39.0-53.0); HGB 13.1 gm/dL (13.0-17.5); Hypochromasia Slight; Lymphocytes # (A) 0.8 k/uL (1.0-4.8); Lymphocytes % (A) 5 %; MCV 96.8 fL (80.0-100.0); Mean Platelet Volume 7.6; Monocytes # (A) 0.7 k/uL (0-1.0); Monocytes % (A) 5 %; Neutrophils # (A) 14.2 k/uL (1.3-7.7); Neutrophils % (A) 88 %; Platelet Count 185 k/uL (150-450); RBC 4.23 m/uL (4.30-5.90); RDW 13.9 % (11.5-15.5)
[2024-04-18 06:34] LABS: Glucose,Whole Blood 97 mg/dL (70-110)
[2024-04-18 06:41] LABS: ALT 20 U/L (4-49); AST 36 U/L (17-59); African American GFR (CKD) 65 (>60 ml/min/1.73 sqM); Albumin 2.8 g/dL (3.5-5.0); Alkaline Phosphatase 84 U/L (38-126); Anion Gap 6 mmol/L; Blood Urea Nitrogen 22 mg/dL (9-20); Calcium 8.3 mg/dL (8.4-10.2); Carbon Dioxide 21 mmol/L (22-30); Chloride 111 mmol/L (98-107); Glucose 88 mg/dL (74-99); Magnesium 1.8 mg/dL (1.6-2.3); Non-African American GFR(CKD) 56 (>60 ml/min/1.73 sqM); Phosphorus 2.7 mg/dL (2.5-4.5); Potassium 3.9 mmol/L (3.5-5.1); Sodium 138 mmol/L (137-145); Total Bilirubin 0.3 mg/dL (0.2-1.3); Total Protein 5.5 g/dL (6.3-8.2)
[2024-04-18] MEDS: SERTRALINE 50 MG TAB PO SCH (07:45)
[2024-04-18] MEDS: SERTRALINE 25 MG TAB PO SCH (07:45)
[2024-04-18] MEDS: FOLIC ACID 1 MG TAB PO SCH (07:45)
[2024-04-18] MEDS: ASPIRIN 81 MG PO SCH (07:45)
[2024-04-18] MEDS: DOCUSATE 100 MG CAP PO SCH (07:45)
[2024-04-18] MEDS: THIAMINE 100 MG TAB PO SCH (07:45)
[2024-04-18] MEDS: ENOXAPARIN 40 MG/0.4 ML SYRINGE SQ SCH (07:45)
--- NOTE | 2024-04-18 09:59 | P.CONS ---
History of Present Illness - Reason for Consult Consult date: 04/17/24 Complicated UTI Requesting physician: Ric Diaz - Chief Complaint Mental status changes x 1 day - History of Present Illness Patient is a 68-year-old male with a past medical history significant for CVA TIA dementia hypertension hyperlipidemia prostate disorder as well as hearing disorder and long term resident patient has been sent to the ER from the local long term for evaluation of mental status changes and apparently a fever patient said that has been going on for a day or 2 before the patient has been brought to the hospital on arrival to the ER the patient did have a temperature of 99.9 F patient was mildly tachycardic but not hypotensive or hypoxic he did have elevated white count 39.3 with a left shift BUN and creatinine has been elevated liver isms are normal did have significantly positive UA influenza RSV COVID testing was negative patient did have chest x- ray, interstitial marking abdominal bladder ultrasound mild renal atrophy ch olelithiasis mild left-sided hydronephrosis without any calcification patient has been started on Rocephin infectious disease was consulted for further management of antibiotic therapy most information has been obtained from review the chart and talking to nursing staff as the patient did not answer any question he was noticed to have some lower abdominal discomfort/tenderness Review of Systems Positive points has been mentioned in HPI complete review could not be obtained because of his underlying mental status Past Medical History Past Medical History: Unable to Obtain, COPD, CVA/TIA, Dementia, Hearing Disorder / Deafness, Hyperlipidemia, Hypertension, Prostate Disorder Additional Past Medical History / Comment(s): AMS changes/ischemic encephalopathy/vascular dementia/CPD/ASHD/presbycusis. He had a LP performed and was transferred to [facility]. Discharge diagnosis from [facility] list: severe generalized intracranial leukoencephalopathy/cerebral ventriculomegaly/cerebral atrophy/neurogenic dysphagia/UTI/urinary retention/constipation/suspected dysautonomally, acute encephalopathy. [facility] states they were also told uncontrolled HTN/hydrocephalus/advance dementia/uti. Other hx: 2013 CVA without residual, [place] bilaterally/speak in R ear, occasional urinary incontinence/frequency, CKD, nephrolithiasis, BPH, occasional back pain. History of Any Multi-Drug Resistant Organisms: None Reported Past Surgical History: Appendectomy Additional Past Surgical History / Comment(s): colonoscopy, urology surgery Past Anesthesia/Blood Transfusion Reactions: No Reported Reaction Past Psychological History: Anxiety, Depression Additional Psychological History / Comment(s): Pt has legal guardians/document on chart. Pt currently at [facility]. He uses a walker occasionally. He takes his pills crushed. He is on aspiration and fall precautions. [facility] diagnosis list states psychiatric disorder. Smoking Status: Former smoker Past Alcohol Use History: None Reported Additional Past Alcohol Use History / Comment(s): Pt started smoking as a teen and was a ppd smoker. Pt has not smoked since 03/23/20. Past Drug Use History: None Reported - Past Family History Mother Family Medical History: Dementia, Hypertension Father Family Medical History: Cancer Additional Family Medical History / Comment(s): Lung cancer. Father was a smoker. Medications and Allergies Home Medications Medication Instructions Recorded Confirmed Type Atorvastatin [Lipitor] 10 mg PO HS 04/14/20 04/17/24 History Folic Acid 0.4 mg PO DAILY 04/14/20 04/17/24 History Thiamine HCl [Vitamin B-1] 300 mg PO DAILY 04/14/20 04/17/24 History Acetaminophen Tab [Tylenol] 650 mg PO Q6H PRN 06/14/20 04/17/24 History QUEtiapine [SEROquel] 100 mg PO HS 02/20/23 04/17/24 History Sertraline [Zoloft] 25 mg PO DAILY 02/20/23 04/17/24 History Lactose-Reduced Food [Ensure Plus] 237 ml PO DAILY 01/04/24 04/17/24 History Omeprazole [PriLOSEC] 20 mg PO DAILY@0600 01/04/24 04/17/24 History QUEtiapine [SEROquel] 50 mg PO BID 01/04/24 04/17/24 History Sennosides/Docusate Sodium [Senna 2 tab PO HS 01/04/24 04/17/24 History Plus 8.6-50 mg Tablet] Sertraline HCl [Zoloft] 50 mg PO DAILY 01/04/24 04/17/24 History metFORMIN HCL ER [Glucophage XR] 500 mg PO DAILY 01/04/24 04/17/24 History HYDROcodone/APAP 5-325MG [[place] 1 - 2 tab PO Q6HR PRN #32 tab 01/08/24 04/17/24 Rx 5-325] Aspirin 81 mg PO DAILY #0 01/12/24 04/17/24 Rx levETIRAcetam [Keppra] 500 mg PO Q12HR #60 tab 01/12/24 04/17/24 Rx Docusate [Colace] 100 mg PO Q12H 04/17/24 04/17/24 History Famotidine [Pepcid] 20 mg PO BID@0600,2100 04/17/24 04/17/24 History Allergies Allergy/AdvReac Type Severity Reaction Status Date / Time No Known Allergies Allergy Verified 04/17/24 13:41 Physical Exam Vitals: Vital Signs Temp Pulse Pulse Resp BP BP Pulse Ox 04/17/24 11:42 97.2 F L 94 17 110/68 97 04/17/24 07:39 97.6 F 99 18 102/60 93 L 04/17/24 05:40 97.6 F 100 20 92/58 95 04/17/24 05:00 97.8 F 111 H 15 107/65 95 04/17/24 04:30 112 H 16 114/71 95 04/17/24 04:00 112 H 16 99/71 95 04/17/24 03:42 112 H 17 98/52 93 L 04/17/24 03:30 113 H 19 86/56 95 04/17/24 03:20 113 H 19 83/58 95 04/17/24 03:00 118 H 19 73/55 92 L 04/17/24 02:50 120 H 18 88/62 90 L 04/17/24 02:40 122 H 17 110/64 92 L 04/17/24 02:10 99.2 F 126 H 15 82/61 92 L 04/17/24 02:00 130 H 14 91/57 91 L 04/17/24 01:50 129 H 14 91/57 92 L 04/17/24 01:30 130 H 18 84/65 92 L 04/17/24 01:15 130 H 17 99/65 92 L 04/17/24 01:00 133 H 18 85/64 95 04/17/24 00:49 130 H 17 74/47 95 04/17/24 00:23 99.9 F H 133 H 19 85/72 94 L Intake and Output 04/16/24 04/17/24 04/17/24 22:59 06:59 14:59 Other: Voiding Method Indwelling Catheter Weight 103.419 kg GENERAL DESCRIPTION: Elderly male lying in bed, no distress. No tachypnea or accessory muscle of respiration use. HEENT: Shows Pallor , no scleral icterus. Oral mucous membrane is dry. NECK: Trachea central, no thyromegaly. LUNGS: Unlabored breathing. Clear to auscultation anteriorly. No wheeze or crackle. HEART: S1, S2, regular rate and rhythm. No loud murmur ABDOMEN: Soft, lower abdominal tenderness EXTREMITIES: No edema of feet. SKIN: No rash, no masses palpable. NEUROLOGICAL: The patient is lethargic arousable but nonverbal orientation could not be determined Results CBC & Chem 7: 04/18/24 05:39 04/18/24 05:39 Labs: Abnormal Lab Results - Last 24 Hours (Table) 04/17/24 04/17/24 04/17/24 Range/Units 00:47 00:47 00:47 WBC 39.3 H (3.8-10.6) k/uL Neutrophils # 36.7 H (1.3-7.7) k/uL Lymphocytes # 0.6 L (1.0-4.8) k/uL Monocytes # 1.6 H (0-1.0) k/uL Sodium 134 L (137-145) mmol/L Carbon Dioxide 16 L (22-30) mmol/L BUN 30 H (9-20) mg/dL Creatinine 3.44 H (0.66-1.25) mg/dL Glucose 161 H (74-99) mg/dL POC Glucose (mg/dL) (70-110) mg/dL Plasma Lactic Acid Ko[place] 2.9 H* (0.7-2.0) mmol/L Urine Protein (Negative) Urine Blood (Negative) Ur Leukocyte Esterase (Negative) Urine RBC (0-5) /hpf Urine WBC (0-5) /hpf Urine Bacteria (None) /hpf Urine Mucus (None) /hpf 04/17/24 04/17/24 Range/Units 02:48 11:25 WBC (3.8-10.6) k/uL Neutrophils # (1.3-7.7) k/uL Lymphocytes # (1.0-4.8) k/uL Monocytes # (0-1.0) k/uL Sodium (137-145) mmol/L Carbon Dioxide (22-30) mmol/L BUN (9-20) mg/dL Creatinine (0.66-1.25) mg/dL Glucose (74-99) mg/dL POC Glucose (mg/dL) 136 H (70-110) mg/dL Plasma Lactic Acid [place]jo (0.7-2.0) mmol/L Urine Protein 3+ H (Negative) Urine Blood Moderate H (Negative) Ur Leukocyte Esterase Large H (Negative) Urine RBC >182 H (0-5) /hpf Urine WBC >182 H (0-5) /hpf Urine Bacteria Many H (None) /hpf Urine Mucus Occasional H (None) /hpf Assessment and Plan (1) Complicated UTI (urinary tract infection) Current Visit: Yes Status: Acute Code(s): N39.0 - URINARY TRACT INFECTION, SITE NOT SPECIFIED SNOMED Code(s): 34242181 (2) Leukocytosis Current Visit: Yes Status: Acute Code(s): D72.829 - ELEVATED WHITE BLOOD CELL COUNT, UNSPECIFIED SNOMED Code(s): 812308112 (3) Sepsis Current Visit: Yes Status: Acute Code(s): A41.9 - SEPSIS, UNSPECIFIED ORGANISM SNOMED Code(s): 83933622 Plan: 1patient presented to hospital with sepsis in this patient who did have fever tachycardia elevated white count source likely complicated UTI and concern for possible obstructive uropathy as patient did have elevated creatinine 2await CT of abdominal pelvis and may need urology evaluation if any evidence of hydronephrosis 3Rocephin 2 g daily to continue while waiting for the culture to finalize We will follow on clinical condition and cultures to further adjust medication if needed Thank you for this consultation we will follow the patient along with you Dictation was produced using [employer] dictation software. please excuse any grammatical, word or spelling errors.
--- NOTE | 2024-04-18 11:19 | P.PN ---
Subjective Progress Note Date: 04/18/24 Patient seen in follow-up for HARMEET. No acute events over night. Patient not able to converse due to underlying dementia. Renal function improving with IVF. Vital signs - reviewed General: no acute distress. HEENT: Head exam is unremarkable. LUNGS: No audible rhonchi or wheezes. HEART: Regular rate and rhythm. ABDOMEN: Nontender. EXTREMITITES: no edema. Objective - Vital Signs Vital signs: Vital Signs Temp 98.7 F 04/18/24 07:44 Pulse 81 04/18/24 07:44 Resp 16 04/18/24 07:44 BP 122/73 04/18/24 07:44 Pulse Ox 95 04/18/24 07:44 FiO2 Intake & Output 04/17/24 04/18/24 04/18/24 18:59 06:59 18:59 Intake Total 597 200 Output Total 1400 500 Balance -803 -500 200 Weight 105 kg Intake: Oral 597 200 Output: Urine 1400 500 Other: Voiding Method Indwelling Catheter Indwelling Catheter Indwelling Catheter - Labs CBC & Chem 7: 04/18/24 05:39 04/18/24 05:39 Labs: Abnormal Lab Results - Last 24 Hours (Table) 04/17/24 04/17/24 04/17/24 Range/Units 00:47 00:47 11:25 WBC (3.8-10.6) k/uL RBC (4.30-5.90) m/uL Neutrophils # (1.3-7.7) k/uL Lymphocytes # (1.0-4.8) k/uL ESR 61 H (0-20) mm/Hr Chloride (98-107) mmol/L Carbon Dioxide (22-30) mmol/L BUN (9-20) mg/dL Creatinine (0.66-1.25) mg/dL POC Glucose (mg/dL) 136 H (70-110) mg/dL Calcium (8.4-10.2) mg/dL Total Protein (6.3-8.2) g/dL Albumin (3.5-5.0) g/dL Procalcitonin 1.41 H (0.02-0.50) ng/mL 04/18/24 04/18/24 Range/Units 05:39 05:39 WBC 16.0 H (3.8-10.6) k/uL RBC 4.23 L (4.30-5.90) m/uL Neutrophils # 14.2 H (1.3-7.7) k/uL Lymphocytes # 0.8 L (1.0-4.8) k/uL ESR (0-20) mm/Hr Chloride 111 H (98-107) mmol/L Carbon Dioxide 21 L (22-30) mmol/L BUN 22 H (9-20) mg/dL Creatinine 1.28 H (0.66-1.25) mg/dL POC Glucose (mg/dL) (70-110) mg/dL Calcium 8.3 L (8.4-10.2) mg/dL Total Protein 5.5 L (6.3-8.2) g/dL Albumin 2.8 L (3.5-5.0) g/dL Procalcitonin (0.02-0.50) ng/mL Assessment and Plan Assessment: 1. HARMEET secondary to ATN from sepsis. Baseline creatinine 0.9, presented 3.4 now 1.3 today. UA concerning for UTI. 2. Metabolic Acidosis due to HARMEET and lactic acidosis-Improved 3. Sepsis with UTI 4. Metabolic Encephalopathy 5. Hypotension Plan: Continue IVF and ABX Currently with Quinones, strict I/O's Daily BMP, supportive care
[2024-04-18 11:44] LABS: Glucose,Whole Blood 86 mg/dL (70-110)
--- NOTE | 2024-04-18 12:22 | P.PN ---
Subjective Progress Note Date: 04/18/24 68-year-old male with a past medical history of type 2 diabetes, seizure disorder, mood disorder, hyperlipidemia, and GERD presents for evaluation of altered mental status. Patient is sleeping and not arousable during time of interview. Per the [facility] (where the patient normally stays) the patient lien costa is A&O x 2 and almost fully deaf so normally communicates through whiteboard. Per the patient's [id number] he has an extensive history of urinary retention and UTIs that have been a big issue in the past. Per the [id number] the patient has had a catheter for about 3 years which she has hospitalized in the past due to inability to remove or replace catheter. Initial lab work from the ER was significant for WBC 39.3, neutrophils 36.7, sodium 134, creatinine 3.44, glucose 161, lactic acid 2.9--> 1.5, UA showed large leukocyte esterase, greater than 182 RBC and WBC, many urine bacteria, 3+ protein. EKG done in the ER showed heart rate of 131 bpm, no ST segment elevation or dep ression seen, no T-wave inversions seen. Sinus tachycardia with occasional supraventricular premature complexes. ER CXR: Prominent interstitial markings. ER CT ABD: Moderate right and mild to moderate left hydronephrosis with moderate bilateral hydroureter. Some apparent nodularity of the gallbladder wall. Minimal adjacent inflammatory change may be present. Patient admitted to internal medicine service 04/18. Patient seen and examined. Patient is lethargic does not look in acute distress. Has been afebrile. Labs done this morning showed WBC 16, hemoglobin 13.1, sodium 138, potassium 3.9, BUN 22, creatinine 1.28 REVIEW OF SYSTEMS: Review of system cannot be obtained as patient is lethargic PHYSICAL EXAMINATION: GENERAL: The patient is lethargic, not in any acute distress. Chronically ill looking HEENT: Pupils are round and equally reacting to light. EOMI. No scleral icterus. No conjunctival pallor. Normocephalic, atraumatic. No pharyngeal erythema. No thyromegaly. CARDIOVASCULAR: S1 and S2 present. No murmurs, rubs, or gallops. PULMONARY: Chest is clear to auscultation, no wheezing or crackles. ABDOMEN: Soft, nontender, nondistended, normoactive bowel sounds. No palpable organomegaly. MUSCULOSKELETAL: No joint swelling or deformity. EXTREMITIES: No cyanosis, clubbing, or pedal edema. NEUROLOGICAL: Gross neurological examination did not reveal any focal deficits. SKIN: No rashes. Assessment and plan #Sepsis and UTI: Monitor vital sign -monitor CBC Monitor CMP Continue IV Rocephin ID following #HARMEET: Likely in the setting of hypotension versus sepsis/UTI versus nephrosclerosis versus diabetic nephropathy Baseline creatinine 0.951.17 Continue IV fluids Nephrology following #Abnormal CT finding showing nodularity of the gallbladder wall: Ultrasound abdomin done, results noted Chronic: #Type 2 diabetes: Continue sliding scale Accu-Cheks #Seizure disorder: Continue home medication #Hyperlipidemia: Continue home medication #GERD: Continue home medication #Mood disorder: Continue home medication Labs and medication were reviewed.. Continue same treatment. Continue with symptomatic treatment. Resume home medication. Monitor labs and vitals. DVT and GI prophylaxis. Further recommendations as per clinical course of the patient Dictation was produced using [employer] dictation software. please excuse any grammatical, word or spelling errors. Objective - Vital Signs Vital signs: Vital Signs Temp 98.7 F 04/18/24 07:44 Pulse 81 04/18/24 07:44 Resp 16 04/18/24 07:44 BP 122/73 04/18/24 07:44 Pulse Ox 95 04/18/24 07:44 FiO2 Intake & Output 04/17/24 04/18/24 04/18/24 18:59 06:59 18:59 Intake Total 597 200 Output Total 1400 500 Balance -803 -500 200 Weight 105 kg Intake: Oral 597 200 Output: Urine 1400 500 Other: Voiding Method Indwelling Catheter Indwelling Catheter Indwelling Catheter - Labs CBC & Chem 7: 04/18/24 05:39 04/18/24 05:39 Labs: Abnormal Lab Results - Last 24 Hours (Table) 04/17/24 04/17/24 04/18/24 Range/Units 00:47 00:47 05:39 WBC 16.0 H (3.8-10.6) k/uL RBC 4.23 L (4.30-5.90) m/uL Neutrophils # 14.2 H (1.3-7.7) k/uL Lymphocytes # 0.8 L (1.0-4.8) k/uL ESR 61 H (0-20) mm/Hr Chloride (98-107) mmol/L Carbon Dioxide (22-30) mmol/L BUN (9-20) mg/dL Creatinine (0.66-1.25) mg/dL Calcium (8.4-10.2) mg/dL Total Protein (6.3-8.2) g/dL Albumin (3.5-5.0) g/dL Procalcitonin 1.41 H (0.02-0.50) ng/mL 04/18/24 Range/Units 05:39 WBC (3.8-10.6) k/uL RBC (4.30-5.90) m/uL Neutrophils # (1.3-7.7) k/uL Lymphocytes # (1.0-4.8) k/uL ESR (0-20) mm/Hr Chloride 111 H (98-107) mmol/L Carbon Dioxide 21 L (22-30) mmol/L BUN 22 H (9-20) mg/dL Creatinine 1.28 H (0.66-1.25) mg/dL Calcium 8.3 L (8.4-10.2) mg/dL Total Protein 5.5 L (6.3-8.2) g/dL Albumin 2.8 L (3.5-5.0) g/dL Procalcitonin (0.02-0.50) ng/mL
[2024-04-18 16:28] LABS: Glucose,Whole Blood 99 mg/dL (70-110)
--- NOTE | 2024-04-18 16:30 | P.PN ---
Subjective Progress Note Date: 04/18/24 Principal diagnosis: Reason for follow-up is a complicated UTI Patient is a 68-year-old male with a past medical history significant for CVA TIA dementia hypertension hyperlipidemia prostate disorder as well as hearing disorder and skilled nursing resident patient has been sent to the ER from the local skilled nursing for evaluation of mental status changes fever noticed to have a complicated UTI with evidence of hydronephrosis on the CT positive UA elevated white count. On today's evaluation that is 04/18/2024,the patient did have resolution of his fever afebrile this morning patient is slightly more awake alert but nonverbal cannot provide any history no vomiting or diarrhea has been reported. Patient white count is down to 16,000, creat is 1.28 cultures currently pending Objective - Vital Signs Vital signs: Vital Signs Temp 98.7 F 04/18/24 07:44 Pulse 81 04/18/24 07:44 Resp 16 04/18/24 07:44 BP 122/73 04/18/24 07:44 Pulse Ox 95 04/18/24 07:44 FiO2 Intake & Output 04/17/24 04/18/24 04/18/24 18:59 06:59 18:59 Intake Total 597 200 Output Total 1400 500 Balance -803 -500 200 Weight 105 kg Intake: Oral 597 200 Output: Urine 1400 500 Other: Voiding Method Indwelling Catheter Indwelling Catheter Indwelling Catheter - Exam GENERAL DESCRIPTION: An elderly male lying in bed in no distress RESPIRATORY SYSTEM: Unlabored breathing , decreased breath sounds at bases HEART: S1 S2 regular rate and rhythm , ABDOMEN: Soft , no tenderness EXTREMITIES: No edema feet - Labs CBC & Chem 7: 04/18/24 05:39 04/18/24 05:39 Labs: Abnormal Lab Results - Last 24 Hours (Table) 04/17/24 04/17/24 04/18/24 Range/Units 00:47 00:47 05:39 WBC 16.0 H (3.8-10.6) k/uL RBC 4.23 L (4.30-5.90) m/uL Neutrophils # 14.2 H (1.3-7.7) k/uL Lymphocytes # 0.8 L (1.0-4.8) k/uL ESR 61 H (0-20) mm/Hr Chloride (98-107) mmol/L Carbon Dioxide (22-30) mmol/L BUN (9-20) mg/dL Creatinine (0.66-1.25) mg/dL Calcium (8.4-10.2) mg/dL Total Protein (6.3-8.2) g/dL Albumin (3.5-5.0) g/dL Procalcitonin 1.41 H (0.02-0.50) ng/mL 04/18/24 Range/Units 05:39 WBC (3.8-10.6) k/uL RBC (4.30-5.90) m/uL Neutrophils # (1.3-7.7) k/uL Lymphocytes # (1.0-4.8) k/uL ESR (0-20) mm/Hr Chloride 111 H (98-107) mmol/L Carbon Dioxide 21 L (22-30) mmol/L BUN 22 H (9-20) mg/dL Creatinine 1.28 H (0.66-1.25) mg/dL Calcium 8.3 L (8.4-10.2) mg/dL Total Protein 5.5 L (6.3-8.2) g/dL Albumin 2.8 L (3.5-5.0) g/dL Procalcitonin (0.02-0.50) ng/mL Assessment and Plan (1) Complicated UTI (urinary tract infection) Current Visit: Yes Status: Acute Code(s): N39.0 - URINARY TRACT INFECTION, S ITE NOT SPECIFIED SNOMED Code(s): 19282734 (2) Leukocytosis Current Visit: Yes Status: Acute Code(s): D72.829 - ELEVATED WHITE BLOOD CELL COUNT, UNSPECIFIED SNOMED Code(s): 861766990 (3) Sepsis Current Visit: Yes Status: Acute Code(s): A41.9 - SEPSIS, UNSPECIFIED ORGANISM SNOMED Code(s): 94973516 Plan: 1patient presented to hospital with sepsis in this patient who did have fever tachycardia elevated white count source likely complicated UTI and concern for possible obstructive uropathy as patient did have elevated creatinine 2patient CT of abdominal pelvis did shows evidence of hydronephrosis and will benefit from urology evaluation 3for now continue with Rocephin 2 g daily, while waiting for the culture to finalize Dictation was produced using [employer] dictation software. please excuse any grammatical, word or spelling errors. Time with Patient: Less than 30
[2024-04-18 22:05] LABS: Glucose,Whole Blood 104 mg/dL (70-110)
[2024-04-19 06:44] LABS: Glucose,Whole Blood 91 mg/dL (70-110)
[2024-04-19 09:02] LABS: Basophils % (A) 0 %; Eosinophils # (A) 0.3 k/uL (0-0.7); Eosinophils % (A) 4 %; HCT 41.4 % (39.0-53.0); HGB 13.1 gm/dL (13.0-17.5); Hypochromasia Slight; Lymphocytes % (A) 13 %; MCH 30.7 pg (25.0-35.0); MCHC 31.7 g/dL (31.0-37.0); MCV 96.6 fL (80.0-100.0); Mean Platelet Volume 7.7; Monocytes # (A) 0.4 k/uL (0-1.0); Monocytes % (A) 6 %; Neutrophils # (A) 5.9 k/uL (1.3-7.7); Neutrophils % (A) 76 %; Platelet Count 214 k/uL (150-450); RBC 4.28 m/uL (4.30-5.90); RDW 13.8 % (11.5-15.5); WBC 7.7 k/uL (3.8-10.6)
[2024-04-19 09:19] LABS: ALT 18 U/L (4-49); AST 26 U/L (17-59); African American GFR (CKD) >90 (>60 ml/min/1.73 sqM); Albumin 2.7 g/dL (3.5-5.0); Alkaline Phosphatase 73 U/L (38-126); Anion Gap 7 mmol/L; Blood Urea Nitrogen 15 mg/dL (9-20); Calcium 8.5 mg/dL (8.4-10.2); Carbon Dioxide 23 mmol/L (22-30); Chloride 108 mmol/L (98-107); Globulin 2.8 g/dL; Glucose 110 mg/dL (74-99); Non-African American GFR(CKD) 88 (>60 ml/min/1.73 sqM); Potassium 3.6 mmol/L (3.5-5.1); Sodium 138 mmol/L (137-145); Total Bilirubin 0.3 mg/dL (0.2-1.3); Total Protein 5.5 g/dL (6.3-8.2)
[2024-04-19] MEDS ORDERED: ZINC OXIDE PASTE (Z-GUARD) 1 APPLIC TOPICAL PRN (11:46)
[2024-04-19 12:01] LABS: Glucose,Whole Blood 89 mg/dL (70-110)
[2024-04-19] MEDS: TAMSULOSIN 0.4 MG CAP.ER.24H PO SCH (12:34)
[2024-04-19] MEDS: metFORMIN 500 MG TAB PO SCH (12:35)
[2024-04-19] MEDS: NON FORMULARY DRUG (Lactose-Reduced Food [Ensure Plus] 237 ML Liquid) PO SCH (12:46)
--- NOTE | 2024-04-19 14:48 | P.PN ---
Subjective patient is seen for follow-up for acute kidney injury. Maintained on IV fluids. serum creatinine at 0.8 mg/dL. Objective - Vital Signs Vital signs: Vital Signs Temp 98.6 F 04/19/24 14:08 Pulse 68 04/19/24 14:08 Resp 18 04/19/24 14:08 BP 129/69 04/19/24 14:08 Pulse Ox 96 04/19/24 14:08 FiO2 Intake & Output 04/18/24 04/19/24 04/19/24 18:59 06:59 18:59 Intake Total 200 130 Output Total 850 1050 Balance -650 -920 Weight 104.5 kg Intake: Intake, IV Titration 130 Amount Sodium Chloride 0.9% 1, 130 000 ml @ 130 mls/hr IV . Q7H42M [facility] Rx#:[id number] Oral 200 Output: Urine 850 1050 Other: Voiding Method Indwelling Catheter Indwelling Catheter Indwelling Catheter # Voids 700 # Bowel Movements 1 - Exam patient is awake, comfortable Appears euvolemic. - Labs CBC & Chem 7: 04/19/24 08:30 04/19/24 08:30 Labs: Abnormal Lab Results - Last 24 Hours (Table) 04/19/24 04/19/24 Range/Units 08:30 08:30 RBC 4.28 L (4.30-5.90) m/uL Chloride 108 H (98-107) mmol/L Glucose 110 H (74-99) mg/dL Total Protein 5.5 L (6.3-8.2) g/dL Albumin 2.7 L (3.5-5.0) g/dL Microbiology - Last 24 Hours (Table) 04/17/24 00:47 Blood Culture - Preliminary Blood 04/17/24 14:47 Urine Culture - Final Urine,Catheterized Assessment and Plan Assessment: 1. HARMEET secondary to ATN from sepsis. Baseline creatinine 0.9, presented 3.4 now 0.8 today. UA concerning for UTI. 2. Metabolic Acidosis due to HARMEET and lactic acidosis-Improved 3. Sepsis with UTI 4. Metabolic Encephalopathy 5. Hypotension Plan: continue IV fluids. Decrease rate Repeat labs in a.m.
[2024-04-19 14:49] LABS: INR 1.1 (<1.2); Prothrombin Time 12.1 sec (10.0-12.5)
--- NOTE | 2024-04-19 14:56 | P.GSCN ---
History of Present Illness Consult date: 04/19/24 History of present illness: CHIEF COMPLAINT: Fever HISTORY OF PRESENT ILLNESS: This is a 68-year-old male who presented with altered mental status and fever. Apparently patient had issues with urinary retention and had to be straight cath. He was found to have evidence of UTI. He also was having hematuria. CT scan abdomen and pelvis had had reported moderate right and mild to moderate left hydronephrosis with moderate bilateral hydroureter. Some apparent nodularity of the gallbladder wall. Minimal adjacent inflammatory change may be present. Nonobstructing left renal stones. Abdominal ultrasound did report cholelithiasis and mild left-sided hydronephros is renal calcification. Patient has Quinones catheter in place. No evidence of hematuria at this time. Per family no evidence of nausea and vomiting. He did have bowel movement. He had significant leukocytosis on admission that has now normalized. Also significant acute renal failure that has improved. Patient with evidence of sepsis on admission. Mildly tachycardic and mildly hypotensive with leukocytosis. PAST MEDICAL HISTORY: COPD, CVA, Dementia, Hearing Disorder / Deafness, Hyperlipidemia, Hypertension, Prostate Disorder, encephalopathy/vascular dementia/CPD/ASHD/presbycusis. severe generalized intracranial leukoencephalopathy/cerebral ventriculomegaly/cerebral atrophy/neurogenic dysphagia/UTI/urinary retention/constipation/suspected dysautonomally PAST SURGICAL HISTORY: Appendectomy MEDICATIONS: See below ALLERGIES: See below SOCIAL HISTORY: No illicit drug use. REVIEW OF SYSTEMS: CONSTITUTIONAL: Denies fever or chills. HEENT: Denies blurred vision, vision changes, or eye pain. Denies hemoptysis CARDIOVASCULAR: Denies chest pain or pressure. RESPIRATORY: No shortness of breath. GASTROINTESTINAL: See HPI for pertinent findings HEMATOLOGIC: Denies bleeding disorders. GENITOURINARY: Denies any blood in urine or increased urinary frequency. SKIN: Denies pruitis. Denies rash. PHYSICAL EXAM: VITAL SIGNS: Reviewed GENERAL: Well-developed in no acute distress. HEENT: No sclera icterus. Extraocular movements grossly intact. Moist buccal mucosa. Head is atraumatic, normocephalic. No nasal drainage. ABDOMEN: Soft. Nondistended. Right upper quadrant tenderness with palpation. Mild tenderness in the left lower quadrant. No guarding. NEUROLOGIC: Awake and alert. Deaf. LABORATORY DATA: WBC 39.3 down to 7.7 Hgb 13.1 platelets 214 Sodium 138 potassium 3.6 creatinine 3.44 down to 0.86 Lactic acid 2.9 down to 1.5 LFTs are normal Urinalysis positive for infection IMAGING: CT scan abdomen pelvis reports moderate right and mild to moderate left h ydronephrosis with moderate bilateral hydroureter. Obstructing etiology is not identified at the level of the urinary bladder due to limitation from bilateral hip prosthesis. Urinary bladder is decompressed with the catheter. There is some apparent nodularity of the gallbladder wall. Minimal adjacent inflammatory change may be present. Nonobstructing punctate renal stones on the left. Abdominal ultrasound reports mild renal atrophy. Cholelithiasis. Mild left- sided hydronephrosis without renal calcification ASSESSMENT: 1. Right upper quadrant abdominal pain. Cholelithiasis and nodularity of the gallbladder wall noted on imaging 2. UTI 3. Bilateral hydronephrosis with possible obstructive uropathy. Patient has Quinones catheter in place 4. Acute kidney injury 5. Sepsis PLAN: -Patient is scheduled for laparoscopic cholecystectomy tomorrow with Dr. Holcomb -N.p.o. after midnight -Continue antibiotics -Recommend low-fat diet for dinner -Continue supportive care -Agree with consulting urology Physician [employer] note has been reviewed by physician. Signing provider agrees with the documented findings, assessment, and plan of care. Past Medical History Past Medical History: Unable to Obtain, COPD, CVA/TIA, Dementia, Hearing Diso rder / Deafness, Hyperlipidemia, Hypertension, Prostate Disorder Additional Past Medical History / Comment(s): AMS changes/ischemic encephalopathy/vascular dementia/CPD/ASHD/presbycusis. He had a LP performed and was transferred to [facility]. Discharge diagnosis from [facility] list: severe generalized intracranial leukoencephalopathy/cerebral ventriculomegaly/cerebral atrophy/neurogenic dysphagia/UTI/urinary retention/constipation/suspected dysautonomally, acute encephalopathy. [facility] states they were also told uncontrolled HTN/hydrocephalus/advance dementia/uti. Other hx: 2013 CVA without residual, [place] bilaterally/speak in R ear, occasional urinary incontinence/frequency, CKD, nephrolithiasis, BPH, occasional back pain. History of Any Multi-Drug Resistant Organisms: None Reported Past Surgical History: Appendectomy Additional Past Surgical History / Comment(s): colonoscopy, urology surgery Past Anesthesia/Blood Transfusion Reactions: No Reported Reaction Past Psychological History: Anxiety, Depression Smoking Status: Former smoker Past Alcohol Use History: None Reported Past Drug Use History: None Reported - Past Family History Mother Family Medical History: Dementia, Hypertension Father Family Medical History: Cancer Additional Family Medical History / Comment(s): Lung cancer. Father was a smoker. Medications and Allergies Home Medications Medication Instructions Recorded Confirmed Type Atorvastatin [Lipitor] 10 mg PO HS 04/14/20 04/17/24 History Folic Acid 0.4 mg PO DAILY 04/14/20 04/17/24 History Thiamine HCl [Vitamin B-1] 300 mg PO DAILY 04/14/20 04/17/24 History Acetaminophen Tab [Tylenol] 650 mg PO Q6H PRN 06/14/20 04/17/24 History QUEtiapine [SEROquel] 100 mg PO HS 02/20/23 04/17/24 History Sertraline [Zoloft] 25 mg PO DAILY 02/20/23 04/17/24 History Lactose-Reduced Food [Ensure Plus] 237 ml PO DAILY 01/04/24 04/17/24 History Omeprazole [PriLOSEC] 20 mg PO DAILY@0600 01/04/24 04/17/24 History QUEtiapine [SEROquel] 50 mg PO BID 01/04/24 04/17/24 History Sennosides/Docusate Sodium [Senna 2 tab PO HS 01/04/24 04/17/24 History Plus 8.6-50 mg Tablet] Sertraline HCl [Zoloft] 50 mg PO DAILY 01/04/24 04/17/24 History metFORMIN HCL ER [Glucophage XR] 500 mg PO DAILY 01/04/24 04/17/24 History HYDROcodone/APAP 5-325MG [[place] 1 - 2 tab PO Q6HR PRN #32 tab 01/08/24 04/17/24 Rx 5-325] Aspirin 81 mg PO DAILY #0 01/12/24 04/17/24 Rx levETIRAcetam [Keppra] 500 mg PO Q12HR #60 tab 01/12/24 04/17/24 Rx Docusate [Colace] 100 mg PO Q12H 04/17/24 04/17/24 History Famotidine [Pepcid] 20 mg PO BID@0600,2100 04/17/24 04/17/24 History Allergies Allergy/AdvReac Type Severity Reaction Status Date / Time No Known Allergies Allergy Verified 04/17/24 13:41 Surgical - Exam Vital Signs Temp Pulse Resp BP Pulse Ox 99.9 F H 133 H 19 85/72 94 L 04/17/24 00:23 04/17/24 00:23 04/17/24 00:23 04/17/24 00:23 04/17/24 00:23 Results - Labs 04/19/24 08:30 04/19/24 08:30 Abnormal Lab Results - Last 24 Hours (Table) 04/19/24 04/19/24 Range/Units 08:30 08:30 RBC 4.28 L (4.30-5.90) m/uL Chloride 108 H (98-107) mmol/L Glucose 110 H (74-99) mg/dL Total Protein 5.5 L (6.3-8.2) g/dL Albumin 2.7 L (3.5-5.0) g/dL Microbiology - Last 24 Hours (Table) 04/17/24 00:47 Blood Culture - Preliminary Blood 04/17/24 14:47 Urine Culture - Final Urine,Catheterized Diabetes panel 04/19/24 Range/Units 08:30 Sodium 138 (137-145) mmol/L Potassium 3.6 (3.5-5.1) mmol/L Chloride 108 H (98-107) mmol/L Carbon Dioxide 23 (22-30) mmol/L BUN 15 (9-20) mg/dL Creatinine 0.86 (0.66-1.25) mg/dL Glucose 110 H (74-99) mg/dL Calcium 8.5 (8.4-10.2) mg/dL AST 26 (17-59) U/L ALT 18 (4-49) U/L Alkaline Phosphatase 73 (38-126) U/L Total Protein 5.5 L (6.3-8.2) g/dL Albumin 2.7 L (3.5-5.0) g/dL Calcium panel 04/19/24 Range/Units 08:30 Calcium 8.5 (8.4-10.2) mg/dL Albumin 2.7 L (3.5-5.0) g/dL Pituitary panel 04/19/24 Range/Units 08:30 Sodium 138 (137-145) mmol/L Potassium 3.6 (3.5-5.1) mmol/L Chloride 108 H (98-107) mmol/L Carbon Dioxide 23 (22-30) mmol/L BUN 15 (9-20) mg/dL Creatinine 0.86 (0.66-1.25) mg/dL Glucose 110 H (74-99) mg/dL Calcium 8.5 (8.4-10.2) mg/dL Adrenal panel 04/19/24 Range/Units 08:30 Sodium 138 (137-145) mmol/L Potassium 3.6 (3.5-5.1) mmol/L Chloride 108 H (98-107) mmol/L Carbon Dioxide 23 (22-30) mmol/L BUN 15 (9-20) mg/dL Creatinine 0.86 (0.66-1.25) mg/dL Glucose 110 H (74-99) mg/dL Calcium 8.5 (8.4-10.2) mg/dL Total Bilirubin 0.3 (0.2-1.3) mg/dL AST 26 (17-59) U/L ALT 18 (4-49) U/L Alkaline Phosphatase 73 (38-126) U/L Total Protein 5.5 L (6.3-8.2) g/dL Albumin 2.7 L (3.5-5.0) g/dL
--- NOTE | 2024-04-19 15:27 | P.GSCN ---
History of Present Illness Consult date: 04/19/24 History of present illness: 68-year-old gentleman admitted the hospital with altered mental status due to a urinary tract infection. Patient has chronic Alzheimer's and it worsened during the evidence of the infection was brought in from [facility] for this evaluation. His temperature in the emergency room was 99.9. The urine looked infected. A computed tomography scan identified a thickened bladder and some mild chronic bilateral [place]. The patient has a chronic indwelling catheter. He is a patient of who has removed bladder stones in the past. On admission the patient's white count is normal. His urine is quite inflamed with white cells and red cells. Urine cultures are negative to date. His creatinine is normal 0.86. Review of Systems ROS unobtainable: due to mental status Past Medical History Past Medical History: Unable to Obtain, COPD, CVA/TIA, Dementia, Hearing Disorder / Deafness, Hyperlipidemia, Hypertension, Prostate Disorder Additional Past Medical History / Comment(s): AMS changes/ischemic encephalopathy/vascular dementia/CPD/ASHD/presbycusis. He had a LP performed and was transferred to [facility]. Discharge diagnosis from [facility] list: severe generalized intracranial leukoencephalopathy/cerebral ventriculomegaly/cerebral atrophy/neurogenic dysphagia/UTI/urinary retention/constipation/suspected dysautonomally, acute encephalopathy. [facility] states they were also told uncontrolled HTN/hydrocephalus/advance dementia/uti. Other hx: 2013 CVA without residual, [place] bilaterally/speak in R ear, occasional urinary incontinence/frequency, CKD, nephrolithiasis, BPH, occasional back pain. History of Any Multi-Drug Resistant Organisms: None Reported Past Surgical History: Appendectomy Additional Past Surgical History / Comment(s): colonoscopy, urology surgery Past Anesthesia/Blood Transfusion Reactions: No Reported Reaction Past Psychological History: Anxiety, Depression Smoking Status: Former smoker Past Alcohol Use History: None Reported Past Drug Use History: None Reported - Past Family History Mother Family Medical History: Dementia, Hypertension Father Family Medical History: Cancer Additional Family Medical History / Comment(s): Lung cancer. Father was a smoker. Medications and Allergies Home Medications Medication Instructions Recorded Confirmed Type Atorvastatin [Lipitor] 10 mg PO HS 04/14/20 04/17/24 History Folic Acid 0.4 mg PO DAILY 04/14/20 04/17/24 History Thiamine HCl [Vitamin B-1] 300 mg PO DAILY 04/14/20 04/17/24 History Acetaminophen Tab [Tylenol] 650 mg PO Q6H PRN 06/14/20 04/17/24 History QUEtiapine [SEROquel] 100 mg PO HS 02/20/23 04/17/24 History Sertraline [Zoloft] 25 mg PO DAILY 02/20/23 04/17/24 History Lactose-Reduced Food [Ensure Plus] 237 ml PO DAILY 01/04/24 04/17/24 History Omeprazole [PriLOSEC] 20 mg PO DAILY@0600 01/04/24 04/17/24 History QUEtiapine [SEROquel] 50 mg PO BID 01/04/24 04/17/24 History Sennosides/Docusate Sodium [Senna 2 tab PO HS 01/04/24 04/17/24 History Plus 8.6-50 mg Tablet] Sertraline HCl [Zoloft] 50 mg PO DAILY 01/04/24 04/17/24 History metFORMIN HCL ER [Glucophage XR] 500 mg PO DAILY 01/04/24 04/17/24 History HYDROcodone/APAP 5-325MG [[place] 1 - 2 tab PO Q6HR PRN #32 tab 01/08/24 04/17/24 Rx 5-325] Aspirin 81 mg PO DAILY #0 01/12/24 04/17/24 Rx levETIRAcetam [Keppra] 500 mg PO Q12HR #60 tab 01/12/24 04/17/24 Rx Docusate [Colace] 100 mg PO Q12H 04/17/24 04/17/24 History Famotidine [Pepcid] 20 mg PO BID@0600,2100 04/17/24 04/17/24 History Allergies Allergy/AdvReac Type Severity Reaction Status Date / Time No Known Allergies Allergy Verified 04/17/24 13:41 Surgical - Exam Vital Signs Temp Pulse Resp BP Pulse Ox 99.9 F H 133 H 19 85/72 94 L 04/17/24 00:23 04/17/24 00:23 04/17/24 00:23 04/17/24 00:23 04/17/24 00:23 - General well developed, well nourished, no distress - Eyes normal ocular movement, no icteric - ENT decreased hearing - Neck no masses, trachea midline - Respiratory normal respiratory effort, clear to auscultation - Abdomen Abdomen: soft, tender, no guarding, no rigid, no rebound - Integumentary no rash, no abnormal pigmentation - Neurologic no disoriented, no combative - Psychiatric oriented to time, oriented to person, oriented to place, speech is normal, memory intact Results - Labs 04/19/24 08:30 04/19/24 08:30 Abnormal Lab Results - Last 24 Hours (Table) 04/19/24 04/19/24 Range/Units 08:30 08:30 RBC 4.28 L (4.30-5.90) m/uL Chloride 108 H (98-107) mmol/L Glucose 110 H (74-99) mg/dL Total Protein 5.5 L (6.3-8.2) g/dL Albumin 2.7 L (3.5-5.0) g/dL Microbiology - Last 24 Hours (Table) 04/17/24 00:47 Blood Culture - Preliminary Blood 04/17/24 14:47 Urine Culture - Final Urine,Catheterized Diabetes panel 04/19/24 Range/Units 08:30 Sodium 138 (137-145) mmol/L Potassium 3.6 (3.5-5.1) mmol/L Chloride 108 H (98-107) mmol/L Carbon Dioxide 23 (22-30) mmol/L BUN 15 (9-20) mg/dL Creatinine 0.86 (0.66-1.25) mg/dL Glucose 110 H (74-99) mg/dL Calcium 8.5 (8.4-10.2) mg/dL AST 26 (17-59) U/L ALT 18 (4-49) U/L Alkaline Phosphatase 73 (38-126) U/L Total Protein 5.5 L (6.3-8.2) g/dL Albumin 2.7 L (3.5-5.0) g/dL Calcium panel 04/19/24 Range/Units 08:30 Calcium 8.5 (8.4-10.2) mg/dL Albumin 2.7 L (3.5-5.0) g/dL Pituitary panel 04/19/24 Range/Units 08:30 Sodium 138 (137-145) mmol/L Potassium 3.6 (3.5-5.1) mmol/L Chloride 108 H (98-107) mmol/L Carbon Dioxide 23 (22-30) mmol/L BUN 15 (9-20) mg/dL Creatinine 0.86 (0.66-1.25) mg/dL Glucose 110 H (74-99) mg/dL Calcium 8.5 (8.4-10.2) mg/dL Adrenal panel 04/19/24 Range/Units 08:30 Sodium 138 (137-145) mmol/L Potassium 3.6 (3.5-5.1) mmol/L Chloride 108 H (98-107) mmol/L Carbon Dioxide 23 (22-30) mmol/L BUN 15 (9-20) mg/dL Creatinine 0.86 (0.66-1.25) mg/dL Glucose 110 H (74-99) mg/dL Calcium 8.5 (8.4-10.2) mg/dL Total Bilirubin 0.3 (0.2-1.3) mg/dL AST 26 (17-59) U/L ALT 18 (4-49) U/L Alkaline Phosphatase 73 (38-126) U/L Total Protein 5.5 L (6.3-8.2) g/dL Albumin 2.7 L (3.5-5.0) g/dL Assessment and Plan Assessment: Impression: Urinary tract infection with sepsis. Neurogenic bladder with chronic indwelling catheter. Multiple medical illnesses. Mild bilateral [place]. Recommendations: Upon reviewing the computed tomography scan it appears as if he has a chronically thickened bladder with some mild hydronephrosis secondarily. With a normal creatinine and the mild amount of [place] I do not recommend any further urologic intervention other than continued antibiotics. The patient does have cholelithiasis and is to have a cholecystectomy tomorrow by Dr Holcomb
--- NOTE | 2024-04-19 16:22 | P.PN ---
Subjective 68-year-old male with a past medical history of type 2 diabetes, seizure disorder, mood disorder, hyperlipidemia, and GERD presents for evaluation of altered mental status. Patient is sleeping and not arousable during time of interview. Per the [facility] (where the patient normally stays) the patient typically is A&O x 2 and almost fully deaf so normally communicates through whiteboard. Per the patient's [id number] he has an extensive history of urinary retention and UTIs that have been a big issue in the past. Per the [id number] the patient has had a catheter for about 3 years which she has hospitalized in the past due to inability to remove or replace catheter. Initial lab work from the ER was significant for WBC 39.3, neutrophils 36.7, sodium 134, creatinine 3.44, glucose 161, lactic acid 2.9--> 1.5, UA showed large leukocyte esterase, greater than 182 RBC and WBC, many urine bacteria, 3+ protein. EKG done in the ER showed heart rate of 131 bpm, no ST segment elevation or depression seen, no T-wave inversions seen. Sinus tachycardia with occasional supraventricular premature complexes. ER CXR: Prominent interstitial markings. ER CT ABD: Moderate right and mild to moderate left hydronephrosis with moderate bilateral hydroureter. Some apparent nodularity of the gallbladder wall. Minimal adjacent inflammatory change may be present. Patient admitted to internal medicine service 04/18. Patient seen and examined. Patient is lethargic does not look in acute distress. Has been afebrile. Labs done this morning showed WBC 16, hemoglobin 13.1, sodium 138, potassium 3.9, BUN 22, creatinine 1.28 04/19. Patient seen and examined. Patient continues to be lethargic but not in any acute distress. Labs from this morning showed WBC 7.7, hemoglobin 13.1, sodium 138, potassium 3.6, BUN 15, and creatinine 0.86. REVIEW OF SYSTEMS: Review of system cannot be obtained as patient is lethargic PHYSICAL EXAMINATION: GENERAL: The patient is lethargic, not in any acute distress. Chronically ill looking HEENT: Pupils are round and equally reacting to light. EOMI. No scleral icterus. No conjunctival pallor. Normocephalic, atraumatic. No pharyngeal erythema. No thyromegaly. CARDIOVASCULAR: S1 and S2 present. No murmurs, rubs, or gallops. PULMONARY: Chest is clear to auscultation, no wheezing or crackles. ABDOMEN: Soft, nontender, nondistended, normoactive bowel sounds. No palpable organomegaly. MUSCULOSKELETAL: No joint swelling or deformity. EXTREMITIES: No cyanosis, clubbing, or pedal edema. NEUROLOGICAL: Gross neurological examination did not reveal any focal deficits. SKIN: No rashes. Assessment and plan #Sepsis and UTI: Monitor vital sign -monitor CBC Monitor CMP Continue IV Rocephin ID following Urology following, do not recommend any urologic intervention at this time #HARMEET: Likely in the setting of hypotension versus sepsis/UTI versus nephrosclerosis versus diabetic nephropathy Baseline creatinine 0.951.17 Continue IV fluids Nephrology following #Abnormal CT finding showing nodularity of the gallbladder wall: Ultrasound abdomin done, results noted #Cholelithiasis: Seen on abdominal CT General Surgery on consult, plan for cholecystectomy tomorrow Continue to monitor Chronic: #Type 2 diabetes: Continue sliding scale Accu-Cheks #Seizure disorder: Continue home medication #Hyperlipidemia: Continue home medication #GERD: Continue home medication #Mood disorder: Continue home medication Labs and medication were reviewed.. Continue same treatment. Continue with symptomatic treatment. Resume home medication. Monitor labs and vitals. DVT and GI prophylaxis. Further recommendations as per clinical course of the patient Dictation was produced using [employer] dictation software. please excuse any grammatical, word or spelling errors. Objective - Vital Signs Vital signs: Vital Signs Temp 98.6 F 04/19/24 14:08 Pulse 68 04/19/24 14:08 Resp 18 04/19/24 14:08 BP 129/69 04/19/24 14:08 Pulse Ox 96 04/19/24 14:08 FiO2 Intake & Output 04/18/24 04/19/24 04/19/24 18:59 06:59 18:59 Intake Total 200 130 Output Total 850 1050 Balance -650 -920 Weight 104.5 kg Intake: Intake, IV Titration 130 Amount Sodium Chloride 0.9% 1, 130 000 ml @ 130 mls/hr IV . Q7H42M [facility] Rx#:[id number] Oral 200 Output: Urine 850 1050 Other: Voiding Method Indwelling Catheter Indwelling Catheter Indwelling Catheter # Voids 700 # Bowel Movements 1 - Labs CBC & Chem 7: 04/19/24 08:30 04/19/24 08:30 Labs: Abnormal Lab Results - Last 24 Hours (Table) 04/19/24 04/19/24 Range/Units 08:30 08:30 RBC 4.28 L (4.30-5.90) m/uL Chloride 108 H (98-107) mmol/L Glucose 110 H (74-99) mg/dL Total Protein 5.5 L (6.3-8.2) g/dL Albumin 2.7 L (3.5-5.0) g/dL Microbiology - Last 24 Hours (Table) 04/17/24 00:47 Blood Culture - Preliminary Blood 04/17/24 14:47 Urine Culture - Final Urine,Catheterized
[2024-04-19 16:45] LABS: Glucose,Whole Blood 88 mg/dL (70-110)
[2024-04-19 20:00] LABS: Glucose,Whole Blood 110 mg/dL (70-110)
[2024-04-19] MEDS: SENNOSIDES-DOCUSATE SODIUM 1 EACH TAB PO SCH (21:15)
--- NOTE | 2024-04-19 21:55 | US ---
EXAMINATION TYPE: US gallbladder DATE OF EXAM: 04/19/2024 COMPARISON: 04/17/2024 CT CLINICAL INDICATION: Male, 68 years old with history of nodule found on CT; abn gb on CT, patient did not respond to any questioning TECHNIQUE: Grayscale and color Doppler imaging of the right upper quadrant was performed. FINDINGS: EXAM MEASUREMENTS: Liver Length: 19.6 cm Gallbladder Wall: 0.3 cm CBD: 1.4 cm Right Kidney: 11.6 x 5.1 x 5.7 cm Pancreas: wnl Liver: enlarged, difficult to penetrate, possible focal fatty sparring noted adjacent to GB Gallbladder: multiple shadowing stones and debris within, borderline wall thickness Evidence for sonographic Hoover's sign: no CBD: dilated with no obvious obstruction Right Kidney: wnl Possible structure indicated/measured in the right upper quadrant in region of the gallbladder fossa is 5 x 4.1 x 2.2 cm, of uncertain etiology or significance. Unfortunately neoplasm in the region of t he gallbladder fossa/liver cannot be excluded from this study. IMPRESSION: 1. Cholelithiasis without clear evidence of acute cholecystitis. 2. Cannot exclude neoplasm in the region of the gallbladder fossa/liver. When clinically appropriate, a follow-up multiphase hepatic mass protocol MRI is recommended. 3. Hepatomegaly and hepatic steatosis. 4. Dilated CBD of uncertain cause. This could also be further evaluated with MRI/MRCP. [facility], , 04/19/2024 9:53 PM
[2024-04-20 03:35] LABS: Basophils % (A) 0 %; Eosinophils # (A) 0.2 k/uL (0-0.7); Eosinophils % (A) 3 %; HCT 38.2 % (39.0-53.0); HGB 12.6 gm/dL (13.0-17.5); Lymphocytes # (A) 1.3 k/uL (1.0-4.8); Lymphocytes % (A) 18 %; MCH 31.4 pg (25.0-35.0); MCHC 32.9 g/dL (31.0-37.0); MCV 95.5 fL (80.0-100.0); Mean Platelet Volume 7.6; Monocytes # (A) 0.5 k/uL (0-1.0); Monocytes % (A) 7 %; Neutrophils # (A) 5.1 k/uL (1.3-7.7); Neutrophils % (A) 71 %; Platelet Count 218 k/uL (150-450); RBC 3.99 m/uL (4.30-5.90); RDW 13.7 % (11.5-15.5); WBC 7.3 k/uL (3.8-10.6)
[2024-04-20 03:39] LABS: ALT 16 U/L (4-49); AST 24 U/L (17-59); African American GFR (CKD) >90 (>60 ml/min/1.73 sqM); Albumin 2.4 g/dL (3.5-5.0); Alkaline Phosphatase 61 U/L (38-126); Anion Gap 5 mmol/L; Blood Urea Nitrogen 12 mg/dL (9-20); Calcium 8.1 mg/dL (8.4-10.2); Carbon Dioxide 22 mmol/L (22-30); Chloride 111 mmol/L (98-107); Globulin 2.5 g/dL; Glucose 77 mg/dL (74-99); Non-African American GFR(CKD) 89 (>60 ml/min/1.73 sqM); Potassium 3.9 mmol/L (3.5-5.1); Sodium 138 mmol/L (137-145); Total Bilirubin 0.3 mg/dL (0.2-1.3); Total Protein 4.9 g/dL (6.3-8.2)
[2024-04-20 06:24] LABS: Glucose,Whole Blood 81 mg/dL (70-110)
--- NOTE | 2024-04-20 07:51 | P.PN ---
Subjective Progress Note Date: 04/20/24 The patient is in the hospital with apparent uti with sepsis. He wears a chronic indwelling catheter. He also has cholithiasis and is to have a cholecystectomy His vss and he is afebrile Objective - Vital Signs Vital signs: Vital Signs Temp 98.0 F 04/20/24 00:36 Pulse 58 L 04/20/24 00:36 Resp 15 04/20/24 00:36 BP 143/77 04/20/24 00:36 Pulse Ox 96 04/20/24 00:36 FiO2 Intake & Output 04/19/24 04/20/24 04/20/24 18:59 06:59 18:59 Output Total 3000 Balance -3000 Weight 104.5 kg 106 kg Output: Urine 3000 Other: Voiding Method Indwelling Catheter Indwelling Catheter # Voids 650 # Bowel Movements 1 1 - Genitourinary Genitourinary Comment(s): clear urine with indwelling catheter without any penile or scrotal swelling - Labs CBC & Chem 7: 04/20/24 02:22 04/20/24 02:22 Labs: Abnormal Lab Results - Last 24 Hours (Table) 04/19/24 04/19/24 04/20/24 Range/Units 08:30 08:30 02:22 RBC 4.28 L 3.99 L (4.30-5.90) m/uL Hgb 12.6 L (13.0-17.5) gm/dL Hct 38.2 L (39.0-53.0) % Chloride 108 H (98-107) mmol/L Glucose 110 H (74-99) mg/dL Calcium (8.4-10.2) mg/dL Total Protein 5.5 L (6.3-8.2) g/dL Albumin 2.7 L (3.5-5.0) g/dL 04/20/24 Range/Units 02:22 RBC (4.30-5.90) m/uL Hgb (13.0-17.5) gm/dL Hct (39.0-53.0) % Chloride 111 H (98-107) mmol/L Glucose (74-99) mg/dL Calcium 8.1 L (8.4-10.2) mg/dL Total Protein 4.9 L (6.3-8.2) g/dL Albumin 2.4 L (3.5-5.0) g/dL Microbiology - Last 24 Hours (Table) 04/17/24 00:47 Blood Culture - Preliminary Blood Assessment and Plan Assessment: Impression: uti with sepsis, chronic indwelling catheter. cholelithiasis Plan: no further gu recommendations
--- NOTE | 2024-04-20 09:52 | P.PN ---
Subjective Progress Note Date: 04/20/24 68-year-old male with a past medical history of type 2 diabetes, seizure disorder, mood disorder, hyperlipidemia, and GERD presents for evaluation of altered mental status. Patient is sleeping and not arousable during time of interview. Per the [facility] (where the patient normally stays) [facility] A&[facility] 2 and almost fully deaf so normally communicates through whiteboard. Per the patient's [id number] he has an extensive history of urinary retention and UTIs that have been a big issue in the past. Per the [id number] the patient has had a catheter for about 3 years which she has hospitalized in the past due to inability to remove or replace catheter. Initial lab work from the ER was significant for WBC 39.3, neutrophils 36.7, sodium 134, creatinine 3.44, glucose 161, lactic acid 2.9--> 1.5, UA showed large leukocyte esterase, greater than 182 RBC and WBC, many urine bacteria, 3+ protein. EKG done in the ER showed heart rate of 131 bpm, no ST segment elevation or depression seen, no T-wave inversions seen. Sinus tachycardia with occasional supraventricular premature complexes. ER CXR: Prominent interstitial markings. ER CT ABD: Moderate right and mild to moderate left hydronephrosis with moderate bilateral hydroureter. Some apparent nodularity of the gallbladder wall. Minimal adjacent inflammatory change may be present. Patient admitted to internal medicine service 04/18. Patient seen and examined. Patient is lethargic does not look in acute distress. Has been afebrile. Labs done this morning showed WBC 16, hemoglobin 13.1, sodium 138, potassium 3.9, BUN 22, creatinine 1.28 04/19. Patient seen and examined. Patient continues to be lethargic but not in any acute distress. Labs from this morning showed WBC 7.7, hemoglobin 13.1, sodium 138, potassium 3.6, BUN 15, and creatinine 0.86. 04/20/2024 Patient is seen in follow-up this morning no acute overnight issues noted scheduled to undergo laparoscopic cholecystectomy today with general surgery. Overall prognosis is guarded given patient's significant history would be considered moderate risk although willing to proceed with surgical intervention. Urology following as well with no plans of surgical intervention at this time and will continue current regimen. Patient's vital signs are stable and patient is afebrile and will await surgical report. Follow-up on repeat labs and replace electrolytes per protocol. Continue to monitor hemoglobin closely. REVIEW OF SYSTEMS: Review of system cannot be obtained as patient is lethargic PHYSICAL EXAMINATION: GENERAL: The patient is lethargic, elderly appearing. Chronically ill looking, obese HEENT: Pupils are round and equally reacting to light. EOMI. No scleral icterus. No conjunctival pallor. Normocephalic, atraumatic. No pharyngeal erythema. No thyromegaly. CARDIOVASCULAR: S1 and S2 muffled. PULMONARY: Diminished breath sounds bilaterally no wheezing or crackles noted. ABDOMEN: Soft, nontender, nondistended, normoactive bowel sounds. No palpable organomegaly. MUSCULOSKELETAL: No joint swelling or deformity. EXTREMITIES: No cyanosis, clubbing, or pedal edema. NEUROLOGICAL: Gross neurological examination did not reveal any focal deficits. Diffusely weak SKIN: No rashes. Assessment: -Sepsis and UTI: Present on admission, cultures pending, urology evaluated with no plans of surgical intervention -HARMEET: Likely due to hypotension versus sepsis/UTI versus nephrosclerosis versus diabetic nephropathy -Abnormal CT finding showing nodularity of the gallbladder wall: With cholelithiasis and scheduled to undergo laparoscopic cholecystectomy today 04/20/2024 -Cholelithiasis -History of type 2 diabetes: Uncontrolled with hyper and hypoglycemia -Seizure disorder -Hyperlipidemia Continue home medication -GERD -Mood disorder -GI prophylaxis -DVT prophylaxis -No code Plan: Patient is scheduled to undergo laparoscopic cholecystectomy and on imaging difficult to exclude neoplasm. Will await surgical report. Given significant comorbidities, considered moderate risk and appears medically stable to undergo surgical intervention. Patient is currently n.p.o. and tentatively scheduled for cholecystectomy on 04/20/2024. Follow-up on repeat labs and replace electrolytes per protocol Continue monitoring Accu-Cheks before meals and at bedtime and monitor closely for any hypoglycemia given patient is n.p.o. Continue on antibiotic therapy and gentle hydration and follow-up with repeat labs Urology has evaluated the patient with chronic Quinones with no plans of surgical intervention at this time Due to multiple complex medical issues, overall prognosis is guarded The impression and plan of care has been dictated by Christianne Gonzales, Nurse Practitioner as directed. Dr. Trevon MD I have performed a history and examination and MDM of this patient, discussed the same with the dictator, and agree with the dictator's assessment and plan as written ,documented as a scribe. Based on total visit time, I have performed more than 50% of the visit. Objective - Vital Signs Vital signs: Vital Signs Temp 98.0 F 04/20/24 00:36 Pulse 58 L 04/20/24 00:36 Resp 15 04/20/24 00:36 BP 143/77 04/20/24 00:36 Pulse Ox 96 04/20/24 00:36 FiO2 Intake & Output 04/19/24 04/20/24 04/20/24 18:59 06:59 18:59 Output Total 3000 Balance -3000 Weight 104.5 kg 106 kg Output: Urine 3000 Other: Voiding Method Indwelling Catheter Indwelling Catheter # Voids 650 # Bowel Movements 1 1 - Labs CBC & Chem 7: 04/20/24 02:22 04/20/24 02:22 Labs: Abnormal Lab Results - Last 24 Hours (Table) 04/20/24 04/20/24 Range/Units 02:22 02:22 RBC 3.99 L (4.30-5.90) m/uL Hgb 12.6 L (13.0-17.5) gm/dL Hct 38.2 L (39.0-53.0) % Chloride 111 H (98-107) mmol/L Calcium 8.1 L (8.4-10.2) mg/dL Total Protein 4.9 L (6.3-8.2) g/dL Albumin 2.4 L (3.5-5.0) g/dL Microbiology - Last 24 Hours (Table) 04/17/24 00:47 Blood Culture - Preliminary Blood
[2024-04-20] MEDS: levETIRAcetam IV 500 MG in SODIUM CHLORIDE 0.9% 250 ML IVPB ONE (10:56)
[2024-04-20 12:02] LABS: Glucose,Whole Blood 107 mg/dL (70-110)
[2024-04-20] MEDS: levETIRAcetam IV 500 MG/5 ML VIAL IVP STA (13:09)
--- NOTE | 2024-04-20 15:24 | P.PN ---
Subjective Progress Note Date: 04/20/24 Principal diagnosis: Reason for follow-up is a complicated UTI Patient is a 68-year-old male with a past medical history significant for CVA TIA dementia hypertension hyperlipidemia prostate disorder as well as hearing disorder and group home resident patient has been sent to the ER from the local group home for evaluation of mental status changes fever noticed to have a complicated UTI with evidence of hydronephrosis on the CT positive UA elevated white count. On today's evaluation that is 04/20/2024, Patient is afebrile patient is currently on room air and does not seem to be any distress patient is more awake and alert however nonverbal and cannot provide any history no vomiting or diarrhea has been reported family the bedside mention patient is doing better. Patient white count 7.3, creatinine 0.84 blood and urine culture have been negative so far Objective - Vital Signs Vital signs: Vital Signs Temp 98.3 F 04/20/24 13:37 Pulse 62 04/20/24 13:37 Resp 18 04/20/24 13:37 BP 142/75 04/20/24 13:37 Pulse Ox 97 04/20/24 13:37 FiO2 Intake & Output 04/19/24 04/20/24 04/20/24 18:59 06:59 18:59 Output Total 3000 650 Balance -3000 -650 Weight 104.5 kg 106 kg Output: Urine 3000 650 Other: Voiding Method Indwelling Catheter Indwelling Catheter Indwelling Catheter # Voids 650 # Bowel Movements 1 1 1 - Exam GENERAL DESCRIPTION: An elderly male lying in bed in no distress RESPIRATORY SYSTEM: Unlabored breathing , decreased breath sounds at bases HEART: S1 S2 regular rate and rhythm , ABDOMEN: Soft , no tenderness EXTREMITIES: No edema feet - Labs CBC & Chem 7: 04/20/24 02:22 04/20/24 02:22 Labs: Abnormal Lab Results - Last 24 Hours (Table) 04/20/24 04/20/24 Range/Units 02:22 02:22 RBC 3.99 L (4.30-5.90) m/uL Hgb 12.6 L (13.0-17.5) gm/dL Hct 38.2 L (39.0-53.0) % Chloride 111 H (98-107) mmol/L Calcium 8.1 L (8.4-10.2) mg/dL Total Protein 4.9 L (6.3-8.2) g/dL Albumin 2.4 L (3.5-5.0) g/dL Microbiology - Last 24 Hours (Table) 04/17/24 00:47 Blood Culture - Preliminary Blood Assessment and Plan (1) Complicated UTI (urinary tract infection) Current Visit: Yes Status: Acute Code(s): N39.0 - URINARY TRACT INFECTION, SITE NOT SPECIFIED SNOMED Code(s): 80355246 (2) Leukocytosis Current Visit: Yes Status: Acute Code(s): D72.829 - ELEVATED WHITE BLOOD CELL COUNT, UNSPECIFIED SNOMED Code(s): 225905354 (3) Sepsis Current Visit: Yes Status: Acute Code(s): A41.9 - SEPSIS, UNSPECIFIED ORGANISM SNOMED Code(s): 52182511 Plan: 1patient presented to hospital with sepsis in this patient who did have fever tachycardia elevated white count source likely complicated UTI and concern for possible obstructive uropathy as patient did have elevated creatinine 2patient CT of abdominal pelvis did shows evidence of hydronephrosis patient has been evaluated by urology recommending no intervention continue with the Quinones catheter 3patient did have resolution of his fever white count normalized, to continue with Rocephin 2 g daily while inpatient will transition to oral antibiotics on discharge Family at the bedside questions answered Dictation was produced using [employer] dictation software. please excuse any grammatical, word or spelling errors. Time with Patient: Less than 30
--- NOTE | 2024-04-20 15:24 | P.PN ---
Subjective Progress Note Date: 04/19/24 Principal diagnosis: Reason for follow-up is a complicated UTI Patient is a 68-year-old male with a past medical history significant for CVA TIA dementia hypertension hyperlipidemia prostate disorder as well as hearing disorder and senior living resident patient has been sent to the ER from the local senior living for evaluation of mental status changes fever noticed to have a complicated UTI with evidence of hydronephrosis on the CT positive UA elevated white count. On today's evaluation that is 04/19/2024, the patient continues to be afebrile, the patient is on room air and breathing comfortably, the Pt is awake but nonverbal and cannot provide any history no vomiting or diarrhea has been reported patient does not seem to be any distress. The patient white count has normalized to 7.7, creatinine 0.86 blood culture pending urine so far negative Objective - Vital Signs Vital signs: Vital Signs Temp 98.3 F 04/19/24 07:12 Pulse 57 L 04/19/24 07:12 Resp 18 04/19/24 07:12 BP 129/74 04/19/24 07:12 Pulse Ox 95 04/19/24 07:12 FiO2 Intake & Output 04/18/24 04/19/24 04/19/24 18:59 06:59 18:59 Intake Total 200 130 Output Total 850 1050 Balance -650 -920 Weight 104.5 kg Intake: Intake, IV Titration 130 Amount Sodium Chloride 0.9% 1, 130 000 ml @ 130 mls/hr IV . Q7H42M [facility] Rx#:[id number] Oral 200 Output: Urine 850 1050 Other: Voiding Method Indwelling Catheter Indwelling Catheter Indwelling Catheter # Voids 700 - Exam GENERAL DESCRIPTION: An elderly male lying in bed in no distress RESPIRATORY SYSTEM: Unlabored breathing , decreased breath sounds at bases HEART: S1 S2 regular rate and rhythm , ABDOMEN: Soft , no tenderness EXTREMITIES: No edema feet - Labs CBC & Chem 7: 04/20/24 02:22 04/20/24 02:22 Labs: Abnormal Lab Results - Last 24 Hours (Table) 04/19/24 04/19/24 Range/Units 08:30 08:30 RBC 4.28 L (4.30-5.90) m/uL Chloride 108 H (98-107) mmol/L Glucose 110 H (74-99) mg/dL Total Protein 5.5 L (6.3-8.2) g/dL Albumin 2.7 L (3.5-5.0) g/dL Microbiology - Last 24 Hours (Table) 04/17/24 00:47 Blood Culture - Preliminary Blood 04/17/24 14:47 Urine Culture - Final Urine,Catheterized Assessment and Plan (1) Complicated UTI (urinary tract infection) Current Visit: Yes Status: Acute Code(s): N39.0 - URINARY TRACT INFECTION, SITE NOT SPECIFIED SNOMED Code(s): 92233251 (2) Leukocytosis Current Visit: Yes Status: Acute Code(s): D72.829 - ELEVATED WHITE BLOOD CELL COUNT, UNSPECIFIED SNOMED Code(s): 355990175 (3) Sepsis Current Visit: Yes Status: Acute Code(s): A41.9 - SEPSIS, UNSPECIFIED ORGANISM SNOMED Code(s): 66485775 Plan: 1patient presented to hospital with sepsis in this patient who did have fever tachycardia elevated white count source likely complicated UTI and concern for possible obstructive uropathy as patient did have elevated creatinine 2patient CT of abdominal pelvis did shows evidence of hydronephrosis patient has been evaluated by urology recommending no intervention continue with the Quinones catheter 3patient did have resolution of his fever white count normalized, to continue with Rocephin 2 g daily, while inpatient and monitor clinical course closely Dictation was produced using [employer] dictation software. please excuse any grammatical, word or spelling errors. Time with Patient: Less than 30
--- NOTE | 2024-04-20 15:50 | P.PN ---
Subjective Progress Note Date: 04/20/24 CHIEF COMPLAINT: Fever HISTORY OF PRESENT ILLNESS: Surgical service following regards to patient's cholelithiasis and right upper quadrant abdominal pain. Patient had gallbladder ultrasound completed that reported cholelithiasis. Cannot exclude neoplasm in the region of the gallbladder fossa/liver. Vital stable. WBC 7.3 Hgb 12.6 platelets 218 creatinine 0.84 LFTs normal. PHYSICAL EXAM: VITAL SIGNS: Reviewed. GENERAL: Well-developed in no acute distress. ABDOMEN: Soft. Nondistended. NEUROLOGIC: Alert and oriented. Cranial nerves II through XII grossly intact. ASSESSMENT: 1. Symptomatic cholelithiasis PLAN: -Patient scheduled for laparoscopic cholecystectomy today with Dr. Holcomb Physician Dialysis Clinical Manager note has been reviewed by physician. Signing provider agrees with the documented findings, assessment, and plan of care. Objective - Vital Signs Vital signs: Vital Signs Temp 97.9 F 04/20/24 07:47 Pulse 61 04/20/24 11:06 Resp 18 04/20/24 11:06 BP 171/90 04/20/24 07:47 Pulse Ox 97 04/20/24 07:47 FiO2 Intake & Output 04/19/24 04/20/24 04/20/24 18:59 06:59 18:59 Output Total 3000 650 Balance -3000 -650 Weight 104.5 kg 106 kg Output: Urine 3000 650 Other: Voiding Method Indwelling Catheter Indwelling Catheter Indwelling Catheter # Voids 650 # Bowel Movements 1 1 1 - Labs CBC & Chem 7: 04/20/24 02:22 04/20/24 02:22 Labs: Abnormal Lab Results - Last 24 Hours (Table) 04/20/24 04/20/24 Range/Units 02:22 02:22 RBC 3.99 L (4.30-5.90) m/uL Hgb 12.6 L (13.0-17.5) gm/dL Hct 38.2 L (39.0-53.0) % Chloride 111 H (98-107) mmol/L Calcium 8.1 L (8.4-10.2) mg/dL Total Protein 4.9 L (6.3-8.2) g/dL Albumin 2.4 L (3.5-5.0) g/dL Microbiology - Last 24 Hours (Table) 04/17/24 00:47 Blood Culture - Preliminary Blood
[2024-04-20 15:57] LABS: Glucose,Whole Blood 79 mg/dL (70-110)
[2024-04-20] MEDS: LACTATED RINGERS 1,000 ML BAG IV STA (16:07)
[2024-04-20] MEDS: ONDANSETRON 4 MG/2 ML VIAL IVP PRN (16:15)
[2024-04-20] MEDS: LACTATED RINGERS 1,000 ML IV ONE (16:17)
[2024-04-20] MEDS ORDERED: LIDOCAINE 1% INJ 10MG/ML (20 ML MDV) ONE (16:40)
[2024-04-20] MEDS ORDERED: SUGAMMADEX SODIUM 200 MG/2 ML SDV IV ONE (16:40)
[2024-04-20] MEDS ORDERED: fentaNYL (PF) 50 MCG/ML 2 ML AMP ONE (16:40)
[2024-04-20] MEDS ORDERED: ROCURONIUM 10 MG/ML (5 ML VIAL) IV ONE (16:40)
[2024-04-20] MEDS ORDERED: PROPOFOL 10 MG/ML 20 ML VIAL IV ONE (16:40)
[2024-04-20] MEDS: BUPIVACAINE (PF) 0.25% 30 ML VIAL SQ ONE (17:09)
--- NOTE | 2024-04-20 17:27 | P.PN ---
Subjective patient is seen for follow-up for acute kidney injury. Maintained on IV fluids. serum creatinine at 0.8 mg/dL. Scheduled for laparoscopic cholecystectomy today. Objective - Vital Signs Vital signs: Vital Signs Temp 97.9 F 04/20/24 15:50 Pulse 65 04/20/24 15:50 Resp 16 04/20/24 15:50 BP 140/93 04/20/24 15:50 Pulse Ox 96 04/20/24 15:50 FiO2 Intake & Output 04/19/24 04/20/24 04/20/24 18:59 06:59 18:59 Intake Total 100 Output Total 3000 650 Balance -3000 -550 Weight 104.5 kg 106 kg Intake: IV 100 Output: Urine 3000 650 Other: Voiding Method Indwelling Catheter Indwelling Catheter Indwelling Catheter # Voids 650 # Bowel Movements 1 1 1 - Exam patient is awake, comfortable Appears euvolemic. Examination of the heart S1 and S2 Examination of the lungs bilateral breath sounds are heard Abdomen is soft nontender Examination of lower extremity shows no evidence of edema Patient communicates with writing. Family member writes the questions on the pa per. - Labs CBC & Chem 7: 04/20/24 02:22 04/20/24 02:22 Labs: Abnormal Lab Results - Last 24 Hours (Table) 04/20/24 04/20/24 Range/Units 02:22 02:22 RBC 3.99 L (4.30-5.90) m/uL Hgb 12.6 L (13.0-17.5) gm/dL Hct 38.2 L (39.0-53.0) % Chloride 111 H (98-107) mmol/L Calcium 8.1 L (8.4-10.2) mg/dL Total Protein 4.9 L (6.3-8.2) g/dL Albumin 2.4 L (3.5-5.0) g/dL Microbiology - Last 24 Hours (Table) 04/17/24 00:47 Blood Culture - Preliminary Blood Assessment and Plan Assessment: 1. HARMEET secondary to ATN from sepsis. Baseline creatinine 0.9, presented at 3.4 now 0.8 today. UA concerning for UTI. 2. Metabolic Acidosis due to HARMEET and lactic acidosis-Improved 3. Sepsis with UTI 4. Metabolic Encephalopathy 5. Hypotension 6. Cholelithiasis, scheduled for laparoscopic cholecystectomy today Plan: continue IV fluids. Repeat labs in a.m.
--- NOTE | 2024-04-20 17:57 | P.OP ---
Date of Procedure: 04/20/24 Preoperative Diagnosis: Cholecystitis Postoperative Diagnosis: Gangrenous cholecystitis with empyema of gallbladder Procedure(s) Performed: Laparoscopic cholecystectomy with drain Anesthesia: CARLENE Surgeon: Kris Holcomb Estimated Blood Loss (ml): 50 Pathology: other (Gallbladder) Condition: stable Disposition: PACU Description of Procedure: The patient was placed on the operating table. The patient received a general endotracheal tube anesthesia. The patients abdomen was prepped and draped in the usual sterile fashion. Through an infraumbilical stab incision, the fascia of the anterior abdominal wall was grasped with a pair of Kochers and then the Veress needle was placed in the peritoneal cavity. Position of the Veress needle was confirmed with positive drop test. The abdomen was then insufflated. After adequate insufflation, the 10 mm trocar was placed in the peritoneal cavity. Following this the laparoscope was placed in the peritoneal cavity. The patient was placed in the head-up, right side up position and then a 5 mm trocar was placed in the right lateral and right subcostal position under direct visualization. A 8 mm trocar was placed in the epigastric position. The gallbladder was grasped in the fundus and infundibulum. Traction on the gallbladder was placed in the lateral and the cephalad positions. The gallbladder appeared to be very inflamed. There was empyema the gallbladder. The gallbladder was full of pus. This was aspirated. The triangle of Calot was visualized.. The cystic duct was bluntly dissected until the union of the cystic duct and common bile duct was seen. A critical view of safety was achieved. The cystic duct was then divided and sealed with the Harmonic scissors. A PDS Endoloop was then placed throughout the cystic duct stump. The cystic artery divided and sealed with the Harmonic scissors. The gallbladder was then removed from the liver bed using Harmonic scissors. The gallbladder was then extracted through the epigastric port site. Operative field was checked for any bleeding spots and Harmonic scissors was used to coagulate the liver bed. The abdomen was irrigated. A drain was placed in the gallbladder fossa and brought through the right lateral trocar site. The trocars were removed. The skin was closed using interrupted 3-0 Vicryl suture. Dermabond dressing were applied. The patient tolerated the procedure well.
[2024-04-20] MEDS ORDERED: NALOXONE 0.4 MG/ML 1 ML VIAL IV PRN (17:58)
[2024-04-20] MEDS ORDERED: ONDANSETRON 4 MG/2 ML VIAL IVP PRN (17:58)
[2024-04-20] MEDS: HYDROmorphone 0.5 MG/0.5 ML SYRINGE IVP ONE (18:30)
[2024-04-20] MEDS: LACTATED RINGERS 1,000 ML IV SCH (18:52)
[2024-04-20] MEDS: IV FLUID CONTINUATION 1,000 ML IV ONE (19:01)
[2024-04-20] MEDS: HYDROcodone/APAP 5-325MG 1 EACH TAB PO PRN (19:48)
[2024-04-20 21:56] LABS: Glucose,Whole Blood 128 mg/dL (70-110)
[2024-04-21] MEDS: HYDROmorphone 1 MG/ML 1 ML SYRINGE IVP PRN (02:18)
[2024-04-21 06:37] LABS: Glucose,Whole Blood 105 mg/dL (70-110)
[2024-04-21 08:44] LABS: Basophils # (A) 0.04 X 10*3/uL (0.00-0.10); Basophils % (A) 0.3 %; Eosinophils # (A) 0.01 X 10*3/uL (0.04-0.35); Eosinophils % (A) 0.1 %; HCT 43.4 % (39.6-50.0); HGB 13.9 g/dL (13.0-17.0); Lymphocytes # (A) 0.81 X 10*3/uL (0.90-5.00); Lymphocytes % (A) 5.4 %; MCH 30.1 pg (27.0-32.0); MCV 93.9 FL (80.0-97.0); Mean Platelet Volume 10.3 FL (9.5-12.2); Monocytes # (A) 1.21 X 10*3/uL (0.20-1.00); Monocytes % (A) 8.1 %; NRBC Per 100 WBC 0 X 10*3/uL (0.00-0.01); Neutrophils # (A) 12.72 X 10*3/uL (1.80-7.70); Neutrophils % (A) 85.4 %; Platelet Count 257 X 10*3/uL (140-440); RBC 4.62 X 10*6/uL (4.40-5.60); RDW 13.4 % (11.5-14.5)
--- NOTE | 2024-04-21 08:59 | CDI ---
Documentation Clarification Form Date: 04/21/2024 From: Marimar Varela RN CCDS Phone: [phone] Admit Date: 04/17/2024 02:25:00 AM Patient Name: Jewel Mcintosh Visit Number: [id number] Discharge Date: ATTENTION: The Clinical Documentation Specialists (CDI) and [facility] Coding Staff appreciate your assistance in clarifying documentation. Please respond to the clarification below the line at the bottom and electronically sign. The CDI & [facility] Coding staff will review the response and follow-up if needed. Please note: Queries are made part of the Legal Health Record. If you have any questions, please contact the author of this message via ITS. Doctor/Provider: Gee Lester MD: UTI is documented in the H&P 04/17 and in subsequent documentation and patient has a chronic indwelling catheter. Additional clarification regarding the etiology of the UTI is requested. History/Risk Factors: 68-year-old male with a history of neurogenic bladder with chronic indwelling catheter and DM2 who presents with AMS Clinical Indicators: 04/17 Triage VS: 85/72, 99.9, 133, 19, 94% on 3liters nasal cannula 04/17 H&P, Assessment and Plan: "#Sepsis and UTI" 04/17 ID consult, Assessment and Plan: "(1) Complicated UTI" 04/19 Urology consult, Assessment: "Impression: Urinary tract infection with sepsis. Neurogenic bladder with chronic indwelling catheter." 04/17 @ 0032, Nursing Notes, Neuro Checks, Neurological Comment: "Patient arrived by EMS from [facility] on the [place]. Patient is non-verbal at this time. Patient's baseline is AO2. Patient is warm to touch and febrile on arrival. Quinones catheter is attached draining bloody urine." 04/17-04/20 WBC: 39.3, 16.0, 7.7, 7.3 04/17 Urinalysis: Color: Light orange, Appearance: Turbid, Protein: 3+, Blood: Moderate, Leukocyte Esterase: Large, RBC: >182, WBC: >182, Bacteria: Many, Mucus: Occasional 04/17 Urine Culture: No growth after 18 hours Treatment: Rocephin 2gram IV [id number] start 04/18 Please clarify the etiology of the UTI, if known: [ ] Quinones catheter [ ] UTI not related to catheter [ ] Other condition, please specify [ ] Unable to determine Quinones catheter MTDD
[2024-04-21 09:09] LABS: ALT 27 U/L (10-49); AST 30 U/L (14-35); Albumin/Globulin Ratio 1.25 Ratio (1.60-3.17); Alkaline Phosphatase 75 U/L (41-126); BUN/Creat Ratio 14.62 Ratio (12.00-20.00); Blood Urea Nitrogen 11.7 mg/dL (9.0-27.0); Calcium 8.1 mg/dL (8.7-10.3); Carbon Dioxide 17.6 mmol/L (21.6-31.8); Chloride 105 mmol/L (96-109); Globulin 2.4 g/dL (1.6-3.3); Glucose 117 mg/dL (70-110); Magnesium 1.4 mg/dL (1.5-2.4); Potassium 4.5 mmol/L (3.5-5.5); Sodium 135 mmol/L (135-145); Total Bilirubin 0.4 mg/dL (0.3-1.2); Total Protein 5.4 g/dL (6.2-8.2)
--- NOTE | 2024-04-21 10:38 | P.PN ---
Subjective 68-year-old male with a past medical history of type 2 diabetes, seizure disorder, mood disorder, hyperlipidemia, and GERD presents for evaluation of altered mental status. Patient is sleeping and not arousable during time of interview. Per the [facility] (where the patient normally stays) the patient typically is A&O x 2 and almost fully deaf so normally communicates through whiteboard. Per the patient's [id number] he has an extensive history of urinary retention and UTIs that have been a big issue in the past. Per the [id number] the patient has had a catheter for about 3 years which she has hospitalized in the past due to inability to remove or replace catheter. Initial lab work from the ER was significant for WBC 39.3, neutrophils 36.7, sodium 134, creatinine 3.44, glucose 161, lactic acid 2.9--> 1.5, UA showed large leukocyte esterase, greater than 182 RBC and WBC, many urine bacteria, 3+ protein. EKG done in the ER showed heart rate of 131 bpm, no ST segment elevation or depression seen, no T-wave inversions seen. Sinus tachycardia with occasional supraventricular premature complexes. ER CXR: Prominent interstitial markings. ER CT ABD: Moderate right and mild to moderate left hydronephrosis with moderate bilateral hydroureter. Some apparent nodularity of the gallbladder wall. Minimal adjacent inflammatory change may be present. Patient admitted to internal medicine service 04/18. Patient seen and examined. Patient is lethargic does not look in acute distress. Has been afebrile. Labs done this morning showed WBC 16, hemoglobin 13.1, sodium 138, potassium 3.9, BUN 22, creatinine 1.28 04/19. Patient seen and examined. Patient continues to be lethargic but not in any acute distress. Labs from this morning showed WBC 7.7, hemoglobin 13.1, sodium 138, potassium 3.6, BUN 15, and creatinine 0.86. 04/20/2024 Patient is seen in follow-up this morning no acute overnight issues noted scheduled to undergo laparoscopic cholecystectomy today with general surgery. Overall prognosis is guarded given patient's significant history would be considered moderate risk although willing to proceed with surgical intervention. Urology following as well with no plans of surgical intervention at this time and will continue current regimen. Patient's vital signs are stable and patient is afebrile and will await surgical report. Follow-up on repeat labs and replace electrolytes per protocol. Continue to monitor hemoglobin closely. 04/21/2024: Patient is seen at bedside. No significant overnight events. Patient underwent successful laparoscopic cholecystectomy yesterday with general surgery, found to have very inflamed gallbladder with copious amounts of pus within the gallbladder. Urology and general surgery following. Vitals within normal limits, will follow-up on labs and replace electrolytes per protocol. Continue to monitor hemoglobin, currently increased from yesterday from 12.6 to now 13.9. REVIEW OF SYSTEMS: Review of system cannot be obtained as patient is lethargic PHYSICAL EXAMINATION: GENERAL: The patient is lethargic, elderly appearing. Chronically ill looking, obese HEENT: Pupils are round and equally reacting to light. EOMI. No scleral icterus. No conjunctival pallor. Normocephalic, atraumatic. No pharyngeal erythema. No thyromegaly. CARDIOVASCULAR: S1 and S2 muffled. PULMONARY: Diminished breath sounds bilaterally no wheezing or crackles noted. ABDOMEN: Soft, nontender, nondistended, normoactive bowel sounds. No palpable organomegaly. MUSCULOSKELETAL: No joint swelling or deformity. EXTREMITIES: No cyanosis, clubbing, or pedal edema. NEUROLOGICAL: Gross neurological examination did not reveal any focal deficits. Diffusely weak SKIN: No rashes. Assessment: -Sepsis and UTI: Present on admission, cultures pending, urology evaluated with no plans of surgical intervention -HARMEET: Likely due to hypotension versus sepsis/UTI versus nephrosclerosis versus diabetic nephropathy -Abnormal CT finding showing nodularity of the gallbladder wall: With cholelithiasis and scheduled to undergo laparoscopic cholecystectomy today 04/20/2024 -Cholelithiasis -History of type 2 diabetes: Uncontrolled with hyper and hypoglycemia -Seizure disorder -Hyperlipidemia Continue home medication -GERD -Mood disorder -GI prophylaxis -DVT prophylaxis -No code Plan: Patient successfully underwent laparoscopic cholecystectomy yesterday, found to have copious amounts of pus within the gallbladder. Change antibiotics to Zosyn for better coverage including anaerobes Patient is currently on dysphagia level 3 chopped diet Follow-up on repeat labs and replace electrolytes per protocol Continue monitoring Accu-Cheks before meals and at bedtime and monitor closely for any hypoglycemia given patient is n.p.o. Gentle hydration and follow-up with repeat labs Urology has evaluated the patient with chronic Quinones with no plans of surgical intervention at this time Due to multiple complex medical issues, overall prognosis is guarded Objective - Vital Signs Vital signs: Vital Signs Temp 98.6 F 04/21/24 07:50 Pulse 100 04/21/24 07:50 Resp 16 04/21/24 07:50 BP 99/57 04/21/24 07:50 Pulse Ox 91 L 04/21/24 07:50 FiO2 Intake & Output 04/20/24 04/21/24 04/21/24 18:59 06:59 18:59 Intake Total 900 100 Output Total 1300 1510 Balance -400 -1410 Weight 106.5 kg Intake: IV 900 100 Output: Drainage 180 Abdomen 180 Urine 1250 725 Stool 525 Estimated Blood Loss 50 Other 80 Other: Voiding Method Indwelling Catheter Indwelling Catheter # Bowel Movements 1 - Labs CBC & Chem 7: 04/21/24 03:35 04/21/24 03:35 Labs: Abnormal Lab Results - Last 24 Hours (Table) 04/20/24 04/21/24 Range/Units 21:54 03:35 WBC 14.90 H (4.50-10.00) X 10*3/uL Immature Gran # 0.11 H (0.00-0.04) X 10*3/uL Neutrophils # 12.72 H (1.80-7.70) X 10*3/uL Lymphocytes # 0.81 L (0.90-5.00) X 10*3/uL Monocytes # 1.21 H (0.20-1.00) X 10*3/uL Eosinophils # 0.01 L (0.04-0.35) X 10*3/uL POC Glucose (mg/dL) 128 H (70-110) mg/dL Microbiology - Last 24 Hours (Table) 04/17/24 00:47 Blood Culture - Preliminary Blood
[2024-04-21] MEDS: SODIUM CHLORIDE 0.9% 1,000 ML IV ONE (10:39)
--- NOTE | 2024-04-21 11:05 | P.PN ---
Subjective Progress Note Date: 04/21/24 CHIEF COMPLAINT: Fever HISTORY OF PRESENT ILLNESS: Postop day #1 status post laparoscopic cholecystectomy with drain. Patient is lying in bed comfortably. No new complaints per nursing staff. Pain is tolerable. No nausea or vomiting. He is afebrile. He has been mildly tachycardic with heart rate of 108. BP 99/57. WBC is up from 7.3-14 Hgb 13.9 platelets 257 magnesium is 1.4. AMANDA drain 180 mL serosanguineous output Patient seen and examined with Dr. Holcomb PHYSICAL EXAM: VITAL SIGNS: Reviewed. GENERAL: no acute distress. ABDOMEN: Soft. Nondistended. Incision sites clean dry and intact. AMANDA drain serosanguineous output ASSESSMENT: 1. Gangrenous cholecystitis with empyema of the gallbladder status post laparoscopic cholecystectomy with drain . Hypomagnesemia PLAN: -Patient is not ready for discharge today -Continue antibiotics -Will give 1 L fluid bolus for tachycardia and mild hypotension -Continue to monitor AMANDA drain output -Continue pain management -Replace magnesium Physician Wood Type Finisher note has been reviewed by physician. Signing provider agrees with the documented findings, assessment, and plan of care. Objective - Vital Signs Vital signs: Vital Signs Temp 98.6 F 04/21/24 07:50 Pulse 100 04/21/24 07:50 Resp 16 04/21/24 07:50 BP 99/57 04/21/24 07:50 Pulse Ox 91 L 04/21/24 07:50 FiO2 Intake & Output 04/20/24 04/21/24 04/21/24 18:59 06:59 18:59 Intake Total 900 100 Output Total 1300 1510 Balance -400 -1410 Weight 106.5 kg Intake: IV 900 100 Output: Drainage 180 Abdomen 180 Urine 1250 725 Stool 525 Estimated Blood Loss 50 Other 80 Other: Voiding Method Indwelling Catheter Indwelling Catheter # Bowel Movements 1 - Labs CBC & Chem 7: 04/21/24 03:35 04/21/24 03:35 Labs: Abnormal Lab Results - Last 24 Hours (Table) 04/20/24 04/21/24 04/21/24 Range/Units 21:54 03:35 03:35 WBC 14.90 H (4.50-10.00) X 10*3/uL Immature Gran # 0.11 H (0.00-0.04) X 10*3/uL Neutrophils # 12.72 H (1.80-7.70) X 10*3/uL Lymphocytes # 0.81 L (0.90-5.00) X 10*3/uL Monocytes # 1.21 H (0.20-1.00) X 10*3/uL Eosinophils # 0.01 L (0.04-0.35) X 10*3/uL Carbon Dioxide 17.6 L (21.6-31.8) mmol/L Anion Gap 12.40 H (4.00-12.00) mmol/L Glucose 117 H (70-110) mg/dL POC Glucose (mg/dL) 128 H (70-110) mg/dL Calcium 8.1 L (8.7-10.3) mg/dL Magnesium 1.4 L (1.5-2.4) mg/dL Total Protein 5.4 L (6.2-8.2) g/dL Albumin 3.0 L (3.8-4.9) g/dL Albumin/Globulin Ratio 1.25 L (1.60-3.17) Ratio Microbiology - Last 24 Hours (Table) 04/17/24 00:47 Blood Culture - Preliminary Blood
[2024-04-21 11:40] LABS: Glucose,Whole Blood 110 mg/dL (70-110)
[2024-04-21] MEDS: MAGNESIUM SULFATE-D5W PMX 1 GM in DEXTROSE/WATER 1 100ML.BAG IVPB SCH (11:54)
[2024-04-21] MEDS ORDERED: PIPERACILLIN-TAZOBACTAM 3.375 GM in SODIUM CHLORIDE 0.9% 100 ML IVPB SCH (12:00)
[2024-04-21] MEDS: HYDROcodone/APAP 5-325MG 1 EACH TAB PO PRN (14:39)
[2024-04-21] MEDS: PIPERACILLIN-TAZOBACTAM 3.375 GM in SODIUM CHLORIDE 0.9% 100 ML IVPB SCH (15:44)
[2024-04-21 16:32] LABS: Glucose,Whole Blood 119 mg/dL (70-110)
[2024-04-21 21:10] LABS: Glucose,Whole Blood 108 mg/dL (70-110)
--- NOTE | 2024-04-21 21:39 | P.PN ---
Subjective patient is seen for follow-up for acute kidney injury. Maintained on IV fluids. serum creatinine at 0.8 mg/dL. S/p laparoscopic cholecystectomy on 04/20/2024 Objective - Vital Signs Vital signs: Vital Signs Temp 98.6 F 04/21/24 13:10 Pulse 104 H 04/21/24 13:10 Resp 18 04/21/24 13:10 BP 140/60 04/21/24 13:10 Pulse Ox 90 L 04/21/24 13:10 FiO2 Intake & Output 04/21/24 04/21/24 04/22/24 06:59 18:59 06:59 Intake Total 100 236 Output Total 1510 650 Balance -1410 -414 Weight 106.5 kg Intake: IV 100 Oral 236 Output: Drainage 180 50 Abdomen 180 50 Urine 725 600 Stool 525 Other 80 Other: Voiding Method Indwelling Catheter - Exam patient is awake, comfortable Appears euvolemic. Examination of the heart S1 and S2 Examination of the lungs bilateral breath sounds are heard Abdomen is soft nontender Examination of lower extremity shows no evidence of edema Patient communicates with writing. Family member writes the questions on the p aper. - Labs CBC & Chem 7: 04/21/24 03:35 04/21/24 03:35 Labs: Abnormal Lab Results - Last 24 Hours (Table) 04/20/24 04/21/24 04/21/24 Range/Units 21:54 03:35 03:35 WBC 14.90 H (4.50-10.00) X 10*3/uL Immature Gran # 0.11 H (0.00-0.04) X 10*3/uL Neutrophils # 12.72 H (1.80-7.70) X 10*3/uL Lymphocytes # 0.81 L (0.90-5.00) X 10*3/uL Monocytes # 1.21 H (0.20-1.00) X 10*3/uL Eosinophils # 0.01 L (0.04-0.35) X 10*3/uL Carbon Dioxide 17.6 L (21.6-31.8) mmol/L Anion Gap 12.40 H (4.00-12.00) mmol/L Glucose 117 H (70-110) mg/dL POC Glucose (mg/dL) 128 H (70-110) mg/dL Calcium 8.1 L (8.7-10.3) mg/dL Magnesium 1.4 L (1.5-2.4) mg/dL Total Protein 5.4 L (6.2-8.2) g/dL Albumin 3.0 L (3.8-4.9) g/dL Albumin/Globulin Ratio 1.25 L (1.60-3.17) Ratio 04/21/24 Range/Units 16:31 WBC (4.50-10.00) X 10*3/uL Immature Gran # (0.00-0.04) X 10*3/uL Neutrophils # (1.80-7.70) X 10*3/uL Lymphocytes # (0.90-5.00) X 10*3/uL Monocytes # (0.20-1.00) X 10*3/uL Eosinophils # (0.04-0.35) X 10*3/uL Carbon Dioxide (21.6-31.8) mmol/L Anion Gap (4.00-12.00) mmol/L Glucose (70-110) mg/dL POC Glucose (mg/dL) 119 H (70-110) mg/dL Calcium (8.7-10.3) mg/dL Magnesium (1.5-2.4) mg/dL Total Protein (6.2-8.2) g/dL Albumin (3.8-4.9) g/dL Albumin/Globulin Ratio (1.60-3.17) Ratio Microbiology - Last 24 Hours (Table) 04/17/24 00:47 Blood Culture - Preliminary Blood Assessment and Plan Assessment: 1. HARMEET secondary to ATN from sepsis. Baseline creatinine 0.9, presented at 3.4 now 0.8 today. UA concerning for UTI. 2. Metabolic Acidosis due to HARMEET and lactic acidosis-Improved 3. Sepsis with UTI 4. Metabolic Encephalopathy 5. Hypotension 6. Cholelithiasis, status post laparoscopic cholecystectomy on 04/20/2024 Plan: continue IV fluids. Repeat labs in a.m.
[2024-04-22] MEDS: ACETAMINOPHEN TAB 325 MG TAB PO PRN (02:47)
[2024-04-22 06:33] LABS: Glucose,Whole Blood 123 mg/dL (70-110)
[2024-04-22 08:39] LABS: HCT 39.5 % (39.6-50.0); HGB 13.1 g/dL (13.0-17.0); MCH 31.3 pg (27.0-32.0); MCHC 33.2 g/dL (32.0-37.0); MCV 94.5 FL (80.0-97.0); Mean Platelet Volume 10.6 FL (9.5-12.2); NRBC Per 100 WBC 0 X 10*3/uL (0.00-0.01); Platelet Count 223 X 10*3/uL (140-440); RBC 4.18 X 10*6/uL (4.40-5.60); RDW 13.5 % (11.5-14.5); WBC 14.46 X 10*3/uL (4.50-10.00)
[2024-04-22 08:40] LABS: ALT 21 U/L (10-49); AST 17 U/L (14-35); Albumin 2.9 g/dL (3.8-4.9); Albumin/Globulin Ratio 1.26 Ratio (1.60-3.17); Alkaline Phosphatase 69 U/L (41-126); BUN/Creat Ratio 11.56 Ratio (12.00-20.00); Blood Urea Nitrogen 10.4 mg/dL (9.0-27.0); Calcium 7.9 mg/dL (8.7-10.3); Carbon Dioxide 20.8 mmol/L (21.6-31.8); Chloride 104 mmol/L (96-109); Globulin 2.3 g/dL (1.6-3.3); Glucose 112 mg/dL (70-110); Magnesium 1.7 mg/dL (1.5-2.4); Potassium 3.9 mmol/L (3.5-5.5); Sodium 136 mmol/L (135-145); Total Bilirubin 0.4 mg/dL (0.3-1.2); Total Protein 5.2 g/dL (6.2-8.2)
[2024-04-22 09:40] LABS: Basophils # (A) 0.04 X 10*3/uL (0.00-0.10); Basophils % (A) 0.3 %; Eosinophils % (A) 0.7 %; Lymphocytes % (A) 8.3 %; Monocytes # (A) 1.63 X 10*3/uL (0.20-1.00); Monocytes % (A) 11.3 %; Neutrophils # (A) 11.38 X 10*3/uL (1.80-7.70); Neutrophils % (A) 78.6 %
[2024-04-22 12:10] LABS: Glucose,Whole Blood 114 mg/dL (70-110)
--- NOTE | 2024-04-22 13:29 | P.PN ---
Subjective Progress Note Date: 04/22/24 CHIEF COMPLAINT: Fever HISTORY OF PRESENT ILLNESS: Postop day #2 status post laparoscopic cholecystectomy with drain. Patient had a bedside sitter place due to him pulling at his drain. Patient resting in bed comfortably. No new complaints. AMANDA drain 50 mL serosanguineous output. Afebrile. Tachycardia and hypotension improved with fluids. WBC about the same at 14.46 Hgb 13.1 magnesium level up from 1.4-1.7 PHYSICAL EXAM: VITAL SIGNS: Reviewed. GENERAL: no acute distress. ABDOMEN: Soft. Nondistended. Incision sites clean dry and intact. AMANDA drain serosanguineous output ASSESSMENT: 1. Gangrenous cholecystitis with empyema of the gallbladder status post laparoscopic cholecystectomy with drain 2. Hypomagnesemia improving PLAN: -Recommend to keep patient 1 more day and monitor white count. Repeat CBC in a.m. -Continue antibiotics -Continue to monitor AMANDA drain output -Continue pain management -Continue chopped diet Physician Cylinder Valve Repairer note has been reviewed by physician. Signing provider agrees with the documented findings, assessment, and plan of care. Objective - Vital Signs Vital signs: Vital Signs Temp 97.8 F 04/22/24 07:33 Pulse 94 04/22/24 07:33 Resp 20 04/22/24 07:33 BP 112/65 04/22/24 07:33 Pulse Ox 92 L 04/22/24 07:33 FiO2 Intake & Output 04/21/24 04/22/24 04/22/24 18:59 06:59 18:59 Intake Total 236 Output Total 650 1225 Balance -414 -1225 Weight 105.5 kg Intake: Oral 236 Output: Drainage 50 Abdomen 50 Urine 600 700 Stool 525 Other: Voiding Method Indwelling Catheter - Labs CBC & Chem 7: 04/22/24 04:36 04/22/24 04:36 Labs: Abnormal Lab Results - Last 24 Hours (Table) 04/21/24 04/22/24 04/22/24 Range/Units 16:31 04:36 04:36 WBC 14.46 H (4.50-10.00) X 10*3/uL RBC 4.18 L (4.40-5.60) X 10*6/uL Hct 39.5 L (39.6-50.0) % Immature Gran # 0.11 H (0.00-0.04) X 10*3/uL Neutrophils # 11.38 H (1.80-7.70) X 10*3/uL Monocytes # 1.63 H (0.20-1.00) X 10*3/uL Carbon Dioxide 20.8 L (21.6-31.8) mmol/L BUN/Creatinine Ratio 11.56 L (12.00-20.00) Ratio Glucose 112 H (70-110) mg/dL POC Glucose (mg/dL) 119 H (70-110) mg/dL Calcium 7.9 L (8.7-10.3) mg/dL Total Protein 5.2 L (6.2-8.2) g/dL Albumin 2.9 L (3.8-4.9) g/dL Albumin/Globulin Ratio 1.26 L (1.60-3.17) Ratio 04/22/24 04/22/24 Range/Units 06:32 12:08 WBC (4.50-10.00) X 10*3/uL RBC (4.40-5.60) X 10*6/uL Hct (39.6-50.0) % Immature Gran # (0.00-0.04) X 10*3/uL Neutrophils # (1.80-7.70) X 10*3/uL Monocytes # (0.20-1.00) X 10*3/uL Carbon Dioxide (21.6-31.8) mmol/L BUN/Creatinine Ratio (12.00-20.00) Ratio Glucose (70-110) mg/dL POC Glucose (mg/dL) 123 H 114 H (70-110) mg/dL Calcium (8.7-10.3) mg/dL Total Protein (6.2-8.2) g/dL Albumin (3.8-4.9) g/dL Albumin/Globulin Ratio (1.60-3.17) Ratio
--- NOTE | 2024-04-22 14:41 | P.PN ---
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 On today's evaluation that is 04/21/2024, patient has been afebrile, patient is breathing comfortably and is currently on room air, patient does not seem to be any distress no vomiting or diarrhea has been reported. Patient went to stand up to 14.90, creatinine 0.8 blood urine has been negative Objective - Vital Signs Vital signs: Vital Signs Temp 98.6 F 04/21/24 07:50 Pulse 100 04/21/24 07:50 Resp 16 04/21/24 07:50 BP 99/57 04/21/24 07:50 Pulse Ox 91 L 04/21/24 07:50 FiO2 Intake & Output 04/20/24 04/21/24 04/21/24 18:59 06:59 18:59 Intake Total 900 100 Output Total 1300 1510 Balance -400 -1410 Weight 106.5 kg Intake: IV 900 100 Output: Drainage 180 Abdomen 180 Urine 1250 725 Stool 525 Estimated Blood Loss 50 Other 80 Other: Voiding Method Indwelling Catheter Indwelling Catheter # Bowel Movements 1 - Exam GENERAL DESCRIPTION: An elderly male lying in bed in no distress RESPIRATORY SYSTEM: Unlabored breathing , decreased breath sounds at bases HEART: S1 S2 regular rate and rhythm , ABDOMEN: Soft , no tenderness EXTREMITIES: No edema feet - Labs CBC & Chem 7: 04/22/24 04:36 04/22/24 04:36 Labs: Abnormal Lab Results - Last 24 Hours (Table) 04/20/24 04/21/24 04/21/24 Range/Units 21:54 03:35 03:35 WBC 14.90 H (4.50-10.00) X 10*3/uL Immature Gran # 0.11 H (0.00-0.04) X 10*3/uL Neutrophils # 12.72 H (1.80-7.70) X 10*3/uL Lymphocytes # 0.81 L (0.90-5.00) X 10*3/uL Monocytes # 1.21 H (0.20-1.00) X 10*3/uL Eosinophils # 0.01 L (0.04-0.35) X 10*3/uL Carbon Dioxide 17.6 L (21.6-31.8) mmol/L Anion Gap 12.40 H (4.00-12.00) mmol/L Glucose 117 H (70-110) mg/dL POC Glucose (mg/dL) 128 H (70-110) mg/dL Calcium 8.1 L (8.7-10.3) mg/dL Magnesium 1.4 L (1.5-2.4) mg/dL Total Protein 5.4 L (6.2-8.2) g/dL Albumin 3.0 L (3.8-4.9) g/dL Albumin/Globulin Ratio 1.25 L (1.60-3.17) Ratio Microbiology - Last 24 Hours (Table) 04/17/24 00:47 Blood Culture - Preliminary Blood Assessment and Plan (1) Complicated UTI (urinary tract infection) Current Visit: Yes Status: Acute Code(s): N39.0 - URINARY TRACT INFECTION, SITE NOT SPECIFIED SNOMED Code(s): 17301404 (2) Leukocytosis Current Visit: Yes Status: Acute Code(s): D72.829 - ELEVATED WHITE BLOOD CELL COUNT, UNSPECIFIED SNOMED Code(s): 036097017 (3) Sepsis Current Visit: Yes Status: Acute Code(s): A41.9 - SEPSIS, UNSPECIFIED ORGANISM SNOMED Code(s): 90540489 Plan: 1patient presented to hospital with sepsis in this patient who did have fever tachycardia elevated white count source likely complicated UTI and concern for possible obstructive uropathy as patient did have elevated creatinine 2patient CT of abdominal pelvis did shows evidence of hydronephrosis patient has been evaluated by urology recommending no intervention continue with the Quinones catheter 3patient did have slight worsening of his white count antibiotic has been switched to Zosyn to continue to monitor clinical course closely Dictation was produced using [employer] dictation software. please excuse any grammatical, word or spelling errors. Time with Patient: Less than 30
--- NOTE | 2024-04-22 14:50 | P.PN ---
Subjective 68-year-old male with a past medical history of type 2 diabetes, seizure disorder, mood disorder, hyperlipidemia, and GERD presents for evaluation of altered mental status. Patient is sleeping and not arousable during time of interview. Per the [facility] (where the patient normally stays) the patient typically is A&O x 2 and almost fully deaf so normally communicates through whiteboard. Per the patient's [id number] he has an extensive history of urinary retention and UTIs that have been a big issue in the past. Per the [id number] the patient has had a catheter for about 3 years which she has hospitalized in the past due to inability to remove or replace catheter. Initial lab work from the ER was significant for WBC 39.3, neutrophils 36.7, sodium 134, creatinine 3.44, glucose 161, lactic acid 2.9--> 1.5, UA showed large leukocyte esterase, greater than 182 RBC and WBC, many urine bacteria, 3+ protein. EKG done in the ER showed heart rate of 131 bpm, no ST segment elevation or depression seen, no T-wave inversions seen. Sinus tachycardia with occasional supraventricular premature complexes. ER CXR: Prominent interstitial markings. ER CT ABD: Moderate right and mild to moderate left hydronephrosis with moderate bilateral hydroureter. Some apparent nodularity of the gallbladder wall. Minimal adjacent inflammatory change may be present. Patient admitted to internal medicine service 04/18. Patient seen and examined. Patient is lethargic does not look in acute distress. Has been afebrile. Labs done this morning showed WBC 16, hemoglobin 13.1, sodium 138, potassium 3.9, BUN 22, creatinine 1.28 04/19. Patient seen and examined. Patient continues to be lethargic but not in any acute distress. Labs from this morning showed WBC 7.7, hemoglobin 13.1, sodium 138, potassium 3.6, BUN 15, and creatinine 0.86. 04/20/2024 Patient is seen in follow-up this morning no acute overnight issues noted scheduled to undergo laparoscopic cholecystectomy today with general surgery. Overall prognosis is guarded given patient's significant history would be considered moderate risk although willing to proceed with surgical intervention. Urology following as well with no plans of surgical intervention at this time and will continue current regimen. Patient's vital signs are stable and patient is afebrile and will await surgical report. Follow-up on repeat labs and replace electrolytes per protocol. Continue to monitor hemoglobin closely. 04/21/2024: Patient is seen at bedside. No significant overnight events. Patient underwent successful laparoscopic cholecystectomy yesterday with general surgery, found to have very inflamed gallbladder with copious amounts of pus within the gallbladder. Urology and general surgery following. Vitals within normal limits, will follow-up on labs and replace electrolytes per protocol. Continue to monitor hemoglobin, currently increased from yesterday from 12.6 to now 13.9. 04/22/2024: Patient seen at bedside, no significant overnight events. Patient's hemoglobin continues to be stable, white count remains elevated at 14.46. Repeat blood cultures ordered yesterday. REVIEW OF SYSTEMS: Review of system cannot be obtained as patient is lethargic PHYSICAL EXAMINATION: GENERAL: The patient is lethargic, elderly appearing. Chronically ill looking, obese HEENT: Pupils are round and equally reacting to light. EOMI. No scleral icterus. No conjunctival pallor. Normocephalic, atraumatic. No pharyngeal erythema. No thyromegaly. CARDIOVASCULAR: S1 and S2 muffled. PULMONARY: Diminished breath sounds bilaterally no wheezing or crackles noted. ABDOMEN: Soft, nontender, nondistended, normoactive bowel sounds. No palpable organomegaly. MUSCULOSKELETAL: No joint swelling or deformity. EXTREMITIES: No cyanosis, clubbing, or pedal edema. NEUROLOGICAL: Gross neurological examination did not reveal any focal deficits. Diffusely weak SKIN: No rashes. Assessment: -Sepsis and UTI: Present on admission, cultures pending, urology evaluated with no plans of surgical intervention -HARMEET: Likely due to hypotension versus sepsis/UTI versus nephrosclerosis versus diabetic nephropathy -Abnormal CT finding showing nodularity of the gallbladder wall: With cholelithiasis and scheduled to undergo laparoscopic cholecystectomy today 04/20/2024 -Cholelithiasis -History of type 2 diabetes: Uncontrolled with hyper and hypoglycemia -Seizure disorder -Hyperlipidemia Continue home medication -GERD -Mood disorder -GI prophylaxis -DVT prophylaxis -No code Plan: Patient successfully underwent laparoscopic cholecystectomy yesterday, found to have copious amounts of pus within the gallbladder. Per general surgery recommend keeping patient 1 more day for observation, and we are in agreement with this. Change antibiotics to Zosyn for better coverage including anaerobes Follow-up on new blood culture results. Patient is currently on dysphagia level 3 chopped diet Follow-up on repeat labs and replace electrolytes per protocol Continue monitoring Accu-Cheks before meals and at bedtime and monitor closely for any hypoglycemia given patient is n.p.o. Gentle hydration and follow-up with repeat labs Urology has evaluated the patient with chronic Quinones with no plans of surgical intervention at this time Due to multiple complex medical issues, overall prognosis is guarded Objective - Vital Signs Vital signs: Vital Signs Temp 97.8 F 04/22/24 07:33 Pulse 94 04/22/24 07:33 Resp 20 04/22/24 07:33 BP 112/65 04/22/24 07:33 Pulse Ox 92 L 04/22/24 07:33 FiO2 Intake & Output 04/21/24 04/22/24 04/22/24 18:59 06:59 18:59 Intake Total 236 Output Total 650 1225 Balance -414 -1225 Weight 105.5 kg Intake: Oral 236 Output: Drainage 50 Abdomen 50 Urine 600 700 Stool 525 Other: Voiding Method Indwelling Catheter - Labs CBC & Chem 7: 04/22/24 04:36 04/22/24 04:36 Labs: Abnormal Lab Results - Last 24 Hours (Table) 04/21/24 04/21/24 04/22/24 Range/Units 03:35 16:31 04:36 WBC 14.46 H (4.50-10.00) X 10*3/uL RBC 4.18 L (4.40-5.60) X 10*6/uL Hct 39.5 L (39.6-50.0) % Carbon Dioxide 17.6 L (21.6-31.8) mmol/L Anion Gap 12.40 H (4.00-12.00) mmol/L BUN/Creatinine Ratio (12.00-20.00) Ratio Glucose 117 H (70-110) mg/dL POC Glucose (mg/dL) 119 H (70-110) mg/dL Calcium 8.1 L (8.7-10.3) mg/dL Magnesium 1.4 L (1.5-2.4) mg/dL Total Protein 5.4 L (6.2-8.2) g/dL Albumin 3.0 L (3.8-4.9) g/dL Albumin/Globulin Ratio 1.25 L (1.60-3.17) Ratio 10/17/24 10/17/24 Range/Units 04:36 06:32 WBC (4.50-10.00) X 10*3/uL RBC (4.40-5.60) X 10*6/uL Hct (39.6-50.0) % Carbon Dioxide 20.8 L (21.6-31.8) mmol/L Anion Gap (4.00-12.00) mmol/L BUN/Creatinine Ratio 11.56 L (12.00-20.00) Ratio Glucose 112 H (70-110) mg/dL POC Glucose (mg/dL) 123 H (70-110) mg/dL Calcium 7.9 L (8.7-10.3) mg/dL Magnesium (1.5-2.4) mg/dL Total Protein 5.2 L (6.2-8.2) g/dL Albumin 2.9 L (3.8-4.9) g/dL Albumin/Globulin Ratio 1.26 L (1.60-3.17) Ratio
--- NOTE | 2024-04-22 15:54 | P.PN ---
Subjective Progress Note Date: 04/22/24 Principal diagnosis: Reason for follow-up is a complicated UTI Patient is a 68-year-old male with a past medical history significant for CVA TIA dementia hypertension hyperlipidemia prostate disorder as well as hearing disorder and [facility] resident patient has been sent to the [facility] the local [facility] for evaluation of mental status changes fever noticed to have a complicated UTI with evidence of hydronephrosis on the CT positive UA elevated white count. On today's evaluation that is 04/22/2024, Patient is afebrile this morning patient is breathing comfortably is currently on room air he did have a sitter at the bedside as the patient apparently has been pulling on his abdominal drainage catheter placed after cholecystectomy no vomiting diarrhea any change reported by the nursing staff patient could not provide any history. The patient white count is 14.46, creatinine 0.9 blood urine culture have been negative Objective - Vital Signs Vital signs: Vital Signs Temp 97.8 F 04/22/24 07:33 Pulse 94 04/22/24 07:33 Resp 20 04/22/24 07:33 BP 112/65 04/22/24 07:33 Pulse Ox 92 L 04/22/24 07:33 FiO2 Intake & Output 04/21/24 04/22/24 04/22/24 18:59 06:59 18:59 Intake Total 236 Output Total 650 1225 Balance -414 -1225 Weight 105.5 kg Intake: Oral 236 Output: Drainage 50 Abdomen 50 Urine 600 700 Stool 525 Other: Voiding Method Indwelling Catheter - Exam GENERAL DESCRIPTION: An elderly male lying in bed in no distress RESPIRATORY SYSTEM: Unlabored breathing , decreased breath sounds at bases HEART: S1 S2 regular rate and rhythm , ABDOMEN: Soft , no tenderness EXTREMITIES: No edema feet - Labs CBC & Chem 7: 04/22/24 04:36 04/22/24 04:36 Labs: Abnormal Lab Results - Last 24 Hours (Table) 04/21/24 04/22/24 04/22/24 Range/Units 16:31 04:36 04:36 WBC 14.46 H (4.50-10.00) X 10*3/uL RBC 4.18 L (4.40-5.60) X 10*6/uL Hct 39.5 L (39.6-50.0) % Immature Gran # 0.11 H (0.00-0.04) X 10*3/uL Neutrophils # 11.38 H (1.80-7.70) X 10*3/uL Monocytes # 1.63 H (0.20-1.00) X 10*3/uL Carbon Dioxide 20.8 L (21.6-31.8) mmol/L BUN/Creatinine Ratio 11.56 L (12.00-20.00) Ratio Glucose 112 H (70-110) mg/dL POC Glucose (mg/dL) 119 H (70-110) mg/dL Calcium 7.9 L (8.7-10.3) mg/dL Total Protein 5.2 L (6.2-8.2) g/dL Albumin 2.9 L (3.8-4.9) g/dL Albumin/Globulin Ratio 1.26 L (1.60-3.17) Ratio 04/22/24 04/22/24 Range/Units 06:32 12:08 WBC (4.50-10.00) X 10*3/uL RBC (4.40-5.60) X 10*6/uL Hct (39.6-50.0) % Immature Gran # (0.00-0.04) X 10*3/uL Neutrophils # (1.80-7.70) X 10*3/uL Monocytes # (0.20-1.00) X 10*3/uL Carbon Dioxide (21.6-31.8) mmol/L BUN/Creatinine Ratio (12.00-20.00) Ratio Glucose (70-110) mg/dL POC Glucose (mg/dL) 123 H 114 H (70-110) mg/dL Calcium (8.7-10.3) mg/dL Total Protein (6.2-8.2) g/dL Albumin (3.8-4.9) g/dL Albumin/Globulin Ratio (1.60-3.17) Ratio Assessment and Plan (1) Complicated UTI (urinary tract infection) Current Visit: Yes Status: Acute Code(s): N39.0 - URINARY TRACT INFECTION, SITE NOT SPECIFIED SNOMED Code(s): 81084958 (2) Leukocytosis Current Visit: Yes Status: Acute Code(s): D72.829 - ELEVATED WHITE BLOOD C ELL COUNT, UNSPECIFIED SNOMED Code(s): 175875391 (3) Sepsis Current Visit: Yes Status: Acute Code(s): A41.9 - SEPSIS, UNSPECIFIED ORGANISM SNOMED Code(s): 11853349 Plan: 1patient presented to hospital with sepsis in this patient who did have fever tachycardia elevated white count source likely complicated UTI and concern for possible obstructive uropathy as patient did have elevated creatinine 2patient CT of abdominal pelvis did shows evidence of hydronephrosis patient has been evaluated by urology recommending no intervention continue with the Quinones catheter 3patient also have evidence of gallstones s/p cholecystectomy biopsy report pending did have slight worsening of the white count antibiotic adjusted to Zosyn to continue we will repeat his CBC with a.m. lab Dictation was produced using [employer] dictation software. please excuse any grammatical, word or spelling errors.
[2024-04-22 16:41] LABS: Glucose,Whole Blood 108 mg/dL (70-110)
--- NOTE | 2024-04-22 17:50 | P.PN ---
Subjective patient is seen for follow-up for acute kidney injury. Maintained on IV fluids. serum creatinine at 0.8 mg/dL. S/p laparoscopic cholecystectomy on 04/20/2024 No significant complaints. Objective - Vital Signs Vital signs: Vital Signs Temp 97.8 F 04/22/24 07:33 Pulse 91 04/22/24 16:27 Resp 17 04/22/24 16:27 BP 119/71 04/22/24 16:27 Pulse Ox 93 L 04/22/24 16:27 FiO2 Intake & Output 04/21/24 04/22/24 04/22/24 18:59 06:59 18:59 Intake Total 236 Output Total 650 1225 370 Balance -414 -1225 -370 Weight 105.5 kg Intake: Oral 236 Output: Drainage 50 60 Abdomen 50 60 Urine 600 700 310 Stool 525 Other: Voiding Method Indwelling Catheter - Exam patient is awake, comfortable Appears euvolemic. Examination of the heart S1 and S2 Examination of the lungs bilateral breath sounds are heard Abdomen is soft nontender Examination of lower extremity shows no evidence of edema Patient communicates with writing. Family member writes the questions on the paper. - Labs CBC & Chem 7: 04/22/24 04:36 04/22/24 04:36 Labs: Abnormal Lab Results - Last 24 Hours (Table) 04/22/24 04/22/24 04/22/24 Range/Units 04:36 04:36 06:32 WBC 14.46 H (4.50-10.00) X 10*3/uL RBC 4.18 L (4.40-5.60) X 10*6/uL Hct 39.5 L (39.6-50.0) % Immature Gran # 0.11 H (0.00-0.04) X 10*3/uL Neutrophils # 11.38 H (1.80-7.70) X 10*3/uL Monocytes # 1.63 H (0.20-1.00) X 10*3/uL Carbon Dioxide 20.8 L (21.6-31.8) mmol/L BUN/Creatinine Ratio 11.56 L (12.00-20.00) Ratio Glucose 112 H (70-110) mg/dL POC Glucose (mg/dL) 123 H (70-110) mg/dL Calcium 7.9 L (8.7-10.3) mg/dL Total Protein 5.2 L (6.2-8.2) g/dL Albumin 2.9 L (3.8-4.9) g/dL Albumin/Globulin Ratio 1.26 L (1.60-3.17) Ratio 04/22/24 Range/Units 12:08 WBC (4.50-10.00) X 10*3/uL RBC (4.40-5.60) X 10*6/uL Hct (39.6-50.0) % Immature Gran # (0.00-0.04) X 10*3/uL Neutrophils # (1.80-7.70) X 10*3/uL Monocytes # (0.20-1.00) X 10*3/uL Carbon Dioxide (21.6-31.8) mmol/L BUN/Creatinine Ratio (12.00-20.00) Ratio Glucose (70-110) mg/dL POC Glucose (mg/dL) 114 H (70-110) mg/dL Calcium (8.7-10.3) mg/dL Total Protein (6.2-8.2) g/dL Albumin (3.8-4.9) g/dL Albumin/Globulin Ratio (1.60-3.17) Ratio Microbiology - Last 24 Hours (Table) 04/21/24 11:58 Blood Culture - Preliminary Blood Assessment and Plan Assessment: 1. HARMEET secondary to ATN from sepsis. Baseline creatinine 0.9, presented at 3.[address] scan showed mild bilateral hydronephrosis. This appears to be mostly chronic. Patient has chronic indwelling Quinones catheter. 2. Metabolic Acidosis due to HARMEET and lactic acidosis-Improved 3. Sepsis with UTI 4. Metabolic Encephalopathy 5. Hypotension 6. Cholelithiasis, status post laparoscopic cholecystectomy on 04/20/2024 7. Chronic bilateral hydronephrosis with stable renal function and chronic indwelling Quinones catheter. Being followed by urology with no plans for intervention at this time. Plan: continue IV fluids. Repeat labs in a.m. Pain control
[2024-04-22 21:20] LABS: Glucose,Whole Blood 100 mg/dL (70-110)
[2024-04-23 06:46] LABS: Glucose,Whole Blood 79 mg/dL (70-110)
[2024-04-23 10:39] LABS: Basophils # (A) 0.04 X 10*3/uL (0.00-0.10); Basophils % (A) 0.3 %; Eosinophils # (A) 0.34 X 10*3/uL (0.04-0.35); Eosinophils % (A) 2.6 %; HCT 39.9 % (39.6-50.0); HGB 12.8 g/dL (13.0-17.0); Lymphocytes # (A) 1.18 X 10*3/uL (0.90-5.00); MCHC 32.1 g/dL (32.0-37.0); MCV 93.7 FL (80.0-97.0); Mean Platelet Volume 10.3 FL (9.5-12.2); Monocytes # (A) 1.02 X 10*3/uL (0.20-1.00); Monocytes % (A) 7.8 %; NRBC Per 100 WBC 0 X 10*3/uL (0.00-0.01); Neutrophils % (A) 78.9 %; Platelet Count 248 X 10*3/uL (140-440); RBC 4.26 X 10*6/uL (4.40-5.60); RDW 13.7 % (11.5-14.5); WBC 13.06 X 10*3/uL (4.50-10.00)
[2024-04-23 11:02] LABS: BUN/Creat Ratio 11.56 Ratio (12.00-20.00); Blood Urea Nitrogen 10.4 mg/dL (9.0-27.0); Carbon Dioxide 21.6 mmol/L (21.6-31.8); Chloride 104 mmol/L (96-109); Glucose 78 mg/dL (70-110); Sodium 136 mmol/L (135-145)
--- NOTE | 2024-04-23 11:10 | XR ---
EXAMINATION TYPE: XR chest 1V portable DATE OF EXAM: 04/23/2024 COMPARISON: 04/17/2024 HISTORY: Shortness of breath TECHNIQUE: Single frontal view of the chest is obtained. FINDINGS: There is no focal air space opacity, pleural effusion, or pneumothorax seen. The cardiac silhouette size is within normal limits. The osseous structures are intact. IMPRESSION: No acute cardiopulmonary disease with no interval change. [facility], , 04/23/2024 11:08 AM
[2024-04-23 11:43] LABS: Glucose,Whole Blood 111 mg/dL (70-110)
--- NOTE | 2024-04-23 13:07 | P.PN ---
Subjective Progress Note Date: 04/23/24 CHIEF COMPLAINT: Fever HISTORY OF PRESENT ILLNESS: Postop day #3 status post laparoscopic cholecystectomy with drain. Patient is lying in bed comfortably. Per nursing staff patient had been trying to pull at his AMANDA drain. AMANDA drain is still currently intact. There was 140 mL serosanguineous output. Afebrile. No further tachycardia. WBC is down from 14-13 PHYSICAL EXAM: VITAL SIGNS: Reviewed. GENERAL: no acute distress. ABDOMEN: Soft. Nondistended. Incision sites clean dry and intact. AMANDA drain serosanguineous output ASSESSMENT: 1. Gangrenous cholecystitis with empyema of the gallbladder status post laparoscopic cholecystectomy with drain PLAN: -Patient can be discharged from surgical standpoint -Continue antibiotics at discharge -Keep AMANDA drain at discharge Physician [employer] note has been reviewed by physician. Signing provider agrees with the documented findings, assessment, and plan of care. Objective - Vital Signs Vital signs: Vital Signs Temp 98.1 F 04/23/24 07:52 Pulse 75 04/23/24 07:52 Resp 18 04/23/24 07:52 BP 112/65 04/23/24 07:52 Pulse Ox 98 04/23/24 07:52 FiO2 Intake & Output 04/22/24 04/23/24 04/23/24 18:59 06:59 18:59 Output Total 370 890 Balance -370 -890 Weight 110 kg Output: Drainage 60 140 Abdomen 60 140 Urine 310 750 Other: Voiding Method Indwelling Catheter - Labs CBC & Chem 7: 04/23/24 03:45 04/23/24 03:45 Labs: Abnormal Lab Results - Last 24 Hours (Table) 04/23/24 04/23/24 04/23/24 Range/Units 03:45 03:45 11:41 WBC 13.06 H (4.50-10.00) X 10*3/uL RBC 4.26 L (4.40-5.60) X 10*6/uL Hgb 12.8 L (13.0-17.0) g/dL Immature Gran # 0.18 H (0.00-0.04) X 10*3/uL Neutrophils # 10.30 H (1.80-7.70) X 10*3/uL Monocytes # 1.02 H (0.20-1.00) X 10*3/uL BUN/Creatinine Ratio 11.56 L (12.00-20.00) Ratio POC Glucose (mg/dL) 111 H (70-110) mg/dL Calcium 8.0 L (8.7-10.3) mg/dL Microbiology - Last 24 Hours (Table) 04/17/24 00:47 Blood Culture - Final Blood 04/21/24 11:58 Blood Culture - Preliminary Blood
[2024-04-23 13:45] VITALS: BP 137/84; PULSE 99; RESP 22; TEMP 98.4
[2024-04-23 14:46] VITALS: BMI 32.8
--- NOTE | 2024-04-23 14:47 | P.DS ---
Providers Date of admission: 04/17/24 02:25 Attending physician: Gee Lester Consults: 04/17/24 02:28 Consult Physician Routine Consulting Provider: Vasu Wilson Consult Reason/Comments: HARMEET Do you want consulting provider notified?: Yes 04/17/24 10:14 Consult Physician Routine Consulting Provider: Zina Gr Consult Reason/Comments: Complicated UTI Do you want consulting provider notified?: Yes 04/19/24 09:17 Consult Physician Urgent Consulting Provider: Alex Sanford Consult Reason/Comments: obstructive uropathy Do you want consulting provider notified?: Yes 04/19/24 13:19 Consult Physician Urgent Consulting Provider: Kris Holcomb Consult Reason/Comments: gallbladder nodule Do you want consulting provider notified?: Yes Primary care physician: Lalo Cookqvi Hospital Course: Discharge Diagnosis: Sepsis and UTI HARMEET Abnormal CT finding showing nodularity of the gallbladder wall Cholelithiasis History of type 2 diabetes Seizure disorder Hyperlipidemia GERD Mood disorder Hospital Course: 68-year-old male with a past medical history of type 2 diabetes, seizure disorder, mood disorder, hyperlipidemia, and GERD presents for evaluation of altered mental status. Patient is sleeping and not arousable during time of interview. Per the [facility] (where the patient normally stays) the patient typically is A&O x 2 and almost fully deaf so normally communicates through whiteboard. Per the patient's [id number] he has an extensive history of urinary retention and UTIs that have been a big issue in the past. Per the [id number] the patient has had a catheter for about 3 years which she has hospitalized in the past due to inability to remove or replace catheter. Initial lab work from the ER was significant for WBC 39.3, neutrophils 36.7, sodium 134, creatinine 3.44, glucose 161, lactic acid 2.9--> 1.5, UA showed large leukocyte esterase, greater than 182 RBC and WBC, many urine bacteria, 3+ protein. EKG done in the ER showed heart rate of 131 bpm, no ST segment elevation or depression seen, no T-wave inversions seen. Sinus tachycardia with occasional supraventricular premature complexes. ER CXR: Prominent interstitial markings. ER CT ABD: Moderate right and mild to moderate left hydronephrosis with moderate bilateral hydroureter. Some apparent nodularity of the gallbladder wall. Minimal adjacent inflammatory change may be present. Patient admitted to internal medicine service 04/18. Patient seen and examined. Patient is lethargic does not look in acute distress. Has been afebrile. Labs done this morning showed WBC 16, hemoglobin 13.1, sodium 138, potassium 3.9, BUN 22, creatinine 1.28 04/19. Patient seen and examined. Patient continues to be lethargic but not in any acute distress. Labs from this morning showed WBC 7.7, hemoglobin 13.1, sodium 138, potassium 3.6, BUN 15, and creatinine 0.86. 04/20/2024 Patient is seen in follow-up this morning no acute overnight issues noted scheduled to undergo laparoscopic cholecystectomy today with general surgery. Overall prognosis is guarded given patient's significant history would be considered moderate risk although willing to proceed with surgical intervention. Urology following as well with no plans of surgical intervention at this time and will continue current regimen. Patient's vital signs are stable and patient is afebrile and will await surgical report. Follow-up on repeat labs and replace electrolytes per protocol. Continue to monitor hemoglobin closely. 04/21/2024: Patient is seen at bedside. No significant overnight events. Patient underwent successful laparoscopic cholecystectomy yesterday with general surgery, found to have very inflamed gallbladder with copious amounts of pus within the gallbladder. Urology and general surgery following. Vitals within normal limits, will follow-up on labs and replace electrolytes per protocol. Continue to monitor hemoglobin, currently increased from yesterday from 12.6 to now 13.9. 04/22/2024: Patient seen at bedside, no significant overnight events. Patient's hemoglobin continues to be stable, white count remains elevated at 14.46. Repeat blood cultures ordered yesterday. While admitted to the hospital the patient was treated for sepsis and UTI with Rocephin initially. Patient had imaging which showed cholelithiasis so at that point general surgery was consulted. General surgery decided to perform a laparoscopic cholecystectomy which successfully removed the bladder without complications. Of note general surgery reported when they open the gallbladder they found a large amount of pus which raise our suspicion for some other sort of infection going on within the GI tract or in the blood of the patient. The patient received repeat blood cultures which ended up coming back negative after 48 hours of no growth, and patient also had urine culture done which did not grow any bacteria. Due to the suspicion of some sort of GI infection going on in the setting of finding copious amounts of pus in the gallbladder the patient is antibiotics were switched from Rocephin to Zosyn for better anaerobic coverage. On day of discharge, patient's vitals remained stable, white count continues to decrease from initial peak at around 14 and patient is not showing any overt signs of infection at this time. Surgical scars are also healing well. General surgery signed off as they saw no further complications that possibly could be coming from the surgery. Patient is medically and hemodynamically stable for discharge back to [facility]. Patient is advised to follow-up with his PCP. Pt seen and examined at bedside: Patient laying in bed, not communicating due to severe hearing loss in both ears but resting comfortably. Vital signs reveiwed and stable: General: non toxic, no distress, appears at stated age, normal weight Derm: no unusual rashes/lesions, warm Head: atraumatic, normocephalic, symmetric Eyes: EOMI, no lid lag, anicteric sclera, pupils equal round reactive to light ENT: Nose and ears atraumatic Neck: No cervical lymphadenopathy, trachea midline, supple Mouth: no lip lesion, mucus membranes moist Cardiovascular: S1S2 reg, no murmur, positive dorsalis pedis pulse bilateral, no edema Lungs: Decreased air entry bilaterally, no rhonchi, no rales, no accessory muscle use Abdominal: soft, nontender to palpation, no guarding, Incision sites clean dry and intact. AMANDA drain serosanguineous output Ext: muscle strength 5 out of 5 in all 4 extremities grossly, no gross muscle atrophy, no contractures, Neuro: CN II-XI grossly intact, no gross focal neuro deficits Psych: Alert, oriented, appropriate affect A total of greater than 30 minutes were spent preparing this complex discarge summary. Patient was discharged on 04/23/2024, 13: 41. Patient Condition at Discharge: Serious Plan - Discharge Summary Discharge Rx Participant: No New Discharge Prescriptions: New Amoxic-Pot Clav 875-125Mg [Augmentin 875-125] 1 tab PO Q12HR 10 Days #20 tab Continue Thiamine HCl [Vitamin B-1] 300 mg PO DAILY Folic Acid 0.4 mg PO DAILY Atorvastatin [Lipitor] 10 mg PO HS Acetaminophen Tab [Tylenol] 650 mg PO Q6H PRN PRN Reason: Pain QUEtiapine [SEROquel] 100 mg PO HS Sertraline [Zoloft] 25 mg PO DAILY metFORMIN HCL ER [Glucophage XR] 500 mg PO DAILY Sennosides/Docusate Sodium [Senna Plus 8.6-50 mg Tablet] 2 tab PO HS Sertraline HCl [Zoloft] 50 mg PO DAILY HYDROcodone/APAP 5-325MG [Sharps 5-325] 1 - 2 tab PO Q6HR PRN #32 tab PRN Reason: Pain levETIRAcetam [Keppra] 500 mg PO Q12HR #60 tab Docusate [Colace] 100 mg PO Q12H Lactose-Reduced Food [Ensure Plus] 237 ml PO DAILY Omeprazole [PriLOSEC] 20 mg PO DAILY@0600 QUEtiapine [SEROquel] 50 mg PO BID Aspirin 81 mg PO DAILY #0 Famotidine [Pepcid] 20 mg PO BID@0600,2100 Discharge Medication List Atorvastatin [Lipitor] 10 mg PO HS 04/14/20 [History] Folic Acid 0.4 mg PO DAILY 04/14/20 [History] Thiamine HCl [Vitamin B-1] 300 mg PO DAILY 04/14/20 [History] Acetaminophen Tab [Tylenol] 650 mg PO Q6H PRN 06/14/20 [History] QUEtiapine [SEROquel] 100 mg PO HS 02/20/23 [History] Sertraline [Zoloft] 25 mg PO DAILY 02/20/23 [History] Lactose-Reduced Food [Ensure Plus] 237 ml PO DAILY 01/04/24 [History] Omeprazole [PriLOSEC] 20 mg PO DAILY@0600 01/04/24 [History] QUEtiapine [SEROquel] 50 mg PO BID 01/04/24 [History] Sennosides/Docusate Sodium [Senna Plus 8.6-50 mg Tablet] 2 tab PO HS 01/04/24 [History] Sertraline HCl [Zoloft] 50 mg PO DAILY 01/04/24 [History] metFORMIN HCL ER [Glucophage XR] 500 mg PO DAILY 01/04/24 [History] HYDROcodone/APAP 5-325MG [Sharps 5-325] 1 - 2 tab PO Q6HR PRN #32 tab 01/08/24 [Rx] Aspirin 81 mg PO DAILY #0 07/08/24 [Rx] levETIRAcetam [Keppra] 500 mg PO Q12HR #60 tab 01/12/24 [Rx] Docusate [Colace] 100 mg PO Q12H 04/17/24 [History] Famotidine [Pepcid] 20 mg PO BID@0600,2100 04/17/24 [History] Amoxic-Pot Clav 875-125Mg [Augmentin 875-125] 1 tab PO Q12HR 10 Days #20 tab 04/23/24 [Rx] Follow up Appointment(s)/Referral(s): Lalo Tubbs MD [Primary Care Provider] - 1-2 days (ECF please call for follow-up appointment.) Kris Holcomb MD [STAFF PHYSICIAN] - 1 Week Patient Instructions/Handouts: Urinary Tract Infection in Men (DC), Laparoscopic Cholecystectomy (DC) Activity/Diet/Wound Care/Special Instructions: No driving while taking Sharps No lifting over 10 pounds You may shower. No soaking or tub baths for 2 weeks Very light activity until you are reevaluated at your follow up appointment with your surgeon Keep a log of AMANDA drain output and bring with you to your follow-up appointment Milk/strip drains 2-3 times a day Discharge Disposition: TRANSFER TO SNF/ECF
--- NOTE | 2024-04-23 15:25 | P.PN ---
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 On today's evaluation that is 04/23/2024,the patient remains to be afebrile the patient is breathing comfortably and is currently on a room air the patient is hemodynamically stable vomiting diarrhea any change reported by the nursing staff. Patient white count is 13.06, creatinine 0.9 Objective - Vital Signs Vital signs: Vital Signs Temp 98.1 F 04/23/24 07:52 Pulse 75 04/23/24 07:52 Resp 18 04/23/24 07:52 BP 112/65 04/23/24 07:52 Pulse Ox 98 04/23/24 07:52 FiO2 Intake & Output 04/22/24 04/23/24 04/23/24 18:59 06:59 18:59 Output Total 370 890 Balance -370 -890 Weight 110 kg Output: Drainage 60 140 Abdomen 60 140 Urine 310 750 Other: Voiding Method Indwelling Catheter - Exam GENERAL DESCRIPTION: An elderly male lying in bed in no distress RESPIRATORY SYSTEM: Unlabored breathing , decreased breath sounds at bases HEART: S1 S2 regular rate and rhythm , ABDOMEN: Soft , no tenderness EXTREMITIES: No edema feet - Labs CBC & Chem 7: 04/23/24 03:45 04/23/24 03:45 Labs: Abnormal Lab Results - Last 24 Hours (Table) 04/23/24 04/23/24 04/23/24 Range/Units 03:45 03:45 11:41 WBC 13.06 H (4.50-10.00) X 10*3/uL RBC 4.26 L (4.40-5.60) X 10*6/uL Hgb 12.8 L (13.0-17.0) g/dL Immature Gran # 0.18 H (0.00-0.04) X 10*3/uL Neutrophils # 10.30 H (1.80-7.70) X 10*3/uL Monocytes # 1.02 H (0.20-1.00) X 10*3/uL BUN/Creatinine Ratio 11.56 L (12.00-20.00) Ratio POC Glucose (mg/dL) 111 H (70-110) mg/dL Calcium 8.0 L (8.7-10.3) mg/dL Microbiology - Last 24 Hours (Table) 04/17/24 00:47 Blood Culture - Final Blood 04/21/24 11:58 Blood Culture - Preliminary Blood Assessment and Plan (1) Leukocytosis Current Visit: Yes Status: Acute Code(s): D72.829 - ELEVATED WHITE BLOOD CELL COUNT, UNSPECIFIED SNOMED Code(s): 542811837 (2) Sepsis Current Visit: Yes Status: Acute Code(s): A41.9 - SEPSIS, UNSPECIFIED ORGANISM SNOMED Code(s): 05029205 (3) Cholecystitis Current Visit: Yes Status: Acute Code(s): K81.9 - CHOLECYSTITIS, UNSPECIFIED SNOMED Code(s): 61804665 Plan: 1patient presented to hospital with sepsis in this patient who did have fever tachycardia elevated white count source likely complicated UTI and concern for possible obstructive uropathy as patient did have elevated creatinine 2patient CT of abdominal pelvis did shows evidence of hydronephrosis patient has been evaluated by urology recommending no intervention continue with the Quinones catheter 3patient also have evidence of gallstones s/p cholecystectomy with concern for empyema of the gallbladder as per discussion with the [employer] for surgical team ankit ent has been cleared for discharge will consider a 10-day course of oral Augmentin on discharge Dictation was produced using [employer] dictation software. please excuse any grammatical, word or spelling errors. Time with Patient: Less than 30
[2024-04-23 16:52] LABS: Glucose,Whole Blood 86 mg/dL (70-110)
== END 2024-04-23 17:25 | DRG 987 ==
LOC: EC 00:22 → 5NMEDONC 02:25 → OBSVTOIN 02:25 → 3SCARD 05:04 → 4SSUR 04-18 12:23
PROVIDERS: ADMIT Hospitalist; ATTEND Hospitalist
PROC: 0FT44ZZ Resection of Gallbladder, Percutaneous Endoscopic Approach (ICD-10-PCS; principal; 2024-04-20 08:40)
DX: T83.511A Infection and inflammatory reaction due to indwelling urethral catheter, initial encounter (principal); A41.9 Sepsis, unspecified organism; G93.41 Metabolic encephalopathy; N17.0 Acute kidney failure with tubular necrosis; R65.20 Severe sepsis without septic shock; E87.20 Acidosis, unspecified; F01.53 Vascular dementia, unspecified severity, with mood disturbance; K80.00 Calculus of gallbladder with acute cholecystitis without obstruction; N13.6 Pyonephrosis; F01.54 Vascular dementia, unspecified severity, with anxiety; E11.9 Type 2 diabetes mellitus without complications; E78.5 Hyperlipidemia, unspecified; G40.909 Epilepsy, unspecified, not intractable, without status epilepticus; I10 Essential (primary) hypertension; J44.9 Chronic obstructive pulmonary disease, unspecified; K21.9 Gastro-esophageal reflux disease without esophagitis; K82.A1 Gangrene of gallbladder in cholecystitis; N28.89 Other specified disorders of kidney and ureter; N31.9 Neuromuscular dysfunction of bladder, unspecified; E83.42 Hypomagnesemia; F32.A Depression, unspecified; H91.93 Unspecified hearing loss, bilateral; I25.10 Atherosclerotic heart disease of native coronary artery without angina pectoris; I49.1 Atrial premature depolarization; Y73.2 Prosthetic and other implants, materials and accessory gastroenterology and urology devices associated with adverse incidents; Y84.6 Urinary catheterization as the cause of abnormal reaction of the patient, or of later complication, without mention of misadventure at the time of the procedure; Z79.82 Long term (current) use of aspirin; Z79.84 Long term (current) use of oral hypoglycemic drugs; Z79.899 Other long term (current) drug therapy; Z86.73 Personal history of transient ischemic attack (TIA), and cerebral infarction without residual deficits; Z87.891 Personal history of nicotine dependence; Z82.49 Family history of ischemic heart disease and other diseases of the circulatory system; Z80.1 Family history of malignant neoplasm of trachea, bronchus and lung
CPT/HCPCS: 36415; 71045; 74176; 76705; 76770; 80048; 80053; 81001; 83605; 83735; 84100; 84145; 85025; 85610; 85652; 87040; 87086; 87636; 88304; 96361; 96365; 96367; 96368; 99285